=== PATIENT | male | born 1965 | race Caucasian/White ===

== ENCOUNTER 2020-07-08 11:45 | Inpatient (IN) | payer OTHER, SELFPAY ==
[2020-07-08] VITALS (12 sets, daily range): BP systolic 122–145; BP diastolic 67–85; PULSE 89–105; RESP 16–29; TEMP 36.1–37.2; O2SAT 90–96; BMI 30.1; BMI 31.5; BMI 31.6
--- NOTE | 2020-07-08 12:20 | RAD_ITS ---
STUDY: X-RAY CHEST REASON FOR EXAM: Male, 55 years old. COUGH TECHNIQUE: Single AP portable view of the chest. COMPARISON: None. FINDINGS: Patchy airspace disease in both lungs however, greatest on the left. No consolidation or effusion. There is no demonstrated pleural abnormality. Normal size heart. Normal mediastinum and vicente. Normal visualized pulmonary arteries. Normal visualized aortic arch and descending thoracic aorta. Normal visualized thoracic spine. Normal visualized ribs, clavicles, and shoulders. There is no demonstrated abnormality of the visualized soft tissue structures of the upper abdomen. RAD/Chest 1 View (Portable) IMPRESSION: Patchy airspace disease bilaterally Electronically Signed: Scott Carmichael DO at 13:31 EST Tel , Service support ,
--- NOTE | 2020-07-08 12:22 | ED.VISSUMM ---
- ER Visit Summary Date of Service: 07/08/20 Chief Complaint: Shortness of breath and cough History of Present Illness: The patient is a 55 M who presents with shortness of breath and cough that has been getting worse over the past 10 days. Patient was diagnosed with COVID-19 on 07/05/2020. Patient states his chest feels like it is burning. Patient states it is worse with deep breathing. Patient admits to loss of taste and smell. Patient states she has been having fevers up to 102.5 at home but these are improving. Patient admits to some headaches. Patient denies any rhinorrhea or sore throat. Patient denies any chest pain or palpitations. Patient admits to decreased appetite but denies any nausea or vomiting. Physical Examination: Vital signs are stable. Patient is afebrile. Patient is in no acute distress. Oral mucosa is pink and moist. Neck is supple. Trachea is midline. There is no JVD noted. Heart was regular rate and rhythm. Lungs are clear but diminished bilaterally. Abdomen is soft. Bowel sounds are normal. There is no tenderness. There is no rebound or guarding noted. Skin is warm and dry. Cranial nerves II through XII are intact. There are no focal motor or sensory deficits noted. Extremities are intact. There is no calf tenderness or edema. Test Results: CBC shows white blood cell count 4.0. Comprehensive metabolic profile was within normal limits. Portable chest x-ray was obtained. There is 1 view. On my interpretation, there is patchy bilateral airspace disease. There is no effusion noted. There is no cardiomegaly noted. There is no pneumothorax. Bony thorax is normal. Radiologist also interpreted the x-ray and agrees. Emergency Department Course and Treatment: Patient was given 6 puffs of an albuterol inhaler here. Patient was ambulated on room air patient's pulse oximeter dropped to 88% at the end of ambulation. Patient was placed back on oxygen at 2 L nasal cannula and his saturation improved to 95%. Patient was given a dose of Decadron here. Case was discussed with the hospitalist. She will admit the patient to her service. Patient understood and was agreeable with the plan. All questions were answered. Disposition: Admit to hospital Impression: 1. COVID-19 pneumonia 2. Hypoxia This note was generated with [employer] software. It may contain incorrect words, spelling, and punctuation that were not noted in review of the chart prior to signing ED Disposition - Plan for ED Patient: Disposition: Acute Care Hospital [facility] Diagnosis: Pneumonia due to COVID-19 virus, Hypoxia Referrals: Oswald Kenyon MD [Primary Care Provider] -
[2020-07-08 12:39] LABS: Absolute Lymphocyte Count 0.52 X10^3/uL (0.83-4.51); Absolute Neutrophil Count 3.3 X10^3/uL (2.0-7.7); Basophil# 0.01 X10^3/uL; Basophil% 0.2 % (0-1); Hematocrit 41.4 % (40-54); Hemoglobin 13.6 g/dL (13.0-16.5); Lymphocyte # 0.52 X10^3/ul (4.0); Lymphocyte % 12.9 % (19-41); Mean Corp Hgb Conc 32.9 g/dL (32-36); Mean Corpuscular Volume 85.2 fL (80-94); Monocyte# 0.24 X10^3/uL; NRBC Flagged by Analyzer 0 % (0-5); Neutrophil # 3.25 X10^3/uL (2.7-7.7); Neutrophil % 80.7 % (47-70); POSITIVE DIFFERENTIAL YES; Platelet Count 154 K/mm3 (150-450); RBC Distribution Width CV 12.8 % (11.6-14.6); RBC Distribution Width SD 40.5 fl (35.1-43.9); Red Blood Count 4.86 M/mm3 (4.6-6.2)
[2020-07-08 12:47] LABS: Differential Indicated SCAN CRITERIA MET
[2020-07-08 13:04] LABS: Differential Comment SCANNED
[2020-07-08 14:12] LABS: ALB/GLOB Ratio 0.8 RATIO (0.9-2.4); AST(SGOT) 33 U/L (15-37); Alanine Aminotransfer ALT/SGPT 35 U/L (16-61); Albumin, Serum 3.2 g/dL (3.2-5.0); Alkaline Phosphatase 75 U/L (45-117); Anion Gap 6 (5-15); BUN 14 mg/dL (7-18); BUN/Creat Ratio 16.4 RATIO (10-20); Calcium,Total 8.3 mg/dL (8.5-10.1); Chloride 100 mmol/L (98-107); Creatinine, Serum 0.86 mg/dL (0.70-1.30); EST Glomerular Filtration Rate 99 mL/min (>60); Est Glom Filt Rate - Afr Amer 120 mL/min (>60); Estimated Creatinine Clearance 102.57 ml/min; Globulin 4.2 g/dL (2.2-4.2); Glucose 151 mg/dL (74-106); Potassium 3.6 mmol/L (3.5-5.1); Protein, Total 7.4 g/dL (6.4-8.2); Sodium Level 136 mmol/L (136-145)
[2020-07-08] MEDS: dexAMETHasone 10 MG/ML Vial IV (14:57)
--- NOTE | 2020-07-08 15:02 | HP.PCM_ITS ---
Problem List (1) Pneumonia due to COVID-19 virus Status: Acute (2) Hypoxia Status: Acute (3) Diabetes mellitus, type II Status: Chronic Qualifiers: Diabetes mellitus salvage determiner insulin use: without salvage determiner use Diabetes mellitus complication status: with other specified complication Qualified Code(s): E11.69 - Type 2 diabetes mellitus with other specified complication (4) Hypertension Status: Chronic Qualifiers: Hypertension type: essential hypertension Qualified Code(s): I10 - Essential (primary) hypertension (5) Hyperlipidemia Status: Chronic Qualifiers: Hyperlipidemia type: unspecified Qualified Code(s): E78.5 - Hyperlipidemia, unspecified (6) Obesity (BMI 30.0-34.9) Status: Chronic History of Present Illness Date of Admission: 07/08/20 Chief Complaint: Dyspnea, hypoxia, recent + COVID The patient is a 55 y/o M w/ PMHx: HTN, HLD, Diabetes mellitus type II, Obesity who presents to the [facility] ED on 07/08/20 with noted initial 06/28/20 onset COVID symptoms including fever, chills, headaches, alteration in sense of taste and smell as well as dyspnea and cough, progressively worsening, worse with exertion with hypoxia with reportedly positive testing on 07/05/2020 with referral per primary care to the ED for possible admission given worsening status. Patient at home has been having fevers up to 102.5 but notes these have been improving. 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 His is a teacher and has been at home during this time with no ill contacts and she has remained healthy per his report. Work-up in the ED included T 97, heart rate 105, BP 128/77, respiratory rate 28, initially 88% on room air with activity, improved to 96% on 2 L nasal cannula, 93% on room air at rest, CBC with WC 4, hemoglobin 13.6, platelet 154 with lymphopenia, CMP with glucose 151 otherwise not marked appearing, chest x-ray with patchy airspace disease bilaterally. In the ED patient ministered albuterol as well as Decadron. Past Medical History Past Medical History (Chronic Problems): Chronic Problems Diabetes mellitus, type II (Chronic) Hypertension (Chronic) Hyperlipidemia (Chronic) Obesity (BMI 30.0-34.9) (Chronic) Allergies No Known Allergies Allergy (Verified 12/26/20 11:46) Home Medications: Ambulatory Orders Medication Instructions Recorded Aspirin 325 mg PO DAILY@0800 11/28/15 Cyanocobalamin (Vitamin B-12) 2,000 mcg PO DAILY 11/28/15 [Vitamin B-12] Lisinopril [Zestril] 2.5 mg PO DAILY 11/28/15 Multivitamin [Daily Multiple 1 each PO DAILY 11/28/15 Vitamin] Rosuvastatin Calcium [Crestor] 40 mg PO DAILY 11/28/15 Arginine [l-Arginine] 500 mg PO DAILY 07/08/20 Dulaglutide [Trulicity] 1 injectable SQ QWEEK 07/08/20 Magnesium 250 mg PO DAILY 07/08/20 Metformin HCl [Metformin HCl ER] 2,000 mg PO DAILY 07/08/20 Pioglitazone [Actos] 45 mg PO DAILY 07/08/20 Selenium 200 mcg PO DAILY 07/08/20 Sildenafil Citrate [Viagra] 100 mg PO PRN PRN 07/08/20 Surgical History: - - Left knee arthroscopic surgery. Psychiatric History: No pertinent psych hx Lives: Spouse/ Significant Other Smoking Status: Never smoker Tobacco Use: Non-smoker Alcohol: None Drugs: None - *Family History Maternal History Items: Diabetes, Heart Disease Paternal History Items: Cancer - Father with a history of lymphoma., Diabetes, Heart Disease Review of Systems Constitutional: Reports: Anorexia, Chills, Fever, Malaise, Weakness, Fatigue. Denies: Weight Change HEENT: Reports: Head Aches. Denies: Sinus Congestion, Sinus Drainage Cardiovascular: Reports: Chest Pain. Denies: Palpitations Respiratory: Reports: Cough, Pleuritic Pain, Shortness of Breath, Shortness of breath upon exertion. Denies: Shortness of breath at rest, Sputum production, Wheezing Gastrointestinal: Reports: Abdominal Pain. Denies: Diarrhea, Nausea, Vomiting Genitourinary: Denies: Dysuria Musculoskeletal: Reports: Joint Pain, Muscle pain. Denies: Joint Tenderness Skin: Denies: Rash, Wounds Neurological: Denies: Numbness, Tingling, Focal weakness Psychiatric: Denies: Anxiety, Depression, Homicidal Ideations, Suicidal Ideations Hematologic/ Lymphatic: Denies: Easy Bruising, Easy Bleeding VTE Information - Inpt Only VTE Present on Admission: No VTE Mechan Device Prophylaxis: SCD's VTE Pharm Prophylaxis ordered?: Yes Patient Problems: Active and Suspected Problems Pneumonia due to COVID-19 virus (Acute) Hypoxia (Acute) Subjective: Patient seated upright in ED bed, fatigued appearing otherwise no acute distress. Objective: Physical Examination: General: awake, alert, oriented x 3 and cooperative, seated upright in the ED bed, fatigued and ill-appearing but no acute distress. Skin: normal color, turgor, no icterus, cyanosis. HEENT: AT/NC, EOMI, PERRLA, dry MM, no carotid bruits or JVD noted. Lungs: Diffusely diminished, greater bases, decreased effort secondary to coughing elicited with an increased respiratory inspiratory effort, no rales, ronchi or wheezing. Heart: Mildly tachycardic with regular rhythm; no gallop, rub audible. Abdomen: soft, obese, NTTP, ND, mildly hyperactive BS, no HSM. Extremities: no cyanosis, clubbing, or edema. Neurological: patient awake, alert, oriented as noted; cognitive function intact; pupils equally reactive to light and accomodation; cranial nerves II-XII grossly normal, moving all 4 extremities, no focal deficits, strength moderately to severely globally decreased secondary to acute presentation. Psychiatric: affect appears fatigued, ill-appearing, no acute evidence of depressive or anxiety feelings. - Physical Exam Vitals/I&O's: Vital Signs Temp Pulse Resp BP Pulse Ox 97 F L 105 H 28 H 128/77 H 96 07/08/20 11:55 07/08/20 14:22 07/08/20 14:22 07/08/20 14:22 07/08/20 14:22 Oxygen Flow Rate (L/min) 2 Oxygen Delivery Method Nasal Cannula Weight: 210 lb Body Mass Index (BMI) 30.1 Finger Stick Blood Glucose 205 Laboratory Results 07/08/20 12:25: WBC 4.0 L, RBC 4.86, Hgb 13.6, Hct 41.4, MCV 85.2, MCH 28.0, MCHC 32.9, RDW Std Deviation 40.5, RDW Coeff of Salma 12.8, Plt Count 154, MPV 11.0, Immature Gran % (Auto) 0.200, Neut % (Auto) 80.7 H, Lymph % (Auto) 12.9 L, [place] % (Auto) 6.0, Eos % (Auto) 0.0, Baso % (Auto) 0.2, Absolute Neuts (auto) 3.3, Absolute Lymphs (auto) 0.52 L, Nucleated RBC % 0, Differential Comment SCANNED, Diff Path Review November07/08/20 12:25: Sodium 136, Potassium 3.6, Chloride 100, Carbon Dioxide 30.0, Anion Gap 6, BUN 14, Creatinine 0.86, Estim Creat Clear Calc 102.57, Est GFR (MDRD) Af Amer 120, Est GFR (MDRD) Non-Af 99, BUN/Creatinine Ratio 16.4, Glucose 151 H, Calcium 8.3 L, Total Bilirubin 0.60, AST 33, ALT 35, Alkaline Phosphatase 75, Total Protein 7.4, Albumin 3.2, Globulin 4.2, Albumin/Globulin Ratio 0.8 L Assessment/Plan All Active Problems Pneumonia due to COVID-19 virus (Acute) Hypoxia (Acute) The patient is a 55 y/o M w/ PMHx: HTN, HLD, Diabetes mellitus type II, Obesity who presents to the [facility] ED on 07/08/20 with noted initial 06/28/20 onset COVID symptoms including fever, chills, headaches, alteration in sense of taste and smell as well as dyspnea and cough, progressively worsening, worse with exertion with hypoxia with reportedly positive testing on 07/05/2020. 1. Acute Hypoxia, Dyspnea, Cough, Fever with Bilateral Pneumonia secondary to Acute Viral Syndrome, COVID-19: Patient with leukopenia, lymphopenia, CXR with lateral patchy infiltrates, will admit to the COVID unit, will maintain on oxygen with wean as tolerated to room air, HOB, IS parameters w/ pending sputum cultures, respiratory viral panel and urine antigens, will obtain procalcitonin, CRP, CPK, Ferritin, LDH, D-dimer, troponin, continue supportive care including q 2 hour turning including prone given no prone bed availability and judicious hydration, closely monitor for worsening status for ARDS and multiorgan failure, continue IV decadron 6 mg x 10 days total, consult infectious disease for initiation of remdesivir treatment and evaluation. 2. Diabetes mellitus type II: Hold oral home regimen, will need to closely monitor blood sugars as expect elevations given steroid usage, ADA diet, accu checks w/ ISS. 3. Hypertension: Continue home regimen including lisinopril with hold parameters, PRN hydralazine. 4. Hyperlipidemia: Continue home statin regimen. 5. Obesity: Weight loss and lifestyle changes encouraged. 6. DVT Prophylaxis: SCDs, lovenox. 7. CODE STATUS: Full code. Inpatient E&M: 85268 Init Hosp L3
[2020-07-08 16:34] LABS: Ferritin 743 ng/mL (26-388); LDH 286 U/L (87-241); Magnesium 2.2 mg/dL (1.6-2.6)
[2020-07-08 16:40] LABS: BNP,B-Type NATRIURETIC PEPTIDE 24.9 pg/mL (0-100)
[2020-07-08 17:00] LABS: D-Dimer Quantitative (DVT/PE) 0.71 FEU/ug/m (0.27-0.49)
--- NOTE | 2020-07-08 17:29 | CT_ITS ---
STUDY: CTA CHEST REASON FOR EXAM: Male, 55 years old. Viral pneumonia, elevated d-dimer RADIATION DOSAGE (If Supplied By Facility): CTDIvol = ( 25.09 ) mGy, DLP = ( 544.97 ) mGycm TECHNIQUE: The examination was performed with the intravenous administration of IV 100mL Isovue-370. Post-processing of the angiographic images was performed, with multiplanar reformation and 3D reconstruction. Individualized dose optimization techniques were used for this CT. COMPARISON: None. FINDINGS: Examination is technically suboptimal due to injection parameters and scan time and suboptimal enhancement in the pulmonary artery. Enhancement in the pulmonary artery is 191HU, guidelines recommended optimal greater than 250. Additionally, enhancement is higher in the aorta due to late phase of scanning. Diagnostic information is available. There is no large central pulmonary embolism. Segmental and subsegmental arteries are not evaluable. Right heart is normal. Pulmonary artery is normal caliber. Coronary arteries are severely diseased. Cardiac chambers are normal in size and shape with normal pericardium. There are scattered irregularly-shaped mild extent groundglass opacities. Left lower lung is atelectatic due to elevated/eventrated left hemidiaphragm, possibly paralyzed. Right hemidiaphragm is normal. There are no pleural effusions, pulmonary edema or pneumothorax. Osseous structures are intact. Liver is fatty infiltrated. CT/CTA Chest W/WO Contrast IMPRESSION: 1. Technically suboptimal exam. No large/central pulmonary embolism. 2. Refer to ultrasonography of the lower extremities for further risk stratification. 3. Severe coronary artery disease. 4. Elevated left hemidiaphragm, possibly diaphragmatic eventration and/or paralysis. 5. Mild extent acute viral pneumonia. Electronically Signed: Jose Miguel Dhillon, at 19:49 EST Tel , Service support ,
[2020-07-08 17:31] LABS: Bedside Glucose 173 mg/dL (70-110)
[2020-07-08] MEDS: Insulin Lispro 100 UNIT/ML INSULN.PEN SC ×2 (18:20→20:51)
[2020-07-08] MEDS: 0.9% Normal Saline 1,000 ML 100 ML IV (18:21)
[2020-07-08 19:08] LABS: Procalcitonin 0.08 ng/mL (0.00-0.09)
[2020-07-08] MEDS: Enoxaparin 30 MG/0.3 ML Syringe SC (20:52)
[2020-07-08] MEDS: Famotidine 20 MG Tablet PO (20:53)
[2020-07-08] MEDS: Atorvastatin Calcium 80 MG Tablet PO (20:53)
[2020-07-08 21:45] LABS: Bedside Glucose 235 mg/dL (70-110)
--- NOTE | 2020-07-08 22:16 | PCS.PANDOC ---
PANDEMIC DOCUMENTATION INITIATED: Date: 07/08/20 Time: 0700
--- NOTE | 2020-07-08 22:17 | PCS.PANDOC ---
PANDEMIC DOCUMENTATION INITIATED: Date: 07/08/20 Time: 1899
[2020-07-09] VITALS (7 sets, daily range): BP systolic 119–160; BP diastolic 64–75; PULSE 77–90; RESP 18–20; TEMP 36.6–37.2; O2SAT 87–100
[2020-07-09] MEDS: Insulin Lispro 100 UNIT/ML INSULN.PEN SC ×2 (06:02→12:06)
[2020-07-09 06:31] LABS: Bedside Glucose 213 mg/dL (70-110)
[2020-07-09 06:47] LABS: Absolute Lymphocyte Count 0.37 X10^3/uL (0.83-4.51); Absolute Neutrophil Count 3.4 X10^3/uL (2.0-7.7); Basophil# 0.01 X10^3/uL; Basophil% 0.2 % (0-1); Hemoglobin 13.1 g/dL (13.0-16.5); Lymphocyte # 0.37 X10^3/ul (4.0); Mean Corp Hgb Conc 33.6 g/dL (32-36); Mean Corpuscular Hgb 28.5 pg (27.0-32.0); Mean Corpuscular Volume 84.8 fL (80-94); Mean Platelet Vol. 11.8 fl (6.2-12.0); Monocyte# 0.28 X10^3/uL; Monocyte% 6.8 % (0-10); NRBC Flagged by Analyzer 0 % (0-5); Neutrophil # 3.42 X10^3/uL (2.7-7.7); Neutrophil % 83.5 % (47-70); POSITIVE DIFFERENTIAL YES; Platelet Count 163 K/mm3 (150-450); RBC Distribution Width CV 12.9 % (11.6-14.6); RBC Distribution Width SD 39.4 fl (35.1-43.9); White Blood Count 4.1 K/mm3 (4.4-11.0)
[2020-07-09 07:01] LABS: Differential Indicated SCAN CRITERIA MET
--- NOTE | 2020-07-09 07:03 | PN_ITS ---
Patient Problems: Active and Suspected Problems Pneumonia due to COVID-19 virus (Acute) Hypoxia (Acute) Vitals/I&O's: Vital Signs Temp Pulse Resp BP Pulse Ox 99 F 85 18 119/64 93 07/09/20 02:39 07/09/20 02:39 07/09/20 02:39 07/09/20 02:39 07/09/20 02:39 Oxygen Flow Rate (L/min) 2 Oxygen Delivery Method Nasal Cannula Weight: 224 lb Body Mass Index (BMI) 31.5 Finger Stick Blood Glucose 205 Intake and Output for Last 24 Hours 07/07/20 07/08/20 07/09/20 23:59 23:59 23:59 Intake Total 750 / 750 240 / 240 Output Total 400 / 400 Balance 350 / 350 240 / 240 Microbiology Past 72 Hours 07/08/20 22:57 Interface Orders Legionella Antigen - Final 07/08/20 22:57 Interface Orders Streptococcus pneumoniae Antigen (M - Final 07/08/20 19:55 Mucosa - Nasopharyngeal Respiratory Panel (PCR) - Final Laboratory Results 07/08/20 12:25: WBC 4.0 L, RBC 4.86, Hgb 13.6, Hct 41.4, MCV 85.2, MCH 28.0, MCHC 32.9, RDW Std Deviation 40.5, RDW Coeff of Salma 12.8, Plt Count 154, MPV 11. 0, Immature Gran % (Auto) 0.200, Neut % (Auto) 80.7 H, Lymph % (Auto) 12.9 L, [place] % (Auto) 6.0, Eos % (Auto) 0.0, Baso % (Auto) 0.2, Absolute Neuts (auto) 3.3, Absolute Lymphs (auto) 0.52 L, Nucleated RBC % 0, Differential Comment SCANNED, Diff Path Review November07/08/20 12:25: Sodium 136, Potassium 3.6, Chloride 100, Carbon Dioxide 30.0, Anion Gap 6, BUN 14, Creatinine 0.86, Estim Creat Clear Calc 102.57, Est GFR (MDRD) Af Amer 120, Est GFR (MDRD) Non-Af 99, BUN/Creatinine Ratio 16.4, Glucose 151 H, Calcium 8.3 L, Total Bilirubin 0.60, AST 33, ALT 35, Alkaline Phosphatase 75, Total Protein 7.4, Albumin 3.2, Globulin 4.2, Albumin/Globulin Ratio 0.8 L 07/08/20 12:25: D-Dimer Quant (PE/DVT) 0.71 H* 07/08/20 12:25: Magnesium 2.2, Ferritin 743 H, Lactate Dehydrogenase 286 H, Troponin I < 0.015, C-React Prot Ext Range 40.20 H 07/08/20 12:25: B-Natriuretic Peptide 24.9 07/08/20 17:18: POC Glucose 173 H 07/08/20 18:15: Procalcitonin 0.08 07/08/20 20:51: POC Glucose 235 H 07/09/20 05:52: Sodium Pending, Potassium Pending, Chloride Pending, Carbon Dioxide Pending, Anion Gap Pending, BUN Pending, Creatinine Pending, Est GFR (MDRD) Af Amer Pending, Est GFR (MDRD) Non-Af Pending, BUN/Creatinine Ratio Pending, Glucose Pending, Calcium Pending, Total Bilirubin Pending, AST Pending, ALT Pending, Alkaline Phosphatase Pending, Total Protein Pending, Albumin Pending 07/09/20 05:52: WBC 4.1 L, RBC 4.60, Hgb 13.1, Hct 39.0 L, MCV 84.8, MCH 28.5, MCHC 33.6, RDW Std Deviation 39.4, RDW Coeff of Salma 12.9, Plt Count 163, MPV 11.8, Immature Gran % (Auto) 0.500, Neut % (Auto) 83.5 H, Lymph % (Auto) 9.0 L, [place] % (Auto) 6.8, Eos % (Auto) 0.0, Baso % (Auto) 0.2, Absolute Neuts (auto) 3.4, Absolute Lymphs (auto) 0.37 L, Nucleated RBC % 0 07/09/20 06:01: POC Glucose 213 H Current Medications Acetaminophen (Acetaminophen 325 Mg Tablet) 650 mg PO Q6H PRN PRN PRN Reason: Pain Score 1-10/Temp > 100.7 F Al Hydroxide/Mg Hydroxide (Mag Hydrox/Al Hydrox/Simeth 30 Ml Udc) 30 ml PO Q6H PRN PRN PRN Reason: Gastric Burning Albuterol Sulfate (Albuterol Sulfate 8 Gm Inhaler (60 Puffs)) 4 - 8 puff INHALATION Q4H PRN PRN PRN Reason: Dyspnea, wheezing Aspirin (Aspirin 81 Mg Tab.Chew) 81 mg PO DAILY COUNT INCLUDES THE [facility] Atorvastatin Calcium (Atorvastatin Calcium 80 Mg Tablet) 80 mg PO QHS COUNT INCLUDES THE [facility] Last Admin: 07/08/20 20:53 Dose: 80 mg Documented by: Dexamethasone Sodium Phosphate (Dexamethasone 10 Mg/Ml Vial) 6 mg IV DAILY COUNT INCLUDES THE [facility] Stop: 07/18/20 10:01 Enoxaparin Sodium (Enoxaparin 30 Mg/0.3 Ml Syringe) 30 mg SC BID COUNT INCLUDES THE [facility] Last Admin: 07/08/20 20:52 Dose: 30 mg Documented by: Famotidine (Famotidine 20 Mg Tablet) 20 mg PO BID COUNT INCLUDES THE [facility] Last Admin: 07/08/20 20:53 Dose: 20 mg Documented by: Guaifenesin (Guaifenesin 10 Ml Udc (200mg/10ml)) 20 ml PO Q4H PRN PRN PRN Reason: COUGH Hydralazine HCl (Hydralazine 20 Mg/Ml Vial) 10 mg IV Q4H PRN PRN PRN Reason: SBP > 160 Remdesivir 100 mg/ Sodium (Chloride) 250 mls @ 125 mls/hr IV DAILY COUNT INCLUDES THE [facility] Stop: 07/12/20 11:59 Sodium Chloride () 250 mls @ 15 mls/hr IV .[id number] PRN PRN Reason: Saline Flush Sodium Chloride () 250 mls @ 15 mls/hr IV .[id number] PRN PRN Reason: Additional IVPB Infusion Insulin Human Lispro (Insulin Lispro 100 Unit/Ml Insuln.Pen) 0 unit [facility]; Protocol Last Admin: 07/09/20 06:02 Dose: 2 u Documented by: Lisinopril (Lisinopril 2.5 Mg Tablet) 2.5 mg PO DAILY COUNT INCLUDES THE [facility] Magnesium Hydroxide (Magnesium Hydroxide 30 Ml Udc) 30 ml PO DAILY PRN PRN PRN Reason: Constipation Melatonin (Melatonin 3 Mg Tablet) 3 mg PO QHS PRN PRN PRN Reason: INSOMNIA Nitroglycerin (Nitroglycerin (Inpatient Use) 0.4 Mg Tab.Subl) 0.4 mg SUBLINGUAL Q5M PRN PRN Reason: CARDIAC/CHEST PAIN Ondansetron HCl (Ondansetron 4 Mg/2 Ml Vial) 4 mg IV Q8H PRN PRN PRN Reason: NAUSEA/VOMITING Prochlorperazine Edisylate (Prochlorperazine 10 Mg/2 Ml Vial) 5 mg IV Q4H PRN PRN PRN Reason: Breakthrough nausea/vomiting Psyllium Hydrophilic Mucilloid (Psyllium 1 Packet) 1 packet PO DAILY PRN PRN PRN Reason: Constipation Senna/Docusate Sodium (Senna/Docusate Sodium 1 Tablet) 2 tablet PO BID PRN PRN PRN Reason: Constipation Sodium Chloride (0.9% Saline Lock 10 Ml Syringe) 10 - 40 ml IV UD PRN PRN Reason: SALINE FLUSH Throat Lozenges (Benzocaine/Menthol 1 Lozenge) 1 lozenge MUCOUS MEM Q2H PRN PRN PRN Reason: SORE THROAT Medical Necessity - Tobacco Use Smoking Status: Never smoker Tobacco Use: Non-smoker Assessment/Plan All Active Problems Pneumonia due to COVID-19 virus (Acute) Hypoxia (Acute)
[2020-07-09 07:06] LABS: ALB/GLOB Ratio 0.7 RATIO (0.9-2.4); AST(SGOT) 30 U/L (15-37); Alanine Aminotransfer ALT/SGPT 34 U/L (16-61); Albumin, Serum 2.7 g/dL (3.2-5.0); Alkaline Phosphatase 65 U/L (45-117); Anion Gap 8 (5-15); BUN 17 mg/dL (7-18); BUN/Creat Ratio 25.4 RATIO (10-20); Calcium,Total 8.2 mg/dL (8.5-10.1); Chloride 103 mmol/L (98-107); Creatinine, Serum 0.67 mg/dL (0.70-1.30); EST Glomerular Filtration Rate 132 mL/min (>60); Est Glom Filt Rate - Afr Amer 160 mL/min (>60); Estimated Creatinine Clearance 131.65 ml/min; Glucose 202 mg/dL (74-106); Potassium 3.7 mmol/L (3.5-5.1); Protein, Total 6.7 g/dL (6.4-8.2); Sodium Level 137 mmol/L (136-145)
[2020-07-09 07:32] LABS: Differential Comment SCANNED
[2020-07-09] MEDS: Aspirin 81 MG TAB.CHEW PO (09:12)
[2020-07-09] MEDS: Famotidine 20 MG Tablet PO (09:12)
[2020-07-09] MEDS: Enoxaparin 30 MG/0.3 ML Syringe SC (09:12)
[2020-07-09] MEDS: Lisinopril 2.5 MG Tablet PO (09:12)
[2020-07-09] MEDS: dexAMETHasone 10 MG/ML Vial 6 MG IV (09:13)
[2020-07-09] MEDS: 0.9% Saline Lock 10 ML Syringe IV (09:14)
--- NOTE | 2020-07-09 11:43 | DCINST_ITS ---
- Discharge Diagnoses Current Active Problems: Current Active and Chronic Problems 1. Acute Hypoxia, Dyspnea, Cough, Fever with Bilateral Pneumonia secondary to Acute Viral Syndrome, COVID-19 2. Diabetes mellitus type II 3. Hypertension 4. Hyperlipidemia 5. Obesity You will use the following diet at home:: Calorie/Carbohydrate Controlled (specify 1200, 1400, etc) - Slowly advance your diet as tolerated to ADA diet. Please continue to eat at least a small portion with each meal even if altered taste ongoing. Your food should be the consistency of: Regular Your liquids should be the consistency of: Regular/Thin Discharge Activity: - - Encourage routine movement and continued aggressive incentive spirometer usage of 10x/hr from 7a-7p or upon waking to bedtime. Call your doctor if you observe: Fever of 101 or Higher, Inability to urinate, Inability to have a bowel movement, Shortness of breath, Dizziness, Fainting spells, Chest pain, Uncontrolled pain Instructions: COVID-19: Lying in a Prone Position (Proning), Traveling with Oxygen, Using Oxygen Safely, Coronavirus Disease 2019 (COVID-19): Overview, Coronavirus Disease 2019 (COVID-19): Caring for Yourself or Others, Preventing the Spread of Infection Understanding Isolation Procedures Additional Instructions: Given the severity of your symptoms you would be considered severe and will require a 21 day quarantine to continue through 07/16/19. Please complete the regimen of decadron and while using closely monitor your blood sugars, understanding that likely they will increase while using this steroid. Please continue aggressive incentive spirometer usage at discharge also. Continue home oxygen supplementation until you are cleared by your primary care physician for discontinuation as often people can have low oxygen levels and be asymptomatic with COVID-19. When can positive or suspected COVID-19 patients be discharged, what are the requirements and what needs to be in place for discharge? ?They can be discharged when they are clinically stable. ?They do not need to meet criteria for transmission-based precautions to be discharged as these may be continued at home. ?Patient needs to be able to call for assistance if worsens. ?Household members must have access to PPE and willing to adhere to precaution measures at home. ?The patient needs preferentially to have access to a separate bedroom and bathroom. ?Members in the household must not be at increased risk of COVID-19. ?Must be able to be transported by private vehicle and deliver driver abide personal PPE. Home going instructions: ?Patient to continue similar isolation as in hospital and those also in the home to continue precautions until isolation complete. Transmission-based Precaution Timeline: ?Patients with a confirmed or high suspicion of COVID-19 should remain under home isolation until cleared per infectious disease as noted above. ?Further testing is not required beyond this unless there was noted organ dysfunction. Follow-up Care: ?The primary care should be informed of a COVID-19 positive test if resulted while in the hospital and virtual versus in person follow-up should be arranged. Allergies/Adverse Reactions: Allergies No Known Allergies Allergy (Verified 07/08/20 11:46) Medications to take at Discharge Aspirin 325 mg PO DAILY@0800 11/28/15 Cyanocobalamin (Vitamin B-12) [Vitamin B-12] 2,000 mcg PO DAILY 11/28/15 Lisinopril [Zestril] 2.5 mg PO DAILY 11/28/15 Multivitamin [Daily Multiple Vitamin] 1 each PO DAILY 11/28/15 Rosuvastatin Calcium [Crestor] 40 mg PO DAILY 11/28/15 Arginine [l-Arginine] 500 mg PO DAILY 07/08/20 Dulaglutide [Trulicity] 1 injectable SQ QWEEK 07/08/20 Magnesium 250 mg PO DAILY 07/08/20 Metformin HCl [Metformin HCl ER] 2,000 mg PO DAILY 07/08/20 Pioglitazone [Actos] 45 mg PO DAILY 07/08/20 Selenium 200 mcg PO DAILY 07/08/20 Sildenafil Citrate [Viagra] 100 mg PO PRN PRN 07/08/20 Albuterol Inhaler [Ventolin Hfa] 4 - 8 puff INHALATION Q4H PRN PRN #1 inhaler 07/09/20 Dexamethasone [Decadron] 6 mg PO DAILY 8 Days #8 tab 07/09/20 Famotidine [Pepcid] 20 mg PO BID #60 tab 07/09/20 The following prescriptions were given: Dexamethasone [Decadron] 6 mg PO DAILY 8 Days #8 tab Transmission Status: Pending to [facility] Famotidine [Pepcid] 20 mg PO BID #60 tab Transmission Status: Pending to [facility] [id number] Albuterol Inhaler [Ventolin Hfa] 4 - 8 puff INHALATION Q4H PRN PRN #1 inhaler PRN Reason: Dyspnea, wheezing Transmission Status: Pending to [facility] Primary Care Physician: Oswald Kenyon MD [Primary Care Provider] - Please follow up with your Primary Care Physician in: Follow-up within 3-5 days to review admission. Test Results: Test results from this visit will be discussed in further detail at your follow- up appointment, if applicable. Proposed Discharge Date: 07/09/20
--- NOTE | 2020-07-09 11:50 | PCM.DC.SUM ---
Discharge Date and Diagnosis - Problem List Patient Problems: Active and Suspected Problems Pneumonia due to COVID-19 virus (Acute) Hypoxia (Acute) Date of Admission: 07/08/20 Date of Discharge: 07/09/20 - Primary Discharge Diagnosis Acute Problems: Active Problems 1. Acute Hypoxia, Dyspnea, Cough, Fever with Bilateral Pneumonia secondary to Acute Viral Syndrome, COVID-19 2. Diabetes mellitus type II 3. Hypertension 4. Hyperlipidemia 5. Obesity - Secondary Discharge Diagnosis Chronic Problems: Chronic Problems Diabetes mellitus, type II (Chronic) Hypertension (Chronic) Hyperlipidemia (Chronic) Obesity (BMI 30.0-34.9) (Chronic) Hospital Course and Treatment Operations: None Procedures: EKG Summary of Care Provided: The patient is a 55 y/o M w/ PMHx: HTN, HLD, Diabetes mellitus type II, Obesity who presented to the [facility] ED on 07/08/20 with noted initial 06/28/20 onset COVID symptoms including fever, chills, headaches, alteration in sense of taste and smell as well as dyspnea and cough, progressively worsening, worse with exertion with hypoxia with reportedly positive testing on 07/05/2020 with referral per primary care to the ED for possible admission given worsening status. Patient at home has been having fevers up to 102.5 but notes these have been improving. 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 Work-up in the ED included T 97, heart rate 105, BP 128/77, respiratory rate 28, initially 88% on room air with activity, improved to 96% on 2 L nasal cannula, 93% on room air at rest, CBC with WC 4, hemoglobin 13.6, platelet 154 with lymphopenia, CMP with glucose 151 otherwise not marked appearing, chest x-ray with patchy airspace disease bilaterally. In the ED patient administered albuterol as well as Decadron. The patient was admitted to the COVID unit, maintained on oxygen with oxygenation assessment for discharge requiring 2L supplementation as < 88% at rest and improved to low 90s with 2L NC with activity, HOB, IS parameters w/ unremarkable respiratory viral panel and negative urine antigens, d-dimer mildly elevated 0.71 with follow-up CTPA with no obvious evidence of large or central pulmonary emboli, evidence of coronary artery disease, elevated left hemidiaphragm, evidence mild acute viral pneumonia consistent with COVID. Ferritin 743, LDH 286, CRP 40.20, BNP 24.9, troponin less than 0.015, procalcitonin 0.08. Patient was maintained on IV decadron 6 mg with transition to oral regimen with plan 10 days total, consult infectious disease for initiation of remdesivir treatment and evaluation. Given clinical improvement above expected on 07/09/2020 patient amenable to discharge to home with continued 2 L nasal cannula supplementation, continuation and completion of Decadron regimen and close early follow-up with primary care physician. DAY OF DISCHARGE PROGRESS NOTE: Subjective: Patient without acute event overnight per self and nursing report. Patient feels remarkably improved since day prior, less short of breath, still coughing and dyspnea with exertion with required oxygen supplementation but better than previously he notes. Patient notes less nauseous and was able to tolerate some intake with improvement of his taste and smell. Patient agreeable to discharge to home. Patient will be discharged with follow-up with primary care physician within 3-5 days. Objective: T 97.8, heart rate 90, BP 125/70, respiratory rate 18, 92% on 2 L nasal cannula. Physical Examination: General: awake, alert, oriented x 3 and cooperative, seated upright in the medical surgical bedside chair, less fatigued than day prior, notes breathing is somewhat easier. Skin: normal color, turgor, no icterus, cyanosis. HEENT: AT/NC, EOMI, PERRLA, improved MMM. Lungs: Improved effort, still diminished, greater bases, still shallow secondary to coughing elicited with deep inspiration, no rales, ronchi or wheezing; Heart: Regular rate and rhythm; no gallop, rub audible. Abdomen: soft, obese, NTTP, ND, less hyperactive BS. Extremities: no cyanosis, clubbing, or edema. Neurological: patient awake, alert, oriented as noted; cognitive function appears intact upon questioning,; pupils equally reactive to light and accomodation; cranial nerves II-XII grossly normal, moving all 4 extremities, strength improving, mildly to moderately global decrease. Psychiatric: affect appears improved, more alert, less ill-appearing, no acute evidence of depressive or anxiety feelings. Assessment and Plan: Please see hospital summary above. Patient Problems: Active and Suspected Problems Pneumonia due to COVID-19 virus (Acute) Hypoxia (Acute) - Physical Exam Vitals/I&O's: Vital Signs Temp Pulse Resp BP Pulse Ox 98.1 F 77 20 H 160/70 H 100 07/09/20 09:28 07/09/20 09:28 07/09/20 09:28 07/09/20 09:28 07/09/20 09:28 Oxygen Flow Rate (L/min) 2 Oxygen Delivery Method Room Air Weight: 224 lb Body Mass Index (BMI) 31.5 Finger Stick Blood Glucose 205 Intake and Output for Last 24 Hours 07/07/20 07/08/20 07/09/20 23:59 23:59 23:59 Intake Total 750 / 750 1240 / 1240 Output Total 400 / 400 Balance 350 / 350 1240 / 1240 Microbiology Past 72 Hours 07/08/20 22:57 Interface Orders Legionella Antigen - Final 07/08/20 22:57 Interface Orders Streptococcus pneumoniae Antigen (M - Final 07/08/20 19:55 Mucosa - Nasopharyngeal Respiratory Panel (PCR) - Final Laboratory Results 07/08/20 12:25: WBC 4.0 L, RBC 4.86, Hgb 13.6, Hct 41.4, MCV 85.2, MCH 28.0, MCHC 32.9, RDW Std Deviation 40.5, RDW Coeff of Salma 12.8, Plt Count 154, MPV 11.0, Immature Gran % (Auto) 0.200, Neut % (Auto) 80.7 H, Lymph % (Auto) 12.9 L, [place] % (Auto) 6.0, Eos % (Auto) 0.0, Baso % (Auto) 0.2, Absolute Neuts (auto) 3.3, Absolute Lymphs (auto) 0.52 L, Nucleated RBC % 0, Differential Comment SCANNED, Diff Path Review November07/08/20 12:25: Sodium 136, Potassium 3.6, Chloride 100, Carbon Dioxide 30.0, Anion Gap 6, BUN 14, Creatinine 0.86, Estim Creat Clear Calc 102.57, Est GFR (MDRD) Af Amer 120, Est GFR (MDRD) Non-Af 99, BUN/Creatinine Ratio 16.4, Glucose 151 H, Calcium 8.3 L, Total Bilirubin 0.60, AST 33, ALT 35, Alkaline Phosphatase 75, Total Protein 7.4, Albumin 3.2, Globulin 4.2, Albumin/Globulin Ratio 0.8 L 07/08/20 12:25: D-Dimer Quant (PE/DVT) 0.71 H* 07/08/20 12:25: Magnesium 2.2, Ferritin 743 H, Lactate Dehydrogenase 286 H, Troponin I < 0.015, C-React Prot Ext Range 40.20 H 07/08/20 12:25: B-Natriuretic Peptide 24.9 07/08/20 17:18: POC Glucose 173 H 07/08/20 18:15: Procalcitonin 0.08 07/08/20 20:51: POC Glucose 235 H 07/09/20 05:52: Sodium 137, Potassium 3.7, Chloride 103, Carbon Dioxide 26.0, Anion Gap 8, BUN 17, Creatinine 0.67 L, Estim Creat Clear Calc 131.65, Est GFR (MDRD) Af Amer 160, Est GFR (MDRD) Non-Af 132, BUN/Creatinine Ratio 25.4 H, Glucose 202 H, Calcium 8.2 L, Total Bilirubin 0.40, AST 30, ALT 34, Alkaline Phosphatase 65, Total Protein 6.7, Albumin 2.7 L, Globulin 4.0, Albumin/Globulin Ratio 0.7 L 07/09/20 05:52: WBC 4.1 L, RBC 4.60, Hgb 13.1, Hct 39.0 L, MCV 84.8, MCH 28.5, MCHC 33.6, RDW Std Deviation 39.4, RDW Coeff of Salma 12.9, Plt Count 163, MPV 11.8, Immature Gran % (Auto) 0.500, Neut % (Auto) 83.5 H, Lymph % (Auto) 9.0 L, [place] % (Auto) 6.8, Eos % (Auto) 0.0, Baso % (Auto) 0.2, Absolute Neuts (auto) 3.4, Absolute Lymphs (auto) 0.37 L, Nucleated RBC % 0, Differential Comment SCANNED, Diff Path Review November07/09/20 06:01: POC Glucose 213 H Current Medications Acetaminophen (Acetaminophen 325 Mg Tablet) 650 mg PO Q6H PRN PRN PRN Reason: Pain Score 1-10/Temp > 100.7 F Al Hydroxide/Mg Hydroxide (Mag Hydrox/Al Hydrox/Simeth 30 Ml Udc) 30 ml PO Q6H PRN PRN PRN Reason: Gastric Burning Albuterol Sulfate (Albuterol Sulfate 8 Gm Inhaler (60 Puffs)) 4 - 8 puff INHALATION Q4H PRN PRN PRN Reason: Dyspnea, wheezing Aspirin (Aspirin 81 Mg Tab.Chew) 81 mg PO DAILY [facility] Last Admin: 07/09/20 09:12 Dose: 81 mg Documented by: Atorvastatin Calcium (Atorvastatin Calcium 80 Mg Tablet) 80 mg PO QHS [facility] Last Admin: 07/08/20 20:53 Dose: 80 mg Documented by: Dexamethasone Sodium Phosphate (Dexamethasone 10 Mg/Ml Vial) 6 mg IV DAILY [facility] Stop: 07/18/20 10:01 Last Admin: 07/09/20 09:13 Dose: 6 mg Documented by: Enoxaparin Sodium (Enoxaparin 30 Mg/0.3 Ml Syringe) 30 mg SC BID [facility] Last Admin: 07/09/20 09:12 Dose: 30 mg Documented by: Famotidine (Famotidine 20 Mg Tablet) 20 mg PO BID [facility] Last Admin: 07/09/20 09:12 Dose: 20 mg Documented by: Guaifenesin (Guaifenesin 10 Ml Udc (200mg/10ml)) 20 ml PO Q4H PRN PRN PRN Reason: COUGH Hydralazine HCl (Hydralazine 20 Mg/Ml Vial) 10 mg IV Q4H PRN PRN PRN Reason: SBP > 160 Remdesivir 100 mg/ Sodium (Chloride) 250 mls @ 125 mls/hr IV DAILY [facility] Stop: 07/12/20 11:59 Last Admin: 07/09/20 11:32 Dose: Not Given Documented by: Sodium Chloride () 250 mls @ 15 mls/hr IV .[id number] PRN PRN Reason: Saline Flush Sodium Chloride () 250 mls @ 15 mls/hr IV .[id number] PRN PRN Reason: Additional IVPB Infusion Insulin Human Lispro (Insulin Lispro 100 Unit/Ml Insuln.Pen) 0 unit [facility]; Protocol Last Admin: 07/09/20 06:02 Dose: 2 u Documented by: Lisinopril (Lisinopril 2.5 Mg Tablet) 2.5 mg PO DAILY [facility] Last Admin: 07/09/20 09:12 Dose: 2.5 mg Documented by: Magnesium Hydroxide (Magnesium Hydroxide 30 Ml Udc) 30 ml PO DAILY PRN PRN PRN Reason: Constipation Melatonin (Melatonin 3 Mg Tablet) 3 mg PO QHS PRN PRN PRN Reason: INSOMNIA Nitroglycerin (Nitroglycerin (Inpatient Use) 0.4 Mg Tab.Subl) 0.4 mg SUBLINGUAL Q5M PRN PRN Reason: CARDIAC/CHEST PAIN Ondansetron HCl (Ondansetron 4 Mg/2 Ml Vial) 4 mg IV Q8H PRN PRN PRN Reason: NAUSEA/VOMITING Prochlorperazine Edisylate (Prochlorperazine 10 Mg/2 Ml Vial) 5 mg IV Q4H PRN PRN PRN Reason: Breakthrough nausea/vomiting Psyllium Hydrophilic Mucilloid (Psyllium 1 Packet) 1 packet PO DAILY PRN PRN PRN Reason: Constipation Senna/Docusate Sodium (Senna/Docusate Sodium 1 Tablet) 2 tablet PO BID PRN PRN PRN Reason: Constipation Sodium Chloride (0.9% Saline Lock 10 Ml Syringe) 10 - 40 ml IV UD PRN PRN Reason: SALINE FLUSH Last Admin: 07/09/20 09:14 Dose: 10 ml Documented by: Throat Lozenges (Benzocaine/Menthol 1 Lozenge) 1 lozenge MUCOUS MEM Q2H PRN PRN PRN Reason: SORE THROAT Discharge Activity: - - Encourage routine movement and continued aggressive incentive spirometer usage of 10x/hr from 7a-7p or upon waking to bedtime. Call your doctor if you observe: Fever of 101 or Higher, Inability to urinate, Inability to have a bowel movement, Shortness of breath, Dizziness, Fainting spells, Chest pain, Uncontrolled pain Home Medications: Medications to take at Discharge Aspirin 325 mg PO DAILY@0800 11/28/15 Cyanocobalamin (Vitamin B-12) [Vitamin B-12] 2,000 mcg PO DAILY 11/28/15 Lisinopril [Zestril] 2.5 mg PO DAILY 11/28/15 Multivitamin [Daily Multiple Vitamin] 1 each PO DAILY 11/28/15 Rosuvastatin Calcium [Crestor] 40 mg PO DAILY 11/28/15 Arginine [l-Arginine] 500 mg PO DAILY 07/08/20 Dulaglutide [Trulicity] 1 injectable SQ QWEEK 07/08/20 Magnesium 250 mg PO DAILY 07/08/20 Metformin HCl [Metformin HCl ER] 2,000 mg PO DAILY 07/08/20 Pioglitazone [Actos] 45 mg PO DAILY 07/08/20 Selenium 200 mcg PO DAILY 07/08/20 Sildenafil Citrate [Viagra] 100 mg PO PRN PRN 07/08/20 Albuterol Inhaler [Ventolin Hfa] 4 - 8 puff INHALATION Q4H PRN PRN #1 inhaler 07/09/20 Dexamethasone [Decadron] 6 mg PO DAILY 8 Days #8 tab 07/09/20 Famotidine [Pepcid] 20 mg PO BID #60 tab 07/09/20 Following Prescriptions Were Given to Patient: Dexamethasone [Decadron] 6 mg PO DAILY 8 Days #8 tab Transmission Status: Pending to [facility] 1724 Famotidine [Pepcid] 20 mg PO BID #60 tab Transmission Status: Pending to [facility] 1724 Albuterol Inhaler [Ventolin Hfa] 4 - 8 puff INHALATION Q4H PRN PRN #1 inhaler PRN Reason: Dyspnea, wheezing Transmission Status: Pending to [facility] Primary Care Physician: Oswald Kenyon MD [Primary Care Provider] - Please follow up with your Primary Care Physician in: Follow-up within 3-5 days to review admission. Patient Instructions: Coronavirus Disease 2019 (COVID-19): Overview, Coronavirus Disease 2019 (COVID-19): Caring for Yourself or Others, COVID-19: Lying in a Prone Position (Proning), Traveling with Oxygen, Using Oxygen Safely, Preventing the Spread of Infection Understanding Isolation Procedures Disposition: Home with Home Health Minutes spent on discharge:: 35 Patient Condition:: Fair Medical Necessity - Tobacco Use Smoking Status: Never smoker Tobacco Use: Non-smoker Meaningful Use Info Meaningful Use Diagnoses (Choose all that apply): None applicable Inpatient E&M: 85691 Disch Hosp
[2020-07-09 12:51] LABS: Bedside Glucose 240 mg/dL (70-110)
--- NOTE | 2020-07-09 14:17 | NURSING ---
This nurse faxed information to [facility] and spoke with them regarding need for home oxygen set up and portable tank of o2 for here.
[2020-07-10 12:25] LABS: Pathologist Review Reviewed
--- NOTE | 2020-07-10 15:04 | CASEMGMT ---
[facility] DC PHONE CALL DC DATE: 07/09/2020 DC DISPOSITION: Home with oxygen DC DIAGNOSIS: SARS COVID 2 Intro role of CM to patient via phone. Patient states he did go home with Home oxygen. He does not have a pulse oximeter. P[facility]RO WESTON offered to check with ER for pulse ox, or he could purchase at local pharmacy. Pt will discuss with his . He states he is not short of breath at rest or with activity. Recommended he update his PCP of discharge home with oxygen and he states he will call tomorrow. No further questions. Constance LEVINN RN ACM
[2020-07-11 11:07] LABS: Pathologist Review Reviewed
== END 2020-07-09 17:35 | disposition home health service (06) | DRG 177 ==
LOC: ED 14:59 → MS2 15:24
PROVIDERS: Admitting Provider Family Medicine; Emergency Provider Emergency Medicine; PCP Family Medicine; Visit Provider Family Medicine
DX: U07.1 COVID-19 (principal); J12.89 Other viral pneumonia; E11.9 Type 2 diabetes mellitus without complications; I10 Essential (primary) hypertension; E78.5 Hyperlipidemia, unspecified; E66.9 Obesity, unspecified; R09.02 Hypoxemia; Z68.30 Body mass index [BMI] 30.0-30.9, adult; Z79.82 Long term (current) use of aspirin; Z83.3 Family history of diabetes mellitus
CPT/HCPCS: 36415; 71045; 71275; 80053; 82728; 82962; 83615; 83735; 83880; 84145; 84484; 85025; 85379; 86140; 87449; 87633; 94640; 99251; 99285; J7030; J7050; Q9967; A4216; G0463

== ENCOUNTER → 2025-01-19 | Outpatient (CLI) | payer OTHER, SELFPAY ==
--- NOTE | 2025-01-19 17:10 | RAD_ITS ---
PROCEDURE: CHEST PA AND LATERAL 01/19/2025 REASON FOR EXAM: CAD TECHNIQUE: CHEST PA AND LATERAL COMPARISON: 07/08/2020 FINDINGS: No focal consolidation. Bibasilar subsegmental atelectasis. No pleural effusion or pneumothorax. Cardiac silhouette is within normal limits. No acute fracture. RAD/Chest PA and Lateral IMPRESSION: No focal consolidations. Bibasilar subsegmental atelectasis. Reading Location: [id number]
[2025-01-19 17:18] LABS: Hematocrit 45.0 % (40-54); Hemoglobin 14.9 g/dL (13.0-16.5); Immature Granulocytes Count 0.030 X10^3/uL (0.0-0.0); Mean Corp Hgb Conc 33.1 g/dL (32-36); Mean Corpuscular Volume 86.2 fL (80-94); Mean Platelet Vol. 11.8 fl (6.2-12.0); NRBC Flagged by Analyzer 0 % (0-5); Platelet Count 189 K/mm3 (150-450); RBC Distribution Width CV 13.2 % (11.6-14.6); RBC Distribution Width SD 41.2 fl (35.1-43.9); Red Blood Count 5.22 M/mm3 (4.6-6.2); White Blood Count 6.2 K/mm3 (4.4-11.0)
[2025-01-19 17:59] LABS: Anion Gap 14 (5-15); BUN 24 mg/dL (4-19); BUN/Creat Ratio 26.4 RATIO (10-20); Calcium,Total 9.2 mg/dL (7.6-11.0); Carbon Dioxide 23.0 mmol/L (21.0-32.0); Chloride 102 mmol/L (98-108); Glucose 259 mg/dL (70-99); Potassium 4.6 mmol/L (3.3-5.1)
== END | disposition home or self-care (01) ==
PROVIDERS: PCP Family Medicine; Referring Provider Internal Medicine Cardiovascular Disease; Visit Provider Internal Medicine Cardiovascular Disease
DX: I25.10 Atherosclerotic heart disease of native coronary artery without angina pectoris (principal); R07.9 Chest pain, unspecified
CPT/HCPCS: 36415; 71046; 80048; 85025

== ENCOUNTER 2025-02-07 09:33 | Day surgery (SDC) | payer OTHER, SELFPAY ==
[2025-02-04 11:08] VITALS: BMI 29.0
--- NOTE | 2025-02-21 09:47 | CL.D_ITS ---
Patient Name: WALLACE TURK Study Date: 02/07/2025 Performing: Az Enrique MD Ht: 70 inches 177.8 cm : 1965 Wt: 202.01 lbs 91.63 kg Age: 59 Gender: male BSA: 2.1 PROCEDURE(S) PERFORMED DC01-(70401)LHC/COR/LV CLINICAL PROFILE AND INDICATIONS Indications: Suspected CAD Heart Failure: None Stress/Imaging Stress/Image Study Performed: No CAD Presentations: Unstable angina. CONCLUSIONS Severe triple-vessel disease noted with left ventricular systolic dysfunction mild and a diabetic. RECOMMENDATIONS Surgery consult for coronary revascularization DESCRIPTION OF PROCEDURE The patient arrived to the procedure lab. The risks and benefits of the procedure as well as a full description of our services here and current unavailability of surgical backup were fully explained to the patient and/or their significant other prior to the catheterization. The Timeout was completed, verifying the correct patient and procedure. The patient's procedural site was prepped and draped in the usual fashion. Local anesthetic was given subcutaneously to right radial region with Lidocaine 2%. Using a modified Seldinger technique, arterial access was obtained via the right radial artery, a 6Fr sheath was inserted. Right Coronary Artery selective angiography was then performed in multiple views using a 5 Fr. 4.0 [place] catheter. Left Coronary Artery selective angiography was performed in multiple views using a 5 Fr. 4.0 [place] catheter. Left Ventriculography was performed in JUÁREZ projection using a 5 Fr. Pigtail catheter. LV to AO pullback pressures were then recorded.The arterial sheath was pulled and a TR Band was applied for hemostasis w/ 18ml air CORONARY ANGIOGRAPHY DOMINANCE: Right Dominant LEFT HEART ASSESSMENT Left Ventricular Ejection Fraction: by LV Gram 45 % Anterior Hypokinesis - Moderate Depressed Left Ventricular systolic function LEFT MAIN: Mild calcification, Mild luminal irregularities less than 30% LEFT ANTERIOR DESCENDING ARTERY: This vessel had 3 previously placed stents along proximal 1 with moderate in-stent stenosis followed by 90% stenosis and mid short stent with mild in-stent stenosis followed by another 90% stenotic lesion. The vessel then continues with moderate luminal irregularities and gives off left to right distal collaterals. CIRCUMFLEX ARTERY: Nondominant vessel with a first obtuse marginal branch noted to have mild to moderate disease of first obtuse marginal branch with high-grade stenosis in the AV groove branch with an 80% stenosis prior to the distal bifurcation. RIGHT CORONARY ARTERY: MID RCA: Subtotally occluded mid right coronary artery noted with an acute marginal vessel and then distal [id number] collaterals noted. COLLATERAL FLOW: Collateral flow from Left to Right COMPLICATIONS No Complications PROCEDURE MEDICATIONS Versed 1 mg IV Fentanyl 50 mcg IV Versed 1 mg IV Oxygen: 2 L/min via nasal cannula Baby Aspirin (81mg) 1 Tabs PO @ 02/07/2025 09:45:49 Heparin given IA 02/07/2025 12:07:37 Verapamil 2.5mg, Ntg 100mcgs, 3000 units of Heparin given IA 02/07/2025 12:07:37 SUMMARY OF HEMODYNAMIC DATA Time AIR REST ECG 09:57:18 AO 128/78 (96) SA 12:22:36 LV 144/8, 19 12:35:47 LV 145/9, 13 12:35:56 LV 133/9, 11 12:36:54 LV 135/8, 11 12:36:57 LVp 151/9, 14 12:37:01 AOp 150/79 (107) 12:37:09 AIR REST 12:49:29 Signed By Az Enrique MD On 02/07/2025 12:52:31 Az Enrique MD
== END 2025-02-07 14:50 | disposition home or self-care (01) ==
PROVIDERS: Referring Provider Internal Medicine Cardiovascular Disease; Visit Provider Internal Medicine Cardiovascular Disease
DX: T82.855A Stenosis of coronary artery stent, initial encounter (principal); E11.9 Type 2 diabetes mellitus without complications; I25.10 Atherosclerotic heart disease of native coronary artery without angina pectoris; I10 Essential (primary) hypertension; E78.5 Hyperlipidemia, unspecified; Z91.148 Patient's other noncompliance with medication regimen for other reason; Z91.199 Patient's noncompliance with other medical treatment and regimen due to unspecified reason
CPT/HCPCS: 93458; 99152; 99153; Q9967; C1769; C1894

== ENCOUNTER → 2025-02-10 | Outpatient (CLI) | payer OTHER, SELFPAY ==
--- NOTE | 2025-02-10 16:01 | ECHOD_ITS ---
Reason For Study Reason For Study: CHEST PAIN Procedure This was a 2D Doppler, Color Flow transthoracic echocardiogram. Exam performed in department. Left Ventricle Normal LV size. The left ventricular ejection fraction is 55 %. Stage 1 diastolic dysfunction. No regional wall motion abnormalities noted. Right Ventricle Normal RV size. Normal systolic function. Atria Normal left atrium. Normal right atrium. Mitral Valve Normal mitral valve. Tricuspid Valve Normal tricuspid valve. Aortic Valve Trisinus/trileaflet aortic valve. Pulmonic Valve Normal pulmonic valve. Great Vessels Normal aortic root. The pulmonary artery is normal size. Inferior vena cava collapse with respiration. Pericardium/Pleural No pericardial effusion. MMode/2D Measurements & Calculations LVIDd: 4.9 cm IVSd: 1.0 cm Ao root diam: 3.7 cm LVIDs: 3.6 cm LVPWd: 0.95 cm RVDd: 2.5 cm FS: 27.2 % LAV(MOD-bp): 37.9 ml LVAd ap4: 30.2 cm2 LVAd ap2: 25.9 cm2 LAV(MOD-bp) Indexed: 18.1 ml/m2 LVLd ap4: 8.7 cm LVLd ap2: 8.5 cm LAV(MOD-sp2): 36.2 ml EDV(MOD-sp4): 84.9 ml EDV(MOD-sp2): 69.0 ml LAV(MOD-sp4): 36.4 ml EDV(sp4-el): 89.5 ml EDV(sp2-el): 67.0 ml LVAs ap4: 19.4 cm2 LVAs ap2: 16.9 cm2 LVLs ap4: 7.3 cm LVLs ap2: 7.1 cm ESV(MOD-sp4): 43.4 ml ESV(MOD-sp2): 34.8 ml ESV(sp4-el): 43.8 ml ESV(sp2-el): 34.1 ml EF(MOD-sp4): 48.9 % EF(MOD-sp2): 49.6 % EF(sp4-el): 51.1 % SV(MOD-sp4): 41.5 ml SV(MOD-sp2): 34.2 ml SV(sp4-el): 45.7 ml SI(MOD-sp4): 19.8 ml/m2 SI(MOD-sp2): 16.3 ml/m2 LA A4 area: 14.6 cm2 LA dimension(2D): 3.3 cm RA A4 area: 11.5 cm2 TAPSE: 2.5 cm Time Measurements MV dec time: 0.16 sec Doppler Measurements & Calculations MV E max yony: 53.5 cm/sec Lat Peak E' Yony: 13.6 cm/sec Med Peak E' Yony: 7.0 cm/sec MV A max yony: 76.4 cm/sec E/E' lat: 3.9 E/E' med: 7.7 MV E/A: 0.70 Ao V2 max: 137.2 cm/sec LV V1 max: 99.2 cm/sec PA V2 max: 117.7 cm/sec Ao max P.5 mmHg LV V1 max P.9 mmHg PA V2 mean: 85.5 cm/sec Ao V2 mean: 93.1 cm/sec LV V1 mean P.5 mmHg Ao mean P.8 mmHg LV V1 mean: 76.0 cm/sec Ao V2 VTI: 20.2 cm LV V1 VTI: 17.1 cm AV (velocity ratio): 0.85 ECHO/Echo Complete Interpretation Summary Normal LV size. The left ventricular ejection fraction is 55 %. Stage 1 diastolic dysfunction. Structurally normal valves. Ordering Physician: Az Enrique Referring Physician: ALEXANDRE PCP Performed By: Bernadette Leal, WILL, RVT
== END | disposition home or self-care (01) ==
PROVIDERS: Referring Provider Internal Medicine Cardiovascular Disease; Visit Provider Internal Medicine Cardiovascular Disease
DX: R07.9 Chest pain, unspecified (principal); I25.10 Atherosclerotic heart disease of native coronary artery without angina pectoris
CPT/HCPCS: 93306

== ENCOUNTER → 2025-02-21 | Outpatient (CLI) | payer OTHER, SELFPAY ==
--- NOTE | 2025-02-21 16:31 | CT_ITS ---
PROCEDURE: CHEST WITHOUT CONTRAST 02/21/2025 REASON FOR EXAM: CHEST PAIN History of abdominal aortic aneurysm. TECHNIQUE: Chest CT without contrast. Coronal and Sagittal reconstruction series were provided. One or more dose reduction techniques were used (e.g., Automated exposure control, adjustment of the mA and/or kV according to patient size, use of iterative reconstruction technique RADIATION DOSE SUMMARY: CTDlvol: 15.97 mGy DLP: 590.76 mGycm COMPARISON: Prior study dated July 08, 2020. FINDINGS: Hardware: None Lymph nodes: No significant lymph nodes are seen. Heart and Vasculature: The heart is nonenlarged. Atherosclerotic calcifications of the thoracic aorta. Thoracic aorta and pulmonary arteries have normal contours; noncontrast technique limits evaluation. Coronary Artery Calcifications: Present Lungs and Airways: No evidence of consolidation. No suspicious nodule seen. Pleura: No pleural effusion. Upper Abdomen: Unremarkable Bones: Degenerative changes of the thoracic spine. CT/Chest without Contrast IMPRESSION: Coronary artery calcification (CAC) is is present No acute abnormality is seen. Reading Location: [place] [id number]
== END | disposition home or self-care (01) ==
PROVIDERS: Referring Provider Thoracic Surgery (Cardiothoracic Vascular Surgery); Visit Provider Thoracic Surgery (Cardiothoracic Vascular Surgery)
DX: R07.9 Chest pain, unspecified (principal)
CPT/HCPCS: 71250

== ENCOUNTER → 2025-02-25 | Outpatient (CLI) | payer OTHER, SELFPAY ==
[2025-02-25 09:19] LABS: Creatinine, Urine (random) 101.00 mg/dL (39.00-259.00)
[2025-02-25 09:47] LABS: Microalbumin,Random Urine 14.5 mg/L (<20 mg/L)
[2025-02-25 10:27] LABS: AST(SGOT) 20 U/L (<=37); Alanine Aminotransfer ALT/SGPT 21 U/L (<=46); Albumin, Serum 4.2 g/dL (3.5-5.0); Alkaline Phosphatase 100 U/L (40-129); Anion Gap 14 (5-15); BUN 21 mg/dL (4-19); BUN/Creat Ratio 24.4 RATIO (10-20); Calcium,Total 9.2 mg/dL (7.6-11.0); Carbon Dioxide 22.8 mmol/L (21.0-32.0); Chloride 102 mmol/L (98-108); Cholesterol 146 mg/dL (<=200); Globulin 2.7 g/dL (2.2-4.2); Glucose 288 mg/dL (70-99); Low Density Lipoprotein Calc. 82 mg/dL; Potassium 4.0 mmol/L (3.3-5.1); Triglycerides 99 mg/dL; Very Low Density Lipoprotein 20 mg/dL (5-40); Vitamin D,25 Hydroxy 36.4 ng/mL (30-100); cholesterol:hdl ratio screen 3.27
--- NOTE | 2025-02-25 14:05 | VDLE_ITS ---
Reason For Study Reason For Study: Pre op RIGHT LEFT GSV prox thigh, 0.57 x 0.56 cm. GSV prox thigh, 0.59 x 0.60 cm. GSV mid thigh, 0.44 x 0.46 cm. GSV mid thigh, 0.57 x 0.62 cm. GSV distal thigh, 0.36 x 0.38 cm. GSV distal thigh, 0.51 x 0.55 cm. GSV knee, 0.41 x 0.41 cm. GSV knee, 0.53 x 0.57 cm. GSV prox calf, 0.25 x 0.27 cm. GSV prox calf, 0.29 x 0.29 cm. Branches noted extending from GSV prox calf. Branches noted extending from GSV prox calf. GSV mid calf, 0.26 x 0.26 cm. GSV mid calf, 0.36 x 0.38 cm. GSV distal calf, 0.18 x 0.18 cm. GSV distal calf, 0.32 x 0.39 cm. SSV prox, 0.17 x 0.18 cm. SSV prox, 0.35 x 0.40 cm. SSV mid, 0.29 x 0.28 cm. SSV mid, 0.35 x 0.39 cm. SSV distal, 0.26 x 0.28 cm. SSV distal, 0.35 x 0.41 cm. GSV and SSV are compressible. GSV and SSV are compressible. Procedure This is a venous duplex using B-mode, color flow and spectral Doppler. Exam performed in department. VL/Saphenous Vein Mapping, Bilat Interpretation Summary The great saphenous veins and small saphenous veins are patent and compressible bilaterally. Branches from the great saphenous veins are noted in the proximal calves bilaterally. Segmental diamete rs of the great and small saphenous veins are as documented above. Ordering Physician: JEWEL LANE Performed By: Saray Guzman RVT
--- NOTE | 2025-02-25 14:05 | CDU_ITS ---
Reason For Study Reason For Study: Carotid bruit, Pre op Rt. Velocities/BP Lt. Velocities/BP Prox CCA 94.9/16.8 cm/sec. Prox CCA 100.3/16.8 cm/sec. Mid CCA 99.2/16.8 cm/sec. Mid CCA 87.2/14.6 cm/sec. Dist CCA 83.9/20.1 cm/sec. Dist CCA 76.2/14.6 cm/sec. Prox ICA 104.7/18.8 cm/sec. Prox ICA 61.9/13.5 cm/sec. Mid ICA 88.8/26.2 cm/sec. Mid ICA 72.9/27.8 cm/sec. Dist ICA 80.7/21.2 cm/sec. Dist ICA 50.6/18.3 cm/sec. Rt. ICA/CCA = 1.06. Lt. ICA/CCA = 0.84. Prox ECA 128.4/11.5 cm/sec. Prox ECA 94.9/13.5 cm/sec. Rt. Vert. 51.3/12.6 cm/sec. Lt. Vert. 48.7/13.5 cm/sec. Right Extracranial There is intimal thickening but no significant atherosclerotic plaque noted in the right common carotid artery. There is intimal thickening but no significant atherosclerotic plaque noted in the right internal carotid artery. There is intimal thickening but no significant atherosclerotic plaque noted in the right external carotid artery. Antegrade flow is noted in the right vertebral artery. Left Extracranial There is intimal thickening but no significant atherosclerotic plaque noted in the left common carotid artery. There is intimal thickening but no significant atherosclerotic plaque noted in the left internal carotid artery. There is intimal thickening but no significant atherosclerotic plaque noted in the left external carotid artery. Antegrade flow is noted in the left vertebral artery. Procedure Carotid Duplex [id number]. This is a Carotid Duplex examination using B-mode, color flow and specral Doppler. Exam performed in department. VL/Carotid Duplex Ultrasound Interpretation Summary No significant atherosclerotic plaque or stenosis noted in the internal carotid arteries bilaterally. Flow within the vertebral arteries is antegrade bilaterally. Ordering Physician: JEWEL LANE Performed By: Saray Guzman RVT
== END | disposition home or self-care (01) ==
DX: E11.65 Type 2 diabetes mellitus with hyperglycemia (principal); R09.89 Other specified symptoms and signs involving the circulatory and respiratory systems; R07.89 Other chest pain; Z01.818 Encounter for other preprocedural examination; I71.21 Aneurysm of the ascending aorta, without rupture
CPT/HCPCS: 36415; 80053; 80061; 82043; 82306; 82570; 84439; 84443; 84681; 93880; 93970

== ENCOUNTER 2025-03-17 14:43 | Inpatient (IN) | payer BC, SELFPAY ==
[2025-03-17] VITALS (15 sets, daily range): BP systolic 157–174; BP diastolic 76–93; PULSE 66–100; RESP 10–23; TEMP 36.6–37.1; O2SAT 96–100; BMI 29.9; BMI 30.4
--- NOTE | 2025-03-17 14:57 | EKG12_ITS ---
Test Reason : CP-REPEAT Blood Pressure : */* mmHG Vent. Rate : 78 BPM Atrial Rate : 78 BPM P-R Int : 172 ms QRS Dur : 110 ms QT Int : 382 ms P-R-T Axes : 54 24 -11 degrees QTcB Int : 435 ms Critical Test Result: STEMI Normal sinus rhythm ST elevation consider anterolateral injury or acute infarct ACUTE MO / STEMI Abnormal ECG Confirmed by ROXANA MURRY, DIANA ([id number]), editorial cartoonist RL HAAS ([id number]) on 03/21/2025 9:03:25 AM Referred By: Karen Galloway Confirmed By: DIANA GALLOWAY MD
--- NOTE | 2025-03-17 15:13 | EKG12_ITS ---
Test Reason : CP Blood Pressure : */* mmHG Vent. Rate : 84 BPM Atrial Rate : 84 BPM P-R Int : 172 ms QRS Dur : 112 ms QT Int : 386 ms P-R-T Axes : 60 21 -25 degrees QTcB Int : 456 ms Normal sinus rhythm Nonspecific ST and T wave abnormality Abnormal ECG Confirmed by ROXANA MURRY, DIANA ([id number]), continuity editor RL HAAS ([id number]) on 03/21/2025 9:03:51 AM Referred By: Karen Galloway Confirmed By: DIANA GALLOWAY MD
[2025-03-17 15:16] LABS: Hematocrit 36.0 % (40-54); Hemoglobin 12.0 g/dL (13.0-16.5); Immature Granulocytes Count 0.030 X10^3/uL (0.0-0.0); Mean Corp Hgb Conc 33.3 g/dL (32-36); Mean Corpuscular Volume 87.0 fL (80-94); Mean Platelet Vol. 9.5 fl (6.2-12.0); NRBC Flagged by Analyzer 0 % (0-5); Platelet Count 375 K/mm3 (150-450); RBC Distribution Width CV 13.7 % (11.6-14.6); RBC Distribution Width SD 43.7 fl (35.1-43.9); Red Blood Count 4.14 M/mm3 (4.6-6.2); White Blood Count 8.5 K/mm3 (4.4-11.0)
[2025-03-17] MEDS: Heparin Injection (Vial) 5,000 UNIT/ML VIAL 4000 UNIT IV (15:16)
[2025-03-17 15:19] LABS: Prothrombin Time (Protime)PT. 13.3 SECONDS (11.7-14.9)
[2025-03-17] MEDS: TICAGRELOR 90 MG TABLET 180 MG PO (15:19)
--- NOTE | 2025-03-17 15:21 | EDS_ITS ---
HPI History of Present Illness Chief Complaint: Chest Pain Narrative Narrative: Patient is a 59-year-old male presenting to the emergency department for chest pain that started at 1 PM today. Patient has a past medical history of CAD. Reports he had a bypass [facility] ago. Reports that he had a follow-up appointment on Friday with his surgeon. Reports that today he developed the chest pain reports that his underneath his left arm up into his shoulder blade. Endorses some shortness of breath associated with it. He has been compliant with his medications. [facility] Medical History (Updated 03/17/25 @ 18:[address] Karen Galloway MD) Erectile dysfunction CAD (coronary artery disease) LILA (obstructive sleep apnea) Neuropathy Obesity (BMI 30.0-34.9) Hyperlipidemia Hypertension Diabetes mellitus, type II Home Medications ?Medication ?Instructions ?Recorded ?Last Taken ?Type aspirin 81 mg tablet,delayed 81 mg PO QDAY 01/19/25 Un known History release (Adult Aspirin Regimen) atorvastatin 40 mg tablet (Lipitor) 40 mg PO QHS #90 t abs 02/07/25 Unknown Rx metoprolol succinate 50 mg 50 mg PO QDAY #90 tabs 01/12 03/07 Unknown Rx tablet,extended release 24 hr (Toprol XL) Allergy/AdvReac Type Severity Reaction Status Date / Time atorvastatin (From Lipitor) AdvReac Severe myalgias Verified 03/17/25 14:45 Family History Mother Diabetes CAD (coronary artery disease) Myocardial infarction CVA (cerebral vascular accident) Father Diabetes Surgical History (Updated 03/17/25 @ 15:38 by Jessica Meeks) Hx of CABG (~03/04/25) CAD S/P percutaneous coronary angioplasty (~05/2012) Social History Smoking Status: Never smoker alcohol intake: current ROS ROS ED ROS Narrative see HPI EXAM Physical Exam Narrative Exam Narrative: Vital signs: Reviewed General: Alert and orientedx3. No acute distress HEENT: Head is normocephalic and atraumatic, sinuses nontender, pupils equal round and reactive. Nares are patent. Oropharynx and throat exams normal. Neck: Supple without lymphadenopathy nontender Cardiovascular: Regular rate and rhythm, no murmurs. No rubs or gallops. Normal S1 and S2 Respiratory: Clear to auscultation bilaterally. No wheezes, rales, rhonchi Chest: Surgical scar healing well Abdominal: Soft and nontender. Normal bowel sounds. No guarding or rebound. Nonsurgical abdomen Extremities: No tenderness. No bruising. Normal range of motion. Normal sensation. Skin: No rash or redness. Neurological: Cranial nerves II through XII are grossly intact. Normal strength and sensation. Normal cerebellar function The rest of the physical exam is unremarkable Const Vital Signs: 03/17/25 14:44 03/17/25 15:09 03/17/25 15:10 Temperature 98.7 F Temperature Source Oral Pulse Rate 87 Respiratory Rate 14 23 H Respiratory Effort Respiratory Pattern Blood Pressure 171/93 H 174/91 H Blood Pressure Mean 119 Blood Pressure Source Blood Pressure Position Blood Pressure Location Pulse Ox 98 100 Oxygen Delivery Method Room Air Room Air 03/17/25 15:10 03/17/25 15:16 03/17/25 15:27 Temperature 98.2 F Temperature Source Pulse Rate 66 Respiratory Rate 22 H Respiratory Effort Normal Respiratory Pattern Normal Blood Pressure 174/91 H Blood Pressure Mean 118 Blood Pressure Source Blood Pressure Position Blood Pressure Location Pulse Ox 98 Oxygen Delivery Method Room Air 03/17/25 17:45 Temperature 97.8 F Temperature Source Temporal Pulse Rate 99 Respiratory Rate 18 Respiratory Effort Respiratory Pattern Blood Pressure 157/91 H Blood Pressure Mean 113 Blood Pressure Source Monitor Blood Pressure Position Semi-Fowlers Blood Pressure Location Left Arm Pulse Ox 98 Oxygen Delivery Method Room Air MDM MDM MDM Narrative Medical decision making narrative: Patient is a 59-year-old male presenting to the emergency department for chest pain. Patient was seen and examined. Vitals are stable. Patient appears uncomfortable. EKG shows ST elevation in V2 and elevation in I and aVL. I did compare this to prior EKGs and it looks different. Spoke to on-call STEMI physician, Dr. Galloway who recommended repeating an EKG once he is in a room. Repeat EKG with worsening findings from above. Concern for anterolateral STEMI. STEMI team called. Patient given aspirin, heparin, Brilinta. Patient taken to the [facility] for intervention. Clinical impression STEMI History & Record Review Discussion w/independent historian: Patient and Significant other Additional record(s) reviewed:: Prior inpatient record Lab Data Attestation: I reviewed the patient's lab results. Labs: Laboratory Results - last 24 hr 03/17/25 14:57 WBC 8.5 RBC 4.14 L Hgb 12.0 L Hct 36.0 L MCV 87.0 MCH 29.0 MCHC 33.3 RDW Std Deviation 43.7 RDW Coeff of Salma 13.7 Plt Count 375 MPV 9.5 Immature Gran % (Auto) 0.400 Neut % (Auto) 78.0 H Lymph % (Auto) 12.0 L [place] % (Auto) 4.8 Eos % (Auto) 3.9 Baso % (Auto) 0.9 Absolute Neuts (auto) 6.7 Absolute Lymphs (auto) 1.02 Nucleated RBC % 0 PT 13.3 INR 1.0 Sodium 137 Potassium 4.2 Chloride 101 Carbon Dioxide 24.8 Anion Gap 12 BUN 15 Creatinine 0.81 Estim Creat Clear Calc 116.15 Est GFR (MDRD) Non-Af 103 BUN/Creatinine Ratio 18.1 Glucose 169 H Calcium 9.2 Troponin T High Sens 34 H Critical Care Time Critical Care Time: Yes Critical care time (excluding procedures): 30-74 minutes, Discussing w/Patient &/or Family/Speeder Frame Tender, Discussing w/Consultants and Arranging Admission or Transfer Discharge Plan Disposition Disposition: Acute Care Hospital [facility] Discharge Date/Time: 03/17/25 15:27
--- NOTE | 2025-03-17 15:23 | CM.ED ---
Social work Reason for referral: STEMI alert SW responded to STEMI alert and introduced self and role at [facility] to patient's , Sharda. Sharda was observed as being very tearful and thanked SW for support, denying further needs. [facility] Software Configuration Engineer Ray responded as well and walked Sharda to the laborer aquatic life waiting room. No further needs identified at this time. Va Monge, LUGGER, TOOL AND MACHINE MAINTAINER
[2025-03-17 15:33] LABS: Troponin T High Sensitivity 34 ng/L (<=22)
[2025-03-17 15:34] LABS: Anion Gap 12 (5-15); BUN 15 mg/dL (4-19); BUN/Creat Ratio 18.1 RATIO (10-20); Calcium,Total 9.2 mg/dL (7.6-11.0); Carbon Dioxide 24.8 mmol/L (21.0-32.0); Chloride 101 mmol/L (98-108); Estimated Creatinine Clearance 116.15 ml/min (50-250); Glucose 169 mg/dL (70-99); Potassium 4.2 mmol/L (3.3-5.1)
--- NOTE | 2025-03-17 15:59 | CHAPLAIN ---
Type of Pastoral Visit ___ Initial Visit ___ Follow-up Visit ___ On-call Visit ___ General Patient Visit ___ Spiritual Assessment ___ Family Conference ___ Bereavement _x__ Rapid Response ___ Code Blue ___ Other (describe below) Pastoral Care Referral From ___ Patient ___ Family ___ Nurse ___ Physician ___ Armor Reconnaissance Vehicle Crewman ___ Venereal Disease Investigator _x__ Other (describe below) Sacrament/Intervention _x__ Active listening ___ Anointing ___ Temple ___ Bereavement ___ Communion ___ Dorota exploration ___ ___ Life review _x__ Prayer ___ Reconciliation ___ Sacrament of Sick _x__ Supportive presence ___ Wedding ___ Other (describe below) Pastoral Comments responded to stemi alert in ED; came to patient's room and found spouse in the hallway with the staff member; decision made by medical team for patient to go to the laborer car barn; escorted the of patient to that waiting room; offered presence, listening ear, beverages as desired; spouse was given time to talk through the day's events and the recent open heart surgery of the patient; spouse asked for a prayer; spouse to make phone calls to family members and stated that she would be fine on her own for now; this multifocal button generator would be available as desired
--- NOTE | 2025-03-17 17:44 | EKG12_ITS ---
Test Reason : cp Blood Pressure : */* mmHG Vent. Rate : 81 BPM Atrial Rate : 81 BPM P-R Int : 172 ms QRS Dur : 106 ms QT Int : 426 ms P-R-T Axes : 61 60 113 degrees QTcB Int : 494 ms Normal sinus rhythm T wave abnormality, consider anterolateral ischemia Abnormal ECG When compared with ECG of 17-Mar-2025 17:44, MANUAL COMPARISON REQUIRED DATA IS UNCONFIRMED Confirmed by Miguel Martinez ([id number]), medical editor JENIFFER PETTY ([id number]) on 03/21/2025 10:13:28 AM Referred By: Karen Galloway Confirmed By: Miguel Martinez
--- NOTE | 2025-03-17 17:53 | PCM.HP.STD ---
HPI - General General Date of Admission: 03/17/25 Date of Service: 03/17/25 Chief Complaint: Chest pain HPI Narrative WALLACE TURK, is a 59 M with coronary artery disease, diabetes who presented [facility] ED 03/17/25 with chest pain pain that radiated to his armpit and shoulder. He underwent a heart cath earlier this month which had significant disease and patient was transferred to [facility] he had a CABG 2 weeks ago. Today in the ED patient had an EKG suspicious for STEMI and patient taken emergently to [facility]. There he was found to have an occluded graft, clot aspirated from graft but reclotted. Patient ultimately stabilized and was transferred to the ICU in stable condition. Initial lab workup showed a normal white count with a hemoglobin of 12, glucose 169 with her otherwise normal BMP and initial troponin of 34. Hospitalist contacted for admission. Patient evaluated bedside. Patient laying flat, reports some nasal congestion from laying flat as he has been sleeping in a chair ever since his surgery. He still has some chest tightness but reports it is no longer radiating to his armpit like it did midday, no shortness of breath, has had some swelling in his left lower extremity but that is postsurgical where they harvested his graft and does not necessarily note any other edema but has had an 8 pound weight gain however has been eating more due to them increasing his insulin so he has needed additional carbs. Denies shortness of breath or cough, no fever, no abdominal pain or nausea, has been urinating frequently in the ICU but denies any burning in urination [facility] Medical History (Updated 03/17/25 @ 18:[address] Karen Galloway MD) CAD (coronary artery disease) Diabetes mellitus, type II Erectile dysfunction Hyperlipidemia Hypertension Neuropathy Obesity (BMI 30.0-34.9) LILA (obstructive sleep apnea) Home Medications ?Medication ?Instructions ?Recorded ?Last Taken ?Type aspirin 81 mg tablet,delayed 81 mg PO QDAY 01/19/25 Unknown History release (Adult Aspirin Regimen) atorvastatin 40 mg tablet (Lipitor) 40 mg PO QHS #90 tabs 02/07/25 Unknown Rx metoprolol succinate 50 mg 50 mg PO QDAY #90 tabs 02/07/25 Unknown Rx tablet,extended release 24 hr (Toprol XL) Allergy/AdvReac Type Severity Reaction Status Date / Time atorvastatin (From Lipitor) AdvReac Severe myalgias Verified 03/17/25 14:45 Family History Mother Diabetes CAD (coronary artery disease) Myocardial infarction CVA (cerebral vascular accident) Father Diabetes Surgical History (Updated 03/17/25 @ 15:38 by Jessica Meeks) CAD S/P percutaneous coronary angioplasty (~05/2012) Hx of CABG (~03/04/25) Social History Smoking Status: Never smoker alcohol intake: current ROS ROS Narrative General: Denies fever/chills HENT: Denies headache, has some nasal congestion, denies sore throat EYES: Denies changes in vision Resp: Denies cough but feels he needs to clear his throat from laying back, denies shortness of breath Cardiac: Has some chest tightness but is no longer radiating GI: Denies abdominal pain, denies changes in bowel, denies nausea/vomiting : Urinating frequently since his cath Extremity: Some swelling in his left lower extremity postsurgical, denies any in his right MSK: Denies weakness Neuro: Denies any numbness/tingling Heme: Denies any bleeding or bruising Skin: Denies rashes Psychiatric: Patient uncomfortable lying flat Vital Signs Vital Signs Vital Signs: 03/17/25 14:44 03/17/25 15:09 03/17/25 15:10 Temperature 98.7 F Temperature Source Oral Pulse Rate 87 Respiratory Rate 14 23 H Respiratory Effort Respiratory Pattern Blood Pressure 171/93 H 174/91 H Blood Pressure Mean 119 Pulse Ox 98 100 Oxygen Delivery Method Room Air Room Air 03/17/25 15:10 03/17/25 15:16 03/17/25 15:27 Temperature 98.2 F Temperature Source Pulse Rate 66 Respiratory Rate 22 H Respiratory Effort Normal Respiratory Pattern Normal Blood Pressure 174/91 H Blood Pressure Mean 118 Pulse Ox 98 Oxygen Delivery Method Room Air Weight Weight: 94.529 kg Body Mass Index (BMI) 29.9 Physical Exam Narrative General: Alert, oriented HEENT: Atraumatic, normocephalic Eyes: Anicteric, normal conjunctiva, extraocular movements grossly intact Neck: Supple Respiratory: Clear to auscultation bilaterally, normal respiratory effort Cardiovascular: Regular rate and rhythm GI: Soft, nontender, nondistended Extremities: Some 1+ pitting edema left lower extremity Musculoskeletal: Moving all extremities Neuro: No overt focal neurological deficits Skin: No rashes appreciated, patient does have postop scar Psych: Cooperative Results Lab / Micro Data 03/17/25 14:57 03/17/25 14:57 Labs: Laboratory Results - last 24 hr 03/17/25 14:57: WBC 8.5, RBC 4.14 L, Hgb 12.0 L, Hct 36.0 L, MCV 87.0, MCH 29.0, MCHC 33.3, RDW Std Deviation 43.7, RDW Coeff of Salma 13.7, Plt Count 375, MPV 9.5, Immature Gran % (Auto) 0.400, Neut % (Auto) 78.0 H, Lymph % (Auto) 12.0 L, [place] % (Auto) 4.8, Eos % (Auto) 3.9, Baso % (Auto) 0.9, Absolute Neuts (auto) 6.7, Absolute Lymphs (auto) 1.02, Nucleated RBC % 0, PT 13.3, INR 1.0, Sodium 137, Potassium 4.2, Chloride 101, Carbon Dioxide 24.8, Anion Gap 12, BUN 15, Creatinine 0.81, Estim Creat Clear Calc 116.15, Est GFR (MDRD) Non-Af 103, BUN/Creatinine Ratio 18.1, Glucose 169 H, Calcium 9.2, Troponin T High Sens 34 H Assessment & Plan Assessment/Plan (1) CAD (coronary artery disease): PLAN: Plan # STEMI with coronary artery disease and recent CABG -Patient had recent CABG at [facility] -Patient presented with EKG changes concerning for STEMI and was taken emergently to [facility] -Did have clotting of one of his grafts, this was aspirated however clot reformed -Patient was stabilized after receiving the aspirin, Brilinta, heparin for his STEMI and was transferred to the ICU in stable condition but sheath remained while awaiting further input from [facility] as far as plan and dispo -Unfortunately there was a miscommunication and patient was not taking aspirin on an outpatient basis for any antiplatelet agents - He will be on aspirin and Brilinta here - Continue metoprolol and statin # Recent echo stage I diastolic dysfunction -Given the above we will repeat echo -Daily weights -I's and O's # Elevated troponin - First troponin 34 with a repeat of 430 - Suspect due to the above - Workup and management as above #Type 2 diabetes mellitus -Glucose checks and sliding scale insulin -glucose in the ED 169 -Will check A1c - Will hold long-acting insulin given patient is n.p.o. until confirmed that patient is able to eat #DVT ppx: SCDs Lita Saleem MD Charges/Coding Visit Charges Inpatient E&M: 09599 Init Hosp L2
--- NOTE | 2025-03-17 17:59 | ECHOCS_ITS ---
Reason For Study Reason For Study: STEMI Procedure This was a 2D Doppler, Color Flow transthoracic echocardiogram. The patient was scanned supine. Contrast injection was performed. Exam performed portable in ICU/CCU. Left Ventricle Normal LV size. The estimated ejection fraction is 35 %. Severe hypokinesis of the apex, septum. Right Ventricle Normal RV size. Normal systolic function. Atria The left and right atria are normal. No doppler evidence for ASD. Mitral Valve There is no stenosis. Trivial mitral valve insufficiency. Tricuspid Valve There is no tricuspid stenosis. No tricuspid valve insufficiency. Aortic Valve Trisinus/trileaflet aortic valve. There is no aortic stenosis. No aortic valve insufficiency. Pulmonic Valve There is no pulmonic valvular stenosis. No pulmonic valve insufficiency. Great Vessels Normal sized aortic root. Pericardium/Pleural No pericardial effusion. Medication Diluted definity 3ml given slow IV push to enhance endocardial definition. MMode/2D Measurements & Calculations LVIDd: 3.5 cm IVSd: 1.1 cm LVOT diam: 2.0 cm LVIDs: 2.4 cm LVPWd: 0.91 cm RVDd: 3.5 cm FS: 30.1 % LVOT area: 3.0 cm2 LAV(MOD-bp): 33.1 ml LVAd ap4: 39.9 cm2 LVAd ap2: 40.6 cm2 LAV(MOD-bp) Indexed: 15.6 ml/m2 LVLd ap4: 8.4 cm LVLd ap2: 8.7 cm LAV(MOD-sp2): 31.7 ml EDV(MOD-sp4): 154.6 ml EDV(MOD-sp2): 151.9 ml LAV(MOD-sp4): 33.4 ml EDV(sp4-el): 160.7 ml EDV(sp2-el): 159.8 ml LVAs ap4: 32.5 cm2 LVAs ap2: 31.5 cm2 LVLs ap4: 8.0 cm LVLs ap2: 8.2 cm ESV(MOD-sp4): 104.7 ml ESV(MOD-sp2): 98.1 ml ESV(sp4-el): 111.4 ml ESV(sp2-el): 102.7 ml EF(MOD-sp4): 32.3 % EF(MOD-sp2): 35.4 % EF(sp4-el): 30.7 % SV(MOD-sp4): 50.0 ml SV(MOD-sp2): 53.8 ml SV(sp4-el): 49.3 ml SI(MOD-sp4): 23.5 ml/m2 SI(MOD-sp2): 25.4 ml/m2 Ao sinus diam: 3.[address] Junction: 2.7 cm LA A4 area: 13.0 cm2 LA dimension(2D): 3.5 cm TAPSE: 1.3 cm RA A4 area: 6.7 cm2 Time Measurements MV dec time: 0.12 sec Doppler Measurements & Calculations MV E max yony: 54.9 cm/sec Lat Peak E' Yony: 9.4 cm/sec Med Peak E' Yony: 7.6 cm/sec MV A max yony: 78.9 cm/sec E/E' lat: 5.8 E/E' med: 7.2 MV E/A: 0.70 MV dec slope: 455.2 cm/sec2 Ao V2 max: 120.8 cm/sec LV V1 max: 89.3 cm/sec Ao max P.8 mmHg LV V1 max P.2 mmHg Ao V2 mean: 87.0 cm/sec LV V1 mean P.1 mmHg Ao mean P.5 mmHg LV V1 mean: 70.2 cm/sec Ao V2 VTI: 25.1 cm LV V1 VTI: 18.2 cm AV (velocity ratio): 0.73 RAVI(I,D): 2.2 cm2 RAVI(V,D): 2.2 cm2 SV(LVOT): 55.4 ml PA V2 max: 78.8 cm/sec ECHO/Echo Complete W/ Contrast Interpretation Summary The estimated ejection fraction is 35 %. Trivial mitral valve insufficiency. Ordering Physician: Lita Saleem Referring Physician: Karen Galloway Performed By: Sarah Jaime RDCS
[2025-03-17] MEDS: Metoprolol(XL)Succ 50 MG Tablet PO (18:27)
--- NOTE | 2025-03-17 18:30 | CON.PCM.CA_ITS ---
Assessment & Plan Assessment/Plan (1) STEMI (ST elevation myocardial infarction): QUALIFIERS: Involved coronary artery: unspecified coronary artery Qualified Code(s): I21.3 - ST elevation (STEMI) myocardial infarction of unspecified site PLAN: Due to occlusion of SVG to severely diseased small diagonal 2 branch. Thrombectomy and PTCA was performed but there was no flow in the vessel at the end of the procedure due to poor outflow resulting in vein graft thrombosis. Recommend aspirin, Brilinta, statin, beta-liliana. Will discuss with CT surgery service at [facility] to see if further intervention of the SVG to OM 2 needs to be considered. HPI Consult Data Date of Consult: 03/17/25 HPI Narrative Reason for Consultation: Lateral STEMI HPI Narrative: WALLACE TURK, is a 59 M who presents with chest pain. Patient is a 59-year-old male who apparently had stents to the LAD in 2011. He had not had major follow- up for his cardiovascular issues for several years and then in January of this year saw Dr. Enrique in the office. At that time he had stopped all his medicines other than aspirin. He underwent coronary angiography and was found to have multivessel coronary artery disease. He was referred for CABG which he had about 2 weeks ago at [facility]. He had MEADE to LAD, SVG to OM 2 and SVG to diagonal 2 done at that time. SVG to PDA was attempted but the vessel was found to be too small and bypass grafting was not done with that vessel. Patient had been recovering well from his CABG. He was still on medicines for postoperative pain. He had however not been taking aspirin or any other antiplatelet medications. He was taking a statin and a beta-liliana according to the . This afternoon he started developing chest pain which was going to his left arm and his left scapula. He was concerned and came to the emergency room and was found to have EKG changes concerning for lateral ST elevation NM. An EKG was repeated at 3:03 PM and this confirmed his lateral STEMI. Patient was brought emergently to the cardiac [employer] and underwent coronary angiography which revealed occluded SVG to diagonal 2. The diagonal 2 which was visualized today and also by review of his angiogram from last month, was very small and severely diseased. Despite multiple attempts at thrombectomy and balloon angioplasty we could not maintain patency of the vein graft. The vein graft kept thrombosing despite adequate anticoagulation. Patient continued to have some degree of chest pain. We explained the situation to the patient and his in detail and explained that the vessel was very small and because of poor outflow the vein graft kept getting occluded. We explained to the patient and family that he will be admitted to the CCU for further management of his STEMI. Patient will be started on dual antiplatelet therapy, his beta-liliana and statin will be continued. We will discuss his angiographic findings with CT surgery service at [facility] and possibly also the interventional cardiology service. [facility] Medical History (Updated 03/17/25 @ 18:[address] Karen Galloway MD) Erectile dysfunction CAD (coronary artery disease) LILA (obstructive sleep apnea) Neuropathy Obesity (BMI 30.0-34.9) Hyperlipidemia Hypertension Diabetes mellitus, type II Home Medications ?Medication ?Instructions ?Recorded ?Last Taken ?Type aspirin 81 mg tablet,delayed 81 mg PO QDAY 01/19/25 Un known History release (Adult Aspirin Regimen) atorvastatin 40 mg tablet (Lipitor) 40 mg PO QHS #90 t abs 02/07/25 Unknown Rx metoprolol succinate 50 mg 50 mg PO QDAY #90 tabs 01/12 03/07 Unknown Rx tablet,extended release 24 hr (Toprol XL) Allergy/AdvReac Type Severity Reaction Status Date / Time atorvastatin (From Lipitor) AdvReac Severe myalgias Verified 03/17/25 14:45 Family History Mother Diabetes CAD (coronary artery disease) Myocardial infarction CVA (cerebral vascular accident) Father Diabetes Surgical History (Updated 03/17/25 @ 15:38 by Jessica Meeks) Hx of CABG (~03/04/25) CAD S/P percutaneous coronary angioplasty (~05/2012) Social History Smoking Status: Never smoker alcohol intake: current Physical Exam Const alert and oriented x3 HEENT normocephalic Eyes no scleral icterus Resp normal respiratory effort Cardio regular rate Skin no rashes or lesions noted Charges/Coding Visit Charges Inpatient E&M: 95743 Init Hosp L2 Objective Data Vital Signs: Vital Signs Temp Pulse Resp BP Pulse Ox O2 Del Method 97.8 F 98 12 161/80 H 97 Room Air 03/17/25 17:45 03/17/25 18:00 03/17/25 18:00 03/17/25 18:00 03/17/25 18:00 03/17/25 18:00 Oxygen Delivery Method Room Air Weight: 212 lb 1.355 oz Body Mass Index (BMI) 30.4 Intake & Output: Intake and Output for Last 24 Hours 03/15/25 03/16/25 03/17/25 23:59 23:59 23:59 Output Total 650 / 650 Balance -650 / -650 Lab / Micro Data 03/17/25 14:57 03/17/25 14:57 Labs: Laboratory Results - last 24 hr 03/17/25 14:57: WBC 8.5, RBC 4.14 L, Hgb 12.0 L, Hct 36.0 L, MCV 87.0, MCH 29.0, MCHC 33.3, RDW Std Deviation 43.7, RDW Coeff of Salma 13.7, Plt Count 375, MPV 9.5, Immature Gran % (Auto) 0.400, Neut % (Auto) 78.0 H, Lymph % (Auto) 12.0 L, [place] % (Auto) 4.8, Eos % (Auto) 3.9, Baso % (Auto) 0.9, Absolute Neuts (auto) 6.7, Absolute Lymphs (auto) 1.02, Nucleated RBC % 0, PT 13.3, INR 1.0, Sodium 137, Potassium 4.2, Chloride 101, Carbon Dioxide 24.8, Anion Gap 12, BUN 15, Creatinine 0.81, Estim Creat Clear Calc 116.15, Est GFR (MDRD) Non-Af 103, BUN/Creatinine Ratio 18.1, Glucose 169 H, Calcium 9.2, Troponin T High Sens 34 H Cardiology Labs/Tests 03/17/25 14:57: WBC 8.5, RBC 4.14 L, Hgb 12.0 L, Hct 36.0 L, MCV 87.0, MCH 29.0, MCHC 33.3, Plt Count 375, MPV 9.5, Immature Gran % (Auto) 0.400, Neut % (Auto) 78.0 H, Lymph % (Auto) 12.0 L, [place] % (Auto) 4.8, Eos % (Auto) 3.9, Baso % (Auto) 0.9, Absolute Neuts (auto) 6.7, Nucleated RBC % 0, PT 13.3, INR 1.0, Sodium 137, Potassium 4.2, Chloride 101, Carbon Dioxide 24.8, Anion Gap 12, BUN 15, Creatinine 0.81, Est GFR (MDRD) Non-Af 103, BUN/Creatinine Ratio 18.1, G lucose 169 H, Calcium 9.2 Rhythm: EKG: ECHO: Stress Test: Cardiac Cath: PCI: CT Surgery: Holter monitor: EPS: PPM: CXR: Chest CT Scan: ELISEO Risk Score for UA/STEMI Assesmment (YES = 1) Risk Stratification Applicable: No
[2025-03-17 19:03] LABS: Troponin T High Sens 2 HR 430 ng/L (<=22)
[2025-03-17 20:49] LABS: Hematocrit 33.9 % (40-54); Hemoglobin 11.4 g/dL (13.0-16.5); Immature Granulocytes Count 0.040 X10^3/uL (0.0-0.0); Mean Corp Hgb Conc 33.6 g/dL (32-36); Mean Corpuscular Volume 86.3 fL (80-94); Mean Platelet Vol. 9.5 fl (6.2-12.0); NRBC Flagged by Analyzer 0 % (0-5); Platelet Count 382 K/mm3 (150-450); RBC Distribution Width CV 13.7 % (11.6-14.6); RBC Distribution Width SD 42.8 fl (35.1-43.9); Red Blood Count 3.93 M/mm3 (4.6-6.2); White Blood Count 7.7 K/mm3 (4.4-11.0)
[2025-03-17] MEDS: HEPARIN/D5w 25,000 UNITS 25,000 UNITS/250 ML IV.SOLN. 11.5 UNITS CONT INF (20:50)
[2025-03-17] MEDS: 0.9% Saline Lock 10 ML Syringe IV (20:54)
[2025-03-17 20:55] LABS: Prothrombin Time (Protime)PT. 13.5 SECONDS (11.7-14.9)
[2025-03-17 20:56] LABS: Partial Thromboplast Time 25.2 Seconds (24.1-36.2)
[2025-03-17 21:04] LABS: Troponin T High Sens 4 HR 1279 ng/L (<=22)
--- OUTSIDE RECORDS SUMMARY | 2025-03-17 21:29 | XMS RPT_ITS | CCD ---
Author Organization [facility] Care Team Providers Care Clinical Biochemist Name Role Phone Oswald Quarles MD Primary Care Provider [phone] [facility], Sage Unavailable [facility] Attending Unavailable [facility] Primary Care Unavailable [facility] Admitting Unavailable Oswald Quarles MD Primary Care Provider [facility], Keti Unavailable OSWALD QUARLES MD Referring Unavailable OSWALD QUARLES MD Consulting Unavailable ANABELA KNOX Attending Unavailable ANABELA KNOX Primary Care Unavailable ANABELA KNOX Admitting Unavailable PROVIDER, UNKNOWN Consulting Unavailable OSWALD QUARLES MD Consulting Unavailable FRANSISCO GA DPHemal Attending Unavailable FRANSISCO GA DPM Primary Care Unavailable FRANSISCO GA DPM Admitting Unavailable PROVIDER, UNKNOWN Consulting Unavailable VERONICA CHENG Referring Unavailable OSWALD QUARLES Primary Care Unavailable OSWALD QUARLES Attending Unavailable OSWALD QUARLES Primary Care Unavailable LILIANA RIOS Referring Unavailable OSWALD QUARLES Primary Care Unavailable ASHOK MARCELINO Referring Unavailab OSWALD Tillman Primary Care Unavailable VERONICA CHENG Referring Unavailable OSWALD QUARLES Primary Care Unavailable VERONICA CHENG Referring Unavailable OSWALD QUARLES Primary Care Unavailable ASHOK MARCELINO Attending Unavailab OSWALD Tillman Primary Care Unavailable ASHOK MARCELINO Attending Unavailab OSWALD Tillman Primary Care Unavailable OSWALD QUARLES Attending Unavailable OSWALD QUARLES Primary Care Unavailable OSWALD QUARLES Referring Unavailable OSWALD QUARLES Primary Care Unavailable ADWOA STARK Attending Unavailable OSWALD QUARLES Referring Unavailable OSWALD QUARLES Primary Care Unavailable ADWOA STARK Referring Unavailable ROBINA, OSWALD A Primary Care Unavailable SKYLAR, VERONICA E Attending Unavailable SKYLAR, VERONICA E Referring Unavailable ROBINA, OSWALD A Primary Care Unavailable SKYLAR, VERONICA E Referring Unavailable ROBINA, OSWALD A Primary Care Unavailable SKYLAR, VERONICA E Referring Unavailable ROBINA, OSWALD A Primary Care Unavailable Robina MURRY, Dr. Akers Primary Care Provider Robina MURRY, Dr. Akers Referring Provider Iva MURRY, Dr. Bernardo Attending Provider Iva MURRY, Dr. Bernardo Referring Provider Care Physician, No Primary Primary Care Provider Unavailable Unavailable Primary Care Provider UnavailJewel Nguyen MD Unavailable JEWEL LANE MD Attending Provider JEWEL LANE MD Referring Provider [phone] Attending Provider JEWEL L[address] Referring Provider Care Physician, No Primary Primary Care Unava ilable KIRLAY, FRANCISKA Referring Unavailable KIRLAY, FRANCISKA Attending Unavailable Care Physician, No Primary Primary Care Unava ilable KIRLAY, FRANCISKA Referring Unavailable KIRLAY, FRANCISKA Attending Unavailable Iva, [place] Referring Unavailable Care Physician, No Primary Primary Care Unava ilable Iva, [place] Attending Unavailable Care Physician, No Primary Primary Care Unava ilable Iva, Az Referring Unavailable Iva, [place] Attending Unavailable Care Physician, No Primary Primary Care Unava ilable Iva, [place] Attending Unavailable Iva, [place] Attending Unavailable Robina, Oswald Referring Unavailable Robina, Oswald Primary Care Unavailable Iva, Az Attending Unavailable Robina, Oswald Primary Care Unavailable Iva, [place] Referring Unavailable HOSSEIN ROMERO Attending Unavailable JEWEL LANE Attending Unavailable JEWEL LANE Referring Unavailable RANJANA CHRISTIANSON Referring Unavailable JEWEL LANE Attending Unavailable JEWEL LANE Attending Unavailable AMARAEIRODGER, MARTELL Consulting Unavailable JEWEL LANE Admitting Unavailable RICHARD MARQUEZ Attending Unavailable JEWEL LANE Referring Unavailable JEWEL LANE Attending Unavailable JEWEL LANE Admitting Unavailable Javi MURRY, Dr. Kirby Chavez Attending Provider Javi MURRY, Dr. Kirby Chavez Referring Provider Dawn MURRY, Dr. Piper Emergency Provider Unavailab betzaida Galloway MD, Dr. Jones Admit Provider Laverne MURRY, Dr. Jones Attending Provider Laverne MURRY, Dr. Jones Referring Provider Laverne MURRY, Dr. Jones Other Provider [phone] Allergies Allergy Classification Reported Allergen(s) Allergy Type Date of Onset Reaction(s) Facility (20 sources) atorvastatin; Translations: [ATORVASTATIN CALCIUM] Drug Allergy 5 Other: See Comments, Other [facility] Work Phone: (20 sources) [place] extract; Translations: [CUCUMBER] Drug Allergy 4 Itching [facility] Work Phone: (20 sources) watermelon preparation; Translations: [WATERMELON] Drug Allergy 4 Swelling [facility] Work Phone: (6 sources) atorvastatin Drug Allergy 5 myalgias [facility] (1 source) atorvastatin Drug Allergy 5 [facility] Repository Medications Current Medications Medication Drug Class(es) Dates Sig (Normalized) Sig (Original) acetaminophen 500 mg oral tablet (7 sources) Start: 03-08-2025 End: 03-18-2025 take 2 tablets by mouth every eight hours acetaminophen (Tylenol) 500 MG tablet Take 2 tablets (1,000 mg) by mouth every 8 hours for 10 days. 03/08/2025 03/18/2025 Active Start: 03-04-2025 End: 03-08-2025 take 1 tablet by mouth every eight hours 1,000 mg, Oral, Every 8 hours, First dose on Fri03/04/25 at 1230, [facility] On Unit Start: 03-04-2025 End: 03-04-2025 take 1000 mg by mouth once, then take 4000 mg by mouth every twenty-four hours 1,000 mg, Oral, Once, On Fri03/04/25 at 0545, For 1 dose, Preprocedure, Maximum dose of acetaminophen is 4000 mg from all sources in 24 hours. Do not administer if patient has taken tylenol atorvastatin 40 mg oral tablet (20 sources) HMG-CoA Reductase Inhibitor Start: 03-08-2025 take 2 tablets by mouth once daily atorvastatin (Lipitor) 40 MG tablet Take 2 tablets (80 mg) by mouth daily. 03/08/2025 Active Start: 03-05-2025 End: 03-08-2025 take 80 mg by mouth once daily 80 mg, Oral, Daily, Fir st dose on 03/05/25 at 0900 Start: 02-07-2025 End: 03-08-2025 take 1 tablet by mouth at bedtime Atorvastatin (Lipitor) 40 mg tablet Active 40 mg PO AT BEDTIME 90 2 February 07, 2025 2:58pm Blood Glucose Monitoring Sup pl (True Metrix Meter) w/Device kit (17 sources) Start: 02-24-2025 End: 02-24-2026 Blood Glucose Monitoring Sup [address] (True Metrix Meter) w/Device kit Indications: Type 2 diabetes mellitus with hyperglycemia, without long-term current use of insulin (HCC) 1 each 4 times daily. For daily blood sugar monitoring 4 times daily for Continuous Glucose Monitor failure 1 kit 02/24/2025 02/24/2026 Suspended Start: 02-24-2025 End: 02-24-[address] (True Metrix Meter) w/Device kit Indications: Type 2 diabetes mellitus with hyperglycemia, without long-term current use of insulin (HCC) 1 each 4 times daily. For daily blood sugar monitoring 4 times daily for Continuous Glucose Monitor failure 1 kit 02/24/2025 02/24/2026 Active Continuous Glucose Sensor (Dexcom G7 Sensor) misc (20 sources) Start: 03-08-2025 Continuous Glu cose Sensor (Dexcom G7 Sensor) misc Replace with a new sensor every 10 days. 9 each 3 03/08/2025 12:04 PM EDT 03/08/2025 Active Start: 02-24-2025 Continuous Glu cose Sensor (Dexcom G7 Sensor) misc Indications: Type 2 diabetes mellitus with hyperglycemia, without long-term current use of insulin (HCC) Replace with a new sensor every 10 days. 9 each 3 02/24/2025 Suspended Start: 02-24-2025 Continuous Glu cose Sensor (Dexcom G7 Sensor[place] [facility] [place]: Type 2 diabetes mellitus with hyperglycemia, without long-term current use of insulin (HCC) Replace with a new sensor every 10 days. 9 each 3 02/24/2025 Active furosemide 40 mg oral tablet (9 sources) Loop Diuretic Start: 03-08-2025 End: 03-16-2025 take 1 tablet by mouth once daily furosemide (Lasix) 40 MG tablet Take 1 tablet (40 mg) by mouth daily for 7 days. 7 tablet 03/08/2025 12:04 PM EDT 03/09/2025 03/16/2025 Active Start: 03-06-2025 End: 03-08-2025 40 mg, IntraVENous, Daily, F irst dose on 03/06/25 at 0930 Start: 03-05-2025 20 mg, IntraVE Nous, Once, On 03/05/25 at 0845, For 1 dose 3 ml insulin glargine 100 unt/ml pen injector (20 sources) Insulin Analog Start: 03-08-2025 inject 18 [IU] by subcutaneous injection once daily insulin glargine (Lantus) 100 UNIT/ML pen Indications: Type 2 diabetes mellitus with hyperglycemia, without long-term current use of insulin (HCC) Inject 18 Units under the skin Nightly. 03/08/2025 Active Start: 03-06-2025 End: 03-08-2025 inject 18 [IU] by subcutaneous injection once daily in the morning 18 Units, SubCUTAneous, Every morning, First dose on 03/06/25 at 0900 Start: 03-05-2025 18 Units, SubC UTAneous, Once, On 03/05/25 at 1045, For 1 dose, Please discontinue insulin drip one hour after giving Lantus. Thank you Start: 03-03-2025 End: 03-03-2026 inject 12 [IU] by subcutaneous injection once daily insulin glargine (Lantus) 100 UNIT/ML pen Indications: Type 2 diabetes mellitus with hyperglycemia, without long-term current use of insulin (HCC) Inject 12 Units under the skin Nightly. 10.8 mL 1 03/03/2025 03/08/2025 Discontinued Start: 02-24-2025 End: 02-24-2026 inject 10 [IU] by subcutaneous injection once daily insulin glargine (Lantus) 100 UNIT/ML pen Indications: Type 2 diabetes mellitus with hyperglycemia, without long-term current use of insulin (HCC) Inject 10 Units under the skin Nightly. 9 mL 3 02/24/2025 03/03/2025 Discontinued (Reorder) 3 ml insulin lispro 100 unt/ml pen injector (20 sources) Insulin Analog Start: 03-08-2025 inject 8 [IU] by subcutaneous injection three times daily before mealtime insulin lispro (HumaLOG) 100 UNIT/ML pen injection Indications: Type 2 diabetes mellitus with hyperglycemia, without long-term current use of insulin (HCC) Inject 8 Units under the skin 3 times daily (before meals). 03/08/2025 Active Start: 03-05-2025 End: 03-08-2025 inject 8 [IU] by subcutaneous injection three times daily at mealtime 8 Units, SubCUTAneous, 3 times daily with meals, First dose (after last modification) on Fri03/08/25 at 0800, Hold if not eating Start: 03-05-2025 End: 03-07-2025 inject 6 [IU] by subcutaneous injection three times daily at mealtime 6 Units, SubCUTAneous, 3 times daily with meals, First dose on Fri03/05/25 at 1200 Start: 03-03-2025 End: 03-03-2026 inject 4 [IU] by subcutaneous injection three times daily before mealtime insulin lispro (HumaLOG) 100 UNIT/ML pen injection Indications: Type 2 diabetes mellitus with hyperglycemia, without long-term current use of insulin (HCC) Inject 4 Units under the skin 3 times daily (before meals). 10.8 mL 1 03/03/2025 03/08/2025 Discontinued Start: 02-24-2025 End: 02-24-2026 inject 3 [IU] by subcutaneous injection three times daily before mealtime insulin lispro (HumaLOG) 100 UNIT/ML pen injection Indications: Type 2 diabetes mellitus with hyperglycemia, without long-term current use of insulin (HCC) Inject 3 Units under the skin 3 times daily (before meals). 8.1 mL 3 02/24/2025 03/03/2025 Discontinued (Reorder) isopropyl alcohol 0.7 ml/ml medicated pad (17 sources) Start: 02-24-2025 Alcohol Swabs pads Indications: Type 2 diabetes mellitus with hyperglycemia, without long-term current use of insulin (HCC) For daily blood sugar monitoring 4 times daily for Continuous Glucose Monitor failure 400 each 3 02/24/2025 Active methocarbamol 500 mg oral tablet (5 sources) Muscle Relaxant Start: 03-08-2025 End: 03-18-2025 take 2 tablets by mouth every eight hours methocarbamol (Robaxin) 500 MG tablet Take 2 tablets (1,000 mg) by mouth every 8 hours for 10 days. 60 tablet 03/08/2025 12:04 PM EDT 03/08/2025 03/18/2025 Active Start: 03-05-2025 End: 03-08-2025 take 1 dose by mouth three times daily 1,000 mg, Oral, Every 8 hours scheduled (3 times per day), First dose on 03/05/25 at 1400 NON FORMULARY (16 sources) NON FORMULARY ST OPPED TAKING PER DR LANE BEFORE SURGERY Lileonidas peralta, berberine, salon cinnamon, multivitamin- Alive, vitamin d3 w/ k2, Suspended NON FORMULARY ST OPPED TAKING PER DR LANE BEFORE SURGERY Lions kathryn, berberine, salon cinnamon, multivitamin- Alive, vitamin d3 w/ k2, Active oxyCODONE hydrochloride 5 mg oral tablet (6 sources) Opioid Agonist Start: 03-16-2025 End: 03-23-2025 oxyCODONE (Roxicodone) 5 MG immediate release tablet Indications: Acute post-operative pain Take 1 tablet (5 mg) by mouth every 8 hours for 7 days. Do not start before March 16, 2025. 21 tablet 03/16/2025 03/23/2025 Active Start: 03-08-2025 End: 03-15-2025 take 1 tablet by mouth every six hours as needed for pain oxyCODONE (Roxicodone) 5 MG immediate release tablet Indications: Acute post-operative pain Take 1 tablet (5 mg) by mouth every 6 hours as needed for severe pain (7-10) (Acute post surgical pain) for up to 7 days. 28 tablet 03/08/2025 12:04 PM EDT 03/08/2025 03/15/2025 Discontinued (Therapy completed) Start: 03-05-2025 End: 03-08-2025 take 1 tablet by mouth every four hours as needed for pain oxyCODONE (Roxicodone) immediate release tablet 5 mg perflutren lipid microspheres 1.3 mL in NaCl (PF) 0.9% 10 mL injection (DEFINITY) (11 sources) Start: 12-17-2022 End: 03-17-2024 perflutren lipid microspheres 1.3 mL in NaCl (PF) 0.9% 10 mL injection (DEFINITY) microencapsulated potassium chloride 20 meq extended release oral tablet (7 sources) Start: 03-08-2025 End: 03-15-2025 take 1 tablet by mouth once daily potassium chloride CR (Klor-Con M20) 20 MEQ ER tablet Take 1 tablet (20 mEq) by mouth daily for 7 days. Do not crush or chew. 7 tablet 03/08/2025 12:04 PM EDT 03/08/2025 03/15/2025 Active Start: 03-05-2025 End: 03-08-2025 20 mEq, Oral, PRN, Hypokalem ia, Starting on 03/05/25 at 0000, Recovery & On Unit, If patient is intubated or not tolerating PO use PRN IV replacement protocol Potassium level Dose LESS than 3.0 = Give 20 mEq x 3 doses 3.0-3.6 = Give 20 mEq x 2 doses Recheck potassium level 2 hour after replacement given, place order for lab under [place] If potassium level LESS than 3 after 1st replacement: Call surgeon. Do not crush or break. Do not crush or chew. Start: 03-04-2025 End: 03-08-2025 potassium chloride IVPB 20 m Eq predniSONE 10 mg oral tablet (1 source) Start: 10-01-2021 End: 10-13-2021 predniSONE (DELTASONE) 10 mg tablet Indications: Allergic contact dermatitis due to plants, except food Take 6 tabs for 3 days, then 4 tabs for 3 days, then 2 tabs for 3 days then 1 tab for 3 days with food. 39 tablet 0 10/01/2021 10/13/2021 Active Comment on above: Take 6 tabs for 3 da ys, then 4 tabs for 3 days, then 2 tabs for 3 days then 1 tab for 3 days with food. Completed/Discontinued Medications Medication Drug Class(es) Dates Sig (Normalized) Sig (Original) acetaminophen 325 mg / oxyCODONE hydrochloride 5 mg oral tablet (6 sources) Opioid Agonist Start: 11-29-2015 End: 11-29-2015 Oxycodone-Acetaminoph en 1 TABLET tablet Discontinued 1 - 2 {tbl} PO EVERY 6 HOURS NEEDED as needed for Pain 60 November 29, 2015 12:00am November 29, 2015 12:31pm 20 ml albumin human, snf 250 mg/ml injection (4 sources) Human Serum Albumin Start: 03-04-2025 End: 03-08-2025 50 g, IntraVENous, at 200 mL/hr, Once, On Fri03/04/25 at 1630, For 1 dose, Infusion rate depends on indication and clinical situation. In emergencies, may administer as rapidly as necessary to improve clinical condition. After initial volume replacement: 25%: Do not exceed 1 mL/minute (60 mL/hr) in patients with normal plasma volume; 2 to 3 mL/minute (120 to 180 mL/hr) in patients with hypoproteinemia [id number] 200 actuat albuterol 0.09 mg/actuat metered dose inhaler (12 sources) beta2-Adrenergi c Agonist Start: 07-09-2020 End: 08-14-2022 take 4-8 puff(s) by mouth every four hours as needed for dyspnea albuterol HFA (PROVENTIL HFA, VENTOLIN HFA) 90 mcg/actuation inhaler INHALE 4 TO 8 PUFFS BY MOUTH EVERY 4 HOURS NEEDED FOR DYSPNEA WHEEZING 0 07/09/2020 08/14/2022 Discontinued Start: 07-09-2020 End: 01-03-2025 Albuterol Sulfate 1 INHALER inhaler Discontinued 4 - 8 NMA INHALATION EVERY 4 HOURS NEEDED as needed for Dyspnea, wheezing 1 0 July 09, 2020 1:00am January 03, 2025 11:26am Pneumonia due to COVID-19 virus COVID-19 Other viral pneumonia Comment on above: INHALE 4 TO 8 PUFFS BY MOUTH EVERY 4 HOURS NEEDED FOR DYSPNEA WHEEZING albuterol 0.833 mg/ml / ipratropium bromide 0.167 mg/ml inhalation solution (2 sources) Anticholinergic, beta2-Adrenergic Agonist Start: 03-04-2025 End: 03-08-2025 ALPRAZolam 0.25 mg disintegrating oral tablet (4 sources) Benzodiazepine Start: 03-04-2025 End: 03-04-2025 0.25 mg, Oral, PRN, anxiety, Starting on Fri03/04/25 at 0535, For 1 dose, Preprocedure Start: 02-28-2025 End: 02-28-2025 take 0.25 mg by mouth once as needed for anxiety 0.25 mg, Oral, Once PRN, anxiety, Starting on Fri02/28/25 at 0532, For 1 dose, Preprocedure, Please do not administer prior to obtaining consent and/or history and physical. arginine 500 mg oral capsule (6 sources) Start: 07-08-2020 End: 01-03-2025 take 1 capsule by mouth once daily Arginine (L-Arginine) 500 MG capsule Discontinued 500 mg PO DAILY July 08, 2020 1:00am January 03, 2025 11:26am aspirin 81 mg chewable tablet (20 sources) Platelet Aggregation Inhibitor, Nonsteroidal Anti-inflammatory Drug Start: 03-05-2025 End: 03-08-2025 take 81 mg by mouth once daily 81 mg, Oral, Daily, First dose on Fri03/05/25 at 0900 Start: 01-19-2025 take 1 tablet by costa th once daily Aspirin (Adult Aspirin Regimen) 81 mg tablet,delayed release (DR/EC) Active 81 mg PO daily January 19, 2025 12:00am Start: 11-25-2019 take 0.5 tablet by m outh once daily at mealtime aspirin, enteric coated (ASPIRIN, ENTERIC COATED) 325 mg EC tablet Take 0.5 tablets by mouth once daily. Take with food. 0 11/25/2019 Active Start: 11-28-2015 End: 01-19-2025 take 1 tablet by mouth once daily Aspirin 325 MG tablet Discontinued 325 mg PO DAILY@0800 November 28, 2015 12:00am January 19, 2025 4:11pm Comment on above: Take 0.5 tablets by mouth once daily. Take with food. calcium chloride 0.0014 meq/ml / potassium chloride 0.004 meq/ml / sodium chloride 0.103 meq/ml / sodium lactate 0.028 meq/ml injectable solution (4 sources) Start: 03-04-20 End: 03-08-20 500 mL, IntraVENous, at 500 mL/hr, Administer over 1 Hours, Once, On Fri03/04/25 at 1630, For 1 dose 100 ml calcium gluconate 20 mg/ml injection (2 sources) Start: 03-04-20 End: 03-08-20 2,000 mg, IntraVENous, at 50 mL/hr, Administer over 2 Hours, PRN, ionized calcium less than 4.3, Starting on Fri03/04/25 at 1218, Recovery & On Unit, Give 2000 mg for ionized calcium less than 4.3 premix bag ceFAZolin (Ancef) 2,000 mg in sodium chloride 0.9 % 100 mL IVPB (2 sources) Start: 03-04-20 End: 03-06-20 take 2000 mg intravenously every eight hours 2,000 mg, IntraVENous, at 200 mL/hr, Administer over 30 Minutes, Every 8 hours, First dose on Fri03/04/25 at 1900, For 5 doses, Recovery & On Unit, Mini-Bag Plus bag, Suspected Indication (Select all that apply): Surgical Prophylaxis Chlorhexidine (20 sources) Start: 03-05-20 End: 03-08-20 apply 1 dose topically once daily Topical, Daily, First dose on Fri03/05/25 at 1400, Recovery & On Unit Start: 03-04-2025 End: 03-08-2025 take 15 mL by mouth twice daily 15 mL, Mouth/Throat, 2 times daily, First dose on Fri03/04/25 at 1230, For 7 days, Recovery & On Unit, Rinse and spit. Do not swallow. Start: 02-28-2025 End: 02-28-2025 15 mL, Mouth/Throat, Once, O n 02/28/25 at 0545, For 1 dose, Preprocedure, Rinse and spit. Do not swallow. Start: 02-21-2025 End: 03-08-2025 chlorhexidine (Peridex) 0.12 % solution Use 15 mL in the mouth or throat Once for 1 dose. Swish for 30 seconds and spit out the night before surgery. Do not swallow. 15 mL 02/21/2025 03/08/2025 Discontinued (Stop taking at discharge) cholecalciferol 9.52 unt/ml / glucose 357 mg/ml oral gel (2 sources) Vitamin D Start: 03-04-2025 End: 03-08-2025 dexamethasone 6 mg oral tablet (6 sources) Corticosteroid Start: 07-09-2020 End: 07-17-2020 take 1 tablet by mouth once daily Dexamethasone 6 MG tablet Discontinued 6 mg PO DAILY 8 8 0 July 09, 2020 1:00am July 16, 2020 1:00am July 17, 2020 1:02am Pneumonia due to COVID-19 virus COVID-19 Other viral pneumonia 100 ml dexmedetomidine 0.004 mg/ml injection (2 sources) Central alpha-2 Adrenergic Agonist Start: 03-04-2025 End: 03-05-2025 0.1-1.5 mcg/kg/hr 88.9 kg (2.2225-33.3375 mL/hr, rounded to 2.22-33.34 mL/hr), IntraVENous, Continuous, Starting on Fri03/04/25 at 1445, If Titrate Infusion? is No: Disregard instructions below. If Titrate infusion? is Yes: Titrate in increments of 0.2 mcg/kg/hr no more frequently than every 30 minutes to goal of therapy. If after titration rate change patient exhibits adverse hemodynamic response, next titration rate change may be adjusted by one-half of the previous rate change. If patient fails sedation interruption, resume dexmedetomidine infusion at 50% of previous rate., Titrate Infusion? Yes, Initial Infusion Dose: 0.2 mcg/kg/hr, Goal of Therapy: RASS 0 to -1, Contact Provider if: New onset HR less than 50 bpm, New onset SBP less than 90 mmHg, Patient is receiving maximum dose and is not achieving the goal of therapy, If held outside of ordered parameters contact provider for further direction docusate sodium 50 mg / sennosides, snf 8.6 mg oral tablet (2 sources) Start: 03-04-2025 End: 03-08-2025 take 2 tablets by mouth once daily for constipation 2 tablet, Oral, Nightly, First dose on Fri03/04/25 at 2100, Recovery & On Unit, Bowel Regimen - for prevention of constipation. 0.5 ml dulaglutide 3 mg/ml auto-injector (6 sources) GLP-1 Receptor Agonist Start: 07-08-2020 End: 01-03-2025 Dulaglutide 1.5 MG/0.5 ML pen injector Discontinued 1 INJECTABLE SQ EVERY WEEK July 08, 2020 1:00am January 03, 2025 11:26am dulaglutide (TRULICITY) 3 mg/0.5 mL pen injector (2 sources) Start: 07-30-2021 End: 01-30-2022 inject 3 mg by subcutaneous injection every week dulaglutide (TRULICITY) 3 mg/0.5 mL pen injector Inject 3 mg subcutaneously one time a week. 12 Each 1 07/30/2021 01/30/2022 Discontinued (Changing Therapy/Dosage Form) Start: 07-30-2021 inject 3 mg by subcu taneous injection every week dulaglutide (TRULICITY) 3 mg/0.5 mL pen injector Inject 3 mg subcutaneously one time a week. 12 Each 07/30/2021 Active Comment on above: Inject 3 mg subcutan eously one time a week. dulaglutide (TRULICITY) 4.5 mg/0.5 mL pen injector (5 sources) Start: 022 End: 023 inject 4.5 mg by subcutaneous injection every week dulaglutide (TRULICITY) 4.5 mg/0.5 mL pen injector Inject 4.5 mg subcutaneously one time a week. 12 Each 01/30/2022 08/14/2022 Discontinued (Discontinued by Patient) Start: 01-30-2022 inject 4.5 mg by sub cutaneous injection every week dulaglutide (TRULICITY) 4.5 mg/0.5 mL pen injector Inject 4.5 mg subcutaneously one time a week. 12 Each 01/30/2022 Active Comment on above: Inject 4.5 mg subcut aneously one time a week. empagliflozin 25 mg oral tablet (2 sources) Sodium-Glucose Cotransporter 2 Inhibitor Start: 2023 take 1 tablet by mouth once daily at breakfast empagliflozin (JARDIANCE) 25 mg tablet Take 1 tablet by mouth daily with breakfast. 30 tablet 5 10/17/2023 Active Comment on above: Take 1 tablet by costa th daily with breakfast. 0.4 ml enoxaparin sodium 100 mg/ml prefilled syringe (2 sources) Low Molecular Weight Heparin Start: 2024 End: 2024 inject 40 mg by subcutaneous injection every twenty-four hours 40 mg, SubCUTAneous, Every 24 hours, First dose on 03/06/25 at 0900, Indication of Use: Prophylaxis-DVT/PE ezetimibe 10 mg oral tablet (4 sources) Dietary Cholesterol Absorption Inhibitor Start: 2023 take 1 tablet by mouth once daily ezetimibe (ZETIA) 10 mg tablet Take 1 tablet by mouth once daily. 90 tablet 1 09/11/2023 Active Comment on above: Take 1 tablet by costa once daily. 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 Erythrocyte distribution width (RBC) [Ratio] 43.7 fl 35.1-43.9 [facility] Glomerular filtration rate ( GFR) estimation/1.73 sq m using serum, plasma, or whole bOrdered By: Veronique Seymour on 03-17-2025 GFR/1.73 sq M.predicted among non-blacks MDRD (S/P/Bld) [Vol rate/Area] 103 mL/min/{1.73_m2} >60 [facility] Comment on above: mL/min/1.73m2 CKD-EP I Creatinine Equation (2020) Hematocrit Auto (Bld) [Volum e fraction]Ordered By: Veronique Seymour on 03-17-2025 Hematocrit (Bld) [Volume fraction] 36.0 % Low 40-54 [facility] Hemoglobin measurementOrdere d By: Veronique Seymour on 03-17-2025 Hemoglobin (Bld) [Mass/Vol] 12.0 g/dL Low 13.0-16.5 [facility] Immature granulocytes/100 WB C Auto (Bld)Ordered By: Veronique Seymour on 03-17-2025 Immature granulocytes/100 WBC (Bld) 0.400 % 0.0-0.9 [facility] Comment on above: IG% - Immature Granu locytes (promyelocytes, myelocytes and metamyelocytes) > 1% indicates that a LEFT SHIFT is Present. International normalized rat io (INR) calculationOrdered By: Veronique Seymour on 03-17-2025 INR Coag (Bld) [Relative time] 1.0 {INR} [facility] MCV (mean corpuscular volume ) determinationOrdered By: Veronique Seymour on 03-17-2025 MCV (RBC) [Entitic vol] 87.0 fL 80-94 [facility] Mean corpuscular hemoglobin (MCH) determinationOrdered By: Veronique Seymour on 03-17-2025 MCH (RBC) [Entitic mass] 29.0 pg 27.0-32.0 [facility] Mean corpuscular hemoglobin concentration (MCHC) determinationOrdered By: Veronique Seymour on 03-17-2025 MCHC (RBC) [Mass/Vol] 33.3 g/dL 32-36 [facility] Mean platelet volume determi nationOrdered By: Veronique Seymour on 03-17-2025 Platelet mean volume (Bld) [Entitic vol] 9.5 fL 6.2-12.0 [facility] Monocyte percentageOrdered B y: Veronique Seymour on 03-17-2025 Monocytes/100 WBC (Bld) 4.8 % 0-10 [facility] Neutrophil percentageOrdered By: Veronique Seymour on 03-17-2025 Neutrophils/100 WBC (Bld) 78.0 % High 47-70 [facility] Nucleated red blood cell per centageOrdered By: Veronique Seymour on 03-17-2025 Nucleated RBC/100 WBC (Bld) [Ratio] 0 % 0-5 [facility] Platelet countOrdered By: Jens Seymour on 03-17-2025 Platelets (Bld) [#/Vol] 375 10*3/uL 150-450 [facility] Potassium measurement (mass/ volume)Ordered By: Veronique Seymour on 03-17-2025 Potassium (Unsp spec) [Mass/Vol] 4.2 mmol/L 3.3-5.1 [facility] Comment on above: Hemolysis present, R esults could be affected. Prothrombin timeOrdered By: Veronique Seymour on 03-17-2025 PT Coag (PPP) [Time] 13.3 s 11.7-14.9 [facility] RBC Auto (Bld) [#/Vol]Ordere d By: Veronique Seymour on 03-17-2025 RBC (Bld) [#/Vol] 4.14 10*6/uL Low 4.6-6.2 [facility] Serum creatinine measurement (mass/volume)Ordered By: Veronique Seymour on 03-17-2025 Creatinine [Mass/Vol] 0.81 mg/dL 0.70-1.20 [facility] Serum glucose measurement (m ass/volume)Ordered By: Veronique Seymour on 03-17-2025 Glucose [Mass/Vol] 169 mg/dL High 70-99 [facility] Serum or plasma calcium yash urement (mass/volume)Ordered By: Veronique Seymour on 03-17-2025 Calcium [Mass/Vol] 9.2 mg/dL 7.6-11.0 [facility] Serum or plasma urea nitroge n measurement (mass/volume)Ordered By: Veronique Seymour on 03-17-2025 Urea nitrogen [Mass/Vol] 15 mg/dL 4-19 [facility] Sodium levelOrdered By: Oskar Seymour on 03-17-2025 Sodium [Moles/Vol] 137 mmol/L 133-145 [facility] Troponin T.cardiac [Mass/vol ume] in Serum or Plasma by High sensitivity methodOrdered By: Veronique Seymour on 03-17-2025 Troponin T.cardiac High sensitivity method [Mass/Vol] 34 ng/L High <22 [facility] White blood cell (WBC) count Ordered By: Veronique Seymour on 03-17-2025 WBC (Bld) [#/Vol] 8.5 10*3/uL 4.4-11.0 [facility] 37on 03-15-2025 37 Weight restriction measures 1-4 weeks from date of surgery- 10lbs weight restriction: 04/01/25 5-8 weeks from date of surgery- 20lbs weight restriction approximate end date:04/29/25 Normal [facility] Office Visiton 03-15-2025 Follow-up visit [id number] Caio Turk 1965 M Date Provider Department Center 03/15/2025 [id number] A[facility] CT None Family History Problem Relation Age of Onset Diabetes Mother Coronary artery disease Mother Heart attack Mother Stroke Mother Diabetes Father Heart disease Mother Diabetes type II Mother Cancer Father Family Status - Relation Status Age at Mother Father Level of Service:00890 HI POSTOP FOLLOW UP VISIT RELATED TO ORIGINAL PX Reason for Visit and Comments: Post-op [483] Normal [facility] Progress Noteon 03-15-2025 Progress Note [facility]: CT [facility]GE[facility] [address] [facility] [address] Dept: [phone] Dept Loc: [phone] Visit type: Established patient - in person Surgery/Procedure: s/p CABGx3 (MEADE-LAD, SVG-OM2, SVG-diag2), KWAME, LEVH with Dr. Lane on 03/04/25 Reason for Visit: post op follow up Assessment/Plan Diagnosis: MVCAD s/p CABGx3 HTN T2DM HLD Plan: POD#11 Day from Discharge (03/08/25): #7 -Reviewed current meds: complaint No changes made No additional lasix needed Still with post op pain - reorder narcotic -Surgical Incisions: healing appropriately, well approximated, no s/s of infection Left upper groin small hematoma from EVH site - monitor -Physical therapy as outlined in discharge instructions: Not ready for Cardiac Rehab Not ready to drive -Weight restriction measures 1-4 weeks from date of surgery- 10lbs weight restriction: 04/01/25 5-8 weeks from date of surgery- 20lbs weight restriction approximate end date:04/29/25 -Follow up with PCP and Cards (Dr. Enrique) -Plan follow up 3 week virtual visit. Patient to call with any questions or concerns. They verbalized understanding *The patient's OARRS report was obtained and reviewed.* I explained to Wallace Turk that narcotic pain medications have addictive potential and should only be taken for acute post operative surgical pain. I also explained that narcotic/opioid medication should not be taken to help sleep as they are only intended to treat pain. In addition the patient needs to avoid driving or taking other narcotics, anxiolytics or consuming alcohol or using street drugs while they are taking the narcotic because serious side effects including can occur. I discussed the side effects that can occur when taking a narcotic alone including but not limited to: nausea, vomiting, constipation and drowsiness.I told the patient that if they have any reactions to the medication or any percieved problems with the medication, they are to stop the medication and call me. Subjective HPI: 59-year-old male who was seen in the OP setting for CABG evaluation. Patient has history of CAD status post PCI of the LAD in May 2012, hypertension, type 2 diabetes, and hyperlipidemia. Recently saw cardiology January 19, 2025 with complaints of chest discomfort with exertion. An outpatient cath was scheduled and he underwent cardiac cath on 02/07/2025 which demonstrated severe triple-vessel CAD with LV dysfunction. Revascularization was discussed and patient consented he was taken to the operating room on 03/04/[address]. Postoperative course was uncomplicated. Once patient was hemodynamically and medically stable, [facility]. 03/15/25: 59 y.o. male who presents today for post op follow up. Doing well overall. No issues or concerns today. VSS. Meds reviewed; patient still with post op pain; will reorder narcotic with expectation to wean off. No changes to medication, no additional lasix needed at this time. Slight hematoma noted at groin site on left from EVH. MSI healing appropriately with no signs of infection. ROM exercises and weight restrictions discussed. Patient needs follow up with Cards. No other needs at this time. Will plan follow up 3 week virtual unless needed earlier; patient will call with questions or concerns. Objective Vitals: 03/15/25 1129 BP: 130/74 Pulse: 82 Wt Readings from Last 3 Encounters: 03/15/25 205 lb (93 kg) 03/07/25 198 lb 6.6 oz (90 kg) 02/24/25 196 lb 4.8 oz (89 kg) Physical Exam Cardiovascular: Rate and Rhythm: Normal rate and regular rhythm. Heart sounds: Normal heart sounds. No murmur heard. No friction rub. Pulmonary: Effort: Pulmonary effort is normal. Skin: General: Skin is warm and dry. Capillary Refill: Capillary refill takes less than 2 seconds. Findings: Bruising and ecchymosis present. Comments: Surgical Incisions: well approximate; clean dry with no drainage noted. Surrounding skin no redness, warmth, or signs of infection noted. Neurological: Mental Status: He is alert. Psychiatric: Behavior: Behavior is cooperative. Labs/Imaging/Testing: reviewed EMR, see A&P for pertinent diagnostic results related to office visit Disclaimer INFORMED CONSENT:The nature and purpose of the proposed treatment or procedure have been discussed. The risks and benefits of the proposed treatment or procedures have been reviewed. Alternatives have been reviewed in addition to the risks and benefits of not receiving treatments or undergoing procedures. Pursuant to this discussion, the patient agrees to undergo the proposed treatment or procedure. Captured images seen in this note from are not a substitute for a comprehensive interpretation of the entire data set as reflected by the interpreting physician with regard to radiology, echocardiography, and other (more content not included)... [facility] 36on 03-09-2025 36 [facility] and have them fax over all labs results. [facility] [id number] 03-08-2025 [id number] Discussed Home Care Services available to patient post DC from the hospital. Educated the patient on the services that are provided, objective of home care, and reason for the services. The patient politely refused the home care services. The patient was educated that should any needs arise post DC to follow up with their PCP. The patient was able to verbalize understanding. Home care to sign off. Please re-consult should any other needs arise prior to DC. [facility] 36on 03-08-2025 36 Hello- can you pleas e call patient to get a sooner appt? Thanks Keena Prasad APRN - [employer]IL [employer]ESSING [employer]MENT MECH[employer]IC [facility] BASIC METABOLIC PANELon 02-12 Anion gap [Moles/Vol] 6 mmol/L Normal 3-13 [facility] Comment on above: Performed By: #### L [id number], [id number] #### Fibre Composite Technician: EDVIN HAYS ([id number]) [facility] ([facility]) [address] [place] [address] Calcium [Mass/Vol] 8.4 mg/dL Normal 8.4-10.2 [facility] Comment on above: Performed By: #### L AB314, [id number] #### Fibre Composite Technician: EDVIN HAYS ([id number]) [facility] ([facility]) [address] [place] [address] [place] Chloride [Moles/Vol] 104 mmol/L Normal 98-107 [facility] Comment on above: Performed By: #### L AB314, [id number] #### Fibre Composite Technician: EDVIN HAYS ([id number]) [facility] ([facility] [address] [place] [address] [place] CO2 [Moles/Vol] 30 mmol/L High 22-29 [facility] Comment on above: Performed By: #### L AB314, [id number] #### Fibre Composite Technician: EDVIN HAYS ([id number]) [facility] ([facility]) [address] [place] [address] Creatinine [Mass/Vol] 0.73 mg/dL Normal 0.72-1.25 [facility] Comment on above: Performed By: #### L AB314, [id number] #### Fibre Composite Technician: EDVIN HAYS ([id number]) [facility] ([facility]) [address] [place] [address] GLOMERULAR FILTRATION RATE ML/MIN/1.73 SQ M.PREDICTED >90.0 Normal >60.0 [facility] Comment on above: Result Comment: Calc ulation based on the Chronic Kidney Disease Epidemiology Collaboration (CKD-EPI) equation refit without adjustment for race Performed By: #### L AB314, [id number] #### Fibre Composite Technician: EDVIN HAYS ([id number]) [facility] ([facility]) [address] [place] [address] [place] Glucose [Mass/Vol] 194 mg/dL High 74-100 [facility] Comment on above: Performed By: #### L AB314, [id number] #### Fibre Composite Technician: EDVIN HAYS ([id number]) [facility]) [address] [place] [address] Potassium [Moles/Vol] 3.4 mmol/L Low 3.5-5.1 [facility] Comment on above: Result Comment: [facility] potassium values may be up to 0.5 mmol/L lower than serum values. Performed By: #### L AB314, [id number] #### Fibre Composite Technician: EDVIN HAYS ([id number]) [facility] ([facility]) [address] [place] [address] Sodium [Moles/Vol] 140 mmol/L Normal 136-145 [facility] Comment on above: Performed By: #### L AB314, [id number] #### Fibre Composite Technician: EDVIN HAYS ([id number]) [facility] ([facility]) [address] [place] [address] Urea nitrogen [Mass/Vol] 20 mg/dL Normal 9-23 [facility] Comment on above: Performed By: #### L AB314, [id number] #### Fibre Composite Technician: EDVIN HAYS ([id number]) [facility] ([facility]) [address] [place] [address] Basic metabolic 1998 panelon 03-08-2025 Anion gap [Moles/Vol] 6 mmol/L 3 - 13 mmol/L [facility] Calcium [Mass/Vol] 8.4 mg/dL 8.4 - 10. 2 mg/dL [facility] Chloride [Moles/Vol] 104 mmol/L 98 - 10 7 mmol/L [facility] CO2 [Moles/Vol] 30 mmol/L High 22 - 29 mmol/L [facility] Creatinine [Mass/Vol] 0.73 mg/dL 0.72 - 1.25 mg/dL [facility] GFR/1.73 sq M.predicted (S/P/Bld) [Vol rate/Area] - PINF [facility] Comment on above: Calculation based on the Chronic Kidney Disease Epidemiology Collaboration (CKD-EPI) equation refit without adjustment for race Glucose [Mass/Vol] 194 mg/dL High 74 - 100 mg/dL [facility] Interpretation and review of laboratory results Abnormal [facility] Potassium [Moles/Vol] 3.4 mmol/L Low 3.5 - 5.1 mmol/L [facility] Comment on above: Plasma potassium norma ues may be up to 0.5 mmol/L lower than serum values. Sodium [Moles/Vol] 140 mmol/L 136 - 145 mmol/L [facility] Urea nitrogen [Mass/Vol] 20 mg/dL 9 - 23 mg/dL [facility] CBC (HEMOGRAM)on 03-08-2025 Erythrocyte distribution width (RBC) [Ratio] 13.6 % Normal 11.5-15.0 [facility] Comment on above: Performed By: #### L AB103, [id number] #### Fibre Composite Technician: EDVIN HAYS ([id number]) [facility]) [address] [place] [address] Hematocrit (Bld) [Volume fraction] 30.8 % Low 40.0-52.0 [facility] Comment on above: Performed By: #### L AB103, LAB15 #### Fibre Composite Technician: EDVIN HAYS ([id number]) [facility]) [address] [place] [address] Hemoglobin (Bld) [Mass/Vol] 10.2 g/dL Low 13.0-18.0 [facility] Comment on above: Performed By: #### L AB103, LAB15 #### Fibre Composite Technician: EDVIN HAYS ([id number]) [facility] ([facility]) [address] [place] [address] MCH (RBC) [Entitic mass] 28.9 pg Normal 26.0-34.0 [facility] Comment on above: Performed By: #### L AB103, LAB15 #### Fibre Composite Technician: EDVIN HAYS ([id number]) [facility]) [address] [place] [address] MCHC 33.1 % Normal 30.5-36.0 [facility] Comment on above: Performed By: #### L AB103, LAB15 #### Fibre Composite Technician: EDVIN HAYS ([id number]) [facility]) [address] [place] [address] MCV (RBC) [Entitic vol] 87.3 fL Normal 77.0-99.0 [facility] Comment on above: Performed By: #### L AB103, LAB15 #### Fibre Composite Technician: EDVIN HAYS ([id number]) [facility]) [address] [place] [address] Platelet mean volume (Bld) [Entitic vol] 11.3 fL Normal 9.0-12.7 [facility] Comment on above: Performed By: #### L AB103, LAB15 #### Fibre Composite Technician: EDVIN HAYS ([id number]) [facility]) [address] [place] [address] Platelets (Bld) [#/Vol] 167 10*3/uL Normal 140-440 [facility] Comment on above: Performed By: #### L AB103, LAB15 #### Fibre Composite Technician: EDVIN HAYS ([id number]) [facility]) [address] [place] [address] RBC (Bld) [#/Vol] 3.53 10*6/uL Low 4.40-5.90 [facility] Comment on above: Performed By: #### Vicente AB103, LAB15 #### Fibre Composite Technician: EDVIN HAYS ([id number]) [facility] ([facility]) [address] [place] [address] WBC (Bld) [#/Vol] 4.6 10*3/uL Normal 3.6-10.7 [facility] Comment on above: Performed By: #### L AB103, LAB15 #### Fibre Composite Technician: EDVIN HAYS ([id number]) [facility]) [address] [place] [address] CBC panel Auto (Bld)on 03-08 Erythrocyte distribution width (RBC) [Ratio] 13.6 % 11.5 - 15.0 % [facility] Hematocrit (Bld) [Volume fraction] 30.8 % Low 40.0 - 52.0 % [facility] Hemoglobin (Bld) [Mass/Vol] 10.2 g/dL Low 13.0 - 18.0 g/dL [facility] Interpretation and review of laboratory results Abnormal [facility] MCH (RBC) [Entitic mass] 28.9 pg 26. 0 - 34.0 pg [facility] MCHC (RBC) [Mass/Vol] 33.1 % 30.5 - 36.0 % [facility] MCV (RBC) [Entitic vol] 87.3 fL 77.0 - 99.0 fL [facility] Platelet mean volume (Bld) [Entitic vol] 11.3 fL 9.0 - 12.7 fL [facility] Platelets (Bld) [#/Vol] 167 10*3/uL 140 - 440 10*3/uL [facility] RBC (Bld) [#/Vol] 3.53 10*6/uL Low 4.40 - 5.90 10*6/uL [facility] WBC (Bld) [#/Vol] 4.6 10*3/uL 3.6 - 10.7 10*3/uL [facility] Laboratory - Chemistry and C hemistry - challengeon 03-08-2025 Glucose [Mass/Vol] 167 mg/dL High 70 - 100 mg/dL [facility] Glucose [Mass/Vol] 188 mg/dL High 70 - 100 mg/dL [facility] Magnesium [Mass/Vol] 1.7 mg/dL 1.6 - 2 .6 mg/dL [facility] MAGNESIUMon 03-08-2025 Magnesium [Mass/Vol] 1.7 mg/dL Normal 1.6-2.6 [facility] Comment on above: Result Comment: GEORGE Hernadez COMMENTS: Higher values can be expected in females during menses. Performed By: #### L AB314, [id number] #### Fibre Composite Technician: EDVIN HAYS ([id number]) [facility] ([facility]) [address] [place] [address] Magnesium [Mass/Vol]on 03-08 Interpretation and review of laboratory results Normal [facility] Higher values can be expected in females during menses. [facility] No Panel Informationon 03-08 Interpretation and review of laboratory results Abnormal [facility] Performed by: [address] [address] CLIA ID: [id number] [facility] Interpretation and review of laboratory results Abnormal [facility] Performed by: [facility], [address] [place] [address] CLIA ID: [id number] [facility] Progress Noteon 03-08-2025 Progress Note PHYSICAL THERAPY [facility] Treatment Note Name/MRN: Wallace Turk ([id number]) Date of : 1965 Age: 59 y.o. Room/Bed: T1-123/T1-123 A Discharge Recommendation: Home with assist PRN Equipment Needed: No Prior Level of Function Prior Level of ADL Function: Independent Prior Level of Mobility: Independent; Device: None Prior Level of Transfers: Independent Assessment Pt is at SBA to supervision level for all mobility this session. No LOB noted. He is compliant with sternal precautions. No PT goals met this session. Recommend home with PRN assist at discharge. Subjective Pt is supine in the bed, agrees to PT. present. Pain: 0-10 pain scale: 3/10 Location: chest/incision Medical Precautions: No active isolations Proper PPE donned/doffed in accordance with facility standards. Fall Risk: Khan Fall Risk Score: 35 (Medium Risk) Precautions/Restrictions: Sternal Precautions: No Pushing, No Pulling, No Lifting Greater Than 10 lbs and No lifting greater than 10 lbs. Ok for modified UE precautions using Keep Your Move in the Tube technique Lines/Drains/Airways: tele Overall Cognitive Status: WNL Overall Orientation Status: Oriented x4 Family/Caregiver Present: spouse Objective Bed Mobility Supine to sit: Supervision Sit to supine: Supervision Rolling to right: Supervision HOB Elevated Transfers/Mobility Sit to stand: Supervision Stand to sit: Supervision Ambulation Ambulation 1 Assistive device(s) used: None Assist level: Supervision Distance (ft): 400 ft Quality of gait: No LOB Stairs Stairs 1 Assistive device(s) used: None Assist level: SBA # of steps: 4 Rails: none Additional factors: reciprocal going up, reciprocal going down Plan Continue acute PT per plan of care. Safety/Education Safety Safety Devices in place: All fall risk precautions in place, call light within reach, left in bed, and no alarms engaged upon entry Restraints: No Education Education Given To: patient Education Provided: PT Role, PT Goals, Gait Training, Plan of Care, Precautions, Transfer Training, and Discharge Recommendations Education Method: Verbal Barriers to Learning: None Education Outcome: Verbalized Understanding Outcome Measures AM-PAC AM-PAC Inpatient Mobility Raw Score : 24 AM-PAC Inpatient Mobility Raw Score (No Stairs) : 20 JH-HLM JH-HLM Score: Walked 250 ft or more (i.e. several laps on unit) Goals Patient Stated Goal: To go home. Encounter Problems Encounter Problems (Active) Cardiac Patient will perform bed mobility with modified independence in order to improve independence and prepare for out of bed mobility. (Progressing) Start: 03/05/25 Expected End: 04/02/25 Patient will complete sit to stand transfer with modified independence to none in order to improve safety and prepare for out of bed mobility. (Progressing) Start: 03/05/25 Expected End: 04/02/25 Patient will ambulate 350 feet or ambulate 5 minutes with modified independence with RPE of 14 or lower. (Progressing) Start: 03/05/25 Expected End: 04/02/25 Patient will ascend and descend 3 # stairs with supervision rail for balance only. (Progressing) Start: 03/05/25 Expected End: 04/02/25 Patient will be independent with P&C exercises. (Not Addressed) Start: 03/05/25 Expected End: 04/02/25 Patient will be independent with managing secretions and home walking program. (Progressing) Start: 03/05/25 Expected End: 04/02/25 Therapy Time Individual Co-treatment Time In 1114 Time Out 1129 Minutes 15 Timed Code Treatment Minutes: (GT) Laura Claudio PTA [facility] Progress Note ----- ----- Attestation signed by Tatum Lyles MD at 03/08/2025 3:23 PM I independently performed a history and physical examination of the patient. I have reviewed the patient's chart including pertinent history, medications, labs, radiology, consult/progress notes, and other pertinent records. I reviewed the NOELLE's note, agree with the documented findings and plan of care (with modifications noted if any), and discussed the management plan. I have performed a substantive portion of the the medical decision making. Pt doing well. He denies any new complaints. He is ready for discharge to home. BG much improved today. Adult diet Regular; 4 carb choices (60 gm/meal) Estimated Creatinine Clearance: 123.8 mL/min (by C-G formula based on SCr of 0.73 mg/dL). BP 157/82 (BP Location: Right arm, Patient Position: Lying) Pulse 88 Temp 36.5 ?C (97.7 ?F) (Temporal) Resp 16 Ht 5' 9.02 (1.753 m) Wt 198 lb 6.6 oz (90 kg) SpO2 95% BMI 29.29 kg/m? awake, alert, not in distress, RR, unlabored breathing, no edema, no focal deficits, normal mood and affect. Dx: Type 2 diabetes with hyperglycemia with long-term insulin use Type 2 diabetes with cardiac complication CAD s/p CABG Overweight Body mass index is 29.29 kg/m?. Plan: - Will discharge patient home on Lantus 18 units QAM and Humalog 8 units TID - Reviewed insulin regimen - Patient will monitor BG 4 times daily before meals and bedtime - Encouraged to resume CGM --he was agreeable to trying Dexcom G7 again; he has the phone noelle - counseled pt on DM management - carb controlled diet - can consider SGLT-2 and GLP-1 agents in the future - advised to get labs done (c-peptide and T1DM Abs) prior to FU appt Anticipated homegoing regimen: Lantus/Humalog FU with Endocrinology outpatient. Will try to set up a sooner appointment for posthospital follow-up. Total time 25 minutes which include review of records, counseling, management, documentation, and coordination of care as documented in note. ----- Department of Internal Medicine Division of Endocrinology, Diabetes, & Metabolism Endocrinology Note Patient Name: Wallace Turk : 1965 AGE: 59 y.o. Room/Bed: T1-123/T1-123 A Admission Date: 03/04/2025 Visit Date: 03/08/2025 Reason for Endocrine Consult: post heart Provider/Team Requesting Consult: cts PCP: No primary care provider on file. Outpt Incident Response Consultant: Yes Ellis Marquez ASSESSMENT: Type 2 diabetes with hyperglycemia with long-term insulin use Type 2 diabetes with cardiac complication Overweight Body mass index is 28.94 kg/m?. PLAN: Blood glucose readings variable but stable Continue Lantus 18 units every morning Continue Humalog units tid meals Continue Humalog moderate dose sliding scale ICU goal <180 GMF goal <150 POCT BG ACHS Hypoglycemia management per protocol Carb controlled diet ANTICIPATED ENDOCRINE HOME GOING RECOMMENDATIONS: Optimized for Discharge from Endocrine standpoint: yes Home Going Endocrine Rx Recommendations-- Lantus pens current dose 18 units hs Humalog pens current dose Clara pen needles [id number] Dexcom g7 sensors Outpt Follow Up-- 05-27 Richard Marquez TE sent for sooner appt SUBJECTIVE/HPI: CHIEF COMPLAINT: S/p CABGx3 Patient known to endcrine team outpatient for DM2- see prior notes. Recently started on home insulin outpatient. No noted hx of thyroid disease. 03-08: BGL stable VSS RA Up in bed awake alert Eating well Family in room Will dc today- discussed home going plans- will send for sooner FU with us 03-07: Blood sugar below, variable but stable He is awake alert up in chair VSS RA States that all of his breakfast Denies nausea vomiting abdominal pain No new complaints today No word on discharge as of yet Type of DM: 2 Onset of DM: 2013 Home DM Medication Regimen: dexcom g7, lantus 12, humalog -per chart DM control (last A1c/glucose data): Lab Results Component Value Date HGBA1C 11.7 (A) 02/24/2025 Glucose Date/Time Value Ref Range Status 03/08/2025 07:49 AM 188 (H) 70 - 100 mg/dL Final 03/07/2025 10:42 PM 228 (H) 70 - 100 mg/dL Final 03/07/2025 04:54 PM 129 (H) 70 - 100 mg/dL Final 03/07/2025 01:13 PM 260 (H) 70 - 100 mg/dL Final 03/07/2025 07:52 AM 178 (H) 70 - 100 mg/dL Final 03/06/2025 09:02 PM 199 (H) 70 - 100 mg/dL Final Review of Systems ROS negative except for those mentioned in HPI. OBJECTIVE: Vitals: 03/07/25 2200 03/07/25 2300 03/08/25 0002 03/08/25 0641 BP: 133/73 152/81 BP Location: Right arm Right arm Patient Position: Sitting Lying Pulse: 75 69 65 71 Resp: 18 16 Temp: 36.3 ?C (97.4 ?F) 36.5 ?C (97.7 ?F) TempSrc: Temporal Temporal SpO2: 93% 92% Weight: Height: Physical Exam Vitals and nurs (more content not included)... Normal [facility] XR CHEST 1 VIEWon 03-08-2025 XR CHEST 1 VIEW Patient Name: WALLACE TURK : 1965 Exam Date/Time: 03/08/2025 05:09 Procedure: XR CHEST 1 VIEW Ordering Provider: ROMERO ANDREW Reason For Exam: Shortness of breath CLINICAL INFORMATION: Shortness of breath. Chest tube removal. Portable view of the chest at 0510 hours is provided and compared with a previous study dated 03/07/2025. FINDINGS: The patient is status post CABG with the usual sternal wires and surgical clips. The cardiac silhouette and mediastinum are otherwise within normal limits. There are no focal infiltrates. Chest tubes have been removed. There is no pneumothorax. IMPRESSION: 1. Postoperative changes (CABG). 2. No pneumothorax after chest tube removal. Report Dictated on Electronically Signed By: Oswald Hamilton MD Electronically Signed Date/Time: 03/08/2025 5:32 AM EDT [facility] XR Chest Single viewon 03-08 1. Postoperative sloan nges (CABG). 2. No pneumothorax after chest tube removal. Report Dictated on Electronically Signed By: Oswald Hamilton MD Electronically Signed Date/Time: 03/08/2025 5:32 AM EDT [facility] Patient Name: WALLACE TURK : 1965 Exam Date/Time: 03/08/2025 05:09 Procedure: XR CHEST 1 VIEW Ordering Provider: ROMERO ANDREW Reason For Exam: Shortness of breath CLINICAL INFORMATION: Shortness of breath. Chest tube removal. Portable view of the chest at 0510 hours is provided and compared with a previous study dated 03/07/2025. FINDINGS: The patient is status post CABG with the usual sternal wires and surgical clips. The cardiac silhouette and mediastinum are otherwise within normal limits. There are no focal infiltrates. Chest tubes have been removed. There is no pneumothorax. [facility] Oswald Hamilton MD - 03/08/2025 Patient Name: WALLACE TURK : 1965 [id number] Exam Date/Time: 03/08/2025 05:09 Procedure: XR CHEST 1 VIEW Ordering Provider: ROMERO ANDREW Reason For Exam: Shortness of breath CLINICAL INFORMATION: Shortness of breath. Chest tube removal. Portable view of the chest at 0510 hours is provided and compared with a previous study dated 03/07/2025. FINDINGS: The patient is status post CABG with the usual sternal wires and surgical clips. The cardiac silhouette and mediastinum are otherwise within normal limits. There are no focal infiltrates. Chest tubes have been removed. There is no pneumothorax. IMPRESSION: 1. Postoperative changes (CABG). 2. No pneumothorax after chest tube removal. Report Dictated on Electronically Signed By: Oswald Hamilton MD Electronically Signed Date/Time: 03/08/2025 5:32 AM EDT [facility] Radiology Study observation (narrative) [facility] XR Chest Single viewOrdered By: Oswald Hamilton on 03-08-2025 [facility] Work Phone: BASIC METABOLIC PANELon 02-12 Anion gap [Moles/Vol] 7 mmol/L Normal 3-13 [facility] Comment on above: Performed By: #### L AB103, LAB15 #### Fibre Composite Technician: EDVIN HAYS ([id number]) [facility] ([facility]) [address] [place] [address] Calcium [Mass/Vol] 8.5 mg/dL Normal 8.4-10.2 [facility] Comment on above: Performed By: #### L AB103, LAB15 #### Fibre Composite Technician: EDVIN HAYS ([id number]) [facility] ([facility] [address] [place] [address] Chloride [Moles/Vol] 107 mmol/L Normal 98-107 [facility] Comment on above: Performed By: #### L AB103, LAB15 #### Fibre Composite Technician: EDVIN HAYS ([id number]) [facility] ([facility]) [address] [place] [address] [place] CO2 [Moles/Vol] 26 mmol/L Normal 22-29 [facility] Comment on above: Performed By: #### L AB103, LAB15 #### Fibre Composite Technician: EDVIN HAYS ([id number]) [facility] ([facility]) [address] [place] [address] Creatinine [Mass/Vol] 0.71 mg/dL Low 0.72-1.25 [facility] Comment on above: Performed By: #### L AB103, LAB15 #### Fibre Composite Technician: EDVIN HAYS ([id number]) [facility]) [address] [place] [address] GLOMERULAR FILTRATION RATE ML/MIN/1.73 SQ M.PREDICTED >90.0 Normal >60.0 [facility] Comment on above: Result Comment: Calc ulation based on the Chronic Kidney Disease Epidemiology Collaboration (CKD-EPI) equation refit without adjustment for race Performed By: #### L AB103, LAB15 #### Fibre Composite Technician: EDVIN HAYS ([id number]) [facility] ([facility]) [address] [place] [address] [place] Glucose [Mass/Vol] 154 mg/dL High 74-100 [facility] Comment on above: Performed By: #### L AB103, LAB15 #### Fibre Composite Technician: EDVIN HAYS ([id number]) [facility]) [address] [place] [address] [place] Potassium [Moles/Vol] 3.6 mmol/L Normal 3.5-5.1 [facility] Comment on above: Result Comment: [facility] potassium values may be up to 0.5 mmol/L lower than serum values. Performed By: #### L AB103, LAB15 #### Fibre Composite Technician: EDVIN HAYS ([id number]) [facility] ([facility]) [address] [place] [address] Sodium [Moles/Vol] 140 mmol/L Normal 136-145 [facility] Comment on above: Performed By: #### L AB103, LAB15 #### Fibre Composite Technician: EDVIN HAYS ([id number]) [facility] ([facility]) [address] [place] [address] Urea nitrogen [Mass/Vol] 20 mg/dL Normal 9-23 [facility] Comment on above: Performed By: #### L AB103, LAB15 #### Fibre Composite Technician: EDVIN HAYS ([id number]) [facility] ([facility]) [address] [place] [address] Basic metabolic 1998 panelon 03-07-2025 Anion gap [Moles/Vol] 7 mmol/L 3 - 13 mmol/L [facility] Calcium [Mass/Vol] 8.5 mg/dL 8.4 - 10. 2 mg/dL [facility] Chloride [Moles/Vol] 107 mmol/L 98 - 10 7 mmol/L [facility] CO2 [Moles/Vol] 26 mmol/L 22 - 29 mmol/L [facility] Creatinine [Mass/Vol] 0.71 mg/dL Low 0.72 - 1.25 mg/dL [facility] GFR/1.73 sq M.predicted (S/P/Bld) [Vol rate/Area] - PINF [facility] Comment on above: Calculation based on the Chronic Kidney Disease Epidemiology Collaboration (CKD-EPI) equation refit without adjustment for race Glucose [Mass/Vol] 154 mg/dL High 74 - 100 mg/dL [facility] Interpretation and review of laboratory results Abnormal [facility] Potassium [Moles/Vol] 3.6 mmol/L 3.5 - 5.1 mmol/L [facility] Comment on above: Plasma potassium norma ues may be up to 0.5 mmol/L lower than serum values. Sodium [Moles/Vol] 140 mmol/L 136 - 145 mmol/L [facility] Urea nitrogen [Mass/Vol] 20 mg/dL 9 - 23 mg/dL [facility] CALCIUM, IONIZEDon CALCIUM IONIZED 4.30 mg/dL Normal 4.30-5.20 [facility] Comment on above: Order Comment: Obtai n PRN and check ionized Ca level if serum Ca level less than 8.0 Performed By: #### L AB54 ####Fibre Composite Technician: EDVIN HAYS ([id number])[facility])[address] [place] [address] PH, IONIZED CALCIUM 7.43 Normal 7.31-7.46 [facility] Comment on above: Order Comment: Obtai n PRN and check ionized Ca level if serum Ca level less than 8.0 Performed By: #### L AB54 ####Fibre Composite Technician: EDVIN HAYS ([id number])[facility] ([facility])[address] [place] [address] CBC (HEMOGRAM)on 03-07-2025 Erythrocyte distribution width (RBC) [Ratio] 13.5 % Normal 11.5-15.0 [facility] Comment on above: Performed By: #### L AB294 ####Fibre Composite Technician: EDVIN HAYS ([id number])[facility])[address] [place] [address] Hematocrit (Bld) [Volume fraction] 31.5 % Low 40.0-52.0 [facility] Comment on above: Performed By: #### L AB294 ####Fibre Composite Technician: EDVIN HAYS ([id number])[facility] ([facility])[address] [place] [address] Hemoglobin (Bld) [Mass/Vol] 10.3 g/dL Low 13.0-18.0 [facility] Comment on above: Performed By: #### L AB294 ####Fibre Composite Technician: EDVIN HAYS ([id number])[facility] ([facility])[address] [place] [address] [place] IPF 4 Normal [facility] Comment on above: Performed By: #### L AB294 ####Fibre Composite Technician: EDVIN HAYS ([id number])[facility])[address] [place] [address] MCH (RBC) [Entitic mass] 28.9 pg Normal 26.0-34.0 [facility] Comment on above: Performed By: #### L AB294 ####Fibre Composite Technician: EDVIN HAYS ([id number])[facility] ([facility])[address] [place] [address] MCHC 32.7 % Normal 30.5-36.0 [facility] Comment on above: Performed By: #### L AB294 ####Fibre Composite Technician: EDVIN HAYS ([id number])[facility] ([facility])[address] [place] [address] MCV (RBC) [Entitic vol] 88.2 fL Normal 77.0-99.0 [facility] Comment on above: Performed By: #### L AB294 ####Fibre Composite Technician: EDVIN HAYS ([id number])[facility] ([facility])[address] [place] [address] Platelet mean volume (Bld) [Entitic vol] 11.4 fL Normal 9.0-12.7 [facility] Comment on above: Performed By: #### L AB294 ####Fibre Composite Technician: EDVIN HAYS ([id number])[facility])[address] [place] [address] Platelets (Bld) [#/Vol] 130 10*3/uL Low 140-440 [facility] Comment on above: Performed By: #### L AB294 ####Fibre Composite Technician: EDVIN HAYS ([id number])[facility])[address] [place] [address] RBC (Bld) [#/Vol] 3.57 10*6/uL Low 4.40-5.90 [facility] Comment on above: Performed By: #### L AB294 ####Fibre Composite Technician: EDVIN HAYS ([id number])[facility] ([facility])[address] [place] [address] WBC (Bld) [#/Vol] 5.5 10*3/uL Normal 3.6-10.7 [facility] Comment on above: Performed By: #### L AB294 ####Fibre Composite Technician: EDVIN HAYS ([id number])[facility] ([facility])[address] [place] [address] CBC panel Auto (Bld)on 03-07 Erythrocyte distribution width (RBC) [Ratio] 13.5 % 11.5 - 15.0 % [facility] Hematocrit (Bld) [Volume fraction] 31.5 % Low 40.0 - 52.0 % [facility] Hemoglobin (Bld) [Mass/Vol] 10.3 g/dL Low 13.0 - 18.0 g/dL [facility] Interpretation and review of laboratory results Abnormal [facility] IPF 4 [facility] MCH (RBC) [Entitic mass] 28.9 pg 26. 0 - 34.0 pg [facility] MCHC (RBC) [Mass/Vol] 32.7 % 30.5 - 36.0 % [facility] MCV (RBC) [Entitic vol] 88.2 fL 77.0 - 99.0 fL [facility] Platelet mean volume (Bld) [Entitic vol] 11.4 fL 9.0 - 12.7 fL [facility] Platelets (Bld) [#/Vol] 130 10*3/uL Low 140 - 440 10*3/uL [facility] RBC (Bld) [#/Vol] 3.57 10*6/uL Low 4.40 - 5.90 10*6/uL [facility] WBC (Bld) [#/Vol] 5.5 10*3/uL 3.6 - 10.7 10*3/uL [facility] Calcium.ionized [Moles/Vol]o n 03-07-2025 Calcium.ionized (Bld) [Moles/Vol] 4.3 mg/dL 4.30 - 5.20 mg/dL [facility] Interpretation and review of laboratory results Normal [facility] PH, IONIZED CALCIUM 7.43 7.31 - 7.46 [facility] Laboratory - Chemistry and C hemistry - challengeon 03-07-2025 Glucose [Mass/Vol] 228 mg/dL High 70 - 100 mg/dL [facility] Glucose [Mass/Vol] 129 mg/dL High 70 - 100 mg/dL [facility] Glucose [Mass/Vol] 260 mg/dL High 70 - 100 mg/dL [facility] Glucose [Mass/Vol] 178 mg/dL High 70 - 100 mg/dL [facility] Magnesium [Mass/Vol] 1.9 mg/dL 1.6 - 2 .6 mg/dL [facility] MAGNESIUMon 03-07-2025 Magnesium [Mass/Vol] 1.9 mg/dL Normal 1.6-2.6 [facility] Comment on above: Result Comment: GEORGE Hernadez COMMENTS: Higher values can be expected in females during menses. Performed By: #### L AB103, LAB15 #### Fibre Composite Technician: EDVIN HAYS ([id number]) [facility] ([facility]) [address] [place] [address] Magnesium [Mass/Vol]on 03-07 Interpretation and review of laboratory results Normal [facility] Higher values can be expected in females during menses. [facility] No Panel Informationon 03-07 Interpretation and review of laboratory results Abnormal [facility] Performed by: [place] [id number] CLIA ID: [id number] [facility] Interpretation and review of laboratory results Abnormal [facility] Performed by: [place] [id number] CLIA ID: [id number] [facility] Interpretation and review of laboratory results Abnormal [facility] Performed by: [place] [id number] CLIA ID: [id number] [facility] Interpretation and review of laboratory results Abnormal [facility] Performed by: [place] [id number] CLIA ID: [id number] [facility] Progress Noteon 03-07-2025 Progress Note Chest tubes assessed : no air leak, subcutaneous air noted. Chest tubes removed without difficulty and dressing applied. Patient tolerated well. Patient and nurse educated on possible complications to observe for. Will continue to monitor. Normal [facility] Progress Note PHYSICAL THERAPY [facility] Treatment Note Name/MRN: Wallace Turk ([id number]) Date of : 1965 Age: 59 y.o. Room/Bed: T1-123/T1-123 A Discharge Recommendation: Home with assist PRN Equipment Needed: No Prior Level of Function Prior Level of ADL Function: Independent Prior Level of Mobility: Independent; Device: None Prior Level of Transfers: Independent Assessment Pt did well with PT this session. He ambulated around the unit 2 times with SBA to supervision with rollator. Pt should be able to progress to without a device. No PT goals met this session. Recommend home with PRN assist at discharge. Subjective Pt is agreeable to PT. Standing with RN, about to go for a walk. Okay for PT per RN. Pain: 0-10 pain scale: 3/10 Location: chest/incision, chest tube site Medical Precautions: No active isolations Proper PPE donned/doffed in accordance with facility standards. Fall Risk: Khan Fall Risk Score: 60 (High Risk) Precautions/Restrictions: Sternal Precautions: No Pushing, No Pulling, No Lifting Greater Than 10 lbs and No lifting greater than 10 lbs. Ok for modified UE precautions using Keep Your Move in the Tube technique Lines/Drains/Airways: tele, CVC, chest tube Overall Cognitive Status: WNL Overall Orientation Status: Oriented x4 Family/Caregiver Present: none Objective Transfers/Mobility Stand to sit: SBA Ambulation Ambulation 1 Assistive device(s) used: Rollator Assist level: SBA Distance (ft): 350 ft Ambulation 2 Assistive device(s) used: Rollator Assist level: Supervision Distance (ft): 350 ft Quality of gait: No LOB Balance During Session: Static stand at rollator with supervision Exercises Exercises Upper Extremity: P&C exercises 1-9 x 6-8 reps each Comments: I.S. 3725-0354 mL Plan Continue acute PT per plan of care. Safety/Education Safety Safety Devices in place: All fall risk precautions in place, call light within reach, left in chair, nurse notified, and no alarms engaged upon entry Restraints: No Education Education Given To: patient Education Provided: PT Role, PT Goals, Gait Training, Plan of Care, Home Exercise Program, Precautions, Transfer Training, and Discharge Recommendations Education Method: Verbal and Printed Information Barriers to Learning: None Education Outcome: Verbalized Understanding and Continued Education Needed Outcome Measures AM-PAC AM-PAC Inpatient Mobility Raw Score (No Stairs) : 15 JH-HLM JH-HLM Score: Walked 250 ft or more (i.e. several laps on unit) Goals Patient Stated Goal: To go home. Encounter Problems Encounter Problems (Active) Cardiac Patient will perform bed mobility with modified independence in order to improve independence and prepare for out of bed mobility. (Not Addressed) Start: 03/05/25 Expected End: 04/02/25 Patient will complete sit to stand transfer with modified independence to none in order to improve safety and prepare for out of bed mobility. (Progressing) Start: 03/05/25 Expected End: 04/02/25 Patient will ambulate 350 feet or ambulate 5 minutes with modified independence with RPE of 14 or lower. (Progressing) Start: 03/05/25 Expected End: 04/02/25 Patient will ascend and descend 3 # stairs with supervision rail for balance only. (Not Addressed) Start: 03/05/25 Expected End: 04/02/25 Patient will be independent with P&C exercises. (Progressing) Start: 03/05/25 Expected End: 04/02/25 Patient will be independent with managing secretions and home walking program. (Progressing) Start: 03/05/25 Expected End: 04/02/25 Therapy Time Individual Co-treatment Time In 1105 Time Out 1130 Minutes 25 Timed Code Treatment Minutes: (GT, TP) Laura Claudio PTA [facility] Progress Note ----- ----- Attestation signed by Tatum Lyles MD at 03/07/2025 11:08 PM I independently performed a history and physical examination of the patient. I have reviewed the patient's chart including pertinent history, medications, labs, radiology, consult/progress notes, and other pertinent records. I reviewed the NOELLE's note, agree with the documented findings and plan of care (with modifications noted if any), and discussed the management plan. I have performed a substantive portion of the the medical decision making. Pt doing well. He denies any new complaints. Good appetite. He states that he is eating more in the hospital as he was advised to order additional food when he does not order enough carbs. He is currently on Adult diet Regular; 5 carb choices (75 gm/meal) BG upper 100s-200s. He is worried about needing more insulin. Adult diet Regular; 5 carb choices (75 gm/meal) Estimated Creatinine Clearance: 125 mL/min (A) (by C-G formula based on SCr of 0.71 mg/dL (L)). BP 125/71 (BP Location: Left arm, Patient Position: Sitting) Pulse 79 Temp 37 ?C (98.6 ?F) (Temporal) Resp 18 Ht 5' 9.02 (1.753 m) Wt 198 lb 6.6 oz (90 kg) SpO2 94% BMI 29.29 kg/m? awake, alert, not in distress, RR, chest incision intact, intact pulses, unlabored breathing, no edema, no focal deficits, normal mood and affect. Dx: Type 2 diabetes with hyperglycemia with long-term insulin use Type 2 diabetes with cardiac complication CAD s/p CABG Overweight Body mass index is 29.29 kg/m?. Plan: - continue Lantus 18 units QAM - increase Humalog to 8 units TID - discussed insulin regimen - closely monitor BG; adjust doses as necessary - management of hypoglycemia per protocol - counseled pt on DM management - counseled patient regarding importance of adequate glycemic control - carb controlled diet -- will change to 60 g per meal - will resume Dexcom outpt - can consider SGLT-2 and GLP-1 agents in the future - advised to get labs done (c-peptide and T1DM Abs) prior to FU appt Anticipated homegoing regimen: Lantus/Humalog FU with Endocrinology outpatient. Total time 35 minutes which include review of records, counseling, management, documentation, and coordination of care as documented in note. ----- Department of Internal Medicine Division of Endocrinology, Diabetes, & Metabolism Endocrinology Note Patient Name: Wallace Turk : 1965 AGE: 59 y.o. Room/Bed: T1-123/T1-123 A Admission Date: 03/04/2025 Visit Date: 03/07/2025 Reason for Endocrine Consult: post heart Provider/Team Requesting Consult: cts PCP: No primary care provider on file. Outpt Incident Response Consultant: Yes Ellis Marquez ASSESSMENT: Type 2 diabetes with hyperglycemia with long-term insulin use Type 2 diabetes with cardiac complication Overweight Body mass index is 28.94 kg/m?. PLAN: Blood glucose readings variable but stable Continue Lantus 18 units every morning Continue Humalog 6/6/6 units tid meals Continue Humalog moderate dose sliding scale ICU goal <180 GMF goal <150 POCT BG ACHS Hypoglycemia management per protocol Carb controlled diet ANTICIPATED ENDOCRINE HOME GOING RECOMMENDATIONS: Optimized for Discharge from Endocrine standpoint: No Home Going Endocrine Rx Recommendations-- Lantus pens current dose Humalog pens current dose Clara pen needles [id number] Dexcom sensors Outpt Follow Up-- 05-27 Richard Marquez SUBJECTIVE/HPI: CHIEF COMPLAINT: S/p CABGx3 Patient known to endcrine team outpatient for DM2- see prior notes. Recently started on home insulin outpatient. No noted hx of thyroid disease. 03-07: Blood sugar below, variable but stable He is awake alert up in chair VSS RA States that all of his breakfast Denies nausea vomiting abdominal pain No new complaints today No word on discharge as of yet Type of DM: 2 Onset of DM: 2013 Home DM Medication Regimen: dexcom g7, lantus 12, humalog //4-per chart DM control (last A1c/glucose data): Lab Results Component Value Date HGBA1C 11.7 (A) 02/24/2025 Glucose Date/Time Value Ref Range Status 03/07/2025 07:52 AM 178 (H) 70 - 100 mg/dL Final 03/06/2025 09:02 PM 199 (H) 70 - 100 mg/dL Final 03/06/2025 06:48 PM 230 (H) 70 - 100 mg/dL Final 03/06/2025 01:04 PM 208 (H) 70 - 100 mg/dL Final 03/06/2025 06:33 AM 150 (H) 70 - 100 mg/dL Final 03/05/2025 09:08 PM 197 (H) 70 - 100 mg/dL Final Review of Systems ROS negative except for those mentioned in HPI. OBJECTIVE: Vitals: 03/07/25 0930 03/07/25 0945 03/07/25 1000 03/07/25 1015 BP: 123/69 120/70 129/68 128/68 BP Location: Patient Position: Pulse: 84 83 81 82 Resp: Temp: TempSrc: SpO2: Weight: Height: Physical Exam Vitals and nursing note reviewed. Constitutional: General: He is (more content not included)... Normal [facility] Progress Note Discussed with Dr. Lane pull wires Patient placed in bed Epicardial pacing wire pulled without difficulty per protocol. Patient and nurse educated on possible complications. Patient tolerated well. Will continue to monitor. Normal [facility] US Heart Transesophagealon 0 03-07-2025 Left Ventricle: Mild ly reduced left ventricular systolic function. . Right Ventricle: Right ventricle size is normal. Normal systolic function. Technically difficult study. Left Ventricle Mildly reduced left ventricular systolic function. . Right Ventricle Right ventricle size is normal. Normal systolic function. Left Atrium Left atrium size is normal. Right Atrium Right atrium size is normal. Mitral Valve Mild (1+) regurgitation. No stenosis noted. Tricuspid Valve Trace regurgitation. Aortic Valve Trileaflet. Trace regurgitation. No stenosis. Pulmonic Valve Trace regurgitation. Pericardium The pericardium is normal. No pericardial effusion. Study Details Image quality: good. Images have been saved and databased. Images were obtained from the mid-esophageal, upper esophageal, transgastric, deep transgastric and descending thoracic view(s). Heart rate: 67 bpm. Blood pressure: 141/85 mmHg. The procedure, risks and alternatives were explained. Informed consent was obtained. KWAME probe number: [id number]. KWAME probe was inserted by the anesthesiologist with no difficulty. No topical anesthesic. No complications. KWAME probe was removed. No contrast was given. See anesthesia notes for medications given. Echo Additional Conclusions Technically difficult study.Findings discussed with the surgical team. CV CPACS HEMO US Heart TransesophagealOrde red By: Humble Espinoza on 03-07-2025 [facility]: XR CHEST 1 VIEWon 03-07-2025 XR CHEST 1 VIEW Patient Name: WALLACE TURK : 1965 Exam Date/Time: 03/07/2025 05:32 Procedure: XR CHEST 1 VIEW Ordering Provider: ROMERO ANDREW Reason For Exam: Shortness of breath Examination: Portable chest Indication: Shortness of breath Comparison: Previous day Findings: Cardiomegaly with median sternotomy changes. Mild left basilar infiltrate or atelectasis with left basilar chest tube. Right IJ sheath is in place. IMPRESSION: Impression: As above. Report Dictated on Electronically Signed By: Bird Wall MD Electronically Signed Date/Time: 03/07/2025 7:20 AM EDT Normal [facility] XR Chest Single viewon 03-07 Impression: As above. Report Dictated on Electronically Signed By: Bird Wall MD Electronically Signed Date/Time: 03/07/2025 7:20 AM EDT [facility] [employer] [facility] Patient Name: WALLACE TURK : 1965 Exam Date/Time: 03/07/2025 05:32 Procedure: XR CHEST 1 VIEW Ordering Provider: ROMERO ANDREW Reason For Exam: Shortness of breath Examination: Portable chest Indication: Shortness of breath Comparison: Previous day Findings: Cardiomegaly with median sternotomy changes. Mild left basilar infiltrate or atelectasis with left basilar chest tube. Right IJ sheath is in place. [facility] [employer] Bird Wall MD - 03/07/2025 Patient Name: WALLACE TURK : 1965 Exam Date/Time: 03/07/2025 05:32 Procedure: XR CHEST 1 VIEW Ordering Provider: ROMERO ANDREW Reason For Exam: Shortness of breath Examination: Portable chest Indication: Shortness of breath Comparison: Previous day Findings: Cardiomegaly with median sternotomy changes. Mild left basilar infiltrate or atelectasis with left basilar chest tube. Right IJ sheath is in place. IMPRESSION: Impression: As above. Report Dictated on Electronically Signed By: Bird Wall MD Electronically Signed Date/Time: 03/07/2025 7:20 AM EDT [facility] Radiology Study observation (narrative) [facility] XR Chest Single viewOrdered By: Bird Wall on 03-07-2025 [facility] Work Phone: BASIC METABOLIC PANELon 02-12 Anion gap [Moles/Vol] 7 mmol/L Normal 3-13 [facility] Comment on above: Performed By: #### L AB103, LAB15 ####Fibre Composite Technician: EDVIN HAYS ([id number])[facility])[address] [place] [address] Calcium [Mass/Vol] 8.4 mg/dL Normal 8.4-10.2 [facility] Comment on above: Performed By: #### L AB103, LAB15 ####Fibre Composite Technician: EDVIN HAYS ([id number])[facility] ([facility])[address] [place] [address] [place] Chloride [Moles/Vol] 108 mmol/L High 98-107 [facility] Comment on above: Performed By: #### L AB103, LAB15 ####Fibre Composite Technician: EDVIN HAYS ([id number])[facility] ([facility])[address] [place] [address] [place] CO2 [Moles/Vol] 24 mmol/L Normal 22-29 [facility] Comment on above: Performed By: #### L AB103, LAB15 ####Fibre Composite Technician: EDVIN HAYS ([id number])[facility] ([facility])[address] [place] [address] [place] Creatinine [Mass/Vol] 0.76 mg/dL Normal 0.72-1.25 [facility] Comment on above: Performed By: #### L AB103, LAB15 ####Fibre Composite Technician: EDVIN HAYS ([id number])[facility])[address] [place] [address] GLOMERULAR FILTRATION RATE ML/MIN/1.73 SQ M.PREDICTED >90.0 Normal >60.0 [facility] Comment on above: Result Comment: Calc ulation based on the Chronic Kidney Disease Epidemiology Collaboration (CKD-EPI) equation refit without adjustment for race Performed By: #### L AB103, LAB15 ####Fibre Composite Technician: EDVIN HAYS ([id number])[facility])[address] [place] [address] Glucose [Mass/Vol] 173 mg/dL High 74-100 [facility] Comment on above: Performed By: #### L AB103, LAB15 ####Fibre Composite Technician: EDVIN HAYS ([id number])[facility])[address] [place] [address] Potassium [Moles/Vol] 3.9 mmol/L Normal 3.5-5.1 [facility] Comment on above: Result Comment: [facility] potassium values may be up to 0.5 mmol/L lower than serum values. Performed By: #### L AB103, LAB15 ####Fibre Composite Technician: EDVIN HAYS ([id number])[facility] ([facility])[address] [place] [address] [place] Sodium [Moles/Vol] 139 mmol/L Normal 136-145 [facility] Comment on above: Performed By: #### L AB103, LAB15 ####Fibre Composite Technician: EDVIN HAYS ([id number])[facility])[address] [place] [address] [place] Urea nitrogen [Mass/Vol] 20 mg/dL Normal 9-23 [facility] Comment on above: Performed By: #### L AB103, LAB15 ####Fibre Composite Technician: EDVIN [id number])[facility])[address] [place] [address] Basic metabolic 1998 panelon 03-06-2025 Anion gap [Moles/Vol] 7 mmol/L 3 - 13 mmol/L [facility] Calcium [Mass/Vol] 8.4 mg/dL 8.4 - 10. 2 mg/dL [facility] Chloride [Moles/Vol] 108 mmol/L High 98 - 10 7 mmol/L [facility] CO2 [Moles/Vol] 24 mmol/L 22 - 29 mmol/L [facility] Creatinine [Mass/Vol] 0.76 mg/dL 0.72 - 1.25 mg/dL [facility] GFR/1.73 sq M.predicted (S/P/Bld) [Vol rate/Area] - PINF [facility] Comment on above: Calculation based on the Chronic Kidney Disease Epidemiology Collaboration (CKD-EPI) equation refit without adjustment for race Glucose [Mass/Vol] 173 mg/dL High 74 - 100 mg/dL [facility] Interpretation and review of laboratory results Abnormal [facility] Potassium [Moles/Vol] 3.9 mmol/L 3.5 - 5.1 mmol/L [facility] Comment on above: Plasma potassium norma ues may be up to 0.5 mmol/L lower than serum values. Sodium [Moles/Vol] 139 mmol/L 136 - 145 mmol/L [facility] Urea nitrogen [Mass/Vol] 20 mg/dL 9 - 23 mg/dL [facility] CBC (HEMOGRAM)on 03-06-2025 Erythrocyte distribution width (RBC) [Ratio] 13.7 % Normal 11.5-15.0 [facility] Comment on above: Performed By: #### L AB103, LAB15 #### Fibre Composite Technician: EDVIN HAYS ([id number]) [facility] ([facility] [address] [place] [address] Hematocrit (Bld) [Volume fraction] 31.5 % Low 40.0-52.0 [facility] Comment on above: Performed By: #### L AB103, LAB15 #### Fibre Composite Technician: EDVIN HAYS ([id number]) [facility] ([facility] [address] [place] [address] Hemoglobin (Bld) [Mass/Vol] 10.2 g/dL Low 13.0-18.0 [facility] Comment on above: Performed By: #### L AB103, LAB15 #### Fibre Composite Technician: EDVIN HAYS ([id number]) [facility]) [address] [place] [address] IPF 4 Normal [facility] Comment on above: Performed By: #### L AB103, LAB15 #### Fibre Composite Technician: EDVIN HAYS ([id number]) [facility] ([facility]) [address] [place] [address] MCH (RBC) [Entitic mass] 28.8 pg Normal 26.0-34.0 [facility] Comment on above: Performed By: #### L AB103, LAB15 #### Fibre Composite Technician: EDVIN HAYS ([id number]) [facility]) [address] [place] [address] MCHC 32.4 % Normal 30.5-36.0 [facility] Comment on above: Performed By: #### L AB103, LAB15 #### Fibre Composite Technician: EDVIN HAYS ([id number]) [facility] ([facility]) [address] [place] [address] MCV (RBC) [Entitic vol] 89.0 fL Normal 77.0-99.0 [facility] Comment on above: Performed By: #### L AB103, LAB15 #### Fibre Composite Technician: DEVIN HAYS ([id number]) [facility] ([facility]) [address] [place] [address] Platelet mean volume (Bld) [Entitic vol] 11.3 fL Normal 9.0-12.7 [facility] Comment on above: Performed By: #### L AB103, LAB15 #### Fibre Composite Technician: EDVIN HAYS ([id number]) [facility]) [address] [place] [address] Platelets (Bld) [#/Vol] 115 10*3/uL Low 140-440 [facility] Comment on above: Performed By: #### L AB103, LAB15 #### Fibre Composite Technician: EDVIN [id number]) [facility] ([facility]) [address] [place] [address] RBC (Bld) [#/Vol] 3.54 10*6/uL Low 4.40-5.90 [facility] Comment on above: Performed By: #### L AB103, LAB15 #### Fibre Composite Technician: EDVIN HAYS ([id number]) [facility] ([facility]) [address] [place] [address] WBC (Bld) [#/Vol] 6.2 10*3/uL Normal 3.6-10.7 [facility] Comment on above: Performed By: #### L AB103, LAB15 #### Fibre Composite Technician: EDVIN HAYS ([id number]) [facility] ([facility]) [address] [place] [address] CBC panel Auto (Bld)on 03-06 Erythrocyte distribution width (RBC) [Ratio] 13.7 % 11.5 - 15.0 % [facility] Hematocrit (Bld) [Volume fraction] 31.5 % Low 40.0 - 52.0 % [facility] Hemoglobin (Bld) [Mass/Vol] 10.2 g/dL Low 13.0 - 18.0 g/dL [facility] Interpretation and review of laboratory results Abnormal [facility] IPF 4 [facility] MCH (RBC) [Entitic mass] 28.8 pg 26. 0 - 34.0 pg [facility] MCHC (RBC) [Mass/Vol] 32.4 % 30.5 - 36.0 % [facility] MCV (RBC) [Entitic vol] 89 fL 77.0 - 99.0 fL [facility] Platelet mean volume (Bld) [Entitic vol] 11.3 fL 9.0 - 12.7 fL [facility] Platelets (Bld) [#/Vol] 115 10*3/uL Low 140 - 440 10*3/uL [facility] RBC (Bld) [#/Vol] 3.54 10*6/uL Low 4.40 - 5.90 10*6/uL [facility] WBC (Bld) [#/Vol] 6.2 10*3/uL 3.6 - 10.7 10*3/uL [facility] ECG 12-LEADon 03-06-2025 ECG 12-LEAD IMPRESSION: Sinus rhythm Borderline T wave abnormalities Electronically Signed On 03-06-2025 08:54:40 EDT by Alfred Lara [facility] Laboratory - Chemistry and C hemistry - challengeon 03-06-2025 Glucose [Mass/Vol] 199 mg/dL High 70 - 100 mg/dL [facility] Glucose [Mass/Vol] 230 mg/dL High 70 - 100 mg/dL [facility] Glucose [Mass/Vol] 208 mg/dL High 70 - 100 mg/dL [facility] Glucose [Mass/Vol] 150 mg/dL High 70 - 100 mg/dL [facility] Magnesium [Mass/Vol] 2.1 mg/dL 1.6 - 2 .6 mg/dL [facility] MAGNESIUMon 03-06-2025 Magnesium [Mass/Vol] 2.1 mg/dL Normal 1.6-2.6 [facility] Comment on above: Result Comment: GEORGE Hernadez COMMENTS: Higher values can be expected in females during menses. Performed By: #### L AB103, LAB15 ####Fibre Composite Technician: EDVIN HAYS ([id number])[facility] ([address] Magnesium [Mass/Vol]on 03-06 Interpretation and review of laboratory results Normal [facility] Higher values can be expected in females during menses. [facility] No Panel Informationon 03-06 Interpretation and review of laboratory results Abnormal [facility] Performed by: [address] [address] CLIA ID: [id number] [facility] Interpretation and review of laboratory results Abnormal [facility] Performed by: [address] [address] CLIA ID: [id number] [facility] Interpretation and review of laboratory results Abnormal [facility] Performed by: [address] [address] CLIA ID: [id number] [facility] P [place] 41 degrees [facility] HI Interval 158 ms [facility] QRS [place] -8 degrees [facility] QRSD Interval 110 ms [facility] QT Interval 387 ms [facility] QTC Interval 446 ms [facility] T Wave [place] 50 degrees [facility] Sinus rhythm Borderline T wave abnormalities Electronically Signed On 03-06-2025 08:54:40 EDT by Alfred Connelly MD - 03/06/2025 IMPRESSION: Sinus rhythm Borderline T wave abnormalities Electronically Signed On 03-06-2025 08:54:40 EDT by Alfred Wallace [facility] Interpretation and review of laboratory results Abnormal [facility] Performed by: [facility], [address] [place] [address], [place] [address] CLIA ID: [id number] [facility] Progress Noteon 03-06-2025 Progress Note ----- ----- Attestation signed by Kobi Guerrero MD at 03/06/2025 1:35 PM I have personally performed a face to face diagnostic evaluation on this patient today on 03/06/25. Labs, imaging studies, and electronic medical record notes on [employer] have been reviewed by me. This note documented and discussed by the []chief supply chain officer []Fellow [x] NOELLE reflects my history, exam and medical decision making. I have reviewed and agree with the care plan. Changes were made in the orders as necessary. ROS documentation was reviewed and negative unless otherwise stated in the HPI. My history, exam, assessment and plan are as follows: Some elements copied from my notes, which have been updated where appropriate. All reflect current medical decision making from 03/06/25. Physical Exam listed was completed in entirely on 03/06/25 and is unchanged except where noted. Pt no longer critical care Time spent for coordination of care: a subsequent visit: 25 minutes (Level I) Chief Complaint: Coronary artery disease of [place] artery of [place] heart with stable angina pectoris Additional pertinent interval history, ROS, and physical exam findings: In chair, resp unlabored +flatus Assessment and Plan: mvCAD 03/04 s/p CABG x 3 Anemia, thrombocytopenia expected post op HTN, HLD DM2 ASA, statin, b-liliana Status: Stable Disposition: Remain in ICU until discharge ----- Cardiothoracic Surgery/CCM Progress Note PATIENT NAME: Wallace Turk DATE: 03/06/25 HPI: 59-year-old male who was seen in the OP setting for CABG evaluation. Patient has history of CAD status post PCI of the LAD in May 2012, hypertension, type 2 diabetes, and hyperlipidemia. Recently saw cardiology January 19, 2025 with complaints of chest discomfort with exertion. An outpatient cath was scheduled and he underwent cardiac cath on 02/07/2025 which demonstrated severe triple-vessel CAD with LV dysfunction. Revascularization was discussed and patient consented he was taken to the operating room on 03/04/[address]. Surgery/Procedure: 03/04/25: s/p CABGx3 (MEADE-LAD, SVG-OM2, SVG-diag2), KWAME, LEVH with Dr. Lane Interval History: 03/06/25, POD# 02. Afebrile, NSR on tele, BP stable, on RA. Pain better controlled today. Walking unit with nursing. No major issues. Objective: CT output cc/24hrs: 130 UO cc/24hrs: 1,025 Vitals: BP: 137/83, MAP (mmHg): 92, BP Method: Automatic Heart Rate: 80 Resp: 16 Temp: 36.1 ?C (97 ?F), Temp Source: Temporal BMI (Calculated): 29.78 BMP: Recent Labs 03/04/25 1131 03/04/25 1233 03/04/25 1547 03/05/25 0018 03/06/25 0005 NA 140 < > 138 137 139 K 3.3* < > 4.0 3.9 3.9 CL 112* < > 110* 110* 108* CO2 22 < > 19* 21* 24 BUN 18 < > 15 12 20 CREATININE 0.71* < > 0.67* 0.71* 0.76 CALCIUM 7.1* < > 8.1* 8.2* 8.4 MG 2.5 -- 1.9 1.8 2.1 PHOS 3.4 -- -- -- -- < > = values in this interval not displayed. CBC: Recent Labs 03/04/25 1241 03/05/25 0018 03/06/25 0005 WBC 8.7 5.8 6.2 HGB 11.4* 10.4* 10.2* HCT 33.7* 31.1* 31.5* PLT 114* 119* 115* MCV 86.2 86.4 89.0 RDW 13.4 13.4 13.7 INR: Recent Labs 03/04/25 1131 03/04/25 1241 03/05/25 0018 INR 1.3* 1.2* 1.1 Physical Exam Vitals reviewed. Constitutional: General: He is not in acute distress. Appearance: He is not ill-appearing or diaphoretic. Neck: Comments: Central line. Cardiovascular: Rate and Rhythm: Normal rate and regular rhythm. Pulses: Normal pulses. Heart sounds: No murmur heard. Pulmonary: Effort: Pulmonary effort is normal. Breath sounds: No wheezing, rhonchi or rales. Abdominal: General: There is distension. Palpations: Abdomen is soft. Tenderness: There is no abdominal tenderness. Comments: Chest tubes. Musculoskeletal: General: Swelling present. Skin: General: Skin is warm and dry. Capillary Refill: Capillary refill takes less than 2 seconds. Findings: Bruising present. Comments: Surgical incisions well approximated, no redness, warmth or drainage noted. Neurological: General: No focal deficit present. Mental Status: He is alert. Assessment: MVCAD s/p CABGx3 HTN T2DM HLD Post operative Pulm Management: Normal Post-operative Course Post-operative Atrial Fibrillation: []Yes [x] No Acute blood loss anemia/consumptive thrombocytopenia Plan: Patient status: ICU Continue aspirin and statin. Increase BB today to 25mg BID. Lasix 40mg IV daily. Continue toradol and robaxin. Monitor chest tubes, likely remain in place today. Bowel regimen +simethicone and reglan. Out of bed for meals, progressive mobility. Wean O2 as able, goal SpO2>92%. Daily labs and CXR. GI prophy: PO protonix DVT prophy: (more content not included)... Normal [facility] Progress Note Department of Dental Scheduling Coordinator al Medicine Division of Endocrinology, Diabetes, & Metabolism Endocrinology Note Patient Name: Wallace Turk : 1965 AGE: 59 y.o. Room/Bed: T1-123/T1-123 A Admission Date: 03/04/2025 Visit Date: 03/06/2025 Reason for Endocrine Consult: post heart Provider/Team Requesting Consult: cts PCP: No primary care provider on file. Outpt Incident Response Consultant: Yes Ellis Marquez ASSESSMENT: Type 2 diabetes with hyperglycemia with long-term insulin use Type 2 diabetes with cardiac complication Overweight Body mass index is 28.94 kg/m?. PLAN: Blood glucose readings are reasonable so far Continue Lantus 18 units every morning Continue Humalog 6 units before meals with medium dose correction Obtain a blood glucose readings before meals and at bedtime Carb controlled diet In the future to revisit the option of incretin based therapy and/or SGLT2 I I counseled patient about the rationale of using such medications ICU goal <180 GMF goal <150 POCT BG ACHS-q1 on insulin gtt Hypoglycemia management per protocol Carb controlled diet ANTICIPATED ENDOCRINE HOME GOING RECOMMENDATIONS: Optimized for Discharge from Endocrine standpoint: No Home Going Endocrine Rx Recommendations-- Lantus pens current dose Humalog pens current dose Clara pen needles [id number] Dexcom sensors Outpt Follow Up-- 05-27 Richard Marquez SUBJECTIVE/HPI: CHIEF COMPLAINT: S/p CABGx3 Patient known to endcrine team outpatient for DM2- see prior notes. Recently started on home insulin outpatient. No noted hx of thyroid disease. Interval history 03/06: Denies nausea or vomiting Tolerating most of his diet Interval history 03/05 : Patient was extubated Off pressors He has been on Lantus 12 units daily and Humalog 4 units before meals Has Dexcom G7 Time in range 14% in the last 2 weeks there is improvement in his blood glucose readings last few days before surgery Denies nausea or vomiting Interval events: BGL below Stable currently on insulin gtt VSS, NPO Remains intubated/ sedated at this time Will clarify history once extubated- tomorrow Sees endocrine outpatient - on home insulin pens CT in place On propofol Pressor support as needed Spoke with team Type of DM: 2 Onset of DM: 2013 Home DM Medication Regimen: dexcom g7, lantus 12, humalog -per chart DM control (last A1c/glucose data): Lab Results Component Value Date HGBA1C 11.7 (A) 02/24/2025 Glucose Date/Time Value Ref Range Status 03/06/2025 06:33 AM 150 (H) 70 - 100 mg/dL Final 03/05/2025 09:08 PM 197 (H) 70 - 100 mg/dL Final 03/05/2025 05:00 PM 215 (H) 70 - 100 mg/dL Final 03/05/2025 12:33 PM 152 (H) 70 - 100 mg/dL Final 03/05/2025 11:03 AM 199 (H) 70 - 100 mg/dL Final 03/05/2025 09:09 AM 161 (H) 70 - 100 mg/dL Final Review of Systems ROS negative except for those mentioned in HPI. OBJECTIVE: Vitals: 03/06/25 0700 03/06/25 0800 03/06/25 0900 03/06/25 1000 BP: 142/80 133/78 136/72 137/83 BP Location: Right arm Patient Position: Sitting Pulse: 80 84 79 80 Resp: 16 Temp: 36.1 ?C (97 ?F) TempSrc: Temporal SpO2: 95% 92% 93% 96% Weight: Height: Physical Exam Vitals and nursing note reviewed. Constitutional: General: He is not in acute distress. Appearance: He is overweight. He is not toxic-appearing. Interventions: He is sedated. He is not intubated. HENT: Mouth/Throat: Mouth: Mucous membranes are moist. Pulmonary: Effort: Pulmonary effort is normal. No respiratory distress. He is not intubated. Abdominal: Tenderness: There is no guarding. Skin: General: Skin is warm. Comments: Intact incision midline Neurological: Mental Status: He is oriented to person, place, and time. 24 hour intake/output: Intake/Output Summary (Last 24 hours) at 03/06/2025 1213 Last data filed at 03/06/2025 1044 Gross per 24 hour Intake 1920 ml Output 1750 ml Net 170 ml Diet: Adult diet Regular; 5 carb choices (75 gm/meal) Medications (as per EMR): HomeMeds: Current Outpatient Medications Medication Instructions Alcohol Swabs pads For daily blood sugar monitoring 4 times daily for Continuous Glucose Monitor failure aspirin 81 mg, Daily atorvastatin (LIPITOR) 40 mg, Daily Blood Glucose Monitoring Suppl (True Metrix Meter) w/Device kit 1 each, Does not apply, 4 times daily, For daily blood sugar monitoring 4 times daily for Continuous Glucose Monitor failure Continuous Glucose Sensor (Dexcom G7 Sensor) misc Replace with a new sensor every 10 days. glucagon 1 mg, SubCUTAneous, Once PRN glucose blood (True Metrix Blood Glucose Test) test strip For daily blood sugar monitoring 4 times daily for Continuous Glucose Monitor failure insulin glargine (LANTUS) 12 Units, SubCUTAneous, Nightly insulin lispro (HUMALOG) 4 Units, SubCUTAneous, 3 times daily before meals insulin pen needle 32G X 4 MM misc 4 times daily Lancets 33G misc 1 each, Does n (more content not included)... Normal [facility] Vital signson 03-06-2025 Heart rate 80 /min bpm [facility] XR CHEST 1 VIEWon 03-06-2025 XR CHEST 1 VIEW Patient Name: WALLACE TURK : 1965 Exam Date/Time: 03/06/2025 05:15 Procedure: XR CHEST 1 VIEW Ordering Provider: ROMERO ANDREW Reason For Exam: Shortness of breath CHEST - PORTABLE: CLINICAL INDICATION: Shortness of breath. TECHNIQUE: Portable AP COMPARISON: One day ago FINDINGS: Tubes, lines and devices: Right jugular venous catheter and left chest tube along with possible mediastinal drain Heart/Mediastinum: Unchanged Lungs/Pleura: Atelectasis at the left lung base. No other consolidation. Costophrenic angles are sharp. IMPRESSION: Left basilar atelectasis. No significant change Report Dictated on Electronically Signed By: Oswald Benson MD Electronically Signed Date/Time: 03/06/2025 12:27 PM EDT Normal [facility] XR Chest Single viewon 03-06 Left basilar atelect asis. No significant change Report Dictated on Electronically Signed By: Oswald Benson MD Electronically Signed Date/Time: 03/06/2025 12:27 PM EDT [facility] Patient Name: WALLACE TURK : 1965 Exam Date/Time: 03/06/2025 05:15 Procedure: XR CHEST 1 VIEW Ordering Provider: ROMERO ANDREW Reason For Exam: Shortness of breath CHEST - PORTABLE: CLINICAL INDICATION: Shortness of breath. TECHNIQUE: Portable AP COMPARISON: One day ago FINDINGS: Tubes, lines and devices: Right jugular venous catheter and left chest tube along with possible mediastinal drain Heart/Mediastinum: Unchanged Lungs/Pleura: Atelectasis at the left lung base. No other consolidation. Costophrenic angles are sharp. [facility] Oswald Benson MD - 03/06/2025 Patient Name: WALLACE TURK : 1965 Exam Date/Time: 03/06/2025 05:15 Procedure: XR CHEST 1 VIEW Ordering Provider: ROMERO ANDREW Reason For Exam: Shortness of breath CHEST - PORTABLE: CLINICAL INDICATION: Shortness of breath. TECHNIQUE: Portable AP COMPARISON: One day ago FINDINGS: Tubes, lines and devices: Right jugular venous catheter and left chest tube along with possible mediastinal drain Heart/Mediastinum: Unchanged Lungs/Pleura: Atelectasis at the left lung base. No other consolidation. Costophrenic angles are sharp. IMPRESSION: Left basilar atelectasis. No significant change Report Dictated on Electronically Signed By: Oswald Benson MD Electronically Signed Date/Time: 03/06/2025 12:27 PM EDT [facility] Radiology Study observation (narrative) [facility] XR Chest Single viewOrdered By: Oswald Benson on 03-06-2025 [employer] Work Phone: BASIC METABOLIC PANELon 02-12 Anion gap [Moles/Vol] 6 mmol/L Normal 3-13 [facility] Comment on above: Performed By: #### L AB103, LAB15 ####Fibre Composite Technician: EDVIN HAYS ([id number])[facility] ([facility])[address] [place] [address] Calcium [Mass/Vol] 8.2 mg/dL Low 8.4-10.2 [facility] Comment on above: Performed By: #### L AB103, LAB15 ####Fibre Composite Technician: EDVIN HAYS ([id number])[facility] ([facility] [place] [address] Chloride [Moles/Vol] 110 mmol/L High 98-107 [facility] Comment on above: Performed By: #### L AB103, LAB15 ####Fibre Composite Technician: EDVIN HAYS ([id number])[facility] ([facility] [place] [address] CO2 [Moles/Vol] 21 mmol/L Low 22-29 [facility] Comment on above: Performed By: #### L AB103, LAB15 ####Fibre Composite Technician: EDVIN HAYS ([id number])[facility] ([facility])[address] [place] [address] Creatinine [Mass/Vol] 0.71 mg/dL Low 0.72-1.25 [facility] Comment on above: Performed By: #### L AB103, LAB15 ####Fibre Composite Technician: EDVIN HAYS ([id number])[facility])[address] [place] [address] GLOMERULAR FILTRATION RATE ML/MIN/1.73 SQ M.PREDICTED >90.0 Normal >60.0 [facility] Comment on above: Result Comment: Calc ulation based on the Chronic Kidney Disease Epidemiology Collaboration (CKD-EPI) equation refit without adjustment for race Performed By: #### L AB103, LAB15 ####Fibre Composite Technician: EDVIN HAYS ([id number])[facility] ([facility])[address] [place] [address] [place] Glucose [Mass/Vol] 112 mg/dL High 74-100 [facility] Comment on above: Performed By: #### L AB103, LAB15 ####Fibre Composite Technician: EDVIN HAYS ([id number])[facility])[address] [place] [address] Potassium [Moles/Vol] 3.9 mmol/L Normal 3.5-5.1 [facility] Comment on above: Result Comment: [facility] potassium values may be up to 0.5 mmol/L lower than serum values. Performed By: #### L AB103, LAB15 ####Fibre Composite Technician: EDVIN HAYS ([id number])[facility])[address] [place] [address] Sodium [Moles/Vol] 137 mmol/L Normal 136-145 [facility] Comment on above: Performed By: #### L AB103, LAB15 ####Fibre Composite Technician: EDVIN HAYS ([id number])[facility] ([facility])[address] [place] [address] Urea nitrogen [Mass/Vol] 12 mg/dL Normal 9-23 [facility] Comment on above: Performed By: #### L AB103, LAB15 ####Fibre Composite Technician: EDVIN HAYS ([id number])[facility])[address] [place] [address] Basic metabolic 1998 panelon 03-05-2025 Anion gap [Moles/Vol] 6 mmol/L 3 - 13 mmol/L [facility] Calcium [Mass/Vol] 8.2 mg/dL Low 8.4 - 10. 2 mg/dL [facility] Chloride [Moles/Vol] 110 mmol/L High 98 - 10 7 mmol/L [facility] CO2 [Moles/Vol] 21 mmol/L Low 22 - 29 mmol/L [facility] Creatinine [Mass/Vol] 0.71 mg/dL Low 0.72 - 1.25 mg/dL [facility] GFR/1.73 sq M.predicted (S/P/Bld) [Vol rate/Area] - PINF [facility] Comment on above: Calculation based on the Chronic Kidney Disease Epidemiology Collaboration (CKD-EPI) equation refit without adjustment for race Glucose [Mass/Vol] 112 mg/dL High 74 - 100 mg/dL [facility] Interpretation and review of laboratory results Abnormal [facility] Potassium [Moles/Vol] 3.9 mmol/L 3.5 - 5.1 mmol/L [facility] Comment on above: Plasma potassium norma ues may be up to 0.5 mmol/L lower than serum values. Sodium [Moles/Vol] 137 mmol/L 136 - 145 mmol/L [facility] Urea nitrogen [Mass/Vol] 12 mg/dL 9 - 23 mg/dL [facility] CBC (HEMOGRAM)on 03-05-2025 Erythrocyte distribution width (RBC) [Ratio] 13.4 % Normal 11.5-15.0 [facility] Comment on above: Performed By: #### L AB294 ####Fibre Composite Technician: EDVIN HAYS ([id number])[address] Hematocrit (Bld) [Volume fraction] 31.1 % Low 40.0-52.0 [facility] Comment on above: Performed By: #### L AB294 ####Fibre Composite Technician: EDVIN HAYS ([id number])[address] Hemoglobin (Bld) [Mass/Vol] 10.4 g/dL Low 13.0-18.0 [facility] Comment on above: Performed By: #### L AB294 ####Fibre Composite Technician: EDVIN HAYS ([id number])[place] [address] [place] IPF 4 Normal [facility] Comment on above: Performed By: #### L AB294 ####Fibre Composite Technician: EDVIN [id number])[address] MCH (RBC) [Entitic mass] 28.9 pg Normal 26.0-34.0 [facility] Comment on above: Performed By: #### L AB294 ####Fibre Composite Technician: EDVIN [id number])[facility] ([facility])[address] [place] [address] MCHC 33.4 % Normal 30.5-36.0 [facility] Comment on above: Performed By: #### L AB294 ####Fibre Composite Technician: EDVIN HAYS ([id number])[facility] ([facility])[address] [place] [address] MCV (RBC) [Entitic vol] 86.4 fL Normal 77.0-99.0 [facility] Comment on above: Performed By: #### L AB294 ####Fibre Composite Technician: EDVIN HAYS ([id number])[facility])[address] [place] [address] Platelet mean volume (Bld) [Entitic vol] 10.9 fL Normal 9.0-12.7 [facility] Comment on above: Performed By: #### L AB294 ####Fibre Composite Technician: EDVIN HAYS ([id number])[facility] ([facility])[address] [place] [address] Platelets (Bld) [#/Vol] 119 10*3/uL Low 140-440 [facility] Comment on above: Performed By: #### L AB294 ####Fibre Composite Technician: EDVIN HAYS ([id number])[facility] ([facility])[address] [place] [address] RBC (Bld) [#/Vol] 3.60 10*6/uL Low 4.40-5.90 [facility] Comment on above: Performed By: #### L AB294 ####Fibre Composite Technician: EDVIN HAYS ([id number])[facility] ([facility])[address] [place] [address] WBC (Bld) [#/Vol] 5.8 10*3/uL Normal 3.6-10.7 [facility] Comment on above: Performed By: #### L AB294 ####Fibre Composite Technician: EDVIN HAYS ([id number])[facility] ([facility])[address] [place] [address] CBC panel Auto (Bld)on 03-05 Erythrocyte distribution width (RBC) [Ratio] 13.4 % 11.5 - 15.0 % [facility] Hematocrit (Bld) [Volume fraction] 31.1 % Low 40.0 - 52.0 % [facility] Hemoglobin (Bld) [Mass/Vol] 10.4 g/dL Low 13.0 - 18.0 g/dL [facility] Interpretation and review of laboratory results Abnormal [facility] IPF 4 [facility] MCH (RBC) [Entitic mass] 28.9 pg 26. 0 - 34.0 pg [facility] MCHC (RBC) [Mass/Vol] 33.4 % 30.5 - 36.0 % [facility] MCV (RBC) [Entitic vol] 86.4 fL 77.0 - 99.0 fL [facility] Platelet mean volume (Bld) [Entitic vol] 10.9 fL 9.0 - 12.7 fL [facility] Platelets (Bld) [#/Vol] 119 10*3/uL Low 140 - 440 10*3/uL [facility] RBC (Bld) [#/Vol] 3.6 10*6/uL Low 4.40 - 5.90 10*6/uL [facility] WBC (Bld) [#/Vol] 5.8 10*3/uL 3.6 - 10.7 10*3/uL [facility] ECG 12-LEADon 03-05-2025 ECG 12-LEAD IMPRESSION: Sinus rhythm Borderline prolonged QT interval Electronically Signed On 03-05-2025 08:39:15 EDT by Alfred Wallace Normal [facility] ECG 12-LEAD IMPRESSION: Sinus rhythm Nonspecific T wave changes Electronically Signed On 03-05-2025 08:28:02 EDT by Alfred Wallace Normal [facility] Laboratory - Chemistry and C hemistry - challengeon 03-05-2025 Glucose [Mass/Vol] 197 mg/dL High 70 - 100 mg/dL [facility] Glucose [Mass/Vol] 215 mg/dL High 70 - 100 mg/dL [facility] Glucose [Mass/Vol] 152 mg/dL High 70 - 100 mg/dL [facility] Glucose [Mass/Vol] 199 mg/dL High 70 - 100 mg/dL [facility] Glucose [Mass/Vol] 161 mg/dL High 70 - 100 mg/dL [facility] Glucose [Mass/Vol] 146 mg/dL High 70 - 100 mg/dL [facility] Glucose [Mass/Vol] 139 mg/dL High 70 - 100 mg/dL [facility] Glucose [Mass/Vol] 130 mg/dL High 70 - 100 mg/dL [facility] Glucose [Mass/Vol] 124 mg/dL High 70 - 100 mg/dL [facility] Glucose [Mass/Vol] 116 mg/dL High 70 - 100 mg/dL [facility] Glucose [Mass/Vol] 136 mg/dL High 70 - 100 mg/dL [facility] Glucose [Mass/Vol] 111 mg/dL High 70 - 100 mg/dL [facility] Glucose [Mass/Vol] 123 mg/dL High 70 - 100 mg/dL [facility] Magnesium [Mass/Vol] 1.8 mg/dL 1.6 - 2 .6 mg/dL [facility] Glucose [Mass/Vol] 117 mg/dL High 70 - 100 mg/dL [facility] Laboratory - Coagulationon 0 03-05-2025 aPTT Coag (PPP) [Time] 30.3 s 20.0 - 30.5 s [facility] INR Coag (PPP) [Relative time] 1.1 {INR} 0.9 - 1.1 [facility] Comment on above: Recommended Anticoag ulant Therapy: SEE BELOW ----- INR of 2.0 - 3.0 : - Prophylaxis of Venous Thrombosis (high-risk surgery) - Treatment of Venous Thrombosis - Treatment of Pulmonary Embolism (Includes tissue heart valves, Acute Myocardial Infarction to prevent systemic embolism, Valvular Heart Disease, and Atrial Fibrillation) ----- INR of 2.5 - 3.5 : - Mechanical Prosthetic Valves (high risk) - If oral anticoagulant therapy is used to prevent Myocardial Infarction PT Coag (Bld) [Time] 11.9 s 9.0 - 1 2.0 s [facility] MAGNESIUMon 03-05-2025 Magnesium [Mass/Vol] 1.8 mg/dL Normal 1.6-2.6 [facility] Comment on above: Result Comment: GEORGE Hernadez COMMENTS: Higher values can be expected in females during menses. Performed By: #### L AB103, LAB15 ####Fibre Composite Technician: EDVIN HAYS ([id number])[facility] ([facility])[address] [place] [address] [place] Magnesium [Mass/Vol]on 03-05 Interpretation and review of laboratory results Normal [facility] Higher values can be expected in females during menses. [facility] No Panel Informationon 03-05 Interpretation and review of laboratory results Abnormal [facility] Performed by: [facility], [address] [place] [address] CLIA ID: [id number] [facility] Interpretation and review of laboratory results Abnormal [facility] Performed by: [facility], [address] [place] [address] CLIA ID: [id number] [facility] Interpretation and review of laboratory results Abnormal [facility] Performed by: [facility], [address] [place] [address] CLIA ID: [id number] [facility] Interpretation and review of laboratory results Abnormal [facility] Performed by: [address] [address] CLIA ID: [id number] [facility] Interpretation and review of laboratory results Abnormal [facility] Performed by: [facility], [address] [place] [address] CLIA ID: [id number] [facility] Sinus rhythm Borderline prolonged QT interval Electronically Signed On 03-05-2025 08:39:15 EDT by Alfred Connelly MD - 03/05/2025 IMPRESSION: Sinus rhythm Borderline prolonged QT interval Electronically Signed On 03-05-2025 08:39:15 EDT by Alfred Wallace [facility] P [place] 41 degrees [facility] HI Interval 168 ms [facility] QRS [place] 10 degrees [facility] QRSD Interval 103 ms [facility] QT Interval 375 ms [facility] QTC Interval 451 ms [facility] T Wave [place] 48 degrees [facility] Sinus rhythm Nonspecific T wave changes Electronically Signed On 03-05-2025 08:28:02 EDT by Alfred Connelly MD - 03/05/2025 IMPRESSION: Sinus rhythm Nonspecific T wave changes Electronically Signed On 03-05-2025 08:28:02 EDT by Alfred Wallace [facility] Interpretation and review of laboratory results Abnormal [facility] Performed by: [facility], [address] [place] [address], [place] [address] CLIA ID: [id number] [facility] Interpretation and review of laboratory results Abnormal [facility] Performed by: [facility], [address] [place] [address], [place] [address] CLIA ID: [id number] [facility] Interpretation and review of laboratory results Abnormal [facility] Performed by: [facility], [address] [place] [address], [place] [address] CLIA ID: [id number] [facility] Interpretation and review of laboratory results Abnormal [facility] Performed by: [facility], [address] [place] [address], [place] [address] CLIA ID: [id number] [facility] Interpretation and review of laboratory results Abnormal [facility] Performed by: [facility], [address] [place] [address], [place] [address] CLIA ID: [id number] [facility] Interpretation and review of laboratory results Abnormal [facility] Performed by: [address], [place] [address] CLIA ID: [id number] [facility] Interpretation and review of laboratory results Abnormal [facility] Performed by: [address], [place] [address] CLIA ID: [id number] [facility] Interpretation and review of laboratory results Abnormal [facility] Performed by: [facility], [address] [place] [address], [place] [address] CLIA ID: [id number] [facility] Interpretation and review of laboratory results Normal [facility] Interpretation and review of laboratory results Abnormal [facility] Performed by: [address], [place] [address] CLIA ID: [id number] [facility] No Panel InformationOrdered By: Alfred Wallace on 03-05-2025 P [place] 76 degrees [facility] Work Phone: HI Interval 197 ms [facility] Work Phone: QRS [place] 80 degrees [facility] Work Phone: QRSD Interval 113 ms [facility] Work Phone: QT Interval 476 ms [facility] Work Phone: [phone] QTC Interval 495 ms [facility] Work Phone: T Wave [place] 38 degrees [facility] Work Phone: [facility] Work Phone: PROTIME AND APTTon aPTT Coag (Bld) [Time] 30.3 s Normal 20.0-30.5 [facility] Comment on above: Performed By: #### L CANDY, LAB15 #### Fibre Composite Technician: EDVIN HAYS ([id number]) [facility] [address] [place] [address] INR Coag (PPP) [Relative time] 1.1 {INR} Normal 0.9-1.1 [facility] Comment on above: Result Comment: Danny mmended Anticoagulant Therapy: SEE BELOW ----- INR of 2.0 - 3.0 : - Prophylaxis of Venous Thrombosis (high-risk surgery) - Treatment of Venous Thrombosis - Treatment of Pulmonary Embolism (Includes tissue heart valves, Acute Myocardial Infarction to prevent systemic embolism, Valvular Heart Disease, and Atrial Fibrillation) ----- INR of 2.5 - 3.5 : - Mechanical Prosthetic Valves (high risk) - If oral anticoagulant therapy is used to prevent Myocardial Infarction Performed By: #### Vicente GUPTA, [id number] #### Fibre Composite Technician: EDVIN HAYS ([id number]) [facility] [address] [place] [address] PT Coag (PPP) [Time] 11.9 s Normal 9.0-12.0 [facility] Comment on above: Performed By: #### L 103, LAB15 #### Fibre Composite Technician: EDVIN HAYS ([id number]) [facility] [address] [place] [address] Progress Noteon 03-05-2025 Progress Note Department of Dental Scheduling Coordinator al Medicine Division of Endocrinology, Diabetes, & Metabolism Endocrinology Note Patient Name: Wallace Turk : 1965 AGE: 59 y.o. Room/Bed: T1-123/T1-123 A Admission Date: 03/04/2025 Visit Date: 03/05/2025 Reason for Endocrine Consult: post heart Provider/Team Requesting Consult: cts PCP: No primary care provider on file. Outpt Incident Response Consultant: Yes Ellis Marquez ASSESSMENT: Type 2 diabetes with hyperglycemia with long-term insulin use Type 2 diabetes with cardiac complication Overweight Body mass index is 28.94 kg/m?. PLAN: Requirements 1.5 to 2 units/h Recommend to give Lantus 18 units and discontinue insulin drip after 1 hr Then start Lantus 18 units every morning Start Humalog 6 units before meals with medium dose correction Obtain a blood glucose readings before meals and at bedtime Carb controlled diet In the future to revisit the option of incretin based therapy and/or SGLT2 I Discussed with nurse at bedside ICU goal <180 GMF goal <150 POCT BG ACHS-q1 on insulin gtt Hypoglycemia management per protocol Carb controlled diet ANTICIPATED ENDOCRINE HOME GOING RECOMMENDATIONS: Optimized for Discharge from Endocrine standpoint: No Home Going Endocrine Rx Recommendations-- Lantus pens current dose Humalog pens current dose Clara pen needles [id number] Dexcom sensors Outpt Follow Up-- 05-27 Richard Marquez SUBJECTIVE/HPI: CHIEF COMPLAINT: S/p CABGx3 Patient known to endcrine team outpatient for DM2- see prior notes. Recently started on home insulin outpatient. No noted hx of thyroid disease. Interval history 03/05 : Patient was extubated Off pressors He has been on Lantus 12 units daily and Humalog 4 units before meals Has Dexcom G7 Time in range 14% in the last 2 weeks there is improvement in his blood glucose readings last few days before surgery Denies nausea or vomiting Interval events: BGL below Stable currently on insulin gtt VSS, NPO Remains intubated/ sedated at this time Will clarify history once extubated- tomorrow Sees endocrine outpatient - on home insulin pens CT in place On propofol Pressor support as needed Spoke with team Type of DM: 2 Onset of DM: 2013 Home DM Medication Regimen: dexcom g7, lantus 12, humalog //4-per chart DM control (last A1c/glucose data): Lab Results Component Value Date HGBA1C 11.7 (A) 02/24/2025 Glucose Date/Time Value Ref Range Status 03/05/2025 09:09 AM 161 (H) 70 - 100 mg/dL Final 03/05/2025 08:04 AM 146 (H) 70 - 100 mg/dL Final 03/05/2025 07:07 AM 139 (H) 70 - 100 mg/dL Final 03/05/2025 05:59 AM 130 (H) 70 - 100 mg/dL Final 03/05/2025 05:15 AM 124 (H) 70 - 100 mg/dL Final 03/05/2025 04:17 AM 116 (H) 70 - 100 mg/dL Final Review of Systems ROS negative except for those mentioned in HPI. OBJECTIVE: Vitals: 03/05/25 0707 03/05/25 0800 03/05/25 0900 03/05/25 1000 BP: 112/66 Pulse: 83 78 82 88 Resp: Temp: 36.6 ?C (97.8 ?F) TempSrc: Temporal SpO2: 95% 95% 94% 94% Weight: Height: Physical Exam Vitals and nursing note reviewed. Constitutional: General: He is not in acute distress. Appearance: He is overweight. He is not toxic-appearing. Interventions: He is sedated. He is not intubated. HENT: Mouth/Throat: Mouth: Mucous membranes are moist. Pulmonary: Effort: Pulmonary effort is normal. No respiratory distress. He is not intubated. Abdominal: Tenderness: There is no guarding. Skin: General: Skin is warm. Comments: Intact incision midline Neurological: Mental Status: He is oriented to person, place, and time. 24 hour intake/output: Intake/Output Summary (Last 24 hours) at 03/05/2025 1029 Last data filed at 03/05/2025 0937 Gross per 24 hour Intake 4746 ml Output 3195 ml Net 1551 ml Diet: Adult diet Regular; 5 carb choices (75 gm/meal) Medications (as per EMR): HomeMeds: Current Outpatient Medications Medication Instructions Alcohol Swabs pads For daily blood sugar monitoring 4 times daily for Continuous Glucose Monitor failure aspirin 81 mg, Daily atorvastatin (LIPITOR) 40 mg, Daily Blood Glucose Monitoring Suppl (True Metrix Meter) w/Device kit 1 each, Does not apply, 4 times daily, For daily blood sugar monitoring 4 times daily for Continuous Glucose Monitor failure Continuous Glucose Sensor (Dexcom G7 Sensor) misc Replace with a new sensor every 10 days. glucagon 1 mg, SubCUTAneous, Once PRN glucose blood (True Metrix Blood Glucose Test) test strip For daily blood sugar monitoring 4 times daily for Continuous Glucose Monitor failure insulin glargine (LANTUS) 12 Units, SubCUTAneous, Nightly insulin lispro (HUMALOG) 4 Units, SubCUTAneous, 3 times daily before meals insulin pen needle 32G X 4 MM misc 4 times daily Lancets 33G misc 1 each, Does not apply, 4 times daily, For daily blood sugar monitoring 4 times daily for Continuous Glucose Monitor failure metop (more content not included)... Normal [facility] Progress Note ----- ----- Attestation signed by Kobi Guerrero MD at 03/05/2025 12:07 PM I have personally performed a face to face diagnostic evaluation on this patient today on 03/05/25. Labs, imaging studies, and electronic medical record notes on [employer] have been reviewed by me. This note documented and discussed by the []chief supply chain officer []Fellow [x] NOELLE reflects my history, exam and medical decision making. I have reviewed and agree with the care plan. Changes were made in the orders as necessary. ROS documentation was reviewed and negative unless otherwise stated in the HPI. My history, exam, assessment and plan are as follows: Some elements copied from my notes, which have been updated where appropriate. All reflect current medical decision making from 03/05/25. Physical Exam listed was completed in entirely on 03/05/25 and is unchanged except where noted. Pt no longer critical care Time spent for coordination of care: a subsequent visit: 25 minutes (Level I) Chief Complaint: Coronary artery disease of [place] artery of [place] heart with stable angina pectoris Additional pertinent interval history, ROS, and physical exam findings: In chair, on room air Heart RRR Resp clear anteriorly, unlabored Assessment and Plan: mvCAD 03/04 s/p CABG x 3 Anemia, thrombocytopenia expected post op HTN, HLD DM2 ASA, statin, b-liliana Lasix diuresis as tolerated D/c arterial line Status: Guarded Disposition: Remain in ICU until discharge ----- Cardiothoracic Surgery/[facility] Progress Note PATIENT NAME: Wallace Turk DATE: 03/05/25 HPI: 59-year-old male who was seen in the OP setting for CABG evaluation. Patient has history of CAD status post PCI of the LAD in May 2012, hypertension, type 2 diabetes, and hyperlipidemia. Recently saw cardiology January 19, 2025 with complaints of chest discomfort with exertion. An outpatient cath was scheduled and he underwent cardiac cath on 02/07/2025 which demonstrated severe triple-vessel CAD with LV dysfunction. Revascularization was discussed and patient consented he was taken to the operating room on 03/04/[address]. Surgery/Procedure: 03/04/25: s/p CABGx3 (MEADE-LAD, SVG-OM2, SVG-diag2), KWAME, LEVH with Dr. Lane Interval History: 03/05/25, POD# 01: Afebrile, NSR on tele, extubated post-op and now on 2L NC. On nitroglycerin for BP control for most of the night. 75g albumin, 1L LR given. Up in chair this AM, pain tolerable. No nausea, belching. Current IV Drips: Nitroglycerin- off Objective: CT output cc/24hrs: 680 UO cc/24hrs: 1,985 Vitals: BP: (!) 141/85, , BP Method: Arterial line Heart Rate: 88 Resp: 19 Temp: 37.8 ?C (100 ?F), Temp Source: Bladder BMI (Calculated): 28.93 BMP: Recent Labs 03/04/25 1131 03/04/25 1233 03/04/25 1547 03/05/25 0018 NA 140 141 138 137 K 3.3* 3.1* 4.0 3.9 CL 112* 113* 110* 110* CO2 22 22 19* 21* BUN 18 17 15 12 CREATININE 0.71* 0.72 0.67* 0.71* CALCIUM 7.1* 7.4* 8.1* 8.2* MG 2.5 -- 1.9 1.8 PHOS 3.4 -- -- -- CBC: Recent Labs 03/04/25 1131 03/04/25 1233 03/04/25 1241 03/05/25 0018 WBC 6.3 -- 8.7 5.8 HGB 10.1 9.9* 11.3 11.6 11.4* 10.4* HCT 29.6* -- 33.7* 31.1* PLT 106* -- 114* 119* MCV 87.3 -- 86.2 86.4 RDW 13.2 -- 13.4 13.4 INR: Recent Labs 03/04/25 1131 03/04/25 1241 03/05/25 0018 INR 1.3* 1.2* 1.1 Physical Exam Vitals reviewed. Constitutional: General: He is not in acute distress. Appearance: He is not ill-appearing or diaphoretic. Neck: Comments: Central line. Cardiovascular: Rate and Rhythm: Normal rate and regular rhythm. Pulses: Normal pulses. Heart sounds: No murmur heard. Pulmonary: Effort: Pulmonary effort is normal. Breath sounds: No wheezing, rhonchi or rales. Comments: On NC. Abdominal: General: There is distension. Palpations: Abdomen is soft. Tenderness: There is no abdominal tenderness. Comments: Chest tubes. Genitourinary: Comments: [place]. Musculoskeletal: General: Swelling present. Skin: General: Skin is warm and dry. Capillary Refill: Capillary refill takes less than 2 seconds. Findings: Bruising present. Comments: Surgical incisions well approximated, no redness, warmth or drainage noted. Neurological: General: No focal deficit present. Mental Status: He is alert. Assessment: MVCAD s/p CABGx3 HTN T2DM HLD Post operative Pulm Management: Normal Post-operative Course Post-operative Atrial Fibrillation: []Yes [x] No Acute blood loss anemia/consumptive thrombocytopenia Plan: Patient status: ICU Start aspirin, statin and low dose BB. -Increase BB as HR/BP tolerates. Remove arterial line. Okay for diet, monitor for nausea and (more content not included)... Normal [facility] Vital signsOrdered By: Nehemias Wallace on 03-05-2025 Heart rate 65 /min bpm [employer] Work Phone: Vital signson 03-05-2025 Heart rate 87 /min bpm [employer] XR CHEST 1 VIEWon 03-05-2025 XR CHEST 1 VIEW Patient Name: [facility]ALLACE TURK : 1965 [id number] Exam Date/Time: 03/05/2025 05:16 Procedure: XR CHEST 1 VIEW Ordering Provider: ROMERO ANDREW Reason For Exam: Shortness of breath CHEST X-RAY AP CLINICAL INDICATION: Shortness of breath AP radiograph of the chest was obtained. COMPARISON: 03/04/2025 FINDINGS: The patient has been extubated and the enteric tube has been removed. Stable position of the left chest tube with its tip overlying the lower thorax. Stable appearance/location of the right-sided internal jugular line. The cardiac silhouette is within normal limits. The exam was obtained at low inspiratory volumes resulting in crowding of the pulmonary interstitial markings. Otherwise no new focal consolidation or opacification is seen within the lungs. No pleural effusion or pneumothorax is identified. Degenerative changes of the thoracic spine are noted. IMPRESSION: 1. The patient has been extubated and the enteric tube has been removed. 2. The exam was obtained at low inspiratory volumes resulting in crowding of the pulmonary interstitial markings. Otherwise no new opacification or consolidation. Report Dictated on Electronically Signed By: Dandre Pavon MD Electronically Signed Date/Time: 03/05/2025 9:38 AM EDT Normal [facility] XR Chest Single viewon 03-05 1. The patient has b een extubated and the enteric tube has been removed. 2. The exam was obtained at low inspiratory volumes resulting in crowding of the pulmonary interstitial markings. Otherwise no new opacification or consolidation. Report Dictated on Electronically Signed By: Dandre Pavon MD Electronically Signed Date/Time: 03/05/2025 9:38 AM EDT [facility] Patient Name: WALLACE TURK : 1965 Exam Date/Time: 03/05/2025 05:16 Procedure: XR CHEST 1 VIEW Ordering Provider: ROMERO ANDREW Reason For Exam: Shortness of breath CHEST X-RAY AP CLINICAL INDICATION: Shortness of breath AP radiograph of the chest was obtained. COMPARISON: 03/04/2025 FINDINGS: The patient has been extubated and the enteric tube has been removed. Stable position of the left chest tube with its tip overlying the lower thorax. Stable appearance/location of the right-sided internal jugular line. The cardiac silhouette is within normal limits. The exam was obtained at low inspiratory volumes resulting in crowding of the pulmonary interstitial markings. Otherwise no new focal consolidation or opacification is seen within the lungs. No pleural effusion or pneumothorax is identified. Degenerative changes of the thoracic spine are noted. [facility] Dandre Pavon MD - 03/05/2025 Patient Name: WALLACE TURK : 1965 Exam Date/Time: 03/05/2025 05:16 Procedure: XR CHEST 1 VIEW Ordering Provider: ROMERO ANDREW Reason For Exam: Shortness of breath CHEST X-RAY AP CLINICAL INDICATION: Shortness of breath AP radiograph of the chest was obtained. COMPARISON: 03/04/2025 FINDINGS: The patient has been extubated and the enteric tube has been removed. Stable position of the left chest tube with its tip overlying the lower thorax. Stable appearance/location of the right-sided internal jugular line. The cardiac silhouette is within normal limits. The exam was obtained at low inspiratory volumes resulting in crowding of the pulmonary interstitial markings. Otherwise no new focal consolidation or opacification is seen within the lungs. No pleural effusion or pneumothorax is identified. Degenerative changes of the thoracic spine are noted. IMPRESSION: 1. The patient has been extubated and the enteric tube has been removed. 2. The exam was obtained at low inspiratory volumes resulting in crowding of the pulmonary interstitial markings. Otherwise no new opacification or consolidation. Report Dictated on Electronically Signed By: Dandre Pavon MD Electronically Signed Date/Time: 03/05/2025 9:38 AM EDT [facility] Radiology Study observation (narrative) [facility] XR Chest Single viewOrdered By: Dandre Pavon on 03-05-2025 [facility] Work Phone: BASIC METABOLIC PANELon 02-12 Anion gap [Moles/Vol] 9 mmol/L Normal 3-13 [facility] Comment on above: Performed By: #### L AB15, [id number] ####Fibre Composite Technician: EDVIN HAYS ([id number])[facility])[address] [place] [address] Calcium [Mass/Vol] 8.1 mg/dL Low 8.4-10.2 [facility] Comment on above: Performed By: #### L AB15, [id number] ####Fibre Composite Technician: EDVIN HAYS ([id number])[facility])[address] [place] [address] Chloride [Moles/Vol] 110 mmol/L High 98-107 [facility] Comment on above: Performed By: #### L AB15, [id number] ####Fibre Composite Technician: EDVIN HAYS ([id number])[facility])[address] [place] [address] CO2 [Moles/Vol] 19 mmol/L Low 22-29 [facility] Comment on above: Performed By: #### L AB15, [id number] ####Fibre Composite Technician: EDVIN [id number])[facility])[address] [place] [address] Creatinine [Mass/Vol] 0.67 mg/dL Low 0.72-1.25 [facility] Comment on above: Performed By: #### L AB15, [id number] ####Fibre Composite Technician: EDVIN [id number])[facility])[address] [place] [address] GLOMERULAR FILTRATION RATE ML/MIN/1.73 SQ M.PREDICTED >90.0 Normal >60.0 [facility] Comment on above: Result Comment: Calc ulation based on the Chronic Kidney Disease Epidemiology Collaboration (CKD-EPI) equation refit without adjustment for race Performed By: #### L AB15, [id number] ####Fibre Composite Technician: EDVIN HAYS ([id number])[facility])[address] [place] [address] Glucose [Mass/Vol] 164 mg/dL High 74-100 [facility] Comment on above: Performed By: #### L AB15, [id number] ####Fibre Composite Technician: EDVIN HAYS ([id number])[facility])[address] [place] [address] Potassium [Moles/Vol] 4.0 mmol/L Normal 3.5-5.1 [facility] Comment on above: Result Comment: [facility] potassium values may be up to 0.5 mmol/L lower than serum values. Performed By: #### L AB15, [id number] ####Fibre Composite Technician: EDVIN HAYS ([id number])[facility])[address] [place] [address] [place] Sodium [Moles/Vol] 138 mmol/L Normal 136-145 [facility] Comment on above: Performed By: #### L AB15, [id number] ####Fibre Composite Technician: EDVIN HAYS ([id number])[facility])[address] [place] [address] [place] Urea nitrogen [Mass/Vol] 15 mg/dL Normal 9-23 [facility] Comment on above: Performed By: #### L AB15, [id number] ####Fibre Composite Technician: EDVIN HAYS ([id number])[facility])[address] [place] [address] [place] Anion gap [Moles/Vol] 6 mmol/L Normal 3-13 [facility] Comment on above: Performed By: #### L AB103, LAB15 #### Fibre Composite Technician: EDVIN HAYS ([id number]) [facility] [address] [place] [address] Calcium [Mass/Vol] 7.1 mg/dL Low 8.4-10.2 [facility] Comment on above: Performed By: #### L AB103, LAB15 #### Fibre Composite Technician: EDVIN HAYS ([id number]) [facility] ([facility] [address] [place] [address] [place] Chloride [Moles/Vol] 112 mmol/L High 98-107 [facility] Comment on above: Performed By: #### L AB103, LAB15 #### Fibre Composite Technician: EDVIN HAYS ([id number]) [facility] ([facility] [address] [place] [address] CO2 [Moles/Vol] 22 mmol/L Normal 22-29 [facility] Comment on above: Performed By: #### L AB103, LAB15 #### Fibre Composite Technician: EDVIN HAYS ([id number]) [facility] ([facility] [address] [place] [address] Creatinine [Mass/Vol] 0.71 mg/dL Low 0.72-1.25 [facility] Comment on above: Performed By: #### L AB103, LAB15 #### Fibre Composite Technician: EDVIN HAYS ([id number]) [facility] ([facility]) [address] [place] [address] GLOMERULAR FILTRATION RATE ML/MIN/1.73 SQ M.PREDICTED >90.0 Normal >60.0 [facility] Comment on above: Result Comment: Calc ulation based on the Chronic Kidney Disease Epidemiology Collaboration (CKD-EPI) equation refit without adjustment for race Performed By: #### L AB103, LAB15 #### Fibre Composite Technician: EDVIN HAYS ([id number]) [facility] ([facility]) [address] [place] [address] [place] Glucose [Mass/Vol] 126 mg/dL High 74-100 [facility] Comment on above: Performed By: #### L AB103, LAB15 #### Fibre Composite Technician: EDVIN HAYS ([id number]) [facility] ([facility]) [address] [place] [address] [place] Potassium [Moles/Vol] 3.3 mmol/L Low 3.5-5.1 [facility] Comment on above: Result Comment: [facility] potassium values may be up to 0.5 mmol/L lower than serum values. Performed By: #### L AB103, LAB15 #### Fibre Composite Technician: EDVIN HAYS ([id number]) [facility] ([facility]) [address] [place] [address] Sodium [Moles/Vol] 140 mmol/L Normal 136-145 [facility] Comment on above: Performed By: #### L AB103, LAB15 #### Fibre Composite Technician: EDVIN HAYS ([id number]) [facility] ([facility]) [address] [place] [address] Urea nitrogen [Mass/Vol] 18 mg/dL Normal 9-23 [facility] Comment on above: Performed By: #### L AB103, LAB15 #### Fibre Composite Technician: EDVIN HAYS ([id number]) [facility] ([facility]) [address] [place] [address] BLOOD GAS ARTERIALon 025 AMOUNT OF OXYGEN 50% Normal [facility] Comment on above: Performed By: #### L AB103, LAB15 #### Fibre Composite Technician: EDVIN HAYS ([id number]) [facility] ([facility]) [address] [place] [address] [place] Base excess Calc (Bld) [Moles/Vol] -3.3000 mmol/L Low -3.0-3.0 [facility] Comment on above: Performed By: #### L AB103, LAB15 #### Fibre Composite Technician: EDVIN HAYS ([id number]) [facility]) [address] [place] [address] CO2 [Moles/Vol] 22.3 mmol/L Low 23.0-27.0 [facility] Comment on above: Performed By: #### L AB103, LAB15 #### Fibre Composite Technician: EDVIN HAYS ([id number]) [facility] ([facility]) [address] [place] [address] HCO3 (Bld) [Moles/Vol] 21.2 mmol/L Normal 21.0-25.0 [facility] Comment on above: Performed By: #### L AB103, LAB15 #### Fibre Composite Technician: EDVIN HAYS ([id number]) [facility] ([facility]) [address] [place] [address] Hemoglobin (Bld) [Mass/Vol] 11.6 g/dL Normal Screen only [facility] Comment on above: Performed By: #### L AB103, LAB15 #### Fibre Composite Technician: EDVIN HAYS ([id number]) [facility] ([facility]) [address] [place] [address] OXYGEN SATURATION (%) IN ARTERIAL BLOOD 98.6 % Normal 95.0-100.0 [facility] Comment on above: Performed By: #### L AB103, LAB15 #### Fibre Composite Technician: EDVIN HAYS ([id number]) [facility] ([facility]) [address] [place] [address] PCO2 ARTERIAL 36.3 mm Hg Normal >35.0-<45. 0 [facility] Comment on above: Performed By: #### L AB103, LAB15 #### Fibre Composite Technician: EDVIN HAYS ([id number]) [facility] ([facility]) [address] [place] [address] PH ARTERIAL 7.385 Normal 7.350-7.45 0 [facility] Comment on above: Performed By: #### L AB103, LAB15 #### Fibre Composite Technician: EDVIN HAYS ([id number]) [facility] ([facility]) [address] [place] [address] PO2 ARTERIAL 187.1 mm Hg High 80.0-100.0 [facility] Comment on above: Performed By: #### L AB103, LAB15 #### Fibre Composite Technician: EDVIN HAYS ([id number]) [facility] ([facility]) [address] [place] [address] SOURCE OF OXYGEN Ventilator Normal [facility] Comment on above: Performed By: #### L AB103, LAB15 #### Fibre Composite Technician: EDVIN HAYS ([id number]) [facility]) [address] [place] [address] AMOUNT OF OXYGEN 100 Normal [facility] Comment on above: Performed By: #### L AB76 ####Fibre Composite Technician: EDVIN HAYS ([id number])[facility])[address] [place] [address] Base excess Calc (Bld) [Moles/Vol] -2.7000 mmol/L Normal -3.0-3.0 [facility] Comment on above: Performed By: #### L AB76 ####Fibre Composite Technician: EDVIN HAYS ([id number])[facility])[address] [place] [address] CO2 [Moles/Vol] 23.0 mmol/L Normal 23.0-27.0 [facility] Comment on above: Performed By: #### L AB76 ####Fibre Composite Technician: EDVIN HAYS ([id number])[facility])[address] [place] [address] HCO3 (Bld) [Moles/Vol] 21.9 mmol/L Normal 21.0-25.0 [facility] Comment on above: Performed By: #### L AB76 ####Fibre Composite Technician: EDVIN HAYS ([id number])[facility])[address] [place] [address] Hemoglobin (Bld) [Mass/Vol] 10.1 g/dL Normal Screen only [facility] Comment on above: Performed By: #### L AB76 ####Fibre Com[employer] Technician: EDVIN HAYS ([id number])[facility])[address] [place] [address] OXYGEN SATURATION (%) IN ARTERIAL BLOOD 98.3 % Normal 95.0-100.0 [facility] Comment on above: Performed By: #### L AB76 ####Fibre Composite Technician: EDVIN [id number])[facility] ([facility])[address] [place] [address] PCO2 ARTERIAL 37.0 mm Hg Normal >35.0-<45. 0 [facility] Comment on above: Performed By: #### L AB76 ####Fibre Composite Technician: EDVIN HAYS ([id number])[facility])[address] [place] [address] PH ARTERIAL 7.390 Normal 7.350-7.45 0 [facility] Comment on above: Performed By: #### L AB76 ####Fibre Composite Technician: EDVIN HAYS ([id number])[facility])[address] [place] [address] PO2 ARTERIAL 193.3 mm Hg High 80.0-100.0 [facility] Comment on above: Performed By: #### L AB76 ####Fibre Composite Technician: EDVIN HAYS ([id number])[facility])[address] [place] [address] SOURCE OF OXYGEN Ventilator Normal [facility] Comment on above: Performed By: #### L AB76 ####Fibre Composite Technician: EDVIN HAYS ([id number])[address] BLOOD GAS, VENOUSon 03-04-20 25 AMOUNT OF OXYGEN 50% Normal [facility] Comment on above: Result Comment: GEORGE Hernadez COMMENTS: Assessment of oxygenation is best done with an arterial blood gas determination. Reference ranges for pO2, bicarbonate, and base excess are for mixed venous blood. Specimens drawn from a peripheral vein will often have higher values. Performed By: #### L AB79 ####Fibre Composite Technician: EDVIN HAYS ([id number])[facility])[address] [place] [address] Base excess Calc (BldV) [Moles/Vol] -3.4000 mmol/L Low -3.0-3.0 [facility] Comment on above: Performed By: #### L AB79 ####Fibre Composite Technician: EDVIN HAYS ([id number])[facility] [place] [address] [place] CO2 [Moles/Vol] 23.6 mmol/L Low 24.0-28.0 [facility] Comment on above: Performed By: #### L AB79 ####Fibre Composite Technician: EDVIN HAYS ([id number])[facility])[address] [place] [address] HCO3 (Bld) [Moles/Vol] 22.3 mmol/L Low 23.0-27.0 [facility] Comment on above: Performed By: #### L AB79 ####Fibre Composite Technician: EDVIN HAYS ([id number])[facility])[address] [place] [address] Hemoglobin (Bld) [Mass/Vol] 11.3 g/dL Normal Screen only [facility] Comment on above: Performed By: #### L AB79 ####Fibre Composite Technician: EDVIN HAYS ([id number])[facility])[address] [place] [address] OXYGEN (MM HG) IN VENOUS BLOOD 53.0 mm Hg Normal [facility] Comment on above: Performed By: #### L AB79 ####Fibre Composite Technician: EDVIN HAYS ([id number])[facility])[address] [place] [address] OXYGEN SATURATION (%) IN VENOUS BLOOD 82.7 % Normal [facility] Comment on above: Performed By: #### L AB79 ####Fibre Composite Technician: EDVIN HAYS ([id number])[facility])[address] [place] [address] [place] PCO2, ARIE 42.6 mm Hg Normal 40.0-55.0 [facility] Comment on above: Performed By: #### L AB79 ####Fibre Composite Technician: EDVIN HAYS ([id number])[facility])[address] [place] [address] [place] PH VENOUS 7.337 Normal 7.330-7.43 0 [facility] Comment on above: Performed By: #### L AB79 ####Fibre Composite Technician: EDVIN HAYS ([id number])[facility] ([facility])[address] SOURCE OF OXYGEN Ventilator Normal [facility] Comment on above: Performed By: #### L AB79 ####Fibre Composite Technician: EDVIN HAYS ([id number])[facility] ([facility])[address] Basic metabolic 1998 panelon 03-04-2025 Anion gap [Moles/Vol] 9 mmol/L 3 - 13 mmol/L [facility] Calcium [Mass/Vol] 8.1 mg/dL Low 8.4 - 10. 2 mg/dL [facility] Chloride [Moles/Vol] 110 mmol/L High 98 - 10 7 mmol/L [facility] CO2 [Moles/Vol] 19 mmol/L Low 22 - 29 mmol/L [facility] Creatinine [Mass/Vol] 0.67 mg/dL Low 0.72 - 1.25 mg/dL [facility] GFR/1.73 sq M.predicted (S/P/Bld) [Vol rate/Area] - PINF [facility] Comment on above: Calculation based on the Chronic Kidney Disease Epidemiology Collaboration (CKD-EPI) equation refit without adjustment for race Glucose [Mass/Vol] 164 mg/dL High 74 - 100 mg/dL [facility] Interpretation and review of laboratory results Abnormal [facility] Potassium [Moles/Vol] 4 mmol/L 3.5 - 5.1 mmol/L [facility] Comment on above: Plasma potassium norma ues may be up to 0.5 mmol/L lower than serum values. Sodium [Moles/Vol] 138 mmol/L 136 - 145 mmol/L [facility] Urea nitrogen [Mass/Vol] 15 mg/dL 9 - 23 mg/dL [facility] Anion gap [Moles/Vol] 6 mmol/L 3 - 13 mmol/L [facility] Calcium [Mass/Vol] 7.1 mg/dL Low 8.4 - 10. 2 mg/dL [facility] Chloride [Moles/Vol] 112 mmol/L High 98 - 10 7 mmol/L [facility] CO2 [Moles/Vol] 22 mmol/L 22 - 29 mmol/L [facility] Creatinine [Mass/Vol] 0.71 mg/dL Low 0.72 - 1.25 mg/dL [facility] GFR/1.73 sq M.predicted (S/P/Bld) [Vol rate/Area] - PINF [facility] Comment on above: Calculation based on the Chronic Kidney Disease Epidemiology Collaboration (CKD-EPI) equation refit without adjustment for race Glucose [Mass/Vol] 126 mg/dL High 74 - 100 mg/dL [facility] Interpretation and review of laboratory results Abnormal [facility] Potassium [Moles/Vol] 3.3 mmol/L Low 3.5 - 5.1 mmol/L [facility] Comment on above: Plasma potassium norma ues may be up to 0.5 mmol/L lower than serum values. Sodium [Moles/Vol] 140 mmol/L 136 - 145 mmol/L [facility] Urea nitrogen [Mass/Vol] 18 mg/dL 9 - 23 mg/dL [facility] CALCIUM, IONIZEDon 03-04- 5 CALCIUM IONIZED 4.30 mg/dL Normal 4.30-5.20 [facility] Comment on above: Performed By: #### L AB103, LAB15 #### Fibre Composite Technician: EDVIN HAYS ([id number]) [facility]) [address] [place] [address] PH, IONIZED CALCIUM 7.35 Normal 7.31-7.46 [facility] Comment on above: Performed By: #### L AB103, LAB15 #### Fibre Composite Technician: EDVIN HAYS ([id number]) [facility]) [address] [place] [address] CALCIUM IONIZED 4.00 mg/dL Low 4.30-5.20 [facility] Comment on above: Order Comment: Obtai n PRN and check ionized Ca level if serum Ca level less than 8.0 Performed By: #### L AB103, LAB15 #### Fibre Composite Technician: EDVIN HAYS ([id number]) [facility]) [address] [place] [address] PH, IONIZED CALCIUM 7.38 Normal 7.31-7.46 [facility] Comment on above: Order Comment: Obtai n PRN and check ionized Ca level if serum Ca level less than 8.0 Performed By: #### L AB103, LAB15 #### Fibre Composite Technician: EVDIN HAYS ([id number]) [facility]) [address] [place] [address] CALCIUM IONIZED 4.00 mg/dL Low 4.30-5.20 [facility] Comment on above: Performed By: #### L AB54 ####Fibre Composite Technician: EDVIN HAYS ([id number])[facility])[address] [place] [address] PH, IONIZED CALCIUM 7.39 Normal 7.31-7.46 [facility] Comment on above: Performed By: #### L AB54 ####Fibre Composite Technician: EDVIN HAYS ([id number])[facility])[address] [place] [address] CBC (HEMOGRAM)on 03-04-2025 Erythrocyte distribution width (RBC) [Ratio] 13.4 % Normal 11.5-15.0 [facility] Comment on above: Performed By: #### L AB294 ####Fibre Composite Technician: EDVIN HAYS ([id number])[address] Hematocrit (Bld) [Volume fraction] 33.7 % Low 40.0-52.0 [facility] Comment on above: Performed By: #### L AB294 ####Fibre Composite Technician: EDVIN HAYS ([id number])[facility])[address] [place] [address] Hemoglobin (Bld) [Mass/Vol] 11.4 g/dL Low 13.0-18.0 [facility] Comment on above: Performed By: #### L AB294 ####Fibre Composite Technician: EDVIN HAYS ([id number])[address] IPF 4 Normal [facility] Comment on above: Performed By: #### L AB294 ####Fibre Composite Technician: EDVIN HAYS ([id number])[facility])[address] [place] [address] MCH (RBC) [Entitic mass] 29.2 pg Normal 26.0-34.0 [facility] Comment on above: Performed By: #### L AB294 ####Fibre Composite Technician: EDVIN HAYS ([id number])[facility] ([facility])[address] [place] [address] MCHC 33.8 % Normal 30.5-36.0 [facility] Comment on above: Performed By: #### L AB294 ####Fibre Composite Technician: EDVIN HAYS ([id number])[facility] ([facility])[address] [place] [address] MCV (RBC) [Entitic vol] 86.2 fL Normal 77.0-99.0 [facility] Comment on above: Performed By: #### L AB294 ####Fibre Composite Technician: EDVIN HAYS ([id number])[facility] ([facility])[address] [place] [address] Platelet mean volume (Bld) [Entitic vol] 11.0 fL Normal 9.0-12.7 [facility] Comment on above: Performed By: #### L AB294 ####Fibre Composite Technician: EDVIN HAYS ([id number])[facility] ([facility])[address] [place] [address] Platelets (Bld) [#/Vol] 114 10*3/uL Low 140-440 [facility] Comment on above: Performed By: #### L AB294 ####Fibre Composite Technician: EDVIN HAYS ([id number])[facility] ([facility])[address] [place] [address] RBC (Bld) [#/Vol] 3.91 10*6/uL Low 4.40-5.90 [facility] Comment on above: Performed By: #### L AB294 ####Fibre Composite Technician: EDVIN HAYS ([id number])[facility] ([facility])[address] [place] [address] WBC (Bld) [#/Vol] 8.7 10*3/uL Normal 3.6-10.7 [facility] Comment on above: Performed By: #### L AB294 ####Fibre Composite Technician: EDVIN HAYS ([id number])[facility])[address] [place] [address] Erythrocyte distribution width (RBC) [Ratio] 13.2 % Normal 11.5-15.0 [facility] Comment on above: Performed By: #### L AB103, LAB15 #### Fibre Composite Technician: EDVIN HAYS ([id number]) [facility] ([facility]) [address] [place] [address] Hematocrit (Bld) [Volume fraction] 29.6 % Low 40.0-52.0 [facility] Comment on above: Performed By: #### L AB103, LAB15 #### Fibre Composite Technician: EDVIN HAYS ([id number]) [facility]) [address] [place] [address] Hemoglobin (Bld) [Mass/Vol] 9.9 g/dL Low 13.0-18.0 [facility] Comment on above: Performed By: #### L AB103, LAB15 #### Fibre Composite Technician: EDVIN HAYS ([id number]) [facility]) [address] [place] [address] IPF 4 Normal [facility] Comment on above: Performed By: #### L AB103, LAB15 #### Fibre Composite Technician: EDVIN HAYS ([id number]) [facility] ([facility]) [address] [place] [address] MCH (RBC) [Entitic mass] 29.2 pg Normal 26.0-34.0 [facility] Comment on above: Performed By: #### L AB103, LAB15 #### Fibre Composite Technician: EDVIN HAYS ([id number]) [facility]) [address] [place] [address] MCHC 33.4 % Normal 30.5-36.0 [facility] Comment on above: Performed By: #### L AB103, LAB15 #### Fibre Composite Technician: EDVIN HAYS ([id number]) [facility] ([facility]) [address] [place] [address] MCV (RBC) [Entitic vol] 87.3 fL Normal 77.0-99.0 [facility] Comment on above: Performed By: #### L AB103, LAB15 #### Fibre Composite Technician: EDVIN HAYS ([id number]) [facility] ([facility]) [address] [place] [address] Platelet mean volume (Bld) [Entitic vol] 11.3 fL Normal 9.0-12.7 [facility] Comment on above: Performed By: #### L AB103, LAB15 #### Fibre Composite Technician: EDVIN HAYS ([id number]) [facility] ([facility]) [address] [place] [address] Platelets (Bld) [#/Vol] 106 10*3/uL Low 140-440 [facility] Comment on above: Performed By: #### L AB103, LAB15 #### Fibre Composite Technician: EDVIN HAYS ([id number]) [facility] ([facility]) [address] [place] [address] RBC (Bld) [#/Vol] 3.39 10*6/uL Low 4.40-5.90 [facility] Comment on above: Performed By: #### L AB103, LAB15 #### Fibre Composite Technician: EDVIN HAYS ([id number]) [facility] ([facility]) [address] [place] [address] WBC (Bld) [#/Vol] 6.3 10*3/uL Normal 3.6-10.7 [facility] Comment on above: Performed By: #### L AB103, LAB15 #### Fibre Composite Technician: EDVIN HAYS ([id number]) [facility]) [address] [place] [address] CBC panel Auto (Bld)on 03-04 Erythrocyte distribution width (RBC) [Ratio] 13.4 % 11.5 - 15.0 % [facility] Hematocrit (Bld) [Volume fraction] 33.7 % Low 40.0 - 52.0 % [facility] Hemoglobin (Bld) [Mass/Vol] 11.4 g/dL Low 13.0 - 18.0 g/dL [facility] Interpretation and review of laboratory results Abnormal [facility] IPF 4 [facility] MCH (RBC) [Entitic mass] 29.2 pg 26. 0 - 34.0 pg [facility] MCHC (RBC) [Mass/Vol] 33.8 % 30.5 - 36.0 % [facility] MCV (RBC) [Entitic vol] 86.2 fL 77.0 - 99.0 fL [facility] Platelet mean volume (Bld) [Entitic vol] 11 fL 9.0 - 12.7 fL [facility] Platelets (Bld) [#/Vol] 114 10*3/uL Low 140 - 440 10*3/uL [facility] RBC (Bld) [#/Vol] 3.91 10*6/uL Low 4.40 - 5.90 10*6/uL [facility] WBC (Bld) [#/Vol] 8.7 10*3/uL 3.6 - 10.7 10*3/uL [facility] Erythrocyte distribution width (RBC) [Ratio] 13.2 % 11.5 - 15.0 % [facility] Hematocrit (Bld) [Volume fraction] 29.6 % Low 40.0 - 52.0 % [facility] Hemoglobin (Bld) [Mass/Vol] 9.9 g/dL Low 13.0 - 18.0 g/dL [facility] Interpretation and review of laboratory results Abnormal [facility] IPF 4 [facility] MCH (RBC) [Entitic mass] 29.2 pg 26. 0 - 34.0 pg [facility] MCHC (RBC) [Mass/Vol] 33.4 % 30.5 - 36.0 % [facility] MCV (RBC) [Entitic vol] 87.3 fL 77.0 - 99.0 fL [facility] Platelet mean volume (Bld) [Entitic vol] 11.3 fL 9.0 - 12.7 fL [facility] Platelets (Bld) [#/Vol] 106 10*3/uL Low 140 - 440 10*3/uL [facility] RBC (Bld) [#/Vol] 3.39 10*6/uL Low 4.40 - 5.90 10*6/uL [facility] WBC (Bld) [#/Vol] 6.3 10*3/uL 3.6 - 10.7 10*3/uL [facility] COMPREHENSIVE METABOLIC PANE Luiz 03-04-2025 Albumin [Mass/Vol] 3.3 g/dL Low 3.5-5.0 [facility] Comment on above: Performed By: #### L AB103, LAB15 #### Fibre Composite Technician: EDVIN HAYS ([id number]) [facility] ([facility] [address] [place] [address] ALP [Catalytic activity/Vol] 52 U/L Normal 40-150 [facility] Comment on above: Performed By: #### L AB103, LAB15 #### Fibre Composite Technician: EDVIN HAYS ([id number]) [facility] ([facility]) [address] [place] [address] ALT [Catalytic activity/Vol] 10 U/L Normal <40 [facility] Comment on above: Performed By: #### L AB103, LAB15 #### Fibre Composite Technician: EDVIN HAYS ([id number]) [facility] ([facility]) [address] [place] [address] Anion gap [Moles/Vol] 6 mmol/L Normal 3-13 [facility] Comment on above: Performed By: #### L AB103, LAB15 #### Fibre Composite Technician: EDVIN HAYS ([id number]) [facility] ([facility]) [address] [place] [address] AST [Catalytic activity/Vol] 32 U/L Normal <34 [facility] Comment on above: Performed By: #### L AB103, LAB15 #### Fibre Composite Technician: EDVIN HAYS ([id number]) [facility] ([facility]) [address] [place] [address] [place] Bilirubin [Mass/Vol] 0.8 mg/dL Normal <1.2 [facility] Comment on above: Performed By: #### L AB103, LAB15 #### Fibre Composite Technician: EDVIN HAYS ([id number]) [facility] ([facility]) [address] [place] [address] Calcium [Mass/Vol] 7.4 mg/dL Low 8.4-10.2 [facility] Comment on above: Performed By: #### L AB103, LAB15 #### Fibre Composite Technician: EDVIN HAYS ([id number]) [facility] ([facility]) [address] [place] [address] Chloride [Moles/Vol] 113 mmol/L High 98-107 [facility] Comment on above: Performed By: #### L AB103, LAB15 #### Fibre Composite Technician: EDVIN HAYS ([id number]) [facility] ([facility]) [address] [place] [address] CO2 [Moles/Vol] 22 mmol/L Normal 22-29 [facility] Comment on above: Performed By: #### L AB103, LAB15 #### Fibre Composite Technician: EDVIN HAYS ([id number]) [facility] ([facility]) [address] [place] [address] Creatinine [Mass/Vol] 0.72 mg/dL Normal 0.72-1.25 [facility] Comment on above: Performed By: #### L AB103, LAB15 #### Fibre Composite Technician: EDVIN HAYS ([id number]) [facility]) [address] [place] [address] GLOMERULAR FILTRATION RATE ML/MIN/1.73 SQ M.PREDICTED >90.0 Normal >60.0 [facility] Comment on above: Result Comment: Calc ulation based on the Chronic Kidney Disease Epidemiology Collaboration (CKD-EPI) equation refit without adjustment for race Performed By: #### L AB103, LAB15 #### Fibre Composite Technician: EDVIN HAYS ([id number]) [facility] ([facility]) [address] [place] [address] Glucose [Mass/Vol] 120 mg/dL High 74-100 [facility] Comment on above: Performed By: #### L AB103, LAB15 #### Fibre Composite Technician: EDVIN HAYS ([id number]) [facility]) [address] [place] [address] Potassium [Moles/Vol] 3.1 mmol/L Low 3.5-5.1 [facility] Comment on above: Result Comment: [facility] potassium values may be up to 0.5 mmol/L lower than serum values. Performed By: #### L AB103, LAB15 #### Fibre Composite Technician: EDVIN HAYS ([id number]) [facility] ([facility]) [address] [place] [address] Protein [Mass/Vol] 5.1 g/dL Low 6.4-8.3 [facility] Comment on above: Performed By: #### L AB103, LAB15 #### Fibre Composite Technician: EDVIN HAYS ([id number]) [facility]) [address] [place] [address] Sodium [Moles/Vol] 141 mmol/L Normal 136-145 [facility] Comment on above: Performed By: #### L AB103, LAB15 #### Fibre Composite Technician: EDVIN HAYS ([id number]) [facility]) [address] [place] [address] Urea nitrogen [Mass/Vol] 17 mg/dL Normal 9-23 [facility] Comment on above: Performed By: #### L AB103, LAB15 #### Fibre Composite Technician: EDVIN HAYS ([id number]) [facility]) [address] [place] [address] Calcium.ionized [Moles/Vol]O rdered By: Jennifer Ryan on 03-04-2025 Calcium.ionized (Bld) [Moles/Vol] 4.3 mg/dL 4.30 - 5.20 mg/dL [facility] Interpretation and review of laboratory results Normal [facility] PH, IONIZED CALCIUM 7.35 7.31 - 7.46 [facility] Calcium.ionized [Moles/Vol]o n 03-04-2025 Calcium.ionized (Bld) [Moles/Vol] 4 mg/dL Low 4.30 - 5.20 mg/dL [facility] Interpretation and review of laboratory results Abnormal [facility] PH, IONIZED CALCIUM 7.38 7.31 - 7.46 [facility] Calcium.ionized (Bld) [Moles/Vol] 4 mg/dL Low 4.30 - 5.20 mg/dL [facility] Interpretation and review of laboratory results Abnormal [facility] PH, IONIZED CALCIUM 7.39 7.31 - 7.46 [facility] Comprehensive metabolic 1998 panelon 03-04-2025 Albumin [Mass/Vol] 3.3 g/dL Low 3.5 - 5.0 g/dL [facility] ALP [Catalytic activity/Vol] 52 U/L 40 - 150 U/L [facility] ALT [Catalytic activity/Vol] 10 U/L NINF - 40 U/L [facility] Anion gap [Moles/Vol] 6 mmol/L 3 - 13 mmol/L [facility] AST [Catalytic activity/Vol] 32 [facility]/L [facility] Bilirubin [Mass/Vol] 0.8 mg/dL NINF - 1.2 mg/dL [facility] Calcium [Mass/Vol] 7.4 mg/dL Low 8.4 - 10. 2 mg/dL [facility] Chloride [Moles/Vol] 113 mmol/L High 98 - 10 7 mmol/L [facility] CO2 [Moles/Vol] 22 mmol/L 22 - 29 mmol/L [facility] Creatinine [Mass/Vol] 0.72 mg/dL 0.72 - 1.25 mg/dL [facility] GFR/1.73 sq M.predicted (S/P/Bld) [Vol rate/Area] - PINF [facility] Comment on above: Calculation based on the Chronic Kidney Disease Epidemiology Collaboration (CKD-EPI) equation refit without adjustment for race Glucose [Mass/Vol] 120 mg/dL High 74 - 100 mg/dL [facility] Interpretation and review of laboratory results Abnormal [facility] Potassium [Moles/Vol] 3.1 mmol/L Low 3.5 - 5.1 mmol/L [facility] Comment on above: Plasma potassium norma ues may be up to 0.5 mmol/L lower than serum values. Protein [Mass/Vol] 5.1 g/dL Low 6.4 - 8.3 g/dL [facility] Sodium [Moles/Vol] 141 mmol/L 136 - 145 mmol/L [facility] Urea nitrogen [Mass/Vol] 17 mg/dL 9 - 23 mg/dL [facility] Consulton 03-04-2025 Consult ----- ----- Attestation signed by Martell Guthrie MD at 03/04/2025 2:33 PM I have personally performed a face to face diagnostic evaluation on this patient. In addition, I have reviewed the resident's/CLINICAL BIOSTATISTICIAN/SOLAR SYSTEMS DESIGNER's care plan and agree with those findings I have performed a substantive portion of the the medical decision making. My findings are as follows: Patient has type 2 diabetes at least since 2014 Was seen recently at our office was started on basal bolus insulin Uses Dexcom G7 at home Past he was on metformin, Jardiance, Trulicity but they were discontinued by patient Previous michelle and islet cell antibodies were negative Patient is currently intubated, on insulin drip Lab Results Component Value Date HGBA1C 11.7 (A) 02/24/2025 Vitals: BP (!) 141/85 Pulse 61 Temp (!) 35.5 ?C (95.9 ?F) Resp 17 Ht 5' 9 (1.753 m) Wt 196 lb (88.9 kg) SpO2 100% BMI 28.94 kg/m? Constitutional: Intubated Respiratory: No respiratory distress Cardiovascular System: RNo lower extremity edema A/P Type 2 diabetes with hyperglycemia with long-term insulin use Type 2 diabetes with cardiac complication Overweight Body mass index is 28.94 kg/m?. Continue insulin drip BG Q 1 hour per protocol Will switch insulin drip to sc insulin in 24 to 48 hours. Patient will be discharged on basal bolus insulin We will follow-up closely Old records including available PCP, ED notes and or other specialists notes are reviewed. LABs and/or imaging are reviewed as detailed in the resident's/CLINICAL BIOSTATISTICIAN/SOLAR SYSTEMS DESIGNER's note ----- Department of Internal Medicine Division of Endocrinology, Diabetes, & Metabolism Endocrinology Note Patient Name: Wallace Turk : 1965 AGE: 59 y.o. Room/Bed: T1-123/T1-123 A Admission Date: 03/04/2025 Visit Date: 03/04/2025 Reason for Endocrine Consult: post heart Provider/Team Requesting Consult: cts PCP: No primary care provider on file. 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 S/p CABGx3 Patient known to endcrine team outpatient for DM2- see prior notes. Recently started on home insulin outpatient. No noted hx of thyroid disease. Interval events: BGL below Stable currently on insulin gtt VSS, NPO Remains intubated/ sedated at this time Will clarify history once extubated- tomorrow Sees endocrine outpatient - on home insulin pens CT in place On propofol Pressor support as needed Spoke with team Type of DM: 2 Onset of DM: 2013 Home DM Medication Regimen: dexcom g7, lantus 12, humalog //4-per chart DM control (last A1c/glucose data): Lab Results Component Value Date HGBA1C 11.7 (A) 02/24/2025 Glucose Date/Time Value Ref Range Status 03/04/2025 05:49 AM 149 (H) 70 - 100 mg/dL Final 02/28/2025 06:08 AM 202 (H) 70 - 100 mg/dL Final 02/24/2025 11:08 AM 230 (A) 70 - 100 mg/dL Final Review of Systems ROS negative except for those mentioned in HPI. OBJECTIVE: Vitals: 03/04/25 0550 03/04/25 0743 BP: (!) 141/85 Pulse: 64 Resp: 16 Temp: (!) 35.7 ?C (96.3 ?F) TempSrc: Tympanic SpO2: 100% Weight: 196 lb (88.9 kg) 196 lb (88.9 kg) Height: 5' 9 (1.753 m) 5' 9 (1.753 m) Physical Exam Vitals and nursing note reviewed. Constitutional: General: He is sleeping. He is not in acute distress. Appearance: He is overweight. He is ill-appearing. He is not toxic-appearing. Interventions: He is sedated and intubated. HENT: Mouth/Throat: Mouth: Mucous membranes are moist. Cardiovascular: Rate and Rhythm: Normal rate. Pulmonary: Effort: Pulmonary effort is normal. No respiratory distress. He is intubated. Abdominal: Tenderness: There is no guarding. Musculoskeletal: Cervical back: Normal range of motion. Skin: General: Skin is warm and dry. Coloration: Skin is pale. Comments: Intact incision midline 24 hour intake/output: Intake/Output Summary (Last 24 hours) at 03/04/2025 1220 Last data filed at 03/04/2025 1158 Gross per 24 hour Intake 2154 ml Output 930 ml Net 1224 ml Diet: NPO diet Medications (as per EMR): HomeMeds: Current Outpatient Medications Medication Instructions Alcohol Swabs pads For autumn (more content not included)... Normal [facility] Consult ----- ----- Attestation signed by Kobi Guerrero MD at 03/04/2025 1:03 PM I have personally performed a face to face diagnostic evaluation on this patient today on 03/04/25. Labs, imaging studies, and electronic medical record notes on [employer] have been reviewed by me. This note documented and discussed by the []chief supply chain officer []Fellow [x] NOELLE reflects my history, exam and medical decision making. I have reviewed and agree with the care plan. Changes were made in the orders as necessary. ROS documentation was reviewed and negative unless otherwise stated in the HPI. My history, exam, assessment and plan are as follows: All reflect current medical decision making from 03/04/25. Physical Exam listed was completed in entirely on 03/04/25 and is unchanged except where noted. Critical care time spent excluding separately billable procedures is 34 minutes. Chief Complaint: Coronary artery disease of [place] artery [place] heart with stable angina pectoris Additional pertinent interval history, ROS, and physical exam findings: Patient seen and examined. Sedated, intubated, pupils symmetric Heart RRR Lungs symmetric air exchange No cyanosis Assessment and Plan: mvCAD 03/04 s/p CABG x 3 Post op vent management Anemia, thrombocytopenia expected post op HTN, HLD [facility] f/u CXR and ABG SAT/SBT later today Transfuse prn Status: Critically ill Disposition: Remain in ICU until discharge ----- [facility] Group: Critical Care Consultation Note Date: 03/04/25 PATIENT NAME: Wallace Turk : 1965 (59 y.o.) Reason for Consult: Critical Care & Vent Management HPI: 59-year-old male who was seen in the OP setting for CABG evaluation. Patient has history of CAD status post PCI of the LAD in May 2012, hypertension, type 2 diabetes, and hyperlipidemia. Recently saw cardiology January 19, 2025 with complaints of chest discomfort with exertion. An outpatient cath was scheduled and he underwent cardiac cath on 02/07/2025 which demonstrated severe triple-vessel CAD with LV dysfunction. Revascularization was discussed and patient consented he was taken to the operating room on 03/04/[address]. Surgery: 03/04/25: s/p CABGx3 (MEADE-LAD, SVG-OM2, SVG-diag2), KWAME, LEVH with Dr. Lane Interval History: 03/04/25: POD #0: Patient arrived to the unit, intubated and sedated. Surgical hand off completed below. Surgery Hand Off: Arrival Time in CTVICU: 1218 Complications/Pertinent Events: Last Paralytic: 1120 Medications given in route: Gtts OR report Propofol: 25mcg/kg/min Insulin: 2units/hr Amicar: 29 Current gtts upon arrival Propofol: 50mcg/kg/min Insulin: 2units/hr Amicar: 29 Devices: Epicardial wires: yes [x] no [] IABP: yes [] no [x] LVAD: yes [] no [x] Speed: Equipment: Back up controller yes [] no [x] Blood Transfusions Intra Op: yes [] no [x] CellSaver: 400mL Vital Signs including Cardiac Numbers (if indicated) at Conclusion of Hand-off OR CTVICU CO NO SWAN CI CVP SVR PAP Additional Interventions/Misc during Handoff Review of Systems Unable to perform ROS: Intubated Allergies: Patient has no known allergies. Past Medical History: has a past medical history of Coronary artery disease, Diabetes mellitus (HCC), Erectile dysfunction, Hyperlipidemia, Hypertension, Neuropathy, and LILA (obstructive sleep apnea). Past Surgical History: has a past surgical history that includes Coronary angioplasty (05/2012); Coronary stent placement; Achilles tendon surgery (Right); and Colonoscopy. Social History: reports that he has never smoked. His smokeless tobacco use includes chew. He reports current alcohol use of about 2.0 standard drinks of alcohol per week. He reports that he does not currently use drugs. Family History: family history includes Coronary artery disease in his mother; Diabetes in his father and mother; Heart attack in his mother; Stroke in his mother. Medications: Prior to Admission medications Medication Sig Start Date End Date Taking? Authorizing Provider Alcohol Swabs pads For daily blood sugar monitoring 4 times daily for Continuous Glucose Monitor failure 02/24/25 Yes Richard Marquez PA-C aspirin 81 MG EC tablet Take 81 mg by mouth daily. Yes Historical Provider, atorvastatin (Lipitor) 40 MG tablet Take 40 mg by mouth daily. Yes Historical Provider, Blood Glucose Monitoring Suppl (True Metrix Meter) w/Device kit 1 each 4 times daily. For daily blood sugar monitoring 4 times daily for Continuous Glucose Monitor failure 02/24/25 02/24/26 Yes Richard Marquez PA-C chlorhexidine (Peridex) 0.12 % solution Use 15 mL in the mo (more content not included)... Normal [facility] FIBRINOGENon 03-04-2025 FIBRINOGEN 174 mg/dL Low 200-400 [facility] Comment on above: Performed By: #### L [id number], [id number] #### Fibre Composite Technician: EDVIN HAYS ([id number]) [facility] ([facility]) [address] [place] [address] FIBRINOGEN 159 mg/dL Low 200-400 [facility] Comment on above: Performed By: #### L AB103, [id number] #### Fibre Composite Technician: EDVIN HAYS ([id number]) [facility] ([facility]) [address] [place] [address] Fibrinogen Coag (PPP) [Mass/ Vol]on 03-04-2025 Interpretation and review of laboratory results Abnormal [facility] Fibrinogen Coag (PPP) [Mass/ Vol]Ordered By: Vannessa Dawson on 03-04-2025 Interpretation and review of laboratory results Abnormal [facility] Laboratory - Chemistry and C hemistry - challengeon 03-04-2025 Glucose [Mass/Vol] 111 mg/dL High 70 - 100 mg/dL [facility] Glucose [Mass/Vol] 108 mg/dL High 70 - 100 mg/dL [facility] Glucose [Mass/Vol] 116 mg/dL High 70 - 100 mg/dL [facility] Glucose [Mass/Vol] 123 mg/dL High 70 - 100 mg/dL [facility] Glucose [Mass/Vol] 121 mg/dL High 70 - 100 mg/dL [facility] Glucose [Mass/Vol] 139 mg/dL High 70 - 100 mg/dL [facility] Glucose [Mass/Vol] 137 mg/dL High 70 - 100 mg/dL [facility] Magnesium [Mass/Vol] 1.9 mg/dL 1.6 - 2 .6 mg/dL [facility] Glucose [Mass/Vol] 138 mg/dL High 70 - 100 mg/dL [facility] Glucose [Mass/Vol] 118 mg/dL High 70 - 100 mg/dL [facility] Glucose [Mass/Vol] 102 mg/dL High 70 - 100 mg/dL [facility] Glucose [Mass/Vol] 101 mg/dL High 70 - 100 mg/dL [facility] Base excess Calc (BldV) [Moles/Vol] -3.4000 mmol/L Low -3.0 - 3.0 mmol/L [facility] CO2 (BldV) [Partial pressure] 42.6 mm[Hg] [facility] CO2 [Moles/Vol] 23.6 mmol/L Low 24.0 - 28.0 mmol/L [facility] HCO3 (Bld) [Moles/Vol] 22.3 mmol/L Low 23.0 - 27.0 mmol/L [facility] Oxygen (BldV) [Partial pressure] 53 mm[Hg] mm Hg [facility] pH (BldV) 7.337 [pH] 7.330 - 7.430 [facility] Base excess Calc (Bld) [Moles/Vol] -3.3000 mmol/L Low -3.0 - 3.0 mmol/L [facility] CO2 (Bld) [Partial pressure] 36.3 mm[Hg] - PINF [facility] CO2 [Moles/Vol] 22.3 mmol/L Low 23.0 - 27.0 mmol/L [facility] HCO3 (Bld) [Moles/Vol] 21.2 mmol/L 21.0 - 25.0 mmol/L [facility] Oxygen (Bld) [Partial pressure] 187.1 mm[Hg] High [facility] pH (Bld) 7.385 [pH] 7.350 - 7.450 [facility] Glucose [Mass/Vol] 109 mg/dL High 70 - 100 mg/dL [facility] Magnesium [Mass/Vol] 2.5 mg/dL 1.6 - 2 .6 mg/dL [facility] Glucose [Mass/Vol] 149 mg/dL High 70 - 100 mg/dL [facility] Laboratory - Chemistry and C hemistry - challengeOrdered By: Cynthia Chaudhary on 03-04-2025 Base excess Calc (Bld) [Moles/Vol] -2.7000 mmol/L -3.0 - 3.0 mmol/L [facility] CO2 (Bld) [Partial pressure] 37 mm[Hg] - PINF [facility] CO2 [Moles/Vol] 23 mmol/L 23.0 - 27.0 mmol/L [facility] HCO3 (Bld) [Moles/Vol] 21.9 mmol/L 21.0 - 25.0 mmol/L [facility] Oxygen (Bld) [Partial pressure] 193.3 mm[Hg] High [facility] pH (Bld) 7.39 [pH] 7.350 - 7.450 [facility] Laboratory - Coagulationon 0 03-04-2025 Fibrinogen Coag (PPP) [Mass/Vol] 174 mg/dL Low 200 - 400 mg/dL [facility] aPTT Coag (PPP) [Time] 28.4 s 20.0 - 30.5 s [facility] INR Coag (PPP) [Relative time] 1.2 {INR} High 0.9 - 1.1 [facility] Comment on above: Recommended Anticoag ulant Therapy: SEE BELOW ----- INR of 2.0 - 3.0 : - Prophylaxis of Venous Thrombosis (high-risk surgery) - Treatment of Venous Thrombosis - Treatment of Pulmonary Embolism (Includes tissue heart valves, Acute Myocardial Infarction to prevent systemic embolism, Valvular Heart Disease, and Atrial Fibrillation) ----- INR of 2.5 - 3.5 : - Mechanical Prosthetic Valves (high risk) - If oral anticoagulant therapy is used to prevent Myocardial Infarction PT Coag (Bld) [Time] 12.2 s High 9.0 - 1 2.0 s [facility] aPTT Coag (PPP) [Time] 28.5 s 20.0 - 30.5 s [facility] INR Coag (PPP) [Relative time] 1.3 {INR} High 0.9 - 1.1 [facility] Comment on above: Recommended Anticoag ulant Therapy: SEE BELOW ----- INR of 2.0 - 3.0 : - Prophylaxis of Venous Thrombosis (high-risk surgery) - Treatment of Venous Thrombosis - Treatment of Pulmonary Embolism (Includes tissue heart valves, Acute Myocardial Infarction to prevent systemic embolism, Valvular Heart Disease, and Atrial Fibrillation) ----- INR of 2.5 - 3.5 : - Mechanical Prosthetic Valves (high risk) - If oral anticoagulant therapy is used to prevent Myocardial Infarction PT Coag (Bld) [Time] 13.5 s High 9.0 - 1 2.0 s [facility] Laboratory - CoagulationOrde red By: Vannessa Dawson on 03-04-2025 Fibrinogen Coag (PPP) [Mass/Vol] 159 mg/dL Low 200 - 400 mg/dL [facility] Laboratory - Hematology and Cell countson 03-04-2025 Hemoglobin (Bld) [Mass/Vol] 11.3 g/dL 7.0 g/dl [facility] Hemoglobin (Bld) [Mass/Vol] 11.6 g/dL 7.0 g/dl [facility] Laboratory - Hematology and Cell countsOrdered By: Cynthia Chaudhary on 03-04-2025 Hemoglobin (Bld) [Mass/Vol] 10.1 g/dL 7.0 g/dl [facility] MAGNESIUMon 03-04-2025 Magnesium [Mass/Vol] 1.9 mg/dL Normal 1.6-2.6 [facility] Comment on above: Result Comment: GEORGE Hernadez COMMENTS: Higher values can be expected in females during menses. Performed By: #### L AB15, [id number] ####Fibre Composite Technician: EDVIN HAYS ([id number])[address] Magnesium [Mass/Vol] 2.5 mg/dL Normal 1.6-2.6 [facility] Comment on above: Result Comment: GEORGE Hernadez COMMENTS: Higher values can be expected in females during menses. Performed By: #### L AB103, LAB15 #### Fibre Composite Technician: EDVIN HAYS ([id number]) [facility] ([facility]) [address] [place] [address] Magnesium [Mass/Vol]on 03-04 Interpretation and review of laboratory results Normal [facility] Higher values can be expected in females during menses. [facility] Interpretation and review of laboratory results Normal [facility] Higher values can be expected in females during menses. [facility] No Panel Informationon 03-04 Interpretation and review of laboratory results Abnormal [facility] Performed by: [facility], [address] [place] [address] CLIA ID: [id number] [facility] Interpretation and review of laboratory results Abnormal [facility] Performed by: [facility], [address] [place] [address], [place] [address] CLIA ID: [id number] [facility] Interpretation and review of laboratory results Abnormal [facility] Performed by: [facility], [address] [place] [address], [place] [address] CLIA ID: [id number] [facility] Interpretation and review of laboratory results Abnormal [facility] Performed by: [facility], [address] [place] [address], [place] [address] CLIA ID: [id number] [facility] Interpretation and review of laboratory results Abnormal [facility] Performed by: [facility], [address] [place] [address], [place] [address] CLIA ID: [id number] [facility] Interpretation and review of laboratory results Abnormal [facility] Performed by: [facility], [address] [place] [address], [place] [address] CLIA ID: [id number] [facility] Interpretation and review of laboratory results Abnormal [facility] Performed by: [facility], [address] [place] [address], [place] [address] CLIA ID: [id number] [facility] Interpretation and review of laboratory results Abnormal [facility] Performed by: [facility], [address] [place] [address], [place] [address] CLIA ID: [id number] [facility] Interpretation and review of laboratory results Abnormal [facility] Performed by: [facility], [address] [place] [address], [place] [address] CLIA ID: [id number] [facility] Interpretation and review of laboratory results Abnormal [facility] Performed by: [facility], [address] [place] [address], [place] [address] CLIA ID: [id number] [facility] Interpretation and review of laboratory results Abnormal [facility] Performed by: [facility], [address] [place] [address], [place] [address] CLIA ID: [id number] [facility] Interpretation and review of laboratory results Abnormal [facility] Amount Of Oxygen 50% [facility] Interpretation and review of laboratory results Abnormal [facility] Source Of Oxygen Ventilator [facility] Assessment of oxygen ation is best done with an arterial blood gas determination. Reference ranges for pO2, bicarbonate, and base excess are for mixed venous blood. Specimens drawn from a peripheral vein will often have higher values. [facility] Amount Of Oxygen 50% [facility] Interpretation and review of laboratory results Abnormal [facility] Source Of Oxygen Ventilator [facility] Interpretation and review of laboratory results Abnormal [facility] Performed by: [facility], [address] [place] [address] CLIA ID: [id number] [facility] Interpretation and review of laboratory results Abnormal [facility] Interpretation and review of laboratory results Abnormal [facility] Performed by: [facility], [address] [place] [address] CLIA ID: [id number] [facility] No Panel InformationOrdered By: Cynthia Chaudhary on 03-04-2025 Amount Of Oxygen 100 [facility] Interpretation and review of laboratory results Abnormal [facility] Source Of Oxygen Ventilator [facility] Nursing Noteon 03-04-2025 Nursing Note Message sent regardi ng no bacitracin ointment and swish and spit ordered. 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 Procedures CORONARY ARTERY BYPASS GRAFT 60122 - HI CABG W/ARTERIAL GRAFT THREE ARTERIAL GRAFTS ECHOCARDIOGRAM, TRANSESOPHAGEAL 88033 - HI ECHO TRANSESOPHAG R-T 2D W/PRB IMG ACQUISJ I&R Xiphoidectomy Surgeons * Jewel Lane - Primary Procedure Summary Anesthesia: General ASA: IV Estimated Blood Loss: 250cc returned via cellsaver Drains: Chest Tube 1 Mediastinal 24 Fr (Active) Function -20 cm H2O 03/04/25 1218 Chest Tube Air Leak No 03/04/25 1218 Drainage Description Sanguineous 03/04/25 1218 Dressing Status Clean, dry & intact 03/04/25 1218 Site Assessment Clean;Dry;Intact 03/04/25 1218 Surrounding Skin Dry;Intact 03/04/25 1218 Output (mL) 30 mL 03/04/25 1218 NG/OG Tube [facility] mouth (Active) Placement Verification Auscultation 03/04/25 1218 External Catheter Length (cm) 60 cm 03/04/25 1218 Site Assessment Clean;Dry;Intact 03/04/25 1218 Status Low intermittent suction 03/04/25 1218 Urethral Catheter Temperature probe;Straight-tip (Active) Catheter Indications Hourly I&Os (Critical Care ONLY) 03/04/25 1218 Site Assessment Clean;Skin intact 03/04/25 1218 Collection Container Standard drainage bag 03/04/258 Securement Method Securing device 03/04/258 Catheter Best Practices Drainage tube clipped to bed;Catheter secured to thigh;Tamper seal intact;Bag below bladder;Drainage bag less than half full;Bag not on floor;Lack of dependent loop in tubing 03/04/25 1218 Catheter Status Draining;Patent 03/04/25 1218 Output (mL) 25 mL 03/04/25 1218 Specimens ID Source Type Tests Collected By Collected At Frozen? Priority Lab ID 1 Other Tissue TISSUE EXAM Jewel Lane MD 03/04/25 1133 Description: XIPHOID Staff: Retail Beauty Specialist: Randall Lamb RN Relief Retail Beauty Specialist: Jennifer Fairchild RN Scrub Person: Romeo Sims Assist: Sasha Moreno RN Indications: Wallace Turk is an 59 y.o. male with a history of exertional chest pain. He saw cardiology and had an abnormal stress test, with left heart catheterization showing significant multivessel coronary disease. CABG was recommended, and after discussion of the risks and benefits of the procedure he and his family agreed to proceed forward with the operation. Procedure in detail: CABG x 3 (MEADE-LAD, SVG-OM 2, SVG-D2) The patient was taken to the operating room, where the patient was intubated and general anesthesia was induced, Abarca inserted, and a central line and arterial line were placed. Preoperative KWAME demonstrated slightly depressed EF at 40% and no significant valvular abnormalities. The patient was prepped and draped in usual sterile fashion. A timeout was performed verifying the correct patient, procedure, and operative plan. Appropriate VTE prophylaxis was administered. Antibiotics were given initially and redosed as appropriate throughout the case. A midline sternotomy was created with a reciprocating saw and hemostasis was achieved. Left lower extremity endoscopic vein harvesting was performed. The left the PDA was an extremely small vessel internal mammary artery was harvested in a skeletonized fashion. The mediastinum was then dissected, the pericardium was opened, and pericardial stay sutures were placed. Heparin was given and the aorta was cannulated in standard fashion. The distal end of the mammary artery was then taken down from the chest wall and prepped in papaverine solution. Venous cannula was inserted in the right atrial appendage. After confirmation of adequate ACT above 480 seconds, the patient was placed on cardiopulmonary bypass with good flows. The aortic root vent/antegrade cardioplegia catheter was inserted, followed by the retrograde cardioplegia catheter. The aortic cross-clamp was then placed while bypass was at low flow, and cold blood antegrade cardioplegia was given followed by retrograde cardioplegia with quick arrest of the heart. Cardioplegia was then redosed every 15-30 minutes throughout the case. A mesh sling was then positioned to support the heart while examining targets and performing distal anastomoses. Distal targets were then examined for bypass. The PDA was extremely small vessel and diffusely calcified, not amenable for grafting. The OM 2 was a moderately large size vessel and saphenous vein was anastomosed to this target with 7-0 Prolene. In a similar fashion, the second diagonal branch was also moderately large vessel and saphenous vein was anastomosed to this target as well with 7-0 Prolene. After the distal anastomoses were creat (more content not included)... Normal [facility] PHOSPHORUSon 03-04-2025 Phosphate [Mass/Vol] 3.4 mg/dL Normal 2.3-4.7 [facility] Comment on above: Performed By: #### L AB103, LAB15 #### Fibre Composite Technician: EDVIN HAYS ([id number]) [facility] ([facility]) [address] [place] [address] PROTIME AND APTTon aPTT Coag (Bld) [Time] 28.4 s Normal 20.0-30.5 [facility] Comment on above: Performed By: #### L AB314, [id number] #### Fibre Composite Technician: EDIVN HAYS ([id number]) [facility]) [address] [place] [address] INR Coag (PPP) [Relative time] 1.2 {INR} High 0.9-1.1 [facility] Comment on above: Result Comment: Danny mmended Anticoagulant Therapy: SEE BELOW ----- INR of 2.0 - 3.0 : - Prophylaxis of Venous Thrombosis (high-risk surgery) - Treatment of Venous Thrombosis - Treatment of Pulmonary Embolism (Includes tissue heart valves, Acute Myocardial Infarction to prevent systemic embolism, Valvular Heart Disease, and Atrial Fibrillation) ----- INR of 2.5 - 3.5 : - Mechanical Prosthetic Valves (high risk) - If oral anticoagulant therapy is used to prevent Myocardial Infarction Performed By: #### Vicente AB314, [id number] #### Fibre Composite Technician: EDVIN HAYS ([id number]) [address] PT Coag (PPP) [Time] 12.2 s High 9.0-12.0 [facility] Comment on above: Performed By: #### Vicente AB314, [id number] #### Fibre Composite Technician: EDVIN HAYS ([id number]) [address] aPTT Coag (Bld) [Time] 28.5 s Normal 20.0-30.5 [facility] Comment on above: Performed By: #### L AB103, LAB15 #### Fibre Composite Technician: EDVIN HAYS ([id number]) [facility]) [address] [place] [address] INR Coag (PPP) [Relative time] 1.3 {INR} High 0.9-1.1 [facility] Comment on above: Result Comment: Danny mmended Anticoagulant Therapy: SEE BELOW ----- INR of 2.0 - 3.0 : - Prophylaxis of Venous Thrombosis (high-risk surgery) - Treatment of Venous Thrombosis - Treatment of Pulmonary Embolism (Includes tissue heart valves, Acute Myocardial Infarction to prevent systemic embolism, Valvular Heart Disease, and Atrial Fibrillation) ----- INR of 2.5 - 3.5 : - Mechanical Prosthetic Valves (high risk) - If oral anticoagulant therapy is used to prevent Myocardial Infarction Performed By: #### L AB103, LAB15 #### Fibre Composite Technician: EDVIN HAYS ([id number]) [facility] ([facility]) [address] [place] [address] PT Coag (PPP) [Time] 13.5 s High 9.0-12.0 [facility] Comment on above: Performed By: #### L AB103, LAB15 #### Fibre Composite Technician: EDVIN HAYS ([id number]) [facility] ([facility]) [address] [place] [address] Phosphate [Moles/Vol]on 02-12 Interpretation and review of laboratory results Normal [facility] Phosphate [Mass/Vol] 3.4 mg/dL 2.3 - 4 .7 mg/dL [facility] Vital signson 03-04-2025 Oxygen saturation in Venous blood 82.7 % [facility] XR CHEST 1 VIEWon 03-04-2025 XR CHEST 1 VIEW Patient Name: WALLACE TURK : 1965 [facility]#: [id number] Exam Date/Time: 03/04/2025 12:46 Procedure: XR CHEST 1 VIEW Ordering Provider: ROMERO ANDREW Reason For Exam: Post op open heart surgery; ETT placement AP CHEST X-RAY CLINICAL INDICATION: Post op open heart surgery; ETT placement TECHNIQUE: AP portable x-ray of the chest. COMPARISON: February 24, 2025 FINDINGS: Lines/Tubes: Tip of endotracheal tube is approximately 2 cm above the katarina. Right-sided central venous catheter is noted with distal tip at the level of the junction of the brachiocephalic veins. Tip of nasogastric tube overlies defect region of the stomach. Left-sided chest tube is noted. Mediastinal drain is noted. Heart/Mediastinum: Within normal limits Lungs: Left basilar atelectasis is noted. Bones: Remote fracture of the left clavicle is noted. IMPRESSION: Atelectasis in the left lung base. Lines and tubes as described. Report Dictated on Electronically Signed By: Wallace Sanchez MD Electronically Signed Date/Time: 03/04/2025 2:52 PM EDT [facility] XR Chest Single viewon 03-04 Atelectasis in the left lung base. Lines and tubes as described. Report Dictated on Electronically Signed By: Wallace Sanchez MD Electronically Signed Date/Time: 03/04/2025 2:52 PM EDT [facility] Patient Name: WALLACE TURK : 1965 Exam Date/Time: 03/04/2025 12:46 Procedure: XR CHEST 1 VIEW Ordering Provider: ROMERO ANDREW Reason For Exam: Post op open heart surgery; ETT placement AP CHEST X-RAY CLINICAL INDICATION: Post op open heart surgery; ETT placement TECHNIQUE: AP portable x-ray of the chest. COMPARISON: February 24, 2025 FINDINGS: Lines/Tubes: Tip of endotracheal tube is approximately 2 cm above the katarina. Right-sided central venous catheter is noted with distal tip at the level of the junction of the brachiocephalic veins. Tip of nasogastric tube overlies defect region of the stomach. Left-sided chest tube is noted. Mediastinal drain is noted. Heart/Mediastinum: Within normal limits Lungs: Left basilar atelectasis is noted. Bones: Remote fracture of the left clavicle is noted. [facility] Wallace Sanchez MD - 03/04/2025 Patient Name: WALLACE TURK : 1965 Exam Date/Time: 03/04/2025 12:46 Procedure: XR CHEST 1 VIEW Ordering Provider: ROMERO ANDREW Reason For Exam: Post op open heart surgery; ETT placement AP CHEST X-RAY CLINICAL INDICATION: Post op open heart surgery; ETT placement TECHNIQUE: AP portable x-ray of the chest. COMPARISON: February 24, 2025 FINDINGS: Lines/Tubes: Tip of endotracheal tube is approximately 2 cm above the katarina. Right-sided central venous catheter is noted with distal tip at the level of the junction of the brachiocephalic veins. Tip of nasogastric tube overlies defect region of the stomach. Left-sided chest tube is noted. Mediastinal drain is noted. Heart/Mediastinum: Within normal limits Lungs: Left basilar atelectasis is noted. Bones: Remote fracture of the left clavicle is noted. IMPRESSION: Atelectasis in the left lung base. Lines and tubes as described. Report Dictated on Electronically Signed By: Wallace Sanchez MD Electronically Signed Date/Time: 03/04/2025 2:52 PM EDT [facility]iology Study observation (narrative) [employer] XR Chest Single viewOrdered By: Wallace Sanchez on 03-04-2025 [employer] Work Phone: 29on 03-03-2025 29 Addended by: RICHARD GALLARDO. on: 03/03/2025 01:10 PM Modules accepted: Orders [facility] 36on 03-03-2025 36 Instructed Wallace cabrera o increase the Lantus to 12 units daily and to increase the Humalog to 4 units three times daily before meals (as long as BG above 70). Confirms understanding of the dosing instructions. He is aware the inpatient team will be following him after his surgery as we discussed this yesterday, and also remembers about the differences and delays between blood glucose levels and CGM readings. He has no questions at this time. Normal [facility] 36 Hi Shadia, It looks like this is just the C-Peptide without a glucose and a MACR - both of which were Within Normal Limits. I ordered additional labs at our visit that I do not see on this document. Thank you! Richard Marquez PA-C Normal [facility] 36 Hi Crystal, Can you please discuss with the patient that it is normal for the Continuous Glucose Monitor and Meter to be off as the meter is using blood to monitor Glucose levels and the Continuous Glucose Monitor is monitoring interstitial fluid so it will always be a bit behind the Meter, but gives us good data and trends. I reviewed his download and would recommend he go up on the Lantus to 12 units every day and up on the Humalog to 4 units if eating a full meal and Blood Glucose over 70. Orders have been sent. When he has the surgery, his Blood Glucose will be managed by the inpatient team. Please inform the patient. Thank you! Richard Marquez PA-C Normal [facility] L3410.9992on 03-03-2025 [facility] COM[facility] Normal . [facility] Comment on above: Order Comment: [id number] 5ZINC T4 AB SERUM FRZ Result Comment: Test Ordered: [id number] ZNT8 Antibodies ZNT8 Antibodies <15 U/mL ES Reference Range: . Reference Range: All Ages: <15 Negative > or =15 Positive Performed at: [employer] [address] [place] [id number] Transfer Clerk: Magdi Monzon MD, Phone: [phone] Performed at: [facility] [employer] [id number] Transfer Clerk: Nadir Mock PhD, Phone: [phone] Performed By: #### L 502.0250, L3100.7750, L501.9520, L3410.9992, L500.4100, L506.1001, L3410.9994, L506.0400, L3410.9996, L500.4050 ####[facility] [id number] [place], [address] L3410.9996on 03-03-2025 [facility]. 3 COMMENT Normal . [facility] Comment on above: Order Comment: 07134 1IA2 AB SERUM FRZ Result Comment: Test Ordered: [id number] IA-2 Autoantibodies IA-2 Autoantibodies <7.5 U/mL ES Reference Range: . Reference Range: <7.5 Negative > or = 7.5 Positive Performed at: [employer] [address] [place] [id number] Transfer Clerk: Magdi Monzon MD, Phone: [phone] Performed at: [facility] [employer] [id number] Transfer Clerk: Nadir Mock PhD, Phone: [phone] Performed By: #### L 502.0250, L3100.7750, L501.9520, L3410.9992, L500.4100, L506.1001, L3410.9994, L506.0400, L3410.9996, L500.4050 ####[facility] [id number] [place], [address] 36on 03-02-2025 36 Spoke with Wallace chavez bout blood glucose testing and use of insulin. He confirms he is using the insulin as prescribed 15 minutes before his meals. Also has been logging BG fingerstick results since he is not confident with the CGM Dexcom readings. He will continue to do finger sticks and record the data 4 times daily. Wallace reports he is undergoing heart bypass surgery at [facility] on Sunday 03/04. We discussed post-operative diabetes management and possibility of increased insulin dosing after his surgery for a period of time. Answered all questions to satisfaction. Dexcom download is on media tab for review though has only had sensor on since last week office visit. Normal [facility] 36on 03-01-2025 36 LVM for patient. Gav e patient msg as written by provider. Normal [facility] L3410.9994on 03-01-2025 [facility] Misc. 2 COMMENT Normal . [facility] Comment on above: Order Comment: 43552 8GAD AB SERUM RMT Result Comment: Test Ordered: [id number] MICHELLE-65 Autoantibody MICHELLE-65 <5.0 U/mL Reference Range: 0.0-5.0 Performed at: - [facility] [id number] Transfer Clerk: Sana Manuel MD, Phone: [phone] Performed at: - [facility] [id number] Transfer Clerk: Nadir Mock PhD, Phone: [phone] Performed By: #### L 502.0250, L3100.7750, L501.9520, L3410.9992, L500.4100, L506.1001, L3410.9994, L506.0400, L3410.9996, L500.4050 ####[facility] [address] [place], [address] 36on 02-28-2025 36 Hi Larissa, Patient was just seen a couple of days ago for the first time and we started a weight-based insulin at that time. Patient did not bring Blood Glucose Logs and was not checking Blood Glucose so had to base the decision on his A1C, weight, and Blood Glucose in the office. I would recommend he use the insulin as recommended for 1 week and bring us logs so we can review and titrate as appropriate or sooner if Blood Glucose consistently under 70. Thank you! Richard Marquez PA-C Normal [facility] 36 Patient's further questions if applicable: Pt states he would like to discuss new insulin he has some questions regarding his numbers. Please advise. Normal [facility] Laboratory - Chemistry and C hemistry - challengeon 02-28-2025 Glucose [Mass/Vol] 202 mg/dL High 70 - 100 mg/dL [facility] No Panel Informationon 02-28 Interpretation and review of laboratory results Abnormal [facility] Performed by: [facility], [address] [place] [address] CLIA ID: [id number] [facility] Nursing Noteon 02-28-[address] Lane anaya e cancelled. Patient IV removed at this time. Normal [facility] Nursing Note Blood sugar 202 no sliding scale insulin orders at this time. Per Dr. Clarke patient will be monitored in OR and will be covered as needed. No insulin orders given at this time. Normal [facility] Duplex ultrasound of carotid artery reportOrdered By: Kirby Caldwell on 02-27-2025 Study report [facility] [address] [place] [address] Carotid Duplex Ultrasound 02/25/25 1413 MR#: [id number] Acct: [id number] Name: WALLACE TURK Rep #:[id number] : 1965 59 From: Kirby Caldwell MD Attending Dr: JEWEL LANE Status : REG CLI Ordering Dr: JEWEL LANE Date: Location: [facility] Sex: M C Admitted: Reason For Study Reason For Study: Carotid bruit, Pre op Rt. Velocities/BP Lt. Velocities/BP Prox CCA 94.9/16.8 cm/sec. Prox CCA 100.3/16.8 cm/sec. Mid CCA 99.2/16.8 cm/sec. Mid CCA 87.2/14.6 cm/sec. Dist CCA 83.9/20.1 cm/sec. Dist CCA 76.2/14.6 cm/sec. Prox ICA 104.7/18.8 cm/sec. Prox ICA 61.9/13.5 cm/sec. Mid ICA 88.8/26.2 cm/sec. Mid ICA 72.9/27.8 cm/sec. Dist ICA 80.7/21.2 cm/sec. Dist ICA 50.6/18.3 cm/sec. Rt. ICA/CCA = 1.06. Lt. ICA/CCA = 0.84. Prox ECA 128.4/11.5 cm/sec. Prox ECA 94.9/13.5 cm/sec. Rt. Vert. 51.3/12.6 cm/sec. Lt. Vert. 48.7/13.5 cm/sec. Right Extracranial There is intimal thickening but no significant atherosclerotic plaque noted in the right common carotid artery. There is intimal thickening but no significant atherosclerotic plaque noted in the right internal carotid artery. There is intimal thickening but no significant atherosclerotic plaque noted in the right external carotid artery. Antegrade flow is noted in the right vertebral artery. Left Extracranial There is intimal thickening but no significant atherosclerotic plaque noted in the left common carotid artery. There is intimal thickening but no significant atherosclerotic plaque noted in the left internal carotid artery. There is intimal thickening but no significant atherosclerotic plaque noted in the left external carotid artery. Antegrade flow is noted in the left vertebral artery. Procedure Carotid Duplex 19846. This is a Carotid Duplex examination using B-mode, color flow and specral Doppler. Exam performed in department. VL/Carotid Duplex Ultrasound Interpretation Summary No significant atherosclerotic plaque or stenosis noted in the internal carotid arteries bilaterally. Flow within the vertebral arteries is antegrade bilaterally. ___ Ordering Physician: JEWEL LANE Performed By: Saray Guzman RVT 02/27/252122 Date _ Kirby Caldwell MD CC: JEWEL LANE; No Primary Care Physician ~ Date Dictated: 02/25/25 1413 Date Transcribed: 02/27/252122 District Agent: Signed [facility] Other Phone: Venous duplex ultrasound rep ortOrdered By: Kirby Caldwell on 02-27-2025 [facility] [address] [place] [address]. [place] [address] Saphenous Vein Mapping, Bilat 02/25/25 1429 MR#: [id number] Acct: [id number] Name: WALLACE TURK Rep #:[id number] : 1965 59 From: Kirby Caldwell MD Attending Dr: JEWEL LANE Status : REG CLI Ordering Dr: JEWEL LANE Date: Location: [facility] Sex: M C Admitted: Reason For Study Reason For Study: Pre op RIGHT LEFT GSV prox thigh, 0.57 x 0.56 cm. GSV prox thigh, 0.59 x 0.60 cm. GSV mid thigh, 0.44 x 0.46 cm. GSV mid thigh,0.57 x 0.62 cm. GSV distal thigh, 0.36 x 0.38 cm. GSV distal thigh, 0.51 x 0.55 cm. GSV knee, 0.41 x 0.41 cm. GSV knee, 0.53x 0.57 cm. GSV prox calf, 0.25 x 0.27 cm. GSV prox calf,0.29 x 0.29 cm. Branches noted extending from GSV prox calf. Branches notedextending from GSV prox calf. GSV mid calf, 0.26 x 0.26 cm. GSV mid calf, 0.36 x 0.38 cm. GSV distal calf, 0.18 x 0.18 cm. GSV distal calf, 0.32 x 0.39 cm. SSV prox, 0.17 x 0.18 cm. SSV prox, 0.35x 0.40 cm. SSV mid, 0.29 x 0.28 cm. SSV mid, 0.35 x 0.39 cm. SSV distal, 0.26 x 0.28 cm. SSV distal, 0.35 x 0.41 cm. GSV and SSV are compressible. GSV and SSV are compressible. Procedure This is a venous duplex using B-mode, color flow and spectral Doppler. Exam performed in department. VL/Saphenous Vein Mapping, Bilat Interpretation Summary The great saphenous veins and small saphenous veins are patent and compressible bilaterally. Branches from the great saphenous veins are noted in the proximal calves bilaterally. Segmental diameters of the great and small saphenous veins are as documented above. ___ Ordering Physician: JEWEL LANE Performed By: Saray Guzman Leila 02/27/252136 Date _ Kirby Caldwell MD CC: JEWEL LANE; No Primary Care Physician ~ Date Dictated: 02/25/25 1429 Date Transcribed: 02/27/252136 District Agent: Signed [facility] Other Phone: C-Peptideon 02-26-2025 C PEPTIDE 2.0 ng/mL Normal 1.1-4.4 [facility] Comment on above: Result Comment: C-Pe ptide reference interval is for fasting patients. Performed at: - [facility] [address] [facility], [place], [place] [id number] Transfer Clerk: Nadir Mock PhD, Phone: [phone] Performed By: #### L 502.3705, L3100.5386, L501.2945, L3410.9992, L500.4100, L506.1001, L3410.9994, L506.0400, L3410.9996, L500.4050 ####[facility] [address] [place], [place], [address] 36on 02-25-2025 36 Called pharmacy, Art castañeda went through. 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 Normal [facility] 36 Name of caller: Aaron patino Contact phone number: [phone] Relationship to Patient: patient Provider: Jimmy JEFF Practice: Endo Chief Complaint/Reason for Call: Pt states insurance needs a PA for medication insulin glargine (Lantus) 100 UNIT/ML pen [[id number]] Or if an alternative needs to be sent in. Pt wants to make urgently aware needs BSL levels down prior to bypass surgery on 02/28/25. Pt is at 300 BSL and needs to be at 250 or lower Best time of day caller can be reached: Any Patient advised that office/PCP has 24-48 business hours to return their call: Yes Normal [facility] 36 Noted. Notified pt's . Discussed the importance of compliance with medications and diet. She verbalizes understanding. Closing encounter. Normal [facility] Anion gap in Serum or Plasma on 02-25-2025 Anion gap [Moles/Vol] 14 mmol/L 11-25 [facility] BUN/creatinine ratioon 02-25 Urea nitrogen/Creatinine [Mass ratio] 24.4 mg/mg High 05-02 [facility] Bilirubin, totalon Bilirubin [Mass/Vol] 0.60 mg/dL 0.00-1.30 [facility] Calculated very low density lipoprotein (VLDL) cholesterol measurementon 02-25-2025 Calculated very low density lipoprotein (VLDL) cholesterol measurement 20 mg/dL [facility] Carbon dioxide, total [Moles /volume] in Central venous bloodon 02-25-2025 CO2 [Moles/Vol] 22.8 mmol/L 21.0-32.0 [facility] Carotid Duplex Ultrasoundon 02-25-2025 Carotid Duplex Ultrasound [facility] [place] [address] Carotid Duplex Ultrasound 02/25/25 1413 MR#: [id number] Acct: [id number] Name: WALLACE TURK Rep #: [id number] : 1965 59 From: Kirby Caldwell MD Attending Dr: JEWEL LANE Status: REG CLI Ordering Dr: JEWEL LANE Date: 02/25/25 Location: [facility] Sex: M C Admitted: Reason For Study Reason For Study: Carotid bruit, Pre op Rt. Velocities/BP Lt. Velocities/BP Prox CCA 94.9/16.8 cm/sec. Prox CCA 100.3/16.8 cm/sec. Mid CCA 99.2/16.8 cm/sec. Mid CCA 87.2/14.6 cm/sec. Dist CCA 83.9/20.1 cm/sec. Dist CCA 76.2/14.6 cm/sec. Prox ICA 104.7/18.8 cm/sec. Prox ICA 61.9/13.5 cm/sec. Mid ICA 88.8/26.2 cm/sec. Mid ICA 72.9/27.8 cm/sec. Dist ICA 80.7/21.2 cm/sec. Dist ICA 50.6/18.3 cm/sec. Rt. ICA/CCA = 1.06. Lt. ICA/CCA = 0.84. Prox ECA 128.4/11.5 cm/sec. Prox ECA 94.9/13.5 cm/sec. Rt. Vert. 51.3/12.6 cm/sec. Lt. Vert. 48.7/13.5 cm/sec. Right Extracranial There is intimal thickening but no significant atherosclerotic plaque noted in the right common carotid artery. There is intimal thickening but no significant atherosclerotic plaque noted in the right internal carotid artery. There is intimal thickening but no significant atherosclerotic plaque noted in the right external carotid artery. Antegrade flow is noted in the right vertebral artery. Left Extracranial There is intimal thickening but no significant atherosclerotic plaque noted in the left common carotid artery. There is intimal thickening but no significant atherosclerotic plaque noted in the left internal carotid artery. There is intimal thickening but no significant atherosclerotic plaque noted in the left external carotid artery. Antegrade flow is noted in the left vertebral artery. Procedure Carotid Duplex 47027. This is a Carotid Duplex examination using B-mode, color flow and specral Doppler. Exam performed in department. VL/Carotid Duplex Ultrasound Interpretation Summary No significant atherosclerotic plaque or stenosis noted in the internal carotid arteries bilaterally. Flow within the vertebral arteries is antegrade bilaterally. ___ Ordering Physician: JEWEL LANE Performed By: Saray Guzman RVT 02/27/252122 Date Kirby Caldwell MD CC: JEWEL LANE; No Primary Care Physician Date Dictated: 02/25/25 1413 Date Transcribed: 02/27/252122 District Agent: Signed Normal [facility] Chloride assayon 02-25-2025 Chloride [Moles/Vol] 102 mmol/L 98-108 [facility] Comprehensive Metabolic Prof ilon 02-25-2025 Albumin [Mass/Vol] 4.2 g/dL Normal 3.5-5.0 [facility] Comment on above: Performed By: #### L 502.0250, L3100.7750, L501.9520, L3410.9992, L500.4100, L506.1001, L3410.9994, L506.0400, L3410.9996, L500.4050 #### [facility] [address] [place], [address] Albumin/Globulin [Mass ratio] 1.5 {ratio} Normal 0.9-2.4 [facility] Comment on above: Performed By: #### L 502.0250, L3100.7750, L501.9520, L3410.9992, L500.4100, L506.1001, L3410.9994, L506.0400, L3410.9996, L500.4050 #### [facility] [address] [facility] [place], [address] ALK PHOS 100 U/L Normal 40-129 [facility] Comment on above: Performed By: #### L 502.0250, L3100.7750, L501.9520, L3410.9992, L500.4100, L506.1001, L3410.9994, L506.0400, L3410.9996, L500.4050 #### [facility] [address] [facility] [address] [place], [place], [id number] ALT [Catalytic activity/Vol] 21 U/L Normal <=46 [facility] Comment on above: Performed By: #### L 502.0250, L3100.7750, L501.9520, L3410.9992, L500.4100, L506.1001, L3410.9994, L506.0400, L3410.9996, L500.4050 #### [facility] [address] [place], [address] AST [Catalytic activity/Vol] 20 U/L Normal <=37 [facility] Comment on above: Result Comment: Hemo lysis present, Results??could be affected. ?? Performed By: #### L 502.0250, L3100.7750, L501.9520, L3410.9992, L500.4100, L506.1001, L3410.9994, L506.0400, L3410.9996, L500.4050 #### [facility] [address] [place], [address] Bilirubin [Mass/Vol] 0.60 mg/dL Normal 0.00-1.30 [facility] Comment on above: Performed By: #### L 502.0250, L3100.7750, L501.9520, L3410.9992, L500.4100, L506.1001, L3410.9994, L506.0400, L3410.9996, L500.4050 #### [facility] [address] [place], [address] BUN/CRE 24.4 RATIO High 10-20 [facility] Comment on above: Performed By: #### L 502.0250, L3100.7750, L501.9520, L3410.9992, L500.4100, L506.1001, L3410.9994, L506.0400, L3410.9996, L500.4050 #### [facility] [address] [place], [address] Calcium [Mass/Vol] 9.2 mg/dL Normal 7.6-11.0 [facility] Comment on above: Performed By: #### L 502.0250, L3100.7750, L501.9520, L3410.9992, L500.4100, L506.1001, L3410.9994, L506.0400, L3410.9996, L500.4050 #### [facility] [address] [place], [address] Chloride [Moles/Vol] 102 mmol/L Normal 98-108 [facility] Comment on above: Performed By: #### L 502.0250, L3100.7750, L501.9520, L3410.9992, L500.4100, L506.1001, L3410.9994, L506.0400, L3410.9996, L500.4050 #### [facility] [address] [place], [address] CO2 [Moles/Vol] 22.8 mmol/L Normal 21.0-32.0 [facility] Comment on above: Performed By: #### L 502.0250, L3100.7750, L501.9520, L3410.9992, L500.4100, L506.1001, L3410.9994, L506.0400, L3410.9996, L500.4050 #### [facility] [address] [place], [address] Creatinine [Mass/Vol] 0.84 mg/dL Normal 0.70-1.20 [facility] Comment on above: Performed By: #### L 502.0250, L3100.7750, L501.9520, L3410.9992, L500.4100, L506.1001, L3410.9994, L506.0400, L3410.9996, L500.4050 #### [facility] [address] [place], [address] GAP 14 Normal 5-15 [facility] Comment on above: Performed By: #### L 502.0250, L3100.7750, L501.9520, L3410.9992, L500.4100, L506.1001, L3410.9994, L506.0400, L3410.9996, L500.4050 #### [facility] [address] [place], [address] GFR/1.73 sq M.predicted among non-blacks MDRD (S/P/Bld) [Vol rate/Area] 102 mL/min/{1.73_m2} Normal >60 [facility] Comment on above: Result Comment: mL/m in/1.73m2 CKD-EPI Creatinine Equation (2020) Performed By: #### L 502.0250, L3100.7750, L501.9520, L3410.9992, L500.4100, L506.1001, L3410.9994, L506.0400, L3410.9996, L500.4050 #### [facility] [address] [place], [address] Globulin (S) [Mass/Vol] 2.7 g/dL Normal 2.2-4.2 [facility] Comment on above: Performed By: #### L 502.0250, L3100.7750, L501.9520, L3410.9992, L500.4100, L506.1001, L3410.9994, L506.0400, L3410.9996, L500.4050 #### [facility] [address] [place], [address] Glucose [Mass/Vol] 288 mg/dL High 70-99 [facility] Comment on above: Performed By: #### L 502.0250, L3100.7750, L501.9520, L3410.9992, L500.4100, L506.1001, L3410.9994, L506.0400, L3410.9996, L500.4050 #### [facility] [address] [place], [address] Potassium [Moles/Vol] 4.0 mmol/L Normal 3.3-5.1 [facility] Comment on above: Result Comment: Hemo lysis present, Results??could be affected. ?? Performed By: #### L 502.0250, L3100.7750, L501.9520, L3410.9992, L500.4100, L506.1001, L3410.9994, L506.0400, L3410.9996, L500.4050 #### [facility] [address] [place], [address] Sodium [Moles/Vol] 138 mmol/L Normal 133-145 [facility] Comment on above: Performed By: #### L 502.0250, L3100.7750, L501.9520, L3410.9992, L500.4100, L506.1001, L3410.9994, L506.0400, L3410.9996, L500.4050 #### [facility] [address] [place], [place], [id number] T PROT 6.9 g/dL Normal 5.9-8.4 [facility] Comment on above: Performed By: #### L 502.0250, L3100.7750, L501.9520, L3410.9992, L500.4100, L506.1001, L3410.9994, L506.0400, L3410.9996, L500.4050 #### [facility] [address] [facility] [place], [place], [id number] Urea nitrogen [Mass/Vol] 21 mg/dL High 10-30 [facility] Comment on above: Performed By: #### L 502.0250, L3100.7750, L501.9520, L3410.9992, L500.4100, L506.1001, L3410.9994, L506.0400, L3410.9996, L500.4050 #### [facility] [address] [facility] [place], [place], [id number] Glomerular filtration rate ( GFR) estimation/1.73 sq m using serum, plasma, or whole bon 02-25-2025 GFR/1.73 sq M.predicted among non-blacks MDRD (S/P/Bld) [Vol rate/Area] 102 mL/min/{1.73_m2} >60 [facility] Comment on above: mL/min/1.73m2 CKD-EP I Creatinine Equation (2020) LDL calc ser/plason 02-26-20 25 Cholesterol in LDL [Mass/Vol] 82 mg/dL [facility] Comment on above: Remtxzjxil=714-051 m g/dL & Higher Ozfy=401 mg/dL or greaterFriedwald Equation for LDL-C Laboratory - Chemistry and C hemistry - challengeon 02-25-2025 AST [Catalytic activity/Vol] 20 U/L <38 [facility] Comment on above: Hemolysis present, R esults could be affected. Lipid Profileon 02-25-2025 CHOL:HDL 3.27 Normal [facility] Comment on above: Performed By: #### L 502.0250, L3100.7750, L501.9520, L3410.9992, L500.4100, L506.1001, L3410.9994, L506.0400, L3410.9996, L500.4050 #### [facility] [address] [place], [address] Cholesterol [Mass/Vol] 146 mg/dL Normal <=200 [facility] Comment on above: Result Comment: Chol esterol level, Desirable <200 mg/dL Borderline high cholesterol 200-239 mg/dL High cholesterol >=240 mg/dL Recommendations of the NCEP Adult Treatment Panel for the following risk-cutoff thresholds for the [place] population. Performed By: #### L 502.0250, L3100.7750, L501.9520, L3410.9992, L500.4100, L506.1001, L3410.9994, L506.0400, L3410.9996, L500.4050 #### [facility] [address] [place], [address] Cholesterol in HDL [Mass/Vol] 45 mg/dL Normal [facility] Comment on above: Result Comment: Padmini onal Cholesterol Education Program (NCEP) guidelines: <40 mg/dL: Low HDL-cholesterol (major risk factor for CHD) >= 60 mg/dL: High HDL-cholesterol (negative risk factor for CHD) HDL-cholesterol is affected by a number of factors, e.g. smoking, exercise, hormones, sex and age. Performed By: #### L 502.0250, L3100.7750, L501.9520, L3410.9992, L500.4100, L506.1001, L3410.9994, L506.0400, L3410.9996, L500.4050 #### [facility] [address] [place], [address] Cholesterol in LDL [Mass/Vol] 82 mg/dL Normal [facility] Comment on above: Result Comment: Bord rknvcg=143-054 mg/dL Higher Mmam=275 mg/dL or greater Friedwald Equation for LDL-C Performed By: #### L 502.0250, L3100.7750, L501.9520, L3410.9992, L500.4100, L506.1001, L3410.9994, L506.0400, L3410.9996, L500.4050 #### [facility] [address] [place], [address] Cholesterol in VLDL [Mass/Vol] 20 mg/dL Normal 5-40 [facility] Comment on above: Performed By: #### L 502.0250, L3100.7750, L501.9520, L3410.9992, L500.4100, L506.1001, L3410.9994, L506.0400, L3410.9996, L500.4050 #### [facility] [address] [place], [address] Triglyceride [Mass/Vol] 99 mg/dL Normal [facility] Comment on above: Result Comment: The drugs N-Acetylcysteine and Metamizole may falsely depress this assay. Normal range: <150 mg/dL Borderline High: 150-199 mg/dL High: 200-499 mg/dL Very High: >500 mg/dL Performed By: #### L 502.0250, L3100.7750, L501.9520, L3410.9992, L500.4100, L506.1001, L3410.9994, L506.0400, L3410.9996, L500.4050 #### [facility] [address] [place], [address] Microalb:Creat Ratio,Random URon 02-25-2025 MALB:CREAT 14.4 mg/g CRE Normal <30 mg/g CRE [facility] Comment on above: Performed By: #### L 502.0250, L3100.7750, L501.9520, L3410.9992, L500.4100, L506.1001, L3410.9994, L506.0400, L3410.9996, L500.4050 #### [facility] [address] [place], [address] MICROALBUMIN,UR 14.5 mg/L Normal <20 mg/L [facility] Comment on above: Performed By: #### L 502.0250, L3100.7750, L501.9520, L3410.9992, L500.4100, L506.1001, L3410.9994, L506.0400, L3410.9996, L500.4050 #### [facility] [address] [place], [address] Potassium measurement (mass/ volume)on 02-25-2025 Potassium (Unsp spec) [Mass/Vol] 4.0 mmol/L 3.3-5.1 [facility] Comment on above: Hemolysis present, R esults could be affected. Random urine creatinine yash urement (mass/volume)on 02-25-2025 Creatinine Unsp time (U) [Mass/Vol] 101.00 mg/dL 39.00-259. 00 [facility] Saphenous Vein Mapping, Bila ton 02-25-2025 Saphenous Vein Mapping, Bilat [facility] [address] [place] [address] Saphenous Vein Mapping, Bilat 02/25/25 1429 MR#: [id number] Acct: [id number] Name: WALLACE TURK Rep #: [id number] : 1965 59 From: Kirby Caldwell MD Attending Dr: JEWEL LANE Status: REG CLI Ordering Dr: JEWEL LANE Date: 02/25/25 Location: [facility] Sex: M C Admitted: Reason For Study Reason For Study: Pre op RIGHT LEFT GSV prox thigh, 0.57 x 0.56 cm. GSV prox thigh, 0.59 x 0.60 cm. GSV mid thigh, 0.44 x 0.46 cm. GSV mid thigh, 0.57 x 0.62 cm. GSV distal thigh, 0.36 x 0.38 cm. GSV distal thigh, 0.51 x 0.55 cm. GSV knee, 0.41 x 0.41 cm. GSV knee, 0.53 x 0.57 cm. GSV prox calf, 0.25 x 0.27 cm. GSV prox calf, 0.29 x 0.29 cm. Branches noted extending from GSV prox calf. Branches noted extending from GSV prox calf. GSV mid calf, 0.26 x 0.26 cm. GSV mid calf, 0.36 x 0.38 cm. GSV distal calf, 0.18 x 0.18 cm. GSV distal calf, 0.32 x 0.39 cm. SSV prox, 0.17 x 0.18 cm. SSV prox, 0.35 x 0.40 cm. SSV mid, 0.29 x 0.28 cm. SSV mid, 0.35 x 0.39 cm. SSV distal, 0.26 x 0.28 cm. SSV distal, 0.35 x 0.41 cm. GSV and SSV are compressible. GSV and SSV are compressible. Procedure This is a venous duplex using B-mode, color flow and spectral Doppler. Exam performed in department. VL/Saphenous Vein Mapping, Bilat Interpretation Summary The great saphenous veins and small saphenous veins are patent and compressible bilaterally. Branches from the great saphenous veins are noted in the proximal calves bilaterally. Segmental diameters of the great and small saphenous veins are as documented above. ___ Ordering Physician: JEWEL LANE Performed By: Saray Guzman RVT 02/27/252136 Date Kirby Caldwell MD CC: JEWEL LANE; No Primary Care Physician Date Dictated: 02/25/251428 Date Transcribed: 02/27/252136 District Agent: Signed Normal [facility] Screening total cholesterol/ high density lipoprotein (HDL) cholesterol ratioon 02-25-2025 Cholesterol.total/Choles terol in HDL [Mass ratio] 3.27 {ratio} [facility] Serum creatinine measurement (mass/volume)on 02-25-2025 Creatinine [Mass/Vol] 0.84 mg/dL 0.70-1.20 [facility] Serum globulin measurementon 02-25-2025 Globulin (S) [Mass/Vol] 2.7 g/dL 2.2-4.2 [facility] Serum glucose measurement (m ass/volume)on 02-25-2025 Glucose [Mass/Vol] 288 mg/dL High 70-99 [facility] Serum or plasma alanine yeh otransferase (ALT) measurementon 02-25-2025 ALT [Catalytic activity/Vol] 21 U/L <47 [facility] Serum or plasma albumin yash urement (mass/volume)on 02-25-2025 Albumin [Mass/Vol] 4.2 g/dL 3.5-5.0 [facility] Serum or plasma albumin/glob ulin mass ratioon 02-25-2025 Albumin/Globulin [Mass ratio] 1.5 {ratio} 0.9-2.4 [facility] Serum or plasma alkaline shreya sphatase measurementon 02-25-2025 ALP [Catalytic activity/Vol] 100 U/L 40-129 [facility] Serum or plasma calcium yash urement (mass/volume)on 02-25-2025 Calcium [Mass/Vol] 9.2 mg/dL 7.6-11.0 [facility] Serum or plasma cholesterol in HDL measurement (mass/volume)on 02-25-2025 Cholesterol in HDL [Mass/Vol] 45 mg/dL >40 [facility] Comment on above: National Cholesterol Education Program (NCEP) guidelines:<40 mg/dL: Low HDL-cholesterol (major risk factor for CHD)>= 60 mg/dL: High HDL-cholesterol (negative risk factor for CHD)HDL-cholesterol is affected by a number of factors, e.g. smoking, exercise, hormones, sex and age. Serum or plasma cholesterol measurement (mass/volume)on 02-25-2025 Cholesterol [Mass/Vol] 146 mg/dL <201 [facility] Comment on above: Cholesterol level, D esirable <200 mg/dLBorderline high cholesterol 200-239 mg/dLHigh cholesterol >=240 mg/dLRecommendations of the NCEP Adult Treatment Panel for the following risk-cutoff thresholds for the [place] population. Serum or plasma urea nitroge n measurement (mass/volume)on 02-25-2025 Urea nitrogen [Mass/Vol] 21 mg/dL High 4-19 [facility] Sodium levelon 02-25-2025 Sodium [Moles/Vol] 138 mmol/L 133-145 [facility] T4 Free Directon 02-25-2025 T4 FREE DIRECT 1.40 ng/dL Normal 0.76-1.46 [facility] Comment on above: Performed By: #### L 502.0250, L3100.7750, L501.9520, L3410.9992, L500.4100, L506.1001, L3410.9994, L506.0400, L3410.9996, L500.4050 ####[facility] [address] [place], [address] T4 freeon 02-25-2025 Free T4 [Mass/Vol] 1.40 ng/dL 0.76-1.46 [facility] TSH DL <= 0.005 mIU/L Qnon 0 02-25-2025 TSH Qn 1.790 uIU/mL 0.300-4.20 0 [facility] Thyroid Stim Hormone (TSH)on 02-25-2025 TSH 1.790 uIU/mL Normal 0.300-4.20 0 [facility] Comment on above: Performed By: #### L 502.0250, L3100.7750, L501.9520, L3410.9992, L500.4100, L506.1001, L3410.9994, L506.0400, L3410.9996, L500.4050 #### [facility] [address] [place], [place], [id number] Total proteinon 02-25-2025 Protein [Mass/Vol] 6.9 g/dL 5.9-8.4 [facility] Triglycerides measurementon 02-25-2025 Triglyceride [Mass/Vol] 99 mg/dL <199 [facility] Comment on above: The drugs N-Acetylcy steine and Metamizole may falsely depress this assay. Normal range: <150 mg/dLBorderline High: 150-199 mg/dLHigh: 200-499 mg/dLVery High: >500 mg/dL Urine albumin measurement [facility] detection limit of 20 mg/L or less (mass/volume)on 02-25-2025 Albumin DL <= 20 mg/L (U) [Mass/Vol] 14.5 mg/L <20 mg/L [facility] Vitamin D,25 Hydroxyon 02-25 Vitamin D 25-OH 36.4 ng/mL Normal 30-100 [facility] Comment on above: Result Comment: Karin min D Status Deficiency: <20 ng/mL (50nmol/L) Insufficiency: 20-30 ng/mL (50-75 nmol/L) Sufficiency: 30-100 ng/mL (75-250 nmol/L) Toxicity: >100 ng/mL (>250 nmol/L) Performed By: #### L 502.0250, L3100.7750, L501.9520, L3410.9992, L500.4100, L506.1001, L3410.9994, L506.0400, L3410.9996, L500.4050 ####[facility] [address] [place], [place], [address] [id number] 02-24-2025 [id number] Medication List Accurate as of February 24, 2025 1:58 PM. Always use your most recent med list. Alcohol Swabs pads For daily blood sugar monitoring 4 times daily for Continuous Glucose Monitor failure aspirin 81 MG EC tablet Medication Adjustments for Surgery: Take morning of surgery atorvastatin 40 MG tablet Commonly known as: Lipitor Medication Adjustments for Surgery: Take morning of surgery chlorhexidine 0.12 % solution Commonly known as: Peridex Use 15 mL in the mouth or throat Once for 1 dose. Swish for 30 seconds and spit out the night before surgery. Do not swallow. Medication Adjustments for Surgery: Take night before surgery Dexcom G7 Sensor misc Replace with a new sensor every 10 days. glucagon 1 MG injection Inject 1 mL (1 mg) under the skin Once as needed for low blood sugar. insulin glargine 100 UNIT/ML pen Commonly known as: Lantus Inject 10 Units under the skin Nightly. Medication Adjustments for Surgery: Take night before surgery Notes to patient: Take only 8 units the night before surgery insulin lispro 100 UNIT/ML pen injection Commonly known as: HumaLOG Inject 3 Units under the skin 3 times daily (before meals). Medication Adjustments for Surgery: Hold morning of surgery insulin pen needle 32G X 4 MM misc 4 times daily Lancets 33G misc 1 each 4 times daily. For daily blood sugar monitoring 4 times daily for Continuous Glucose Monitor failure metoprolol succinate XL 50 MG 24 hr tablet Commonly known as: Toprol-XL Medication Adjustments for Surgery: Take night before surgery Notes to patient: Hold day of surgery mupirocin 2 % ointment Commonly known as: Bactroban Apply liberal amount per nostril the night before surgery and then again the morning of surgery Medication Adjustments for Surgery: Take night before surgery NON FORMULARY Medication Adjustments for Surgery: Other (Comment) Notes to patient: Supplements- stop taking True Metrix Blood Glucose Test test strip Generic drug: glucose blood For daily blood sugar monitoring 4 times daily for Continuous Glucose Monitor failure True Metrix Meter w/Device kit 1 each 4 times daily. For daily blood sugar monitoring 4 times daily for Continuous Glucose Monitor failure Additional Instructions: No food after midnight. You may have clear liquids up to 2 hours prior to surgery including: -water -apple or cranberry juice (NO orange juice) -black coffee or clear tea (NO creamer or milk) -soda (carbonated beverages) -sports drinks Before arriving to the hospital, have up to 16 ounces of your favorite clear fluid, preferably a sports drink such as Gatorade or Powerade. For patients with diabetes, please opt for a zero sugar fluid. You may take Tylenol for pain. NO Motrin, ibuprofen or Advil for 24 hours prior to surgery or longer if instructed by your surgeon. NO Aleve or Naprosyn for 5 days prior to surgery or longer if instructed by your surgeon. IF YOU TAKE BLOOD THINNERS OR ASPIRIN: Continue taking your Aspirin. Follow any instructions given to you by Dr. Lane. Shower with the [employer] product given to you in Pre-Admission Testing. Follow the instructions. Dry off with clean dry towel, wear clean clothes to bed and clean linen on the bed the night before surgery. Clean clothes to hospital the day of surgery. No lotion, powder, deodorant or body sprays. No hair products. Remove all jewelry and leave it at home. Wear loose comfortable clothing to go home in. You may brush your teeth morning of surgery. Do not wear contacts day of surgery. No marijuana (THC), smoking or alcohol for 24 hours prior to surgery. Please arrange for a responsible adult to drive you home after your surgery and that there is a responsible adult with you for 24 hours post discharge. If you have specific questions, please call your surgeon. You will receive a call the day before your surgery to verify your arrival time and date. You will be asked to arrive at least two hours prior to your scheduled surgery time. We encourage you to write down any questions you may have for the surgeon, anesthesiologist, or other members of the surgical team and bring it with you the day of surgery. Please bring photo ID and insurance information. MAKEUP INSTRUCTOR AND PARKING IN THE MAIN DECK ARE FREE DAY OF SURGERY. PARKING IN THE DECK-- AFTER PARKING TAKE THE ELEVATOR TO LEVEL ONE AND TAKE THE BRIDGE TO THE HOSPITAL. GO TO THE RIGHT AND GO AROUND THE CORNER TO THE SAME DAY SURGERY DESK AND CHECK IN THERE. IF GOING IN THE MAIN ENTRANCE-- TURN LEFT AND GO DOWN THE RAO TO THE H ELEVATORS AND TAKE THEM TO ONE, LEFT OFF THE ELEVATOR AND GO AROUND TO THE SAME DAY DESK AND CHECK IN. 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 He saw [facility]ocrin[facility] today. [facility] Patient is supposed to have CABG done next week and asked if it would be safe and that the Surgeon would like the A1C under 8. They asked if we could get it there by Friday. I let them know this is likely unrealistic and that the surgery is up to the surgeon's digression based on safety. Discussed need for weekly communication with us with Blood Glucose so we can make adjustments to the insulin and titrate as appropriate. Recommendations: Patient will make the following changes to regimen: - START Lantus 10 units every day - START Humalog 3 units three times daily before meals. Do not take if not eating or Blood Glucose under 70 before eating. I notified anesthesia of A1c. Would you like to proceed with surgery Friday? Thank you. Normal [facility] 37on 02-24-2025 37 To do: - START Lantus 10 units once per day - START Humalog or Novolog - 3 units three times daily before meals. IF eating a full meal with carbs and Blood Glucose over 70. - Get labs fasting MARCY - Dexcoms are sent. Please bring it to every visit. Message me in 1 week after these changes so we can see if we need to make adjustments OR sooner if Blood Glucose consistently under 70. - Please talk to them at the front about MyChart - Please schedule Diabetes Education - Please schedule eye Appointment - Please have them print labs and bring with you. Normal [facility] AMB POC GLUCOSE TESTOrdered By: Lex Larios on 02-24-2025 Glucose [Mass/Vol] 230 mg/dL Abnormal 70 - 100 mg/dL [facility] Interpretation and review of laboratory results Abnormal [facility] AMB POC HEMOGLOBIN A1Con HbA1c (Bld) [Mass fraction] 11.7 % Abnormal - 5.7 % [facility] APTTon 02-24-2025 aPTT Coag (Bld) [Time] 25.0 s Normal 20.0-30.5 [facility] Comment on above: Result Comment: GEORGE Hernadez COMMENTS: NOTE: The therapeutic time for Heparin anticoagulation, based on Xa activity inhibition, is an APTT of 46-80 seconds. Performed By: #### L AB103, LAB15 #### Fibre Composite Technician: EDVIN HAYS ([id number]) [facility] ([facility]) [address] [place] [address] BLOOD TYPE AND SCREEN GELon 02-24-2025 ABO GROUPING A Normal [facility] Comment on above: Performed By: #### L [id number] ####Fibre Composite Technician: EDVIN HAYS ([id number])[facility] ([facility])[address] [place] [address] RH TYPE IN BLOOD Positive Normal [facility] Comment on above: Performed By: #### L [id number] ####Fibre Composite Technician: EDVIN HAYS ([id number])[facility] ([facility])[address] [place] [address] CBC (HEMOGRAM)on 02-24-2025 Erythrocyte distribution width (RBC) [Ratio] 13.0 % Normal 11.5-15.0 [facility] Comment on above: Performed By: #### L [id number], LAB15 #### Fibre Composite Technician: EDVIN HAYS ([id number]) [facility] ([facility]) [address] [place] [address] Hematocrit (Bld) [Volume fraction] 46.8 % Normal 40.0-52.0 [facility] Comment on above: Performed By: #### L [id number], LAB15 #### Fibre Composite Technician: EDVIN [id number]) [facility]) [address] [place] [address] Hemoglobin (Bld) [Mass/Vol] 15.8 g/dL Normal 13.0-18.0 [facility] Comment on above: Performed By: #### L [id number], LAB15 #### Fibre Composite Technician: EDVIN [id number]) [facility] ([facility]) [address] [place] [address] MCH (RBC) [Entitic mass] 29.0 pg Normal 26.0-34.0 [facility] Comment on above: Performed By: #### L [id number], LAB15 #### Fibre Composite Technician: EDVIN HAYS ([id number]) [facility] ([facility]) [address] [place] [address] MCHC 33.8 % Normal 30.5-36.0 [facility] Comment on above: Performed By: #### L [id number], LAB15 #### Fibre Composite Technician: EDVIN HAYS ([id number]) [facility] ([facility]) [address] [place] [address] MCV (RBC) [Entitic vol] 86.0 fL Normal 77.0-99.0 [facility] Comment on above: Performed By: #### L [id number], LAB15 #### Fibre Composite Technician: EDVIN HAYS ([id number]) [facility] ([facility]) [address] [place] [address] Platelet mean volume (Bld) [Entitic vol] 12.2 fL Normal 9.0-12.7 [facility] Comment on above: Performed By: #### L [id number], LAB15 #### Fibre Composite Technician: EDVIN HAYS ([id number]) [facility] ([facility]) [address] [place] [address] Platelets (Bld) [#/Vol] 201 10*3/uL Normal 140-440 [facility] Comment on above: Performed By: #### L [id number], LAB15 #### Fibre Composite Technician: EDVIN HAYS ([id number]) [facility] ([facility]) [address] [place] [address] RBC (Bld) [#/Vol] 5.44 10*6/uL Normal 4.40-5.90 [facility] Comment on above: Performed By: #### L [id number], LAB15 #### Fibre Composite Technician: EDVIN HAYS ([id number]) [facility] ([facility]) [address] [place] [address] WBC (Bld) [#/Vol] 4.9 10*3/uL Normal 3.6-10.7 [facility] Comment on above: Performed By: #### L [id number], LAB15 #### Fibre Composite Technician: EDVIN HAYS ([id number]) [facility]) [address] [place] [address] COMPLETE URINALYSIS WITH REF JOSE RAMON TO CULTUREon 02-24-2025 BILIRUBIN, TOTAL PRESENCE IN URINE Negative Normal Negative [facility] Comment on above: Performed By: #### L [id number] ####Fibre Composite Technician: EDVIN HAYS ([id number])[facility])[address] [place] [address] Clarity (U) Clear Normal Clear [facility] Comment on above: Performed By: #### L [id number] ####Fibre Composite Technician: EDVIN HAYS ([id number])[address] Color (U) Light Yellow Normal Lt. Yellow [facility] Comment on above: Performed By: #### L [id number] ####Fibre Composite Technician: EDVIN HAYS ([id number])[facility])[address] [place] [address] GLUCOSE (MG/DL) IN URINE >1,000 Abnormal Nor mal (<70) [facility] Comment on above: Performed By: #### L [id number] ####Fibre Composite Technician: EDVIN HAYS ([id number])[facility])[address] [place] [address] HEMOGLOBIN PRESENCE IN URINE Negative Normal Negative [facility] Comment on above: Performed By: #### L [id number] ####Fibre Composite Technician: EDVIN HAYS ([id number])[address] Ketones Ql (U) 10 mg/dL Abnormal Negative [facility] Comment on above: Performed By: #### L [id number] ####Fibre Composite Technician: EDVIN HAYS ([id number])[facility] ([facility])[address] [place] [address] LEUKOCYTE ESTERASE PRESENCE IN URINE BY TEST STRIP Negative Normal Negative [facility] Comment on above: Performed By: #### L [id number] ####Fibre Composite Technician: EDVIN HAYS ([id number])[facility] ([facility])[address] [place] [address] NITRITE PRESENCE IN URINE Negative Normal Negative [facility] Comment on above: Performed By: #### L [id number] ####Fibre Composite Technician: EDVIN HAYS ([id number])[facility])[address] [place] [address] pH (U) 5.0 [pH] Normal 5.0-8.0 [facility] Comment on above: Performed By: #### L [id number] ####Fibre Composite Technician: EDVIN HAYS ([id number])[facility] ([facility])[address] [place] [address] Protein (U) [Mass/Vol] Negative Normal Negative [facility] Comment on above: Performed By: #### L [id number] ####Fibre Composite Technician: EDVIN HAYS ([id number])[facility])[address] [place] [address] Specific gravity (U) [Rel density] 1.022 Normal 1.005-1.03 0 [facility] Comment on above: Result Comment: GEORGE Hernadez COMMENTS: A specimen with <=10 WBC is not consistent with inflammation. This specimen will not reflex to a urine culture. Performed By: #### L [id number] ####Fibre Composite Technician: EDVIN HAYS ([id number])[facility] ([facility])[address] [place] [address] UROBILINOGEN (MG/DL) IN URINE Normal Normal Normal (0-1) [facility] Comment on above: Performed By: #### L [id number] ####Fibre Composite Technician: EDVIN HAYS ([id number])[facility])[address] [place] [address] COMPREHENSIVE METABOLIC PANE Luiz 02-24-2025 Albumin [Mass/Vol] 4.1 g/dL Normal 3.5-5.0 [facility] Comment on above: Performed By: #### L [id number] #### Fibre Composite Technician: EDVIN HAYS ([id number]) [facility] ([facility]) [address] [place] [address] ALP [Catalytic activity/Vol] 95 U/L Normal 40-150 [facility] Comment on above: Performed By: #### L [id number] #### Fibre Composite Technician: EDVIN HAYS ([id number]) [facility] ([facility]) [address] [place] [address] ALT [Catalytic activity/Vol] 23 U/L Normal <40 [facility] Comment on above: Performed By: #### L [id number] #### Fibre Composite Technician: EDVIN HAYS ([id number]) [facility] ([facility]) [address] [place] [address] Anion gap [Moles/Vol] 12 mmol/L Normal 3-13 [facility] Comment on above: Performed By: #### L [id number] #### Fibre Composite Technician: EDVIN HAYS ([id number]) [facility] ([facility]) [address] [place] [address] AST [Catalytic activity/Vol] 20 U/L Normal <34 [facility] Comment on above: Performed By: #### L [id number] #### Fibre Composite Technician: EDVIN HAYS ([id number]) [facility]) [address] [place] [address] Bilirubin [Mass/Vol] 1.0 mg/dL Normal <1.2 [facility] Comment on above: Performed By: #### L [id number] #### Fibre Composite Technician: EDVIN HAYS ([id number]) [facility]) [address] [place] [address] Calcium [Mass/Vol] 9.2 mg/dL Normal 8.4-10.2 [facility] Comment on above: Performed By: #### L [id number] #### Fibre Composite Technician: EDVIN [id number]) [facility] ([facility]) [address] [place] [address] [place] Chloride [Moles/Vol] 102 mmol/L Normal 98-107 [facility] Comment on above: Performed By: #### L [id number] #### Fibre Composite Technician: EDVIN HAYS ([id number]) [facility] ([facility]) [address] [place] [address] [place] CO2 [Moles/Vol] 24 mmol/L Normal 22-29 [facility] Comment on above: Performed By: #### L [id number] #### Fibre Composite Technician: EDVIN HAYS ([id number]) [facility]) [address] [place] [address] Creatinine [Mass/Vol] 0.84 mg/dL Normal 0.72-1.25 [facility] Comment on above: Performed By: #### L AB17 #### Fibre Composite Technician: EDVIN HAYS ([id number]) [facility] ([facility]) [address] [place] [address] GLOMERULAR FILTRATION RATE ML/MIN/1.73 SQ M.PREDICTED >90.0 Normal >60.0 [facility] Comment on above: Result Comment: Calc ulation based on the Chronic Kidney Disease Epidemiology Collaboration (CKD-EPI) equation refit without adjustment for race Performed By: #### L [id number] #### Fibre Composite Technician: EDVIN HAYS ([id number]) [facility] ([facility]) [address] [place] [address] [place] Glucose [Mass/Vol] 204 mg/dL High 74-100 [facility] Comment on above: Performed By: #### L [id number] #### Fibre Composite Technician: EDVIN HAYS ([id number]) [facility] ([facility]) [address] [place] [address] [place] Potassium [Moles/Vol] 4.1 mmol/L Normal 3.5-5.1 [facility] Comment on above: Result Comment: [facility] potassium values may be up to 0.5 mmol/L lower than serum values. Performed By: #### L [id number] #### Fibre Composite Technician: EDVIN HAYS ([id number]) [facility] ([facility]) [address] [place] [address] Protein [Mass/Vol] 7.5 g/dL Normal 6.4-8.3 [facility] Comment on above: Performed By: #### L [id number] #### Fibre Composite Technician: EDVIN HAYS ([id number]) [facility]) [address] [place] [address] Sodium [Moles/Vol] 138 mmol/L Normal 136-145 [facility] Comment on above: Performed By: #### L [id number] #### Fibre Composite Technician: EDVIN HAYS ([id number]) [facility]) [address] [place] [address] Urea nitrogen [Mass/Vol] 19 mg/dL Normal 9-23 [facility] Comment on above: Performed By: #### L [id number] #### Fibre Composite Technician: EDVIN HAYS ([id number]) [facility] ([facility]) [address] [place] [address] ECG 12-LEADon 02-24-2025 ECG 12-LEAD IMPRESSION: Sinus rhythm Minimal ST elevation, inferior leads No previous ECG available for comparison Electronically Signed On 02-24-2025 16:51:40 EDT by Wallace Dias [facility] HbA1c (Bld) [Mass fraction]o n 02-24-2025 Interpretation and review of laboratory results Abnormal [facility] MRSA BY PCRon 02-24-2025 MRSA BY PCR STAPHYLOCOCCUS AUREU S Reference Not Detected Not Detected MECA GENE Reference Not Detected Not Detected ORDER COMMENTS: No Staphylococcus aureus detected. Negative nasal MRSA PCR has a high negative predictive value for MRSA pneumonia. Consider stopping Vancomycin if no other clinical indication. Contact Antimicrobial Stewardship for further recommendations. Staphylococcus aureus nasal screen by real-time PCR. This test was modified and its performance characteristics determined by [facility]. The U. S. Food and Drug Administration has not approved or cleared this test; however, FDA clearance or approval is not currently required for clinical use. The results are not intended to be used as the sole means for clinical diagnosis or patient management decisions. Normal [facility] Comment on above: Performed By: #### L [id number] #### Fibre Composite Technician: EDVIN HAYS ([id number]) [facility]) [address] [place] [address] Office Visiton 02-24-2025 Follow-up visit [id number] Caio Turk 1965 M Date Provider Department [place] 02/24/2025 [id number], RICHARD L [facility] None Family History Problem Relation Age of Onset Diabetes Mother Coronary artery disease Mother Heart attack Mother Stroke Mother Diabetes Father Family Status - Relation Status Age at Mother Father Level of Service:82015 HI OFFICE/OUTPATIENT NEW HIGH MDM 60 MINUTES Reason for Visit and Comments: New Patient [542] Diabetes Mellitus [183] Normal [facility] PROTHROMBIN TIMEon INR Coag (PPP) [Relative time] 1.0 {INR} Normal 0.9-1.1 [facility] Comment on above: Result Comment: Danny mmended Anticoagulant Therapy: SEE BELOW ----- INR of 2.0 - 3.0 : - Prophylaxis of Venous Thrombosis (high-risk surgery) - Treatment of Venous Thrombosis - Treatment of Pulmonary Embolism (Includes tissue heart valves, Acute Myocardial Infarction to prevent systemic embolism, Valvular Heart Disease, and Atrial Fibrillation) ----- INR of 2.5 - 3.5 : - Mechanical Prosthetic Valves (high risk) - If oral anticoagulant therapy is used to prevent Myocardial Infarction Performed By: #### L AB103, LAB15 #### Fibre Composite Technician: EDVIN HAYS ([id number]) [facility]) [address] [place] [address] PT Coag (PPP) [Time] 10.8 s Normal 9.0-12.0 [facility] Comment on above: Performed By: #### L AB103, LAB15 #### Fibre Composite Technician: EDVIN HAYS ([id number]) [facility]) [address] [place] [address] Progress Noteon 02-24-2025 Progress Note [facility] Wallace Burke : 1965 Primary Care Physician: No primary care provider on file. The patient and/or family/surrogate voluntarily agreed to participate in ACP services. Patient?s cognitive capacity: A&Ox3 Code Status: [x] [FULL CODE - Continue all advanced life support: CPR,intubation,invasive procedures] [_] [DNR-CCA - DO NOT do CPR, intubation] [_] [DNR-MORTGAGE FIELD INSPECTOR - Comfort care only] [_] DNR form [was/was not] signed Summary of discussion: The patient health care POA/ surrogate is the following: Sharda Turk. [Condition that instigated the ACP on this DOS, relevant PMH, functional status, goals of care, and whom this was discussed with including names and relationship to the patient, and any relevant advance care documentation discussion] I answered all the patient/family questions that I could within the range and scope of the current medical situation. We discussed the medical conditions, risks, benefits, outcomes, and goals of care at this time for the patient's medical issues at hand in the face of the patient's chronic issues and current presentation. Total time spent: 3 minutes were spent discussing the patient's resuscitation status, advance care planning, and end of life care, with patient and/or family/surrogate. Ranjana Christianson APRN - MAIL PROCESSING EQUIPMENT MECHANIC Acute care [facility] 02/24/2025, 1:59 PM Normal [facility] Progress Note [facility] [address] [place] [address] Dept: [phone] Dept Loc: [phone] Visit type: New patient Reason for Visit: New Patient and Diabetes Mellitus Assessment and Plan 1. Type 2 diabetes mellitus with hyperglycemia, without long-term current use of insulin (HCC) - [facility] Endocrinology - AMB POC HEMOGLOBIN A1C - AMB POC GLUCOSE TEST - [facility] Ophthalmology [facility] - Zinc Transporter 8 Antibody - Glutamic acid decarboxylase (Sendout) - C-Peptide - IA-2 Antibody - Glucose, random - Comprehensive metabolic panel - Microalbumin / creatinine urine ratio - Lipid panel - T4, free - TSH - Vitamin D Deficiency Screening (Vit D 25) - insulin lispro (HumaLOG) 100 UNIT/ML pen injection; Inject 3 Units under the skin 3 times daily (before meals)., Starting Kika 02/24/2025, Until Fri02/24/2026, Normal - insulin glargine (Lantus) 100 UNIT/ML pen; Inject 10 Units under the skin Nightly., Starting Fri02/24/2025, Until Fri02/24/2026, Normal - insulin pen needle 32G X 4 MM misc; 4 times daily, Normal - Blood Glucose Monitoring Suppl (True Metrix Meter) w/Device kit; 1 each 4 times daily. For daily blood sugar monitoring 4 times daily for Continuous Glucose Monitor failure, Starting Fri02/24/2025, Until Fri02/24/2026, Normal - glucose blood (True Metrix Blood Glucose Test) test strip; For daily blood sugar monitoring 4 times daily for Continuous Glucose Monitor failure, Normal - Lancets 33G misc; 1 each 4 times daily. For daily blood sugar monitoring 4 times daily for Continuous Glucose Monitor failure, Starting Fri02/24/2025, Until Fri02/24/2026, Normal - Alcohol Swabs pads; For daily blood sugar monitoring 4 times daily for Continuous Glucose Monitor failure, Normal - Continuous Glucose Sensor (Dexcom G7 Sensor) misc; Replace with a new sensor every 10 days., Print - glucagon 1 MG injection; Inject 1 mL (1 mg) under the skin Once as needed for low blood sugar., Starting Fri02/24/2025, Until Fri02/24/2026 at 2359, Normal 2. Type 2 diabetes mellitus with diabetic polyneuropathy, without long-term current use of insulin ([facility]) 3. Hypertension associated with type 2 diabetes mellitus (HCC) 4. Type 2 diabetes mellitus with hyperlipidemia (HCC) ([facility]) No results found for: EGFR, TSH, CHOL, TRIGLYCERIDE, HDL, LDLCALC, MICROALBCREA, ALBUMINCREAT Lab Results Component Value Date HGBA1C 11.7 (A) 02/24/2025 A1C is at goal: no Goal A1C is under 7.0 Patient does not have Blood Glucose monitoring supplies so will send for him now. Will need to make decisions based on in office Blood Glucose and A1C - Discussed danger of high A1C/Blood Glucose for extended periods of time. - Discussed healthy balanced diet and exercise - Discussed blood glucose goals and A1C targets - Discussed importance of taking meds as prescribed, proper administration, and timing Patient is supposed to have CABG done next week and asked if it would be safe and that the Surgeon would like the A1C under 8. They asked if we could get it there by Friday. I let them know this is likely unrealistic and that the surgery is up to the surgeon's digression based on safety. Discussed need for weekly communication with us with Blood Glucose so we can make adjustments to the insulin and titrate as appropriate. Recommendations: Patient will make the following changes to regimen: - START Lantus 10 units every day - START Humalog 3 units three times daily before meals. Do not take if not eating or Blood Glucose under 70 before eating. Discussed proper administration, rotating injection sites, and timing in detail today Patient would like to avoid Metformin SGLT2 not a good option re: uncontrolled A1C Could possibly use GLP-1/DPP-4 in the future but will await labs Since there are no Blood Glucose logs, we will start insulin with a weight-based dosing. Possibility of Type 1 Diabetes so will order antibodies and labs based on presentation. We discussed other options besides insulin in the future if labs come back negative for Type 1 Diabetes but I think insulin is the best option to start today whether he has Type 1 Diabetes or Type 2 Diabetes. MICHELLE and Islet Cell were checked in 2023 but I want to recheck them to confirm today due to uncontrolled Diabetes despite very healthy diet/exercise and lean body. --> Labs to be done fasting prior to next visit; discussed holding supplements 5 days prior. Add Zinc, IA-2, and fasted C-Peptide with glucose. --> Continue BG monitoring: via Dexcom G7 ([employer]) (or FSBS 3-4 times per day) and send in BGL in 2 weeks for review. Patient downloaded Dexcom NOELLE today and MA placed a sample Dexcom G7 and I recommended he send us logs once it is finished Does not have a meter so sent True Metrix as backup for Continuous Glucose Monitor failure --> Hypos: Gluc (more content not included)... Normal [facility] XR CHEST 2 VIEWSon 5 XR CHEST 2 VIEWS Patient Name: WALLACE TURK : 1965 Exam Date/Time: 02/24/2025 14:41 Procedure: XR CHEST 2 VIEWS Ordering Provider: CHRISTIANSON CRYSTAL Reason For Exam: pre-op testing CHEST X-RAY PA/LATERAL CLINICAL INDICATION: Preoperative examination Frontal and lateral plain films of the chest were obtained. COMPARISON: None FINDINGS: The cardiac silhouette is within normal limits. No focal consolidation is seen within the lungs. No pleural effusion or pneumothorax is identified. The bony structures of the chest are unremarkable as visualized for the patient's age. IMPRESSION: No acute cardiopulmonary disease. Report Dictated on Electronically Signed By: Alfonso Lundberg MD Electronically Signed Date/Time: 02/24/2025 6:32 PM EDT [facility] XR Chest 2 Viewson No acute cardiopulmonary disease. Report Dictated on Electronically Signed By: Alfonso Lundberg MD Electronically Signed Date/Time: 02/24/2025 6:32 PM EDT [facility] Patient Name: WALLACE TURK : 1965 Exam Date/Time: 02/24/2025 14:41 Procedure: XR CHEST 2 VIEWS Ordering Provider: Digital Reasoning Reason For Exam: pre-op testing CHEST X-RAY PA/LATERAL CLINICAL INDICATION: Preoperative examination Frontal and lateral plain films of the chest were obtained. COMPARISON: None FINDINGS: The cardiac silhouette is within normal limits. No focal consolidation is seen within the lungs. No pleural effusion or pneumothorax is identified. The bony structures of the chest are unremarkable as visualized for the patient's age. [facility] Alfonso Lundberg MD - 02/24/2025 Patient Name: WALLACE TURK : 1965 Exam Date/Time: 02/24/2025 14:41 Procedure: XR CHEST 2 VIEWS Ordering Provider: Digital Reasoning Reason For Exam: pre-op testing CHEST X-RAY PA/LATERAL CLINICAL INDICATION: Preoperative examination Frontal and lateral plain films of the chest were obtained. COMPARISON: None FINDINGS: The cardiac silhouette is within normal limits. No focal consolidation is seen within the lungs. No pleural effusion or pneumothorax is identified. The bony structures of the chest are unremarkable as visualized for the patient's age. IMPRESSION: No acute cardiopulmonary disease. Report Dictated on Electronically Signed By: Alfonso Lundberg MD Electronically Signed Date/Time: 02/24/2025 6:32 PM EDT [facility] Radiology Study observation (narrative) [employer] XR Chest 2 ViewsOrdered By: Alfonso Lundberg on 02-24-2025 [facility] 36on 02-22-2025 36 We have been unable to reach your patient to schedule their testing. Test Name: Vascular US carotid artery duplex bilateral and Vascular US lower extremity vein mapping for bypass bilateral 1st Attempt: 02.17.25 2nd Attempt: 02.22.25 Normal [facility] [employer] [facility] No Panel InformationOrdered By: Javi Darwin on 02-22-2025 Left [facility] BP 144 [facility]: Left Prox Radial A BP 197 mmHg [facility] Work Phone: Left Prox Ulnar A BP 177 mmHg Summ [employer] Work Phone: Left WBI 1.28 [facility] [employer] Work Phone: [phone] Right arm BP 154 mmHg [facility] [employer] Work Phone: [phone] Right Prox Radial A BP 180 mmHg Velazquez mma [employer] Work Phone: Right Prox Ulnar A BP 184 mmHg Sum ma [employer] Work Phone: [phone] Right WBI 1.19 [facility] [employer] Phone: [phone] No Panel Informationon 02-22 Barrios Rodney performe d, see waveforms below. Right side findings: WBI is 1.19. This is normal. Left side findings: WBI is 1.28. This is normal. Study Details A spectral Doppler analysis ultrasound was performed. Pulsed volume recording (PVR) and photo plethysmography was performed. The exam was performed with the patient in the supine position. Overall the study quality was good. Right Upper Arterial Normal wrist brachial index (WBI). Left Upper Arterial Normal wrist brachial index (WBI). CV CPACS 36on 02-21-2025 36 Surg proc orders althea geraldine Meds e-scribed Alem Muse, TROY - MAIL [employer]ING [employer]IP[employer] MECH[employer]IC 02/21/25 [facility] Card[facility] Diagnostic [facility] Imaging Services [address] [place] [address] Cardiac Cath Diagnostic MR#: [id number] Acct: [id number] Name: WALLACE TURK Rep #: [id number] : 1965 59 From: Az Enrique MD PCP: Care Physician,No Primary Status:[facility] Patient Name: WALLACE TURK Study Date: 02/07/2025 Performing: Az Enrique MD Ht: 70 inches 177.8 cm : 1965 Wt: 202.01 lbs 91.63 kg Age: 59 Gender: male BSA: 2.1 PROCEDURE(S) PERFORMED DC01-(07213)LHC/COR/LV CLINICAL PROFILE AND INDICATIONS Indications: Suspected CAD Heart Failure: None Stress/Imaging Stress/Image Study Performed: No CAD Presentations: Unstable angina. CONCLUSIONS Severe triple-vessel disease noted with left ventricular systolic dysfunction mild and a diabetic. RECOMMENDATIONS Surgery consult for coronary revascularization DESCRIPTION OF PROCEDURE The patient arrived to the procedure lab. The risks and benefits of the procedure as well as a full description of our services here and current unavailability of surgical backup were fully explained to the patient and/or their significant other prior to the catheterization. The Timeout was completed, verifying the correct patient and procedure. The patient's procedural site was prepped and draped in the usual fashion. Local anesthetic was given subcutaneously to right radial region with Lidocaine 2%. Using a modified Seldinger technique, arterial access was obtained via the right radial artery, a 6Fr sheath was inserted. Right Coronary Artery selective angiography was then performed in multiple views using a 5 Fr. 4.0 [place] catheter. Left Coronary Artery selective angiography was performed in multiple views using a 5 Fr. 4.0 [place] catheter. Left Ventriculography was performed in JUÁREZ projection using a 5 Fr. Pigtail catheter. LV to AO pullback pressures were then recorded.The arterial sheath was pulled and a TR Band was applied for hemostasis w/ 18ml air CORONARY ANGIOGRAPHY DOMINANCE: Right Dominant LEFT HEART ASSESSMENT Left Ventricular Ejection Fraction: by LV Gram 45 % Anterior Hypokinesis - Moderate Depressed Left Ventricular systolic function LEFT MAIN: Mild calcification, Mild luminal irregularities less than 30% LEFT ANTERIOR DESCENDING ARTERY: This vessel had 3 previously placed stents along proximal 1 with moderate in-stent stenosis followed by 90% stenosis and mid short stent with mild in-stent stenosis followed by another 90% stenotic lesion. The vessel then continues with moderate luminal irregularities and gives off left to right distal collaterals. CIRCUMFLEX ARTERY: Nondominant vessel with a first obtuse marginal branch noted to have mild to moderate disease of first obtuse marginal branch with high-grade stenosis in the AV groove branch with an 80% stenosis prior to the distal bifurcation. RIGHT CORONARY ARTERY: MID RCA: Subtotally occluded mid right coronary artery noted with an acute marginal vessel and then distal [id number] collaterals noted. COLLATERAL FLOW: Collateral flow from Left to Right COMPLICATIONS No Complications PROCEDURE MEDICATIONS Versed 1 mg IV Fentanyl 50 mcg IV Versed 1 mg IV Oxygen: 2 L/min via nasal cannula Baby Aspirin (81mg) 1 Tabs PO @ 02/07/2025 09:45:49 Heparin given IA 02/07/2025 12:07:37 Verapamil 2.5mg, Ntg 100mcgs, 3000 units of Heparin given IA 02/07/2025 12:07:37 SUMMARY OF HEMODYNAMIC DATA Time AIR REST ECG 09:57:18 AO 128/78 (96) SA 12:22:36 LV 144/8, 19 12:35:47 LV 145/9, 13 12:35:56 LV 133/9, 11 12:36:54 LV 135/8, 11 12:36:57 LVp 151/9, 14 12:37:01 AOp 150/79 (107) 12:37:09 AIR REST 12:49:29 Signed By Az Enrique MD On 02/07/2025 12:52:31 Az Enrique MD 02/21/25 0947 Date Az Enrique MD Cosigner Signature: Date (if indicated) CC: Dr. Az Enrique MD; No Primary Care Physician Date Dictated: 02/07/25 1149 Date Transcribed: 02/07/25 1252 District Agent: [place] Signed Normal [facility] Chest without Contraston Chest without Contrast [facility] Imaging Services [address] [place], [place] [address] Chest without Contrast MR#: [id number] Acct: [id number] Name: WALLACE TURK Rep #: [id number] : 1965 M 59 From: Juan Jose gonzalez MD PCP: Care Physician,No Primary Status: REG CLI Study: Chest without Contrast Date of Exam: 02/21/25 Exam# [id number] Ordering Dr: JEWEL LANE MD PROCEDURE: CHEST WITHOUT CONTRAST 02/21/2025 REASON FOR EXAM: CHEST PAIN History of abdominal aortic aneurysm. TECHNIQUE: Chest CT without contrast. Coronal and Sagittal reconstruction series were provided. One or more dose reduction techniques were used (e.g., Automated exposure control, adjustment of the mA and/or kV according to patient size, use of iterative reconstruction technique RADIATION DOSE SUMMARY: CTDlvol: 15.97 mGy DLP: 590.76 mGycm COMPARISON: Prior study dated July 08, 2020. FINDINGS: Hardware: None Lymph nodes: No significant lymph nodes are seen. Heart and Vasculature: The heart is nonenlarged. Atherosclerotic calcifications of the thoracic aorta. Thoracic aorta and pulmonary arteries have normal contours; noncontrast technique limits evaluation. Coronary Artery Calcifications: Present Lungs and Airways: No evidence of consolidation. No suspicious nodule seen. Pleura: No pleural effusion. Upper Abdomen: Unremarkable Bones: Degenerative changes of the thoracic spine. CT/Chest without Contrast IMPRESSION: Coronary artery calcification (CAC) is is present No acute abnormality is seen. Reading Location: [place] [address] CC: JEWEL LANE MD; No Primary Care Physician District Agent: Signed Normal [facility] Echocardiogram study reportO rdered By: Az Enrique on 02-11-2025 Study report [facility] Cardiovascular Services [address] [place] [address] Echo Complete 02/10/25 1604 MR#: [id number] Acct: [id number] Name: WALLACE TURK Rep #:[id number] : 1965 59 From: Az Wilkins Attending Dr: Dr. Az Enrique MD S tatus: REG CLI Ordering Dr: Az Enrique MD Date: Location: [facility] Sex: M C Admitted: Reason For Study Reason For Study: CHEST PAIN Procedure This was a 2D Doppler, Color Flow transthoracic echocardiogram. Exam performed in department. Left Ventricle Normal LV size. The left ventricular ejection fraction is 55 %. Stage 1 diastolic dysfunction. No regional wall motion abnormalities noted. Right Ventricle Normal RV size. Normal systolic function. Atria Normal left atrium. Normal right atrium. Mitral Valve Normal mitral valve. Tricuspid Valve Normal tricuspid valve. Aortic Valve Trisinus/trileaflet aortic valve. Pulmonic Valve Normal pulmonic valve. Great Vessels Normal aortic root. The pulmonary artery is normal size. Inferior vena cava collapse with respiration. Pericardium/Pleural No pericardial effusion. MMode/2D Measurements & Calculations LVIDd: 4.9 cm IVSd: 1.0 cm Ao root diam: 3.7 cm LVIDs: 3.6 cm LVPWd: 0.95 cm RVDd: 2.5 cm FS: 27.2 % LAV(MOD-bp): 37.9 ml LVAd ap4: 30.2 cm2 LVAd ap2: 25.9 cm2 LAV(MOD-bp) Indexed: 18.1 ml/m2 LVLd ap4: 8.7 cm LVLd ap2: 8.5 cm LAV(MOD-sp2): 36.2 ml EDV(MOD-sp4): 84.9 ml EDV(MOD-sp2): 69.0 ml LAV(MOD-sp4): 36.4 ml EDV(sp4-el): 89.5 ml EDV(sp2-el): 67.0 ml LVAs ap4: 19.4 cm2 LVAs ap2: 16.9 cm2 LVLs ap4: 7.3 cm LVLs ap2: 7.1 cm ESV(MOD-sp4): 43.4 ml ESV(MOD-sp2): 34.8 ml ESV(sp4-el): 43.8 ml ESV(sp2-el): 34.1 ml EF(MOD-sp4): 48.9 % EF(MOD-sp2): 49.6 % EF(sp4-el): 51.1 % SV(MOD-sp4): 41.5 ml SV(MOD-sp2): 34.2 ml SV(sp4-el): 45.7 ml SI(MOD-sp4): 19.8 ml/m2 SI(MOD-sp2): 16.3 ml/m2 LA A4 area: 14.6 cm2 LA dimension(2D): 3.3 cm RA A4 area: 11.5 cm2 TAPSE: 2.5 cm Time Measurements MV dec time: 0.16 sec Doppler Measurements & Calculations MV E max keith: 53.5 cm/sec Lat Peak E' Keith: 13.6 cm/sec Med Peak E' Keith: 7.0 cm/sec MV A max keith: 76.4 cm/sec E/E' lat: 3.9 E/E' med: 7.7 MV E/A: 0.70 Ao V2 max: 137.2 cm/sec LV V1 max: 99.2 cm/sec PA V2 max: 117.7 cm/sec Ao max P.5 mmHg LV V1 max P.9 mmHg PA V2 mean: 85.5 cm/sec Ao V2 mean: 93.1 cm/sec LV V1 mean P.5 mmHg Ao mean P.8 mmHg LV V1 mean: 76.0 cm/sec Ao V2 VTI: 20.2 cm LV V1 VTI: 17.1 cm AV (velocity ratio): 0.85 ECHO/Echo Complete Interpretation Summary Normal LV size. The left ventricular ejection fraction is 55 %. Stage 1 diastolic dysfunction. Structurally normal valves. ___ Ordering Physician: Az Enrique Referring Physician: NO PCP Performed By: Bernadette Leal, RDCS, RVT 02/11/25743 Date _ Az Enrique MD CC: Dr. Az Enrique MD; No Primary Care Physician ~ Date Dictated: 02/10/251603 Date Transcribed: 02/11/25743 District Agent: Signed [facility] Work Phone: Echo Completeon 02-10-2025 Echo Complete [facility] Cardiovascular Services [address] [place] [address] Echo Complete 02/10/251603 MR#: [id number] Acct: [id number] Name: WALLACE TURK Rep #: [id number] : 1965 59 From: Az Enrique MD Attending Dr: Dr. Az Enrique MD Status: TOMEKA SOARES Ordering Dr: Az Enrique MD Date: 02/10/25 Location: [facility] Sex: M C Admitted: Reason For Study Reason For Study: CHEST PAIN Procedure This was a 2D Doppler, Color Flow transthoracic echocardiogram. Exam performed in department. Left Ventricle Normal LV size. The left ventricular ejection fraction is 55 %. Stage 1 diastolic dysfunction. No regional wall motion abnormalities noted. Right Ventricle Normal RV size. Normal systolic function. Atria Normal left atrium. Normal right atrium. Mitral Valve Normal mitral valve. Tricuspid Valve Normal tricuspid valve. Aortic Valve Trisinus/trileaflet aortic valve. Pulmonic Valve Normal pulmonic valve. Great Vessels Normal aortic root. The pulmonary artery is normal size. Inferior vena cava collapse with respiration. Pericardium/Pleural No pericardial effusion. MMode/2D Measurements Calculations LVIDd: 4.9 cm IVSd: 1.0 cm Ao root diam: 3.7 cm LVIDs: 3.6 cm LVPWd: 0.95 cm RVDd: 2.5 cm FS: 27.2 % LAV(MOD-bp): 37.9 ml LVAd ap4: 30.2 cm2 LVAd ap2: 25.9 cm2 LAV(MOD-bp) Indexed: 18.1 ml/m2 LVLd ap4: 8.7 cm LVLd ap2: 8.5 cm LAV(MOD-sp2): 36.2 ml EDV(MOD-sp4): 84.9 ml EDV(MOD-sp2): 69.0 ml LAV(MOD-sp4): 36.4 ml EDV(sp4-el): 89.5 ml EDV(sp2-el): 67.0 ml LVAs ap4: 19.4 cm2 LVAs ap2: 16.9 cm2 LVLs ap4: 7.3 cm LVLs ap2: 7.1 cm ESV(MOD-sp4): 43.4 ml ESV(MOD-sp2): 34.8 ml ESV(sp4-el): 43.8 ml ESV(sp2-el): 34.1 ml EF(MOD-sp4): 48.9 % EF(MOD-sp2): 49.6 % EF(sp4-el): 51.1 % SV(MOD-sp4): 41.5 ml SV(MOD-sp2): 34.2 ml SV(sp4-el): 45.7 ml SI(MOD-sp4): 19.8 ml/m2 SI(MOD-sp2): 16.3 ml/m2 LA A4 area: 14.6 cm2 LA dimension(2D): 3.3 cm RA A4 area: 11.5 cm2 TAPSE: 2.5 cm Time Measurements MV dec time: 0.16 sec Doppler Measurements Calculations MV E max keith: 53.5 cm/sec Lat Peak E' Keith: 13.6 cm/sec Med Peak E' Keith: 7.0 cm/sec MV A max keith: 76.4 cm/sec E/E' lat: 3.9 E/E' med: 7.7 MV E/A: 0.70 Ao V2 max: 137.2 cm/sec LV V1 max: 99.2 cm/sec PA V2 max: 117.7 cm/sec Ao max P.5 mmHg LV V1 max P.9 mmHg PA V2 mean: 85.5 cm/sec Ao V2 mean: 93.1 cm/sec LV V1 mean P.5 mmHg Ao mean P.8 mmHg LV V1 mean: 76.0 cm/sec Ao V2 VTI: 20.2 cm LV V1 VTI: 17.1 cm AV (velocity ratio): 0.85 ECHO/Echo Complete Interpretation Summary Normal LV size. The left ventricular ejection fraction is 55 %. Stage 1 diastolic dysfunction. Structurally normal valves. ___ Ordering Physician: Az Enrique Referring Physician: ALEXANDRE PCP Performed By: Bernadette Leal, WILL, RVT 02/11/25743 Date Az Enrique MD CC: Dr. Az Enrique MD; No Primary Care Physician Date Dictated: 02/10/25 1604 Date Transcribed: 02/11/25743 District Agent: Signed [facility] Office Visiton 02-09-2025 Follow-up visit [id number] Caio Turk [place] 1965 M Date Provider Department Center 02/09/2025 JEWEL [facility] CT None Family History Problem Relation Age of Onset Diabetes Mother Coronary artery disease Mother Heart attack Mother Stroke Mother Diabetes Father Family Status - Relation Status Age at Mother Father Level of Service:20909 HI OFFICE/OP CONSLTJ NEW/EST PT HIGH MDM 55 MINUTES Reason for Visit and Comments: New Patient [542] Normal [facility] Progress Noteon 02-09-2025 Progress Note Pre op teaching done with patient. Instructed to hold NSAIDS 7 days prior to surgery. All other medications per PAT protocol. Pharmacy confirmed. All questions answered. Normal [facility] Progress Note [facility]ARD[facility]ACIC SURGERY [address] [place] [address] [address] [facility] [address] Dept: [phone] Dept Loc: [phone] Visit type: New Reason for Visit: Evaluation of multivessel coronary artery disease Assessment: 1. Coronary artery disease of [place] artery of [place] heart with stable angina pectoris (HCC) Recommendations: This is a 59-year-old male with history of hypertension, diabetes, hyperlipidemia with chest pain with exertion for the past 6 months. He saw cardiology and had an abnormal stress test, left heart cath showed significant multivessel coronary disease including the RCA, LAD, and circumflex territories. Stress echo shows preserved ejection fraction, no significant valvular abnormalities. Agree for the need for coronary artery bypass grafting this gentleman. On my review of the heart cath, the patient has adequate targets for bypass. Plan will be for use of left internal mammary artery, potential multi arterial grafting, and additional saphenous vein for conduit. STS risk for CABG in this patient with the information we have is low at 0.3% risk of 30-day mortality. Patient has TTE scheduled tomorrow, will follow the results. The following studies will be ordered prior to surgery: - Radial artery studies - Bilateral carotid artery ultrasound - CT of the chest without IV contrast - Vein mapping - Endocrinology referral for presumed uncontrolled diabetes. Last hemoglobin A1c was over 12%. This will need to be better controlled prior to scheduling surgery. Discussed risks and benefits of the procedure with the patient, and he wishes to proceed forward. STS Risk Calculator Procedure Type: Isolated CABG Perioperative Outcome Estimate % Operative Mortality 0.301% Morbidity & Mortality 2.36% Stroke 0.454% Renal Failure 0.413% Reoperation 1.38% Prolonged Ventilation 1.09% Deep Sternal Wound Infection 0.135% Long Hospital Stay (>14 days) 0.929% Short Hospital Stay (<6 days)* 75.7% History of Present Illness Wallace Turk is a 59 y.o. male referred by Dr. Enrique for CABG. Per note, pt has history of CAD s/p PCI of the LAD in May 2012, HTN, DM, hyperlipidemia. Pt had not had cardiac follow up for years and discontinued all medications other than aspirin. He saw Cardiology on 01/19/25 with complaints of chest discomfort with exertion. Pt had stress test in 2022 that was abnormal with moderately severe inferior wall defect suggesting an infarct. An echocardiogram demonstrated preserved EF. Pt underwent heart catheterization on 02/07/25 which demonstrated severe triple vessel disease with left ventricular systolic dysfunction. A1C drawn on 09/10/23 was 12%. Echocardiogram is scheduled on 02/10/25 at [place]. Pt is here now for an evaluation. Past Medical History Medical History[1] Past Surgical History Surgical History[2] Family History Family History[3] Social History Social History[4] Allergies Allergies[5] Medications Current Medications[6] Review of Systems Review of Systems Respiratory: Positive for chest tightness (intermittent on exertion). Neurological: Positive for light-headedness (intermittent on exertion). All other systems reviewed and are negative. Physical Exam Vitals: BP 132/83 (BP Location: Left arm, Patient Position: Sitting, BP Cuff Size: Large adult) Pulse 81 Ht 5' 10 (1.778 m) Wt 194 lb (88 kg) BMI 27.84 kg/m? Constitutional: General: Not in acute distress. Appearance: Normal appearance. Not toxic-appearing. Ear, nose, mouth: Bilateral external ear and nose normal. Nose: Nose normal. Mouth: Appearance normal, no bleeding, moist mucus membranes Eyes: General: No scleral icterus. No discharge from bilateral eyes Extraocular Movements: Extraocular movements intact. Pupils equal and reactive bilaterally Cardiovascular: Heart: Regular rhythm. Normal heart sounds. Vascular: No carotid bruit. Edema: No edema in bilateral lower extremities Pulmonary: Effort: Pulmonary effort is normal. No respiratory distress. Breath sounds: Normal breath sounds. No wheezing. Chest wall: No tenderness. Abdominal: Appearance: Not distended Palpations: There is no abdominal tenderness, no guarding. Musculoskeletal: Bilateral upper and lower extremities: Normal range of motion, no deformity Head: Normocephalic and atraumatic. Neck: Normal range of motion and neck supple. No muscular tenderness. Lymphadenopathy: Cervical: No cervical adenopathy. Skin: General: Skin is warm and dry. Coloration: Skin is not jaundiced. Neurological: General: No focal deficit present. Cranial Nerves: No obvious cranial nerve deficit. Psychiatric: Mood and Affect: Mood normal. Thought Content: Thought content normal. Patient has good judgement and insight Mental Status: Alert and oriented to place, person, and time. Labs (more content not included)... Normal [facility] Absolute lymphocyte countOrd ered By: Az Enrique on 01-19-2025 Lymphocytes Auto (Unsp spec) [#/Vol] 1.95 10*3/uL 0.83-4.51 [facility] Absolute neutrophil countOrd ered By: Azvicente Enrique on 01-19-2025 Neutrophils (Bld) [#/Vol] 3.6 10*3/uL 2.0-7.7 [facility] Anion gap in Serum or Plasma Ordered By: Az Iva on 01-19-2025 Anion gap [Moles/Vol] 14 mmol/L 5-15 [facility] Automated lymphocyte count a s percentage of total leukocytesOrdered By: [place] Iva on 01-19-2025 Lymphocytes/100 WBC Auto (Unsp spec) 31.4 % 19-41 [facility] BUN/creatinine ratioOrdered By: [place] [facility] on 01-19-2025 Urea nitrogen/Creatinine [Mass ratio] 26.4 mg/mg High 10- [facility] Basic Metabolic Profile (BMP )on 01-19-2025 BUN/CRE 26.4 RATIO High 10- [facility] Comment on above: Performed By: #### L 500.2500, L100.0100 ####[facility] [address] [place], [address] Calcium [Mass/Vol] 9.2 mg/dL Normal 7.6-11.0 [facility] Comment on above: Performed By: #### L 500.2500, L100.0100 ####[facility] [address] [place], [address] Chloride [Moles/Vol] 102 mmol/L Normal 98-108 [facility] Comment on above: Performed By: #### L 500.2500, L100.0100 ####[facility] [address] [place], [address] CO2 [Moles/Vol] 23.0 mmol/L Normal 21.0-32.0 [facility] Comment on above: Performed By: #### L 500.2500, L100.0100 ####[facility] [address] [place], [address] Creatinine [Mass/Vol] 0.91 mg/dL Normal 0.70-1.20 [facility] Comment on above: Performed By: #### L 500.2500, L100.0100 ####[facility] [address] [place], [address] GAP 14 Normal 5-15 [facility] Comment on above: Performed By: #### L 500.2500, L100.0100 ####[facility] [address] [place], [address] GFR/1.73 sq M.predicted among non-blacks MDRD (S/P/Bld) [Vol rate/Area] 98 mL/min/{1.73_m2} Normal >60 [facility] Comment on above: Result Comment: mL/m in/1.73m2 CKD-EPI Creatinine Equation (2020) Performed By: #### L 500.2500, L100.0100 ####[facility] [address] [place], [address] Glucose [Mass/Vol] 259 mg/dL High 70-99 [facility] Comment on above: Performed By: #### L 500.2500, L100.0100 ####[facility] [address] [place], [address] Potassium [Moles/Vol] 4.6 mmol/L Normal 3.3-5.1 [facility] Comment on above: Performed By: #### L 500.2500, L100.0100 ####[facility] [address] [place], [address] Sodium [Moles/Vol] 139 mmol/L Normal 133-145 [facility] Comment on above: Performed By: #### L 500.2500, L100.0100 ####[facility] [address] [place], [address] Urea nitrogen [Mass/Vol] 24 mg/dL High 4-19 [facility] Comment on above: Performed By: #### L 500.2500, L100.0100 ####[facility] [address] [place], [address] Basophil percentageOrdered B y: [place] Iva on 01-19-2025 Basophils/100 WBC (Bld) 0.8 % 0-1 [facility] CBC W/Diff, Automatedon Absolute Lymph 1.95 X10 3/uL Normal 0.83-4.51 [facility] Comment on above: Performed By: #### L 500.2500, L100.0100 ####[facility] [address] [place], [address] Absolute Neut 3.6 X10 3/uL Normal 2.0-7.7 [facility] Comment on above: Performed By: #### L 500.2500, L100.0100 ####[facility] [address] [place], [address] Basophils/100 WBC (Bld) 0.8 % Normal 0-1 [facility] Comment on above: Performed By: #### L 500.2500, L100.0100 ####[facility] [address] [place], [address] Eosinophils/100 WBC (Bld) 1.9 % Normal 0-5 [facility] Comment on above: Performed By: #### L 500.2500, L100.0100 ####[facility] [address] [place], [address] Erythrocyte distribution width (RBC) [Ratio] 13.2 % Normal 11.6-14.6 [facility] Comment on above: Performed By: #### L 500.2500, L100.0100 ####[facility] [address] [place], [address] Hematocrit (Bld) [Volume fraction] 45.0 % Normal 40-54 [facility] Comment on above: Performed By: #### L 500.2500, L100.0100 ####[facility] [address] [place], [address] Hemoglobin (Bld) [Mass/Vol] 14.9 g/dL Normal 13.0-16.5 [facility] Comment on above: Performed By: #### L 500.2500, L100.0100 ####[facility] [address] [place], [address] IG% 0.500 Normal 0.0-0.9 [facility] Comment on above: Result Comment: IG% - Immature Granulocytes (promyelocytes, myelocytes and metamyelocytes) > 1% indicates that a LEFT SHIFT is Present. Performed By: #### L 500.2500, L100.0100 ####[facility] [address] [place], [address] Lymphocytes/100 WBC (Bld) 31.4 % Normal 19-41 [facility] Comment on above: Performed By: #### L 500.2500, L100.0100 ####[facility] [address] [place], [address] MCH (RBC) [Entitic mass] 28.5 pg Normal 27.0-32.0 [facility] Comment on above: Performed By: #### L 500.2500, L100.0100 ####[facility] [facility] [address] [place], [address] MCHC (RBC) [Mass/Vol] 33.1 g/dL Normal 32-36 [facility] Comment on above: Performed By: #### L 500.2500, L100.0100 ####[facility] [address] [place], [address] MCV (RBC) [Entitic vol] 86.2 fL Normal 80-94 [facility] Comment on above: Performed By: #### L 500.2500, L100.0100 ####[facility] [address] [place], [address] Monocytes/100 WBC (Bld) 7.7 % Normal 0-10 [facility] Comment on above: Performed By: #### L 500.2500, L100.0100 ####[facility] [address] [place], [address] Neutrophils/100 WBC (Bld) 57.7 % Normal 47-70 [facility] Comment on above: Performed By: #### L 500.2500, L100.0100 ####[facility] [address] [place], [address] Nucleated RBC (Bld) [#/Vol] 0 10*3/uL Normal 0-5 [facility] Comment on above: Performed By: #### L 500.2500, L100.0100 ####[facility] [address] [place], [address] Platelet mean volume (Bld) [Entitic vol] 11.8 fL Normal 6.2-12.0 [facility] Comment on above: Performed By: #### L 500.2500, L100.0100 ####[facility] [address] [place], [address] Platelets (Bld) [#/Vol] 189 10*3/uL Normal 150-450 [facility] Comment on above: Performed By: #### L 500.2500, L100.0100 ####[facility] [address] [place], [address] RBC (Bld) [#/Vol] 5.22 10*6/uL Normal 4.6-6.2 [facility] Comment on above: Performed By: #### L 500.2500, L100.0100 ####[facility] [address] [place], [address] RDW SD 41.2 fl Normal 35.1-43.9 [facility] Comment on above: Performed By: #### L 500.2500, L100.0100 ####[facility] [address] [place], [address] WBC (Bld) [#/Vol] 6.2 10*3/uL Normal 4.4-11.0 [facility] Comment on above: Performed By: #### L 500.2500, L100.0100 ####[facility] [address] [place], [address] Carbon dioxide, total [Moles /volume] in Central venous bloodOrdered By: Az Enrique on 01-19-2025 CO2 [Moles/Vol] 23.0 mmol/L 21.0-32.0 [facility] Cardiology Visit Reporton Cardiology Visit Report [facility] [address] [place], [place] [address] OFFICE VISIT Date of Service: 01/19/25 MR#: [id number] Acct: [id number] Name: WALLACE TURK Rep #: [id number] : 1965 Provider: Dr. Az Enrique MD Age/Sex: 59/M Location: [facility] Status: Signed HPI HPI History of Present Illness Details: 59-year-old man with a history of coronary artery disease status post PCI of the LAD in May 2012. He has not had any major cardiac follow-up in a number of years. He does have a history of hypertension, diabetes, hyperlipidemia, who has discontinued all his medications other than aspirin. 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 He says that more recently he has developed chest discomfort which is usually with exertion and goes away with rest and him taking a deep breath. He has not had any dizziness or diaphoresis or near syncope or syncope. He does not like the way the medications made him feel and so he discontinued taking them. He did have a stress test in December 2022 which was abnormal with moderately severe inferior wall defect suggesting an infarct. His stents were in the LAD distribution. An echocardiogram demonstrated preserved ejection fraction. His most recent lipid profile demonstrates a total cholesterol 160 HDL 44 LDL of 82. His physical exam today is unremarkable carotids are normal his electrocardiogram demonstrates sinus rhythm with a rate of 92 bpm and evidence of an anterior infarct. Intake Vital Signs 01/19/25 15:24 Height 5 ft 10 in Weight: 202 lb BMI 29.0 BP 144/88 H Blood Pressure Location Lt brachial Position Sitting Respiration 16 Pulse 93 Pulse Source Monitor Intake Visit Reasons: EST (SELF) Skin Grader Required: No Accompanied by: Self Is patient in pain?: No Allergies atorvastatin (From Lipitor) Adverse Reaction (Severe, Verified 01/19/25 16:11) myalgias Medications ???Medication ???Instructions ???Recorded ???Confirmed ???Type aspirin 81 mg tablet,delayed 81 mg PO QDAY 01/19/25 01/19/25 Hi story release (Adult Aspirin Regimen) PFSH Medical History Erectile dysfunction CAD (coronary artery disease) LILA (obstructive sleep apnea) Neuropathy Obesity (BMI 30.0-34.9) Hyperlipidemia Hypertension Diabetes mellitus, type II Surgical History CAD S/P percutaneous coronary angioplasty ( 05/2012) Family History Mother Diabetes CAD (coronary artery disease) Myocardial infarction CVA (cerebral vascular accident) Father Diabetes Social History Smoking Status: Never smoker alcohol intake: current ROS Const Const: Negative for fatigue, weakness, headache(s), daytime sleepiness or difficulty sleeping ENT ENT: Negative for headache(s), dizziness or Nosebleed/epistaxis Cardio Chest Pain: Yes Frequency: other (intermittant) Character: sharp Onset: exercise Location: mid sternal and left chest Duration: minutes Exacerbation: exercise Relieving: rest Recurrence: exercise and activity Palpitations: No Edema: None Resp Respiratory: Positive for SOB with activity; Negative for SOB at rest, SOB orthopnea SOB lying down or Cough GI GI: Negative nausea, vomiting or heartburn Neuro Neuro: Negative for dizziness, lightheadedness, near syncope, headache(s) or weakness Endo Endo: Negative for fatigue Cardiology Exam Const Appearance: cooperative, healthy appearing, no acute distress, well developed and well groomed Nutritional Appearance: average body habitus and well nourished Orientation: alert, awake and oriented x3 Head Head: normal to inspection, normocephalic and atraumatic Ears: hearing grossly normal bilaterally and external ears normal Nose: external nose normal, nares normal, nasal mucous membranes and turbinates normal, septum normal and no nasal discharge Face and Sinus: face symmetric Mouth: oral mucosae normal, tongue normal, oropharynx normal and moist mucous membranes Teeth and gingiva: dentition normal Throat: posterior oropharynx normal, tonsils normal and uvula midline Eyes General: appearance normal, both eyes and all related structures Eyelids: eyelids normal Conjunctivae: conjunctivae normal Pupils: PERRL, normal by confrontation and accommodation normal EOM: EOM intact bilaterally Neck Neck: normal visual inspection, trachea midline and no JVD JVD: +5 Carotids: normal carotid upstroke and bounding pulses Chest Chest inspection: normal inspection of the chest, symmetric chest movement and normal respiratory effort Auscultation: Bilateral: Clear to Auscultation (more content not included)... Normal [facility] Chest PA and Lateralon 01-19 Chest PA and Lateral [facility] [address] [place], [place] [address] Chest PA and Lateral MR#: [id number] Acct: [id number] Name: WALLACE TURK Rep #: [id number] : 1965 M 59 From: Suly Wilkins PCP: Dr. Oswald Quarles MD Status: REG CLI Study: Chest PA and Lateral Date of Exam: 01/19/25 Exam# [id number] Ordering Dr: Az Enrique MD PROCEDURE: CHEST PA AND LATERAL 01/19/2025 REASON FOR EXAM: CAD TECHNIQUE: CHEST PA AND LATERAL COMPARISON: 07/08/2020 FINDINGS: No focal consolidation. Bibasilar subsegmental atelectasis. No pleural effusion or pneumothorax. Cardiac silhouette is within normal limits. No acute fracture. RAD/Chest PA and Lateral IMPRESSION: No focal consolidations. Bibasilar subsegmental atelectasis. Reading Location: [facility] CC: Dr. Az Enrique MD; Dr. Oswald Quarles MD District Agent: Signed Normal [facility] Chloride assayOrdered By: Nitin Enrique on 01-19-2025 Chloride [Moles/Vol] 102 mmol/L 98-108 [facility] Eosinophil percentageOrdered By: Az Enrique on 01-19-2025 Eosinophils/100 WBC (Bld) 1.9 % 0-5 [facility] Erythrocyte distribution wid th ratioOrdered By: Az Enrique on 01-19-2025 Erythrocyte distribution width (RBC) [Ratio] 13.2 % 11.6-14.6 [facility] Erythrocyte distribution wid th standard deviationOrdered By: Az Enrique on 01-19-2025 Erythrocyte distribution width (RBC) [Ratio] 41.2 fl 35.1-43.9 [facility] Glomerular filtration rate ( GFR) estimation/1.73 sq m using serum, plasma, or whole bOrdered By: Az Enrique on 01-19-2025 GFR/1.73 sq M.predicted among non-blacks MDRD (S/P/Bld) [Vol rate/Area] 98 mL/min/{1.73_m2} >60 [facility] Comment on above: mL/min/1.73m2 CKD-EP I Creatinine Equation (2020) Hematocrit Auto (Bld) [Volum e fraction]Ordered By: Az Enrique on 01-19-2025 Hematocrit (Bld) [Volume fraction] 45.0 % 40-54 [facility] Hemoglobin measurementOrdere d By: Az Enrique on 01-19-2025 Hemoglobin (Bld) [Mass/Vol] 14.9 g/dL 13.0-16.5 [facility] Immature granulocytes/100 WB C Auto (Bld)Ordered By: Az Enrique on 01-19-2025 Immature granulocytes/100 WBC (Bld) 0.500 % 0.0-0.9 [facility] Comment on above: IG% - Immature Granu locytes (promyelocytes, myelocytes and metamyelocytes) > 1% indicates that a LEFT SHIFT is Present. MCV (mean corpuscular volume ) determinationOrdered By: Azvicente Enrique on 01-19-2025 MCV (RBC) [Entitic vol] 86.2 fL 80-94 [facility] Mean corpuscular hemoglobin (MCH) determinationOrdered By: Az Iva on 01-19-2025 MCH (RBC) [Entitic mass] 28.5 pg 27.0-32.0 [facility] Mean corpuscular hemoglobin concentration (MCHC) determinationOrdered By: [place] Iva on 01-19-2025 MCHC (RBC) [Mass/Vol] 33.1 g/dL 32-36 [facility] Mean platelet volume determi nationOrdered By: Azpedro Enrique on 01-19-2025 Platelet mean volume (Bld) [Entitic vol] 11.8 fL 6.2-12.0 [facility] Monocyte percentageOrdered B y: [place] Iva on 01-19-2025 Monocytes/100 WBC (Bld) 7.7 % 0-10 [facility] Neutrophil percentageOrdered By: Az Iva on 01-19-2025 Neutrophils/100 WBC (Bld) 57.7 % 47-70 [facility] Nucleated red blood cell per centageOrdered By: [place] Iva on 01-19-2025 Nucleated RBC/100 WBC (Bld) [Ratio] 0 % 0-5 [facility] Platelet countOrdered By: Cy ril Iva on 01-19-2025 Platelets (Bld) [#/Vol] 189 10*3/uL 150-450 [facility] Potassium measurement (mass/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 [address] MCH (RBC) [Entitic mass] 30 pg Normal 27 - 33 [facility] Comment on above: Performed By: #### 2 53818 #### [facility],[address] [place] [address] MCHC 34 X10 3 Normal 32 - 36 [facility] Comment on above: Performed By: #### 2 58152 #### [facility],[address] [place] [address] MCV (RBC) [Entitic vol] 87 fL Normal 81 - 98 [facility] Comment on above: Performed By: #### 2 39803 #### [place] [address] Pierce # 0.40 x10EE3/UL Normal 0.20 - 1.00 [facility] Comment on above: Performed By: #### 2 44288 #### [place] [address] MONOS % 6.4 % Normal 0.0 - 10.0 [facility] Comment on above: Performed By: #### 2 48054 #### [facility],[address] [place] [address] Morphology Volodymyr (Bld) [Interp] N/A Normal [facility] Comment on above: Result Comment: {CD] Performed By: #### 2 00470 #### [place] [address] Neut # 4.20 x10EE3/UL Normal 1.50 - 7.10 [facility] Comment on above: Performed By: #### 2 49484 #### [place] [address] Neutrophils/100 WBC (Bld) 62.3 % Normal 46.0 - 76.0 [facility] Comment on above: Performed By: #### 2 67450 #### [facility],[address] [place] [address] PLATELET 221 x10EE3/UL Normal 150 - 450 [facility] Comment on above: Performed By: #### 2 70792 #### [facility],[address] [place] [address] 45[address] Platelet mean volume (Bld) [Entitic vol] 9.6 fL Normal 6.4 - 10.5 [facility] Comment on above: Result Comment: AUTO MATED DIFFERENTIAL Performed By: #### 2 69339 #### [facility],[address] [place] [address] 13486 RBC 5.31 x 10EE6/UL Normal 4.50 - 6.00 [facility] Comment on above: Performed By: #### 2 76919 #### [facility],[address] [place] [address] WBC 6.8 x 10EE3/UL Normal 4.5 - 10.8 [facility] Comment on above: Performed By: #### 2 72142 #### [facility],[address] [place] [address] CMP with eGFRon 05-31-[address] AGE [address] [facility] Comment on above: Performed By: #### 2 58155 #### [facility],[address] [place] [address] Albumin [Mass/Vol] 3.6 g/dL Normal 3.4 - 5.0 [facility] Comment on above: Performed By: #### 2 54082 #### [facility],[address] [place] [address] Albumin/Globulin [Mass ratio] 1.0 {ratio} Normal 0.9 - 1.6 [facility] Comment on above: Performed By: #### 2 65221 #### [facility],[address] [place] [address] 37895 ALK PHOS 112 U/L Normal 46 - 116 [facility] Comment on above: Performed By: #### 2 40867 #### [facility],[address] [place] [address] 29436 ALT [Catalytic activity/Vol] 191 U/L High 16 - 63 [facility] Comment on above: Performed By: #### 2 52713 #### [facility],[address] [place] [address] Anion gap [Moles/Vol] 14 mmol/L Normal 10 - 20 [facility] Comment on above: Performed By: #### 2 60510 #### [facility],[address] [place] [address] 88135 AST [Catalytic activity/Vol] 227 U/L High 15 - 37 [facility] Comment on above: Performed By: #### 2 55907 #### [facility],[address] [place] [address] 89757 B/C RATIO 17 ratio Normal 0 - 30 [facility] Comment on above: Performed By: #### 2 33537 #### [facility],[address] [place] [address] Bilirubin [Mass/Vol] 0.5 mg/dL Normal 0.2 - 1.0 [facility] Comment on above: Performed By: #### 2 11067 #### [facility],[address] [place] [address] Calcium [Mass/Vol] 8.5 mg/dL Normal 8.5 - 10.1 [facility] [facility] Comment on above: Performed By: #### 2 [id number] #### [facility],[address] [place] [address] 69763 Chloride [Moles/Vol] 100 mmol/L Normal 98 - 107 [facility] Comment on above: Performed By: #### 2 [id number] #### [facility],[address] [place] [address]3770 CMP with eGFR Normal [facility] Comment on above: Result Comment: COMP REHENSIVE METABOLIC PANEL Performed By: #### 2 72952 #### [facility],[address] [place] [address] 32884 CO2 [Moles/Vol] 24.2 mmol/L Normal 21.0 - 32.0 [facility] Comment on above: Performed By: #### 2 [id number] #### [facility],[address] [place], [place] [id number] Creatinine [Mass/Vol] 1.06 mg/dL Normal 0.70 - 1.30 [facility] Comment on above: Performed By: #### 2 25331 #### [facility],[address] [place] [address] 95890 GFR/1.73 sq M.predicted among non-blacks MDRD (S/P/Bld) [Vol rate/Area] mL/min/{1.73_m2} Normal 60 - 999 [facility] Comment on above: Performed By: #### 2 [id number] #### [facility],[address] [place], [place] [id number] Result Comment: ACCO RDING TO THE NATIONAL KIDNEY DISEASE EDUCATION PROGRAM(NKDE), A NORMAL eGFR IS A VALUE GREATER THAN OR EQUAL TO 60 ML/MIN/1.73 SQ METERS. CHRONIC KIDNEY DISEASE: <60mL/MIN/1.73 SQ METERS KIDNEY FAILURE: <15mL/MIN/1.73 SQ METERS THIS TEST SHOULD ONLY BE USED FOR PATIENTS 18 YEARS OF AGE AND OLDER. Globulin (S) [Mass/Vol] 3.6 g/dL Normal 1.5 - 3.8 [facility] Comment on above: Performed By: #### 2 63762 #### [facility],[address] [place] [address] 13841 Glucose [Mass/Vol] 275 mg/dL High 74 - 106 [facility] Comment on above: Performed By: #### 2 11146 #### [facility],[address] [place] [address] 72862 Potassium [Moles/Vol] 3.4 mmol/L Low 3.5 - 5.1 [facility] Comment on above: Performed By: #### 2 92972 #### [facility],[address] [place] [address] 93486 Protein [Mass/Vol] 7.2 g/dL Normal 6.4 - 8.2 [facility] Comment on above: Performed By: #### 2 92825 #### [facility],[address] [place] [address] 81472 Sodium [Moles/Vol] 135 mmol/L Low 136 - 145 [facility] Comment on above: Performed By: #### 2 22800 #### [facility],[address] [place] [address] 04824 Urea nitrogen [Mass/Vol] 18 mg/dL Normal 7 - 18 [facility] Comment on above: Performed By: #### 2 65450 #### [facility],[address] [place] [address] BRAIN W/O CONTRAST 05-14 CT BRAIN W/O CONTRAST [address] [address] Patient: WALLACE TURK Phone#: : 1965 Age: 57 Gender: M Pt. Type: ER Account: [id number] Location: [facility] Ordering: ANABELA KNOX Exam Date: 05/31/2023/18:15 Family Phys: Charge Code: [id number] Physician: Menard Order #: [id number] Dose#: 52.3 mGy PROCEDURE: CT BRAIN WITHOUT CONTRAST COMPARISON: None. INDICATIONS: Trauma. TECHNIQUE: CT images were obtained without contrast material. All CT scans at this facility use dose modulation, iterative reconstruction, and/or weight based dosing when appropriate to reduce radiation dose to as low as reasonably achievable. IV CONTRAST: No IV contrast used,0ml TOTAL DOSE: 52.3 CTDIvol(mGy) FINDINGS: CEREBRUM: No edema, hemorrhage, mass, or inappropriate atrophy. CEREBELLUM: No edema, hemorrhage, mass, or inappropriate atrophy. BRAINSTEM: No edema, hemorrhage, mass, or inappropriate atrophy. CSF SPACES: Ventricles, cisterns, and sulci are appropriate for age. No hydrocephalus, subarachnoid hemorrhage, or mass. SKULL: No mass or other significant visible lesion. SINUSES: Limited views demonstrate no significant mucosal thickening or fluid. ORBITS: Limited views are unremarkable. OTHER: Left frontal scalp soft tissue hematoma and associated soft tissue swelling. Hematoma measures approximately 3.8 x 0.7 x 3.3 cm. Atherosclerotic calcifications of the intracranial arteries. CONCLUSION: 1. No appreciable acute intracranial abnormality. 2. Left frontal scalp soft tissue hematoma Dictated by: Maddison Helton MD on 06/01/2023 at 7:31 Continued Report - Page 2 of 2 Patient: WALLACE TURK Phone#: : 1965 Age: 57 Gender: M Pt. Type: ER Account: [id number] Location: 052 Ordering: ANABELA MONZONER Exam Date: 05/31/2023/18:15 Family Phys: Charge Code: [id number] Physician: Menard Order #: [id number] Dose#: 52.3 mGy Approved by: Maddison Helton MD on 06/01/2023 at 7:[address] [facility] CT CERVICAL W/O CONTRASTon 1 07-31-2022 CT CERVICAL W/O CONTRAST [place] [address] Patient: WALLACE TURK Phone#: : 1965 Age: 57 Gender: M Pt. Type: ER Account: [id number] Location: 052 Ordering: ANABELA KNOX Exam Date: 05/31/2023/18:15 Family Phys: Charge Code: [id number] Physician: Menard Order #: [id number] Dose#: 14.4 mGy PROCEDURE: CT CERVICAL WITHOUT CONTRAST COMPARISON: None. INDICATIONS: Trauma. TECHNIQUE: Multi-planar CT images were created without intravenous contrast. All CT scans at this facility use dose modulation, iterative reconstruction, and/or weight-based dosing when appropriate to reduce radiation dose to as low as reasonably achievable. IV CONTRAST: No IV contrast used,0ml TOTAL DOSE: 14.4 CTDIvol(mGy) FINDINGS: CRANIOCERVICAL AREA: Normal foramen magnum with no Chiari malformation. PARASPINAL AREA: Normal with no visible mass. BONES: Straightening of the normal cervical lordosis, this may be positional or due to muscle spasm. The dens is intact. The lateral masses are symmetric. OTHER: Nodules in the left lobe of the thyroid, field sales representative nodule measures 0.9 x 0.8 cm. Calcification is seen in the left lobe of the thyroid. CERVICAL DISC LEVELS: C2-C3: No significant disc/facet abnormality, spinal stenosis, or foraminal stenosis. C3-C4: No significant disc/facet abnormality, spinal stenosis, or foraminal stenosis. C4-C5: No significant disc/facet abnormality, spinal stenosis, or foraminal stenosis. C5-C6: Disc height loss and uncovertebral hypertrophy contribute to severe left and mild right foraminal narrowing and at least mild spinal canal narrowing. C6-C7: Disc height loss and uncovertebral hypertrophy contribute to moderate severe bilateral foraminal narrowing and at least mild spinal canal narrowing C7-T1: No significant disc/facet abnormality, spinal stenosis, or foraminal stenosis. CONCLUSION: 1. No acute osseous abnormality. 2. Multilevel degenerative changes of the cervical spine Continued Report - Page 2 of 2 Patient: WALLACE TURK Phone#: : 1965 Age: 57 Gender: M Pt. Type: ER Account: [id number] Location: 052 Ordering: ANABELA KNOX Exam Date: 05/31/2023/18:15 Family Phys: Charge Code: [id number] Physician: Menard Order #: [id number] Dose#: 14.4 mGy 3. Left thyroid nodules. Recommend follow-up thyroid ultrasound for further characterization. Dictated by: Maddison Helton MD on 06/01/2023 at 7:37 Approved by: Maddison Helton MD on 06/01/2023 at 7:[address] [facility] CT CHEST/ABD/PELVIS C+on CT CHEST/ABD/PELVIS + [place] [id number] [place], [place] [address] Patient: WALLACE TURK Phone#: : 1965 Age: 57 Gender: M Pt. Type: ER Account: [id number] Location: 052 Ordering: ANABELA KNOX Exam Date: 05/31/2023/18:19 Family Phys: Charge Code: [id number] Physician: Menard Order #: [id number] Dose#: 42.9 mGy PROCEDURE: CT CHEST/ABD/PELVIS W COMPARISON: None. INDICATIONS: Trauma. TECHNIQUE: After obtaining the patient's consent, CT images were obtained with intravenous contrast material. All CT scans at this facility use dose modulation, iterative reconstruction, and/or weight based dosing when appropriate to reduce radiation dose to as low as reasonably achievable. IV CONTRAST: Visipaque 320,80ml CHEST DOSE: 12.5 CTDIvol(mGy) ABDOMEN DOSE: 30.4 CTDIvol(mGy) FINDINGS: LUNGS: There are dependent changes. No visible pulmonary disease. VASCULATURE: Unremarkable in size BASILIA: Normal. No mass or adenopathy. MEDIASTINUM: Normal. No mass or adenopathy. CARDIAC: Coronary artery stent. PLEURA: Normal. No mass or effusion. CHEST WALL: Normal. No mass or axillary adenopathy. LIVER: Normal. No enlargement, atrophy, abnormal density, or significant focal lesion. BILIARY: Gallbladder is present. PANCREAS: Normal. No lesion, fluid collection, ductal dilatation, or atrophy. SPLEEN: Splenule adjacent to the lower pole of the spleen. KIDNEYS: Kidneys enhance and excrete contrast symmetrically. Nonobstructing left lower pole renal calculi, a field sales representative stone measures 0.4 cm. There are at least 4 stones present. ADRENALS: Normal. No mass or enlargement. AORTA/VASCULAR: No aortic aneurysm. Atherosclerotic calcifications of the aorta and branch vessels. Continued Report - Page 2 of 2 Patient: WALLACE TURK Phone#: : 1965 Age: 57 Gender: M Pt. Type: ER Account: [id number] Location: 052 Ordering: ANABELA KNOX Exam Date: 05/31/2023/18:19 Family Phys: Charge Code: [id number] Physician: Menard Order #: [id number] Dose#: 42.9 mGy RETROPERITONEUM: Normal. No mass or adenopathy. BOWEL/MESENTERY: No bowel obstruction or dilatation. Moderate stool burden. Diverticulosis the sigmoid colon. The appendix is unremarkable in size and contains air. ABDOMINAL WALL: Fat containing bilateral inguinal hernia URINARY BLADDER: Normal. No visible focal wall thickening, lesion, or calculus. PELVIC NODES: Normal. No adenopathy. PELVIC ORGANS: Normal. No visible mass. Pelvic organs appropriate for patient age. BONES: Nondisplaced left 2nd rib fracture anteriorly, series 3, image 22. Disc height loss at L4-5. Nonspecific sclerosis at the SI joints. OTHER: Negative. CONCLUSION: 1. Nondisplaced left 2nd rib fracture 2. No appreciable acute intra-abdominal or pelvic abnormality. 3. Nonobstructing right lower pole nephrolithiasis. Dictated by: Maddison Helton MD on 06/01/2023 at 7:44 Approved by: Maddison Hleton MD on 06/01/2023 at 7:[address] [facility] KNEE COMPLETE LT MIN 4 VIEWS on 05-31-2023 KNEE COMPLETE LT MIN 4 VIEWS [place] [address] Patient: WALLACE TURK Phone#: : 1965 Age: 57 Gender: M Pt. Type: ER Account: [id number] Location: [facility] Ordering: DR. QIAN MAGAÑA Exam Date: 05/31/2023/20:15 Family Phys: OSWALD QUARLES Charge Code: [id number] Physician: Menard Order #: [id number] Dose#: PROCEDURE: X-RAY KNEE LT COMPLETE 4 VIEWS COMPARISON: None. INDICATIONS: Trauma. FINDINGS: BONES: Moderately severe degenerative changes of the knee are present. There is narrowing of the medial compartment. There is a 3 x 4 millimeter projection from the articular surface of the lateral femoral condyle SOFT TISSUES: Negative. No visible soft tissue swelling. EFFUSION: None visible. OTHER: Negative. CONCLUSION: 1. Moderate severe degenerative changes are present. There is no evidence of acute bone abnormality. Dictated by: Alexandrea Carcamo MD on 06/01/2023 at 17:56 Approved by: Alexandrea Carcamo MD on 06/01/2023 at 17:[address] [facility] TROPONIN I, HIGH SENSITIVITY on 05-31-2023 HS TROPONIN 4.4 pg/mL Normal 0.0 - 76.2 [facility] Comment on above: Performed By: #### 2 [id number] #### [facility],[address] [place] [address] CNPNon 12-30-2022 CNPN Telephone (CAWSTR) ----- WALLACE TURK ([id number]) 1965 M Date Time Provider Department 12/30/22 VERONICA CHENG During your visit today, we recorded the following information about you: Mayra Ivey RN 12/30/2022 11:22 AM Signed ----- Message from Veronica Cheng APRN.MAIL PROCESSING EQUIPMENT MECHANIC sent at 12/30/2022 10:07 AM EDT ----- Please call patient and notify him of normal results. Echocardiogram was completed in follow-up from stress test. Echocardiogram reveals normal EF 56% and normal wall motion. Pumping strength of the heart is good no further cardiac work-up. Thank you! Mayra Ivey RN 12/30/2022 11:22 AM Signed Pt. notified. Voices understanding. Mayra Ivey RN Allergies As of Date: 12/30/2022 Noted Allergy Reaction CUCUMBER 02/25/2014 9 - Itching WATERMELON 02/15/2014 7 - Swelling LIPITOR (ATORVASTATIN CALCIUM) 01/17/2015 14 - Other: See Comments Comments: Muscle aches Date Reviewed: 12/19/2022 Reviewed by: Oswald Quarles MD - Fully Assessed Reason for Visit: Results [95] Prescriptions as of 12/30/2022 - lisinopril 2.5 mg tablet Take 2.5 mg by mouth once daily. - rosuvastatin (CRESTOR) 40 mg tablet Take 1 tablet by mouth daily at bedtime. - sildenafil (VIAGRA) 100 mg tablet Take 1 tablet by mouth as needed. - aspirin, enteric coated (ASPIRIN, ENTERIC COATED) 325 mg EC tablet Take 0.5 tablets by mouth once daily. Take with food. - flash glucose sensor (FREESTYLE EDUARDO 14 DAY SENSOR) kit Use to check blood sugars three times daily - Lancets lancets Test Two times a day. Insulin Dep? Yes E11.9 DM 2 - blood sugar diagnostic (BLOOD GLUCOSE TEST) test strip Test 2 times daily, Insulin Dep? No E11.9 DM 2 - multivitamin tablet Take 1 tablet by mouth once daily. 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*05/10/2015 Well adult exam [Z00.00] 05/18/2015 Type 2 diabetes mellitus without retinopathy (H*06/12/2015 Vitreous floaters of both eyes [H43.393] 06/12/2015 Erectile dysfunction [N52.9] 12/11/2017 Screening for prostate cancer [Z12.5] 12/11/2017 Screening for colon cancer [Z12.11] 12/11/2017 Obesity, Class I, BMI 30-34.9 [E66.9] 01/13/2018 Moderate obstructive sleep apnea [G47.33] 01/19/2018 Type 2 diabetes mellitus with peripheral neurop*01/16/2021 Foot pain, bilateral [M79.671, M79.672] 01/16/2021 Low testosterone in male [R79.89] 02/11/2022 Encounter Status:Closed by MAYRA IVEY on 12/30/22 Normal [facility] CNOVon 12-26-2022 CNOV Office Visit (CARDWS ) ----- WALLACE TURK ([id number]) 1965 M Date Time Provider Department 12/26/22 3:30 PM ECHOCARDIOGRAM WSTR CARDWS During your visit today, we recorded the following information about you: Veronica Cheng APRN.MAIL PROCESSING EQUIPMENT MECHANIC 12/30/2022 10:07 AM Signed Please call patient and notify him of normal results. Echocardiogram was completed in follow-up from stress test. Echocardiogram reveals normal EF 56% and normal wall motion. Pumping strength of the heart is good no further cardiac work-up. Thank you! Referring Provider: VERONICA CHENG [[id number]] Allergies As of Date: 12/26/2022 Noted Allergy Reaction CUCUMBER 02/25/2014 9 - Itching WATERMELON 02/15/2014 7 - Swelling LIPITOR (ATORVASTATIN CALCIUM) 01/17/2015 14 - Other: See Comments Comments: Muscle aches Date Reviewed: 12/19/2022 Reviewed by: Oswald Quarles MD - Fully Assessed Visit Diagnosis:Coronary artery disease due to lipid rich plaque [I25.10, I25.83] Order(s):ECHO [[id number]] Reflex Order#: [id number] (Ord#:[id number])Spec. #:[id number]: 1 Prescriptions as of 12/31/2022 - lisinopril 2.5 mg tablet Take 2.5 mg by mouth once daily. - rosuvastatin (CRESTOR) 40 mg tablet Take 1 tablet by mouth daily at bedtime. - sildenafil (VIAGRA) 100 mg tablet Take 1 tablet by mouth as needed. - aspirin, enteric coated (ASPIRIN, ENTERIC COATED) 325 mg EC tablet Take 0.5 tablets by mouth once daily. Take with food. - flash glucose sensor (FREESTYLE EDUARDO 14 DAY SENSOR) kit Use to check blood sugars three times daily - Lancets lancets Test Two times a day. Insulin Dep? Yes E11.9 DM 2 - blood sugar diagnostic (BLOOD GLUCOSE TEST) test strip Test 2 times daily, Insulin Dep? No E11.9 DM 2 - multivitamin tablet Take 1 tablet by mouth once daily. Facility-Administered Medications as of 12/31/2022 - perflutren lipid microspheres 1.3 mL in NaCl (PF) 0.9% 10 mL injection (DEFINITY) - sodium chloride 0.9 % (flush) 10 mL (BD POSIFLUSH) Problem List As Of Date 12/26/2022 Noted Resolved Diabetic eye exam (HCC) [Z01.00, E11.9] 02/15/2014 Coronary artery disease due to lipid rich plaqu*05/10/2015 Essential hypertension [I10] 05/10/2015 Mixed hyperlipidemia [E78.2] 05/10/2015 Type 2 diabetes mellitus with proteinuric diabe*05/10/2015 Well adult exam [Z00.00] 05/18/2015 Type 2 diabetes mellitus without retinopathy (H*06/12/2015 Vitreous floaters of both eyes [H43.393] 06/12/2015 Erectile dysfunction [N52.9] 12/11/2017 Screening for prostate cancer [Z12.5] 12/11/2017 Screening for colon cancer [Z12.11] 12/11/2017 Obesity, Class I, BMI 30-34.9 [E66.9] 01/13/2018 Moderate obstructive sleep apnea [G47.33] 01/19/2018 Type 2 diabetes mellitus with peripheral neurop*01/16/2021 Foot pain, bilateral [M79.671, M79.672] 01/16/2021 Low testosterone in male [R79.89] 02/11/2022 Encounter Status:Closed by VERONICA CHENG on 12/31/22 Normal [facility] ECHOon 12-26-2022 Echocardiography Echocardiography Rep ort: Transthoracic Echo [facility] Date of service: 12/26/2022 3:22:23 PM ASSEMBLER Ordering physician: VERONICA CHENG Indication: Abnormal ECG Technologist: Juani Juarez [facility] Interpreting physician: Tahir Solis DO PATIENT: Name: MR. WALLACE TURK : 1965 Age: 57 years Gender: M History of hypertension, diabetes mellitus, dyslipidemia and coronary artery disease. Previous cardiovascular interventions: PCI Primary rhythm: sinus. Height: 175.90 cm BSA: 2.19 m Weight: 97.98 kg BMI: 31.7 kg/m Heart rate 96 bpm Blood pressure 146/74 mmHg Color Doppler was utilized to interrogate the cardiac valves assessed and spectral Doppler was utilized to determine the flow velocities and pressure gradients reported in this exam. Myocardial strain analysis was performed in this exam to aid in the assessment of cardiac function. MEASUREMENTS: Value Indexed Normal Max aortic dimension 3.1 cm Ao < 3.8 Left atrial volume 59 ml (biplane A-L) 27 ml/m Alexandrea <= 34 LV ID (diastole) 4.3 cm (2D) 1.95 cm/m LV ID (systole) 2.9 cm (2D) 1.31 cm/m IVS, leaflet tips 1.0 cm (2D) Posterior wall thickness 0.9 cm (2D) Left ventricular mass 130 g (2D) 60 g/m Global peak long strain -17.1 % LV stroke volume 66 ml (2D biplane) LV end diastolic volume 118 ml (2D biplane) 53.8 ml/m 34<=EDVi<75 LV end systolic volume 52 ml (2D biplane) 23.7 ml/m Ejection Fraction 56 % (2D biplane) EF > 52 FINDINGS: LEFT VENTRICLE The left ventricle is normal in size. Left ventricular systolic function is normal. Global LV myocardial strain is normal. Grade I left ventricular diastolic dysfunction. Mitral annular lateral E/e': 6.5. Mitral annular septal E/e': 8.1. Wall Motion: All scored segments are normal. RIGHT VENTRICLE The right ventricle is normal in size. Right ventricular systolic function is normal. RV systolic tissue Doppler velocity is 13.0 cm/s. Tricuspid annular displacement is 2.1 cm. Estimated right atrial pressure is not included as the IVC was not seen. LEFT ATRIUM The left atrial cavity is normal in size. RIGHT ATRIUM The right atrial cavity is normal in size. MITRAL VALVE The mitral valve leaflets are structurally normal. There is no mitral valve regurgitation. The pressure half time is 53 msec. The peak mitral E/A ratio is 0.67. The average mitral E/e' ratio is 7.3. The mitral flow deceleration time is 182 msec. TRICUSPID VALVE The tricuspid valve leaflets are structurally normal. There is no tricuspid valve regurgitation. AORTIC VALVE There is no aortic valve regurgitation. Tricuspid aortic valve. There is mild thickening. The peak gradient is 8 mmHg (peak velocity = 143.4 cm/s). PULMONIC VALVE The pulmonic valve cusps are structurally normal. There is trace pulmonic valve regurgitation. AORTA The visualized aorta is normal in size. Measurements - Mid ascending aorta 3.1 cm. PERICARDIUM There is no pericardial effusion. There is an epicardial fat pad. CONCLUSIONS: - Exam indication: Abnormal ECG - The left ventricle is normal in size. Left ventricular systolic function is normal. EF = 56 5% (2D biplane) Grade I left ventricular diastolic dysfunction. - The right ventricle is normal in size. Right ventricular systolic function is normal. - There are no significant valvular abnormalities. - The patient has not had a prior CC echocardiographic exam for comparison. * * * Final * * * [employer] : [id number] Normal [facility] Jordyn 12-19-2022 [facility] Telephone (FAMPWS) ----- WALLACE TURK ([id number]) 1965 M Date Time Provider Department 12/19/22 LILIANA RIOS During your visit today, we recorded the following information about you: Liliana Rios PA-C 12/19/2022 2:40 PM Signed Let patient know that his a1c is 8.5 which is only mildly better than previous check. His cholesterol is very good. Urine shows glucose but otherwise normal. I would like patient to be on some sort of diabetic medication. I saw that he did not stay on actos but I cant tell if there was a reason why. Is he willing to restart metformin or any of his previous diabetic medications? Pati Maciel LPN 12/19/2022 2:58 PM Signed Reviewed results with pt and Liliana's recommendations. Pt verbalizes understanding. Pt states he has lost 30 lbs. Will eat more vegetables. Pt does not want to be on any diabetic medications. Pt states he discussed this in the past d/t they made him feel awful. Message routed to Dr Quarles as becky. Pati Quarles MD 12/19/2022 3:29 PM Signed Patient has refused diabetic meds in the past year and has been made aware of the halfway health related issues associated with this decision. Allergies As of Date: 12/19/2022 Noted Allergy Reaction CUCUMBER 02/25/2014 9 - Itching WATERMELON 02/15/2014 7 - Swelling LIPITOR (ATORVASTATIN CALCIUM) 01/17/2015 14 - Other: See Comments Comments: Muscle aches Date Reviewed: 12/16/2022 Reviewed by: RT Mehnaz(R) - Partially Assessed Reason for Visit: Results [95] Visit Diagnosis:Type 2 diabetes mellitus with peripheral neuropathy (HCC) [E11.42] Prescriptions as of 12/19/2022 - lisinopril 2.5 mg tablet Take 2.5 mg by mouth once daily. - rosuvastatin (CRESTOR) 40 mg tablet Take 1 tablet by mouth daily at bedtime. - sildenafil (VIAGRA) 100 mg tablet Take 1 tablet by mouth as needed. - aspirin, enteric coated (ASPIRIN, ENTERIC COATED) 325 mg EC tablet Take 0.5 tablets by mouth once daily. Take with food. - flash glucose sensor (FREESTYLE EDUARDO 14 DAY SENSOR) kit Use to check blood sugars three times daily - Lancets lancets Test Two times a day. Insulin Dep? Yes E11.9 DM 2 - blood sugar diagnostic (BLOOD GLUCOSE TEST) test strip Test 2 times daily, Insulin Dep? No E11.9 DM 2 - multivitamin tablet Take 1 tablet by mouth once daily. Facility-Administered Medications as of 12/19/2022 - perflutren lipid microspheres 1.3 mL in NaCl (PF) 0.9% 10 mL injection (DEFINITY) - sodium chloride 0.9 % (flush) 10 mL (BD POSIFLUSH) Problem List As Of Date 12/19/2022 Noted Resolved Diabetic eye exam (HCC) [Z01.00, E11.9] 02/15/2014 Coronary artery disease due to lipid rich plaqu*05/10/2015 Essential hypertension [I10] 05/10/2015 Mixed hyperlipidemia [E78.2] 05/10/2015 Type 2 diabetes mellitus with proteinuric diabe*05/10/2015 Well adult exam [Z00.00] 05/18/2015 Type 2 diabetes mellitus without retinopathy (H*06/12/2015 Vitreous floaters of both eyes [H43.393] 06/12/2015 Erectile dysfunction [N52.9] 12/11/2017 Screening for prostate cancer [Z12.5] 12/11/2017 Screening for colon cancer [Z12.11] 12/11/2017 Obesity, Class I, BMI 30-34.9 [E66.9] 01/13/2018 Moderate obstructive sleep apnea [G47.33] 01/19/2018 Type 2 diabetes mellitus with peripheral neurop*01/16/2021 Foot pain, bilateral [M79.671, M79.672] 01/16/2021 Low testosterone in male [R79.89] 02/11/2022 Encounter Status:Closed by OSWALD QUARLES on 12/19/22 Normal [facility] Basic metabolic 2000 panelon 12-18-2022 Anion gap [Moles/Vol] 9 mmol/L Normal 9-18 [facility] Comment on above: Order Comment: Speci men Type: BLOOD SPECIMENOrdering Facility: [facility] Address: [address] [address] [place] [id number] Performed By: #### 2 4321-2, LIPNF ####[facility] LABCLIA [id number] [facility] [id number] [address] [place] Calcium [Mass/Vol] 9.2 mg/dL Normal 8.5-10.2 [facility] Comment on above: Order Comment: Speci men Type: BLOOD SPECIMENOrdering Facility: [facility] Address: [address] [place], [place] [address] Performed By: #### 2 4321-2, LIPNF ####[facility] LABCLIA [id number] [place] [address] [place] Chloride [Moles/Vol] 104 mmol/L Normal 97-105 [facility] Comment on above: Order Comment: Speci men Type: BLOOD SPECIMENOrdering Facility: [facility] Address: [address] [place], [place] [address] Performed By: #### 2 4321-2, LIPNF ####[facility] LABCLIA [id number] [place] [address] [place] CO2 [Moles/Vol] 26 mmol/L Normal 22-30 [facility] Comment on above: Order Comment: Speci men Type: BLOOD SPECIMENOrdering Facility: [facility] Address: [address] [place] [address] Performed By: #### 2 4321-2, LIPNF ####[facility] LABCLIA [id number] [place] [address] [place] Creatinine [Mass/Vol] 0.86 mg/dL Normal 0.73-1.22 [facility] Comment on above: Order Comment: Speci men Type: BLOOD SPECIMENOrdering Facility: [facility] Address: [address] [place], [place] [address] Performed By: #### 2 4321-2, LIPNF ####[facility] LABCLIA [id number] [place] [address] [place] ESTIMATED GLOMERULAR FILTRATION RATE 102 mL/min/1.73m??? Normal >=60 [facility] Comment on above: Order Comment: Speci men Type: BLOOD SPECIMENOrdering Facility: [facility] Address: [address] [place], [place] [address] Result Comment: Gerri mated Glomerular Filtration Rate (eGFR) is calculated using the 2020 CKD-EPI creatinine equation. This equation utilizes serum creatinine, sex, and age as parameters. The creatinine assay has traceable calibration to isotope dilution-mass spectrometry. Refer to KDIGO guidelines for clinical interpretation. In patients with unstable renal function, e.g. those with acute kidney injury, the eGFR may not accurately reflect actual GFR. Performed By: #### 2 4321-2, LIPNF ####[facility] LABCLIA [id number] [place] [address] [place] Glucose [Mass/Vol] 169 mg/dL High 74-99 [facility] Comment on above: Order Comment: Speciram mckee Type: BLOOD SPECIMENOrdering Facility: [facility] Address: [address] [address] Result Comment: The [place] Diabetes Association (ADA) provides guidance for cutoff values for fasting glucose and random glucose. The ADA defines fasting as no caloric intake for at least 8 hours. Fasting plasma glucose results between 100 to 125 mg/dL indicate increased risk for diabetes (prediabetes). Fasting plasma glucose results greater than or equal to 126 mg/dL meet the criteria for diagnosis of diabetes. In the absence of unequivocal hyperglycemia, results should be confirmed by repeat testing. In a patient with classic symptoms of hyperglycemia or hyperglycemic crisis, random plasma glucose results greater than or equal to 200 mg/dL meet the criteria for diagnosis of diabetes. Reference: Standards of Medical Care in Diabetes 2016, [place] Diabetes Association. Diabetes Care. 2016.39(Suppl 1). Performed By: #### 2 4321-2, LIPNF ####[facility] LABIA [id number] [place] [address] [place] Potassium [Moles/Vol] 5.1 mmol/L Normal 3.7-5.1 [facility] Comment on above: Order Comment: Curtis mckee Type: BLOOD SPECIMENOrdering Facility: [facility] Address: [address] [address] Performed By: #### 2 4321-2, LIPNF ####[facility] LABIA [id number] [place] [address] [place] Sodium [Moles/Vol] 139 mmol/L Normal 136-144 [facility] Comment on above: Order Comment: Speci men Type: BLOOD SPECIMENOrdering Facility: [facility] Address: [address] [place] [address] Performed By: #### 2 4321-2, LIPNF ####[facility] LABIA [id number] [address] [place] Urea nitrogen [Mass/Vol] 18 mg/dL Normal 9-24 [facility] Comment on above: Order Comment: Speci men Type: BLOOD SPECIMENOrdering Facility: [facility] Address: [address] [place] [address] Performed By: #### 2 4321-2, LIPNF ####[facility] LABIA [id number] [address] [place] CNOVon 12-18-2022 CNOV Office Visit (FAMPWS ) ----- BURKEWALLACE Hodge ([id number]) 1965 M Date Time Provider Department 12/18/22 4:20 PM OSWALD QUARLES FAMPWS During your visit today, we recorded the following information about you: Pulse Respiration Blood pressure Weight 82/minute 16/minute 124/80 93.9 kg Oswald Quarles MD 12/19/2022 9:36 PM Signed Chief Complaint Patient presents with: Recheck: 4 month follow up HPI Wallace Naveen Burke is a 57 year old male who presents here today for 4 month follow up . Office visit - 4 month follow up Patient with hx of DM2, HTN, HLP, neuropathy, LILA, obesity CAD and those as below. Has continued to work on diet and exercise. Patient continues to refuse diabetic meds. Allergies have bene bothering him. Office visit - medication follow up 09/12/2022 Patient was seen for PE in Aug and had stopped all his meds because he changed his lifestyle and was feeling good. He ended up agreeing to go back on lisinopril He states he feels great. Last 5 Encounter Wt Readings: Date: Wt: 09/12/2022 100.7 kg (222 lb) 08/14/2022 101.6 kg (224 lb) 03/08/2022 105.2 kg (232 lb) 01/30/2022 106.1 kg (234 lb) 10/01/2021 109.4 kg (241 lb 3.2 oz) Office visit - physical 08/2022 Patient with hx of DM2, HTN, HLP, neuropathy, LILA, obesity CAD and those as below. About a month ago or longer he was getting increased acid reflux and had one night he woke up from sleep and vomited. So he decided to stop all his meds except for his Crestor, baby ASA, Mult Vit and prn viagra. Patient claims it is the best he has felt in a long time. Patient has been working harder on diet changes and exercise for weight loss. He knows he is down at least 10 lbs in the past month. Patient has also stopped wearing a CPAP. Past medical history, appointments, medications, allergies reviewed. Previous Medical History PAST MEDICAL HISTORY Diagnosis Date Coronary artery disease due to lipid rich plaque 05/10/2015 Sees Rachel Kilgore [employer] DES[employer]ER with cardiology in [facility]. 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/2015 Type 2 diabetes mellitus without retinopathy (HCC) 06/12/2015 Vitreous floaters of both eyes 06/12/2015 Vitreous floaters of both eyes 06/12/2015 Previous Surgical History PAST SURGICAL HISTORY Procedure Laterality Date PAST SURGICAL HISTORY OF 05/2012 3 stents PAST SURGICAL HISTORY OF Rt achillis repair Family History FAMILY HISTORY Problem Relation Age of Onset Diabetes Mother Coronary Artery Disease Mother of [place] at 70 Lipids Mother Stroke Mother Diabetes Father Alzheimer's Disease Paternal Grandfather Patient Allergies ALLERGIES Allergen Reactions [place] Itching Watermelon Swelling Lipitor [Atorvastat* Other: See Comments Muscle aches Current Medications Current Outpatient Medications on File Prior to Visit Medication Sig lisinopril 2.5 mg tablet Take 2.5 mg by mouth once daily. pioglitazone (ACTOS) 15 mg tablet Take 1 tablet by mouth once daily. rosuvastatin (CRESTOR) 40 mg tablet Take 1 tablet by mouth daily at bedtime. sildenafil (VIAGRA) 100 mg tablet Take 1 tablet by mouth as needed. aspirin, enteric coated (ASPIRIN, ENTERIC COATED) 325 mg EC tablet Take 0.5 tablets by mouth once daily. Take with food. flash glucose sensor ([employer] EDUARDO 14 DAY SENSOR) kit Use to check blood sugars three times daily Lancets lancets Test Two times a day. Insulin Dep? Yes E11.9 DM 2 blood sugar diagnostic (BLOOD GLUCOSE TEST) test strip Test 2 times daily, Insulin Dep? No E11.9 DM 2 multivitamin tablet Take 1 tablet by mouth once daily. Current Facility-Administered Medications on File Prior to Visit Medication perflutren lipid microspheres 1.3 mL in NaCl (PF) 0.9% 10 mL injection (DEFINITY) sodium chloride 0.9 % (flush) 10 mL (BD POSIFLUSH) Social History Social History Tobacco Use Smoking status: Never Smokeless tobacco: Current Types: Chew Tobacco comments: can of chew per day Vaping Use Vaping Use: Never used Substance Use Topics Alcohol use: Yes Comment: on occasion Review of Symptoms REVIEW OF SYSTEMS GENERAL: No unintentional weight loss, malaise or fevers NECK: Negative for lumps, goiter, pain and significant neck swelling RESPIRATORY: Negative for cough, hemoptysis, wheezing, COPD, dyspnea or shortness of breath CARDIOVASCULAR: Negative for chest pain, leg swelling, hypertension, CHF or palpitations GI: No nausea, vomiting, or diarrhea and No heartburn or reflux symptoms (more content not included)... Normal [facility] HbA1c (Bld)on 12-18-2022 Average glucose Estimated from glycated hemoglobin (Bld) [Mass/Vol] 197 mg/dL Normal [facility] Comment on above: Order Comment: Curtis mckee Type: BLOOD SPECIMENOrdering Facility: [facility] Address: [address] [place] [address] Result Comment: eAG: (Estimated average glucose) is a calculated value from HgbA1c and is field sales representative of the average blood glucose level in the last 2-3 month period. Performed By: #### 5 5454-3 ####[facility] LABCLIA [id number] [address] [place] HbA1c (Bld) [Mass fraction] 8.5 % High 4.3-5.6 [facility] Comment on above: Order Comment: Curtis mckee Type: BLOOD SPECIMENOrdering Facility: [facility] Address: [address] [place] [address] Result Comment: [place] Diabetes Association guidelines indicate that patients with HgbA1c in the range 5.7-6.4% are at increased risk for development of diabetes, and intervention by lifestyle modification may be beneficial. HgbA1c greater or equal to 6.5% is considered diagnostic of diabetes. Performed By: #### 5 5454-3 ####[facility] LABIA [id number] [place] [address] [place] LIPID PANEL, NONFASTINGon Cholesterol [Mass/Vol] 115 mg/dL Normal <200 [facility] Comment on above: Order Comment: Curtis rafi Type: BLOOD SPECIMENOrdering Facility: [facility] Address: [address] [place] [address] Result Comment: <200 mg/dL, Desirable 200-239 mg/dL, Borderline high >239 mg/dL, High Performed By: #### 2 4321-2, LIPNF ####[facility] LABIA [id number] [address] [place] HDL CHOLESTEROL, NF 43 mg/dL Normal >39 [facility] Comment on above: Order Comment: Curtis men Type: BLOOD SPECIMENOrdering Facility: [facility] Address: [address] [address] Result Comment: 40-5 9 mg/dL, Acceptable >59 mg/dL, High: Negative risk factor for coronary heart disease <40 mg/dL, Low: Positive risk factor for coronary heart disease Performed By: #### 2 4321-2, LIPNF ####[facility] LABCLIA [id number] [address] OF [facility] LDL CHOLESTEROL, NF 56 mg/dL Normal <100 [facility] Comment on above: Order Comment: Speci rafi Type: BLOOD SPECIMENOrdering Facility: [facility] Address: [address] [address] Result Comment: <100 mg/dL, Optimal 100-129 mg/dL, Near optimal/above optimal 130-159 mg/dL, Borderline high 160-189 mg/dL, High >189 mg/dL, Very high Secondary prevention optimal LDL Cholesterol levels are recommended to be < 70 mg/dL Performed By: #### 2 4321-2, LIPNF ####[facility] LABCLIA [id number] [address] LDL/HDL RATIO, NF 1.30 mg/dL Normal <2.54 [facility] Comment on above: Order Comment: Curtis mckee Type: BLOOD SPECIMENOrdering Facility: [facility] Address: [address] [place] [address] Result Comment: Refe rence: 1. National Cholesterol Education Program ATP III Guideline At-A-Glance Quick Desk Reference: National Heart, Lung, and Blood [place]. National Institutes of Health. 2001: NIH Publication No. 01-3305. 2. An International Atherosclerosis Society position paper: global recommendations for the management of dyslipidemia: executive summary, Atherosclerosis. 2014: 232(2):410-413. Performed By: #### 2 4321-2, LIPNF ####[facility] LABCLIA [id number] [address] [place] NON HDL CHOL, NF 72 mg/dL Normal <130 [facility] Comment on above: Order Comment: Speci men Type: BLOOD SPECIMENOrdering Facility: [facility] Address: [address] [place] [address] Result Comment: <130 mg/dL, Optimal 130-159 mg/dL, Near optimal/above optimal 160-189 mg/dL, Borderline high 190-219 mg/dL, High >219 mg/dL, Very high Secondary prevention optimal non HDL Cholesterol levels are recommended to be <100 mg/dL Performed By: #### 2 4321-2, LIPNF ####[facility] LABCLIA [id number] [address] OF [facility] T CHOL/HDL RATIO NF 2.67 mg/dL Normal <5.10 [facility] Comment on above: Order Comment: Speci men Type: BLOOD SPECIMENOrdering Facility: [facility] Address: [address] [place] [address] Performed By: #### 2 4321-2, LIPNF ####[facility] LABCLIA [id number] [address] TRIGLYCERIDES, NF 82 mg/dL Normal <150 [facility] Comment on above: Order Comment: Speci men Type: BLOOD SPECIMENOrdering Facility: [facility] Address: [address] [place] [address] Result Comment: <150 mg/dL, Normal 150-199 mg/dL, Borderline high 200-499 mg/dL, High >499 mg/dL, Very high Performed By: #### 2 4321-2, LIPNF ####[facility] LABCLIA [id number] [address] VLDL CHOLESTEROL, NF 16 mg/dL Normal <30 [facility] Comment on above: Order Comment: Speci men Type: BLOOD SPECIMENOrdering Facility: [facility] Address: [address] [place] [address] Performed By: #### 2 4321-2, LIPNF ####[facility] LABCLIA [id number] [address] [place] Urinalysis complete panel (U )on 12-18-2022 Bilirubin Ql (U) Negative Normal Negative [facility] Comment on above: Order Comment: Speci men Type: URINE SPECIMENOrdering Facility: [facility] Address: [address] [address] Performed By: #### 2 4356-8 ####[facility] LABCLIA [id number] [address] [place] Clarity (Unsp spec) Clear Normal Clear [facility] Comment on above: Order Comment: Speci men Type: URINE SPECIMENOrdering Facility: [facility] Address: [address] [place] [address] Performed By: #### 2 4356-8 ####[facility] LABCLIA [id number] [address] STATES OF [facility] Color (U) Light Yellow Normal Yellow [facility] Comment on above: Order Comment: Speci men Type: URINE SPECIMENOrdering Facility: [facility] Address: [address] [place] [address] Performed By: #### 2 4356-8 ####[facility] LABCLIA [id number] [place] [address] [place] Glucose Test strip (U) [Mass/Vol] 1+ Abnormal Trace, Negative [facility] Comment on above: Order Comment: Speci men Type: URINE SPECIMENOrdering Facility: [facility] Address: [address] [address] Performed By: #### 2 4356-8 ####[facility] LABCLIA [id number] [place] [address] [place] Hemoglobin Ql (U) Negative Normal Negative, Trace [facility] Comment on above: Order Comment: Speci men Type: URINE SPECIMENOrdering Facility: [facility] Address: [address] [address] Performed By: #### 2 4356-8 ####[facility] LABCLIA [id number] [place] [address] [place] Ketones Ql (U) Negative Normal Trace, Negative [facility] Comment on above: Order Comment: Speci men Type: URINE SPECIMENOrdering Facility: [facility] Address: [address] [place] [address] Performed By: #### 2 4356-8 ####[facility] LABCLIA [id number] [place] [address] [place] Leukocyte esterase Test strip Ql (U) Negative Normal Negative, 25 Elizabet/uL [facility] Comment on above: Order Comment: Speci men Type: URINE SPECIMENOrdering Facility: [facility] Address: [address] [place] [address] Performed By: #### 2 4356-8 ####[facility] LABCLIA [id number] [place] [address] [place] Nitrite Ql (U) Negative Normal Negative [facility] Comment on above: Order Comment: Speci men Type: URINE SPECIMENOrdering Facility: [facility] Address: [address] [place] [address] Performed By: #### 2 4356-8 ####[facility] LABCLIA [id number] [place] [address] [place] pH (U) 6.0 [pH] Normal 5.0-8.0 [facility] Comment on above: Order Comment: Speci men Type: URINE SPECIMENOrdering Facility: [facility] Address: [address] [place] [address] Performed By: #### 2 4356-8 ####[facility] LABCLIA [id number] [place] [address] [place] Protein (U) [Mass/Vol] Negative Normal Trace , Negative [facility] Comment on above: Order Comment: Speci men Type: URINE SPECIMENOrdering Facility: [facility] Address: [address] [place] [address] Performed By: #### 2 4356-8 ####[facility] LABCLIA [id number] [place] [address] [place] RBC LM.HPF (Urine sed) [#/Area] 0-3 /HPF Normal 0-3 /HPF [facility] Comment on above: Order Comment: Speci men Type: URINE SPECIMENOrdering Facility: [facility] Address: [address] [place] [address] Performed By: #### 2 4356-8 ####[facility] LABIA [id number] [place] [address] [place] Specific gravity (U) [Rel density] 1.025 Normal 1.005-1.03 0 [facility] Comment on above: Order Comment: Speci men Type: URINE SPECIMENOrdering Facility: [facility] Address: [address] [place] [address] Performed By: #### 2 4356-8 ####[facility] LABIA [id number] [place] [address] [place] SPERM Present Abnormal None Seen [facility] Comment on above: Order Comment: Speci men Type: URINE SPECIMENOrdering Facility: [facility] Address: [address] [place], [place] [address] Performed By: #### 2 4356-8 ####[facility] LABCLIA [id number] [place] [address] [place] Urobilinogen Ql (U) Negative Normal Negative [facility] Comment on above: Order Comment: Speci men Type: URINE SPECIMENOrdering Facility: [facility] Address: [address] [place] [address] Performed By: #### 2 4356-8 ####[facility] LABCLIA [id number] [address] [place] WBC LM.HPF (Urine sed) [#/Area] 0-5 /HPF Normal 0-5 /HPF [facility] Comment on above: Order Comment: Speci men Type: URINE SPECIMENOrdering Facility: [facility] Address: [address] [id number] Performed By: #### 2 4356-8 ####[facility] LABCLIA [id number] [address] [place] CNPNon 12-17-2022 CNPN Telephone (CAWSTR) ----- WALLACE TURK ([id number]) 1965 M Date Time Provider Department 12/17/22 VERONICA CHENG During your visit today, we recorded the following information about you: Mayra Ivey RN 12/17/2022 2:36 PM Signed ----- Message from Veronica Cheng APRN.MAIL PROCESSING EQUIPMENT MECHANIC sent at 12/17/2022 1:57 PM EDT ----- Please call patient and notify him of stress testing results. There is a small amount of ischemia suggested in the RCA territory which could be attenuation. Recommend he complete an echocardiogram to evaluate wall motion in inferior territory. EKG portion of stress test was normal. Thank you! Mayra Ivey RN 12/17/2022 2:39 PM Signed Pt. notified. Voices understanding. Transferred to [facility] for scheduling. Mayra Ivey RN Allergies As of Date: 12/17/2022 Noted Allergy Reaction CUCUMBER 02/25/2014 9 - Itching WATERMELON 02/15/2014 7 - Swelling LIPITOR (ATORVASTATIN CALCIUM) 01/17/2015 14 - Other: See Comments Comments: Muscle aches Date Reviewed: 12/16/2022 Reviewed by: Lyly Ramirez RT(R) - Partially Assessed Reason for Visit: Results [95] Prescriptions as of 12/17/2022 - lisinopril 2.5 mg tablet Take 2.5 mg by mouth once daily. - pioglitazone (ACTOS) 15 mg tablet Take 1 tablet by mouth once daily. - rosuvastatin (CRESTOR) 40 mg tablet Take 1 tablet by mouth daily at bedtime. - sildenafil (VIAGRA) 100 mg tablet Take 1 tablet by mouth as needed. - aspirin, enteric coated (ASPIRIN, ENTERIC COATED) 325 mg EC tablet Take 0.5 tablets by mouth once daily. Take with food. - flash glucose sensor ([employer] EDUARDO 14 DAY SENSOR) kit Use to check blood sugars three times daily - Lancets lancets Test Two times a day. Insulin Dep? Yes E11.9 DM 2 - blood sugar diagnostic (BLOOD GLUCOSE TEST) test strip Test 2 times daily, Insulin Dep? No E11.9 DM 2 - multivitamin tablet Take 1 tablet by mouth once daily. Facility-Administered Medications as of 12/17/2022 - perflutren lipid microspheres 1.3 mL in NaCl (PF) 0.9% 10 mL injection (DEFINITY) - sodium chloride 0.9 % (flush) 10 mL (BD POSIFLUSH) Problem List As Of Date 12/17/2022 Noted Resolved Diabetic eye exam (HCC) [Z01.00, E11.9] 02/15/2014 Coronary artery disease due to lipid rich plaqu*05/10/2015 Essential hypertension [I10] 05/10/2015 Mixed hyperlipidemia [E78.2] 05/10/2015 Type 2 diabetes mellitus with proteinuric diabe*05/10/2015 Well adult exam [Z00.00] 05/18/2015 Type 2 diabetes mellitus without retinopathy (H*06/12/2015 Vitreous floaters of both eyes [H43.393] 06/12/2015 Erectile dysfunction [N52.9] 12/11/2017 Screening for prostate cancer [Z12.5] 12/11/2017 Screening for colon cancer [Z12.11] 12/11/2017 Obesity, Class I, BMI 30-34.9 [E66.9] 01/13/2018 Moderate obstructive sleep apnea [G47.33] 01/19/2018 Type 2 diabetes mellitus with peripheral neurop*01/16/2021 Foot pain, bilateral [M79.671, M79.672] 01/16/2021 Low testosterone in male [R79.89] 02/11/2022 Encounter Status:Closed by MAYRA IVEY on 12/17/22 Normal [facility] CARDIAC PERF STRESS/EXERC ISEon 12-16-2022 NM CARDIAC PERF STRESS/EXERCISE * * *Final Report* * * DATE OF EXAM: Dec 16 2022 9:50AM WON 0004 - NM CARDIAC PERF STRESS/EXERCISE / PROCEDURE REASON: multiple diagnoses * * * * Physician Interpretation * * * * Stress ECG Report: [facility] [facility] Date of service: 12/16/2022 6:35:43 AM Ordering physician: VERONICA CHENG special forces specialist: La Rebolledo RN Interpreting physician: David Ortiz MD Patient name: MR. WALLACE TURK Age: 57 years Gender: M Height: 175.26 cm BSA: 2.18 m? Weight: 97.98 kg BMI: 31.9 kg/m? Indication: Encounter for screening for cardiovascular disorders and Presence of coronary angioplasty implant and graft Stress ECG Conclusion: Conclusion: Normal Prior exam comparison: No prior CC exam Stress ECG Summary: The patient's resting heart rate was 74 bpm and blood pressure was 146/82 mmHg. The patient exercised according to the [place] 10% protocol. The estimated end-exercise MET level achieved using the FRIEND equation * * * was 9.4, which is within the 50th to 75th percentile for age and sex. The estimated end-exercise MET level achieved using the previous ACSM equation was 11.8. The test was terminated due to general fatigue and the total exercise time was 12 minutes and 0 seconds. No symptoms provoked during stress. The maximum heart rate was 146 bpm, which is 89% of the predicted heart rate for age. This is an adequate heart rate response. Peak blood pressure was 190/88 mmHg. The double product achieved was 90456. Previous cardiovascular interventions: PCI (05/24) Medications: Last Used VIAGRA PRN Resting ECG: Normal Sinus Rhythm Symptoms at rest: No symptoms Exercise Protocol: [place] 10% Stress Exercise Table: +-----+ +------ --+ +---+---+--- +----+---+----+ Stage Speed (MPH) Grade(%) Time (min) HR SYS LARRY RPE SOB METS +-----+ +------ --+ +---+---+--- +----+---+----+ 1 1.7 10.0 2.0 104 144 84 7.0 1.0 4.2 +-----+ +------ --+ +---+---+--- +----+---+----+ 2 2.1 11.0 4.0 115 152 78 10.0 1.0 5.1 +-----+ +------ --+ +---+---+--- +----+---+----+ 3 2.5 12.0 6.0 125 164 84 12.0 3.0 6.1 +-----+ +------ --+ +---+---+--- +----+---+----+ 4 3.0 13.0 8.0 137 182 88 13.0 3.0 7.3 +-----+ +------ --+ +---+---+--- +----+---+----+ 5 3.4 14.0 10.0 144 190 88 14.0 3.0 8.3 +-----+ +------ --+ +---+---+--- +----+---+----+ +-----+ +------ ---+ +---+---+-- -+----+---+----+ Speed (MPH) Grade (%) Time (min) HR SYS LARRY RPE SOB METS +-----+ +------ ---+ +---+---+-- -+----+---+----+ Final 3.8 15.0 12.00 146 190 88 15.0 4.0 9.4 +-----+ +------ ---+ +---+---+-- -+----+---+----+ +------+ + Stage Arrhythmias +------+ + 5 Isotope Injection +------+ + Recovery Table: +------+---+---+---+ Stage HR SYS LARRY +------+---+---+---+ 1 127 +------+---+---+---+ 2 118 160 72 +------+---+---+---+ 3 111 +------+---+---+---+ 4 144 80 +------+---+---+---+ Stress Observations: Resting HR: 74 bpm Peak HR: 146 bpm (89% MPHR) Resting BP: 146 / 82 mmHg Peak BP: 190 / 88 mmHg Total exercise time: 12 minutes 0 seconds METS achieved: 9.4 Chronotropic response index (CRI): 0.80 Heart rate recovery (HRR): 19 bpm Rate Pressure Product (RPP): 74329 Stress Exercise Observations: Reason for test termination: general fatigue, Symptoms during test: No symptoms provoked during stress, Heart rate response: Adequate heart rate response, Normal CRI (> 0.62 on B Liliana) and Normal HRR (>12 or >[address]/EC), Blood pressure response: Normal BP response, ST segment and T wave changes: No ST changes, Nguyen Treadmill Score: Normal Nguyen Treadmill Score (>=5) and Arrhythmias: No arrhythmias * * * IMPORTANT NOTE REGARDING ESTIMATED MET VALUES: Effective 04/30/2020, the reference equation for determining estimated MET values for [facility] stress tests changed. Comparison of test results before and after that date may show a change in estimated MET values for peak/max exercise despite a test duration that is similar in length. The validity of the new FRIEND equation for exercise METS is endorsed by the [place] [employer]. Oksana P, Parth LA, Cande R, Ernesto J, Scout J. New Generalized Equation for Predicting Maximal Oxygen Uptake (from the Fitness Registry and the Importance of Exercise National Database). The [place] Journal of Cardiology. 2017;120(4):688-692). * * * Final * * * PATIENT: Name: MR. WALLACE TURK Age: 57 years Gender: (more content not included)... Normal [facility] Panel Informationon 12-16 [facility] CNOVon 10-28-2022 CNOV Office Visit (CAWSTR ) ----- WALLACE TURK ([id number]) 1965 M Date Time Provider Department 10/28/22 9:30 AM VERONICA CHENG During your visit today, we recorded the following information about you: Temperature Pulse Blood pressure Weight 88 degrees 84/minute 130/80 98 kg Veronica Cheng APRN.MAIL PROCESSING EQUIPMENT MECHANIC 10/28/2022 10:34 AM Signed [facility] Cardiology ([facility]) [address] [facility] [id number] OUTPATIENT VISIT October 28, 2022 9:30 AM Chief Complaint Patient presents with: Consult History of Present Illness: Wallace Turk is a very pleasant 57 year old male who presents to establish cardiology care. He has a past medical history of CAD (status post 3 drug-eluting stents to his LAD May 2012 for abnormal stress testing at [facility]), hypertension, hyperlipidemia, DM2 and obesity. He previously followed with cardiology office in [facility] for the past few years. Today, he explains significant lifestyle modifications and weight loss in attempt to stay off of metformin another glucose lowering medications. He wants to avoid medications with lifestyle modifications due to side effects. He actually stopped all of his medications at one point but his primary care provider encouraged him to restart aspirin and statin. 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 He also completes intentional aerobic exercise. He has no cardiac limitations. He has no cardiac symptoms. He denies chest discomfort, shortness of breath, dizziness, palpitations, orthopnea, LE swelling. He has not had any recent cardiac testing. His last stress test was prior to his PCI in 2011. I think it is reasonable to complete stress testing for restratification as it has been greater than 10 years since PCI. We reviewed cardiac risk factors and modifications. His biggest goal right now is weight loss and improving his A1c. He reports taking medications as prescribed. PAST MEDICAL HISTORY Diagnosis Date Coronary artery disease due to lipid rich plaque 05/10/2015 Sees Rachel Kilgore SOLAR SYSTEMS DESIGNER with cardiology in [facility]. 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/2015 Type 2 diabetes mellitus without retinopathy (HCC) 06/12/2015 Vitreous floaters of both eyes 06/12/2015 Vitreous floaters of both eyes 06/12/2015 PAST SURGICAL HISTORY Procedure Laterality Date PAST SURGICAL HISTORY OF 05/2012 3 stents PAST SURGICAL HISTORY OF Rt achillis repair FAMILY HISTORY Problem Relation Age of Onset Diabetes Mother Coronary Artery Disease Mother of [place] at 70 Lipids Mother Stroke Mother Diabetes Father Alzheimer's Disease Paternal Grandfather Social History Tobacco Use Smoking status: Never Smokeless tobacco: Current Types: Chew Tobacco comments: can of chew per day Vaping Use Vaping Use: Never used Substance Use Topics Alcohol use: Yes Comment: on occasion Cardiac Risk Factors: age (male over 45, female over 55), hyperlipidemia, obesity, diabetes, hypertension, family history of CAD ALLERGIES Allergen Reactions [place] Itching Watermelon Swelling Lipitor [Atorvastat* Other: See Comments Muscle aches Medications: Current Outpatient Medications Medication Sig Dispense Refill lisinopril 2.5 mg tablet Take 2.5 mg by mouth once daily. pioglitazone (ACTOS) 15 mg tablet Take 1 tablet by mouth once daily. 30 tablet 11 rosuvastatin (CRESTOR) 40 mg tablet Take 1 tablet by mouth daily at bedtime. 90 tablet 1 sildenafil (VIAGRA) 100 mg tablet Take 1 tablet by mouth as needed. 30 tablet 5 aspirin, enteric coated (ASPIRIN, ENTERIC COATED) 325 mg EC tablet Take 0.5 tablets by mouth once daily. Take with food. flash glucose sensor (FREESTYLE EDUARDO 14 DAY SENSOR) kit Use to check blood sugars three times daily 2 Kit 3 Lancets lancets Test Two times a day. Insulin Dep? Yes E11.9 DM 2 200 Each 4 blood sugar diagnostic (BLOOD GLUCOSE TEST) test strip Test 2 times daily, Insulin Dep? No E11.9 DM 2 200 Strip 4 multivitamin tablet Take 1 tablet by mouth once daily. No current facility-administered medications for this visit. Review of Systems Constitutional: Negative for chills, diaphoresis, fever, malaise/fatigue and weight loss. HENT: Negative for congestion, ear pain, nosebleeds, sinus pain and sore throat. Eyes: Negative for pain. Respiratory: Negative for cough, shortness of breath and wheezing. Cardiovascular: Negative for chest (more content not included)... Normal [facility] ECG COMPLETEon 10-28-2022 ECG COMPLETE Ventricular Rate : 7 7 BPM Atrial Rate : 77 BPM P-R Interval : 172 ms QRS Duration : 104 ms Q-T Interval : 378 ms QTC Calculation(Bazett) : 427 ms Calculated P [place] : 50 degrees Calculated R [place] : 40 degrees Calculated T [place] : 53 degrees NORMAL SINUS RHYTHM NORMAL ECG Confirmed by ROMEO ROMERO DO ([id number]) on 10/29/2022 7:56:46 PM NAME : WALLACE TURK PID : [id number] : 1965 Gender : Male Race : ORD : [id number] Procedure Date : Oct 28 2022 09:41:12 Edit Date : Oct 29 2022 19:56:49 Diagnosis: NORMAL SINUS RHYTHM NORMAL ECG Confirmed by ROMEO ROMERO DO ([id number]) on 10/29/2022 7:56:46 PM Test Reason : Location : 136 : [facility] Overread By : ROMEO ROMERO DO Edited By : ROMEO ROMERO DO Referred By : VERONICA CHENG Acquired by : Jane sarah [facility] ANKLE COMPLETE RTon 10-11-19 23 ANKLE COMPLETE RT [place] [address] Patient: WALLACE TURK Phone#: : 1965 Age: 57 Gender: M Pt. Type: Out Account: [id number] Location: Ordering: [place] Exam Date: 10/10/2022/16:13 Family Phys: OSWALD QUARLES Charge Code: 039679 Physician: Menard Order #: [id number] Dose#: PROCEDURE: X-RAY ANKLE COMPLETE RT MIN 3 VIEWS COMPARISON: None. INDICATIONS: Pain. FINDINGS: BONES: Normal. No significant arthropathy or acute abnormality. No fracture or dislocation. Prominent posterior process of the talus. Enthesopathy at the Achilles attachment. Spurring at the superior aspect of the navicular. SOFT TISSUES: Soft tissue stranding of the distal lower extremity. Soft tissue swelling over the lateral malleolus EFFUSION: None visible. OTHER: Atherosclerotic calcifications of the peripheral arteries CONCLUSION: 1. No acute osseous abnormality 2. Soft tissue swelling and stranding Dictated by: Maddison Helton MD on 10/10/2022 at 16:25 Approved by: Maddison Helton MD on 10/10/2022 at 16:[address] [facility] Estradiol SerPl-mCncon 03-08 E2 [Mass/Vol] pg/mL Normal <38 [facility] Comment on above: Order Comment: Curtis mckee Type: BLOOD SPECIMEN Ordering Facility: [facility] Address: [address] [place] [address] Result Comment: This test is not suitable for patients receiving treatment with the drug Fulvestrant (Faslodex). The drug causes an interference leading to falsely elevated estradiol results. Performed By: #### 1 0501-5, 2243-4, 2842-3 #### [facility] CLIA [id number] [address] [place] [address] [place] LH SerPl-aCncon 03-08-2022 Lutropin Qn 3.8 m[IU]/mL Normal 1.8-10.8 [facility] Comment on above: Order Comment: Curtis mckee Type: BLOOD SPECIMEN Ordering Facility: [facility] Address: [address] [place] [address] Performed By: #### 1 0501-5, 2243-4, 2842-3 #### [facility] CLIA [id number] [address] [place] [address] [place] Prolactin SerPl-mCncon 03-08 Prolactin [Mass/Vol] 4.7 ng/mL Normal 4.0-15.2 [facility] Comment on above: Order Comment: Speci men Type: BLOOD SPECIMEN Ordering Facility: [facility] Address: [address] [place] [address] Result Comment: Prol actin test is performed using the [employer] Electrochemiluminescence Immunoassay method. Results obtained with different methods or kits cannot be used interchangeably. Performed By: #### 1 0501-5, 2243-4, 2842-3 #### [facility] CLIA [id number] [address] [place] [address] [place] Testost SerPl-mCncon 022 Testosterone [Mass/Vol] 256 ng/dL Normal 193-824 M [facility] Comment on above: Order Comment: Speci men Type: BLOOD SPECIMEN Ordering Facility: [facility] Address: [address] [place] [address] Result Comment: A te stosterone level in the 193-320 ng/dL range with associated clinical symptoms is considered low and may indicate hypogonadism (from [facility] 2010 363:123-135). Results >320 ng/dL are considered normal. Performed By: #### 2 986-8 #### [facility] CLIA [id number] [address] [place] [address] [place] UA DIP, URINE (POC)on 2021 BILIRUBIN UA (POCT) Negative Negative [facility] CLARITY UA (POCT) Clear [facility] COLOR UA (POCT) Yellow [facility] GLUCOSE UA (POCT) 100 mg/dL Abnormal Negative mg/dL [facility] HEMOGLOBIN/BLOOD UA (POCT) Negative Negative [facility] KETONE UA (POCT) Negative Negative mg/dL [facility] LEUKOCYTES UA (POCT) Negative Negative [facility] NITRITE UA (POCT) Negative Negative [facility] PH UA (POCT) 5.5 4.5 - 8.0 [facility] Protein Ql (U) Negative Negative mg/dL [facility] SPECIFIC GRAVITY UA (POCT) >=1.030 1.005 - 1.030 [facility] UROBILINOGEN UA (POCT) 0.2 E.U./dL Crystal l E.U./dL [facility] LIPID PANEL, NONFASTINGon Cholesterol [Mass/Vol] 319 mg/dL High <200 mg/dL [facility] HDL Cholesterol, Nonfasting 43 mg/dL >39 mg/dL [facility] LDL Cholesterol, Nonfasting [facility] LDL/HDL Ratio, Nonfasting [facility] Non HDL Cholesterol, Nonfasting 276 mg/dL High <130 mg/dL [facility] Total Chol/HDL Ratio, Nonfasting 7.42 mg/dL High <5.10 mg/dL [facility] Triglycerides, Nonfasting 434 mg/dL High <150 mg/dL [facility] VLDL Cholesterol, Nonfasting [facility] TESTOSTERONE TOTALon 022 Testosterone [Mass/Vol] 205 ng/dL 193 - 824 ng/dL [facility] HEMOGLOBIN A1C (POC)on 01-30 HbA1c (Bld) [Mass fraction] 7.5 % Abnormal 4.2 - 5.6 % [facility] Vital Signs Date Time Vital Sign Value Performing Clinician Faci lity 03-17-2025 18:00-0400 Diastolic blood pressure 80 mm[Hg] Dr. Oswald Quarles MD Work Phone: [facility] 03-17-2025 18:00-0400 Heart rate 98 /min Dr. Oswald Quarles MD Work Phone: [facility] 03-17-2025 18:00-0400 Respiratory rate 12 /min Dr. Oswald Quarles MD Work Phone: [facility] 03-17-2025 18:00-0400 SaO2% (BldA) [Mass fraction] 97 % Dr. Oswald Quarles MD Work Phone: [facility] 03-17-2025 18:00-0400 Systolic blood pressure 161 mm[Hg] Dr. Oswald Quarles MD Work Phone: [facility] 03-17-2025 17:45-0400 Body temperature 97.8 [degF] Dr. Oswald Quarles MD Work Phone: [facility] 03-17-2025 17:29-0400 Body height 177.[address] Oswald Quarles MD Work Phone: [facility] 03-17-2025 17:29-0400 Body mass index (BMI) [Ratio] 30.4 kg/m2 Dr. Oswald Quarles MD Work Phone: [facility] 03-17-2025 17:29-0400 Body weight 96.[address] Oswald Quarles MD Work Phone: [facility] 03-15-2025 11:29-0400 Body height 175.3 cm Hossein Romero MEDICAL I D SALES - MAIL PROCESSING EQUIPMENT MECHANIC Work Phone: [facility] 03-15-2025 11:29-0400 Body mass index (BMI) [Ratio] 30.27 kg/m2 Hossein Romero MEDICAL I D SALES - MAIL PROCESSING EQUIPMENT MECHANIC Work Phone: [facility] 03-15-2025 11:29-0400 Body weight 92.99 kg Hossein Romero MEDICAL I D SALES - MAIL PROCESSING EQUIPMENT MECHANIC Work Phone: [facility] 03-15-2025 11:29-0400 Diastolic blood pressure 74 mm[Hg] Hossein Romero MEDICAL I D SALES - MAIL PROCESSING EQUIPMENT MECHANIC Work Phone: [facility] 03-15-2025 11:29-0400 Heart rate 82 /min Hossein Romero MEDICAL I D SALES - MAIL PROCESSING EQUIPMENT MECHANIC Work Phone: [facility] 03-15-2025 11:29-0400 Systolic blood pressure 130 mm[Hg] Hossein Romero MEDICAL I D SALES - MAIL PROCESSING EQUIPMENT MECHANIC Work Phone: [facility] 03-08-2025 12:00-0400 Diastolic blood pressure 82 mm[Hg] Jewel Lane MD Work Phone: [facility] 03-08-2025 12:00-0400 Heart rate 88 /min Jewel Lane MD Work Phone: [facility] 03-08-2025 12:00-0400 SaO2% (BldA) [Mass fraction] 95 % Jewel Lane MD Work Phone: [facility] 03-08-2025 12:00-0400 Systolic blood pressure 157 mm[Hg] Jewel Lane MD Work Phone: [facility] 03-08-2025 08:00-0400 Body temperature 97.7 [degF] Jewel Lane MD Work Phone: [facility] 03-08-2025 06:41-0400 Respiratory rate 16 /min Jewel Lane MD Work Phone: [facility] 03-07-2025 06:38-0400 Body mass index (BMI) [Ratio] 29.29 kg/m2 Jewel Lane MD Work Phone: [facility] 03-07-2025 06:38-0400 Body weight [address] MD Work Phone: [facility] 03-06-2025 06:22-0400 Body height 175.[address] MD Work Phone: [facility] 03-04-2025 12:54-0400 SaO2% (BldA) [Mass fraction] 98.6 % Jewel Lane MD Work Phone: [facility] 03-04-2025 11:57-0400 SaO2% (BldA) [Mass fraction] 98.3 % Jewel Lane MD Work Phone: [facility] 02-28-2025 05:33-0400 Body temperature 96.21 [degF] Jewel Lane MD Work Phone: [facility] 02-28-2025 05:33-0400 Diastolic blood pressure 94 mm[Hg] Jewel Lane MD Work Phone: [facility] 02-28-2025 05:33-0400 Heart rate 79 /min Jewel Lane MD Work Phone: [facility] 02-28-2025 05:33-0400 Respiratory rate 16 /min Jewel Lane MD Work Phone: [facility] 02-28-2025 05:33-0400 SaO2% (BldA) [Mass fraction] 97 % Jewel Lane MD Work Phone: [facility] 02-28-2025 05:33-0400 Systolic blood pressure 154 mm[Hg] Jewel Lane MD Work Phone: [facility] 02-24-2025 11:33-0400 Diastolic blood pressure 78 mm[Hg] Richard Coldsnow PA-C Work Phone: [facility] 02-24-2025 11:33-0400 Systolic blood pressure 129 mm[Hg] Richard Coldsnow PA-C Work Phone: [facility] 02-24-2025 10:59-0400 Body height 175.3 cm Richard Coldsnow PA-C Work Phone: [facility] 02-24-2025 10:59-0400 Body mass index (BMI) [Ratio] 29.09 kg/m2 Richard Coldsnow PA-C Work Phone: [facility] 02-24-2025 10:59-0400 Body weight 89.36 kg Richard Coldsnow PA-C Work Phone: [facility] 02-24-2025 10:59-0400 Heart rate 72 /min Richard Coldsnow PA-C Work Phone: [facility] 02-09-2025 14:53-0400 Body height 177.[address] MD Work Phone: [facility] 02-09-2025 14:53-0400 Body mass index (BMI) [Ratio] 27.84 kg/m2 Jewel Lane MD Work Phone: [facility] 02-09-2025 14:53-0400 Body weight [address] MD Work Phone: [facility] 02-09-2025 14:53-0400 Diastolic blood pressure 83 mm[Hg] Jewel Lane MD Work Phone: [facility] 02-09-2025 14:53-0400 Heart rate 81 /min Jewel Lane MD Work Phone: [facility] 02-09-2025 14:53-0400 Systolic blood pressure 132 mm[Hg] Jewel Lane MD Work Phone: [facility] 02-07-2025 09:54-0400 Body height 177.[address] Oswald Quarles MD Work Phone: [facility] 02-07-2025 09:54-0400 Body weight 91.[address] Oswald Quarles MD Work Phone: 0(520)514-429261 [place] [address] 02-04-2025 11:08-0400 Body mass index (BMI) [Ratio] 29 kg/m2 Dr. Oswald Quarles MD Work Phone: 7(547)338-558761 [place] [address] 01-19-2025 15:24-0400 Body height 177.[address] Oswald Quarles MD Work Phone: 9(605)[phone] [place] [address] 01-19-2025 15:24-0400 Body mass index (BMI) [Ratio] 29 kg/m2 Dr. Oswald Quarles MD Work Phone: 1(493)102-700361 [place] [address] 01-19-2025 15:24-0400 Body weight 91.[address] Oswald Quarles MD Work Phone: 0(766)817-849297 [place] [address] 01-19-2025 15:24-0400 Diastolic blood pressure 88 mm[Hg] Dr. Oswald Quarles MD Work Phone: 9(895)383-109097 [place] [address] 01-19-2025 15:24-0400 Heart rate 93 /min Dr. Oswald Quarles MD Work Phone: 6(324)856-692997 [place] [address] 01-19-2025 15:24-0400 Respiratory rate 16 /min Dr. Oswald Quarles MD Work Phone: 8(808)145-277897 [place] [address] 01-19-2025 15:24-0400 Systolic blood pressure 144 mm[Hg] Dr. Oswald Quarles MD Work Phone: [facility] 10-15-2023 07:57-0400 Body height 176.5 cm Adwoa Cioce MEDICAL I D SALES.MAIL PROCESSING EQUIPMENT MECHANIC Work Phone: [facility] 10-15-2023 07:57-0400 Body temperature 97.9 [degF] Adwoa Cioce MEDICAL I D SALES.MAIL PROCESSING EQUIPMENT MECHANIC Work Phone: [facility] 10-15-2023 07:57-0400 Body weight 93.17 kg Adwoa Cioce MEDICAL I D SALES.MAIL PROCESSING EQUIPMENT MECHANIC Work Phone: [facility] 10-15-2023 07:57-0400 Diastolic blood pressure 88 mm[Hg] Adwoa Cioce MEDICAL I D SALES.MAIL PROCESSING EQUIPMENT MECHANIC Work Phone: [facility] 10-15-2023 07:57-0400 Heart rate 100 /min Adwoa Cioce MEDICAL I D SALES.MAIL PROCESSING EQUIPMENT MECHANIC Work Phone: [facility] 10-15-2023 07:57-0400 SaO2% (BldA) [Mass fraction] 96 % Adwoa Cioce MEDICAL I D SALES.MAIL PROCESSING EQUIPMENT MECHANIC Work Phone: [facility] 10-15-2023 07:57-0400 Systolic blood pressure 156 mm[Hg] Adwoa Cioce MEDICAL I D SALES.MAIL PROCESSING EQUIPMENT MECHANIC Work Phone: [facility] 09-10-2023 15:32-0500 Body height 176.5 cm Oswald Quarles MD Work Phone: [facility] 09-10-2023 15:32-0500 Body weight 94.8 kg Oswald Quarles MD Work Phone: [facility] 09-10-2023 15:32-0500 Diastolic blood pressure 78 mm[Hg] Oswald Quarles MD Work Phone: [facility] 09-10-2023 15:32-0500 Heart rate 86 /min Oswald Quarles MD Work Phone: [facility] 09-10-2023 15:32-0500 Respiratory rate 16 /min Oswald Quarles MD Work Phone: [facility] 09-10-2023 15:32-0500 Systolic blood pressure 124 mm[Hg] Oswald Quarles MD Work Phone: [facility] 2023 12:22-0500 Heart rate 96 /min Ashok Marcelino MD Work Phone: [facility] 2023 11:35-0500 Body weight 92.53 kg Ashok Marcelino MD Work Phone: [facility] 2023 11:35-0500 Diastolic blood pressure 74 mm[Hg] Ashok Marcelnio MD Work Phone: [facility] 2023 11:35-0500 Respiratory rate 16 /min Ashok Marcelino MD Work Phone: [facility] 2023 11:35-0500 SaO2% (BldA) [Mass fraction] 96 % Ashok Marcelino MD Work Phone: [facility] 2023 11:35-0500 Systolic blood pressure 124 mm[Hg] Ashok Marcelino MD Work Phone: [facility] 06-10-2023 10:44-0500 Body weight 92.81 kg Ashok Marcelino MD Work Phone: [facility] 06-10-2023 10:44-0500 Diastolic blood pressure 84 mm[Hg] Ashok Marcelino MD Work Phone: [facility] 06-10-2023 10:44-0500 Heart rate 103 /min Ashok Marcelino MD Work Phone: [facility] [facility] 06[facility]10-2023 10:44-0500 Respiratory rate 18 /min Ashok Marcelino MD Work Phone: [facility] 06-10-2023 10:44-0500 SaO2% (BldA) [Mass fraction] 97 % Ashok Marcelino MD Work Phone: [facility] 06-10-2023 10:44-0500 Systolic blood pressure 122 mm[Hg] Ashok Marcelino MD Work Phone: [facility] 09-12-2022 07:46-0500 Body weight 100.7 kg Liliana Rios PA-C Work Phone: [facility] 09-12-2022 07:46-0500 Diastolic blood pressure 86 mm[Hg] Liliana Rios PA-C Work Phone: [facility] 09-12-2022 07:46-0500 Heart rate 86 /min Liliana Rios PA-C Work Phone: [facility] 09-12-2022 07:46-0500 Respiratory rate 16 /min Liliana Rios PA-C Work Phone: [facility] 09-12-2022 07:46-0500 SaO2% (BldA) [Mass fraction] 96 % Liliana Rios PA-C Work Phone: [facility] 09-12-2022 07:46-0500 Systolic blood pressure 126 mm[Hg] Liliana Rios PA-C Work Phone: [facility] 08-14-2022 17:07-0500 Body height 175.9 cm Oswald Quarles MD Work Phone: [facility] 08-14-2022 17:07-0500 Body weight 101.61 kg Oswald Quarles MD Work Phone: [facility] 08-14-2022 17:07-0500 Diastolic blood pressure 98 mm[Hg] Oswald Quarles MD Work Phone: [facility] 08-14-2022 17:07-0500 Heart rate 82 /min Oswald Quarles MD Work Phone: [facility] 08-14-2022 17:07-0500 Respiratory rate 16 /min Oswald Quarles MD Work Phone: [facility] 08-14-2022 17:07-0500 Systolic blood pressure 168 mm[Hg] Oswald Quarles MD Work Phone: [facility] 03-08-2022 08:46-0400 Body height 177.8 cm Akira Li MD Work Phone: [facility] 03-08-2022 08:46-0400 Body weight 105.23 kg Akira Li MD Work Phone: [facility] 01-30-2022 17:44-0400 Body weight 106.14 kg Oswald Quarles MD Work Phone: [facility] 01-30-2022 17:44-0400 Diastolic blood pressure 84 mm[Hg] Oswald Quarles MD Work Phone: [facility] 01-30-2022 17:44-0400 Heart rate 88 /min Oswald Quarles MD Work Phone: [facility] 01-30-2022 17:44-0400 Respiratory rate 16 /min Oswald Quarles MD Work Phone: [facility] 01-30-2022 17:44-0400 Systolic blood pressure 126 mm[Hg] Oswald Quarles MD Work Phone: [facility] 10-01-2021 13:08-0400 Body temperature 98.49 [degF] Debra Praisler-Wood MEDICAL I D SALES.MAIL PROCESSING EQUIPMENT MECHANIC Work Phone: [facility] 10-01-2021 13:08-0400 Body weight 109.41 kg Debra Praisler-Wood MEDICAL I D SALES.MAIL PROCESSING EQUIPMENT MECHANIC Work Phone: [facility] 10-01-2021 13:08-0400 Diastolic blood pressure 88 mm[Hg] Debra Praisler-Wood MEDICAL I D SALES.MAIL PROCESSING EQUIPMENT MECHANIC Work Phone: [facility] 10-01-2021 13:08-0400 Heart rate 101 /min Debra Praisler-Wood MEDICAL I D SALES.MAIL PROCESSING EQUIPMENT MECHANIC Work Phone: [facility] 10-01-2021 13:08-0400 Respiratory rate 21 /min Debra Praisler-Wood MEDICAL I D SALES.MAIL PROCESSING EQUIPMENT MECHANIC Work Phone: [facility] 10-01-2021 13:08-0400 SaO2% (BldA) [Mass fraction] 99 % Debra Praisler-Wood MEDICAL I D SALES.MAIL PROCESSING EQUIPMENT MECHANIC Work Phone: [facility] 10-01-2021 13:08-0400 Systolic blood pressure 138 mm[Hg] Debra Praisler-Wood MEDICAL I D SALES.MAIL PROCESSING EQUIPMENT MECHANIC Work Phone: [facility] Encounters Encounter Date Encounter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 03-17-2025 Assessment of risk of venous thromboembolism [facility] Start: 03-17-2025 Continuous pulse oximetry [facility] Start: 03-17-2025 Insertion of catheter into peripheral vein [facility] Start: 03-17-2025 Measuring intake and output [facility] Start: 03-17-2025 Providing care according to standard [facility] Start: 03-17-2025 Vital signs measurements [facility] Start: 03-17-2025 Verification routine [facility] Start: 03-17-2025 Following clinical pathway protocol [facility] Start: 03-17-2025 End: 03-17-2025 [facility] Start: 03-17-2025 Hospital admission, emergency, from emergency room, medical nature [facility] Start: 03-17-2025 Partial thromboplastin time, activated [facility] Start: 03-17-2025 Prothrombin time [facility] Start: 03-17-2025 Plain chest X-ray Chest 1 View (Portable) [facility] Start: 03-17-2025 [facility] Start: 03-17-2025 Patient referral to dietitian [facility] Start: 03-15-2025 End: 03-15-2025 Patient encounter procedure 03/15/2025 11:30 AM EDT Office Visit [facility] Cardiovascular Thoracic Surgery [facility] [address] [place] [phone] Hossein Romero, MEDICAL I D SALES - MAIL PROCESSING EQUIPMENT MECHANIC [address] [address] [facility] Cardiovascular Thoracic Surgery [facility] Start: 03-14-2025 COVID-19 Vaccine ( season) COVID-19 Vaccine ( season) [facility] Start: 03-14-2025 Influenza vaccination Influenza Vaccine (#1) [facility] Start: 03-04-2025 End: 03-04-2025 Admission to [facility] day surgery center [facility] Comment on above: CORONARY ARTERY BYPASS GRAFT [10691 (CPT )] Start: 03-04-2025 End: 03-04-2025 Anesthesia consultation 03/04/2025 7:00 AM EDT Anesthesia Event [facility] MA[facility] [address] [place] [phone] Antwon Copeland, MEDICAL I D SALES - FEATHER BONER [address] [place] [address] [facility] Start: 03-04-2025 End: 03-04-2025 Cabg w/arterial graft three arterial grafts [facility] Operating Room Start: 03-04-2025 End: 03-04-2025 Echo transesophag r-t 2d w/prb img acquisj i&r [facility] Operating Room Start: 03-04-2025 Subsequent hospital visit by physician [facility] Start: 02-28-2025 End: 02-28-2025 Admission to same day surgery center 02/28/2025 7:30 AM EDT - 02/28/2025 12:30 PM EDT Surgery [facility] [address] [place] [phone] MD [address] [facility] [address] [place] [id number] CORONARY ARTERY BYPASS GRAFT [38942 (CPT )] [facility] Comment on above: CORONARY ARTERY BYPASS GRAFT [55438 (CPT )] Start: 02-28-2025 End: 02-28-2025 Anesthesia consultation [facility] Start: 02-28-2025 End: 02-28-2025 Cabg w/arterial graft three arterial grafts CORONARY ARTERY BYPASS GRAFT Atherosclerotic heart disease of [place] coronary artery with other forms of angina pectoris (HCC) 02/28/2025 7:30 AM EDT [facility] Operating Room Start: 02-28-2025 End: 02-28-2025 Echo transesophag r-t 2d w/prb img acquisj i&r ECHOCARDIOGRAM, TRANSESOPHAGEAL Atherosclerotic heart disease of [place] coronary artery with other forms of angina pectoris (HCC) 02/28/2025 7:30 AM EDT [facility] Operating Room Start: 02-28-2025 Subsequent hospital visit by physician 02/28/2025 7:30 AM EDT Hospital Encounter [facility] MAIN OR [address] [place] [address] MD [address] [place] [address] [facility] MAIN OR Start: 02-25-2025 Procedure [facility] Start: 02-24-2025 End: 02-24-2026 25-hydroxyvitamin D3 [Mass/volume] in Serum or Plasma Vitamin D Deficiency Screening (Vit D 25) Lab Routine Type 2 diabetes mellitus with hyperglycemia, without long-term current use of insulin (HCC) Expected: 02/24/2025 (Approximate), Expires: 02/24/2026 [employer] Comment on above: Expected: 02/24/2025 (Approximate), Expi res: 02/24/2026 Start: 02-24-2025 End: 02-24-2026 C-Peptide C-Peptide Lab Routine Type 2 diabetes mellitus with hyperglycemia, without long-term current use of insulin (HCC) Expected: 02/24/2025 (Approximate), Expires: 02/24/2026 [facility] Comment on above: Expected: 02/24/2025 (Approximate), Expi res: 02/24/2026 Start: 02-24-2025 End: 02-24-2026 Comprehensive metabolic 1998 panel - Serum or Plasma Comprehensive metabolic panel Lab Routine Type 2 diabetes mellitus with hyperglycemia, without long-term current use of insulin (HCC) Expected: 02/24/2025 (Approximate), Expires: 02/24/2026 [employer] Comment on above: Expected: 02/24/2025 (Approximate), Expi res: 02/24/2026 Start: 02-24-2025 End: 02-24-2026 Glucose [Mass/volume] in Serum or Plasma Glucose, random Lab Routine Type 2 diabetes mellitus with hyperglycemia, without long-term current use of insulin (HCC) Expected: 02/24/2025 (Approximate), Expires: 02/24/2026 [facility] Comment on above: Expected: 02/24/2025 (Approximate), Expi res: 02/24/2026 Start: 02-24-2025 End: 02-24-2026 Glutamic acid decarboxylase (Sendout) Glutamic acid decarboxylase (Sendout) Lab Routine Type 2 diabetes mellitus with hyperglycemia, without long-term current use of insulin (HCC) Expected: 02/24/2025 (Approximate), Expires: 02/24/2026 [facility] Comment on above: Expected: 02/24/2025 (Approximate), Expi res: 02/24/2026 Start: 02-24-2025 End: 02-24-2026 IA-2 Antibody IA-2 Antibody Lab Routine Type 2 diabetes mellitus with hyperglycemia, without long-term current use of insulin (HCC) Expected: 02/24/2025 (Approximate), Expires: 02/24/2026 [facility] Comment on above: Expected: 02/24/2025 (Approximate), Expi res: 02/24/2026 Start: 02-24-2025 End: 02-24-2026 Lipid 1996 panel - Serum or Plasma Lipid panel Lab Routine Type 2 diabetes mellitus with hyperglycemia, without long-term current use of insulin (HCC) Expected: 02/24/2025 (Approximate), Expires: 02/24/2026 [facility] Comment on above: Expected: 02/24/2025 (Approximate), Expi res: 02/24/2026 Start: 02-24-2025 End: 02-24-2026 Microalbumin/Creatinine panel in random Urine Microalbumin / creatinine urine ratio Lab Routine Type 2 diabetes mellitus with hyperglycemia, without long-term current use of insulin (HCC) Expected: 02/24/2025 (Approximate), Expires: 02/24/2026 [facility] Comment on above: Expected: 02/24/2025 (Approximate), Expi res: 02/24/2026 Start: 02-24-2025 End: 02-24-2026 Thyrotropin [Units/volume] in Serum or Plasma TSH Lab Routine Type 2 diabetes mellitus with hyperglycemia, without long-term current use of insulin (HCC) Expected: 02/24/2025 (Approximate), Expires: 02/24/2026 [facility] Comment on above: Expected: 02/24/2025 (Approximate), Expi res: 02/24/2026 Start: 02-24-2025 End: 02-24-2026 Thyroxine (T4) free [Mass/volume] in Serum or Plasma T4, free Lab Routine Type 2 diabetes mellitus with hyperglycemia, without long-term current use of insulin (HCC) Expected: 02/24/2025 (Approximate), Expires: 02/24/2026 [facility] Comment on above: Expected: 02/24/2025 (Approximate), Expi res: 02/24/2026 Start: 02-24-2025 End: 02-24-2026 Zinc Transporter 8 Antibody Zinc Transporter 8 Antibody Lab Routine Type 2 diabetes mellitus with hyperglycemia, without long-term current use of insulin (HCC) Expected: 02/24/2025 (Approximate), Expires: 02/24/2026 [facility] Work Phone: Comment on above: Expected: 02/24/2025 (Approximate), Expi res: 02/24/2026 Start: 02-24-2025 End: 02-24-2025 Admission to establishment 02/24/2025 1:30 PM EDT Pre-Admission Testing [facility] Pre-Admit Testing [address] [place] [phone] [facility] Start: 02-24-2025 End: 02-24-2025 Patient encounter procedure 02/24/2025 11:00 AM EDT Office Visit [facility] [address] [place] [phone] Richard Marquez PA-C [address] [place] [phone] [facility] Start: 02-22-2025 End: 02-22-2025 Patient encounter procedure 02/22/2025 2:20 PM EDT Appointment [facility] [address] [facility] [address] [place] [phone] Nadir Leong MD [address] [place] [phone] MD [address] [place] [address] [facility] [address] [facility] Start: 02-07-2025 Patient discharge [facility] Start: 01-19-2025 Evaluation of diagnostic study results [facility] Start: 09-10-2024 Annual PCP Team Chronic Disease Visit Annual PCP Team Chronic Disease Visit [facility] Start: 09-10-2024 BP Controlled (<130/80) BP Controlled (<130/80) [facility] Start: 09-10-2024 Covid-19 Vaccine (#1) Covid-19 Vaccine (#1) [facility] Comment on above: Postponed from 1967 (Declined at t his time) Start: 09-10-2024 Covid-19 Vaccine () Covid-19 Vaccine () [facility] Comment on above: Postponed from 03/14/2023 (Declined at t his time) Start: 09-10-2024 Diabetes: Estimated Glomerular Filtration Rate for Kidney Health Diabetes: Estimated Glomerular Filtration Rate for Kidney Health [facility] Start: 09-10-2024 Diabetes: Urine Albumin-Creatinine Ratio for Kidney Health Diabetes: Urine Albumin-Creatinine Ratio for Kidney Health [facility] Start: 09-10-2024 Diabetic foot examination Diabetic Foot Exam [facility] Start: 09-10-2024 Hemoglobin A1c measurement Diabetes: Hemoglobin A1C [facility] Start: 09-10-2024 Hepatitis B surface antibody level LDL Cholesterol [facility] Start: 09-10-2024 Lipid panel Lipid Panel [facility] Start: 09-10-2024 Shingrix Vaccine (1 of 2) Shingrix Vaccine (1 of 2) [facility] Comment on above: Postponed from 2017 (Insurance Cov erage) Start: 07-13-2024 Behavioral Health Screening Behavioral Health Screening [facility] Comment on above: Postponed from 07/14/2023 (Declined at t his time) Start: 07-13-2024 Depression Assessment Depression Assessment [facility] Comment on above: Postponed from 07/14/2023 (Declined at t his time) Start: 2024 Annual PCP Team Chronic Disease Visit Annual PCP Team Chronic Disease Visit [facility] Start: 2024 BP Controlled (<130/80) BP Controlled (<130/80) [facility] Start: 06-10-2024 Annual PCP Team Chronic Disease Visit Annual PCP Team Chronic Disease Visit [facility] Start: 05-19-2024 DTaP/Tdap/Td Vaccines (2 - Td or Tdap) DTaP/Tdap/Td Vaccines (2 - Td or Tdap) [facility] Start: 05-19-2024 Urine microalbumin profile [facility] Start: 04-13-2024 End: 07-13-2024 ALBUMIN/CREAT RATIO RND UR ALBUMIN/CREAT RATIO RND UR Lab Routine Poorly controlled type 2 diabetes mellitus (HCC) Expected: 04/13/2024, Expires: 07/13/2024 [facility] Work Phone: Comment on above: Expected: 04/13/2024, Expires: 4 Start: 04-13-2024 End: 07-13-2024 Comprehensive metabolic 2000 panel - Serum or Plasma COMP METABOLIC PANEL Lab Routine Poorly controlled type 2 diabetes mellitus (HCC) Expected: 04/13/2024, Expires: 07/13/2024 [facility] Work Phone: Comment on above: Expected: 04/13/2024, Expires: 4 Start: 04-13-2024 End: 07-13-2024 Hemoglobin A1c in Blood HGB A1C Lab Routine Poorly controlled type 2 diabetes mellitus (HCC) Expected: 04/13/2024, Expires: 07/13/2024 [facility] Work Phone: Comment on above: Expected: 04/13/2024, Expires: 4 Start: 04-13-2024 End: 07-13-2024 LIPID PANEL, NONFASTING LIPID PANEL, NONFASTING Lab Routine Poorly controlled type 2 diabetes mellitus (HCC) Expected: 04/13/2024, Expires: 07/13/2024 [facility] Work Phone: Comment on above: Expected: 04/13/2024, Expires: 4 Start: 03-14-2024 COVID-19 Vaccine ( season) COVID-19 Vaccine ( season) [facility] Start: 03-14-2024 Influenza vaccination Influenza Vaccine (Season Ended) [facility] Start: 01-11-2024 Influenza vaccination Influenza Vaccine (#1) [facility] Comment on above: Postponed from 03/14/2023 (Not Currently Available) Start: 12-19-2023 ANNUAL PCP TEAM CHRONIC DISEASE VISIT ANNUAL PCP TEAM CHRONIC DISEASE VISIT [facility] Start: 12-19-2023 Hepatitis B surface antibody level LDL CHOLESTEROL [facility] Start: 12-09-2023 Hemoglobin A1c measurement HbA1C [facility] Start: 10-15-2023 End: 01-14-2024 Glutamate decarboxylase 65 Ab [Units/volume] in Serum [facility] Work Phone: Comment on above: Expected: 10/15/2023, Expires: 4 Start: 10-15-2023 End: 01-14-2024 Pancreatic islet cell Ab [Titer] in Serum [facility] Work Phone: Comment on above: Expected: 10/15/2023, Expires: 4 Start: 09-13-2023 ANNUAL PCP TEAM CHRONIC DISEASE VISIT ANNUAL PCP TEAM CHRONIC DISEASE VISIT [facility] Start: 09-12-2023 Hepatitis B surface antibody level LDL CHOLESTEROL [facility] Start: 08-14-2023 3 comp foot exam completed DIABETIC FOOT EXAM [facility] Start: 08-14-2023 ANNUAL PCP TEAM CHRONIC DISEASE VISIT ANNUAL PCP TEAM CHRONIC DISEASE VISIT [facility] Start: 08-14-2023 SHINGRIX VACCINE (1 of 2) SHINGRIX VACCINE (1 of 2) [facility] Comment on above: Postponed from 2017 (Insurance Cov erage) Start: 03-20-2023 Hemoglobin A1c/Hemoglobin.total in Blood HBA1C [facility] Start: 03-14-2023 Influenza vaccination Influenza Vaccine (#1) [facility] Start: 02-04-2023 Hepatitis B surface antibody level LDL CHOLESTEROL [facility] Start: 01-30-2023 Adult depression screening assessment DEPRESSION SCREENING [facility] Start: 01-30-2023 ANNUAL PCP TEAM CHRONIC DISEASE VISIT ANNUAL PCP TEAM CHRONIC DISEASE VISIT [facility] Start: 01-30-2023 BP CONTROLLED (<130/80) BP CONTROLLED (<130/80) [facility] Start: 01-30-2023 COVID-19 VACCINE (#1) COVID-19 VACCINE (#1) [facility] Comment on above: Postponed from 1967 (Declined at t his time) Start: 12-23-2022 End: 02-22-2023 Basic metabolic 2000 panel - Serum or Plasma BASIC METABOLIC PNL Lab Routine Essential hypertension Expected: 12/23/2022, Expires: 02/22/2023 [facility] Work Phone: Comment on above: Expected: 12/23/2022, Expires: 3 Start: 12-23-2022 End: 02-22-2023 Hemoglobin A1c in Blood HGB A1C Lab Routine Type 2 diabetes mellitus without retinopathy (HCC) Expected: 12/23/2022, Expires: 02/22/2023 [facility] Work Phone: Comment on above: Expected: 12/23/2022, Expires: 3 Start: 12-23-2022 End: 02-22-2023 LIPID PANEL, NONFASTING LIPID PANEL, NONFASTING Lab Routine Mixed hyperlipidemia Expected: 12/23/2022, Expires: 02/22/2023 [facility] Work Phone: Comment on above: Expected: 12/23/2022, Expires: 3 Start: 12-23-2022 End: 02-22-2023 Urinalysis complete panel - Urine URINALYSIS, WITH MICROSCOPIC Lab Routine Essential hypertension Expected: 12/23/2022, Expires: 02/22/2023 [facility] Work Phone: Comment on above: Expected: 12/23/2022, Expires: 3 Start: 12-12-2022 Hemoglobin A1c/Hemoglobin.total in Blood HBA1C [facility] Start: 08-14-2022 End: 10-14-2022 ALBUMIN/CREAT RATIO RND UR ALBUMIN/CREAT RATIO RND UR Lab Routine Type 2 diabetes mellitus without retinopathy (HCC) 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) Type 2 diabetes mellitus with peripheral neuropathy (HCC) Expected: 08/14/2022, Expires: 10/14/2022 [facility] Work Phone: Comment on above: Expected: 08/14/2022, Expires: 3 Start: 08-14-2022 End: 10-14-2022 CBC W Auto Differential panel - Blood CBC + DIFF Lab Routine Type 2 diabetes mellitus without retinopathy (HCC) 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) Type 2 diabetes mellitus with peripheral neuropathy (HCC) Expected: 08/14/2022, Expires: 10/14/2022 [facility] Work Phone: Comment on above: Expected: 08/14/2022, Expires: 3 Start: 08-14-2022 End: 10-14-2022 Comprehensive metabolic 2000 panel - Serum or Plasma COMP METABOLIC PANEL Lab Routine Type 2 diabetes mellitus without retinopathy (HCC) 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) Type 2 diabetes mellitus with peripheral neuropathy (HCC) Mixed hyperlipidemia Essential hypertension Expected: 08/14/2022, Expires: 10/14/2022 [facility] Work Phone: Comment on above: Expected: 08/14/2022, Expires: 3 Start: 08-14-2022 End: 10-14-2022 Hemoglobin A1c in Blood HGB A1C Lab Routine Type 2 diabetes mellitus without retinopathy (HCC) 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) Type 2 diabetes mellitus with peripheral neuropathy (HCC) Expected: 08/14/2022, Expires: 10/14/2022 [facility] Work Phone: Comment on above: Expected: 08/14/2022, Expires: 3 Start: 08-14-2022 End: 10-14-2022 LIPID PANEL, NONFASTING LIPID PANEL, NONFASTING Lab Routine Type 2 diabetes mellitus without retinopathy (HCC) 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) Type 2 diabetes mellitus with peripheral neuropathy (HCC) Mixed hyperlipidemia Essential hypertension Coronary artery disease due to lipid rich plaque Expected: 08/14/2022, Expires: 10/14/2022 [facility] Work Phone: Comment on above: Expected: 08/14/2022, Expires: 3 Start: 08-14-2022 End: 10-14-2022 Prostate specific Ag [Mass/volume] in Serum or Plasma PSA/PROSTSPECAG DIAG Lab Routine Well adult exam Screening for prostate cancer Expected: 08/14/2022, Expires: 10/14/2022 [facility] Work Phone: Comment on above: Expected: 08/14/2022, Expires: Start: 08-14-2022 End: 10-14-2022 Urinalysis complete panel - Urine URINALYSIS, WITH MICROSCOPIC Lab Routine Type 2 diabetes mellitus without retinopathy (HCC) 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) Type 2 diabetes mellitus with peripheral neuropathy (HCC) Mixed hyperlipidemia Essential hypertension Expected: 08/14/2022, Expires: 10/14/2022 [facility] Work Phone: Comment on above: Expected: 08/14/2022, Expires: 3 Start: 08-08-2022 Glaucoma screening Dilated Retinal Exam [facility] Start: 08-08-2022 Hepatitis C antibody, confirmatory test DILATED RETINAL EXAM [facility] Start: 08-02-2022 Hemoglobin A1c/Hemoglobin.total in Blood HBA1C [facility] Start: 07-30-2022 3 comp foot exam completed DIABETIC FOOT EXAM [facility] Start: 07-30-2022 ANNUAL PCP TEAM CHRONIC DISEASE VISIT ANNUAL PCP TEAM CHRONIC DISEASE VISIT [facility] Start: 07-30-2022 Hepatitis B surface antibody level LDL CHOLESTEROL [facility] Start: 07-30-2022 HEPATITIS C SCREENING HEPATITIS C SCREENING [facility] Comment on above: Postponed from 1985 (Declined at t his time) Start: 03-14-2022 Influenza vaccination INFLUENZA (#1) [facility] Start: 03-08-2022 End: 03-08-2023 Estradiol (E2) [Mass/volume] in Serum or Plasma [facility] Work Phone: Comment on above: Expected: 03/08/2022, Expires: 3 Start: 03-08-2022 End: 03-08-2023 Lutropin [Units/volume] in Serum or Plasma [facility] Work Phone: Comment on above: Expected: 03/08/2022, Expires: 3 Start: 03-08-2022 End: 03-08-2023 Prolactin [Mass/volume] in Serum or Plasma [facility] Work Phone: Comment on above: Expected: 03/08/2022, Expires: 3 Start: 03-08-2022 End: 03-08-2023 Testosterone [Mass/volume] in Serum or Plasma [facility] Work Phone: Comment on above: Expected: 03/08/2022, Expires: 3 Start: 10-28-2021 Hemoglobin A1c/Hemoglobin.total in Blood HBA1C [facility] Start: 07-27-2020 BP CONTROLLED (<130/80) BP CONTROLLED (<130/80) [facility] Start: 09-22-2019 Adult depression screening assessment DEPRESSION SCREENING [facility] Start: 2017 SHINGRIX VACCINE (1 of 2) SHINGRIX VACCINE (1 of 2) [facility] Start: 2017 Zoster Vaccines (1 of 2) Zoster Vaccines (1 of 2) [facility] Start: 2012 COLOGUARD (FIT-DNA) COLOGUARD (FIT-DNA) [facility] Start: [address] COLONOGRAPHY [facility] Start: 2012 FECAL OCCULT BLOOD FECAL OCCULT BLOOD [facility] Start: 2012 Screening for malignant neoplasm of colon [facility] Start: 2012 SIGMOIDOSCOPY SIGMOIDOSCOPY [facility] Start: 1986 Hepatitis B Vaccines (1 of 3 - 19+ 3-dose series) Hepatitis B Vaccines (1 of 3 - 19+ 3-dose series) [facility] Start: 1985 Hepatitis C screening Hepatitis C Screening [facility] Start: 1979 Depression Screening Depression Screening [facility] Start: 1977 Diabetic foot examination Diabetes: Foot Exam [facility] Start: 1977 Glaucoma screening Diabetes: Retinopathy Screening [facility] Start: 1977 Preventive dental service Diabetes: Dental Exam [facility] Start: 1972 COVID-19 VACCINE (1) COVID-19 VACCINE (1) [facility] Start: 1968 MMR Vaccines (1 of 1 - Standard series) MMR Vaccines (1 of 1 - Standard series) [facility] Start: 1967 Covid-19 Vaccine (#1) Covid-19 Vaccine (#1) [facility] Start: 1967 HIV screening HIV Screening [facility] Start: 1967 Screening for malignant neoplasm of colon [facility] Anion gap in Serum o r Plasma [facility] Anion gap in Serum o r Plasma [facility] Basic metabolic 2008 panel with ionized calcium - Serum or Plasma [facility] BUN/Creatinine ratio [facility] BUN/Creatinine ratio [facility] Calcium [Mass/volume ] in Serum or Plasma [facility] Calcium [Mass/volume ] in Serum or Plasma [facility] Carbon dioxide, tota l [Moles/volume] in Central venous blood [facility] Carbon dioxide, tota l [Moles/volume] in Central venous blood [facility] Catheterization of l eft heart [facility] CBC W Auto Different ial panel - Blood [facility] Cholesterol [Mass/volume] in Serum or Plasma [facility] Cholesterol in HDL [Mass/volume] in Serum or Plasma [facility] Creatinine [Mass/vol ume] in Serum or Plasma [facility] Creatinine [Mass/vol ume] in Serum or Plasma [facility] End: 12-18-2023 Echocardiography ECHO Cardiology Routine Coronary artery disease due to lipid rich plaque 1 Occurrences starting 12/17/2022 until 12/18/2023 [facility] Work Phone: Comment on above: 1 Occurrences starting 12/17/2022 until 12/18/2023 Erythrocyte mean corpuscular volume determination [facility] Erythrocyte mean corpuscular volume determination [facility] Glucose [Mass/volume ] in Serum or Plasma [facility] Glucose [Mass/volume ] in Serum or Plasma [facility] HB A1C B/O HB A1C B/O Lab R outine Controlled type 2 diabetes mellitus without complication, with long-term current use of insulin (HCC) Ordered: 01/30/2022 [facility] Work Phone: Comment on above: Ordered: 01/30/2022 Hematocrit [Volume Fraction] of Blood [facility] Hematocrit [Volume Fraction] of Blood [facility] Hemoglobin [Mass/vol ume] in Blood [facility] Hemoglobin [Mass/vol ume] in Blood [facility] Hemoglobin A1c/Hemoglobin.total in Blood [facility] INR in Blood by Coagulation assay [facility] Leukocytes [#/volume ] in Blood [facility] Leukocytes [#/volume ] in Blood [facility] Low density lipoprot ein cholesterol measurement [facility] Magnesium measurement [facility] Mean corpuscular hemoglobin concentration determination [facility] Mean corpuscular hemoglobin concentration determination [facility] Mean corpuscular hemoglobin determination [facility] Mean corpuscular hemoglobin determination [facility] Measurement of renal function [facility] Measurement of renal function [facility] Neutrophil count [facility] Neutrophil count [facility] Neutrophil percent differential count [facility] Neutrophil percent differential count [facility] Platelets [#/volume] in Blood [facility] Platelets [#/volume] in Blood [facility] Potassium measurement [facility] Potassium measurement [facility] End: 03-04-2025 Prothrombin time (PT) in Blood by Coagulation assay Protime-INR Lab Routine Once (Lab) for 1 Occurrences starting 03/04/2025 until 03/04/2025 [employer] Work Phone: Comment on above: Once (Lab) for 1 Occurrences starting until 03/04/2025 Red blood cell count [facility] Red blood cell count [facility] Red cell distributio n width determination [facility] Red cell distributio n width determination [facility] Serum chloride measurement [facility] Serum chloride measurement [facility] Sodium measurement [facility] Sodium measurement [facility] Work Phone: Comment on above: Release Upon Ordering for 1 Occurrences starting 03/04/2025, 1 completed Total cholesterol:HD L ratio measurement [facility] Triglycerides measurement [facility] Troponin T.cardiac [Mass/volume] in Serum or Plasma by High sensitivity method [facility] Troponin T.cardiac [Mass/volume] in Serum or Plasma by High sensitivity method [facility] Urea nitrogen [Mass/volume] in Serum or Plasma [facility] Urea nitrogen [Mass/volume] in Serum or Plasma [facility] US Heart [facility] End: 07-12-2024 Us soft tissue head & neck real time imge docm US THYROID/PARATHYROID Radiology Routine Thyroid nodule 1 Occurrences starting 2023 until 07/12/2024 [facility] Work Phone: Comment on above: 1 Occurrences starting 2023 until 07/12/2024 VLDL cholesterol measurement [facility] XR Chest PA and Lateral [facility] Immunizations Immunization Date Immunization Notes Care Provider Fa [facility] 09-10-2023 pneumococcal Conjuga te, unspecified formulation Oswald Quarles MD Work Phone: [facility] Work Phone: 09-10-2023 pneumococcal conjuga te (PCV20) vaccine, 20 valent (PREVNAR 20) Oswald Quarles MD Work Phone: [facility] 08-14-2022 influenza, injectabl e, quadrivalent, contains preservative Oswald Quarles MD Work Phone: [facility] 08-14-2022 influenza virus vacc ine, unspecified formulation Injection Wstr Work Phone: [facility] 07-30-2021 influenza, injectabl e, quadrivalent, contains preservative Debra Praisler-Wood [employer] Work Phone: [facility] 06-07-2020 influenza, injectabl e, quadrivalent, contains preservative Debra Praisler-Wood [employer] Work Phone: [facility] 07-27-2019 influenza, injectabl e, quadrivalent, contains preservative Debra Praisler-Wood [employer] Work Phone: [facility] 09-21-2018 influenza, injectabl e, quadrivalent, contains preservative Debra Praisler-Wood [employer] Work Phone: [facility] 06-19-2016 influenza, injectabl e, quadrivalent, contains preservative Debra Praisler-Wood [employer] Work Phone: [facility] Work Phone: 01-18-2016 pneumococcal polysaccharide vaccine, 23 valent Debra Praisler-[employer] Work Phone: [facility] Work Phone: 05-18-2015 influenza, injectabl e, quadrivalent, contains preservative Debra Praisler-[employer] Work Phone: [facility] Work Phone: 01-17-2015 pneumococcal conjuga te vaccine, 13 valent Debra Praisler-[employer] Work Phone: [facility] Work Phone: 05-19-2014 influenza, seasonal, injectable Debra Praisler-[employer] Work Phone: [facility] Work Phone: 05-19-2014 tetanus toxoid, redu geraldine diphtheria toxoid, and acellular pertussis vaccine, adsorbed Debra Praisler-[employer] Work Phone: [facility] Work Phone: Payers Date Payer Category Payer Self-pay 2024 [employer] are - HMO MMO [employer] [id number] 2023 Unknown [id number] 2022 Unknown [id number] 2022 Unknown [id number] 2019 Unknown [employer] PPO [id number] 2019-Present [phone] [address] [place] [address] PPO [id number] 1967 Unknown [id number] 1967 Unknown [id number] Unknown [id number] Unknown [id number] Unknown [id number] Unknown [id number] Unknown [id number] Unknown [id number] 462 Unknown [id number] Unknown [id number] Unknown [id number] Social History Date Type Detail Facility Start: 02-15-2014 End: 03-17-2025 Tobacco smoking status NHIS Never smoked tobacco [facility] Work Phone: Start: 02-15-2014 End: 03-12-2025 Tobacco use and exposure User of smokeless tobacco [facility] Work Phone: History of tobacco use Chews Tobacco [facility] Work Phone: Start: 10-01-2021 End: 03-15-2025 Alcohol intake Current drinker of alcohol (finding) [facility] Start: 07-30-2021 History SDOH Alcohol Comment on occasion [facility] Start: 07-30-2021 End: 03-08-2022 Tobacco Comment can of chew per day [facility] Start: 1965 Sex Assigned At Not on file [facility] Start: 09-21-2021 End: 03-08-2022 Exposure to SARS-CoV-2 (event) Not sure [facility] Start: 10-28-2022 End: 03-04-2025 History of Social function [facility] Work Phone: Start: 10-28-2022 End: 03-04-2025 Tobacco use panel [facility] Work Phone: Adult Depression Screening Assessment 0 [facility] Work Phone: Start: 07-08-2020 Alcohol Alcohol [facility] Start: 07-08-2020 Lives Lives [facility] Start: 07-08-2020 Tobacco Use Tobacco Use [facility] Start: 1965 Sex Assigned At Male [facility] Start: 02-09-2025 Tobacco use and exposure Smokeless tobacco non-user [facility] Start: 02-07-2025 Sex Male (finding) Maame Lewis alth Within the last year , have you been afraid of your partner or ex-partner? No [facility] History of tobacco use Snuff User [facility] Medical Equipment Procedure Code Equipment Code Equipment Origin al Text Equipment Identifier Dates [id number], [id number], [id number] Start: 08-30-2019 End: 02-24-2026 Comment on above: Test 2 times daily, Insulin Dep? No E11.9 DM 2 Test Two times a day . Insulin Dep? Yes E11.9 DM 2 Functional Status Date Assessment Result Facility 03-17-2025 Functional status Patient Activity [facility] Work Phone: Mental Status Date Assessment Result Facility 03-17-2025 Cognitive function Voice/Name [facility] Work Phone: Clinical Notes 10-01-2021 to 03-15-2025 Hossein Romero APRN - DINAH - 03/15/2025 11:30 AM EDTPatient InstructionsHome Meggan Dalal RN - 03/08/2025 1:05 PM EDTHome Meggan Dalal RN - 03/08/2025 1:05 PM EDT Note Date & Type Note Facility 03-15-2025 History of Present illness Narrative Images from the original note were not included. [facility] Medical Group: [facility] [address] [facility] [address] [facility] [address] Dept: [phone] Dept Loc: [phone] Visit type: Established patient - in person Surgery/Procedure: s/p CABGx3 (MEADE-LAD, SVG-OM2, SVG-diag2), KWAME, LEVH with Dr. Lane on 03/04/25 Reason for Visit: post op follow up Assessment/Plan Diagnosis: MVCAD s/p CABGx3 HTN T2DM HLD Plan: POD#11 Day from Discharge (03/08/25): #7 -Reviewed current meds: complaint No changes made No additional lasix needed Still with post op pain - reorder narcotic -Surgical Incisions: healing appropriately, well approximated, no s/s of infection Left upper groin small hematoma from EVH site - monitor -Physical therapy as outlined in discharge instructions: Not ready for Cardiac Rehab Not ready to drive -Weight restriction measures 1-4 weeks from date of surgery- 10lbs weight restriction: 04/01/25 5-8 weeks from date of surgery- 20lbs weight restriction approximate end date:04/29/25 -Follow up with PCP and Cards (Dr. Enrique) -Plan follow up 3 week virtual visit. Patient to call with any questions or concerns. They verbalized understanding *The patient's OARRS report was obtained and reviewed.* I explained to Wallace Turk that narcotic pain medications have addictive potential and should only be taken for acute post operative surgical pain. I also explained that narcotic/opioid medication should not be taken to help sleep as they are only intended to treat pain. In addition the patient needs to avoid driving or taking other narcotics, anxiolytics or consuming alcohol or using street drugs while they are taking the narcotic because serious side effects including can occur. I discussed the side effects that can occur when taking a narcotic alone including but not limited to: nausea, vomiting, constipation and drowsiness.I told the patient that if they have any reactions to the medication or any percieved problems with the medication, they are to stop the medication and call me. Subjective HPI: 59-year-old male who was seen in the OP setting for CABG evaluation. Patient has history of CAD status post PCI of the LAD in May 2012, hypertension, type 2 diabetes, and hyperlipidemia. Recently saw cardiology January 19, 2025 with complaints of chest discomfort with exertion. An outpatient cath was scheduled and he underwent cardiac cath on 02/07/2025 which demonstrated severe triple-vessel CAD with LV dysfunction. Revascularization was discussed and patient consented he was taken to the operating room on 03/04/[address]. Postoperative course was uncomplicated. Once patient was hemodynamically and medically stable, [facility]. 03/15/25: 59 y.o. male who presents today for post op follow up. Doing well overall. No issues or concerns today. VSS. Meds reviewed; patient still with post op pain; will reorder narcotic with expectation to wean off. No changes to medication, no additional lasix needed at this time. Slight hematoma noted at groin site on left from EVH. MSI healing appropriately with no signs of infection. ROM exercises and weight restrictions discussed. Patient needs follow up with Cards. No other needs at this time. Will plan follow up 3 week virtual unless needed earlier; patient will call with questions or concerns. Objective Vitals: 03/15/25 1129 BP: 130/74 Pulse: 82 Wt Readings from Last 3 Encounters: 03/15/25 205 lb (93 kg) 03/07/25 198 lb 6.6 oz (90 kg) 02/24/25 196 lb 4.8 oz (89 kg) Physical Exam Cardiovascular: Rate and Rhythm: Normal rate and regular rhythm. Heart sounds: Normal heart sounds. No murmur heard. No friction rub. Pulmonary: Effort: Pulmonary effort is normal. Skin: General: Skin is warm and dry. Capillary Refill: Capillary refill takes less than 2 seconds. Findings: Bruising and ecchymosis present. Comments: Surgical Incisions: well approximate; clean dry with no drainage noted. Surrounding skin no redness, warmth, or signs of infection noted. Neurological: Mental Status: He is alert. Psychiatric: Behavior: Behavior is cooperative. Labs/Imaging/Testing: reviewed EMR, see A&P for pertinent diagnostic results related to office visit Disclaimer INFORMED CONSENT:The nature and purpose of the proposed treatment or procedure have been discussed. The risks and benefits of the proposed treatment or procedures have been reviewed. Alternatives have been reviewed in addition to the risks and benefits of not receiving treatments or undergoing procedures. Pursuant to this discussion, the patient agrees to undergo the proposed treatment or procedure. Captured images seen in this note from are not a substitute for a comprehensive interpretation of the entire data set as reflected by the interpreting physician with regard to radiology, echocardiography, and other diagnostic images. This note may have been dictated using [employer] Medical Practice Edition 2.6 and/or [employer] Voice Recognition Feature. The document was proofread, however unrecognized voice recognition director distribution errors may be present. documented in this encounter [facility] 03-15-2025 Instructions TROY Rosales CNP - 03/15/2025 11:30 AM EDT Weight restriction measures 1-4 weeks from date of surgery- 10lbs weight restriction: 9/19/25 5-8 weeks from date of surgery- 20lbs weight restriction approximate end date:04/29/25 documented in this encounter [facility] 03-08-2025 Patient's home Note Discussed Home Care Services available to patient post DC from the hospital. Educated the patient on the services that are provided, objective of home care, and reason for the services. The patient politely refused the home care services. The patient was educated that should any needs arise post DC to follow up with their PCP. The patient was able to verbalize understanding. Home care to sign off. Please re-consult should any other needs arise prior to DC. [facility] 03-08-2025 Miscellaneous Notes Discussed Home Care Services available to patient post DC from the hospital. Educated the patient on the services that are provided, objective of home care, and reason for the services. The patient politely refused the home care services. The patient was educated that should any needs arise post DC to follow up with their PCP. The patient was able to verbalize understanding. Home care to sign off. Please re-consult should any other needs arise prior to DC. Care Management Progress Note Short Medical why still here: Tcc chart review complete, iv lasix, right internal jugular introducer, temp pacer, chest tube, tcc to follow Planned Discharge Disposition: Home or Self Care (tbd) - ANGULO following Barriers/Today we still Wait: Administering IV medications, Clinical stability, Professor In Family Studies recommendations (comment), Symptomatic control Length of Stay (Days): 3 GMLOS: 5.8 Date: 03/04/2025 Location: [facility] OR Name: Wallace Turk, : 1965, Diagnosis Pre-op Diagnosis * Atherosclerotic heart disease of [place] coronary artery with other forms of angina pectoris (HCC) [I25.118] Protuberant xiphoid process Post-op Diagnosis * Atherosclerotic heart disease of [place] coronary artery with other forms of angina pectoris (HCC) [I25.118] Protuberant xiphoid process Procedures CORONARY ARTERY BYPASS GRAFT 20211 - HI CABG W/ARTERIAL GRAFT THREE ARTERIAL GRAFTS ECHOCARDIOGRAM, TRANSESOPHAGEAL 18890 - HI ECHO TRANSESOPHAG R-T 2D W/PRB IMG ACQUISLoretta I&R Xiphoidectomy Surgeons * Jewel Lane - Primary Procedure Summary Anesthesia: General ASA: IV Estimated Blood Loss: 250cc returned via cellsaver Drains: Chest Tube 1 Mediastinal 24 Fr (Active) Function -20 cm H2O 03/04/25 1218 Chest Tube Air Leak No 03/04/25 1218 Drainage Description Sanguineous 03/04/25 1218 Dressing Status Clean, dry & intact 03/04/25 1218 Site Assessment Clean;Dry;Intact 03/04/25 1218 Surrounding Skin Dry;Intact 03/04/25 1218 Output (mL) 30 mL 03/04/25 1218 NG/OG Tube [facility] mouth (Active) Placement Verification Auscultation 03/04/25 1218 External Catheter Length (cm) 60 cm 03/04/25 1218 Site Assessment Clean;Dry;Intact 03/04/25 1218 Status Low intermittent suction 03/04/25 1218 Urethral Catheter Temperature probe;Straight-tip (Active) Catheter Indications Hourly I&Os (Critical Care ONLY) 03/04/25 1218 Site Assessment Clean;Skin intact 03/04/25 1218 Collection Container Standard drainage bag 03/04/25 1218 Securement Method Securing device 03/04/25 1218 Catheter Best Practices Drainage tube clipped to bed;Catheter secured to thigh;Tamper seal intact;Bag below bladder;Drainage bag less than half full;Bag not on floor;Lack of dependent loop in tubing 03/04/25 1218 Catheter Status Draining;Patent 03/04/25 1218 Output (mL) 25 mL 03/04/25 1218 Specimens ID Source Type Tests Collected By Collected At Frozen? Priority Lab ID 1 Other Tissue TISSUE EXAM Jewel Lane MD 03/04/25 1133 Description: XIPHOID Staff: Retail Beauty Specialist: Randall Lamb RN Relief Retail Beauty Specialist: Jennifer Fairchild RN Scrub Person: Romeo Luevano Furniture Repairer: Sasha Moreno RN Indications: Wallace Turk is an 59 y.o. male with a history of exertional chest pain. He saw cardiology and had an abnormal stress test, with left heart catheterization showing significant multivessel coronary disease. CABG was recommended, and after discussion of the risks and benefits of the procedure he and his family agreed to proceed forward with the operation. Procedure in detail: CABG x 3 (MEADE-LAD, SVG-OM 2, SVG-D2) The patient was taken to the operating room, where the patient was intubated and general anesthesia was induced, Abarca inserted, and a central line and arterial line were placed. Preoperative KWAME demonstrated slightly depressed EF at 40% and no significant valvular abnormalities. The patient was prepped and draped in usual sterile fashion. A timeout was performed verifying the correct patient, procedure, and operative plan. Appropriate VTE prophylaxis was administered. Antibiotics were given initially and redosed as appropriate throughout the case. A midline sternotomy was created with a reciprocating saw and hemostasis was achieved. Left lower extremity endoscopic vein harvesting was performed. The left the PDA was an extremely small vessel internal mammary artery was harvested in a skeletonized fashion. The mediastinum was then dissected, the pericardium was opened, and pericardial stay sutures were placed. Heparin was given and the aorta was cannulated in standard fashion. The distal end of the mammary artery was then taken down from the chest wall and prepped in papaverine solution. Venous cannula was inserted in the right atrial appendage. After confirmation of adequate ACT above 480 seconds, the patient was placed on cardiopulmonary bypass with good flows. The aortic root vent/antegrade cardioplegia catheter was inserted, followed by the retrograde cardioplegia catheter. The aortic cross-clamp was then placed while bypass was at low flow, and cold blood antegrade cardioplegia was given followed by retrograde cardioplegia with quick arrest of the heart. Cardioplegia was then redosed every 15-30 minutes throughout the case. A mesh sling was then positioned to support the heart while examining targets and performing distal anastomoses. Distal targets were then examined for bypass. The PDA was extremely small vessel and diffusely calcified, not amenable for grafting. The OM 2 was a moderately large size vessel and saphenous vein was anastomosed to this target with 7-0 Prolene. In a similar fashion, the second diagonal branch was also moderately large vessel and saphenous vein was anastomosed to this target as well with 7-0 Prolene. After the distal anastomoses were created, antegrade cardioplegia was given, and the proximal anastomoses were created on the ascending aorta with 6-0 Prolene. Antegrade cardioplegia was then given, the proximal aorta de-aired, and the anastomoses were found to be hemostatic. The MEADE was then examined and found to have good flow. The LAD target was identified. The MEADE was anastomosed to the LAD in standard fashion using 7-0 Prolene. Of note, I have no true objective evidence of the patency of the grafts due to lack of availability of the Xageekstim flow probe device. Doppler evaluation of the grafts was performed but provided minimal information. The patient was placed in Trendelenburg position, the pump was decreased to low flow, and the cross-clamp was removed. Electrical activity of the heart resumed. Pacing wires were placed (cut or pull). Hemostasis at all anastomoses was checked and found to be adequate. Ventilation was resumed, and the heart was filled. On KWAME examination, heart function was good and there was no residual air. Bypass flows were reduced incrementally, the patient was weaned from cardiopulmonary bypass, and protamine was given without issue. Cannulas were removed sequentially after hemostasis was again confirmed. Chest tubes were placed. The chest was closed with sternal wires, xiphoidectomy was performed in the patient's large protuberant xiphoid, the fascia was closed with a running 0 Vicryl suture, skin was closed with Monocryl suture, surgical glue was applied at the skin level. Sponge, needle, and instrument counts were correct prior to closure of the sternum and a second count was performed at the end of the case to verify. An operative signout was performed with the entire operative staff. The patient was taken to the ICU, intubated, on no pressor or inotropic support, and an additional signout was performed with the CVICU staff upon arrival to the unit. Jewel Lane MD Cardiothoracic Surgeon 03/04/25 12:52 PM Message sent regarding no bacitracin ointment and swish and spit ordered. documented in this encounter [facility] 03-08-2025 History of Present illness Narrative Images from the original note were not included. PHYSICAL THERAPY [facility] Treatment Note Name/MRN: Wallace Turk ([id number]) Date of : 1965 Age: 59 y.o. Room/Bed: T1-123/T1-123 A Discharge Recommendation: Home with assist PRN Equipment Needed: No Prior Level of Function Prior Level of ADL Function: Independent Prior Level of Mobility: Independent; Device: None Prior Level of Transfers: Independent Assessment Pt is at SBA to supervision level for all mobility this session. No LOB noted. He is compliant with sternal precautions. No PT goals met this session. Recommend home with PRN assist at discharge. Subjective Pt is supine in the bed, agrees to PT. present. Pain: 0-10 pain scale: 3/10 Location: chest/incision Medical Precautions: No active isolations Proper PPE donned/doffed in accordance with facility standards. Fall Risk: Khan Fall Risk Score: 35 (Medium Risk) Precautions/Restrictions: Sternal Precautions: No Pushing, No Pulling, No Lifting Greater Than 10 lbs and No lifting greater than 10 lbs. Ok for modified UE precautions using Keep Your Move in the Tube technique Lines/Drains/Airways: tele Overall Cognitive Status: WNL Overall Orientation Status: Oriented x4 Family/Caregiver Present: spouse Objective Bed Mobility Supine to sit: Supervision Sit to supine: Supervision Rolling to right: Supervision HOB Elevated Transfers/Mobility Sit to stand: Supervision Stand to sit: Supervision Ambulation Ambulation 1 Assistive device(s) used: None Assist level: Supervision Distance (ft): 400 ft Quality of gait: No LOB Stairs Stairs 1 Assistive device(s) used: None Assist level: SBA # of steps: 4 Rails: none Additional factors: reciprocal going up, reciprocal going down Plan Continue acute PT per plan of care. Safety/Education Safety Safety Devices in place: All fall risk precautions in place, call light within reach, left in bed, and no alarms engaged upon entry Restraints: No Education Education Given To: patient Education Provided: PT Role, PT Goals, Gait Training, Plan of Care, Precautions, Transfer Training, and Discharge Recommendations Education Method: Verbal Barriers to Learning: None Education Outcome: Verbalized Understanding Outcome Measures AM-PAC AM-PAC Inpatient Mobility Raw Score : 24 AM-PAC Inpatient Mobility Raw Score (No Stairs) : 20 JH-HLM JH-HLM Score: Walked 250 ft or more (i.e. several laps on unit) Goals Patient Stated Goal: To go home. Encounter Problems Encounter Problems (Active) Cardiac Patient will perform bed mobility with modified independence in order to improve independence and prepare for out of bed mobility. (Progressing) Start: 03/05/25 Expected End: 04/02/25 Patient will complete sit to stand transfer with modified independence to none in order to improve safety and prepare for out of bed mobility. (Progressing) Start: 03/05/25 Expected End: 04/02/25 Patient will ambulate 350 feet or ambulate 5 minutes with modified independence with RPE of 14 or lower. (Progressing) Start: 03/05/25 Expected End: 04/02/25 Patient will ascend and descend 3 # stairs with supervision rail for balance only. (Progressing) Start: 03/05/25 Expected End: 04/02/25 Patient will be independent with P&C exercises. (Not Addressed) Start: 03/05/25 Expected End: 04/02/25 Patient will be independent with managing secretions and home walking program. (Progressing) Start: 03/05/25 Expected End: 04/02/25 Therapy Time Individual Co-treatment Time In 1114 Time Out 1129 Minutes 15 Timed Code Treatment Minutes: (GT) Laura Claudio PTA Cosigned by Caty Pearl PT at 03/08/2025 12:27 PM EDT Department of Internal Medicine Division of Endocrinology, Diabetes, & Metabolism Endocrinology Note Patient Name: Wallace Turk : 1965 AGE: 59 y.o. Room/Bed: T1-123/T1-123 A Admission Date: 03/04/2025 Visit Date: 03/08/2025 Reason for Endocrine Consult: post heart Provider/Team Requesting Consult: cts PCP: No primary care provider on file. Outpt Incident Response Consultant: Yes Ellis Marquez ASSESSMENT: Type 2 diabetes with hyperglycemia with long-term insulin use Type 2 diabetes with cardiac complication Overweight Body mass index is 28.94 kg/m . PLAN: Blood glucose readings variable but stable Continue Lantus 18 units every morning Continue Humalog units tid meals Continue Humalog moderate dose sliding scale ICU goal <180 GMF goal <150 POCT BG ACHS Hypoglycemia management per protocol Carb controlled diet ANTICIPATED ENDOCRINE HOME GOING RECOMMENDATIONS: Optimized for Discharge from Endocrine standpoint: yes Home Going Endocrine Rx Recommendations-- Lantus pens current dose 18 units hs Humalog pens current dose Clara pen needles [id number] Dexcom g7 sensors Outpt Follow Up-- 05-27 Richard Marquez TE sent for sooner appt SUBJECTIVE/HPI: CHIEF COMPLAINT: S/p CABGx3 Patient known to endcrine team outpatient for DM2- see prior notes. Recently started on home insulin outpatient. No noted hx of thyroid disease. 8: BGL stable VSS RA Up in bed awake alert Eating well Family in room Will dc today- discussed home going plans- will send for sooner FU with us 03-07: Blood sugar below, variable but stable He is awake alert up in chair VSS RA States that all of his breakfast Denies nausea vomiting abdominal pain No new complaints today No word on discharge as of yet Type of DM: 2 Onset of DM: 2013 Home DM Medication Regimen: dexcom g7, lantus 12, humalog /4-per chart DM control (last A1c/glucose data): Lab Results Component Value Date HGBA1C 11.7 (A) 02/24/2025 Glucose Date/Time Value Ref Range Status 03/08/2025 07:49 AM 188 (H) 70 - 100 mg/dL Final 03/07/2025 10:42 PM 228 (H) 70 - 100 mg/dL Final 03/07/2025 04:54 PM 129 (H) 70 - 100 mg/dL Final 03/07/2025 01:13 PM 260 (H) 70 - 100 mg/dL Final 03/07/2025 07:52 AM 178 (H) 70 - 100 mg/dL Final 03/06/2025 09:02 PM 199 (H) 70 - 100 mg/dL Final Review of Systems ROS negative except for those mentioned in HPI. OBJECTIVE: Vitals: 03/07/25 2200 03/07/25 2300 03/08/25 0002 03/08/25 0641 BP: 133/73 152/81 BP Location: Right arm Right arm Patient Position: Sitting Lying Pulse: 75 69 65 71 Resp: 18 16 Temp: 36.3 C (97.4 F) 36.5 C (97.7 F) TempSrc: Temporal Temporal SpO2: 93% 92% Weight: Height: Physical Exam Vitals and nursing note reviewed. Constitutional: General: He is not in acute distress. Appearance: He is overweight. He is not toxic-appearing. Interventions: He is sedated. He is not intubated. HENT: Mouth/Throat: Mouth: Mucous membranes are moist. Cardiovascular: Rate and Rhythm: Normal rate. Pulmonary: Effort: Pulmonary effort is normal. No respiratory distress. He is not intubated. Abdominal: Tenderness: There is no abdominal tenderness. Musculoskeletal: Cervical back: Normal range of motion. Skin: General: Skin is warm. Comments: Intact incision midline Neurological: Mental Status: He is alert and oriented to person, place, and time. Psychiatric: Mood and Affect: Mood normal. 24 hour intake/output: Intake/Output Summary (Last 24 hours) at 03/08/2025 0847 Last data filed at 03/07/2025 2245 Gross per 24 hour Intake 200 ml Output 1100 ml Net -900 ml Diet: Adult diet Regular; 4 carb choices (60 gm/meal) Medications (as per EMR): HomeMeds: Current Outpatient Medications Medication Instructions Alcohol Swabs pads For daily blood sugar monitoring 4 times daily for Continuous Glucose Monitor failure aspirin 81 mg, Daily atorvastatin (LIPITOR) 40 mg, Daily Blood Glucose Monitoring Suppl (True Metrix Meter) w/Device kit 1 each, Does not apply, 4 times daily, For daily blood sugar monitoring 4 times daily for Continuous Glucose Monitor failure Continuous Glucose Sensor (Dexcom G7 Sensor) misc Replace with a new sensor every 10 days. glucagon 1 mg, SubCUTAneous, Once PRN glucose blood (True Metrix Blood Glucose Test) test strip For daily blood sugar monitoring 4 times daily for Continuous Glucose Monitor failure insulin glargine (LANTUS) 12 Units, SubCUTAneous, Nightly insulin lispro (HUMALOG) 4 Units, SubCUTAneous, 3 times daily before meals insulin pen needle 32G X 4 MM misc 4 times daily Lancets 33G misc 1 each, Does not apply, 4 times daily, For daily blood sugar monitoring 4 times daily for Continuous Glucose Monitor failure metoprolol succinate XL (TOPROL-XL) 50 mg, Daily mupirocin (Bactroban) 2 % ointment Apply liberal amount per nostril the night before surgery and then again the morning of surgery NON FORMULARY STOPPED TAKING PER DR LANE BEFORE SURGERY May peralta, berberine, salon cinnamon, multivitamin- Alive, vitamin d3 w/ k2, Scheduled Meds:Scheduled Meds[1] Continuous Infusions:Continuous Meds[2] PRN Meds:PRN Meds[3] Diagnostic Workup: I reviewed pertinent Laboratory results, Radiographic results, and Other Clinical Notes at the time of today's encounter. Labs: No components found for: LABA1C No components found for: EAG Lab Results Component Value Date NA 140 03/08/2025 K 3.4 (L) 03/08/2025 CL 104 03/08/2025 CO2 30 (H) 03/08/2025 BUN 20 03/08/2025 CREATININE 0.73 03/08/2025 GLUCOSE 194 (H) 03/08/2025 CALCIUM 8.4 03/08/2025 Lab Results Component Value Date CHOL 146 02/25/2025 Lab Results Component Value Date TRIG 99 02/25/2025 Lab Results Component Value Date HDL 45 (A) 02/25/2025 Lab Results Component Value Date LDLCALC 83 02/25/2025 No results found for: VLDL No results found for: CHOLHDLRATIO No results found for: [id number] Lab Results Component Value Date TSH 1.79 02/25/2025 Radiology reportsas per the Radiologist Radiology: POCT glucose meter Result Date: 03/04/2025 Performed by: [facility], [address] [place] [address] CLIA ID: [id number] History/Other: Past Medical History: Medical History[4] Past Surgical History: Surgical History[5] Allergy(ies): Allergies[6] Family History: Family History[7] Social History: Social History[8] Portions of the information within this encounter were entered using an electronic dictation system. Best attempts were made to edit/proofread the information prior to note completion. Despite the review of information, some errors may remain. If there are questions related to the information contained within the note please contact the signing physician directly. I have spent 15 minutes with this patient. [1] acetaminophen, 1,000 mg, Oral, q8h aspirin, 81 mg, Oral, Daily atorvastatin, 80 mg, Oral, Daily chlorhexidine, , Topical, Daily enoxaparin, 40 mg, SubCUTAneous, q24h furosemide, 40 mg, Oral, Daily insulin glargine, 18 Units, SubCUTAneous, q AM insulin lispro, 0-12 Units, SubCUTAneous, TID WC insulin lispro, 8 Units, SubCUTAneous, TID WC Lidocaine, 1 patch, Topical, Daily methocarbamol, 1,000 mg, Oral, 3 times per day metoprolol tartrate, 25 mg, Oral, BID pantoprazole, 40 mg, Oral, qAM AC polyethylene glycol (PEG) 3350, 17 g, Oral, Daily senna-docusate sodium, 2 tablet, Oral, Nightly simethicone, 80 mg, Oral, 4x daily sodium chloride 0.9%, 5-40 mL, IntraCATHeter, q8h [2] [3] PRN medications: calcium gluconate, dextrose, dextrose, glucagon (rDNA), glucose, ipratropium-albuterol, magnesium hydroxide, magnesium sulfate OR magnesium sulfate, naloxone, ondansetron ODT OR ondansetron, oxyCODONE OR [PENDING] oxyCODONE OR oxyCODONE OR [PENDING] oxyCODONE, potassium chloride OR potassium chloride OR potassium chloride, potassium chloride CR, sodium chloride 0.9% [4] Past Medical History: Diagnosis Date Coronary artery disease Diabetes mellitus (HCC) Erectile dysfunction Hyperlipidemia Hypertension Neuropathy LILA (obstructive sleep apnea) non compliant [5] Past Surgical History: Procedure Laterality Date ACHILLES TENDON SURGERY Right COLONOSCOPY CORONARY ANGIOPLASTY 05/2012 CORONARY STENT PLACEMENT x3 [6] No Known Allergies [7] Family History Problem Relation Name Age of Onset Diabetes Mother Coronary artery disease Mother Heart attack Mother Stroke Mother Diabetes Father [8] Social History Tobacco Use Smoking status: Never Smokeless tobacco: Current Types: Chew Vaping Use Vaping status: Never Used Substance Use Topics Alcohol use: Yes Alcohol/week: 2.0 standard drinks of alcohol Types: 2 Cans of beer per week Drug use: Not Currently Cosigned by Tatum Lyles MD at 03/08/2025 3:23 PM EDT Associated attestation - Tatum Lyles MD - 03/08/2025 3:23 PM EDT I independently performed a history and physical examination of the patient. I have reviewed the patient's chart including pertinent history, medications, labs, radiology, consult/progress notes, and other pertinent records. I reviewed the NOELLE's note, agree with the documented findings and plan of care (with modifications noted if any), and discussed the management plan. I have performed a substantive portion of the the medical decision making. Pt doing well. He denies any new complaints. He is ready for discharge to home. BG much improved today. Adult diet Regular; 4 carb choices (60 gm/meal) Estimated Creatinine Clearance: 123.8 mL/min (by C-G formula based on SCr of 0.73 mg/dL). BP 157/82 (BP Location: Right arm, Patient Position: Lying) Pulse 88 Temp 36.5 C (97.7 F) (Temporal) Resp 16 Ht 5' 9.02 (1.753 m) Wt 198 lb 6.6 oz (90 kg) SpO2 95% BMI 29.29 kg/m awake, alert, not in distress, RR, unlabored breathing, no edema, no focal deficits, normal mood and affect. Dx: Type 2 diabetes with hyperglycemia with long-term insulin use Type 2 diabetes with cardiac complication CAD s/p CABG Overweight Body mass index is 29.29 kg/m . Plan: - Will discharge patient home on Lantus 18 units QAM and Humalog 8 units TID - Reviewed insulin regimen - Patient will monitor BG 4 times daily before meals and bedtime - Encouraged to resume CGM --he was agreeable to trying Dexcom G7 again; he has the phone noelle - counseled pt on DM management - carb controlled diet - can consider SGLT-2 and GLP-1 agents in the future - advised to get labs done (c-peptide and T1DM Abs) prior to FU appt Anticipated homegoing regimen: Lantus/Humalog FU with Endocrinology outpatient. Will try to set up a sooner appointment for posthospital follow-up. Total time 25 minutes which include review of records, counseling, management, documentation, and coordination of care as documented in note. Chest tubes assessed: no air leak, subcutaneous air noted. Chest tubes removed without difficulty and dressing applied. Patient tolerated well. Patient and nurse educated on possible complications to observe for. Will continue to monitor. Images from the original note were not included. PHYSICAL THERAPY [facility] Treatment Note Name/MRN: Wallace Turk ([id number]) Date of : 1965 Age: 59 y.o. Room/Bed: T1-123/T1-123 A Discharge Recommendation: Home with assist PRN Equipment Needed: No Prior Level of Function Prior Level of ADL Function: Independent Prior Level of Mobility: Independent; Device: None Prior Level of Transfers: Independent Assessment Pt did well with PT this session. He ambulated around the unit 2 times with SBA to supervision with rollator. Pt should be able to progress to without a device. No PT goals met this session. Recommend home with PRN assist at discharge. Subjective Pt is agreeable to PT. Standing with RN, about to go for a walk. Okay for PT per RN. Pain: 0-10 pain scale: 3/10 Location: chest/incision, chest tube site Medical Precautions: No active isolations Proper PPE donned/doffed in accordance with facility standards. Fall Risk: Khan Fall Risk Score: 60 (High Risk) Precautions/Restrictions: Sternal Precautions: No Pushing, No Pulling, No Lifting Greater Than 10 lbs and No lifting greater than 10 lbs. Ok for modified UE precautions using Keep Your Move in the Tube technique Lines/Drains/Airways: tele, CVC, chest tube Overall Cognitive Status: WNL Overall Orientation Status: Oriented x4 Family/Caregiver Present: none Objective Transfers/Mobility Stand to sit: SBA Ambulation Ambulation 1 Assistive device(s) used: Rollator Assist level: SBA Distance (ft): 350 ft Ambulation 2 Assistive device(s) used: Rollator Assist level: Supervision Distance (ft): 350 ft Quality of gait: No LOB Balance During Session: Static stand at rollator with supervision Exercises Exercises Upper Extremity: P&C exercises 1-9 x 6-8 reps each Comments: I.S. 3103-1491 mL Plan Continue acute PT per plan of care. Safety/Education Safety Safety Devices in place: All fall risk precautions in place, call light within reach, left in chair, nurse notified, and no alarms engaged upon entry Restraints: No Education Education Given To: patient Education Provided: PT Role, PT Goals, Gait Training, Plan of Care, Home Exercise Program, Precautions, Transfer Training, and Discharge Recommendations Education Method: Verbal and Printed Information Barriers to Learning: None Education Outcome: Verbalized Understanding and Continued Education Needed Outcome Measures AM-PAC AM-PAC Inpatient Mobility Raw Score (No Stairs) : 15 JH-HLM JH-HLM Score: Walked 250 ft or more (i.e. several laps on unit) Goals Patient Stated Goal: To go home. Encounter Problems Encounter Problems (Active) Cardiac Patient will perform bed mobility with modified independence in order to improve independence and prepare for out of bed mobility. (Not Addressed) Start: 03/05/25 Expected End: 04/02/25 Patient will complete sit to stand transfer with modified independence to none in order to improve safety and prepare for out of bed mobility. (Progressing) Start: 03/05/25 Expected End: 04/02/25 Patient will ambulate 350 feet or ambulate 5 minutes with modified independence with RPE of 14 or lower. (Progressing) Start: 03/05/25 Expected End: 04/02/25 Patient will ascend and descend 3 # stairs with supervision rail for balance only. (Not Addressed) Start: 03/05/25 Expected End: 04/02/25 Patient will be independent with P&C exercises. (Progressing) Start: 03/05/25 Expected End: 04/02/25 Patient will be independent with managing secretions and home walking program. (Progressing) Start: 03/05/25 Expected End: 04/02/25 Therapy Time Individual Co-treatment Time In 1105 Time Out 1130 Minutes 25 Timed Code Treatment Minutes: (GT, TP) Laura Claudio PTA Cosigned by Josefina Torres PT at 03/07/2025 12:43 PM EDT Department of Internal Medicine Division of Endocrinology, Diabetes, & Metabolism Endocrinology Note Patient Name: Wallace Turk : 1965 AGE: 59 y.o. Room/Bed: T1-123/T1-123 A Admission Date: 03/04/2025 Visit Date: 03/07/2025 Reason for Endocrine Consult: post heart Provider/Team Requesting Consult: cts PCP: No primary care provider on file. Outpt Incident Response Consultant: Yes Ellis Marquez ASSESSMENT: Type 2 diabetes with hyperglycemia with long-term insulin use Type 2 diabetes with cardiac complication Overweight Body mass index is 28.94 kg/m . PLAN: Blood glucose readings variable but stable Continue Lantus 18 units every morning Continue Humalog 6/6/6 units tid meals Continue Humalog moderate dose sliding scale ICU goal <180 GMF goal <150 POCT BG ACHS Hypoglycemia management per protocol Carb controlled diet ANTICIPATED ENDOCRINE HOME GOING RECOMMENDATIONS: Optimized for Discharge from Endocrine standpoint: No Home Going Endocrine Rx Recommendations-- Lantus pens current dose Humalog pens current dose Clara pen needles [id number] Dexcom sensors Outpt Follow Up-- 05-27 Richard Mccartneymiguel SUBJECTIVE/HPI: CHIEF COMPLAINT: S/p CABGx3 Patient known to endcrine team outpatient for DM2- see prior notes. Recently started on home insulin outpatient. No noted hx of thyroid disease. 03-07: Blood sugar below, variable but stable He is awake alert up in chair VSS RA States that all of his breakfast Denies nausea vomiting abdominal pain No new complaints today No word on discharge as of yet Type of DM: 2 Onset of DM: 2013 Home DM Medication Regimen: dexcom g7, lantus 12, humalog /10/15-per chart DM control (last A1c/glucose data): Lab Results Component Value Date HGBA1C 11.7 (A) 02/24/2025 Glucose Date/Time Value Ref Range Status 03/07/2025 07:52 AM 178 (H) 70 - 100 mg/dL Final 03/06/2025 09:02 PM 199 (H) 70 - 100 mg/dL Final 03/06/2025 06:48 PM 230 (H) 70 - 100 mg/dL Final 03/06/2025 01:04 PM 208 (H) 70 - 100 mg/dL Final 03/06/2025 06:33 AM 150 (H) 70 - 100 mg/dL Final 03/05/2025 09:08 PM 197 (H) 70 - 100 mg/dL Final Review of Systems ROS negative except for those mentioned in HPI. OBJECTIVE: Vitals: 03/07/25 0930 03/07/25 0945 03/07/25 1000 03/07/25 1015 BP: 123/69 120/70 129/68 128/68 BP Location: Patient Position: Pulse: 84 83 81 82 Resp: Temp: TempSrc: SpO2: Weight: Height: Physical Exam Vitals and nursing note reviewed. Constitutional: General: He is not in acute distress. Appearance: He is overweight. He is not toxic-appearing. Interventions: He is sedated. He is not intubated. HENT: Mouth/Throat: Mouth: Mucous membranes are moist. Cardiovascular: Rate and Rhythm: Normal rate. Pulmonary: Effort: Pulmonary effort is normal. No respiratory distress. He is not intubated. Abdominal: Tenderness: There is no abdominal tenderness. Musculoskeletal: Cervical back: Normal range of motion. Skin: General: Skin is warm. Comments: Intact incision midline Neurological: Mental Status: He is alert and oriented to person, place, and time. Psychiatric: Mood and Affect: Mood normal. 24 hour intake/output: Intake/Output Summary (Last 24 hours) at 03/07/2025 1050 Last data filed at 03/07/2025 0638 Gross per 24 hour Intake 620 ml Output 890 ml Net -270 ml Diet: Adult diet Regular; 5 carb choices (75 gm/meal) Medications (as per EMR): HomeMeds: Current Outpatient Medications Medication Instructions Alcohol Swabs pads For daily blood sugar monitoring 4 times daily for Continuous Glucose Monitor failure aspirin 81 mg, Daily atorvastatin (LIPITOR) 40 mg, Daily Blood Glucose Monitoring Suppl (True Metrix Meter) w/Device kit 1 each, Does not apply, 4 times daily, For daily blood sugar monitoring 4 times daily for Continuous Glucose Monitor failure Continuous Glucose Sensor (Dexcom G7 Sensor) misc Replace with a new sensor every 10 days. glucagon 1 mg, SubCUTAneous, Once PRN glucose blood (True Metrix Blood Glucose Test) test strip For daily blood sugar monitoring 4 times daily for Continuous Glucose Monitor failure insulin glargine (LANTUS) 12 Units, SubCUTAneous, Nightly insulin lispro (HUMALOG) 4 Units, SubCUTAneous, 3 times daily before meals insulin pen needle 32G X 4 MM misc 4 times daily Lancets 33G misc 1 each, Does not apply, 4 times daily, For daily blood sugar monitoring 4 times daily for Continuous Glucose Monitor failure metoprolol succinate XL (TOPROL-XL) 50 mg, Daily mupirocin (Bactroban) 2 % ointment Apply liberal amount per nostril the night before surgery and then again the morning of surgery NON FORMULARY STOPPED TAKING PER DR LANE BEFORE SURGERY Lions kathryn, berberine, salon cinnamon, multivitamin- Alive, vitamin d3 w/ k2, Scheduled Meds:Scheduled Meds[1] Continuous Infusions:Continuous Meds[2] PRN Meds:PRN Meds[3] Diagnostic Workup: I reviewed pertinent Laboratory results, Radiographic results, and Other Clinical Notes at the time of today's encounter. Labs: No components found for: LABA1C No components found for: EAG Lab Results Component Value Date NA 140 03/07/2025 K 3.6 03/07/2025 CL 107 03/07/2025 CO2 26 03/07/2025 BUN 20 03/07/2025 CREATININE 0.71 (L) 03/07/2025 GLUCOSE 154 (H) 03/07/2025 CALCIUM 8.5 03/07/2025 Lab Results Component Value Date CHOL 146 02/25/2025 Lab Results Component Value Date TRIG 99 02/25/2025 Lab Results Component Value Date HDL 45 (A) 02/25/2025 Lab Results Component Value Date LDLCALC 83 02/25/2025 No results found for: VLDL No results found for: CHOLHDLRATIO No results found for: [id number] Lab Results Component Value Date TSH 1.79 02/25/2025 Radiology reportsas per the Radiologist Radiology: POCT glucose meter Result Date: 03/04/2025 Performed by: [facility], [address] [place] [address] CLIA ID: [id number] History/Other: Past Medical History: Medical History[4] Past Surgical History: Surgical History[5] Allergy(ies): Allergies[6] Family History: Family History[7] Social History: Social History[8] Portions of the information within this encounter were entered using an electronic dictation system. Best attempts were made to edit/proofread the information prior to note completion. Despite the review of information, some errors may remain. If there are questions related to the information contained within the note please contact the signing physician directly. I have spent 15 minutes with this patient. [1] acetaminophen, 1,000 mg, Oral, q8h aspirin, 81 mg, Oral, Daily atorvastatin, 80 mg, Oral, Daily chlorhexidine, , Topical, Daily chlorhexidine, 15 mL, Mouth/Throat, BID enoxaparin, 40 mg, SubCUTAneous, q24h furosemide, 40 mg, IntraVENous, Daily insulin glargine, 18 Units, SubCUTAneous, q AM insulin lispro, 0-12 Units, SubCUTAneous, TID WC insulin lispro, 6 Units, SubCUTAneous, TID WC Lidocaine, 1 patch, Topical, Daily methocarbamol, 1,000 mg, Oral, 3 times per day metoprolol tartrate, 25 mg, Oral, BID mupirocin, , Nasal, BID pantoprazole, 40 mg, Oral, qAM AC polyethylene glycol (PEG) 3350, 17 g, Oral, Daily senna-docusate sodium, 2 tablet, Oral, Nightly simethicone, 80 mg, Oral, 4x daily sodium chloride 0.9%, 5-40 mL, IntraCATHeter, q8h [2] lactated ringers, 250 mL, Last Rate: Stopped (03/04/25 8224) [3] PRN medications: albumin human, calcium gluconate, dextrose, dextrose, glucagon (rDNA), glucose, HYDROmorphone OR HYDROmorphone, ipratropium-albuterol, lactated ringers, magnesium hydroxide, magnesium sulfate OR magnesium sulfate, naloxone, ondansetron ODT OR ondansetron, oxyCODONE OR [PENDING] oxyCODONE OR oxyCODONE OR [PENDING] oxyCODONE, potassium chloride OR potassium chloride OR potassium chloride, potassium chloride CR, sodium chloride 0.9% [4] Past Medical History: Diagnosis Date Coronary artery disease Diabetes mellitus (HCC) Erectile dysfunction Hyperlipidemia Hypertension Neuropathy LILA (obstructive sleep apnea) non compliant [5] Past Surgical History: Procedure Laterality Date ACHILLES TENDON SURGERY Right COLONOSCOPY CORONARY ANGIOPLASTY 05/2012 CORONARY STENT PLACEMENT x3 [6] No Known Allergies [7] Family History Problem Relation Name Age of Onset Diabetes Mother Coronary artery disease Mother Heart attack Mother Stroke Mother Diabetes Father [8] Social History Tobacco Use Smoking status: Never Smokeless tobacco: Current Types: Chew Vaping Use Vaping status: Never Used Substance Use Topics Alcohol use: Yes Alcohol/week: 2.0 standard drinks of alcohol Types: 2 Cans of beer per week Drug use: Not Currently Cosigned by Tatum Lyles MD at 03/07/2025 11:08 PM EDT Associated attestation - Tatum Lyles MD - 03/07/2025 11:08 PM EDT I independently performed a history and physical examination of the patient. I have reviewed the patient's chart including pertinent history, medications, labs, radiology, consult/progress notes, and other pertinent records. I reviewed the NOELLE's note, agree with the documented findings and plan of care (with modifications noted if any), and discussed the management plan. I have performed a substantive portion of the the medical decision making. Pt doing well. He denies any new complaints. Good appetite. He states that he is eating more in the hospital as he was advised to order additional food when he does not order enough carbs. He is currently on Adult diet Regular; 5 carb choices (75 gm/meal) BG upper 100s-200s. He is worried about needing more insulin. Adult diet Regular; 5 carb choices (75 gm/meal) Estimated Creatinine Clearance: 125 mL/min (A) (by C-G formula based on SCr of 0.71 mg/dL (L)). BP 125/71 (BP Location: Left arm, Patient Position: Sitting) Pulse 79 Temp 37 C (98.6 F) (Temporal) Resp 18 Ht 5' 9.02 (1.753 m) Wt 198 lb 6.6 oz (90 kg) SpO2 94% BMI 29.29 kg/m awake, alert, not in distress, RR, chest incision intact, intact pulses, unlabored breathing, no edema, no focal deficits, normal mood and affect. Dx: Type 2 diabetes with hyperglycemia with long-term insulin use Type 2 diabetes with cardiac complication CAD s/p CABG Overweight Body mass index is 29.29 kg/m . Plan: - continue Lantus 18 units QAM - increase Humalog to 8 units TID - discussed insulin regimen - closely monitor BG; adjust doses as necessary - management of hypoglycemia per protocol - counseled pt on DM management - counseled patient regarding importance of adequate glycemic control - carb controlled diet -- will change to 60 g per meal - will resume Dexcom outpt - can consider SGLT-2 and GLP-1 agents in the future - advised to get labs done (c-peptide and T1DM Abs) prior to FU appt Anticipated homegoing regimen: Lantus/Humalog FU with Endocrinology outpatient. Total time 35 minutes which include review of records, counseling, management, documentation, and coordination of care as documented in note. Discussed with Dr. Lane pull wires Patient placed in bed Epicardial pacing wire pulled without difficulty per protocol. Patient and nurse educated on possible complications. Patient tolerated well. Will continue to monitor. Images from the original note were not included. Cardiothoracic Surgery/[facility] Progress Note PATIENT NAME: Wallace Turk DATE: 03/07/25 HPI: 59-year-old male who was seen in the OP setting for CABG evaluation. Patient has history of CAD status post PCI of the LAD in May 2012, hypertension, type 2 diabetes, and hyperlipidemia. Recently saw cardiology January 19, 2025 with complaints of chest discomfort with exertion. An outpatient cath was scheduled and he underwent cardiac cath on 02/07/2025 which demonstrated severe triple-vessel CAD with LV dysfunction. Revascularization was discussed and patient consented he was taken to the operating room on 03/04/[address]. Surgery/Procedure: 03/04/25: s/p CABGx3 (MEADE-LAD, SVG-OM2, SVG-diag2), KWAME, LEVH with Dr. Lane Interval History: 03/07/25, POD# 3: VSS on RA. Up independently walking the unit. No acute issues noted overnight. Tolerating diet, voiding appropriately. No BM yet passing flatus. Review of Systems Constitutional: Negative for diaphoresis, fatigue and fever. Respiratory: Negative for cough, shortness of breath and wheezing. Cardiovascular: Negative for chest pain, palpitations and leg swelling. Gastrointestinal: Negative for abdominal distention, constipation and diarrhea. Skin: Negative for color change, pallor and rash. Objective: CT output cc/24hrs: 260 - 80 for nights UO cc/24hrs: 1775 Vitals: BP: 141/71, MAP (mmHg): 91, BP Method: Automatic Heart Rate: 71 Resp: 18 Temp: 36.7 C (98 F), Temp Source: Temporal BMI (Calculated): 29.29 Pacer Wires: present BMP: Recent Labs 03/04/25 1131 03/04/25 1233 03/05/25 0018 03/06/25 0005 03/07/25 0356 NA 140 < > 137 139 140 K 3.3* < > 3.9 3.9 3.6 CL 112* < > 110* 108* 107 CO2 22 < > 21* 24 26 BUN 18 < > 12 20 20 CREATININE 0.71* < > 0.71* 0.76 0.71* CALCIUM 7.1* < > 8.2* 8.4 8.5 MG 2.5 < > 1.8 2.1 1.9 PHOS 3.4 -- -- -- -- < > = values in this interval not displayed. CBC: Recent Labs 03/05/25 0018 03/06/25 0005 03/07/25 0356 WBC 5.8 6.2 5.5 HGB 10.4* 10.2* 10.3* HCT 31.1* 31.5* 31.5* PLT 119* 115* 130* MCV 86.4 89.0 88.2 RDW 13.4 13.7 13.5 Physical Exam Cardiovascular: Rate and Rhythm: Normal rate and regular rhythm. Heart sounds: Normal heart sounds. No murmur heard. No friction rub. Pulmonary: Effort: Pulmonary effort is normal. Skin: General: Skin is warm and dry. Capillary Refill: Capillary refill takes less than 2 seconds. Findings: Bruising and ecchymosis present. Comments: Surgical Incisions: well approximate; clean dry with no drainage noted. Surrounding skin no redness, warmth, or signs of infection noted. Neurological: Mental Status: He is alert. Psychiatric: Behavior: Behavior is cooperative. Assessment: MVCAD s/p CABGx3 HTN T2DM HLD Post operative Pulm Management: Normal Post-operative Course Post-operative Atrial Fibrillation: []Yes [x] No Acute blood loss anemia/consumptive thrombocytopenia Plan: Patient Status: Progressive Care Medications: ASA, statin, BB - no changes to medications Continue IV lasix-- plan PO lasix likely at d/c GI prophy: PO protonix DVT prophy: Lovenox SubQ Bowel: senna/miralax Interventions: Pulmonary hygiene: IS and [place] Lines/Drains: -CVC: remove today -Chest tubes: remove today Restraints: []Yes [x] No Consults: Endocrinology following- insulin management D/c recs: TBD Therapies: PT: home with assist OT: home with assist Disposition: TBD - likely home tomorrow Tele Status A total of 15 minutes were spent between the [id number] encounter, physical exam, reviewing the medical history, coordinating the patient's care, counseling/educating the patient, ordering medications/test/procedures, interpreting results and documenting clinical information in the patients electronic health record on the day of the encounter. The patient was seen and examined Patient discussed and plan of day developed from multidisciplinary rounds between Cardiothoracic Surgery (Cardiothoracic Surgeon, NOELLE) and Critical Care Attending Cardiac Core Medications: ASA, Statin, and BB EF: KWAME formal read pending Blood Conservation: None noted in post-operative period Hotel Reservation Agent: Dr. Enrique Cosigned by Hector Caban DO at 03/07/2025 7:40 PM EDT Images from the original note were not included. Cardiothoracic Surgery/[facility] Progress Note PATIENT NAME: Wallace Turk DATE: 03/06/25 HPI: 59-year-old male who was seen in the OP setting for CABG evaluation. Patient has history of CAD status post PCI of the LAD in May 2012, hypertension, type 2 diabetes, and hyperlipidemia. Recently saw cardiology January 19, 2025 with complaints of chest discomfort with exertion. An outpatient cath was scheduled and he underwent cardiac cath on 02/07/2025 which demonstrated severe triple-vessel CAD with LV dysfunction. Revascularization was discussed and patient consented he was taken to the operating room on 03/04/[address]. Surgery/Procedure: 03/04/25: s/p CABGx3 (MEADE-LAD, SVG-OM2, SVG-diag2), KWAME, LEVH with Dr. Lane Interval History: 03/06/25, POD# 02. Afebrile, NSR on tele, BP stable, on RA. Pain better controlled today. Walking unit with nursing. No major issues. Objective: CT output cc/24hrs: 130 UO cc/24hrs: 1,025 Vitals: BP: 137/83, MAP (mmHg): 92, BP Method: Automatic Heart Rate: 80 Resp: 16 Temp: 36.1 C (97 F), Temp Source: Temporal BMI (Calculated): 29.78 BMP: Recent Labs 03/04/25 1131 03/04/25 1233 03/04/25 1547 03/05/25 0018 03/06/25 0005 NA 140 < > 138 137 139 K 3.3* < > 4.0 3.9 3.9 CL 112* < > 110* 110* 108* CO2 22 < > 19* 21* 24 BUN 18 < > 15 12 20 CREATININE 0.71* < > 0.67* 0.71* 0.76 CALCIUM 7.1* < > 8.1* 8.2* 8.4 MG 2.5 -- 1.9 1.8 2.1 PHOS 3.4 -- -- -- -- < > = values in this interval not displayed. CBC: Recent Labs 03/04/25 1241 03/05/25 0018 03/06/25 0005 WBC 8.7 5.8 6.2 HGB 11.4* 10.4* 10.2* HCT 33.7* 31.1* 31.5* PLT 114* 119* 115* MCV 86.2 86.4 89.0 RDW 13.4 13.4 13.7 INR: Recent Labs 03/04/25 1131 03/04/25 1241 03/05/25 0018 INR 1.3* 1.2* 1.1 Physical Exam Vitals reviewed. Constitutional: General: He is not in acute distress. Appearance: He is not ill-appearing or diaphoretic. Neck: Comments: Central line. Cardiovascular: Rate and Rhythm: Normal rate and regular rhythm. Pulses: Normal pulses. Heart sounds: No murmur heard. Pulmonary: Effort: Pulmonary effort is normal. Breath sounds: No wheezing, rhonchi or rales. Abdominal: General: There is distension. Palpations: Abdomen is soft. Tenderness: There is no abdominal tenderness. Comments: Chest tubes. Musculoskeletal: General: Swelling present. Skin: General: Skin is warm and dry. Capillary Refill: Capillary refill takes less than 2 seconds. Findings: Bruising present. Comments: Surgical incisions well approximated, no redness, warmth or drainage noted. Neurological: General: No focal deficit present. Mental Status: He is alert. Assessment: MVCAD s/p CABGx3 HTN T2DM HLD Post operative Pulm Management: Normal Post-operative Course Post-operative Atrial Fibrillation: []Yes [x] No Acute blood loss anemia/consumptive thrombocytopenia Plan: Patient status: ICU Continue aspirin and statin. Increase BB today to 25mg BID. Lasix 40mg IV daily. Continue toradol and robaxin. Monitor chest tubes, likely remain in place today. Bowel regimen +simethicone and reglan. Out of bed for meals, progressive mobility. Wean O2 as able, goal SpO2>92%. Daily labs and CXR. GI prophy: PO protonix DVT prophy:TEDs, SCDs, and Lovenox SubQ Pulmonary hygiene: IS and Acapella Consults: Endocrinology. PT/OT: Home with assist PRN (03/05/25) TCC/Discharge Planning: TBD. Central Line: [x]Yes [] No Arterial Line: []Yes [] No [place]: []Yes [x] No Restraints: []Yes [x] No Patient discussed and plan of day developed from multidisciplinary rounds between Cardiothoracic Surgery (Cardiothoracic Surgeon, NOELLE) and Critical Care Attending Critical Care time spent 20 minutes. The time involved in the performance of this care was exclusive of separately billable procedures, teaching time and treating other patients. The time was spent personally by myself for the following activities: examination of the patient, ordering and/or performing treatment, reviewing the laboratory and radiographic studies, and if applicable, ventilator management and blood gas interpretation. Cardiac Core Medications: ASA, Statin, and BB EF: KWAME formal read pending Blood Conservation: None noted in post-operative period Hotel Reservation Agent: Dr. Iva Cosigned by Kobi Guerrero MD at 03/06/2025 1:35 PM EDT Associated attestation - Kobi Guerrero MD - 03/06/2025 1:35 PM EDT I have personally performed a face to face diagnostic evaluation on this patient today on 03/06/25. Labs, imaging studies, and electronic medical record notes on [employer] have been reviewed by me. This note documented and discussed by the []chief supply chain officer []Fellow [x] NOELLE reflects my history, exam and medical decision making. I have reviewed and agree with the care plan. Changes were made in the orders as necessary. ROS documentation was reviewed and negative unless otherwise stated in the HPI. My history, exam, assessment and plan are as follows: Some elements copied from my notes, which have been updated where appropriate. All reflect current medical decision making from 03/06/25. Physical Exam listed was completed in entirely on 03/06/25 and is unchanged except where noted. Pt no longer critical care Time spent for coordination of care: a subsequent visit: 25 minutes (Level I) Chief Complaint: Coronary artery disease of [place] artery of [place] heart with stable angina pectoris Additional pertinent interval history, ROS, and physical exam findings: In chair, resp unlabored +flatus Assessment and Plan: mvCAD 03/04 s/p CABG x 3 Anemia, thrombocytopenia expected post op HTN, HLD DM2 ASA, statin, b-liliana Status: Stable Disposition: Remain in ICU until discharge Department of Internal Medicine Division of Endocrinology, Diabetes, & Metabolism Endocrinology Note Patient Name: Wallace Turk : 1965 AGE: 59 y.o. Room/Bed: [facility] A Admission Date: 03/04/2025 Visit Date: 03/06/2025 Reason for Endocrine Consult: post heart Provider/Team Requesting Consult: cts PCP: No primary care provider on file. Outpt Incident Response Consultant: Campos Marquez ASSESSMENT: Type 2 diabetes with hyperglycemia with long-term insulin use Type 2 diabetes with cardiac complication Overweight Body mass index is 28.94 kg/m . PLAN: Blood glucose readings are reasonable so far Continue Lantus 18 units every morning Continue Humalog 6 units before meals with medium dose correction Obtain a blood glucose readings before meals and at bedtime Carb controlled diet In the future to revisit the option of incretin based therapy and/or SGLT2 I I counseled patient about the rationale of using such medications ICU goal <180 GMF goal <150 POCT BG ACHS-q1 on insulin gtt Hypoglycemia management per protocol Carb controlled diet ANTICIPATED ENDOCRINE HOME GOING RECOMMENDATIONS: Optimized for Discharge from Endocrine standpoint: No Home Going Endocrine Rx Recommendations-- Lantus pens current dose Humalog pens current dose [place] pen needles [id number] Dexcom sensors Outpt Follow Up-- 05-27 Richard Marquez SUBJECTIVE/HPI: CHIEF COMPLAINT: S/p CABGx3 Patient known to endcrine team outpatient for DM2- see prior notes. Recently started on home insulin outpatient. No noted hx of thyroid disease. Interval history 03/06: Denies nausea or vomiting Tolerating most of his diet Interval history 03/05 : Patient was extubated Off pressors He has been on Lantus 12 units daily and Humalog 4 units before meals Has Dexcom G7 Time in range 14% in the last 2 weeks there is improvement in his blood glucose readings last few days before surgery Denies nausea or vomiting Interval events: BGL below Stable currently on insulin gtt VSS, NPO Remains intubated/ sedated at this time Will clarify history once extubated- tomorrow Sees endocrine outpatient - on home insulin pens CT in place On propofol Pressor support as needed Spoke with team Type of DM: 2 Onset of DM: 2013 Home DM Medication Regimen: dexcom g7, lantus 12, humalog 4/4/4-per chart DM control (last A1c/glucose data): Lab Results Component Value Date HGBA1C 11.7 (A) 02/24/2025 Glucose Date/Time Value Ref Range Status 03/06/2025 06:33 AM 150 (H) 70 - 100 mg/dL Final 03/05/2025 09:08 PM 197 (H) 70 - 100 mg/dL Final 03/05/2025 05:00 PM 215 (H) 70 - 100 mg/dL Final 03/05/2025 12:33 PM 152 (H) 70 - 100 mg/dL Final 03/05/2025 11:03 AM 199 (H) 70 - 100 mg/dL Final 03/05/2025 09:09 AM 161 (H) 70 - 100 mg/dL Final Review of Systems ROS negative except for those mentioned in HPI. OBJECTIVE: Vitals: 03/06/25 0700 03/06/25 0800 03/06/25 0900 03/06/25 1000 BP: 142/80 133/78 136/72 137/83 BP Location: Right arm Patient Position: Sitting Pulse: 80 84 79 80 Resp: 16 Temp: 36.1 C (97 F) TempSrc: Temporal SpO2: 95% 92% 93% 96% Weight: Height: Physical Exam Vitals and nursing note reviewed. Constitutional: General: He is not in acute distress. Appearance: He is overweight. He is not toxic-appearing. Interventions: He is sedated. He is not intubated. HENT: Mouth/Throat: Mouth: Mucous membranes are moist. Pulmonary: Effort: Pulmonary effort is normal. No respiratory distress. He is not intubated. Abdominal: Tenderness: There is no guarding. Skin: General: Skin is warm. Comments: Intact incision midline Neurological: Mental Status: He is oriented to person, place, and time. 24 hour intake/output: Intake/Output Summary (Last 24 hours) at 03/06/2025 1213 Last data filed at 03/06/2025 1044 Gross per 24 hour Intake 1920 ml Output 1750 ml Net 170 ml Diet: Adult diet Regular; 5 carb choices (75 gm/meal) Medications (as per EMR): HomeMeds: Current Outpatient Medications Medication Instructions Alcohol Swabs pads For daily blood sugar monitoring 4 times daily for Continuous Glucose Monitor failure aspirin 81 mg, Daily atorvastatin (LIPITOR) 40 mg, Daily Blood Glucose Monitoring Suppl (True Metrix Meter) w/Device kit 1 each, Does not apply, 4 times daily, For daily blood sugar monitoring 4 times daily for Continuous Glucose Monitor failure Continuous Glucose Sensor (Dexcom G7 Sensor) misc Replace with a new sensor every 10 days. glucagon 1 mg, SubCUTAneous, Once PRN glucose blood (True Metrix Blood Glucose Test) test strip For daily blood sugar monitoring 4 times daily for Continuous Glucose Monitor failure insulin glargine (LANTUS) 12 Units, SubCUTAneous, Nightly insulin lispro (HUMALOG) 4 Units, SubCUTAneous, 3 times daily before meals insulin pen needle 32G X 4 MM misc 4 times daily Lancets 33G misc 1 each, Does not apply, 4 times daily, For daily blood sugar monitoring 4 times daily for Continuous Glucose Monitor failure metoprolol succinate XL (TOPROL-XL) 50 mg, Daily mupirocin (Bactroban) 2 % ointment Apply liberal amount per nostril the night before surgery and then again the morning of surgery NON FORMULARY STOPPED TAKING PER DR LANE BEFORE SURGERY Lions kathryn, berberine, salon cinnamon, multivitamin- Alive, vitamin d3 w/ k2, Scheduled Meds:Scheduled Meds[1] Continuous Infusions:Continuous Meds[2] PRN Meds:PRN Meds[3] Diagnostic Workup: I reviewed pertinent Laboratory results, Radiographic results, and Other Clinical Notes at the time of today's encounter. Labs: No components found for: LABA1C No components found for: EAG Lab Results Component Value Date NA 139 03/06/2025 K 3.9 03/06/2025 CL 108 (H) 03/06/2025 CO2 24 03/06/2025 BUN 20 03/06/2025 CREATININE 0.76 03/06/2025 GLUCOSE 173 (H) 03/06/2025 CALCIUM 8.4 03/06/2025 Lab Results Component Value Date CHOL 146 02/25/2025 Lab Results Component Value Date TRIG 99 02/25/2025 Lab Results Component Value Date HDL 45 (A) 02/25/2025 Lab Results Component Value Date LDLCALC 83 02/25/2025 No results found for: VLDL No results found for: CHOLHDLRATIO No results found for: [id number] Lab Results Component Value Date TSH 1.79 02/25/2025 Radiology reportsas per the Radiologist Radiology: POCT glucose meter Result Date: 03/04/2025 Performed by: Maame Rueda [facility], [address] [place], [place] [id number] CLIA ID: [id number] History/Other: Past Medical History: Medical History[4] Past Surgical History: Surgical History[5] Allergy(ies): Allergies[6] Family History: Family History[7] Social History: Social History[8] Portions of the information within this encounter were entered using an electronic dictation system. Best attempts were made to edit/proofread the information prior to note completion. Despite the review of information, some errors may remain. If there are questions related to the information contained within the note please contact the signing physician directly. [1] acetaminophen, 1,000 mg, Oral, q8h aspirin, 81 mg, Oral, Daily atorvastatin, 80 mg, Oral, Daily chlorhexidine, , Topical, Daily chlorhexidine, 15 mL, Mouth/Throat, BID enoxaparin, 40 mg, SubCUTAneous, q24h furosemide, 40 mg, IntraVENous, Daily insulin glargine, 18 Units, SubCUTAneous, q AM insulin lispro, 0-12 Units, SubCUTAneous, TID WC insulin lispro, 6 Units, SubCUTAneous, TID WC ketorolac, 15 mg, IntraVENous, q6h Lidocaine, 1 patch, Topical, Daily methocarbamol, 1,000 mg, Oral, 3 times per day metoprolol tartrate, 25 mg, Oral, BID mupirocin, , Nasal, BID pantoprazole, 40 mg, Oral, qAM AC polyethylene glycol (PEG) 3350, 17 g, Oral, Daily senna-docusate sodium, 2 tablet, Oral, Nightly simethicone, 80 mg, Oral, 4x daily sodium chloride 0.9%, 5-40 mL, IntraCATHeter, q8h [2] lactated ringers, 250 mL, Last Rate: Stopped (03/04/25 0618) [3] PRN medications: albumin human, calcium gluconate, dextrose, dextrose, glucagon (rDNA), glucose, HYDROmorphone OR HYDROmorphone, ipratropium-albuterol, lactated ringers, magnesium hydroxide, magnesium sulfate OR magnesium sulfate, naloxone, ondansetron ODT OR ondansetron, oxyCODONE OR [PENDING] oxyCODONE OR oxyCODONE OR [PENDING] oxyCODONE, potassium chloride OR potassium chloride OR potassium chloride, potassium chloride CR, sodium chloride 0.9% [4] Past Medical History: Diagnosis Date Coronary artery disease Diabetes mellitus (HCC) Erectile dysfunction Hyperlipidemia Hypertension Neuropathy LILA (obstructive sleep apnea) non compliant [5] Past Surgical History: Procedure Laterality Date ACHILLES TENDON SURGERY Right COLONOSCOPY CORONARY ANGIOPLASTY 05/2012 CORONARY STENT PLACEMENT x3 [6] No Known Allergies [7] Family History Problem Relation Name Age of Onset Diabetes Mother Coronary artery disease Mother Heart attack Mother Stroke Mother Diabetes Father [8] Social History Tobacco Use Smoking status: Never Smokeless tobacco: Current Types: Chew Vaping Use Vaping status: Never Used Substance Use Topics Alcohol use: Yes Alcohol/week: 2.0 standard drinks of alcohol Types: 2 Cans of beer per week Drug use: Not Currently Images from the original note were not included. OCCUPATIONAL THERAPY [facility] Initial Evaluation Name/MRN: Wallace Turk ([id number]) Evaluation Date: 03/06/2025 Date of : 1965 Admission Date: 03/04/2025 5:22 AM Age: 59 y.o. Room/Bed: T1-123/T1-123 A Discharge Recommendation: Home with assist PRN Equipment Needed: No Assessment IMPRESSION: Patient is a 59-year-old male hospitalized s/p CABG x 3 on 03/04. Patient is functionally independent with self-care tasks and functional mobility at baseline. Patient is limited by the deficits listed below. Patient is Modified Independent for UB ADLs, Supervision LB ADLs and Supervision toileting. Patient is Supervision for transfers/functional mobility. Recommending Home with Assist PRN upon discharge. Admitting Diagnosis: CAD in [place] artery Performance Deficits /Impairments: Increased Pain Prognosis: Good Decision Making: Low Complexity Subjective Patient is sitting in recliner; patient agreeable to therapy evaluation. RN ok'd for participation. Pain: 0-10 pain scale: 3/10 Location: chest tube Past Medical History: Medical History[1] Past Surgical History: Surgical History[2] Admission Diagnosis: Patient Active Problem List Diagnosis Date Noted CAD in [place] artery 02/28/2025 Medical Precautions: No active isolations Proper PPE donned/doffed in accordance with facility standards. Fall Risk: Khan Fall Risk Score: 60 (High Risk) Precautions/Restrictions: Sternal Precautions: No Pushing, No Pulling, No Lifting Greater Than 10 lbs and No lifting greater than 10 lbs. Ok for modified UE precautions using Keep Your Move in the Tube technique Lines/Drains/Airways: tele, CVC, chest tube Family/Caregiver Present: spouse, child(hans), and granddaughter Overall Cognitive Status: WNL Overall Orientation Status: Oriented x4 Social/Functional History Patient admitted from home. Lives With: Spouse Type of Home: single family home Home Layout: Two Level Home and Able to Live on Main Level Home Access: Stairs to Enter without Rails (# of stairs: 3) Bathroom Shower/Tub: Step over tub Toilet: N/A Home Equipment: none Homemaking Responsibilities: Independent Receives Help From: None Active Cloth Printing Back Tender: Yes Prior Level of Function Prior Level of ADL Function: Independent Prior Level of Mobility: Independent; Device: None Prior Level of Transfers: Independent Objective ADLs LE Dressing: Supervision- donning/doffing socks sitting at EOB using figure four method Upper Extremity Assessment AROM: WFL PROM: Not assessed this session Strength: Not assessed this session. Bed Mobility NT- patient up in recliner pre/post therapy evaluation Transfers/Mobility Sit to stand: Supervision Stand to sit: Supervision Toilet: Supervision Standing balance: Supervision Functional mobility: Supervision Patient is supervision for all transfers and functional mobility. No overt LOB noted. Mild SOBOE. Patient with good carryover of sternal precautions. Device(s) used: None AM-PAC AM-PAC Inpatient Daily Activity Raw Score: 24 ADL Inpatient CMS G-Code Modifier: CH Plan No skilled acute OT indicated at this time. Please reconsult should changes occur. Safety/Education Safety Safety Devices in place: All fall risk precautions in place, call light within reach, left in chair, and nurse notified Restraints: No Education Education Given To: patient Education Provided: OT Role, Plan of Care, Precautions, and Discharge Recommendations Education Method: Verbal Barriers to Learning: None Education Outcome: Verbalized Understanding Goals Patient Stated Goal: to go home Therapy Time Individual Co-Treatment Co-Evaluation Time In 1156 Time Out 1210 Minutes 14 Petrona Galloway OT Patient's Occupational Therapy Plan of Care supervision is transferred to a [facility] Therapy Services Occupational Therapist. Goals and/or treatment plan was established in collaboration with patient/family/other representatives. [1] Past Medical History: Diagnosis Date Coronary artery disease Diabetes mellitus (HCC) Erectile dysfunction Hyperlipidemia Hypertension Neuropathy LILA (obstructive sleep apnea) non compliant [2] Past Surgical History: Procedure Laterality Date ACHILLES TENDON SURGERY Right COLONOSCOPY CORONARY ANGIOPLASTY 05/2012 CORONARY STENT PLACEMENT x3 Images from the original note were not included. PHYSICAL THERAPY [facility] Initial Evaluation Name/MRN: Wallace Turk ([id number]) Evaluation Date: 03/05/2025 Date of : 1965 Admission Date: 03/04/2025 5:22 AM Age: 59 y.o. Room/Bed: [facility] A Discharge Recommendation: Home with assist PRN Equipment Needed: No Assessment IMPRESSION: Pt admitted with mvCAD, s/p CABG x 3. Pt presents with post op generalized weakness and pain limiting his mobility at this time. Pt ambulated functional distance with Nezzie. Reported difficulty taking deep breaths due to pain from incision site. Mobility should improve as pain is controlled. Anticipate discharge to home with assist as needed. Admitting Diagnosis: mvCAD, s/p CABG x 3 03/04 Prognosis: fair Performance Deficits /Impairments: Increased Pain, Decreased Functional Mobility, Decreased ADL status, Decreased Strength, Decreased Endurance, and Decreased Balance Decision Making: Medium Complexity Subjective Pt in chair. Agree with PT treatment. RN cleared for PT. Pain: Day-Stephenson Pain Ratin = Hurts even more Pain Location: sternum and chest tube site Past Medical History: Medical History[1] Past Surgical History: Surgical History[2] Admission Diagnosis: Patient Active Problem List Diagnosis Date Noted CAD in [place] artery 02/28/2025 Medical Precautions: No active isolations Proper PPE donned/doffed in accordance with facility standards. Fall Risk: Khan Fall Risk Score: 60 (High Risk) Precautions/Restrictions: Sternal Precautions: No Pushing, No Pulling, No Lifting Greater Than 10 lbs and No lifting greater than 10 lbs. Ok for modified UE precautions using Keep Your Move in the Tube technique Lines/Drains/Airways: tele, CVC, chest tube Family/Caregiver Present: spouse Overall Cognitive Status: WNL Overall Orientation Status: Oriented x4 Vision: Not Assessed Hearing: normal Social/Functional History Patient admitted from home. Lives With: Spouse Type of Home: single family home Home Layout: Two Level Home and Able to Live on Main Level Home Access: Stairs to Enter without Rails (# of stairs: 3) Bathroom Shower/Tub: Toilet: N/A Home Equipment: none Homemaking Responsibilities: Independent Receives Help From: None Active Cloth Printing Back Tender: Yes Prior Level of Function Prior Level of ADL Function: Independent Prior Level of Mobility: Independent; Device: None Prior Level of Transfers: Independent Objective Lower Extremity Assessment AROM: WFL PROM: WFL Strength: Lower Extremity Strength Right Left Hip Flexion 4 4 Hip Abduction Hip Extension Hip External Rotation (ER) Hip Internal Rotation (IR) Knee Extension 5 5 Knee Flexion Ankle Dorsiflexion (DF) Ankle Plantarflexion (PF) 3+ 3+ Inversion Eversion Sensation: WNL Balance: Balance During Session: Posture: fair Sitting - Static: Supervision Sitting - Dynamic: Supervision Standing - Static: SBA Standing - Dynamic: SBA Bed Mobility: Pt up in chair upon arrival Transfers Sit to stand: Min Assist Stand to sit: Min Assist Stand pivot: Contact Guard Ambulation Ambulation 1 Assistive device(s) used: Nezzie Assist level: Min Assist Distance (ft): 30 Quality of gait: uneven step length, slow gina Ambulation 2 Assistive device(s) used: Nezzie Assist level: Contact Guard Distance (ft): 100 Quality of gait: uneven step length, slow gina Standing, weight shifting for pre-gait, breathing ex. IS x 2 P&C ex 1-4, 10 reps. Rest between. Outcome Measures AM-PAC How much HELP from another person do you currently need Turning from your back to your side while in a flat bed without using bedrails?: A Lot Moving from lying on your back to sitting on the side of a flat bed without using bedrails?: A Lot Moving to and from a bed to a chair (including a wheelchair)?: A Little Standing up from a chair using your arms (wheelchair or bedside chair)?: A Little Walking in a hospital room?: A Little Stair climbing assessed?: No AM-PAC Inpatient Mobility Raw Score (No Stairs) : 13 JH-HLM -HLM Score: Walked 25 ft or more (i.e. walked outside of room) Plan Pt would benefit from skilled acute PT services to address Strengthening, Gait Training, Balance Training, Functional Mobility Training, Endurance Training, and Stair Training. Frequency: 5x/weekfor 4 weeks Barriers: Pain, Impaired balance, and Decreased endurance Safety/Education Safety Safety Devices in place: call light within reach, left in chair, nurse notified, no alarms engaged upon entry, and spouse at bed side Restraints: No Education Education Given To: patient Education Provided: PT Role, PT Goals, and Plan of Care Education Method: Verbal Barriers to Learning: Education Outcome: Verbalized Understanding and Continued Education Needed Goals Patient Stated Goal: To go home. Encounter Problems Encounter Problems (Active) Cardiac Patient will perform bed mobility with modified independence in order to improve independence and prepare for out of bed mobility. Start: 03/05/25 Expected End: 04/02/25 Patient will complete sit to stand transfer with modified independence to none in order to improve safety and prepare for out of bed mobility. Start: 03/05/25 Expected End: 04/02/25 Patient will ambulate 350 feet or ambulate 5 minutes with modified independence with RPE of 14 or lower. Start: 03/05/25 Expected End: 04/02/25 Patient will ascend and descend 3 # stairs with supervision rail for balance only. Start: 03/05/25 Expected End: 04/02/25 Patient will be independent with P&C exercises. Start: 03/05/25 Expected End: 04/02/25 Patient will be independent with managing secretions and home walking program. Start: 03/05/25 Expected End: 04/02/25 Therapy Time Individual Co-Treatment Co-Evaluation Time In 1236 Time Out 1259 Minutes 23 Timed Code Treatment Minutes: 8 Minutes (FA) Caty Pearl PT Patient's Physical Therapy Plan of Care supervision is transferred to a [facility] Therapy Services Physical Therapist. Goals and/or treatment plan was established in collaboration with patient/family/other representatives. [1] Past Medical History: Diagnosis Date Coronary artery disease Diabetes mellitus (HCC) Erectile dysfunction Hyperlipidemia Hypertension Neuropathy LILA (obstructive sleep apnea) non compliant [2] Past Surgical History: Procedure Laterality Date ACHILLES TENDON SURGERY Right COLONOSCOPY CORONARY ANGIOPLASTY 05/2012 CORONARY STENT PLACEMENT x3 Department of Internal Medicine Division of Endocrinology, Diabetes, & Metabolism Endocrinology Note Patient Name: Wallace Turk : 1965 AGE: 59 y.o. Room/Bed: T1-123/T1-123 A Admission Date: 03/04/2025 Visit Date: 03/05/2025 Reason for Endocrine Consult: post heart Provider/Team Requesting Consult: cts PCP: No primary care provider on file. Outpt Incident Response Consultant: Campos Marquez ASSESSMENT: Type 2 diabetes with hyperglycemia with long-term insulin use Type 2 diabetes with cardiac complication Overweight Body mass index is 28.94 kg/m . PLAN: Requirements 1.5 to 2 units/h Recommend to give Lantus 18 units and discontinue insulin drip after 1 hr Then start Lantus 18 units every morning Start Humalog 6 units before meals with medium dose correction Obtain a blood glucose readings before meals and at bedtime Carb controlled diet In the future to revisit the option of incretin based therapy and/or SGLT2 I Discussed with nurse at bedside ICU goal <180 GMF goal <150 POCT BG ACHS-q1 on insulin gtt Hypoglycemia management per protocol Carb controlled diet ANTICIPATED ENDOCRINE HOME GOING RECOMMENDATIONS: Optimized for Discharge from Endocrine standpoint: No Home Going Endocrine Rx Recommendations-- Lantus pens current dose Humalog pens current dose Clara pen needles [id number] Dexcom sensors Outpt Follow Up-- 05-27 Richard Marquez SUBJECTIVE/HPI: CHIEF COMPLAINT: S/p CABGx3 Patient known to endcrine team outpatient for DM2- see prior notes. Recently started on home insulin outpatient. No noted hx of thyroid disease. Interval history 03/05 : Patient was extubated Off pressors He has been on Lantus 12 units daily and Humalog 4 units before meals Has Dexcom G7 Time in range 14% in the last 2 weeks there is improvement in his blood glucose readings last few days before surgery Denies nausea or vomiting Interval events: BGL below Stable currently on insulin gtt VSS, NPO Remains intubated/ sedated at this time Will clarify history once extubated- tomorrow Sees endocrine outpatient - on home insulin pens CT in place On propofol Pressor support as needed Spoke with team Type of DM: 2 Onset of DM: 2013 Home DM Medication Regimen: dexcom g7, lantus 12, humalog -per chart DM control (last A1c/glucose data): Lab Results Component Value Date HGBA1C 11.7 (A) 02/24/2025 Glucose Date/Time Value Ref Range Status 03/05/2025 09:09 AM 161 (H) 70 - 100 mg/dL Final 03/05/2025 08:04 AM 146 (H) 70 - 100 mg/dL Final 03/05/2025 07:07 AM 139 (H) 70 - 100 mg/dL Final 03/05/2025 05:59 AM 130 (H) 70 - 100 mg/dL Final 03/05/2025 05:15 AM 124 (H) 70 - 100 mg/dL Final 03/05/2025 04:17 AM 116 (H) 70 - 100 mg/dL Final Review of Systems ROS negative except for those mentioned in HPI. OBJECTIVE: Vitals: 03/05/25 0707 03/05/25 0800 03/05/25 0900 03/05/25 1000 BP: 112/66 Pulse: 83 78 82 88 Resp: 24 22 Temp: 36.6 C (97.8 F) TempSrc: Temporal SpO2: 95% 95% 94% 94% Weight: Height: Physical Exam Vitals and nursing note reviewed. Constitutional: General: He is not in acute distress. Appearance: He is overweight. He is not toxic-appearing. Interventions: He is sedated. He is not intubated. HENT: Mouth/Throat: Mouth: Mucous membranes are moist. Pulmonary: Effort: Pulmonary effort is normal. No respiratory distress. He is not intubated. Abdominal: Tenderness: There is no guarding. Skin: General: Skin is warm. Comments: Intact incision midline Neurological: Mental Status: He is oriented to person, place, and time. 24 hour intake/output: Intake/Output Summary (Last 24 hours) at 03/05/2025 1029 Last data filed at 03/05/2025 0937 Gross per 24 hour Intake 4746 ml Output 3195 ml Net 1551 ml Diet: Adult diet Regular; 5 carb choices (75 gm/meal) Medications (as per EMR): HomeMeds: Current Outpatient Medications Medication Instructions Alcohol Swabs pads For daily blood sugar monitoring 4 times daily for Continuous Glucose Monitor failure aspirin 81 mg, Daily atorvastatin (LIPITOR) 40 mg, Daily Blood Glucose Monitoring Suppl (True Metrix Meter) w/Device kit 1 each, Does not apply, 4 times daily, For daily blood sugar monitoring 4 times daily for Continuous Glucose Monitor failure Continuous Glucose Sensor (Dexcom G7 Sensor) misc Replace with a new sensor every 10 days. glucagon 1 mg, SubCUTAneous, Once PRN glucose blood (True Metrix Blood Glucose Test) test strip For daily blood sugar monitoring 4 times daily for Continuous Glucose Monitor failure insulin glargine (LANTUS) 12 Units, SubCUTAneous, Nightly insulin lispro (HUMALOG) 4 Units, SubCUTAneous, 3 times daily before meals insulin pen needle 32G X 4 MM misc 4 times daily Lancets 33G misc 1 each, Does not apply, 4 times daily, For daily blood sugar monitoring 4 times daily for Continuous Glucose Monitor failure metoprolol succinate XL (TOPROL-XL) 50 mg, Daily mupirocin (Bactroban) 2 % ointment Apply liberal amount per nostril the night before surgery and then again the morning of surgery NON FORMULARY STOPPED TAKING PER DR LANE BEFORE SURGERY May peralta, berberine, salon cinnamon, multivitamin- Alive, vitamin d3 w/ k2, Scheduled Meds:Scheduled Meds[1] Continuous Infusions:Continuous Meds[2] PRN Meds:PRN Meds[3] Diagnostic Workup: I reviewed pertinent Laboratory results, Radiographic results, and Other Clinical Notes at the time of today's encounter. Labs: No components found for: LABA1C No components found for: EAG Lab Results Component Value Date NA 137 03/05/2025 K 3.9 03/05/2025 CL 110 (H) 03/05/2025 CO2 21 (L) 03/05/2025 BUN 12 03/05/2025 CREATININE 0.71 (L) 03/05/2025 GLUCOSE 112 (H) 03/05/2025 CALCIUM 8.2 (L) 03/05/2025 Lab Results Component Value Date CHOL 146 02/25/2025 Lab Results Component Value Date TRIG 99 02/25/2025 Lab Results Component Value Date HDL 45 (A) 02/25/2025 Lab Results Component Value Date LDLCALC 83 02/25/2025 No results found for: VLDL No results found for: CHOLHDLRATIO No results found for: [id number] Lab Results Component Value Date TSH 1.79 02/25/2025 Radiology reportsas per the Radiologist Radiology: POCT glucose meter Result Date: 03/04/2025 Performed by: [facility], [address] [place] [address] CLIA ID: [id number] History/Other: Past Medical History: Medical History[4] Past Surgical History: Surgical History[5] Allergy(ies): Allergies[6] Family History: Family History[7] Social History: Social History[8] Portions of the information within this encounter were entered using an electronic dictation system. Best attempts were made to edit/proofread the information prior to note completion. Despite the review of information, some errors may remain. If there are questions related to the information contained within the note please contact the signing physician directly. I spent 50 minutes with the pt which involved coordination of care, medical evaluation, review of records, and/or counseling of the pt regarding his/her condition/disease state/prognosis on the date of this note. [1] acetaminophen, 1,000 mg, Oral, q8h aspirin, 81 mg, Oral, Daily atorvastatin, 80 mg, Oral, Daily ceFAZolin, 2,000 mg, IntraVENous, q8h chlorhexidine, , Topical, Daily chlorhexidine, 15 mL, Mouth/Throat, BID Lidocaine, 1 patch, Topical, Daily metoprolol tartrate, 12.5 mg, Oral, BID mupirocin, , Nasal, BID pantoprazole, 40 mg, IntraVENous, Daily polyethylene glycol (PEG) 3350, 17 g, Oral, Daily senna-docusate sodium, 2 tablet, Oral, Nightly simethicone, 80 mg, Oral, 4x daily sodium chloride 0.9%, 5-40 mL, IntraCATHeter, q8h [2] insulin regular, 0.5-50 Units/hr, Last Rate: 2 Units/hr (03/05/25 0909) lactated ringers, 250 mL, Last Rate: Stopped (03/04/25 2349) sodium chloride, 20 mL/hr, Last Rate: 20 mL/hr (03/04/25 1230) sodium chloride, 50 mL/hr, Last Rate: Stopped (03/04/25 1158) [3] PRN medications: albumin human, calcium gluconate, dextrose, dextrose, glucagon (rDNA), glucose, HYDROmorphone, ipratropium-albuterol, lactated ringers, magnesium hydroxide, magnesium sulfate OR magnesium sulfate, naloxone, ondansetron ODT OR ondansetron, oxyCODONE OR [PENDING] oxyCODONE OR oxyCODONE OR [PENDING] oxyCODONE, potassium chloride OR potassium chloride OR potassium chloride, potassium chloride CR, sodium chloride 0.9% [4] Past Medical History: Diagnosis Date Coronary artery disease Diabetes mellitus (HCC) Erectile dysfunction Hyperlipidemia Hypertension Neuropathy LILA (obstructive sleep apnea) non compliant [5] Past Surgical History: Procedure Laterality Date ACHILLES TENDON SURGERY Right COLONOSCOPY CORONARY ANGIOPLASTY 05/2012 CORONARY STENT PLACEMENT x3 [6] No Known Allergies [7] Family History Problem Relation Name Age of Onset Diabetes Mother Coronary artery disease Mother Heart attack Mother Stroke Mother Diabetes Father [8] Social History Tobacco Use Smoking status: Never Smokeless tobacco: Current Types: Chew Vaping Use Vaping status: Never Used Substance Use Topics Alcohol use: Yes Alcohol/week: 2.0 standard drinks of alcohol Types: 2 Cans of beer per week Drug use: Not Currently Images from the original note were not included. Cardiothoracic Surgery/[facility] Progress Note PATIENT NAME: Wallace Turk DATE: 03/05/25 HPI: 59-year-old male who was seen in the OP setting for CABG evaluation. Patient has history of CAD status post PCI of the LAD in May 2012, hypertension, type 2 diabetes, and hyperlipidemia. Recently saw cardiology January 19, 2025 with complaints of chest discomfort with exertion. An outpatient cath was scheduled and he underwent cardiac cath on 02/07/2025 which demonstrated severe triple-vessel CAD with LV dysfunction. Revascularization was discussed and patient consented he was taken to the operating room on 03/04/[address]. Surgery/Procedure: 03/04/25: s/p CABGx3 (MEADE-LAD, SVG-OM2, SVG-diag2), KWAME, LEVH with Dr. Laen Interval History: 03/05/25, POD# 01: Afebrile, NSR on tele, extubated post-op and now on 2L NC. On nitroglycerin for BP control for most of the night. 75g albumin, 1L LR given. Up in chair this AM, pain tolerable. No nausea, belching. Current IV Drips: Nitroglycerin- off Objective: CT output cc/24hrs: 680 UO cc/24hrs: 1,985 Vitals: BP: (!) 141/85, , BP Method: Arterial line Heart Rate: 88 Resp: 19 Temp: 37.8 C (100 F), Temp Source: Bladder BMI (Calculated): 28.93 BMP: Recent Labs 03/04/25 1131 03/04/25 1233 03/04/25 1547 03/05/25 0018 NA 140 141 138 137 K 3.3* 3.1* 4.0 3.9 CL 112* 113* 110* 110* CO2 22 22 19* 21* BUN 18 17 15 12 CREATININE 0.71* 0.72 0.67* 0.71* CALCIUM 7.1* 7.4* 8.1* 8.2* MG 2.5 -- 1.9 1.8 PHOS 3.4 -- -- -- CBC: Recent Labs 03/04/25 1131 03/04/25 1233 03/04/25 1241 03/05/25 0018 WBC 6.3 -- 8.7 5.8 HGB 10.1 9.9* 11.3 11.6 11.4* 10.4* HCT 29.6* -- 33.7* 31.1* PLT 106* -- 114* 119* MCV 87.3 -- 86.2 86.4 RDW 13.2 -- 13.4 13.4 INR: Recent Labs 03/04/25 1131 03/04/25 1241 03/05/25 0018 INR 1.3* 1.2* 1.1 Physical Exam Vitals reviewed. Constitutional: General: He is not in acute distress. Appearance: He is not ill-appearing or diaphoretic. Neck: Comments: Central line. Cardiovascular: Rate and Rhythm: Normal rate and regular rhythm. Pulses: Normal pulses. Heart sounds: No murmur heard. Pulmonary: Effort: Pulmonary effort is normal. Breath sounds: No wheezing, rhonchi or rales. Comments: On NC. Abdominal: General: There is distension. Palpations: Abdomen is soft. Tenderness: There is no abdominal tenderness. Comments: Chest tubes. Genitourinary: Comments: [place]. Musculoskeletal: General: Swelling present. Skin: General: Skin is warm and dry. Capillary Refill: Capillary refill takes less than 2 seconds. Findings: Bruising present. Comments: Surgical incisions well approximated, no redness, warmth or drainage noted. Neurological: General: No focal deficit present. Mental Status: He is alert. Assessment: MVCAD s/p CABGx3 HTN T2DM HLD Post operative Pulm Management: Normal Post-operative Course Post-operative Atrial Fibrillation: []Yes [x] No Acute blood loss anemia/consumptive thrombocytopenia Plan: Patient status: ICU Start aspirin, statin and low dose BB. -Increase BB as HR/BP tolerates. Remove arterial line. Okay for diet, monitor for nausea and abdominal pain. Bowel regimen +simethicone and reglan. Toradol 15mg IV q6h for 24 hours. Lasix 20mg IV x1. Out of bed for meals, progressive mobility. Remove abarca. Wean O2 as able, goal SpO2>92%. Daily labs and CXR. GI prophy: PO protonix DVT prophy:TEDs, SCDs, and Lovenox SubQ Pulmonary hygiene: IS and [place] Consults: Endocrinology. PT/OT: Will need assessed. TCC/Discharge Planning: TBD. Central Line: [x]Yes [] No Arterial Line: [x]Yes [] No [place]: [x]Yes [] No Restraints: []Yes [x] No Patient discussed and plan of day developed from multidisciplinary rounds between Cardiothoracic Surgery (Cardiothoracic Surgeon, NOELLE) and Critical Care Attending Critical Care time spent 20 minutes. The time involved in the performance of this care was exclusive of separately billable procedures, teaching time and treating other patients. The time was spent personally by myself for the following activities: examination of the patient, ordering and/or performing treatment, reviewing the laboratory and radiographic studies, and if applicable, ventilator management and blood gas interpretation. Cardiac Core Medications: ASA, Statin, and BB EF: KWAME formal read pending Blood Conservation: None noted in post-operative period Hotel Reservation Agent: Dr. Enrique Cosigned by Kobi Guerrero MD at 03/05/2025 12:07 PM EDT Associated attestation - Kobi Guerrero MD - 03/05/2025 12:07 PM EDT I have personally performed a face to face diagnostic evaluation on this patient today on 03/05/25. Labs, imaging studies, and electronic medical record notes on [employer] have been reviewed by me. This note documented and discussed by the []chief supply chain officer []Fellow [x] NOELLE reflects my history, exam and medical decision making. I have reviewed and agree with the care plan. Changes were made in the orders as necessary. ROS documentation was reviewed and negative unless otherwise stated in the HPI. My history, exam, assessment and plan are as follows: Some elements copied from my notes, which have been updated where appropriate. All reflect current medical decision making from 03/05/25. Physical Exam listed was completed in entirely on 03/05/25 and is unchanged except where noted. Pt no longer critical care Time spent for coordination of care: a subsequent visit: 25 minutes (Level I) Chief Complaint: Coronary artery disease of [place] artery of [place] heart with stable angina pectoris Additional pertinent interval history, ROS, and physical exam findings: In chair, on room air Heart RRR Resp clear anteriorly, unlabored Assessment and Plan: mvCAD 03/04 s/p CABG x 3 Anemia, thrombocytopenia expected post op HTN, HLD DM2 ASA, statin, b-liliana Lasix diuresis as tolerated D/c arterial line Status: Guarded Disposition: Remain in ICU until discharge [facility] Respiratory Care Department Progress Note Spontaneous Awakening Trial Safety Screen Spontaneous Awakening Trial (SAT - RN) : Proceed with SAT - No exclusion criteria met (03/04/251223) Wean Screen SpO2>/=88%: Yes (03/04/251223) FiO2</=50%: Yes (03/04/251223) PEEP </=8cmH2O: Yes (03/04/251223) HR <140 BPM: Yes (03/04/251223) RR </= 35 breaths/min: Yes (03/04/251223) MAP >/= 65mmHg: Yes (03/04/251223) Arterial pH >7.30: Yes (03/04/251223) Safety Screen Spontaneous Breathing Trial (SBT - RT) : Proceed with SBT - No exclusion criteria met (03/04/251223) Spontaneous Breathing Trial Weaning Start Time: 1522 (03/04/25 160) Weaning Tidal Volume: 473 mL (03/04/25 1609) Weaning Respiratory Rate: 20 (03/04/25 1609) Spontaneous Minute Volume (MV): 8.26 (03/04/25 1609) Total RSBI: 42.28 (03/04/25 1609) Weaning Stop Time: 1609 (03/04/25 1609) Weaning Duration (min): 31 (03/04/25 1609) Spontaneous Breathing Trial (SBT - RT) Outcome: SBT Passed (03/04/251608) Vent Settings Vent Mode: Spontaneous (03/04/25 160) Mandatory Type: VC+ (03/04/25 122) Resp Rate (Set): 16 (03/04/25 122) Vt (Set, mL): 430 mL (03/04/25 122) FiO2 (%): 50 % (03/04/25 160) PEEP/CPAP (cm H2O): 8 cm H20 (03/04/25 1609) Inspiratory Time (sec): 0.9 sec (03/04/25 1224) Vitals Heart Rate: 89 (03/04/25 1609) Resp: 22 (03/04/25 1609) SpO2: 100 % (03/04/25 1609) Suctioning/Secretions ABG results Recent Labs 03/04/25 1131 03/04/25 1233 PHART 7.390 7.385 SPI6QIW 37.0 36.3 PO2ART 193.3* 187.1* [id number] 21.9 21.2 [id number] Ventilator Ventilator Ventilator Does this patient meet criteria for termination of mechanical ventilation Yes- Notified physician below Name of physician notified via secure chat or in person : DR. Diaz (NA if patient did not meet criteria) Comments: Thank you for involving Respiratory in the care of this patient, documented in this encounter [facility] 03-08-2025 Note Attestation signed by Jewel Lane MD at 03/08/2025 12:14 PM Attending Note I personally saw and evaluated the patient. I reviewed and agree with the NOELLE?s documentation. I provided a substantive portion of the care of this patient. I personally performed the medical decision making for this encounter as follows: Patient seen and examined on 03/08/25. As above, okay for discharge and follow-up in the office in 1 week. STAFF PHYSICIAN: Jewel Lane MD DATE OF SERVICE: March 08, 2025 TIME OF SERVICE: 12:14 PM Discharge Summary: Cardiothoracic Surgery Wallace Turk, 59 y.o., 1965 ADMIT DATE: 03/04/2025 DISCHARGE DATE: 03/08/2025 VISIT STATUS: Admission CODE STATUS: Full Code DISCHARGING SURGEON: Jewel Lane MD, Office Number: [phone] DISCHARGE DIAGNOSES: MVCAD s/p CABGx3 HTN T2DM HLD Post operative Pulm Management: Normal Post-operative Course Post-operative Atrial Fibrillation: []Yes [x] No Acute blood loss anemia/consumptive thrombocytopenia BMI CLASSIFICATION:Overweight (BMI 25.0-29.9) TREATMENT TEAM: Primary Care Physician: No primary care provider on file. Hotel Reservation Agent: Dr. Enrique SURGERY: s/p CABGx3 (MEADE-LAD, SVG-OM2, SVG-diag2), KWAME, LEVH with Dr. Lane on 03/04/25 HOSPITAL COURSE: 59-year-old male who was seen in the OP setting for CABG evaluation. Patient has history of CAD status post PCI of the LAD in May 2012, hypertension, type 2 diabetes, and hyperlipidemia. Recently saw cardiology January 19, 2025 with complaints of chest discomfort with exertion. An outpatient cath was scheduled and he underwent cardiac cath on 02/07/2025 which demonstrated severe triple-vessel CAD with LV dysfunction. Revascularization was discussed and patient consented he was taken to the operating room on 03/04/[address]. Postoperative course was uncomplicated. Once patient was hemodynamically and medically stable, [facility]. DIAGNOSTICS: BP 152/81 (BP Location: Right arm, Patient Position: Lying) Pulse 71 Temp 36.5 ?C (97.7 ?F) (Temporal) Resp 16 Ht 5' 9.02 (1.753 m) Wt 198 lb 6.6 oz (90 kg) SpO2 95% BMI 29.29 kg/m? Recent Labs 03/06/25 0005 03/07/25 0356 03/08/25 0521 CREATININE 0.76 0.71* 0.73 HGB 10.2* 10.3* 10.2* PLT 115* 130* 167 WBC 6.2 5.5 4.6 NA 139 140 140 K 3.9 3.6 3.4* DISCHARGE MEDICATIONS: Medication List PAUSE taking these medications NON FORMULARY Wait to take this until your doctor or other care provider tells you to start again. START taking these medications acetaminophen 500 MG tablet Commonly known as: Tylenol Take 2 tablets (1,000 mg) by mouth every 8 hours for 10 days. furosemide 40 MG tablet Commonly known as: Lasix Take 1 tablet (40 mg) by mouth daily for 7 days. Start taking on: March 09, 2025 Methocarbamol 1000 MG tablet Take 1,000 mg by mouth every 8 hours for 10 days. oxyCODONE 5 MG immediate release tablet Commonly known as: Roxicodone Take 1 tablet (5 mg) by mouth every 6 hours as needed for severe pain (7-10) (Acute post surgical pain) for up to 7 days. potassium chloride CR 20 MEQ ER tablet Commonly known as: Klor-Con M20 Take 1 tablet (20 mEq) by mouth daily for 7 days. Do not crush or chew. CHANGE how you take these medications atorvastatin 40 MG tablet Commonly known as: Lipitor What changed: how much to take * Dexcom G7 Sensor misc Replace with a new sensor every 10 days. What changed: Another medication with the same name was added. Make sure you understand how and when to take each. * Dexcom G7 Sensor misc Replace with a new sensor every 10 days. What changed: You were already taking a medication with the same name, and this prescription was added. Make sure you understand how and when to take each. insulin glargine 100 UNIT/ML pen Commonly known as: Lantus What changed: how much to take insulin lispro 100 UNIT/ML pen injection Commonly known as: HumaLOG What changed: how much to take * This list has 2 medication(s) that are the same as other medications prescribed for you. Read the directions carefully, and ask your doctor or other care provider to review them with you. CONTINUE taking these medications Alcohol Swabs pads For daily blood sugar monitoring 4 times daily for Continuous Glucose Monitor failure aspirin 81 MG EC tablet insulin pen needle 32G X 4 MM misc 4 times daily Lancets 33G misc 1 each 4 times daily. For daily blood sugar monitoring 4 times daily for Continuous Glucose Monitor failure metoprolol succinate XL 50 MG 24 hr tablet Commonly known as: Toprol-XL True Metrix Blood Glucose Test test strip Generic drug: glucose blood For daily blood sugar monitoring 4 times daily (more content not included)... [facility] 03-08-2025 Hospital course Narrative Images from the original note were not included. Discharge Summary: Cardiothoracic Surgery Wallace Turk, 59 y.o., 1965 ADMIT DATE: 03/04/2025 DISCHARGE DATE: 03/08/2025 VISIT STATUS: Admission CODE STATUS: Full Code DISCHARGING SURGEON: Jewel Lane MD, Office Number: [phone] DISCHARGE DIAGNOSES: MVCAD s/p CABGx3 HTN T2DM HLD Post operative Pulm Management: Normal Post-operative Course Post-operative Atrial Fibrillation: []Yes [x] No Acute blood loss anemia/consumptive thrombocytopenia BMI CLASSIFICATION:Overweight (BMI 25.0-29.9) TREATMENT TEAM: Primary Care Physician: No primary care provider on file. Hotel Reservation Agent: Dr. Enrique SURGERY: s/p CABGx3 (MEADE-LAD, SVG-OM2, SVG-diag2), KWAME, LEVH with Dr. Lane on 03/04/25 HOSPITAL COURSE: 59-year-old male who was seen in the OP setting for CABG evaluation. Patient has history of CAD status post PCI of the LAD in May 2012, hypertension, type 2 diabetes, and hyperlipidemia. Recently saw cardiology January 19, 2025 with complaints of chest discomfort with exertion. An outpatient cath was scheduled and he underwent cardiac cath on 02/07/2025 which demonstrated severe triple-vessel CAD with LV dysfunction. Revascularization was discussed and patient consented he was taken to the operating room on 03/04/[address]. Postoperative course was uncomplicated. Once patient was hemodynamically and medically stable, he was discharged home with home healthon 03/08/25, POD#4. DIAGNOSTICS: BP 152/81 (BP Location: Right arm, Patient Position: Lying) Pulse 71 Temp 36.5 C (97.7 F) (Temporal) Resp 16 Ht 5' 9.02 (1.753 m) Wt 198 lb 6.6 oz (90 kg) SpO2 95% BMI 29.29 kg/m Recent Labs 03/06/25 0005 03/07/25 0356 03/08/25 0521 CREATININE 0.76 0.71* 0.73 HGB 10.2* 10.3* 10.2* PLT 115* 130* 167 WBC 6.2 5.5 4.6 NA 139 140 140 K 3.9 3.6 3.4* DISCHARGE MEDICATIONS: Medication List PAUSE taking these medications NON FORMULARY Wait to take this until your doctor or other care provider tells you to start again. START taking these medications acetaminophen 500 MG tablet Commonly known as: Tylenol Take 2 tablets (1,000 mg) by mouth every 8 hours for 10 days. furosemide 40 MG tablet Commonly known as: Lasix Take 1 tablet (40 mg) by mouth daily for 7 days. Start taking on: March 09, 2025 Methocarbamol 1000 MG tablet Take 1,000 mg by mouth every 8 hours for 10 days. oxyCODONE 5 MG immediate release tablet Commonly known as: Roxicodone Take 1 tablet (5 mg) by mouth every 6 hours as needed for severe pain (7-10) (Acute post surgical pain) for up to 7 days. potassium chloride CR 20 MEQ ER tablet Commonly known as: Klor-Con M20 Take 1 tablet (20 mEq) by mouth daily for 7 days. Do not crush or chew. CHANGE how you take these medications atorvastatin 40 MG tablet Commonly known as: Lipitor What changed: how much to take * Dexcom G7 Sensor misc Replace with a new sensor every 10 days. What changed: Another medication with the same name was added. Make sure you understand how and when to take each. * Dexcom G7 Sensor misc Replace with a new sensor every 10 days. What changed: You were already taking a medication with the same name, and this prescription was added. Make sure you understand how and when to take each. insulin glargine 100 UNIT/ML pen Commonly known as: Lantus What changed: how much to take insulin lispro 100 UNIT/ML pen injection Commonly known as: HumaLOG What changed: how much to take * This list has 2 medication(s) that are the same as other medications prescribed for you. Read the directions carefully, and ask your doctor or other care provider to review them with you. CONTINUE taking these medications Alcohol Swabs pads For daily blood sugar monitoring 4 times daily for Continuous Glucose Monitor failure aspirin 81 MG EC tablet insulin pen needle 32G X 4 MM misc 4 times daily Lancets 33G misc 1 each 4 times daily. For daily blood sugar monitoring 4 times daily for Continuous Glucose Monitor failure metoprolol succinate XL 50 MG 24 hr tablet Commonly known as: Toprol-XL True Metrix Blood Glucose Test test strip Generic drug: glucose blood For daily blood sugar monitoring 4 times daily for Continuous Glucose Monitor failure True Metrix Meter w/Device kit 1 each 4 times daily. For daily blood sugar monitoring 4 times daily for Continuous Glucose Monitor failure STOP taking these medications chlorhexidine 0.12 % solution Commonly known as: Peridex glucagon 1 MG injection mupirocin 2 % ointment Commonly known as: Bactroban Where to Get Your Medications These medications were sent to [facility] [address] [place] [address] Hours: Friday to Friday 10 am to 6 pm Dexcom G7 Sensor misc furosemide 40 MG tablet Methocarbamol 1000 MG tablet oxyCODONE 5 MG immediate release tablet potassium chloride CR 20 MEQ ER tablet You can get these medications from any pharmacy You don't need a prescription for these medications acetaminophen 500 MG tablet *The patient's OARRS report was obtained and reviewed.* I explained to Wallace Turk that narcotic pain medications have addictive potential and should only be taken for acute post operative surgical pain. I also explained that narcotic/opioid medication should not be taken to help sleep as they are only intended to treat pain. In addition the patient needs to avoid driving or taking other narcotics, anxiolytics or consuming alcohol or using street drugs while they are taking the narcotic because serious side effects including can occur. I discussed the side effects that can occur when taking a narcotic alone including but not limited to: nausea, vomiting, constipation and drowsiness.I told the patient that if they have any reactions to the medication or any percieved problems with the medication, they are to stop the medication and call me. ACTIVITY: activity as tolerated, strict post-sternotomy/post-thoracotomy sternal precautions as outlined in the home going instructions, and no driving or operating heavy machinery until released by provider STRICT POST-STERNOTOMY/POST-THORACOTOMY PRECAUTIONS OUTLINED IN THE HOME GOING INSTRUCTIONS Wires Only Weight restriction measures 1-4 weeks from date of surgery- 10lbs weight restriction: 04/01/25 5-8 weeks from date of surgery- 20lbs weight restriction approximate end date:04/29/25 FOLLOW UP: Hossein JURADO Mar 15 2025 at 11:30 [address] [facility] [place] [address] Dept: [phone] Dept CORE CARDIAC MEDICATIONS PRESCRIBED AT DISCHARGE: Beta-liliana prescribed at discharge: [x] Yes [] No - reason why: ACEi or ARB prescribed at discharge: [] Yes [] No - reason why: EF greater than 40 Statin prescribed at discharge: [x] Yes [] No - reason why: Anti-platelet agent prescribed at discharge: [x] Yes [] No - reason why: If yes, type: asa Post-operative Atrial Fibrillation: []Yes [x] No OAC: [] Yes [x] No Initial Post-op RBC transfusion date/reason: none noted during post-operative course Chronic Lung Disease: Unknown DISPOSITION: Home with Home Assist A copy of the discharge instructions which included the medications at the time of discharge, follow-up appointments, phone numbers to call with questions, activity, restrictions, and limitations was provided to the patient or their family. We greatly appreciate the opportunity to participate in the care of your patient. If you have any additional questions or concerns regarding any aspects of their care or management please do not hesitate to contact us. SIGNED: Cosigned by Jewel Lane MD at 03/08/2025 12:14 PM EDT Associated attestation - Jewel Lane MD - 03/08/2025 12:14 PM EDT Attending Note I personally saw and evaluated the patient. I reviewed and agree with the NOELLE s documentation. I provided a substantive portion of the care of this patient. I personally performed the medical decision making for this encounter as follows: Patient seen and examined on 03/08/25. As above, okay for discharge and follow-up in the office in 1 week. STAFF PHYSICIAN: Jewel Lane MD DATE OF SERVICE: March 08, 2025 TIME OF SERVICE: 12:14 PM documented in this encounter [facility] 03-08-2025 Consult note Formatting of th is note might be different from the original. Received referral and reviewed chart. Phase II Cardiopulmonary Rehab Referral discussed with Wallace Turk. Patient prefers cardiopulmonary rehab at [facility]. Given information on program at preferred location. [facility] 03-08-2025 Note Received referral an d reviewed chart. Phase II Cardiopulmonary Rehab Referral discussed with Wallace Turk. Patient prefers cardiopulmonary rehab at [facility]. Given information on program at preferred location. [facility] 03-08-2025 Consult note Formatting of th is note might be different from the original. Received referral and reviewed chart. Phase II Cardiopulmonary Rehab Referral discussed with Wallace Turk. Patient prefers cardiopulmonary rehab at [facility]. Given information on program at preferred location. Associated Order(s): IP CONSULT TO DIETITIAN Nutrition Assessment Type and Reason for Visit: Initial, Consult, Patient Education (S/p Open Heart) Nutrition Recommendations/Plan: Recommend continue a Regular, 5 CHO diet. No indication for ONS at this time. RD discussed heart healthy & diabetic diet with patient, however pt somewhat resistant d/t pre-conceived health beliefs. He prefers a 'homeopathic' approach to health. He accepted written handout. Able to discuss CHO intake and BG trends but pt ended interview d/t disagreeing with some of the education. Monitor weight, labs, I/Os, skin integrity and overall nutrition status. RD to follow up weekly. 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 He recently saw Cardiology 01/19/25 for c/o chest discomfort with exertion. S/p OP cardiac cath on 02/07/2025 which demonstrated severe triple-vessel CAD with LV dysfunction. Pt is now s/p CABGx3, KWAME and LEVH with Dr. Lane on 03/04. Endocrinology was consulted 03/04 for stress hyperglycemia in the setting of T2DM w/ A1c 11.7 (02/24/25)--started insulin gtt. He also required Nitroglycerin gtt for BP control overnight but both Nitro and Insulin gtts discontinued 03/05. Pt was extubated post-op to 2L NC and his diet was advanced to Regular, 5 CHO. Pt having flatus but no BM yet. Per Endocrinology, pt uses Dexcom G7 at home. In the past he was on metformin, Jardiance and Trulicity but these were discontinued by pt. He will be discharged on basal bolus insulin. Pt ate >76% x [address] visited pt this AM to discuss diabetic diet and heart healthy diet. 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 He also will occasionally fast for 24 hours. He also prefers homeopathic approaches to health and is not a big fan of doctors. He has lost weight in the past by drinking a lot of smoothies. RD discussed having regular meal/snack times for better BG control, as well as avoiding fasting for prolonged periods of time. Discussed foods with carbs (including smoothies) but pt reports he does not eat bread, rice or pasta. Denies snacking on crackers, chips or pretzels. Reports he used to drink zero sugar pop but states they spike his blood sugar. Pt was somewhat resistant to diet education d/t pre-conceived health beliefs and he ended the interview, stating peace out. He also asked this RD to provide him with some chew (tobacco). He accepted Heart Healthy Consistent Carbohydrate Nutrition Therapy handout. Denied questions at this time. Estimated Daily Nutrient Needs: Energy Requirements Based On: Kcal/kg Weight Used for Energy Requirements: [place] Weight for Energy Calculation (kg): 73 kg Total Energy Requirements (kcals/day): 25-30 kcal/day = 4675-1193 kcal/day Weight Used for Protein Requirements: [place] Weight in Kg Used for Protein Requirements: 73 kg Estimated Total Protein (g/day): 1.0-1.2 g/kg = 73-88 g/day Estimated Daily Total Fluid (ml/day): per MD Nutrition Related Findings: Labs: BG 215/197/173, A1c 11.7 (02/24/25), Meds reviewed Orientation Level: Oriented X4, Cognition: Appropriate judgement, Appropriate safety awareness, Follows commands, Best Verbal Response: Oriented, Patient Behaviors/Mood: Calm, Cooperative Ghulam Scale Score: 20. Wound Type: Surgical Incision Net IO Since Admission: 1,886 mL [03/06/25 0928] Gastrointestinal (WDL): Exceptions to WDL Bowel Sounds (All Quadrants): Active Edema: , RUE Edema: None, LUE Edema: None, RLE Edema: Unable to assess, LLE Edema: None Oxygen Therapy: None (Room air), Current Nutrition Therapies: Adult diet Regular; 5 carb choices (75 gm/meal) Current Oral Intake Average Meal Intake: 76-100% Average Supplements Intake: None Ordered Anthropometric Measures: Height: 175.3 cm (5' 9.02) Current Body Weight: 91.5 kg (201 lb 11.5 oz) (03/05 bed) Admission Body Weight: 88.9 kg (196 lb) (03/04 stated) Usual Body Weight: (Per chart: 02/09/25 194#, 01/19/25 202#, 10/15/23 205#) [place] Body Weight (lbs) (Calculated): 160 lbs [place] Body Weight (Kg) (Calculated): 73 kg % [place] Body Weight (Calculated): 126.1 % BMI (kg/m2) (Calculated): 29.8 Weight Adjustment For: No Adjustment BMI Categories: Overweight (BMI 25.0-29.9) Nutrition Diagnosis: Food & Nutrition-related knowledge deficit related to endocrine dysfuntion, cardiac dysfunction as evidenced by lab values (A1c 11.7, s/p open heart surgery for CAD) Nutrition Interventions: Nutrition Education/Counseling: Survival skills/brief education completed (Diabetic and Heart Healthy Diet discussion and handout) Coordination of Nutrition Care: Continue to monitor while inpatient Educated on Heart Healthy and Diabetic Diet Learners: Patient Readiness: Acceptance at first, then declined Method: Explanation and Handout Response: No Evidence of Learning Goals: Goals: PO intake 75% or greater, by next RD assessment Nutrition Monitoring and Evaluation: Behavioral-Environmental Outcomes: Readiness for Change Food/Nutrient Intake Outcomes: Food and Nutrient Intake Physical Signs/Symptoms Outcomes: Biochemical Data, Nutrition Focused Physical Findings, Weight, GI Status, Fluid Status or Edema, Hemodynamic Status, Meal Time Behavior Discharge Planning: Recommend pursue outpatient nutrition counseling Tatum Rae RD Contact: *[phone] Associated Order(s): IP CONSULT TO CARDIAC REHAB Received referral and reviewed chart. Unable to discuss Phase II Cardiopulmonary Rehab Referral with Wallace Turk at this time. Will follow to discuss program when appropriate. Patient will be contacted at home if discharged prior to discussion. Associated Order(s): IP CONSULT TO ENDOCRINOLOGY Department of Internal Medicine Division of Endocrinology, Diabetes, & Metabolism Endocrinology Note Patient Name: Wallace Turk : 1965 AGE: 59 y.o. Room/Bed: [facility] A Admission Date: 03/04/2025 Visit Date: 03/04/2025 Reason for Endocrine Consult: post heart Provider/Team Requesting Consult: cts PCP: No primary care provider on file. 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 S/p CABGx3 Patient known to endcrine team outpatient for DM2- see prior notes. Recently started on home insulin outpatient. No noted hx of thyroid disease. Interval events: BGL below Stable currently on insulin gtt VSS, NPO Remains intubated/ sedated at this time Will clarify history once extubated- tomorrow Sees endocrine outpatient - on home insulin pens CT in place On propofol Pressor support as needed Spoke with team Type of DM: 2 Onset of DM: 2013 Home DM Medication Regimen: dexcom g7, lantus 12, humalog -per chart DM control (last A1c/glucose data): Lab Results Component Value Date HGBA1C 11.7 (A) 02/24/2025 Glucose Date/Time Value Ref Range Status 03/04/2025 05:49 AM 149 (H) 70 - 100 mg/dL Final 02/28/2025 06:08 AM 202 (H) 70 - 100 mg/dL Final 02/24/2025 11:08 AM 230 (A) 70 - 100 mg/dL Final Review of Systems ROS negative except for those mentioned in HPI. OBJECTIVE: Vitals: 03/04/25 0550 03/04/25 0743 BP: (!) 141/85 Pulse: 64 Resp: 16 Temp: (!) 35.7 C (96.3 F) TempSrc: Tympanic SpO2: 100% Weight: 196 lb (88.9 kg) 196 lb (88.9 kg) Height: 5' 9 (1.753 m) 5' 9 (1.753 m) Physical Exam Vitals and nursing note reviewed. Constitutional: General: He is sleeping. He is not in acute distress. Appearance: He is overweight. He is ill-appearing. He is not toxic-appearing. Interventions: He is sedated and intubated. HENT: Mouth/Throat: Mouth: Mucous membranes are moist. Cardiovascular: Rate and Rhythm: Normal rate. Pulmonary: Effort: Pulmonary effort is normal. No respiratory distress. He is intubated. Abdominal: Tenderness: There is no guarding. Musculoskeletal: Cervical back: Normal range of motion. Skin: General: Skin is warm and dry. Coloration: Skin is pale. Comments: Intact incision midline 24 hour intake/output: Intake/Output Summary (Last 24 hours) at 03/04/2025 1220 Last data filed at 03/04/2025 1158 Gross per 24 hour Intake 2154 ml Output 930 ml Net 1224 ml Diet: NPO diet Medications (as per EMR): HomeMeds: Current Outpatient Medications Medication Instructions Alcohol Swabs pads For daily blood sugar monitoring 4 times daily for Continuous Glucose Monitor failure aspirin 81 mg, Daily atorvastatin (LIPITOR) 40 mg, Daily Blood Glucose Monitoring Suppl (True Metrix Meter) w/Device kit 1 each, Does not apply, 4 times daily, For daily blood sugar monitoring 4 times daily for Continuous Glucose Monitor failure chlorhexidine (Peridex) 0.12 % solution 15 mL, Mouth/Throat, Once, Swish for 30 seconds and spit out the night before surgery. Do not swallow. Continuous Glucose Sensor (Invisible G7 Sensor) misc Replace with a new sensor every 10 days. glucagon 1 mg, SubCUTAneous, Once PRN glucose blood (True Metrix Blood Glucose Test) test strip For daily blood sugar monitoring 4 times daily for Continuous Glucose Monitor failure insulin glargine (LANTUS) 12 Units, SubCUTAneous, Nightly insulin lispro (HUMALOG) 4 Units, SubCUTAneous, 3 times daily before meals insulin pen needle 32G X 4 MM misc 4 times daily Lancets 33G misc 1 each, Does not apply, 4 times daily, For daily blood sugar monitoring 4 times daily for Continuous Glucose Monitor failure metoprolol succinate XL (TOPROL-XL) 50 mg, Daily mupirocin (Bactroban) 2 % ointment Apply liberal amount per nostril the night before surgery and then again the morning of surgery NON FORMULARY STOPPED TAKING PER DR LANE BEFORE SURGERY Lions kathryn, berberine, salon cinnamon, multivitamin- Alive, vitamin d3 w/ k2, Scheduled Meds:Scheduled Meds[1] Continuous Infusions:Continuous Meds[2] PRN Meds:PRN Meds[3] Diagnostic Workup: I reviewed pertinent Laboratory results, Radiographic results, and Other Clinical Notes at the time of today's encounter. Labs: No components found for: LABA1C No components found for: EAG No results found for: NA, K, CL, CO2, BUN, CREATININE, GLUCOSE, CALCIUM Lab Results Component Value Date CHOL 146 02/25/2025 Lab Results Component Value Date TRIG 99 02/25/2025 Lab Results Component Value Date HDL 45 (A) 02/25/2025 Lab Results Component Value Date LDLCALC 83 02/25/2025 No results found for: VLDL No results found for: CHOLHDLRATIO No results found for: [id number] Lab Results Component Value Date TSH 1.79 02/25/2025 Radiology reportsas per the Radiologist Radiology: POCT glucose meter Result Date: 03/04/2025 Performed by: [facility], [address] [place], [place] [id number] CLIA ID: [id number] History/Other: Past Medical History: Medical History[4] Past Surgical History: Surgical History[5] Allergy(ies): Allergies[6] Family History: Family History[7] Social History: Social History[8] Portions of the information within this encounter were entered using an electronic dictation system. Best attempts were made to edit/proofread the information prior to note completion. Despite the review of information, some errors may remain. If there are questions related to the information contained within the note please contact the signing physician directly. I spent 35 minutes with the pt which involved coordination of care, medical evaluation, review of records, and/or counseling of the pt regarding his/her condition/disease state/prognosis on the date of this note. [1] acetaminophen, 1,000 mg, Oral, q8h ceFAZolin, 2,000 mg, IntraVENous, q8h [START ON 03/05/2025] chlorhexidine, , Topical, Daily chlorhexidine, 15 mL, Mouth/Throat, BID Lidocaine, 1 patch, Topical, Daily mupirocin, , Nasal, BID [START ON 03/05/2025] pantoprazole, 40 mg, IntraVENous, Daily polyethylene glycol (PEG) 3350, 17 g, Oral, Daily senna-docusate sodium, 2 tablet, Oral, Nightly sodium chloride 0.9%, 5-40 mL, IntraCATHeter, q8h sugammadex, 4 mg/kg, IntraVENous, Once [2] EPINEPHrine, 0.01-0.2 mcg/kg/min insulin regular, 0.5-50 Units/hr lactated ringers, 250 mL nitroglycerin, 5-200 mcg/min propofol, 5-50 mcg/kg/min sodium chloride, 20 mL/hr sodium chloride, 50 mL/hr, Last Rate: Stopped (03/04/25 1158) [3] PRN medications: albumin human, calcium gluconate, dextrose, dextrose, EPINEPHrine, glucagon (rDNA), glucose, ipratropium-albuterol, lactated ringers, magnesium hydroxide, magnesium sulfate OR magnesium sulfate, morphine sulfate OR morphine sulfate, nitroglycerin, ondansetron ODT OR ondansetron, oxyCODONE OR oxyCODONE, potassium chloride OR potassium chloride OR potassium chloride, [START ON 03/05/2025] potassium chloride CR, sodium chloride 0.9% [4] Past Medical History: Diagnosis Date Coronary artery disease Diabetes mellitus (HCC) Erectile dysfunction Hyperlipidemia Hypertension Neuropathy LILA (obstructive sleep apnea) non compliant [5] Past Surgical History: Procedure Laterality Date ACHILLES TENDON SURGERY Right COLONOSCOPY CORONARY ANGIOPLASTY 05/2012 CORONARY STENT PLACEMENT x3 [6] No Known Allergies [7] Family History Problem Relation Name Age of Onset Diabetes Mother Coronary artery disease Mother Heart attack Mother Stroke Mother Diabetes Father [8] Social History Tobacco Use Smoking status: Never Smokeless tobacco: Current Types: Chew Vaping Use Vaping status: Never Used Substance Use Topics Alcohol use: Yes Alcohol/week: 2.0 standard drinks of alcohol Types: 2 Cans of beer per week Drug use: Not Currently Cosigned by Martell Guthrie MD at 03/04/2025 2:33 PM EDT Associated attestation - Martell Guthrie MD - 03/04/2025 2:33 PM EDT I have personally performed a face to face diagnostic evaluation on this patient. In addition, I have reviewed the resident's/CLINICAL BIOSTATISTICIAN/SOLAR SYSTEMS DESIGNER's care plan and agree with those findings I have performed a substantive portion of the the medical decision making. My findings are as follows: Patient has type 2 diabetes at least since 2013 Was seen recently at our office was started on basal bolus insulin Uses Dexcom G7 at home Past he was on metformin, Jardiance, Trulicity but they were discontinued by patient Previous michelle and islet cell antibodies were negative Patient is currently intubated, on insulin drip Lab Results Component Value Date HGBA1C 11.7 (A) 02/24/2025 Vitals: BP (!) 141/85 Pulse 61 Temp (!) 35.5 C (95.9 F) Resp 17 Ht 5' 9 (1.753 m) Wt 196 lb (88.9 kg) SpO2 100% BMI 28.94 kg/m Constitutional: Intubated Respiratory: No respiratory distress Cardiovascular System: RNo lower extremity edema A/P Type 2 diabetes with hyperglycemia with long-term insulin use Type 2 diabetes with cardiac complication Overweight Body mass index is 28.94 kg/m . Continue insulin drip BG Q 1 hour per protocol Will switch insulin drip to sc insulin in 24 to 48 hours. Patient will be discharged on basal bolus insulin We will follow-up closely Old records including available PCP, ED notes and or other specialists notes are reviewed. LABs and/or imaging are reviewed as detailed in the resident's/CLINICAL BIOSTATISTICIAN/SOLAR SYSTEMS DESIGNER's note Images from the original note were not included. [facility] Group: Critical Care Consultation Note Date: 03/04/25 PATIENT NAME: Wallace Turk : 1965 (59 y.o.) Reason for Consult: Critical Care & Vent Management HPI: 59-year-old male who was seen in the OP setting for CABG evaluation. Patient has history of CAD status post PCI of the LAD in May 2012, hypertension, type 2 diabetes, and hyperlipidemia. Recently saw cardiology January 19, 2025 with complaints of chest discomfort with exertion. An outpatient cath was scheduled and he underwent cardiac cath on 02/07/2025 which demonstrated severe triple-vessel CAD with LV dysfunction. Revascularization was discussed and patient consented he was taken to the operating room on 03/04/[address]. Surgery: 03/04/25: s/p CABGx3 (MEADE-LAD, SVG-OM2, SVG-diag2), KWAME, LEVH with Dr. Lane Interval History: 03/04/25: POD #0: Patient arrived to the unit, intubated and sedated. Surgical hand off completed below. Surgery Hand Off: Arrival Time in CTVICU: 1218 Complications/Pertinent Events: Last Paralytic: 1120 Medications given in route: Gtts OR report Propofol: 25mcg/kg/min Insulin: 2units/hr Amicar: 29 Current gtts upon arrival Propofol: 50mcg/kg/min Insulin: 2units/hr Amicar: 29 Devices: Epicardial wires: yes [x] no [] IABP: yes [] no [x] LVAD: yes [] no [x] Speed: Equipment: Back up controller yes [] no [x] Blood Transfusions Intra Op: yes [] no [x] CellSaver: 400mL Vital Signs including Cardiac Numbers (if indicated) at Conclusion of Hand-off OR CTVICU CO NO SWAN CI CVP SVR PAP Additional Interventions/Misc during Handoff Review of Systems Unable to perform ROS: Intubated Allergies: Patient has no known allergies. Past Medical History: has a past medical history of Coronary artery disease, Diabetes mellitus (HCC), Erectile dysfunction, Hyperlipidemia, Hypertension, Neuropathy, and LILA (obstructive sleep apnea). Past Surgical History: has a past surgical history that includes Coronary angioplasty (05/2012); Coronary stent placement; Achilles tendon surgery (Right); and Colonoscopy. Social History: reports that he has never smoked. His smokeless tobacco use includes chew. He reports current alcohol use of about 2.0 standard drinks of alcohol per week. He reports that he does not currently use drugs. Family History: family history includes Coronary artery disease in his mother; Diabetes in his father and mother; Heart attack in his mother; Stroke in his mother. Medications: Prior to Admission medications Medication Sig Start Date End Date Taking? Authorizing Provider Alcohol Swabs pads For daily blood sugar monitoring 4 times daily for Continuous Glucose Monitor failure 02/24/25 Yes Richard Marquez PA-C aspirin 81 MG EC tablet Take 81 mg by mouth daily. Yes Historical Provider, atorvastatin (Lipitor) 40 MG tablet Take 40 mg by mouth daily. Yes Historical Provider, Blood Glucose Monitoring Suppl (True Metrix Meter) w/Device kit 1 each 4 times daily. For daily blood sugar monitoring 4 times daily for Continuous Glucose Monitor failure 02/24/25 02/24/26 Yes Richard Marquez PA-C chlorhexidine (Peridex) 0.12 % solution Use 15 mL in the mouth or throat Once for 1 dose. Swish for 30 seconds and spit out the night before surgery. Do not swallow. 02/21/25 03/04/25 Yes TROY Fregoso CNP Continuous Glucose Sensor (Tagorizecom G7 Sensor) misc Replace with a new sensor every 10 days. 02/24/25 Yes Richard Marquez PA-C glucose blood (True Metrix Blood Glucose Test) test strip For daily blood sugar monitoring 4 times daily for Continuous Glucose Monitor failure 02/24/25 Yes Richard Marquez PA-C insulin glargine (Lantus) 100 UNIT/ML pen Inject 12 Units under the skin Nightly. 03/03/25 03/03/26 Yes Richard Marquez PA-C insulin lispro (HumaLOG) 100 UNIT/ML pen injection Inject 4 Units under the skin 3 times daily (before meals). 03/03/25 03/03/26 Yes Richard Marquez PA-C insulin pen needle 32G X 4 MM misc 4 times daily 02/24/25 Yes Richard Marquez PA-C Lancets 33G misc 1 each 4 times daily. For daily blood sugar monitoring 4 times daily for Continuous Glucose Monitor failure 02/24/25 02/24/26 Yes Richard Marquez PA-C metoprolol succinate XL (Toprol-XL) 50 MG 24 hr tablet Take 50 mg by mouth daily. Do not crush or chew. Yes Historical Provider, mupirocin (Bactroban) 2 % ointment Apply liberal amount per nostril the night before surgery and then again the morning of surgery 02/21/25 Yes TROY Fregoso CNP NON FORMULARY STOPPED TAKING PER DR LANE BEFORE SURGERY Lions kathryn, berberine, salon cinnamon, multivitamin- Alive, vitamin d3 w/ k2, Yes Historical Provider, glucagon 1 MG injection Inject 1 mL (1 mg) under the skin Once as needed for low blood sugar. Patient not taking: Reported on 03/04/2025 02/24/25 02/24/26 Richard Marquez PA-C insulin glargine (Lantus) 100 UNIT/ML pen Inject 10 Units under the skin Nightly. 02/24/25 03/03/25 Richard Marquez PA-C insulin lispro (HumaLOG) 100 UNIT/ML pen injection Inject 3 Units under the skin 3 times daily (before meals). 02/24/25 03/03/25 Richard Marquez PA-C Objective: BP (!) 141/85 Pulse 64 Temp (!) 35.7 C (96.3 F) (Tympanic) Resp 16 Ht 5' 9 (1.753 m) Wt 196 lb (88.9 kg) SpO2 100% BMI 28.94 kg/m Intake/Output Summary (Last 24 hours) at 03/04/2025 0913 Last data filed at 03/04/2025 0908 Gross per 24 hour Intake -- Output 150 ml Net -150 ml Physical Exam Vitals reviewed. Constitutional: Interventions: He is sedated and intubated. HENT: Mouth/Throat: Comments: ETT/OG. Neck: Comments: Central line. Cardiovascular: Rate and Rhythm: Normal rate and regular rhythm. Pulses: Normal pulses. Heart sounds: No murmur heard. Pulmonary: Effort: He is intubated. Breath sounds: No wheezing, rhonchi or rales. Comments: Ventilator assisted. Abdominal: General: There is no distension. Palpations: Abdomen is soft. Comments: Chest tubes. Genitourinary: Comments: [place]. Skin: General: Skin is warm and dry. Capillary Refill: Capillary refill takes less than 2 seconds. Comments: CATY wrap LLE, surgical incisions without swelling or drainage. Diagnostics: Reviewed in EMR Labs: Reviewed in EMR BMP:No results for input(s): NA, K, CL, CO2, BUN, CREATININE, CALCIUM, MG, PHOS in the last 72 hours. CBC: No results for input(s): WBC, HGB, HCT, PLT, MCV, RDW in the last 72 hours. INR: No results for input(s): INR in the last 72 hours. Assessment: MVCAD s/p CABGx3 HTN T2DM HLD Post operative Pulm Management: Normal Post-operative Course Post-operative Atrial Fibrillation: []Yes [x] No Acute blood loss anemia/consumptive thrombocytopenia Plan: - Sugamadex x1 - STAT EKG, CXR - Wean sedation as able, goal RASS -1 to 0 - SAT/SBT when appropriate->extubate - Recheck labs - No [place], okay for VBG if concerns for low CI - Hemodynamic goals: CI >2.0, SBP 90-130 mmHg, MAP 60-75 - PRN Hypertension Nitro gtt -PRN Hypotension CI >2.0 euvolemic with low SVR- Alec gtt CI <2.0 euvolemic - Epinephrine gtt - Temp pacing wires/mode: v-wires to backup - Chest tubes: no air leak or fluctuation noted, suction -20 - Cefazolin - surgical prophy for 5 doses total - Wean to Extubation: Arrival Time in unit: 1218 - Vent: ACVC+, TV 6ml/kg/min, rate 12, fio2 100% PEEP 8 VAP protocol: HOB >30 degrees; peridex BID - Insulin gtt; per endo/protocol - GI prophy: Protonix IV daily Critical Care time spent 30 minutes. The time involved in the performance of this care was exclusive of separately billable procedures, teaching time and treating other patients. The time was spent personally by myself for the following activities: examination of the patient, ordering and/or performing treatment, reviewing the laboratory and radiographic studies, and if applicable, ventilator management and blood gas interpretation. Patient treatment plan and plan of care discuss with Dr. Kobi Ortega Cosigned by Kobi Guerrero MD at 03/04/2025 1:03 PM EDT Associated attestation - Kobi Guerrero MD - 03/04/2025 1:03 PM EDT I have personally performed a face to face diagnostic evaluation on this patient today on 03/04/25. Labs, imaging studies, and electronic medical record notes on [employer] have been reviewed by me. This note documented and discussed by the []chief supply chain officer []Fellow [x] NOELLE reflects my history, exam and medical decision making. I have reviewed and agree with the care plan. Changes were made in the orders as necessary. ROS documentation was reviewed and negative unless otherwise stated in the HPI. My history, exam, assessment and plan are as follows: All reflect current medical decision making from 03/04/25. Physical Exam listed was completed in entirely on 03/04/25 and is unchanged except where noted. Critical care time spent excluding separately billable procedures is 34 minutes. Chief Complaint: Coronary artery disease of [place] artery of [place] heart with stable angina pectoris Additional pertinent interval history, ROS, and physical exam findings: Patient seen and examined. Sedated, intubated, pupils symmetric Heart RRR Lungs symmetric air exchange No cyanosis Assessment and Plan: mvCAD 03/04 s/p CABG x 3 Post op vent management Anemia, thrombocytopenia expected post op HTN, HLD DM2 On mech vent, f/u CXR and ABG SAT/SBT later today Transfuse prn Status: Critically ill Disposition: Remain in ICU until discharge documented in this encounter [facility] 03-08-2025 Hospital Discharge instructions Hossein Romero APRN - MAIL PROCESSING EQUIPMENT MECHANIC - 03/08/2025 8:28 AM EDT Images from the original note were not included. [facility] Medical Group: Cardiothoracic Surgery [address] [facility] #[phone] Notify us if the following occur - Increased tenderness, redness, or swelling of your incisions. - Any drainage from the chest incision (clear or pink drainage from the leg incision or chest tube site is common). - Angina symptoms like those you had before surgery - Sharp pain in chest, neck or shoulder that is worse when taking a deep breath - Persistent fever greater than 100 degrees F or 38 degrees C - Flu-like symptoms-chills, aches, fever, increased fatigue - Heart rate faster than 150 beats/minute with shortness of breath or new irregular heart rate. - Any unusual bleeding - Shortness of breath not relieved by rest - Weight gain of three pounds in one day or five pounds over one week Activity Instructions - Sternal Precautions for 6 weeks - Do not lift, push, or pull anything heavier than 10 pounds for 6 weeks (a gallon of milk weighs 8 pounds). - Do not drive until you have been given permission by your surgeon/provider and until you are off narcotic/opioid pain medication - It is ok to sleep on your side if you prop pillows to support your back. Do not sleep on your stomach. - Walk at least 4 times a day, start with 5 minute intervals, increase minutes walked each day. Do not walk on a treadmill - Balance rest and activity during your recovery - Use the stairs, but go slowly, Use the handrail for balance but do not pull yourself up with your arms. - Shower daily. Do not take your heart medication right before you shower. You could become lightheaded from your blood pressure and heart medication. Always have someone nearby to assist you. - Do not take a tub bath or use a hot tub until all incision are completely healed (no scab). - Put lucas hose on in AM and remove at bedtime. Elevate your feet above level of heart when you are sitting. - Cough and deep breathe and use incentive spirometer every hour (10x/hour while awake for two weeks). Other Instructions - Weigh yourself daily at the same time (after you urinate but before breakfast) - Keep a record of your daily weight, and bring to your first post op office visit - Take all medications as prescribed. Bring all your medication bottles to any follow up office visit Incision Care - Wash your sternal incision with anti-bacterial soap and warm water. Pat dry, and leave open to air. Do not use any lotions, or powders, or ointments. Cardiothoracic Surgery: Symptom Management Office phone number: [phone] Office is open 8:30 am -4 pm. If you need assistance after hours, this will direct you to a nursing hotline. GREEN ZONE: All Clear- Your Symptoms Are Under Control Incisional pain is managed by taking Acetaminophen and/or pain medication No increase in shortness of breath No increase in leg swelling or weight gain No frequent lightheadedness/dizziness No redness or drainage from incisions. Small amount of thin, blood tinged or yellow drainage is not uncommon for few days post discharge This Means You Should: Continue current plan of care Continue taking your medications as prescribed Continue activity as tolerated, including 4 walks daily and PT exercised Eat healthy diet, no caffeine Keep all follow-up appointments No smoking YELLOW ZONE: Caution Incisional pain that is getting worse and/or not managed by pain medication Increase in shortness of breath, especially when at rest Increased leg swelling or new leg swelling Weight gain (more than 3lb in 1 day or 5lb in 1 week) Lightheadedness, dizziness, or heavy sweating Redness and/or thick drainage from incision Fever/chills This Means You Should: Call cardiothoracic surgery line for further instructions: [phone] Office is open 8:30 am -4 pm. If you need assistance after hours, this will direct you to a nursing hotline. RED ZONE: Medical Alert Severe shortness of breath at rest Severe chest pain/pressure or pain that radiates to neck, jaw, back, and/or arm that is NOT relieved with rest and pain medication. May be similar to pain prior to surgery Passing out or fainting This Means You Should: call EMS or seek care in Emergency Department documented in this encounter [facility] 03-08-2025 Note Cardiothoracic Surge ry/CCM Progress Note PATIENT NAME: Wallace Turk DATE: 03/08/25 HPI: 59-year-old male who was seen in the OP setting for CABG evaluation. Patient has history of CAD status post PCI of the LAD in May 2012, hypertension, type 2 diabetes, and hyperlipidemia. Recently saw cardiology January 19, 2025 with complaints of chest discomfort with exertion. An outpatient cath was scheduled and he underwent cardiac cath on 02/07/2025 which demonstrated severe triple-vessel CAD with LV dysfunction. Revascularization was discussed and patient consented he was taken to the operating room on 03/04/[address]. Surgery/Procedure: 03/04/25: s/p CABGx3 (MEADE-LAD, SVG-OM2, SVG-diag2), KWAME, LEVH with Dr. Lane Interval History: 03/08/25, POD# 4: VSS - still with pain if he lets his meds lapse. Otherwise no acute issues overnight. Wants to get out of here today. Review of Systems Constitutional: Negative for diaphoresis, fatigue and fever. Respiratory: Negative for cough, shortness of breath and wheezing. Cardiovascular: Negative for chest pain, palpitations and leg swelling. Gastrointestinal: Negative for abdominal distention, constipation and diarrhea. Skin: Negative for color change, pallor and rash. Objective: Last BM Date: 03/07/25 Vitals: BP: 133/73, MAP (mmHg): 89, BP Method: Automatic Heart Rate: 65 Resp: 18 Temp: 36.3 ?C (97.4 ?F), Temp Source: Temporal BMI (Calculated): 29.29 BMP: Recent Labs 03/06/25 0005 03/07/25 0356 NA 139 140 K 3.9 3.6 CL 108* 107 CO2 24 26 BUN 20 20 CREATININE 0.76 0.71* CALCIUM 8.4 8.5 MG 2.1 1.9 CBC: Recent Labs 03/06/25 0005 03/07/25 0356 03/08/25 0521 WBC 6.2 5.5 4.6 HGB 10.2* 10.3* 10.2* HCT 31.5* 31.5* 30.8* PLT 115* 130* 167 MCV 89.0 88.2 87.3 RDW 13.7 13.5 13.6 Physical Exam Cardiovascular: Rate and Rhythm: Normal rate and regular rhythm. Heart sounds: Normal heart sounds. No murmur heard. No friction rub. Pulmonary: Effort: Pulmonary effort is normal. Skin: General: Skin is warm and dry. Capillary Refill: Capillary refill takes less than 2 seconds. Findings: Bruising and ecchymosis present. Comments: Surgical Incisions: well approximate; clean dry with no drainage noted. Surrounding skin no redness, warmth, or signs of infection noted. Neurological: Mental Status: He is alert. Psychiatric: Behavior: Behavior is cooperative. Assessment: MVCAD s/p CABGx3 HTN T2DM HLD Post operative Pulm Management: Normal Post-operative Course Post-operative Atrial Fibrillation: []Yes [x] No Acute blood loss anemia/consumptive thrombocytopenia Plan: Patient Status: Progressive Care Medications: ASA, statin, BB - no changes to medications Change to PO lasix GI prophy: PO protonix DVT prophy: Lovenox SubQ Bowel: senna/miralax Interventions: Pulmonary hygiene: IS and Acapella TEDs, SCDs Lines/Drains: -CVC: remove today - order placed Restraints: []Yes [x] No Consults: Endocrinology following- insulin management D/c recs: TBD - will need endo's final recs Therapies: PT: home with assist OT: home with assist Disposition: TBD - home today Tele Status A total of 16 minutes were spent between the [id number] encounter, physical exam, reviewing the medical history, coordinating the patient's care, counseling/educating the patient, ordering medications/test/procedures, interpreting results and documenting clinical information in the patients electronic health record on the day of the encounter. The patient was seen and examined Patient discussed and plan of day developed from multidisciplinary rounds between Cardiothoracic Surgery (Cardiothoracic Surgeon, NOELLE) and Critical Care Attending Cardiac Core Medications: ASA, Statin, and BB EF: KWAME formal read pending Blood Conservation: None noted in post-operative period Hotel Reservation Agent: Dr. Enrique [facility] 03-07-2025 Note Care Management Prog ress Note Short Medical why still here: Tcc chart review complete, iv lasix, right internal jugular introducer, temp pacer, chest tube, tcc to follow Planned Discharge Disposition: Home or Self Care (tbd) - KEV following Barriers/Today we still Wait: Administering IV medications, Clinical stability, Professor In Family Studies recommendations (comment), Symptomatic control Length of Stay (Days): 3 GMLOS: 5.8 [facility] 03-07-2025 Progress note Formatting of t his note might be different from the original. Care Management Progress Note Short Medical why still here: Tcc chart review complete, iv lasix, right internal jugular introducer, temp pacer, chest tube, tcc to follow Planned Discharge Disposition: Home or Self Care (tbd) - ANGULO following Barriers/Today we still Wait: Administering IV medications, Clinical stability, Professor In Family Studies recommendations (comment), Symptomatic control Length of Stay (Days): 3 GMLOS: 5.8 [facility] 03-07-2025 Note Cardiothoracic Surge ry/CCM Progress Note PATIENT NAME: Wallace Turk DATE: 03/07/25 HPI: 59-year-old male who was seen in the OP setting for CABG evaluation. Patient has history of CAD status post PCI of the LAD in May 2012, hypertension, type 2 diabetes, and hyperlipidemia. Recently saw cardiology January 19, 2025 with complaints of chest discomfort with exertion. An outpatient cath was scheduled and he underwent cardiac cath on 02/07/2025 which demonstrated severe triple-vessel CAD with LV dysfunction. Revascularization was discussed and patient consented he was taken to the operating room on 03/04/[address]. Surgery/Procedure: 03/04/25: s/p CABGx3 (MEADE-LAD, SVG-OM2, SVG-diag2), KWAME, LEVH with Dr. Lane Interval History: 03/07/25, POD# 3: VSS on RA. Up independently walking the unit. No acute issues noted overnight. Tolerating diet, voiding appropriately. No BM yet passing flatus. Review of Systems Constitutional: Negative for diaphoresis, fatigue and fever. Respiratory: Negative for cough, shortness of breath and wheezing. Cardiovascular: Negative for chest pain, palpitations and leg swelling. Gastrointestinal: Negative for abdominal distention, constipation and diarrhea. Skin: Negative for color change, pallor and rash. Objective: CT output cc/24hrs: 260 - 80 for nights UO cc/24hrs: 1775 Vitals: BP: 141/71, MAP (mmHg): 91, BP Method: Automatic Heart Rate: 71 Resp: 18 Temp: 36.7 ?C (98 ?F), Temp Source: Temporal BMI (Calculated): 29.29 Pacer Wires: present BMP: Recent Labs 03/04/25 1131 03/04/25 1233 03/05/25 0018 03/06/25 0005 03/07/25 0356 NA 140 < > 137 139 140 K 3.3* < > 3.9 3.9 3.6 CL 112* < > 110* 108* 107 CO2 22 < > 21* 24 26 BUN 18 < > 12 20 20 CREATININE 0.71* < > 0.71* 0.76 0.71* CALCIUM 7.1* < > 8.2* 8.4 8.5 MG 2.5 < > 1.8 2.1 1.9 PHOS 3.4 -- -- -- -- < > = values in this interval not displayed. CBC: Recent Labs 03/05/25 0018 03/06/25 0005 03/07/25 0356 WBC 5.8 6.2 5.5 HGB 10.4* 10.2* 10.3* HCT 31.1* 31.5* 31.5* PLT 119* 115* 130* MCV 86.4 89.0 88.2 RDW 13.4 13.7 13.5 Physical Exam Cardiovascular: Rate and Rhythm: Normal rate and regular rhythm. Heart sounds: Normal heart sounds. No murmur heard. No friction rub. Pulmonary: Effort: Pulmonary effort is normal. Skin: General: Skin is warm and dry. Capillary Refill: Capillary refill takes less than 2 seconds. Findings: Bruising and ecchymosis present. Comments: Surgical Incisions: well approximate; clean dry with no drainage noted. Surrounding skin no redness, warmth, or signs of infection noted. Neurological: Mental Status: He is alert. Psychiatric: Behavior: Behavior is cooperative. Assessment: MVCAD s/p CABGx3 HTN T2DM HLD Post operative Pulm Management: Normal Post-operative Course Post-operative Atrial Fibrillation: []Yes [x] No Acute blood loss anemia/consumptive thrombocytopenia Plan: Patient Status: Progressive Care Medications: ASA, statin, BB - no changes to medications Continue IV lasix-- plan PO lasix likely at d/c GI prophy: PO protonix DVT prophy: Lovenox SubQ Bowel: senna/miralax Interventions: Pulmonary hygiene: IS and Acapella TEDs, SCDs Lines/Drains: -CVC: remove today -Chest tubes: remove today Restraints: []Yes [x] No Consults: Endocrinology following- insulin management D/c recs: TBD Therapies: PT: home with assist OT: home with assist Disposition: TBD - likely home tomorrow Tele Status A total of 15 minutes were spent between the [id number] encounter, physical exam, reviewing the medical history, coordinating the patient's care, counseling/educating the patient, ordering medications/test/procedures, interpreting results and documenting clinical information in the patients electronic health record on the day of the encounter. The patient was seen and examined Patient discussed and plan of day developed from multidisciplinary rounds between Cardiothoracic Surgery (Cardiothoracic Surgeon, NOELLE) and Critical Care Attending Cardiac Core Medications: ASA, Statin, and BB EF: KWAME formal read pending Blood Conservation: None noted in post-operative period Hotel Reservation Agent: Dr. Enrique [facility] 03-06-2025 Note OCCUPATIONAL THERAPY [facility] Initial Evaluation Name/MRN: Wallace Turk ([id number]) Evaluation Date: 03/06/2025 Date of : 1965 Admission Date: 03/04/2025 5:22 AM Age: 59 y.o. Room/Bed: T1-123/T1-123 A Discharge Recommendation: Home with assist PRN Equipment Needed: No Assessment IMPRESSION: Patient is a 59-year-old male hospitalized s/p CABG x 3 on 03/04. Patient is functionally independent with self-care tasks and functional mobility at baseline. Patient is limited by the deficits listed below. Patient is Modified Independent for UB ADLs, Supervision LB ADLs and Supervision toileting. Patient is Supervision for transfers/functional mobility. Recommending Home with Assist PRN upon discharge. Admitting Diagnosis: CAD in [place] artery Performance Deficits /Impairments: Increased Pain Prognosis: Good Decision Making: Low Complexity Subjective Patient is sitting in recliner; patient agreeable to therapy evaluation. RN ok'd for participation. Pain: 0-10 pain scale: 3/10 Location: chest tube Past Medical History: Medical History[1] Past Surgical History: Surgical History[2] Admission Diagnosis: Patient Active Problem List Diagnosis Date Noted CAD in [place] artery 02/28/2025 Medical Precautions: No active isolations Proper PPE donned/doffed in accordance with facility standards. Fall Risk: Khan Fall Risk Score: 60 (High Risk) Precautions/Restrictions: Sternal Precautions: No Pushing, No Pulling, No Lifting Greater Than 10 lbs and No lifting greater than 10 lbs. Ok for modified UE precautions using Keep Your Move in the Tube technique Lines/Drains/Airways: tele, CVC, chest tube Family/Caregiver Present: spouse, child(hans), and granddaughter Overall Cognitive Status: WNL Overall Orientation Status: Oriented x4 Social/Functional History Patient admitted from home. Lives With: Spouse Type of Home: single family home Home Layout: Two Level Home and Able to Live on Main Level Home Access: Stairs to Enter without Rails (# of stairs: 3) Bathroom Shower/Tub: Step over tub Toilet: N/A Home Equipment: none Homemaking Responsibilities: Independent Receives Help From: None Active Cloth Printing Back Tender: Yes Prior Level of Function Prior Level of ADL Function: Independent Prior Level of Mobility: Independent; Device: None Prior Level of Transfers: Independent Objective ADLs LE Dressing: Supervision- donning/doffing socks sitting at EOB using figure four method Upper Extremity Assessment AROM: WFL PROM: Not assessed this session Strength: Not assessed this session. Bed Mobility NT- patient up in recliner pre/post therapy evaluation Transfers/Mobility Sit to stand: Supervision Stand to sit: Supervision Toilet: Supervision Standing balance: Supervision Functional mobility: Supervision Patient is supervision for all transfers and functional mobility. No overt LOB noted. Mild SOBOE. Patient with good carryover of sternal precautions. Device(s) used: None AM-PAC AM-PAC Inpatient Daily Activity Raw Score: 24 ADL Inpatient CMS G-Code Modifier: CH Plan No skilled acute OT indicated at this time. Please reconsult should changes occur. Safety/Education Safety Safety Devices in place: All fall risk precautions in place, call light within reach, left in chair, and nurse notified Restraints: No Education Education Given To: patient Education Provided: OT Role, Plan of Care, Precautions, and Discharge Recommendations Education Method: Verbal Barriers to Learning: None Education Outcome: Verbalized Understanding Goals Patient Stated Goal: to go home Therapy Time Individual Co-Treatment Co-Evaluation Time In 1156 Time Out 1210 Minutes 14 Petrona Galloway OT Patient's Occupational Therapy Plan of Care supervision is transferred to a [facility] Occupational Therapist. Goals and/or treatment plan was established in collaboration with patient/family/other representatives. [1] Past Medical History: Diagnosis Date Coronary artery disease Diabetes mellitus (HCC) Erectile dysfunction Hyperlipidemia Hypertension Neuropathy LILA (obstructive sleep apnea) non compliant [2] Past Surgical History: Procedure Laterality Date ACHILLES TENDON SURGERY Right COLONOSCOPY CORONARY ANGIOPLASTY 05/2012 CORONARY STENT PLACEMENT x3 [facility] 03-06-2025 Consult note Associated Order (s): IP CONSULT TO DIETITIAN Nutrition Assessment Type and Reason for Visit: Initial, Consult, Patient Education (S/p Open Heart) Nutrition Recommendations/Plan: Recommend continue a Regular, 5 CHO diet. No indication for ONS at this time. RD discussed heart healthy & diabetic diet with patient, however pt somewhat resistant d/t pre-conceived health beliefs. He prefers a 'homeopathic' approach to health. He accepted written handout. Able to discuss CHO intake and BG trends but pt ended interview d/t disagreeing with some of the education. Monitor weight, labs, I/Os, skin integrity and overall nutrition status. RD to follow up weekly. 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 He recently saw Cardiology 01/19/25 for c/o chest discomfort with exertion. S/p OP cardiac cath on 02/07/2025 which demonstrated severe triple-vessel CAD with LV dysfunction. Pt is now s/p CABGx3, KWAME and LEVH with Dr. Lane on 03/04. Endocrinology was consulted 03/04 for stress hyperglycemia in the setting of T2DM w/ A1c 11.7 (02/24/25)--started insulin gtt. He also required Nitroglycerin gtt for BP control overnight but both Nitro and Insulin gtts discontinued 03/05. Pt was extubated post-op to 2L NC and his diet was advanced to Regular, 5 CHO. Pt having flatus but no BM yet. Per Endocrinology, pt uses Dexcom G7 at home. In the past he was on metformin, Jardiance and Trulicity but these were discontinued by pt. He will be discharged on basal bolus insulin. Pt ate >76% x [address] visited pt this AM to discuss diabetic diet and heart healthy diet. 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 He also will occasionally fast for 24 hours. He also prefers homeopathic approaches to health and is not a big fan of doctors. He has lost weight in the past by drinking a lot of smoothies. RD discussed having regular meal/snack times for better BG control, as well as avoiding fasting for prolonged periods of time. Discussed foods with carbs (including smoothies) but pt reports he does not eat bread, rice or pasta. Denies snacking on crackers, chips or pretzels. Reports he used to drink zero sugar pop but states they spike his blood sugar. Pt was somewhat resistant to diet education d/t pre-conceived health beliefs and he ended the interview, stating peace out. He also asked this RD to provide him with some chew (tobacco). He accepted Heart Healthy Consistent Carbohydrate Nutrition Therapy handout. Denied questions at this time. Estimated Daily Nutrient Needs: Energy Requirements Based On: Kcal/kg Weight Used for Energy Requirements: [place] Weight for Energy Calculation (kg): 73 kg Total Energy Requirements (kcals/day): 25-30 kcal/day = 8578-5689 kcal/day Weight Used for Protein Requirements: [place] Weight in Kg Used for Protein Requirements: 73 kg Estimated Total Protein (g/day): 1.0-1.2 g/kg = 73-88 g/day Estimated Daily Total Fluid (ml/day): per MD Nutrition Related Findings: Labs: BG 215/197/173, A1c 11.7 (02/24/25), Meds reviewed Orientation Level: Oriented X4, Cognition: Appropriate judgement, Appropriate safety awareness, Follows commands, Best Verbal Response: Oriented, Patient Behaviors/Mood: Calm, Cooperative Ghulam Scale Score: 20. Wound Type: Surgical Incision Net IO Since Admission: 1,886 mL [03/06/25 0928] Gastrointestinal (WDL): Exceptions to WDL Bowel Sounds (All Quadrants): Active Edema: , RUE Edema: None, LUE Edema: None, RLE Edema: Unable to assess, LLE Edema: None Oxygen Therapy: None (Room air), Current Nutrition Therapies: Adult diet Regular; 5 carb choices (75 gm/meal) Current Oral Intake Average Meal Intake: 76-100% Average Supplements Intake: None Ordered Anthropometric Measures: Height: 175.3 cm (5' 9.02) Current Body Weight: 91.5 kg (201 lb 11.5 oz) (03/05 bed) Admission Body Weight: 88.9 kg (196 lb) (03/04 stated) Usual Body Weight: (Per chart: 02/09/25 194#, 01/19/25 202#, 10/15/23 205#) [place] Body Weight (lbs) (Calculated): 160 lbs [place] Body Weight (Kg) (Calculated): 73 kg % [place] Body Weight (Calculated): 126.1 % BMI (kg/m2) (Calculated): 29.8 Weight Adjustment For: No Adjustment BMI Categories: Overweight (BMI 25.0-29.9) Nutrition Diagnosis: Food & Nutrition-related knowledge deficit related to endocrine dysfuntion, cardiac dysfunction as evidenced by lab values (A1c 11.7, s/p open heart surgery for CAD) Nutrition Interventions: Nutrition Education/Counseling: Survival skills/brief education completed (Diabetic and Heart Healthy Diet discussion and handout) Coordination of Nutrition Care: Continue to monitor while inpatient Educated on Heart Healthy and Diabetic Diet Learners: Patient Readiness: Acceptance at first, then declined Method: Explanation and Handout Response: No Evidence of Learning Goals: Goals: PO intake 75% or greater, by next RD assessment Nutrition Monitoring and Evaluation: Behavioral-Environmental Outcomes: Readiness for Change Food/Nutrient Intake Outcomes: Food and Nutrient Intake Physical Signs/Symptoms Outcomes: Biochemical Data, Nutrition Focused Physical Findings, Weight, GI Status, Fluid Status or Edema, Hemodynamic Status, Meal Time Behavior Discharge Planning: Recommend pursue outpatient nutrition counseling Tatum Rae RD Contact: *[phone] [facility] 03-06-2025 Note Nutrition Assessment Type and Reason for Visit: Initial, Consult, Patient Education (S/p Open Heart) Nutrition Recommendations/Plan: Recommend continue a Regular, 5 CHO diet. No indication for ONS at this time. RD discussed heart healthy & diabetic diet with patient, however pt somewhat resistant d/t pre-conceived health beliefs. He prefers a 'homeopathic' approach to health. He accepted written handout. Able to discuss CHO intake and BG trends but pt ended interview d/t disagreeing with some of the education. Monitor weight, labs, I/Os, skin integrity and overall nutrition status. RD to follow up weekly. 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 He recently saw Cardiology 01/19/25 for c/o chest discomfort with exertion. S/p OP cardiac cath on 02/07/2025 which demonstrated severe triple-vessel CAD with LV dysfunction. Pt is now s/p CABGx3, KWAME and LEVH with Dr. Lane on 03/04. Endocrinology was consulted 03/04 for stress hyperglycemia in the setting of T2DM w/ A1c 11.7 (02/24/25)--started insulin gtt. He also required Nitroglycerin gtt for BP control overnight but both Nitro and Insulin gtts discontinued 03/05. Pt was extubated post-op to 2L NC and his diet was advanced to Regular, 5 CHO. Pt having flatus but no BM yet. Per Endocrinology, pt uses Dexcom G7 at home. In the past he was on metformin, Jardiance and Trulicity but these were discontinued by pt. He will be discharged on basal bolus insulin. Pt ate >76% x [address] visited pt this AM to discuss diabetic diet and heart healthy diet. 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 He also will occasionally fast for 24 hours. He also prefers homeopathic approaches to health and is not a big fan of doctors. He has lost weight in the past by drinking a lot of smoothies. RD discussed having regular meal/snack times for better BG control, as well as avoiding fasting for prolonged periods of time. Discussed foods with carbs (including smoothies) but pt reports he does not eat bread, rice or pasta.Denies snacking on crackers, chips or pretzels. Reports he used to drink zero sugar pop but states they spike his blood sugar. Pt was somewhat resistant to diet education d/t pre-conceived health beliefs and he ended the interview, stating peace out. He also asked this RD to provide him with some chew (tobacco). He accepted Heart Healthy Consistent Carbohydrate Nutrition Therapy handout. Denied questions at this time. Estimated Daily Nutrient Needs: Energy Requirements Based On: Kcal/kg Weight Used for Energy Requirements: [place] Weight for Energy Calculation (kg): 73 kg Total Energy Requirements (kcals/day): 25-30 kcal/day = 9650-2460 kcal/day Weight Used for Protein Requirements: [place] Weight in Kg Used for Protein Requirements: 73 kg Estimated Total Protein (g/day): 1.0-1.2 g/kg = 73-88 g/day Estimated Daily Total Fluid (ml/day): per MD Nutrition Related Findings: Labs: BG 215/197/173, A1c 11.7 (02/24/25), Meds reviewed Orientation Level: Oriented X4, Cognition: Appropriate judgement, Appropriate safety awareness, Follows commands, Best Verbal Response: Oriented, Patient Behaviors/Mood: Calm, Cooperative Ghulam Scale Score: 20. Wound Type: Surgical Incision Net IO Since Admission: 1,886 mL [03/06/25 0928] Gastrointestinal (WDL): Exceptions to WDL Bowel Sounds (All Quadrants): Active Edema: , RUE Edema: None, LUE Edema: None, RLE Edema: Unable to assess, LLE Edema: None Oxygen Therapy: None (Room air), Current Nutrition Therapies: Adult diet Regular; 5 carb choices (75 gm/meal) Current Oral Intake Average Meal Intake: 76-100% Average Supplements Intake: None Ordered Anthropometric Measures: Height: 175.3 cm (5' 9.02) Current Body Weight: 91.5 kg (201 lb 11.5 oz) (03/05 bed) Admission Body Weight: 88.9 kg (196 lb) (03/04 stated) Usual Body Weight: (Per chart: 02/09/25 194#, 01/19/25 202#, 10/15/23 205#) [place] Body Weight (lbs) (Calculated): 160 lbs [place] Body Weight (Kg) (Calculated): 73 kg % [place] Body Weight (Calculated): 126.1 % BMI (kg/m2) (Calculated): 29.8 Weight Adjustment For: No Adjustment BMI Categories: Overweight (BMI 25.0-29.9) Nutrition Diagnosis: Food & Nutrition-related knowledge deficit related to endocrine dysfuntion, cardiac dysfunction as evidenced by lab values (A1c 11.7, s/p open heart surgery for CAD) Nutrition (more content not included)... [facility] 03-05-2025 Note PHYSICAL THERAPY [facility] Initial Evaluation Name/MRN: Wallace Turk ([id number]) Evaluation Date: 03/05/2025 Date of : 1965 Admission Date: 03/04/2025 5:22 AM Age: 59 y.o. Room/Bed: T1-123/T1-123 A Discharge Recommendation: Home with assist PRN Equipment Needed: No Assessment IMPRESSION: Pt admitted with mvCAD, s/p CABG x 3. Pt presents with post op generalized weakness and pain limiting his mobility at this time. Pt ambulated functional distance with Nezzie. Reported difficulty taking deep breaths due to pain from incision site. Mobility should improve as pain is controlled. Anticipate discharge to home with assist as needed. Admitting Diagnosis: mvCAD, s/p CABG x 3 03/04 Prognosis: fair Performance Deficits /Impairments: Increased Pain, Decreased Functional Mobility, Decreased ADL status, Decreased Strength, Decreased Endurance, and Decreased Balance Decision Making: Medium Complexity Subjective Pt in chair. Agree with PT treatment. RN cleared for PT. Pain: Day-Stephenson Pain Ratin = Hurts even more Pain Location: sternum and chest tube site Past Medical History: Medical History[1] Past Surgical History: Surgical History[2] Admission Diagnosis: Patient Active Problem List Diagnosis Date Noted CAD in [place] artery 02/28/2025 Medical Precautions: No active isolations Proper PPE donned/doffed in accordance with facility standards. Fall Risk: Khan Fall Risk Score: 60 (High Risk) Precautions/Restrictions: Sternal Precautions: No Pushing, No Pulling, No Lifting Greater Than 10 lbs and No lifting greater than 10 lbs. Ok for modified UE precautions using Keep Your Move in the Tube technique Lines/Drains/Airways: tele, CVC, chest tube Family/Caregiver Present: spouse Overall Cognitive Status: WNL Overall Orientation Status: Oriented x4 Vision: Not Assessed Hearing: normal Social/Functional History Patient admitted from home. Lives With: Spouse Type of Home: single family home Home Layout: Two Level Home and Able to Live on Main Level Home Access: Stairs to Enter without Rails (# of stairs: 3) Bathroom Shower/Tub: Toilet: N/A Home Equipment: none Homemaking Responsibilities: Independent Receives Help From: None Active Cloth Printing Back Tender: Yes Prior Level of Function Prior Level of ADL Function: Independent Prior Level of Mobility: Independent; Device: None Prior Level of Transfers: Independent Objective Lower Extremity Assessment AROM: WFL PROM: WFL Strength: Lower Extremity Strength Right Left Hip Flexion 4 4 Hip Abduction Hip Extension Hip External Rotation (ER) Hip Internal Rotation (IR) Knee Extension 5 5 Knee Flexion Ankle Dorsiflexion (DF) Ankle Plantarflexion (PF) 3+ 3+ Inversion Eversion Sensation: WNL Balance: Balance During Session: Posture: fair Sitting - Static: Supervision Sitting - Dynamic: Supervision Standing - Static: SBA Standing - Dynamic: SBA Bed Mobility: Pt up in chair upon arrival Transfers Sit to stand: Min Assist Stand to sit: Min Assist Stand pivot: Contact Guard Ambulation Ambulation 1 Assistive device(s) used: Nezzie Assist level: Min Assist Distance (ft): 30 Quality of gait: uneven step length, slow gina Ambulation 2 Assistive device(s) used: Nezzie Assist level: Contact Guard Distance (ft): 100 Quality of gait: uneven step length, slow gina Standing, weight shifting for pre-gait, breathing ex. IS x 2 P&C ex 1-4, 10 reps. Rest between. Outcome Measures AM-PAC How much HELP from another person do you currently need Turning from your back to your side while in a flat bed without using bedrails?: A Lot Moving from lying on your back to sitting on the side of a flat bed without using bedrails?: A Lot Moving to and from a bed to a chair (including a wheelchair)?: A Little Standing up from a chair using your arms (wheelchair or bedside chair)?: A Little Walking in a hospital room?: A Little Stair climbing assessed?: No AM-PAC Inpatient Mobility Raw Score (No Stairs) : 13 [facility] Score: Walked 25 ft or more (i.e. walked outside of room) Plan Pt would benefit from skilled acute PT services to address Strengthening, Gait Training, Balance Training, Functional Mobility Training, Endurance Training, and Stair Training. Frequency: 5x/weekfor 4 weeks Barriers: Pain, Impaired balance, and Decreased endurance Safety/Education Safety Safety Devices in place: call light within reach, left in chair, nurse notified, no alarms engaged upon entry, and spouse at bed side Restraints: No Education Education Given To: patient Education Provided: PT Role, PT Goals, and Plan of Care Education Method: Verbal Barriers to Learning: Education Outcome: Verbalized Understanding and Continued Education Needed Goals Patient Stated Goal: To go home. Encounter Problems Encounter Problems (Active) Cardiac Patient will perform bed mobil (more content not included)... [facility] 03-04-2025 Note [facility] Respiratory Care Department Progress Note Spontaneous Awakening Trial Safety Screen Spontaneous Awakening Trial (SAT - RN) : Proceed with SAT - No exclusion criteria met (03/04/251223) Wean Screen SpO2>/=88%: Yes (03/04/251223) FiO2 PEEP HR <140 BPM: Yes (03/04/251223) RR MAP >/= 65mmHg: Yes (03/04/251223) Arterial pH >7.30: Yes (03/04/251223) Safety Screen Spontaneous Breathing Trial (SBT - RT) : Proceed with SBT - No exclusion criteria met (03/04/251223) Spontaneous Breathing Trial Weaning Start Time: 1522 (03/04/25 1609) Weaning Tidal Volume: 473 mL (03/04/25 1609) Weaning Respiratory Rate: 20 (03/04/25 1609) Spontaneous Minute Volume (MV): 8.26 (03/04/25 1609) Total RSBI: 42.28 (03/04/25 1609) Weaning Stop Time: 1609 (03/04/25 160) Weaning Duration (min): 31 (03/04/25 160) Spontaneous Breathing Trial (SBT - RT) Outcome: SBT Passed (03/04/251608) Vent Settings Vent Mode: Spontaneous (03/04/25 1609) Mandatory Type: VC+ (03/04/25 122) Resp Rate (Set): 16 (08/22/25 1224) Vt (Set, mL): 430 mL (03/04/25 1224) FiO2 (%): 50 % (03/04/25 1609) PEEP/CPAP (cm H2O): 8 cm H20 (03/04/25 1609) Inspiratory Time (sec): 0.9 sec (03/04/25 1224) Vitals Heart Rate: 89 (03/04/25 1609) Resp: 22 (03/04/25 1609) SpO2: 100 % (03/04/25 1609) Suctioning/Secretions ABG results Recent Labs 03/04/25 1131 03/04/25 1233 PHART 7.390 7.385 APO9CNG 37.0 36.3 PO2ART 193.3* 187.1* [id number] 21.9 21.2 [id number] Ventilator Ventilator Ventilator Does this patient meet criteria for termination of mechanical ventilation Yes- Notified physician below Name of physician notified via secure chat or in person : DR. Diaz (NA if patient did not meet criteria) Comments: Thank you for involving Respiratory in the care of this patient, [facility] 03-04-2025 Consult note Associated Order (s): IP CONSULT TO CARDIAC REHAB Received referral and reviewed chart. Unable to discuss Phase II Cardiopulmonary Rehab Referral with Wallace Turk at this time. Will follow to discuss program when appropriate. Patient will be contacted at home if discharged prior to discussion. [facility] 03-04-2025 Note Received referral an d reviewed chart. Unable to discuss Phase II Cardiopulmonary Rehab Referral with Wallace Turk at this time. Will follow to discuss program when appropriate. Patient will be contacted at home if discharged prior to discussion. [facility] 03-04-2025 Note Patient: Wallace Poe rd Procedure Summary Date: 03/04/25 Room / Location: [facility] Operating Room Anesthesia Start: 0707 Anesthesia Stop: 1228 Procedures: CORONARY ARTERY BYPASS GRAFT (Chest) ECHOCARDIOGRAM, TRANSESOPHAGEAL Diagnosis: Atherosclerotic heart disease of [place] coronary artery with other forms of angina pectoris (HCC) Surgeons: Jewel Lane MD Responsible Provider: Humble Espinoza DO Anesthesia Type: general ASA Status: 4 Anesthesia Type: general Vitals Value Taken Time BP 127/56 03/04/25 12:30 Temp 98 03/04/25 12:30 Pulse 65 03/04/25 12:29 Resp 15 03/04/25 12:29 SpO2 100 % 03/04/25 12:29 Vitals shown include unfiled device data. Anesthesia Post Evaluation Patient location during evaluation: PACU Patient participation: waiting for patient participation Level of consciousness: sedated and sleepy Pain management: satisfactory to patient Airway patency: patent Dental Injury: no Cardiovascular status: acceptable, blood pressure returned to baseline and hemodynamically stable Respiratory status: acceptable and spontaneous ventilation Hydration status: euvolemic Nausea/Vomiting: controlled No notable events documented. Patient can be discharged once all PACU criteria has been met. [facility] 03-04-2025 Note Patient: Wallace Poe rd Procedure Summary Date: 03/04/25 Room / Location: [address] Operating Room Anesthesia Start: 706 Anesthesia Stop: 8 Procedures: CORONARY ARTERY BYPASS GRAFT (Chest) ECHOCARDIOGRAM, TRANSESOPHAGEAL Diagnosis: Atherosclerotic heart disease of [place] coronary artery with other forms of angina pectoris (HCC) Surgeons: Jewel Lane MD Responsible Provider: Humble Espinoza DO Anesthesia Type: general ASA Status: 4 Anesthesia Type: general Vitals Value Taken Time BP 127/56 03/04/25 12:29 Temp 98 03/04/25 12:29 Pulse 66 03/04/25 12:28 Resp 14 03/04/25 12:28 SpO2 100 % 03/04/25 12:28 Vitals shown include unfiled device data. Anesthesia Post Evaluation Patient participation: complete - patient cannot participate Regional recovery expected within 48 hours: not expected Level of consciousness: sedated and sleepy Pain management: satisfactory to patient Multimodal analgesia pain management approach Airway patency: patent Two or more strategies used to mitigate risk of obstructive sleep apnea Respiratory status: acceptable Cardiovascular status: acceptable Hydration status: acceptable No notable events documented. MIPS #[id number] PONV Patient received an inhalational anesthetic (4554F) Patient does not exhibit three or more risk factors for PONV (X0430)) MIPS # 424 Perioperative Temperature Management Anesthesia time was 60 minutes or longer (4255F) Anesthesai administered was General (inhalational or TIVA) or Neuraxial block (X0424) At least one body temperature greater than 95.8F/35.5C achieved within the 30 mins immediately prior to or the 15 minutes immediately following anesthesia end time (G9771) MIPS #477 Multimodal Pain Management Not emergent case Patient was not administered multimodal pain management (G2149) Intubated patient (G2149) MIPS #404 Anesthesiology Smoking Abstinence The patient is not a current smoker (e.g. cigarette, cigar, pipe, e-cigarette/vaping/marijuana) If no stop here (XX404) I completed my handoff to the receiving clinician during which we: 1. Identified the patient 2. Identified the responsible provider 3. Reviewed the pertinent medical history 4. Discussed the surgical course 5. Reviewed intra-op anesthesia management and issues during anesthesia 6. Set expectations for post-procedure period 7. Allowed opportunity for questions and acknowledgement of understanding. [facility] 03-04-2025 Consult note Associated Order (s): IP CONSULT TO ENDOCRINOLOGY Department of Internal Medicine Division of Endocrinology, Diabetes, & Metabolism Endocrinology Note Patient Name: Wallace Turk : 1965 AGE: 59 y.o. Room[facility]Bed: [facility] A Admission Date: 03/04/2025 Visit Date: 03/04/2025 Reason for Endocrine Consult: post heart Provider/Team Requesting Consult: cts PCP: No primary care provider on file. Outpt Incident Response Consultant: Yes Ellis Marquez ASSESSMENT: Stress hyperglycemia DM2 with hyperglycemia and halfway insulin, A1c 11.7% DM2 with polyneuropathy CABGx3 CAD HLD/HTN PLAN: Continue on insulin gtt per protocol ICU goal <180 GMF goal <150 POCT BG ACHS-q1 on insulin gtt Hypoglycemia management per protocol Carb controlled diet ANTICIPATED ENDOCRINE HOME GOING RECOMMENDATIONS: Optimized for Discharge from Endocrine standpoint: No Home Going Endocrine Rx Recommendations-- Lantus pens current dose Humalog pens current dose Clara pen needles [id number] Dexcom sensors Outpt Follow Up-- 05-27 Richard Marquez SUBJECTIVE/HPI: CHIEF COMPLAINT: No chief complaint on file. S/p CABGx3 Patient known to endcrine team outpatient for DM2- see prior notes. Recently started on home insulin outpatient. No noted hx of thyroid disease. Interval events: BGL below Stable currently on insulin gtt VSS, NPO Remains intubated/ sedated at this time Will clarify history once extubated- tomorrow Sees endocrine outpatient - on home insulin pens CT in place On propofol Pressor support as needed Spoke with team Type of DM: 2 Onset of DM: 2013 Home DM Medication Regimen: dexcom g7, lantus 12, humalog -per chart DM control (last A1c/glucose data): Lab Results Component Value Date HGBA1C 11.7 (A) 02/24/2025 Glucose Date/Time Value Ref Range Status 03/04/2025 05:49 AM 149 (H) 70 - 100 mg/dL Final 02/28/2025 06:08 AM 202 (H) 70 - 100 mg/dL Final 02/24/2025 11:08 AM 230 (A) 70 - 100 mg/dL Final Review of Systems ROS negative except for those mentioned in HPI. OBJECTIVE: Vitals: 03/04/25 0550 03/04/25 0743 BP: (!) 141/85 Pulse: 64 Resp: 16 Temp: (!) 35.7 C (96.3 F) TempSrc: Tympanic SpO2: 100% Weight: 196 lb (88.9 kg) 196 lb (88.9 kg) Height: 5' 9 (1.753 m) 5' 9 (1.753 m) Physical Exam Vitals and nursing note reviewed. Constitutional: General: He is sleeping. He is not in acute distress. Appearance: He is overweight. He is ill-appearing. He is not toxic-appearing. Interventions: He is sedated and intubated. HENT: Mouth/Throat: Mouth: Mucous membranes are moist. Cardiovascular: Rate and Rhythm: Normal rate. Pulmonary: Effort: Pulmonary effort is normal. No respiratory distress. He is intubated. Abdominal: Tenderness: There is no guarding. Musculoskeletal: Cervical back: Normal range of motion. Skin: General: Skin is warm and dry. Coloration: Skin is pale. Comments: Intact incision midline 24 hour intake/output: Intake/Output Summary (Last 24 hours) at 03/04/2025 1220 Last data filed at 03/04/2025 1158 Gross per 24 hour Intake 2154 ml Output 930 ml Net 1224 ml Diet: NPO diet Medications (as per EMR): HomeMeds: Current Outpatient Medications Medication Instructions Alcohol Swabs pads For daily blood sugar monitoring 4 times daily for Continuous Glucose Monitor failure aspirin 81 mg, Daily atorvastatin (LIPITOR) 40 mg, Daily Blood Glucose Monitoring Suppl (True Metrix Meter) w/Device kit 1 each, Does not apply, 4 times daily, For daily blood sugar monitoring 4 times daily for Continuous Glucose Monitor failure chlorhexidine (Peridex) 0.12 % solution 15 mL, Mouth/Throat, Once, Swish for 30 seconds and spit out the night before surgery. Do not swallow. Continuous Glucose Sensor (Invisible G7 Sensor) misc Replace with a new sensor every 10 days. glucagon 1 mg, SubCUTAneous, Once PRN glucose blood (True Metrix Blood Glucose Test) test strip For daily blood sugar monitoring 4 times daily for Continuous Glucose Monitor failure insulin glargine (LANTUS) 12 Units, SubCUTAneous, Nightly insulin lispro (HUMALOG) 4 Units, SubCUTAneous, 3 times daily before meals insulin pen needle 32G X 4 MM misc 4 times daily Lancets 33G misc 1 each, Does not apply, 4 times daily, For daily blood sugar monitoring 4 times daily for Continuous Glucose Monitor failure metoprolol succinate XL (TOPROL-XL) 50 mg, Daily mupirocin (Bactroban) 2 % ointment Apply liberal amount per nostril the night before surgery and then again the morning of surgery NON FORMULARY STOPPED TAKING PER DR LANE BEFORE SURGERY May peralta, berberine, salon cinnamon, multivitamin- Alive, vitamin d3 w/ k2, Scheduled Meds:Scheduled Meds[1] Continuous Infusions:Continuous Meds[2] PRN Meds:PRN Meds[3] Diagnostic Workup: I reviewed pertinent Laboratory results, Radiographic results, and Other Clinical Notes at the time of today's encounter. Labs: No components found for: LABA1C No components found for: EAG No results found for: NA, K, CL, CO2, BUN, CREATININE, GLUCOSE, CALCIUM Lab Results Component Value Date CHOL 146 02/25/2025 Lab Results Component Value Date TRIG 99 02/25/2025 Lab Results Component Value Date HDL 45 (A) 02/25/2025 Lab Results Component Value Date LDLCALC 83 02/25/2025 No results found for: VLDL No results found for: CHOLHDLRATIO No results found for: [id number] Lab Results Component Value Date TSH 1.79 02/25/2025 Radiology reportsas per the Radiologist Radiology: POCT glucose meter Result Date: 03/04/2025 Performed by: [facility], [address] [place] [address] CLIA ID: [id number] History/Other: Past Medical History: Medical History[4] Past Surgical History: Surgical History[5] Allergy(ies): Allergies[6] Family History: Family History[7] Social History: Social History[8] Portions of the information within this encounter were entered using an electronic dictation system. Best attempts were made to edit/proofread the information prior to note completion. Despite the review of information, some errors may remain. If there are questions related to the information contained within the note please contact the signing physician directly. I spent 35 minutes with the pt which involved coordination of care, medical evaluation, review of records, and/or counseling of the pt regarding his/her condition/disease state/prognosis on the date of this note. [1] acetaminophen, 1,000 mg, Oral, q8h ceFAZolin, 2,000 mg, IntraVENous, q8h [START ON 03/05/2025] chlorhexidine, , Topical, Daily chlorhexidine, 15 mL, Mouth/Throat, BID Lidocaine, 1 patch, Topical, Daily mupirocin, , Nasal, BID [START ON 03/05/2025] pantoprazole, 40 mg, IntraVENous, Daily polyethylene glycol (PEG) 3350, 17 g, Oral, Daily senna-docusate sodium, 2 tablet, Oral, Nightly sodium chloride 0.9%, 5-40 mL, IntraCATHeter, q8h sugammadex, 4 mg/kg, IntraVENous, Once [2] EPINEPHrine, 0.01-0.2 mcg/kg/min insulin regular, 0.5-50 Units/hr lactated ringers, 250 mL nitroglycerin, 5-200 mcg/min propofol, 5-50 mcg/kg/min sodium chloride, 20 mL/hr sodium chloride, 50 mL/hr, Last Rate: Stopped (03/04/25 1158) [3] PRN medications: albumin human, calcium gluconate, dextrose, dextrose, EPINEPHrine, glucagon (rDNA), glucose, ipratropium-albuterol, lactated ringers, magnesium hydroxide, magnesium sulfate OR magnesium sulfate, morphine sulfate OR morphine sulfate, nitroglycerin, ondansetron ODT OR ondansetron, oxyCODONE OR oxyCODONE, potassium chloride OR potassium chloride OR potassium chloride, [START ON 03/05/2025] potassium chloride CR, sodium chloride 0.9% [4] Past Medical History: Diagnosis Date Coronary artery disease Diabetes mellitus (HCC) Erectile dysfunction Hyperlipidemia Hypertension Neuropathy LILA (obstructive sleep apnea) non compliant [5] Past Surgical History: Procedure Laterality Date ACHILLES TENDON SURGERY Right COLONOSCOPY CORONARY ANGIOPLASTY 05/2012 CORONARY STENT PLACEMENT x3 [6] No Known Allergies [7] Family History Problem Relation Name Age of Onset Diabetes Mother Coronary artery disease Mother Heart attack Mother Stroke Mother Diabetes Father [8] Social History Tobacco Use Smoking status: Never Smokeless tobacco: Current Types: Chew Vaping Use Vaping status: Never Used Substance Use Topics Alcohol use: Yes Alcohol/week: 2.0 standard drinks of alcohol Types: 2 Cans of beer per week Drug use: Not Currently Cosigned by Martell Guthrie MD at 03/04/2025 2:33 PM EDT Associated attestation - Martell Guthrie MD - 03/04/2025 2:33 PM EDT I have personally performed a face to face diagnostic evaluation on this patient. In addition, I have reviewed the resident's/CLINICAL BIOSTATISTICIAN/SOLAR SYSTEMS DESIGNER's care plan and agree with those findings I have performed a substantive portion of the the medical decision making. My findings are as follows: Patient has type 2 diabetes at least since 2014 Was seen recently at our office was started on basal bolus insulin Uses Dexcom G7 at home Past he was on metformin, Jardiance, Trulicity but they were discontinued by patient Previous michelle and islet cell antibodies were negative Patient is currently intubated, on insulin drip Lab Results Component Value Date HGBA1C 11.7 (A) 02/24/2025 Vitals: BP (!) 141/85 Pulse 61 Temp (!) 35.5 C (95.9 F) Resp 17 Ht 5' 9 (1.753 m) Wt 196 lb (88.9 kg) SpO2 100% BMI 28.94 kg/m Constitutional: Intubated Respiratory: No respiratory distress Cardiovascular System: RNo lower extremity edema A/P Type 2 diabetes with hyperglycemia with long-term insulin use Type 2 diabetes with cardiac complication Overweight Body mass index is 28.94 kg/m . Continue insulin drip BG Q 1 hour per protocol Will switch insulin drip to sc insulin in 24 to 48 hours. Patient will be discharged on basal bolus insulin We will follow-up closely Old records including available PCP, ED notes and or other specialists notes are reviewed. LABs and/or imaging are reviewed as detailed in the resident's/CLINICAL BIOSTATISTICIAN/SOLAR SYSTEMS DESIGNER's note [facility] 03-04-2025 Consult note Formatting of th is note is different from the original. Images from the original note were not included. [facility]: Critical Care Consultation Note Date: 03/04/25 PATIENT NAME: Wallace Turk : 1965 (59 y.o.) Reason for Consult: Critical Care & Vent Management HPI: 59-year-old male who was seen in the OP setting for CABG evaluation. Patient has history of CAD status post PCI of the LAD in May 2012, hypertension, type 2 diabetes, and hyperlipidemia. Recently saw cardiology January 19, 2025 with complaints of chest discomfort with exertion. An outpatient cath was scheduled and he underwent cardiac cath on 02/07/2025 which demonstrated severe triple-vessel CAD with LV dysfunction. Revascularization was discussed and patient consented he was taken to the operating room on 03/04/[address]. Surgery: 03/04/25: s/p CABGx3 (MEADE-LAD, SVG-OM2, SVG-diag2), KWAME, LEVH with Dr. Lane Interval History: 03/04/25: POD #0: Patient arrived to the unit, intubated and sedated. Surgical hand off completed below. Surgery Hand Off: Arrival Time in CTVICU: 1218 Complications/Pertinent Events: Last Paralytic: 1120 Medications given in route: Gtts OR report Propofol: 25mcg/kg/min Insulin: 2units/hr Amicar: 29 Current gtts upon arrival Propofol: 50mcg/kg/min Insulin: 2units/hr Amicar: 29 Devices: Epicardial wires: yes [x] no [] IABP: yes [] no [x] LVAD: yes [] no [x] Speed: Equipment: Back up controller yes [] no [x] Blood Transfusions Intra Op: yes [] no [x] CellSaver: 400mL Vital Signs including Cardiac Numbers (if indicated) at Conclusion of Hand-off OR CTVICU CO NO SWAN CI CVP SVR PAP Additional Interventions/Misc during Handoff Review of Systems Unable to perform ROS: Intubated Allergies: Patient has no known allergies. Past Medical History: has a past medical history of Coronary artery disease, Diabetes mellitus (HCC), Erectile dysfunction, Hyperlipidemia, Hypertension, Neuropathy, and LILA (obstructive sleep apnea). Past Surgical History: has a past surgical history that includes Coronary angioplasty (05/2012); Coronary stent placement; Achilles tendon surgery (Right); and Colonoscopy. Social History: reports that he has never smoked. His smokeless tobacco use includes chew. He reports current alcohol use of about 2.0 standard drinks of alcohol per week. He reports that he does not currently use drugs. Family History: family history includes Coronary artery disease in his mother; Diabetes in his father and mother; Heart attack in his mother; Stroke in his mother. Medications: Prior to Admission medications Medication Sig Start Date End Date Taking? Authorizing Provider Alcohol Swabs pads For daily blood sugar monitoring 4 times daily for Continuous Glucose Monitor failure 02/24/25 Yes Richard Marquez PA-C aspirin 81 MG EC tablet Take 81 mg by mouth daily. Yes Historical Provider, atorvastatin (Lipitor) 40 MG tablet Take 40 mg by mouth daily. Yes Historical Provider, Blood Glucose Monitoring Suppl (True Metrix Meter) w/Device kit 1 each 4 times daily. For daily blood sugar monitoring 4 times daily for Continuous Glucose Monitor failure 02/24/25 02/24/26 Yes Richard Marquez PA-C chlorhexidine (Peridex) 0.12 % solution Use 15 mL in the mouth or throat Once for 1 dose. Swish for 30 seconds and spit out the night before surgery. Do not swallow. 02/21/25 03/04/25 Yes TROY Fregoso CNP Continuous Glucose Sensor (Dexcom G7 Sensor) misc Replace with a new sensor every 10 days. 02/24/25 Yes Richard Marquez PA-C glucose blood (True Metrix Blood Glucose Test) test strip For daily blood sugar monitoring 4 times daily for Continuous Glucose Monitor failure 02/24/25 Yes Richard Marquez PA-C insulin glargine (Lantus) 100 UNIT/ML pen Inject 12 Units under the skin Nightly. 03/03/25 03/03/26 Yes Richard Marquez PA-C insulin lispro (HumaLOG) 100 UNIT/ML pen injection Inject 4 Units under the skin 3 times daily (before meals). 03/03/25 03/03/26 Yes Richard Marquez PA-C insulin pen needle 32G X 4 MM misc 4 times daily 02/24/25 Yes Richard Marquez PA-C Lancets 33G misc 1 each 4 times daily. For daily blood sugar monitoring 4 times daily for Continuous Glucose Monitor failure 02/24/25 02/24/26 Yes Richard Marquez PA-C metoprolol succinate XL (Toprol-XL) 50 MG 24 hr tablet Take 50 mg by mouth daily. Do not crush or chew. Yes Historical Provider, mupirocin (Bactroban) 2 % ointment Apply liberal amount per nostril the night before surgery and then again the morning of surgery 02/21/25 Yes TROY Fregoso CNP NON FORMULARY STOPPED TAKING PER DR LANE BEFORE SURGERY Lileonidas peralta, berberine, salon cinnamon, multivitamin- Alive, vitamin d3 w/ k2, Yes Historical Provider, glucagon 1 MG injection Inject 1 mL (1 mg) under the skin Once as needed for low blood sugar. Patient not taking: Reported on 03/04/2025 02/24/25 02/24/26 Richard Marquez PA-C insulin glargine (Lantus) 100 UNIT/ML pen Inject 10 Units under the skin Nightly. 02/24/25 03/03/25 Richard Marquez PA-C insulin lispro (HumaLOG) 100 UNIT/ML pen injection Inject 3 Units under the skin 3 times daily (before meals). 02/24/25 03/03/25 Richard Marquez PA-C Objective: BP (!) 141/85 Pulse 64 Temp (!) 35.7 C (96.3 F) (Tympanic) Resp 16 Ht 5' 9 (1.753 m) Wt 196 lb (88.9 kg) SpO2 100% BMI 28.94 kg/m Intake/Output Summary (Last 24 hours) at 03/04/2025 09 Last data filed at 03/04/2025 0908 Gross per 24 hour Intake -- Output 150 ml Net -150 ml Physical Exam Vitals reviewed. Constitutional: Interventions: He is sedated and intubated. HENT: Mouth/Throat: Comments: ETT/OG. Neck: Comments: Central line. Cardiovascular: Rate and Rhythm: Normal rate and regular rhythm. Pulses: Normal pulses. Heart sounds: No murmur heard. Pulmonary: Effort: He is intubated. Breath sounds: No wheezing, rhonchi or rales. Comments: Ventilator assisted. Abdominal: General: There is no distension. Palpations: Abdomen is soft. Comments: Chest tubes. Genitourinary: Comments: [place]. Skin: General: Skin is warm and dry. Capillary Refill: Capillary refill takes less than 2 seconds. Comments: CATY wrap LLE, surgical incisions without swelling or drainage. Diagnostics: Reviewed in EMR Labs: Reviewed in EMR BMP:No results for input(s): NA, K, CL, CO2, BUN, CREATININE, CALCIUM, MG, PHOS in the last 72 hours. CBC: No results for input(s): WBC, HGB, HCT, PLT, MCV, RDW in the last 72 hours. INR: No results for input(s): INR in the last 72 hours. Assessment: MVCAD s/p CABGx3 HTN T2DM HLD Post operative Pulm Management: Normal Post-operative Course Post-operative Atrial Fibrillation: []Yes [x] No Acute blood loss anemia/consumptive thrombocytopenia Plan: - Sugamadex x1 - STAT EKG, CXR - Wean sedation as able, goal RASS -1 to 0 - SAT/SBT when appropriate->extubate - Recheck labs - No [place], okay for VBG if concerns for low CI - Hemodynamic goals: CI >2.0, SBP 90-130 mmHg, MAP 60-75 - PRN Hypertension Nitro gtt -PRN Hypotension CI >2.0 euvolemic with low SVR- Alec gtt CI <2.0 euvolemic - Epinephrine gtt - Temp pacing wires/mode: v-wires to backup - Chest tubes: no air leak or fluctuation noted, suction -20 - Cefazolin - surgical prophy for 5 doses total - Wean to Extubation: Arrival Time in unit: 1218 - Vent: ACVC+, TV 6ml/kg/min, rate 12, fio2 100% PEEP 8 VAP protocol: HOB >30 degrees; peridex BID - Insulin gtt; per endo/protocol - GI prophy: Protonix IV daily Critical Care time spent 30 minutes. The time involved in the performance of this care was exclusive of separately billable procedures, teaching time and treating other patients. The time was spent personally by myself for the following activities: examination of the patient, ordering and/or performing treatment, reviewing the laboratory and radiographic studies, and if applicable, ventilator management and blood gas interpretation. Patient treatment plan and plan of care discuss with Dr. Kobi Ortega Cosigned by Kobi Guerrero MD at 03/04/2025 1:03 PM EDT Associated attestation - Kobi Guerrero MD - 03/04/2025 1:03 PM EDT I have personally performed a face to face diagnostic evaluation on this patient today on 03/04/25. Labs, imaging studies, and electronic medical record notes on [employer] have been reviewed by me. This note documented and discussed by the []chief supply chain officer []Fellow [x] NOELLE reflects my history, exam and medical decision making. I have reviewed and agree with the care plan. Changes were made in the orders as necessary. ROS documentation was reviewed and negative unless otherwise stated in the HPI. My history, exam, assessment and plan are as follows: All reflect current medical decision making from 03/04/25. Physical Exam listed was completed in entirely on 03/04/25 and is unchanged except where noted. Critical care time spent excluding separately billable procedures is 34 minutes. Chief Complaint: Coronary artery disease of [place] artery [place] heart with stable angina pectoris Additional pertinent interval history, ROS, and physical exam findings: Patient seen and examined. Sedated, intubated, pupils symmetric Heart RRR Lungs symmetric air exchange No cyanosis Assessment and Plan: mvCAD 03/04 s/p CABG x 3 Post op vent management Anemia, thrombocytopenia expected post op HTN, HLD [facility]/u CXR and ABG SAT/SBT later today Transfuse prn Status: Critically ill Disposition: Remain in ICU until discharge [facility] 03-04-2025 Note Central Venous Line: Date/Time: 01/30/2025 7:30 AM A central venous line was placed in the Procedural for the following indication(s): Sterility preparation included the following: provider hand hygiene performed prior to central venous catheter insertion, all 5 sterile barriers used (gloves, gown, cap, mask, large sterile drape) during central venous catheter insertion, antiseptic used during central venous catheter insertion and skin prep agent completely dried prior to procedure. Medical reason for not performing maximal sterile barrier technique: no The patient was placed in Trendelenburg position. Right The site was prepped with Chlorhexidine. Size: 8.5 Fr Catheter type: introducer with Central Venous Catheter Number of Lumens: triple lumen During the procedure, the following specific steps were taken: target vein identified, needle advanced into vein and blood aspirated and guidewire advanced into vein.The procedure was performed using ultrasound guidance . Sterile gel and probe cover used in ultrasound-guided central venous catheter insertion. Intravenous verification was obtained by ultrasound. Post insertion care included: all ports aspirated, all ports flushed easily, guidewire removed intact, Biopatch applied, line sutured in place and dressing applied. During the procedure the patient experienced: patient tolerated procedure well with no complications. Staffing Performed: anesthesiologist and FEATHER BONER Anesthesiologist: Humble Espinoza DO Resident/FEATHER BONER: TROY Gould CRNA [facility] 03-04-2025 Note Arterial Line: Date/Time: 03/04/2025 7:08 AM An arterial line was placed in the Procedural for the following indication(s): continuous blood pressure monitoring and blood sampling needed. The procedure was performed using ultrasound guidance . A 20 gauge (size), 1 and 3/4 inch (length), Arrow (type) catheter was placed, into the Left radial artery, secured by Tegaderm and tape. Events: patient tolerated procedure well with no complications. Staffing Performed: anesthesiologist and FEATHER BONER Anesthesiologist: Humble Espinoza DO Resident/FEATHER BONER: TROY Gould CRNA [facility] 03-04-2025 Note Airway Date/Time: 03/04/2025 7:12 AM Reason: scheduled Airway not difficult General Information and Staff Patient location during procedure: Procedural Resident/FEATHER BONER: TROY Gould CRNA Performed: FEATHER BONER Patient Condition Indications for airway management: anesthesia and airway protection Patient position: sniffing MILS maintained throughout Sedation level: Asleep Final Airway Details Preoxygenated: yes Final airway type: endotracheal airway Successful airway: ETT Cuffed: yes Successful intubation technique: direct laryngoscopy Adjuncts used in placement: intubating stylet Endotracheal tube insertion site: oral Blade: Erick Blade size: #4 ETT size (mm): 8.0 Cormack-Lehane Classification: grade III - view of epiglottis only Placement verified by: chest auscultation, capnometry and palpation of cuff Measured from: lips ETT to lips (cm): 24 Number of attempts at approach: 1 Number of other approaches attempted: 0 [facility] 03-04-2025 Attending History and physical note H&P reviewed. The patient was examined and there are no changes to the H&P. Source Note - Jewel Lane MD - 02/09/2025 3:15 PM EDT Images from the original note were not included. [facility] CARDIOVASCULAR [facility] THORACIC SURGERY [address] [facility] [address] Dept: [phone] Dept Loc: [phone] Visit type: New Reason for Visit: Evaluation of multivessel coronary artery disease Assessment: 1. Coronary artery disease of [place] artery of [place] heart with stable angina pectoris (HCC) Recommendations: This is a 59-year-old male with history of hypertension, diabetes, hyperlipidemia with chest pain with exertion for the past 6 months. He saw cardiology and had an abnormal stress test, left heart cath showed significant multivessel coronary disease including the RCA, LAD, and circumflex territories. Stress echo shows preserved ejection fraction, no significant valvular abnormalities. Agree for the need for coronary artery bypass grafting this gentleman. On my review of the heart cath, the patient has adequate targets for bypass. Plan will be for use of left internal mammary artery, potential multi arterial grafting, and additional saphenous vein for conduit. STS risk for CABG in this patient with the information we have is low at 0.3% risk of 30-day mortality. Patient has TTE scheduled tomorrow, will follow the results. The following studies will be ordered prior to surgery: - Radial artery studies - Bilateral carotid artery ultrasound - CT of the chest without IV contrast - Vein mapping - Endocrinology referral for presumed uncontrolled diabetes. Last hemoglobin A1c was over 12%. This will need to be better controlled prior to scheduling surgery. Discussed risks and benefits of the procedure with the patient, and he wishes to proceed forward. STS Risk Calculator Procedure Type: Isolated CABG Perioperative Outcome Estimate % Operative Mortality 0.301% Morbidity & Mortality 2.36% Stroke 0.454% Renal Failure 0.413% Reoperation 1.38% Prolonged Ventilation 1.09% Deep Sternal Wound Infection 0.135% Long Hospital Stay (>14 days) 0.929% Short Hospital Stay (<6 days)* 75.7% History of Present Illness Wallace Turk is a 59 y.o. male referred by Dr. Enrique for CABG. Per note, pt has history of CAD s/p PCI of the LAD in May 2012, HTN, DM, hyperlipidemia. Pt had not had cardiac follow up for years and discontinued all medications other than aspirin. He saw Cardiology on 01/19/25 with complaints of chest discomfort with exertion. Pt had stress test in 2022 that was abnormal with moderately severe inferior wall defect suggesting an infarct. An echocardiogram demonstrated preserved EF. Pt underwent heart catheterization on 02/07/25 which demonstrated severe triple vessel disease with left ventricular systolic dysfunction. A1C drawn on 09/10/23 was 12%. Echocardiogram is scheduled on 02/10/25 at [place]. Pt is here now for an evaluation. Past Medical History Medical History[1] Past Surgical History Surgical History[2] Family History Family History[3] Social History Social History[4] Allergies Allergies[5] Medications Current Medications[6] Review of Systems Review of Systems Respiratory: Positive for chest tightness (intermittent on exertion). Neurological: Positive for light-headedness (intermittent on exertion). All other systems reviewed and are negative. Physical Exam Vitals: BP 132/83 (BP Location: Left arm, Patient Position: Sitting, BP Cuff Size: Large adult) Pulse 81 Ht 5' 10 (1.778 m) Wt 194 lb (88 kg) BMI 27.84 kg/m Constitutional: General: Not in acute distress. Appearance: Normal appearance. Not toxic-appearing. Ear, nose, mouth: Bilateral external ear and nose normal. Nose: Nose normal. Mouth: Appearance normal, no bleeding, moist mucus membranes Eyes: General: No scleral icterus. No discharge from bilateral eyes Extraocular Movements: Extraocular movements intact. Pupils equal and reactive bilaterally Cardiovascular: Heart: Regular rhythm. Normal heart sounds. Vascular: No carotid bruit. Edema: No edema in bilateral lower extremities Pulmonary: Effort: Pulmonary effort is normal. No respiratory distress. Breath sounds: Normal breath sounds. No wheezing. Chest wall: No tenderness. Abdominal: Appearance: Not distended Palpations: There is no abdominal tenderness, no guarding. Musculoskeletal: Bilateral upper and lower extremities: Normal range of motion, no deformity Head: Normocephalic and atraumatic. Neck: Normal range of motion and neck supple. No muscular tenderness. Lymphadenopathy: Cervical: No cervical adenopathy. Skin: General: Skin is warm and dry. Coloration: Skin is not jaundiced. Neurological: General: No focal deficit present. Cranial Nerves: No obvious cranial nerve deficit. Psychiatric: Mood and Affect: Mood normal. Thought Content: Thought content normal. Patient has good judgement and insight Mental Status: Alert and oriented to place, person, and time. Labs No results found for: WBC, HGB, PLT, NA, K, CREATININE Imaging Heart Catheterization 02/07/25 Conclusion TTE 12/26/22 FINDINGS: LEFT VENTRICLE The left ventricle is normal in size. Left ventricular systolic function is normal. Global LV myocardial strain is normal. Grade I left ventricular diastolic dysfunction. Mitral annular lateral E/e': 6.5. Mitral annular septal E/e': 8.1. Wall Motion: All scored segments are normal. RIGHT VENTRICLE The right ventricle is normal in size. Right ventricular systolic function is normal. RV systolic tissue Doppler velocity is 13.0 cm/s. Tricuspid annular displacement is 2.1 cm. Estimated right atrial pressure is not included as the IVC was not seen. LEFT ATRIUM The left atrial cavity is normal in size. RIGHT ATRIUM The right atrial cavity is normal in size. MITRAL VALVE The mitral valve leaflets are structurally normal. There is no mitral valve regurgitation. The pressure half time is 53 msec. The peak mitral E/A ratio is 0.67. The average mitral E/e' ratio is 7.3. The mitral flow deceleration time is 182 msec. TRICUSPID VALVE The tricuspid valve leaflets are structurally normal. There is no tricuspid valve regurgitation. AORTIC VALVE There is no aortic valve regurgitation. Tricuspid aortic valve. There is mild thickening. The peak gradient is 8 mmHg (peak velocity = 143.4 cm/s). PULMONIC VALVE The pulmonic valve cusps are structurally normal. There is trace pulmonic valve regurgitation. AORTA The visualized aorta is normal in size. Measurements - Mid ascending aorta 3.1 cm. PERICARDIUM There is no pericardial effusion. There is an epicardial fat pad. CONCLUSIONS: - Exam indication: Abnormal ECG - The left ventricle is normal in size. Left ventricular systolic function is normal. EF = 56 5% (2D biplane) Grade I left ventricular diastolic dysfunction. - The right ventricle is normal in size. Right ventricular systolic function is normal. - There are no significant valvular abnormalities. Stress Test 12/16/22 CONCLUSIONS: 1. SPECT Perfusion Study: Abnormal. The inferior wall defect is moderately severe and most consistent with an infarct. Suggest getting resting Echocardiogram and if there is good inferior wall motion, this finding maybe due to attenuation. 2. There is no scintigraphic evidence for inducible ischemia. 3. There is a small (<10%) fixed perfusion defect in the RCA territory. 4. Left ventricle is normal in size. The left ventricle systolic function is normal. 5. Right ventricle is normal in size. The right ventricle systolic function is normal. 6. This is a low risk scan. Patient Care Team: PCP: No PCP Cardiology: Az Enrique MD Disclaimer INFORMED CONSENT:The nature and purpose of the proposed treatment or procedure have been discussed. The risks and benefits of the proposed treatment or procedures have been reviewed. Alternatives have been reviewed in addition to the risks and benefits of not receiving treatments or undergoing procedures. Pursuant to this discussion, the patient agrees to undergo the proposed treatment or procedure. Captured images seen in this note from are not a substitute for a comprehensive interpretation of the entire data set as reflected by the interpreting physician with regard to radiology, echocardiography, and other diagnostic images. This note may have been dictated using [employer] Practice Edition 2.6 and/or [employer] Voice Recognition Feature. The document was proofread, however unrecognized voice recognition director distribution errors may be present. [1] Past Medical History: Diagnosis Date Coronary artery disease Diabetes mellitus (HCC) Erectile dysfunction Hyperlipidemia Hypertension Neuropathy LILA (obstructive sleep apnea) [2] Past Surgical History: Procedure Laterality Date CORONARY ANGIOPLASTY 05/2012 [3] Family History Problem Relation Name Age of Onset Diabetes Mother Coronary artery disease Mother Heart attack Mother Stroke Mother Diabetes Father [4] Social History Tobacco Use Smoking status: Never Smokeless tobacco: Never Substance Use Topics Alcohol use: Yes Alcohol/week: 2.0 standard drinks of alcohol Types: 2 Standard drinks or equivalent per week Drug use: Not Currently [5] Allergies Allergen Reactions Atorvastatin Other Other Reaction(s): Other: See Comments Muscle aches [6] Current Outpatient Medications: aspirin 81 MG EC tablet, Take 81 mg by mouth daily., Disp: , Rfl: atorvastatin (Lipitor) 40 MG tablet, Take 40 mg by mouth daily., Disp: , Rfl: metoprolol succinate XL (Toprol-XL) 50 MG 24 hr tablet, Take 50 mg by mouth daily. Do not crush or chew., Disp: , Rfl: Summa Edmodo Work Phone: 03-04-2025 History and physical note H&P reviewed. The patient was examined and there are no changes to the H&P. Source Note - Jewel Lane MD - 02/09/2025 3:15 PM EDT Images from the original note were not included. [facility] CARDIOVASCULAR [facility] THORACIC SURGERY [address] [facility] [address] Dept: [phone] Dept Loc: [phone] Visit type: New Reason for Visit: Evaluation of multivessel coronary artery disease Assessment: 1. Coronary artery disease of [place] artery of [place] heart with stable angina pectoris (HCC) Recommendations: This is a 59-year-old male with history of hypertension, diabetes, hyperlipidemia with chest pain with exertion for the past 6 months. He saw cardiology and had an abnormal stress test, left heart cath showed significant multivessel coronary disease including the RCA, LAD, and circumflex territories. Stress echo shows preserved ejection fraction, no significant valvular abnormalities. Agree for the need for coronary artery bypass grafting this gentleman. On my review of the heart cath, the patient has adequate targets for bypass. Plan will be for use of left internal mammary artery, potential multi arterial grafting, and additional saphenous vein for conduit. STS risk for CABG in this patient with the information we have is low at 0.3% risk of 30-day mortality. Patient has TTE scheduled tomorrow, will follow the results. The following studies will be ordered prior to surgery: - Radial artery studies - Bilateral carotid artery ultrasound - CT of the chest without IV contrast - Vein mapping - Endocrinology referral for presumed uncontrolled diabetes. Last hemoglobin A1c was over 12%. This will need to be better controlled prior to scheduling surgery. Discussed risks and benefits of the procedure with the patient, and he wishes to proceed forward. STS Risk Calculator Procedure Type: Isolated CABG Perioperative Outcome Estimate % Operative Mortality 0.301% Morbidity & Mortality 2.36% Stroke 0.454% Renal Failure 0.413% Reoperation 1.38% Prolonged Ventilation 1.09% Deep Sternal Wound Infection 0.135% Long Hospital Stay (>14 days) 0.929% Short Hospital Stay (<6 days)* 75.7% History of Present Illness Wallace Turk is a 59 y.o. male referred by Dr. Enrique for CABG. Per note, pt has history of CAD s/p PCI of the LAD in May 2012, HTN, DM, hyperlipidemia. Pt had not had cardiac follow up for years and discontinued all medications other than aspirin. He saw Cardiology on 01/19/25 with complaints of chest discomfort with exertion. Pt had stress test in 2022 that was abnormal with moderately severe inferior wall defect suggesting an infarct. An echocardiogram demonstrated preserved EF. Pt underwent heart catheterization on 02/07/25 which demonstrated severe triple vessel disease with left ventricular systolic dysfunction. A1C drawn on 09/10/23 was 12%. Echocardiogram is scheduled on 02/10/25 at [place]. Pt is here now for an evaluation. Past Medical History Medical History[1] Past Surgical History Surgical History[2] Family History Family History[3] Social History Social History[4] Allergies Allergies[5] Medications Current Medications[6] Review of Systems Review of Systems Respiratory: Positive for chest tightness (intermittent on exertion). Neurological: Positive for light-headedness (intermittent on exertion). All other systems reviewed and are negative. Physical Exam Vitals: BP 132/83 (BP Location: Left arm, Patient Position: Sitting, BP Cuff Size: Large adult) Pulse 81 Ht 5' 10 (1.778 m) Wt 194 lb (88 kg) BMI 27.84 kg/m Constitutional: General: Not in acute distress. Appearance: Normal appearance. Not toxic-appearing. Ear, nose, mouth: Bilateral external ear and nose normal. Nose: Nose normal. Mouth: Appearance normal, no bleeding, moist mucus membranes Eyes: General: No scleral icterus. No discharge from bilateral eyes Extraocular Movements: Extraocular movements intact. Pupils equal and reactive bilaterally Cardiovascular: Heart: Regular rhythm. Normal heart sounds. Vascular: No carotid bruit. Edema: No edema in bilateral lower extremities Pulmonary: Effort: Pulmonary effort is normal. No respiratory distress. Breath sounds: Normal breath sounds. No wheezing. Chest wall: No tenderness. Abdominal: Appearance: Not distended Palpations: There is no abdominal tenderness, no guarding. Musculoskeletal: Bilateral upper and lower extremities: Normal range of motion, no deformity Head: Normocephalic and atraumatic. Neck: Normal range of motion and neck supple. No muscular tenderness. Lymphadenopathy: Cervical: No cervical adenopathy. Skin: General: Skin is warm and dry. Coloration: Skin is not jaundiced. Neurological: General: No focal deficit present. Cranial Nerves: No obvious cranial nerve deficit. Psychiatric: Mood and Affect: Mood normal. Thought Content: Thought content normal. Patient has good judgement and insight Mental Status: Alert and oriented to place, person, and time. Labs No results found for: WBC, HGB, PLT, NA, K, CREATININE Imaging Heart Catheterization 02/07/25 Conclusion TTE 12/26/22 FINDINGS: LEFT VENTRICLE The left ventricle is normal in size. Left ventricular systolic function is normal. Global LV myocardial strain is normal. Grade I left ventricular diastolic dysfunction. Mitral annular lateral E/e': 6.5. Mitral annular septal E/e': 8.1. Wall Motion: All scored segments are normal. RIGHT VENTRICLE The right ventricle is normal in size. Right ventricular systolic function is normal. RV systolic tissue Doppler velocity is 13.0 cm/s. Tricuspid annular displacement is 2.1 cm. Estimated right atrial pressure is not included as the IVC was not seen. LEFT ATRIUM The left atrial cavity is normal in size. RIGHT ATRIUM The right atrial cavity is normal in size. MITRAL VALVE The mitral valve leaflets are structurally normal. There is no mitral valve regurgitation. The pressure half time is 53 msec. The peak mitral E/A ratio is 0.67. The average mitral E/e' ratio is 7.3. The mitral flow deceleration time is 182 msec. TRICUSPID VALVE The tricuspid valve leaflets are structurally normal. There is no tricuspid valve regurgitation. AORTIC VALVE There is no aortic valve regurgitation. Tricuspid aortic valve. There is mild thickening. The peak gradient is 8 mmHg (peak velocity = 143.4 cm/s). PULMONIC VALVE The pulmonic valve cusps are structurally normal. There is trace pulmonic valve regurgitation. AORTA The visualized aorta is normal in size. Measurements - Mid ascending aorta 3.1 cm. PERICARDIUM There is no pericardial effusion. There is an epicardial fat pad. CONCLUSIONS: - Exam indication: Abnormal ECG - The left ventricle is normal in size. Left ventricular systolic function is normal. EF = 56 5% (2D biplane) Grade I left ventricular diastolic dysfunction. - The right ventricle is normal in size. Right ventricular systolic function is normal. - There are no significant valvular abnormalities. Stress Test 12/16/22 CONCLUSIONS: 1. SPECT Perfusion Study: Abnormal. The inferior wall defect is moderately severe and most consistent with an infarct. Suggest getting resting Echocardiogram and if there is good inferior wall motion, this finding maybe due to attenuation. 2. There is no scintigraphic evidence for inducible ischemia. 3. There is a small (<10%) fixed perfusion defect in the RCA territory. 4. Left ventricle is normal in size. The left ventricle systolic function is normal. 5. Right ventricle is normal in size. The right ventricle systolic function is normal. 6. This is a low risk scan. Patient Care Team: PCP: No PCP Cardiology: Az Enrique MD Disclaimer INFORMED CONSENT:The nature and purpose of the proposed treatment or procedure have been discussed. The risks and benefits of the proposed treatment or procedures have been reviewed. Alternatives have been reviewed in addition to the risks and benefits of not receiving treatments or undergoing procedures. Pursuant to this discussion, the patient agrees to undergo the proposed treatment or procedure. Captured images seen in this note from are not a substitute for a comprehensive interpretation of the entire data set as reflected by the interpreting physician with regard to radiology, echocardiography, and other diagnostic images. This note may have been dictated using [employer] Medical Practice Edition 2.6 and/or [employer] Voice Recognition Feature. The document was proofread, however unrecognized voice recognition director distribution errors may be present. [1] Past Medical History: Diagnosis Date Coronary artery disease Diabetes mellitus (HCC) Erectile dysfunction Hyperlipidemia Hypertension Neuropathy LILA (obstructive sleep apnea) [2] Past Surgical History: Procedure Laterality Date CORONARY ANGIOPLASTY 05/2012 [3] Family History Problem Relation Name Age of Onset Diabetes Mother Coronary artery disease Mother Heart attack Mother Stroke Mother Diabetes Father [4] Social History Tobacco Use Smoking status: Never Smokeless tobacco: Never Substance Use Topics Alcohol use: Yes Alcohol/week: 2.0 standard drinks of alcohol Types: 2 Standard drinks or equivalent per week Drug use: Not Currently [5] Allergies Allergen Reactions Atorvastatin Other Other Reaction(s): Other: See Comments Muscle aches [6] Current Outpatient Medications: aspirin 81 MG EC tablet, Take 81 mg by mouth daily., Disp: , Rfl: atorvastatin (Lipitor) 40 MG tablet, Take 40 mg by mouth daily., Disp: , Rfl: metoprolol succinate XL (Toprol-XL) 50 MG 24 hr tablet, Take 50 mg by mouth daily. Do not crush or chew., Disp: , Rfl: documented in this encounter [facility] 03-04-2025 Note H&P reviewed. The pa vincent was examined and there are no changes to the H&P. 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 Procedures CORONARY ARTERY BYPASS GRAFT 65160 - HI CABG W/ARTERIAL GRAFT THREE ARTERIAL GRAFTS ECHOCARDIOGRAM, TRANSESOPHAGEAL 62880 - HI ECHO TRANSESOPHAG R-T 2D W/PRB IMG ACQUISJ I&R Xiphoidectomy Surgeons * Jewel Lane - Primary Procedure Summary Anesthesia: General ASA: IV Estimated Blood Loss: 250cc returned via cellsaver Drains: Chest Tube 1 Mediastinal 24 Fr (Active) Function -20 cm H2O 03/04/25 1218 Chest Tube Air Leak No 03/04/25 1218 Drainage Description Sanguineous 03/04/25 1218 Dressing Status Clean, dry & intact 03/04/25 1218 Site Assessment Clean;Dry;Intact 03/04/25 1218 Surrounding Skin Dry;Intact 03/04/25 1218 Output (mL) 30 mL 03/04/25 1218 NG/OG Tube [facility] mouth (Active) Placement Verification Auscultation 03/04/25 1218 External Catheter Length (cm) 60 cm 03/04/25 1218 Site Assessment Clean;Dry;Intact 03/04/25 1218 Status Low intermittent suction 03/04/25 1218 Urethral Catheter Temperature probe;Straight-tip (Active) Catheter Indications Hourly I&Os (Critical Care ONLY) 03/04/25 1218 Site Assessment Clean;Skin intact 03/04/25 1218 Collection Container Standard drainage bag 03/04/25 1218 Securement Method Securing device 03/04/25 1218 Catheter Best Practices Drainage tube clipped to bed;Catheter secured to thigh;Tamper seal intact;Bag below bladder;Drainage bag less than half full;Bag not on floor;Lack of dependent loop in tubing 03/04/25 1218 Catheter Status Draining;Patent 03/04/25 1218 Output (mL) 25 mL 03/04/25 1218 Specimens ID Source Type Tests Collected By Collected At Frozen? Priority Lab ID 1 Other Tissue TISSUE EXAM Jewel Lane MD 03/04/25 1133 Description: XIPHOID Staff: Retail Beauty Specialist: Randall Lamb RN Relief Retail Beauty Specialist: Jennifer Fairchild RN Scrub Person: Romeo Sims Assist: Sasha Moreno RN Indications: Wallace Turk is an 59 y.o. male with a history of exertional chest pain. He saw cardiology and had an abnormal stress test, with left heart catheterization showing significant multivessel coronary disease. CABG was recommended, and after discussion of the risks and benefits of the procedure he and his family agreed to proceed forward with the operation. Procedure in detail: CABG x 3 (MEADE-LAD, SVG-OM 2, SVG-D2) The patient was taken to the operating room, where the patient was intubated and general anesthesia was induced, Abarca inserted, and a central line and arterial line were placed. Preoperative KWAME demonstrated slightly depressed EF at 40% and no significant valvular abnormalities. The patient was prepped and draped in usual sterile fashion. A timeout was performed verifying the correct patient, procedure, and operative plan. Appropriate VTE prophylaxis was administered. Antibiotics were given initially and redosed as appropriate throughout the case. A midline sternotomy was created with a reciprocating saw and hemostasis was achieved. Left lower extremity endoscopic vein harvesting was performed. The left the PDA was an extremely small vessel internal mammary artery was harvested in a skeletonized fashion. The mediastinum was then dissected, the pericardium was opened, and pericardial stay sutures were placed. Heparin was given and the aorta was cannulated in standard fashion. The distal end of the mammary artery was then taken down from the chest wall and prepped in papaverine solution. Venous cannula was inserted in the right atrial appendage. After confirmation of adequate ACT above 480 seconds, the patient was placed on cardiopulmonary bypass with good flows. The aortic root vent/antegrade cardioplegia catheter was inserted, followed by the retrograde cardioplegia catheter. The aortic cross-clamp was then placed while bypass was at low flow, and cold blood antegrade cardioplegia was given followed by retrograde cardioplegia with quick arrest of the heart. Cardioplegia was then redosed every 15-30 minutes throughout the case. A mesh sling was then positioned to support the heart while examining targets and performing distal anastomoses. Distal targets were then examined for bypass. The PDA was extremely small vessel and diffusely calcified, not amenable for grafting. The OM 2 was a moderately large size vessel and saphenous vein was anastomosed to this target with 7-0 Prolene. In a similar fashion, the second diagonal branch was also moderately large vessel and saphenous vein was anastomosed to this target as well with 7-0 Prolene. After the distal anastomoses were created, antegrade cardioplegia was given, and the proximal anastomoses were created on the ascending aorta with 6-0 Prolene. Antegrade cardioplegia was then given, the proximal aorta de-aired, and the anastomoses were found to be hemostatic. The MEADE was then examined and found to have good flow. The LAD target was identified. The MEADE was anastomosed to the LAD in standard fashion using 7-0 Prolene. Of note, I have no true objective evidence of the patency of the grafts due to lack of availability of the Medistim flow probe device. Doppler evaluation of the grafts was performed but provided minimal information. The patient was placed in Trendelenburg position, the pump was decreased to low flow, and the cross-clamp was removed. Electrical activity of the heart resumed. Pacing wires were placed (cut or pull). Hemostasis at all anastomoses was checked and found to be adequate. Ventilation was resumed, and the heart was filled. On KWAME examination, heart function was good and there was no residual air. Bypass flows were reduced incrementally, the patient was weaned from cardiopulmonary bypass, and protamine was given without issue. Cannulas were removed sequentially after hemostasis was again confirmed. Chest tubes were placed. The chest was closed with sternal wires, xiphoidectomy was performed in the patient's large protuberant xiphoid, the fascia was closed with a running 0 Vicryl suture, skin was closed with Monocryl suture, surgical glue was applied at the skin level. Sponge, needle, and instrument counts were correct prior to closure of the sternum and a second count was performed at the end of the case to verify. An operative signout was performed with the entire operative staff. The patient was taken to the ICU, intubated, on no pressor or inotropic support, and an additional signout was performed with the CVICU staff upon arrival to the unit. Jewel Lane MD Cardiothoracic Surgeon 03/04/25 12:52 PM [facility] 03-04-2025 Note Patient: Wallace Poe rd Procedure Information Date/Time: 03/04/25 0700 Procedures: CORONARY ARTERY BYPASS GRAFT (Chest) ECHOCARDIOGRAM, TRANSESOPHAGEAL Location: [facility] Operating Room Surgeons: Jewel Lane MD Relevant Problems Cardio (+) CAD in [place] artery Past Medical History: Past Medical History: No date: Coronary artery disease No date: Diabetes mellitus (HCC) No date: Erectile dysfunction No date: Hyperlipidemia No date: Hypertension No date: Neuropathy No date: LILA (obstructive sleep apnea) Comment: non compliant Past Surgical History: Past Surgical History: No date: ACHILLES TENDON SURGERY; Right No date: COLONOSCOPY 05/2012: CORONARY ANGIOPLASTY No date: CORONARY STENT PLACEMENT Comment: x3 Social History: TOBACCO: reports that he has never smoked. His smokeless tobacco use includes chew. ETOH: reports current alcohol use of about 2.0 standard drinks of alcohol per week. Social History Substance and Sexual Activity Drug Use Not Currently Family History: Family History[1] Screening: unknown Clinical information reviewed: Tobacco Allergies Meds Med Hx Surg Hx Fam Hx Soc Hx Physical Exam Airway Mallampati: II Cardiovascular Dental (+) chipped Pulmonary Abdominal Anesthesia Plan Any family history or previous problems with anesthesia no ASA 4 general Any family history or previous problems with anesthesia nopatient is NPO appropriate CONCLUSIONS: 1. SPECT Perfusion Study: Abnormal. The inferior wall defect is moderately severe and most consistent with an infarct. Suggest getting resting Echocardiogram and if there is good inferior wall motion, this finding maybe due to attenuation. 2. There is no scintigraphic evidence for inducible ischemia. 3. There is a small (<10%) fixed perfusion defect in the RCA territory. 4. Left ventricle is normal in size. The left ventricle systolic function is normal. 5. Right ventricle is normal in size. The right ventricle systolic function is normal. 6. This is a low risk scan. LILA Screening Labs: Lab Results Component Value Date WBC 4.9 02/24/2025 HGB 15.8 02/24/2025 HCT 46.8 02/24/2025 MCV 86.0 02/24/2025 PLT 201 02/24/2025 Lab Results Component Value Date NA 138 02/24/2025 K 4.1 02/24/2025 CL 102 02/24/2025 CO2 24 02/24/2025 BUN 19 02/24/2025 CREATININE 0.84 02/24/2025 GLUCOSE 204 (H) 02/24/2025 CALCIUM 9.2 02/24/2025 PROT 7.5 02/24/2025 ALKPHOS 95 02/24/2025 AST 20 02/24/2025 ALT 23 02/24/2025 EGFR >90.0 02/24/2025 Pain Score: 0 - No pain No echocardiogram results found for the past 14 days 02/24/25 ECG 12-LEAD 02/24/2025 4:51 PM (Final) Impression Sinus rhythm Minimal ST elevation, inferior leads No previous ECG available for comparison Electronically Signed On 02-24-2025 16:51:40 EDT by Wallace Dias Signed by: Wallace Dias MD on 02/24/2025 4:51 PM Equipment Requests: Additional Equipment Requests [1] Family History Problem Relation Name Age of Onset Diabetes Mother Coronary artery disease Mother Heart attack Mother Stroke Mother Diabetes Father [facility] 03-04-2025 Nurse Note Message sent regarding no bacitracin ointment and swish and spit ordered. [facility] 03-03-2025 Telephone encounter Note Instructed Wallace to increase the Lantus to 12 units daily and to increase the Humalog to 4 units three times daily before meals (as long as BG above 70). Confirms understanding of the dosing instructions. He is aware the inpatient team will be following him after his surgery as we discussed this yesterday, and also remembers about the differences and delays between blood glucose levels and CGM readings. He has no questions at this time. [facility] 03-03-2025 Miscellaneous Notes Instructed Wallace to increase the Lantus to 12 units daily and to increase the Humalog to 4 units three times daily before meals (as long as BG above 70). Confirms understanding of the dosing instructions. He is aware the inpatient team will be following him after his surgery as we discussed this yesterday, and also remembers about the differences and delays between blood glucose levels and CGM readings. He has no questions at this time. Addended by: RICHARD MARQEUZ. on: 03/03/2025 01:10 PM Modules accepted: Orders Michael Rojas, Can you please discuss with the patient that it is normal for the Continuous Glucose Monitor and Meter to be off as the meter is using blood to monitor Glucose levels and the Continuous Glucose Monitor is monitoring interstitial fluid so it will always be a bit behind the Meter, but gives us good data and trends. I reviewed his download and would recommend he go up on the Lantus to 12 units every day and up on the Humalog to 4 units if eating a full meal and Blood Glucose over 70. Orders have been sent. When he has the surgery, his Blood Glucose will be managed by the inpatient team. Please inform the patient. Thank you! Richard Marquez PA-C Spoke with Wallace about blood glucose testing and use of insulin. He confirms he is using the insulin as prescribed 15 minutes before his meals. Also has been logging BG fingerstick results since he is not confident with the CGM Dexcom readings. He will continue to do finger sticks and record the data 4 times daily. Wallace reports he is undergoing heart bypass surgery at [facility] on Sunday 03/04. We discussed post-operative diabetes management and possibility of increased insulin dosing after his surgery for a period of time. Answered all questions to satisfaction. Dexcom download is on media tab for review though has only had sensor on since last week office visit. LVM for patient. Gave patient msg as written by provider. Michael Dias, Patient was just seen a couple of days ago for the first time and we started a weight-based insulin at that time. Patient did not bring Blood Glucose Logs and was not checking Blood Glucose so had to base the decision on his A1C, weight, and Blood Glucose in the office. I would recommend he use the insulin as recommended for 1 week and bring us logs so we can review and titrate as appropriate or sooner if Blood Glucose consistently under 70. Thank you! Richard Marquez PA-C Patient's further questions if applicable: Pt states he would like to discuss new insulin he has some questions regarding his numbers. Please advise. Called pharmacy, Adelita went through. 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 Name of caller: Wallace Contact phone number: [phone] Relationship to Patient: patient Provider: Jimmy JEFF Practice: End[facility] Chief Complaint/Reason for Call: Pt states insurance needs a PA for medication insulin glargine (Lantus) 100 UNIT/ML pen [[id number]] Or if an alternative needs to be sent in. Pt wants to make urgently aware needs BSL levels down prior to bypass surgery on 02/28/25. Pt is at 300 BSL and needs to be at 250 or lower Best time of day caller can be reached: Any Patient advised that office/PCP has 24-48 business hours to return their call: Yes documented in this encounter [facility] 03-03-2025 Note Addended by: RICHARD GALLARDO on: 03/03/2025 01:10 PM Modules accepted: Orders [facility] 03-03-2025 Note Addended by: RICHARD GALLARDO on: 03/03/2025 01:10 PM Modules accepted: Orders [facility] 03-03-2025 Note Addended by: RICHARD GALLARDO on: 03/03/2025 01:10 PM Modules accepted: Orders [facility] 03-03-2025 Telephone encounter Note Hi Crystal, Can you please discuss with the patient that it is normal for the Continuous Glucose Monitor and Meter to be off as the meter is using blood to monitor Glucose levels and the Continuous Glucose Monitor is monitoring interstitial fluid so it will always be a bit behind the Meter, but gives us good data and trends. I reviewed his download and would recommend he go up on the Lantus to 12 units every day and up on the Humalog to 4 units if eating a full meal and Blood Glucose over 70. Orders have been sent. When he has the surgery, his Blood Glucose will be managed by the inpatient team. Please inform the patient. Thank you! Richard Marquez PA-C [facility] 03-02-2025 Telephone encounter Note Spoke with Wallace about blood glucose testing and use of insulin. He confirms he is using the insulin as prescribed 15 minutes before his meals. Also has been logging BG fingerstick results since he is not confident with the CGM Dexcom readings. He will continue to do finger sticks and record the data 4 times daily. Wallace reports he is undergoing heart bypass surgery at [facility] on Sunday 03/04. We discussed post-operative diabetes management and possibility of increased insulin dosing after his surgery for a period of time. Answered all questions to satisfaction. Dexcom download is on media tab for review though has only had sensor on since last week office visit. [facility] 03-02-2025 Miscellaneous Notes Spoke with Wallace about blood glucose testing and use of insulin. He confirms he is using the insulin as prescribed 15 minutes before his meals. Also has been logging BG fingerstick results since he is not confident with the CGM Dexcom readings. He will continue to do finger sticks and record the data 4 times daily. Wallace reports he is undergoing heart bypass surgery at [facility] on Sunday 03/04. We discussed post-operative diabetes management and possibility of increased insulin dosing after his surgery for a period of time. Answered all questions to satisfaction. Dexcom download is on media tab for review though has only had sensor on since last week office visit. LVM for patient. Gave patient msg as written by provider. Michael Dias, Patient was just seen a couple of days ago for the first time and we started a weight-based insulin at that time. Patient did not bring Blood Glucose Logs and was not checking Blood Glucose so had to base the decision on his A1C, weight, and Blood Glucose in the office. I would recommend he use the insulin as recommended for 1 week and bring us logs so we can review and titrate as appropriate or sooner if Blood Glucose consistently under 70. Thank you! Richard Marquez PA-C Patient's further questions if applicable: Pt states he would like to discuss new insulin he has some questions regarding his numbers. Please advise. Called pharmacy, Lantus went through. 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 Name of caller: Wallace Contact phone number: [phone] Relationship to Patient: patient Provider: Jimmy JEFF Practice: Endo Chief Complaint/Reason for Call: Pt states insurance needs a PA for medication insulin glargine (Lantus) 100 UNIT/ML pen [[id number]] Or if an alternative needs to be sent in. Pt wants to make urgently aware needs BSL levels down prior to bypass surgery on 02/28/25. Pt is at 300 BSL and needs to be at 250 or lower Best time of day caller can be reached: Any Patient advised that office/PCP has 24-48 business hours to return their call: Yes documented in this encounter [facility] 03-01-2025 Telephone encounter Note LVM for patient. Gave patient msg as written by provider. [facility] 03-01-2025 Miscellaneous Notes LVM for patient. Gave patient msg as written by provider. Michael Dias, Patient was just seen a couple of days ago for the first time and we started a weight-based insulin at that time. Patient did not bring Blood Glucose Logs and was not checking Blood Glucose so had to base the decision on his A1C, weight, and Blood Glucose in the office. I would recommend he use the insulin as recommended for 1 week and bring us logs so we can review and titrate as appropriate or sooner if Blood Glucose consistently under 70. Thank you! Richard Marquez PA-C Patient's further questions if applicable: Pt states he would like to discuss new insulin he has some questions regarding his numbers. Please advise. Called pharmacy, Lantus went through. 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 Name of caller: Wallace Contact phone number: [phone] Relationship to Patient: patient Provider: Jimmy JEFF Practice: Endo Chief Complaint/Reason for Call: Pt states insurance needs a PA for medication insulin glargine (Lantus) 100 UNIT/ML pen [[id number]] Or if an alternative needs to be sent in. Pt wants to make urgently aware needs BSL levels down prior to bypass surgery on 02/28/25. Pt is at 300 BSL and needs to be at 250 or lower Best time of day caller can be reached: Any Patient advised that office/PCP has 24-48 business hours to return their call: Yes documented in this encounter [facility] 02-28-2025 Telephone encounter Note Hi Larissa, Patient was just seen a couple of days ago for the first time and we started a weight-based insulin at that time. Patient did not bring Blood Glucose Logs and was not checking Blood Glucose so had to base the decision on his A1C, weight, and Blood Glucose in the office. I would recommend he use the insulin as recommended for 1 week and bring us logs so we can review and titrate as appropriate or sooner if Blood Glucose consistently under 70. Thank you! Richard Marquez PA-C [facility] 02-28-2025 Miscellaneous Notes Michael Dias, Patient was just seen a couple of days ago for the first time and we started a weight-based insulin at that time. Patient did not bring Blood Glucose Logs and was not checking Blood Glucose so had to base the decision on his A1C, weight, and Blood Glucose in the office. I would recommend he use the insulin as recommended for 1 week and bring us logs so we can review and titrate as appropriate or sooner if Blood Glucose consistently under 70. Thank you! Richard Marquez PA-C Patient's further questions if applicable: Pt states he would like to discuss new insulin he has some questions regarding his numbers. Please advise. Called pharmacy, Lantus went through. 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 Name of caller: Wallace Contact phone number: [phone] Relationship to Patient: patient Provider: Jimmy JEFF Practice: Endo Chief Complaint/Reason for Call: Pt states insurance needs a PA for medication insulin glargine (Lantus) 100 UNIT/ML pen [[id number]] Or if an alternative needs to be sent in. Pt wants to make urgently aware needs BSL levels down prior to bypass surgery on 02/28/25. Pt is at 300 BSL and needs to be at 250 or lower Best time of day caller can be reached: Any Patient advised that office/PCP has 24-48 business hours to return their call: Yes documented in this encounter [facility] 02-28-2025 Telephone encounter Note Patient's further questions if applicable: Pt states he would like to discuss new insulin he has some questions regarding his numbers. Please advise. [facility] 02-28-[address] Lane case cancelled. Patient IV removed at this time. [facility] 02-28-[address] Lane case cancelled. Patient IV removed at this time. Blood sugar 202 no sliding scale insulin orders at this time. Per Dr. Clarke patient will be monitored in OR and will be covered as needed. No insulin orders given at this time. documented in this encounter [facility] 02-28-2025 Nurse Note Blood sugar 202 no sliding scale insulin orders at this time. Per Dr. Clarke patient will be monitored in OR and will be covered as needed. No insulin orders given at this time. [facility] 02-25-2025 Telephone encounter Note Called pharmacy, Lantus went through. 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 [facility] 02-25-2025 Telephone encounter Note Name of caller: Wallace Contact phone number: [phone] Relationship to Patient: patient Provider: Jmimy JEFF Practice: [facility] Chief Complaint/Reason for Call: Pt states insurance needs a PA for medication insulin glargine (Lantus) 100 UNIT/ML pen [[id number]] Or if an alternative needs to be sent in. Pt wants to make urgently aware needs BSL levels down prior to bypass surgery on 02/28/25. Pt is at 300 BSL and needs to be at 250 or lower Best time of day caller can be reached: Any Patient advised that office/PCP has 24-48 business hours to return their call: Yes [facility] 02-25-2025 Telephone encounter Note Noted. Notified pt's . Discussed the importance of compliance with medications and diet. She verbalizes understanding. Closing encounter. [facility] Work Phone: 02-25-2025 Miscellaneous Notes Noted. Notified pt's . Discussed the importance of compliance with medications and diet. She verbalizes understanding. Closing encounter. Patient present to [facility] prior to: Case: [id number] Date/Time: 02/28/25 0730 Procedures: CORONARY ARTERY BYPASS GRAFT (Chest) [38937 CPT(R)] TRANSESOPHAGEAL ECHOCARDIOGRAM [03085 CPT(R)] Diagnosis: Atherosclerotic heart disease of [place] coronary artery with other forms of angina pectoris (HCC) [I25.118] Location: [facility] OR Operating Room Surgeons: Jewel Lane MD Current A1c 11.1. He saw endocrinology today. See notes below from [facility], PAC. Patient is supposed to have CABG done next week and asked if it would be safe and that the Surgeon would like the A1C under 8. They asked if we could get it there by Friday. I let them know this is likely unrealistic and that the surgery is up to the surgeon's digression based on safety. Discussed need for weekly communication with us with Blood Glucose so we can make adjustments to the insulin and titrate as appropriate. Recommendations: Patient will make the following changes to regimen: - START Lantus 10 units every day - START Humalog 3 units three times daily before meals. Do not take if not eating or Blood Glucose under 70 before eating. I notified anesthesia of A1c. Would you like to proceed with surgery Friday? Thank you. documented in this encounter [facility] 02-24-2025 Telephone encounter Note Patient present to PAT prior to: Case: [id number] Date/Time: 02/28/25 0730 Procedures: CORONARY ARTERY BYPASS GRAFT (Chest) [78479 CPT(R)] TRANSESOPHAGEAL ECHOCARDIOGRAM [36037 CPT(R)] Diagnosis: Atherosclerotic heart disease of [place] coronary artery with other forms of angina pectoris (HCC) [I25.118] Location: [facility] OR [address] [place] [address] Operating Room Surgeons: Jewel Lane MD Current A1c 11.1. He saw endocrinology today. See notes below from [facility], PAC. Patient is supposed to have CABG done next week and asked if it would be safe and that the Surgeon would like the A1C under 8. They asked if we could get it there by Friday. I let them know this is likely unrealistic and that the surgery is up to the surgeon's digression based on safety. Discussed need for weekly communication with us with Blood Glucose so we can make adjustments to the insulin and titrate as appropriate. Recommendations: Patient will make the following changes to regimen: - START Lantus 10 units every day - START Humalog 3 units three times daily before meals. Do not take if not eating or Blood Glucose under 70 before eating. I notified anesthesia of A1c. Would you like to proceed with surgery Friday? Thank you. [facility] 02-24-2025 Note Patient: Wallace [address] Procedure Information Date/Time: 02/28/25 0730 Procedures: CORONARY ARTERY BYPASS GRAFT (Chest) TRANSESOPHAGEAL ECHOCARDIOGRAM Location: [address] Operating Room Surgeons: Jewel Lane MD Relevant Problems Cardio (+) CAD in [place] artery Past Medical History: Past Medical History: No date: Coronary artery disease No date: Diabetes mellitus (HCC) No date: Erectile dysfunction No date: Hyperlipidemia No date: Hypertension No date: Neuropathy No date: LILA (obstructive sleep apnea) Comment: non compliant Past Surgical History: Past Surgical History: No date: ACHILLES TENDON SURGERY; Right No date: COLONOSCOPY 05/2012: CORONARY ANGIOPLASTY No date: CORONARY STENT PLACEMENT Comment: x3 Social History: TOBACCO: reports that he has never smoked. His smokeless tobacco use includes chew. ETOH: reports current alcohol use of about 2.0 standard drinks of alcohol per week. Social History Substance and Sexual Activity Drug Use Not Currently Family History: Family History[1] Screening: unknown Clinical information reviewed: Tobacco Allergies Meds Med Hx Surg Hx Fam Hx Soc Hx Physical Exam Airway Mallampati: II TM distance: >3 FB Neck ROM: full Mouth Open: normalendotracheal tube not in place Cardiovascular Dental dentition normal Pulmonary Abdominal Anesthesia Plan Any family history or previous problems with anesthesia no We discussed risks, benefits, alternatives and likelihood of success with the Patient. ASA 3 general Any family history or previous problems with anesthesia no The patient is not a current smoker. Patient did not smoke on day of procedure. patient is NPO appropriate LILA Screening Labs: No results found for: WBC, HGB, HCT, MCV, PLT No results found for: SODIUM, NA, POTASSIUM, K, CHLORIDE, CL, CO2, BUN, CREATININE, GLUCOSE, CALCIUM, PROT, BILIRUBINFL, ALKPHOS, AST, ALT, EGFR, GLOB Pain Score: 0 - No pain No echocardiogram results found for the past 14 days No results found for this or any previous visit. Equipment Requests: Additional Equipment Requests Vascular Equipment: Heart Setup Additional Equipment: ultrasound Care Team [1] Family History Problem Relation Name Age of Onset Diabetes Mother Coronary artery disease Mother Heart attack Mother Stroke Mother Diabetes Father [facility] 02-24-2025 Note Comprehensive Pre Velazquez rgical History and Physical ? Name: Wallace Turk : 1965 (Age-59 y.o.) Date of Service: Pt seen/examined on 02/24/2025 Procedure Information Date/Time: 02/28/25 0730 Procedures: CORONARY ARTERY BYPASS GRAFT (Chest) TRANSESOPHAGEAL ECHOCARDIOGRAM Location: [facility] OR [address] [place] [address] Operating Room Surgeons: Jewel Lnae MD Chief Complaint: Atherosclerotic heart disease of [place] coronary artery with other forms of angina pectoris (HCC) [I25.118] ASSESSMENT/PLAN: Plan based on PAT protocol for this high risk procedure/surgery. Based on the below evaluation, the benefits of the planned procedure likely exceed the risks. The patient is medically optimized to proceed with the planned procedure without any further cardiopulmonary testing. 1) Atherosclerotic heart disease of [place] coronary artery with other forms of angina pectoris (HCC) [I25.118] - Managed per surgery - A1c reviewed from today 02/24/25 - Orders per PAT Protocol: EKG, CBC, CMP, CXR, MRSA, PT/INR, PTT, T&S with 2 units, UA 2) CAD - MEDS: 81mg ASA, reports compliance to medication - s/p PCI of the LAD in May 2012 - hx of stents- YES x3. Patient instructed to continue aspirin uninterrupted. Discontinuation of aspirin in the presence of a coronary stent has been associated with kamryn-operative stent thrombosis, myocardial infarction and . Patient verbalized understanding. 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 4) LILA (obstructive sleep apnea) - Non-compliant with home device - I would consider higher level of care (continuous pulse ox) with this patient due to LILA and increased risks 5) DM (diabetes mellitus) - Type II - Last A1c 11.1 02/24/25 - MEDS: new medications ordered today by endo- lantus and humalog; have not started yet - Insulin pump - NO - Blood glucose goal is <250 DOS; pt aware - Uncontrolled; Managed by A [facility], PAC, last OV 02/24/25 today for optimization; recommendations: Patient is supposed to have CABG done next week and asked if it would be safe and that the Surgeon would like the A1C under 8. They asked if we could get it there by Friday. I let them know this is likely unrealistic and that the surgery is up to the surgeon's digression based on safety. Discussed need for weekly communication with us with Blood Glucose so we can make adjustments to the insulin and titrate as appropriate. Recommendations: Patient will make the following changes to regimen: - START Lantus 10 units every day - START Humalog 3 units three times daily before meals. Do not take if not eating or Blood Glucose under 70 before eating. - Notified surgeon and anesthesia of the above; see telephone encounter dated 02/24/25 6) Nicotine use - Chewing tobacco - Cessation is encouraged - Patient counseled to avoid nicotine or THC products 24 hours prior to scheduled procedure; he verbalizes understanding EKG: Reviewed with Dr Ulloa. Ok to proceed. Encounter Date: 02/24/25 ECG 12 lead Result Value Heart Rate 76 QRSD Interval 111 QT Interval 391 QTC Interval 439 P [place] 39 QRS [place] 9 T Wave [place] 40 HI Interval 185 Impression Sinus rhythm Minimal ST elevation, inferior leads Heart Catheterization 02/07/25 Conclusion TTE 12/26/22 FINDINGS: LEFT VENTRICLE The left ventricle is normal in size. Left ventricular systolic function is normal. Global LV myocardial strain is normal. Grade I left ventricular diastolic dysfunction. Mitral annular lateral E/e': 6.5. Mitral annular septal E/e': 8.1. Wall Motion: All scored segments are normal. RIGHT VENTRICLE The right ventricle is normal in size. Right ventricular systolic function is normal. RV systolic tissue Doppler velocity is 13.0 cm/s. Tricuspid annular displacement is 2.1 cm. Estimated right atrial pressure is not included as the IVC was not seen. LEFT ATRIUM The left atrial cavity is normal in size. RIGHT ATRIUM The right atrial cavity is normal in size. MITRAL VALVE The mitral valve leaflets are structurally normal. There is no mitral valve regurgitation. The pressure half time is 53 msec. The peak mitral E/A ratio is 0.67. The average mitral E/e' ratio is 7.3. The mitral flow deceleration time is 182 msec. TRICUSPID VALVE The tricuspid valve leaflets are structurally normal. There is no tricuspid valve regurgitation. AORTIC VALVE There is no aortic valve regurgitation. Tricuspid aortic valve. There is mild thickening. The peak gradient is 8 mmHg (peak velocity = 143.4 cm/s). PULMONIC VALVE The pulmonic valve cusps are structurally normal. There is trace pulmon (more content not included)... [facility] 02-24-2025 History of Present illness Narrative Images from the original note were not included. [facility] [address] [place] [address] Dept: [phone] Dept Loc: [phone] Visit type: New patient Reason for Visit: New Patient and Diabetes Mellitus Assessment and Plan 1. Type 2 diabetes mellitus with hyperglycemia, without long-term current use of insulin ([facility]) - [facility] Endocrinology - AMB POC HEMOGLOBIN A1C - AMB POC GLUCOSE TEST - [facility] Ophthalmology [facility] - Zinc Transporter 8 Antibody - Glutamic acid decarboxylase (Sendout) - C-Peptide - [place]-2 Antibody - Glucose, random - Comprehensive metabolic panel - Microalbumin / creatinine urine ratio - Lipid panel - T4, free - TSH - Vitamin D Deficiency Screening (Vit D 25) - insulin lispro (HumaLOG) 100 UNIT/ML pen injection; Inject 3 Units under the skin 3 times daily (before meals)., Starting Kika 02/24/2025, Until Fri02/24/2026, Normal - insulin glargine (Lantus) 100 UNIT/ML pen; Inject 10 Units under the skin Nightly., Starting Kika 02/24/2025, Until Fri02/24/2026, Normal - insulin pen needle 32G X 4 MM misc; 4 times daily, Normal - Blood Glucose Monitoring Suppl (True Metrix Meter) w/Device kit; 1 each 4 times daily. For daily blood sugar monitoring 4 times daily for Continuous Glucose Monitor failure, Starting Kika 02/24/2025, Until Fri02/24/2026, Normal - glucose blood (True Metrix Blood Glucose Test) test strip; For daily blood sugar monitoring 4 times daily for Continuous Glucose Monitor failure, Normal - Lancets 33G misc; 1 each 4 times daily. For daily blood sugar monitoring 4 times daily for Continuous Glucose Monitor failure, Starting Kika 02/24/2025, Until Fri02/24/2026, Normal - Alcohol Swabs pads; For daily blood sugar monitoring 4 times daily for Continuous Glucose Monitor failure, Normal - Continuous Glucose Sensor (Dexcom G7 Sensor) misc; Replace with a new sensor every 10 days., Print - glucagon 1 MG injection; Inject 1 mL (1 mg) under the skin Once as needed for low blood sugar., Starting Kika 02/24/2025, Until Fri02/24/2026 at 2359, Normal 2. Type 2 diabetes mellitus with diabetic polyneuropathy, without long-term current use of insulin ([facility]) 3. Hypertension associated with type 2 diabetes mellitus (HCC) 4. Type 2 diabetes mellitus with hyperlipidemia (HCC) ([facility]) No results found for: EGFR, TSH, CHOL, TRIGLYCERIDE, HDL, LDLCALC, MICROALBCREA, ALBUMINCREAT Lab Results Component Value Date HGBA1C 11.7 (A) 02/24/2025 A1C is at goal: no Goal A1C is under 7.0 Patient does not have Blood Glucose monitoring supplies so will send for him now. Will need to make decisions based on in office Blood Glucose and A1C - Discussed danger of high A1C/Blood Glucose for extended periods of time. - Discussed healthy balanced diet and exercise - Discussed blood glucose goals and A1C targets - Discussed importance of taking meds as prescribed, proper administration, and timing Patient is supposed to have CABG done next week and asked if it would be safe and that the Surgeon would like the A1C under 8. They asked if we could get it there by Friday. I let them know this is likely unrealistic and that the surgery is up to the surgeon's digression based on safety. Discussed need for weekly communication with us with Blood Glucose so we can make adjustments to the insulin and titrate as appropriate. Recommendations: Patient will make the following changes to regimen: - START Lantus 10 units every day - START Humalog 3 units three times daily before meals. Do not take if not eating or Blood Glucose under 70 before eating. Discussed proper administration, rotating injection sites, and timing in detail today Patient would like to avoid Metformin SGLT2 not a good option re: uncontrolled A1C Could possibly use GLP-1/DPP-4 in the future but will await labs Since there are no Blood Glucose logs, we will start insulin with a weight-based dosing. Possibility of Type 1 Diabetes so will order antibodies and labs based on presentation. We discussed other options besides insulin in the future if labs come back negative for Type 1 Diabetes but I think insulin is the best option to start today whether he has Type 1 Diabetes or Type 2 Diabetes. MICHELLE and Islet Cell were checked in 2023 but I want to recheck them to confirm today due to uncontrolled Diabetes despite very healthy diet/exercise and lean body. --> Labs to be done fasting prior to next visit; discussed holding supplements 5 days prior. Add Zinc, IA-2, and fasted C-Peptide with glucose. --> Continue BG monitoring: via Dexcom G7 ([employer]) (or FSBS 3-4 times per day) and send in BGL in 2 weeks for review. Patient downloaded Dexcom NOELLE today and MA placed a sample Dexcom G7 and I recommended he send us logs once it is finished Does not have a meter so sent True Metrix as backup for Continuous Glucose Monitor failure --> Hypos: Glucagon sent today - Discussed hypoglycemia treatment plan --> DSME: for general Diabetes Education, goals, insulin use, etc. He has not had formal Diabetes Education Education: Discussed with Patient: - Notification Parameters - Discussed potential medication side effects, benefits, and symptoms to be aware of - Discussed uncontrolled diabetes potential effects on organ systems - Discussed importance of Follow up for Diabetes - Patient instructed to call office if BG over 250 or under 70 consistently Follow Up with Lna at least annually. Referral sent per patient request. Follow Up with Podiatry if needed. He has neuropathy. Does not have MyChart so will talk to front office director staff about setup for this. Hypertension - Patient is taking Metoprolol. Continue as prescribed - Cardiology manages - BP today: BP Readings from Last 1 Encounters: 02/24/25 129/78 Hyperlipidemia - Continue statin as prescribed. Cardiology manages. No results found for: LDLCALC - Patient counseled about these recommendations. Patient voiced understanding. Follow up in about 3 months (around 05/27/2025) for Next scheduled follow-up. Subjective HPI PCP: No primary care provider on file. Referring Provider: Doctor Lane [facility] Office visit: 02/2025 Patient presents with today who has questions as well so went over everything with both of them today. History of Type 2 Diabetes Time of Onset: 2013 He does have a family history of diabetes mellitus in his Mother, Father, and Grandparents. Type 1 (grandmother) 10/2023 MICHELLE and Islet Cell antibodies were negative. No Zinc, IA-2, or C-Peptide was done. Current Medication Regimen: - Denies, not using current Medications. Took himself off of everything because he wanted to be holistic Previously Used DM Agents: - Metformin - patient discontinued. Would not like to use this medication - Jardiance - patient discontinued, wanted to be holistic. - Trulicity - patient discontinued, wanted to be holistic. Injection Sites/Rotation: n/a Missed Medication Doses: n/a Glucose Monitoring Blood Glucose Monitoring Devices Used: None. He is not testing Blood Glucose at all and does not have supplies Blood Glucose Logs present: No - see above Recent Hyperglycemia - Endorses Recent Hypoglycemia: Denies BG Trends: N/a cannot review trends re: see above. Blood Glucose in office is 230 Dietary Patterns: - Very strict with diet per patient. He believes in holistic approach. Eating well overall. Watches carbs and eats chicken. 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 Needs referral per patient Neuropathy: Endorses - Last DMFE: Will defer re: timing/much of office visit spent on education - will do Diabetes Foot Exam Next Office Visit. 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 Has 3 stents, CABG is scheduled for 02/2025 - Follow Up Cardiology Doctor Ariana LILA: Denies. Listed in history from 2018. Not on CPAP, lost weight since. Gastroparesis: Denies H/o Pancreatitis: Denies MTC Famhx: Denies Denies DKA Hx Hypoglycemic Unawareness: Denies Other: n/a Patient is new to [facility] Patient [place] new to [place] Per chart review saw [facility] Last Office Visit 10/2023. Not seen since and was only seen once CABG is scheduled for 02/2025 Per their note: - Sts I'm not great at following directions - I am against medications Denies any recent hospitalizations Denies any recent surgeries Denies any steroid use recently Patient current complaints include: - Does not have testing supplies - Needs Dilated Diabetes Eye Exam - Due for labs - Not on any Medications - Wants to have A1C under 8.0 by Friday for surgery - we discussed this is unrealistic Review of Systems Constitutional: Negative for activity change, appetite change, fatigue and unexpected weight change. Respiratory: Negative for apnea. Cardiovascular: Negative for palpitations. Gastrointestinal: Negative for constipation, diarrhea, nausea and vomiting. Endocrine: Negative for polydipsia, polyphagia and polyuria. Neurological: Negative for headaches. Psychiatric/Behavioral: Negative for agitation, confusion and sleep disturbance. ROS was performed at the time of this encounter. Unless noted above in the HPI, the ROS is negative. Allergies[1] Current Medications[2] Medical History[3] Social History Tobacco Use Smoking status: Never Smokeless tobacco: Never Substance Use Topics Alcohol use: Yes Alcohol/week: 2.0 standard drinks of alcohol Types: 2 Standard drinks or equivalent per week Surgical History[4] Family History[5] Objective BP 129/78 Pulse 72 Ht 5' 9 (1.753 m) Wt 197 lb (89.4 kg) BMI 29.09 kg/m Physical Exam Vitals reviewed. Constitutional: Appearance: Normal appearance. Comments: Presents with Cardiovascular: Rate and Rhythm: Normal rate and regular rhythm. Pulmonary: Effort: Pulmonary effort is normal. Breath sounds: Normal breath sounds. Neurological: General: No focal deficit present. Mental Status: He is alert and oriented to person, place, and time. Psychiatric: Mood and Affect: Mood normal. Behavior: Behavior normal. Thought Content: Thought content normal. Judgment: Judgment normal. Data Reviewed and Summarized Labs: Lab Results Component Value Date HGBA1C 11.7 (A) 02/24/2025 No results found for: CHLPL, CHOL, CHOLESTEROLT No results found for: TRIG, TRIGLYCERIDE No results found for: HDL, HDLCHOLESTER No results found for: LDL, LDLCALC, LDLCHOLESTER No results found for: EGFR, GFR No results found for: MICROALBCREA, ALBUMINCREAT No results found for: TSH No results found for: [id number] Electronically signed by Richard Marquez PA-C Portions of the information within this encounter were entered using an electronic dictation system. Best attempts were made to edit/proofread the information prior to note completion. Despite the review of information, some errors may remain. If there are questions related to the information contained within the note please contact the signing physician directly. I spent 70 Minutes with the patient re: lots of education, not on Medications so needed to explain insulins and Diabetes goals, started Continuous Glucose Monitor, long discussion with lots of questions, chart review, pre-charting, charting, etc. [1] Allergies Allergen Reactions Atorvastatin Other Other Reaction(s): Other: See Comments Muscle aches [2] Current Outpatient Medications: aspirin 81 MG EC tablet, Take 81 mg by mouth daily., Disp: , Rfl: atorvastatin (Lipitor) 40 MG tablet, Take 40 mg by mouth daily., Disp: , Rfl: chlorhexidine (Peridex) 0.12 % solution, Use 15 mL in the mouth or throat Once for 1 dose. Swish for 30 seconds and spit out the night before surgery. Do not swallow., Disp: 15 mL, Rfl: 0 metoprolol succinate XL (Toprol-XL) 50 MG 24 hr tablet, Take 50 mg by mouth daily. Do not crush or chew., Disp: , Rfl: mupirocin (Bactroban) 2 % ointment, Apply liberal amount per nostril the night before surgery and then again the morning of surgery, Disp: 1 g, Rfl: 0 Alcohol Swabs pads, For daily blood sugar monitoring 4 times daily for Continuous Glucose Monitor failure, Disp: 400 each, Rfl: 3 Blood Glucose Monitoring Suppl (True Metrix Meter) w/Device kit, 1 each 4 times daily. For daily blood sugar monitoring 4 times daily for Continuous Glucose Monitor failure, Disp: 1 kit, Rfl: 0 Continuous Glucose Sensor ([place]com G7 Sensor) [facility] [place] with a new sensor every 10 days., Disp: 9 each, Rfl: 3 glucagon 1 MG injection, Inject 1 mL (1 mg) under the skin Once as needed for low blood sugar., Disp: 1 kit, Rfl: 1 glucose blood (True Metrix Blood Glucose Test) test strip, For daily blood sugar monitoring 4 times daily for Continuous Glucose Monitor failure, Disp: 400 each, Rfl: 3 insulin glargine (Lantus) 100 UNIT/ML pen, Inject 10 Units under the skin Nightly., Disp: 9 mL, Rfl: 3 insulin lispro (HumaLOG) 100 UNIT/ML pen injection, Inject 3 Units under the skin 3 times daily (before meals)., Disp: 8.1 mL, Rfl: 3 insulin pen needle 32G X 4 MM misc, 4 times daily, Disp: 400 each, Rfl: 3 Lancets 33G misc, 1 each 4 times daily. For daily blood sugar monitoring 4 times daily for Continuous Glucose Monitor failure, Disp: 400 each, Rfl: 3 [3] Past Medical History: Diagnosis Date Coronary artery disease Diabetes mellitus (HCC) Erectile dysfunction Hyperlipidemia Hypertension Neuropathy LILA (obstructive sleep apnea) [4] Past Surgical History: Procedure Laterality Date CORONARY ANGIOPLASTY 05/2012 [5] Family History Problem Relation Name Age of Onset Diabetes Mother Coronary artery disease Mother Heart attack Mother Stroke Mother Diabetes Father documented in this encounter [employer] 02-24-2025 Instructions Richard Marquez PA-C - 02/24/2025 11:00 AM EDT To do: - START Lantus 10 units once per day - START Humalog or Novolog - 3 units three times daily before meals. IF eating a full meal with carbs and Blood Glucose over 70. - Get labs fasting MARCY - Dexcoms are sent. Please bring it to every visit. Message me in 1 week after these changes so we can see if we need to make adjustments OR sooner if Blood Glucose consistently under 70. - Please talk to them at the front about MyChart - Please schedule Diabetes Education - Please schedule eye Appointment - Please have them print labs and bring with you. [facility] encounter Note We have been unable to reach your patient to schedule their testing. Test Name: Vascular US carotid artery duplex bilateral and Vascular US lower extremity vein mapping for bypass bilateral 1st Attempt: 8.7.25 2nd Attempt: 8.12.25 [facility] 02-22-2025 Miscellaneous Notes We have been unable to reach your patient to schedule their testing. Test Name: Vascular US carotid artery duplex bilateral and Vascular US lower extremity vein mapping for bypass bilateral 1st Attempt: 8.7.25 2nd Attempt: 8.12.25 documented in this encounter [facility] 02-21-2025 Telephone encounter Note Surg proc orders placed Meds e-scribed TROY Fregoso CNP 02/21/25 [facility] 02-21-2025 Miscellaneous Notes Surg proc orders placed Meds e-scribed TROY Fregoso CNP 02/21/25 Prep for Procedure Order Request: 02/16/25 Surgeon: Dr. Lane Surgery/Procedure: CABG, KWAME Diagnosis: CAD Plan Admit: Yes PAT Appointment: TBS Date if yes: Date of Surgery/Procedure: 02/28/2025 Medications: [] Hold as directed by CTS: [x] Per PAT protocol Pt needs A1c Drawn Medication needed prescribed: [] None [x] Nasal ointment and mouth rinse [] Other: documented in this encounter [facility] 02-16-2025 Note Prep for Procedure O rder Request: 02/16/25 Surgeon: Dr. Lane Surgery/Procedure: CABG, KWAME Diagnosis: CAD Plan Admit: Yes PAT Appointment: TBS Date if yes: Date of Surgery/Procedure: 02/28/2025 Medications: [] Hold as directed by CTS: [x] Per PAT protocol Pt needs A1c Drawn Medication needed prescribed: [] None [x] Nasal ointment and mouth rinse [] Other: [facility] 02-16-2025 Telephone encounter Note Prep for Procedure Order Request: 02/16/25 Surgeon: Dr. Lane Surgery/Procedure: CABG, KWAME Diagnosis: CAD Plan Admit: Yes PAT Appointment: TBS Date if yes: Date of Surgery/Procedure: 02/28/2025 Medications: [] Hold as directed by CTS: [x] Per PAT protocol Pt needs A1c Drawn Medication needed prescribed: [] None [x] Nasal ointment and mouth rinse [] Other: [facility] 02-09-2025 Note Orders Placed This E ncounter Procedures CT chest wo IV contrast Standing Status: Future Expected Date: 02/09/2025 Expiration Date: 02/09/2026 Record Decision Support information?: No Decision Support Exception: Emergency Medical Condition (MA) [1] [facility] Standing Status: Future Expected Date: 02/09/2025 Expiration Date: 08/12/2025 Referral Priority: Urgent Referral Type: Consultation Referral Reason: Specialty Services Required Requested Specialty: Endocrinology Number of Visits Requested: 1 Vascular US carotid artery duplex bilateral Standing Status: Future Expected Date: 02/09/2025 Expiration Date: 02/09/2027 Vascular US lower extremity vein mapping for bypass bilateral Standing Status: Future Expected Date: 02/09/2025 Expiration Date: 02/09/2027 Vascular US palmar arch evaluation Standing Status: Future Expected Date: 02/09/2025 Expiration Date: 02/09/2027 [facility] 02-09-2025 History of Present illness Narrative Images from the original note were not included. [facility] CARDIOVASCULAR & THORACIC SURGERY [address] [facility] [address] Dept: [phone] Dept Loc: [phone] Visit type: New Reason for Visit: Evaluation of multivessel coronary artery disease Assessment: 1. Coronary artery disease of [place] artery of [place] heart with stable angina pectoris (HCC) Recommendations: This is a 59-year-old male with history of hypertension, diabetes, hyperlipidemia with chest pain with exertion for the past 6 months. He saw cardiology and had an abnormal stress test, left heart cath showed significant multivessel coronary disease including the RCA, LAD, and circumflex territories. Stress echo shows preserved ejection fraction, no significant valvular abnormalities. Agree for the need for coronary artery bypass grafting this gentleman. On my review of the heart cath, the patient has adequate targets for bypass. Plan will be for use of left internal mammary artery, potential multi arterial grafting, and additional saphenous vein for conduit. STS risk for CABG in this patient with the information we have is low at 0.3% risk of 30-day mortality. Patient has TTE scheduled tomorrow, will follow the results. The following studies will be ordered prior to surgery: - Radial artery studies - Bilateral carotid artery ultrasound - CT of the chest without IV contrast - Vein mapping - Endocrinology referral for presumed uncontrolled diabetes. Last hemoglobin A1c was over 12%. This will need to be better controlled prior to scheduling surgery. Discussed risks and benefits of the procedure with the patient, and he wishes to proceed forward. STS Risk Calculator Procedure Type: Isolated CABG Perioperative Outcome Estimate % Operative Mortality 0.301% Morbidity & Mortality 2.36% Stroke 0.454% Renal Failure 0.413% Reoperation 1.38% Prolonged Ventilation 1.09% Deep Sternal Wound Infection 0.135% Long Hospital Stay (>14 days) 0.929% Short Hospital Stay (<6 days)* 75.7% History of Present Illness Wallace Turk is a 59 y.o. male referred by Dr. Enrique for CABG. Per note, pt has history of CAD s/p PCI of the LAD in May 2012, HTN, DM, hyperlipidemia. Pt had not had cardiac follow up for years and discontinued all medications other than aspirin. He saw Cardiology on 01/19/25 with complaints of chest discomfort with exertion. Pt had stress test in 2022 that was abnormal with moderately severe inferior wall defect suggesting an infarct. An echocardiogram demonstrated preserved EF. Pt underwent heart catheterization on 02/07/25 which demonstrated severe triple vessel disease with left ventricular systolic dysfunction. A1C drawn on 09/10/23 was 12%. Echocardiogram is scheduled on 02/10/25 at [place]. Pt is here now for an evaluation. Past Medical History Medical History[1] Past Surgical History Surgical History[2] Family History Family History[3] Social History Social History[4] Allergies Allergies[5] Medications Current Medications[6] Review of Systems Review of Systems Respiratory: Positive for chest tightness (intermittent on exertion). Neurological: Positive for light-headedness (intermittent on exertion). All other systems reviewed and are negative. Physical Exam Vitals: BP 132/83 (BP Location: Left arm, Patient Position: Sitting, BP Cuff Size: Large adult) Pulse 81 Ht 5' 10 (1.778 m) Wt 194 lb (88 kg) BMI 27.84 kg/m Constitutional: General: Not in acute distress. Appearance: Normal appearance. Not toxic-appearing. Ear, nose, mouth: Bilateral external ear and nose normal. Nose: Nose normal. Mouth: Appearance normal, no bleeding, moist mucus membranes Eyes: General: No scleral icterus. No discharge from bilateral eyes Extraocular Movements: Extraocular movements intact. Pupils equal and reactive bilaterally Cardiovascular: Heart: Regular rhythm. Normal heart sounds. Vascular: No carotid bruit. Edema: No edema in bilateral lower extremities Pulmonary: Effort: Pulmonary effort is normal. No respiratory distress. Breath sounds: Normal breath sounds. No wheezing. Chest wall: No tenderness. Abdominal: Appearance: Not distended Palpations: There is no abdominal tenderness, no guarding. Musculoskeletal: Bilateral upper and lower extremities: Normal range of motion, no deformity Head: Normocephalic and atraumatic. Neck: Normal range of motion and neck supple. No muscular tenderness. Lymphadenopathy: Cervical: No cervical adenopathy. Skin: General: Skin is warm and dry. Coloration: Skin is not jaundiced. Neurological: General: No focal deficit present. Cranial Nerves: No obvious cranial nerve deficit. Psychiatric: Mood and Affect: Mood normal. Thought Content: Thought content normal. Patient has good judgement and insight Mental Status: Alert and oriented to place, person, and time. Labs No results found for: WBC, HGB, PLT, NA, K, CREATININE Imaging Heart Catheterization 02/07/25 Conclusion TTE 12/26/22 FINDINGS: LEFT VENTRICLE The left ventricle is normal in size. Left ventricular systolic function is normal. Global LV myocardial strain is normal. Grade I left ventricular diastolic dysfunction. Mitral annular lateral E/e': 6.5. Mitral annular septal E/e': 8.1. Wall Motion: All scored segments are normal. RIGHT VENTRICLE The right ventricle is normal in size. Right ventricular systolic function is normal. RV systolic tissue Doppler velocity is 13.0 cm/s. Tricuspid annular displacement is 2.1 cm. Estimated right atrial pressure is not included as the IVC was not seen. LEFT ATRIUM The left atrial cavity is normal in size. RIGHT ATRIUM The right atrial cavity is normal in size. MITRAL VALVE The mitral valve leaflets are structurally normal. There is no mitral valve regurgitation. The pressure half time is 53 msec. The peak mitral E/A ratio is 0.67. The average mitral E/e' ratio is 7.3. The mitral flow deceleration time is 182 msec. TRICUSPID VALVE The tricuspid valve leaflets are structurally normal. There is no tricuspid valve regurgitation. AORTIC VALVE There is no aortic valve regurgitation. Tricuspid aortic valve. There is mild thickening. The peak gradient is 8 mmHg (peak velocity = 143.4 cm/s). PULMONIC VALVE The pulmonic valve cusps are structurally normal. There is trace pulmonic valve regurgitation. AORTA The visualized aorta is normal in size. Measurements - Mid ascending aorta 3.1 cm. PERICARDIUM There is no pericardial effusion. There is an epicardial fat pad. CONCLUSIONS: - Exam indication: Abnormal ECG - The left ventricle is normal in size. Left ventricular systolic function is normal. EF = 56 5% (2D biplane) Grade I left ventricular diastolic dysfunction. - The right ventricle is normal in size. Right ventricular systolic function is normal. - There are no significant valvular abnormalities. Stress Test 12/16/22 CONCLUSIONS: 1. SPECT Perfusion Study: Abnormal. The inferior wall defect is moderately severe and most consistent with an infarct. Suggest getting resting Echocardiogram and if there is good inferior wall motion, this finding maybe due to attenuation. 2. There is no scintigraphic evidence for inducible ischemia. 3. There is a small (<10%) fixed perfusion defect in the RCA territory. 4. Left ventricle is normal in size. The left ventricle systolic function is normal. 5. Right ventricle is normal in size. The right ventricle systolic function is normal. 6. This is a low risk scan. Patient Care Team: PCP: No PCP Cardiology: Az Enrique MD Disclaimer INFORMED CONSENT:The nature and purpose of the proposed treatment or procedure have been discussed. The risks and benefits of the proposed treatment or procedures have been reviewed. Alternatives have been reviewed in addition to the risks and benefits of not receiving treatments or undergoing procedures. Pursuant to this discussion, the patient agrees to undergo the proposed treatment or procedure. Captured images seen in this note from are not a substitute for a comprehensive interpretation of the entire data set as reflected by the interpreting physician with regard to radiology, echocardiography, and other diagnostic images. This note may have been dictated using [employer] Practice Edition 2.6 and/or [employer] Voice Recognition Feature. The document was proofread, however unrecognized voice recognition director distribution errors may be present. [1] Past Medical History: Diagnosis Date Coronary artery disease Diabetes mellitus (HCC) Erectile dysfunction Hyperlipidemia Hypertension Neuropathy LILA (obstructive sleep apnea) [2] Past Surgical History: Procedure Laterality Date CORONARY ANGIOPLASTY 05/2012 [3] Family History Problem Relation Name Age of Onset Diabetes Mother Coronary artery disease Mother Heart attack Mother Stroke Mother Diabetes Father [4] Social History Tobacco Use Smoking status: Never Smokeless tobacco: Never Substance Use Topics Alcohol use: Yes Alcohol/week: 2.0 standard drinks of alcohol Types: 2 Standard drinks or equivalent per week Drug use: Not Currently [5] Allergies Allergen Reactions Atorvastatin Other Other Reaction(s): Other: See Comments Muscle aches [6] Current Outpatient Medications: aspirin 81 MG EC tablet, Take 81 mg by mouth daily., Disp: , Rfl: atorvastatin (Lipitor) 40 MG tablet, Take 40 mg by mouth daily., Disp: , Rfl: metoprolol succinate XL (Toprol-XL) 50 MG 24 hr tablet, Take 50 mg by mouth daily. Do not crush or chew., Disp: , Rfl: documented in this encounter [facility] 02-09-2025 Note [facility] CARDIOVASCULAR & THORACIC SURGERY [address] [facility] [address] Dept: [phone] Dept Loc: [phone] Visit type: New Reason for Visit: Evaluation of multivessel coronary artery disease Assessment: 1. Coronary artery disease of [place] artery of [place] heart with stable angina pectoris (HCC) Recommendations: This is a 59-year-old male with history of hypertension, diabetes, hyperlipidemia with chest pain with exertion for the past 6 months. He saw cardiology and had an abnormal stress test, left heart cath showed significant multivessel coronary disease including the RCA, LAD, and circumflex territories. Stress echo shows preserved ejection fraction, no significant valvular abnormalities. Agree for the need for coronary artery bypass grafting this gentleman. On my review of the heart cath, the patient has adequate targets for bypass. Plan will be for use of left internal mammary artery, potential multi arterial grafting, and additional saphenous vein for conduit. STS risk for CABG in this patient with the information we have is low at 0.3% risk of 30-day mortality. Patient has TTE scheduled tomorrow, will follow the results. The following studies will be ordered prior to surgery: - Radial artery studies - Bilateral carotid artery ultrasound - CT of the chest without IV contrast - Vein mapping - Endocrinology referral for presumed uncontrolled diabetes. Last hemoglobin A1c was over 12%. This will need to be better controlled prior to scheduling surgery. Discussed risks and benefits of the procedure with the patient, and he wishes to proceed forward. STS Risk Calculator Procedure Type: Isolated CABG Perioperative Outcome Estimate % Operative Mortality 0.301% Morbidity & Mortality 2.36% Stroke 0.454% Renal Failure 0.413% Reoperation 1.38% Prolonged Ventilation 1.09% Deep Sternal Wound Infection 0.135% Long Hospital Stay (>14 days) 0.929% Short Hospital Stay (<6 days)* 75.7% History of Present Illness aWllace Turk is a 59 y.o. male referred by Dr. Enrique for CABG. Per note, pt has history of CAD s/p PCI of the LAD in May 2012, HTN, DM, hyperlipidemia. Pt had not had cardiac follow up for years and discontinued all medications other than aspirin. He saw Cardiology on 01/19/25 with complaints of chest discomfort with exertion. Pt had stress test in 2022 that was abnormal with moderately severe inferior wall defect suggesting an infarct. An echocardiogram demonstrated preserved EF. Pt underwent heart catheterization on 02/07/25 which demonstrated severe triple vessel disease with left ventricular systolic dysfunction. A1C drawn on 09/10/23 was 12%. Echocardiogram is scheduled on 02/10/25 at [place]. Pt is here now for an evaluation. Past Medical History Medical History[1] Past Surgical History Surgical History[2] Family History Family History[3] Social History Social History[4] Allergies Allergies[5] Medications Current Medications[6] Review of Systems Review of Systems Respiratory: Positive for chest tightness (intermittent on exertion). Neurological: Positive for light-headedness (intermittent on exertion). All other systems reviewed and are negative. Physical Exam Vitals: BP 132/83 (BP Location: Left arm, Patient Position: Sitting, BP Cuff Size: Large adult) Pulse 81 Ht 5' 10 (1.778 m) Wt 194 lb (88 kg) BMI 27.84 kg/m? Constitutional: General: Not in acute distress. Appearance: Normal appearance. Not toxic-appearing. Ear, nose, mouth: Bilateral external ear and nose normal. Nose: Nose normal. Mouth: Appearance normal, no bleeding, moist mucus membranes Eyes: General: No scleral icterus. No discharge from bilateral eyes Extraocular Movements: Extraocular movements intact. Pupils equal and reactive bilaterally Cardiovascular: Heart: Regular rhythm. Normal heart sounds. Vascular: No carotid bruit. Edema: No edema in bilateral lower extremities Pulmonary: Effort: Pulmonary effort is normal. No respiratory distress. Breath sounds: Normal breath sounds. No wheezing. Chest wall: No tenderness. Abdominal: Appearance: Not distended Palpations: There is no abdominal tenderness, no guarding. Musculoskeletal: Bilateral upper and lower extremities: Normal range of motion, no deformity Head: Normocephalic and atraumatic. Neck: Normal range of motion and neck supple. No muscular tenderness. Lymphadenopathy: Cervical: No cervical adenopathy. Skin: General: Skin is warm and dry. Coloration: Skin is not jaundiced. Neurological: General: No focal deficit present. Cranial Nerves: No obvious cranial nerve deficit. Psychiatric: Mood and Affect: Mood normal. Thought Content: Thought content normal. Patient has good judgement and insight Mental Status: Alert and oriented to place, person, and time. Labs (more content not included)... [facility] 01-19-2025 Radiology Diagnostic study note [facility] [address] [place] [address] Chest PA and Lateral MR#: [id number] Acct: [id number] Name: WALLACE TURK Rep #: [id number] : 1965 M 59 From: Piper Cui MD PCP: Dr. Oswald Quarles MD Status: REG CLI Study:Chest PA and Lateral Date of Exam: 01/19/25 Exam# [id number] Ordering Dr: Nitin Enrique MD PROCEDURE: CHEST PA AND LATERAL 01/19/2025 REASON FOR EXAM: CAD TECHNIQUE: CHEST PA AND LATERAL COMPARISON: 07/08/2020 FINDINGS: No focal consolidation. Bibasilar subsegmental atelectasis. No pleural effusion or pneumothorax. Cardiac silhouette is within normal limits. No acute fracture. RAD/Chest PA and Lateral IMPRESSION: No focal consolidations. Bibasilar subsegmental atelectasis. Reading Location: [facility] CC: Dr. Az Enrique MD; Dr. Oswald Quarles MD ~ District Agent: Signed [facility] 01-19-2025 Evaluation note Diagnosis Onset Date Resolution CAD (coronary artery disease) acute January 19, 2025 3:18pm Chest pain acute January 19, 2025 3:18pm Hyperlipidemia chronic January 19, 2025 3:18pm Hypertension chronic January 19 3:18pm [place] [employer] Work Phone: 1(851) 145-915807-09-2025 Evaluation note* Diagnosis Onset Date Resolution Status Admit Date CAD (coronary artery disease) acute January 19, 2025 3:18pm Chest pain acute January 19, 2025 3:18pm Hyperlipidemia chronic January 19, 2025 3:18pm Hypertension chronic January 19 3:18pm CAD (coronary artery disease) acute March 17, 2025 3:21pm [facility] Work Phone: 1(696) 832-191407-09-2025 Progress [facility] [address] [place] [address] OFFICE VISIT Date of Service: 01/19/25 MR#: [id number] Acct: [id number] Name: WALLACE TURK Rep #: [id number] : 1965 Provider: Dr. Ramez Enrique MD Age/Sex: 59/M Location: [facility] Status: Signed HPI HPI History of Present Illness Details: 59-year-old man with a history of coronary artery disease status post PCI of theLAD in May 2012. He has not had any major cardiac follow-up in a number ofyears. He does have a history of hypertension, diabetes, hyperlipidemia, who has discontinued all his medications other than aspirin. 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 He says that more recently he has developed chest discomfort which is usually with exertion and goes away with rest and him taking a deep breath. He has not had any dizziness or diaphoresis or near syncope or syncope. He does not like the waythe medications made him feel and so he discontinued taking them. He did have a stress test in December 2022which was abnormal with moderately severe inferior wall defect suggesting an infarct. His stents were in the LAD distribution. An echocardiogram demonstrated preserved ejection fraction. His mostrecent lipid profile demonstrates a total cholesterol 160 HDL 44 LDL of 82. His physical exam todayis unremarkable carotids are normal his electrocardiogram demonstrates sinus rhythm with a rate of 92 bpm and evidence of an anterior infarct. Intake Vital Signs 01/19/25 15:24 Height 5 ft 10 in Weight: 202 lb BMI 29.0 BP 144/88 H Blood Pressure Location Lt brachial Position Sitting Respiration 16 Pulse 93 Pulse Source Monitor Intake Visit Reasons: EST (SELF) Skin Grader Required: No Accompanied by: Self Is patient in pain?: No Allergies atorvastatin (From Lipitor) Adverse Reaction (Severe, Verified 01/19/25 16:11) myalgias Medications ?Medication ?Instructions ?Recorded ?Confirmed ?Type aspirin 81 mg tablet,delayed 81 mg PO QDAY 01/19/25 History release (Adult Aspirin Regimen) [facility] Medical History Erectile dysfunction CAD (coronary artery disease) LILA (obstructive sleep apnea) Neuropathy Obesity (BMI 30.0-34.9) Hyperlipidemia Hypertension Diabetes mellitus, type II Surgical History CAD S/P percutaneous coronary angioplasty (~05/2012) Family History Mother Diabetes CAD (coronary artery disease) Myocardial infarction CVA (cerebral vascular accident) Father Diabetes Social History Smoking Status: Never smoker alcohol intake: current ROS Const Const: Negative for fatigue, weakness, headache(s), daytime sleepiness or difficulty sleeping ENT ENT: Negative for headache(s), dizziness or Nosebleed/epistaxis Cardio Chest Pain: Yes Frequency: other (intermittant) Character: sharp Onset: exercise Location: mid sternal and left chest Duration: minutes Exacerbation: exercise Relieving: rest Recurrence: exercise and activity Palpitations: No Edema: None Resp Respiratory: Positive for SOB with activity; Negative for SOB at rest, SOB orthopnea\SOB lying down or Cough GI GI: Negative nausea, vomiting or heartburn Neuro Neuro: Negative for dizziness, lightheadedness, near syncope, headache(s) or weakness Endo Endo: Negative for fatigue Cardiology Exam Const Appearance: cooperative, healthy appearing, no acute distress, well developed and well groomed Nutritional Appearance: average body habitus and well nourished Orientation: alert, awake and oriented x3 Head Head: normal to inspection, normocephalic and atraumatic Ears: hearing grossly normal bilaterally and external ears normal Nose: external nose normal, nares normal, nasal mucous membranes and turbinates normal, septum normal and no nasal discharge Face and Sinus: face symmetric Mouth: oral mucosae normal, tongue normal, oropharynx normal and moist mucous membranes Teeth and gingiva: dentition normal Throat: posterior oropharynx normal, tonsils normal and uvula midline Eyes General: appearance normal, both eyes and all related structures Eyelids: eyelids normal Conjunctivae: conjunctivae normal Pupils: PERRL, normal by confrontation and accommodation normal EOM: EOM intact bilaterally Neck Neck: normal visual inspection, trachea midline and no JVD JVD: +5 Carotids: normal carotid upstroke and bounding pulses Chest Chest inspection: normal inspection of the chest, symmetric chest movement and normal respiratory effort Auscultation: Bilateral: Clear to Auscultation Cardio Palpation: normal PMI Rate: regular rate Rhythm: regular rhythm Heart sounds: S1 normal, S2 normal and normal, physiologic split S2; Negative rub, gallop or murmur GI GI: normal to inspection, soft, no hepatosplenomegaly and bowel sounds present Neuro General: patient alert, patient awake, patient oriented x3, gait normal, moves all extremities and no focal sensory deficit Skin Skin: no rashes or lesions noted Extremities Pulses: Normal: Right Femoral Pulse, Left Femoral Pulse, Right Dorsalis Pedis Pulse, Left Dorsalis Pedis Pulse, Right Posterior Tibial Pulse, Left Posterior Tibial Pulse, Right Radial Pulse and Left Radial Pulse Lower Extremity Edema: None: Bilateral Musculoskel Musculoskeletal: No joint tenderness Psych Psychological: normal affect Supplemental Info Supplemental Information Echocardiogram 12/26/22 ([facility]) Impression The left ventricle is normal in size. Left ventricular systolic function is normal. EF=56%. Grade Ileft ventricular diastolic dysfunction. The right ventricle is normal in size. Right ventricular systolic function is normal. There are no significant valvular abnormalities. Stress Test 12/16/22 ([facility]) Conclusions SPECT Perfusion Study: Abnormal. The inferior wall defect is moderately severe and most consistent with an infarct. Suggest getting resting Echo and if there is good inferior wall motion, this finding may be due to attenuation. There is no scintigraphic evidence for inducible ischemia. There is a small (<10%) fixed perfusion defect in the RCA territory. Left ventricle is normal in size. The left ventricle systolic function is normal. Right ventricle is normal in size. The right ventricle systolic function is normal. This is a low risk scan. CTA Chest 07/08/20 FINDINGS: Coronary arteries are severely diseased. Cardiac chambers are normal in size and shape with normal pericardium. Labs: No Data to Display Diagnostics: Chest X-Ray Chest CTA Pulmonary: No Data to Display Past Visits: Cardiology Visit 01/19/25 Assessment and Plan Assessment and Plan (1) CAD (coronary artery disease): Status: Acute Plan: He does have a history of known coronary artery disease. He unfortunately has not been compliant with his medications and has fairly typical angina. My recommendation will be to pursue a left heart catheterization. I do not think that he wants to take medications right just yet. Depending on the findings from the cardiac catheterization further recommendations will be made. (2) Hypertension: Status: Chronic Qualifiers: Hypertension type: essential hypertension Qualified Code(s): I10 - Essential (primary) hypertension Plan: He does have a history of hypertension his blood pressure does not appear to be under the best control. I will wait to restart his medications after the cardiac catheterization. (3) Hyperlipidemia: Status: Chronic Qualifiers: Hyperlipidemia type: unspecified Qualified Code(s): E78.5 - Hyperlipidemia, unspecified Plan: He does have a history of hyperlipidemia and once again we will restart medications after the cardiac catheterization. My feeling is that he would havemore impetus to do this. (4) Chest pain: Status: Acute Plan: He does present with chest discomfort which appears to be fairly typical of angina. He has not had any rest angina. Ideally he needs to be back on a beta- liliana aspirin as well as a high intensity statin. We will pursue the cardiac catheterization and an echocardiogram and depending on the findings further recommendations made. Orders: Orders 12 Lead EKG performed by [facility] Today E78.5 - Hyperlipidemia, unspecified, I10 - Essential (primary) hypertension, I25.10 - Atherosclerotic heart disease of [place] coronary artery without angina pectoris Basic Metabolic Profile (BMP) Today R07.9 - Chest pain, unspecified CBC W/Diff, Automated Today R07.9 - Chest pain, unspecified Left Heart Cath/COR/LV Percut Today R07.9 - Chest pain, unspecified Chest PA and Lateral Today I25.10 - Atherosclerotic heart disease of [place] coronary artery withoutangina pectoris Echo Complete Today I25.10 - Atherosclerotic heart disease of [place] coronary artery without anginapectoris, R07.9 - Chest pain, unspecified Plan Details Follow Up: 3 Months (r) Coding Level of Care Code Off vis,new,level 4 Diagnoses CAD (coronary artery disease) I25.10 Essential hypertension I10 Hypertension type: essential hypertension Hyperlipidemia, unspecified hyperlipidemia type E78.5 Hyperlipidemia type: unspecified Chest pain R07.9 Coding Level of Care Code Off vis,new,level 4 Diagnoses CAD (coronary artery disease) I25.10 Essential hypertension I10 Hypertension type: essential hypertension Hyperlipidemia, unspecified hyperlipidemia type E78.5 Hyperlipidemia type: unspecified Chest pain R07.9 01/19/25 1643 D> Date _ Az Enrique MD Cosigner Signature: Date (if applicable) CC: ~ [facility]07-09-2025 Progress note Author Az Enrique [facility] Note Date/Time January 19, 2025 4:43p m [facility] [address] [place] [address] OFFICE VISIT Date of Service: 01/19/25 MR#: [id number] Acct: [id number] Name: WALLACE TURK Rep #: [id number] : 1965 Provider: Dr. Ramez Enrique MD Age/Sex: 59/M Location: [facility] Status: Signed HPI HPI History of Present Illness Details: 59-year-old man with a history of coronary artery disease status post PCI of theLAD in May 2012. He has not had any major cardiac follow-up in a number ofyears. He does have a history of hypertension, diabetes, hyperlipidemia, who has discontinued all his medications other than aspirin. 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 He says that more recently he has developed chest discomfort which is usually with exertion and goes away with rest and him taking a deep breath. He has not had any dizziness or diaphoresis or near syncope or syncope. He does not like the way the medications made him feel and so he discontinued taking them. He did have a stress test in December 2022which was abnormal with moderately severe inferior wall defect suggesting an infarct. His stents were in the LAD distribution. An echocardiogram demonstrated preserved ejection fraction. His most recent lipid profile demonstrates a total cholesterol 160 HDL 44 LDL of 82. His physical exam today is unremarkable carotids are normal his electrocardiogram demonstrates sinus rhythm with a rate of 92 bpm and evidence of an anterior infarct. Intake Vital Signs 01/19/25 15:24 Height 5 ft 10 in Weight: 202 lb BMI 29.0 BP 144/88 H Blood Pressure Location Lt brachial Position Sitting Respiration 16 Pulse 93 Pulse Source Monitor Intake Visit Reasons: EST (SELF) Skin Grader Required: No Accompanied by: Self Is patient in pain?: No Allergies atorvastatin (From Lipitor) Adverse Reaction (Severe, Verified 01/19/25 16:11) myalgias Medications ?Medication ?Instructions ?Recorded ?Confirmed ?Type aspirin 81 mg tablet,delayed 81 mg PO QDAY 01/19/25 History release (Adult Aspirin Regimen) [facility] Medical History Erectile dysfunction CAD (coronary artery disease) LILA (obstructive sleep apnea) Neuropathy Obesity (BMI 30.0-34.9) Hyperlipidemia Hypertension Diabetes mellitus, type II Surgical History CAD S/P percutaneous coronary angioplasty (~05/2012) Family History Mother Diabetes CAD (coronary artery disease) Myocardial infarction CVA (cerebral vascular accident) Father Diabetes Social History Smoking Status: Never smoker alcohol intake: current ROS Const Const: Negative for fatigue, weakness, headache(s), daytime sleepiness or difficulty sleeping ENT ENT: Negative for headache(s), dizziness or Nosebleed/epistaxis Cardio Chest Pain: Yes Frequency: other (intermittant) Character: sharp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 Procedure Laterality Date PAST SURGICAL HISTORY OF 05/2012 3 stents PAST SURGICAL HISTORY OF Rt achillis repair FAMILY HISTORY Problem Relation Age of Onset Diabetes Mother Coronary Artery Disease Mother of [place] at 70 Lipids Mother Stroke Mother Diabetes Father Alzheimer's Disease Paternal Grandfather Social History Tobacco Use Smoking status: Never Smokeless tobacco: Current Types: Chew Tobacco comments: can of chew per day Vaping Use Vaping Use: Never used Substance Use Topics Alcohol use: Yes Comment: on occasion Cardiac Risk Factors: age (male over 45, female over 55), hyperlipidemia, obesity, diabetes, hypertension, family history of CAD ALLERGIES Allergen Reactions [place] Itching Watermelon Swelling Lipitor [Atorvastat* Other: See Comments Muscle aches Medications: Current Outpatient Medications Medication Sig Dispense Refill lisinopril 2.5 mg tablet Take 2.5 mg by mouth once daily. pioglitazone (ACTOS) 15 mg tablet Take 1 tablet by mouth once daily. 30 tablet 11 rosuvastatin (CRESTOR) 40 mg tablet Take 1 tablet by mouth daily at bedtime. 90 tablet 1 sildenafil (VIAGRA) 100 mg tablet Take 1 tablet by mouth as needed. 30 tablet 5 aspirin, enteric coated (ASPIRIN, ENTERIC COATED) 325 mg EC tablet Take 0.5 tablets by mouth once daily. Take with food. flash glucose sensor (FREESTYLE EDUARDO 14 DAY SENSOR) kit Use to check blood sugars three times daily 2 Kit 3 Lancets lancets Test Two times a day. Insulin Dep? Yes E11.9 DM 2 200 Each 4 blood sugar diagnostic (BLOOD GLUCOSE TEST) test strip Test 2 times daily, Insulin Dep? No E11.9 DM 2 200 Strip 4 multivitamin tablet Take 1 tablet by mouth once daily. No current facility-administered medications for this visit. Review of Systems Constitutional: Negative for chills, diaphoresis, fever, malaise/fatigue and weight loss. HENT: Negative for congestion, ear pain, nosebleeds, sinus pain and sore throat. Eyes: Negative for pain. Respiratory: Negative for cough, shortness of breath and wheezing. Cardiovascular: Negative for chest pain, palpitations and leg swelling. Gastrointestinal: Negative for abdominal pain, blood in stool and melena. Genitourinary: Negative for hematuria. Musculoskeletal: Negative for falls. Neurological: Negative for dizziness, tingling, sensory change, (more content not included)...[facility]03-02-2023 History of Present illness Narrative* Liliana Rios PA-C - 09/12/2022 7:49 AM EST Chief Complaint Patient presents with: Follow Up: 1 month FU BP HPI Wallace Turk is a 57 year old male who presents here today for BP recheck. Patient was seen for PE in Aug and had stopped all his meds because he changed his lifestyle and was feeling good. He ended up agreeing to go back on lisinopril He states he feels great. Last 5 Encounter Wt Readings: Date: Wt: 09/12/2022 100.7 kg (222 lb) 08/14/2022 101.6 kg (224 lb) 03/08/2022 105.2 kg (232 lb) 01/30/2022 106.1 kg (234 lb) 10/01/2021 109.4 kg (241 lb 3.2 oz) Past medical history, appointments, medications, allergies reviewed. Previous Medical History PAST MEDICAL HISTORY Diagnosis Date Coronary artery disease due to lipid rich plaque 05/10/2015 Sees Rachel Kilgore [employer] DESIGNER with cardiology in [facility]. 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 ([facility]) 05/10/2015 Type 2 diabetes mellitus without retinopathy ([facility]) 06/12/2015 Vitreous floaters of both eyes 06/12/2015 Vitreous floaters of both eyes 06/12/2015 Previous Surgical History PAST SURGICAL HISTORY Procedure Laterality Date PAST SURGICAL HISTORY OF 05/2012 3 stents PAST SURGICAL HISTORY OF Rt achillis repair Family History FAMILY HISTORY Problem Relation Age of Onset Diabetes Mother Coronary Artery Disease Mother of [place] at 70 Lipids Mother Stroke Mother Diabetes Father Alzheimer's Disease Paternal Grandfather Patient Allergies ALLERGIES Allergen Reactions [place] Itching Watermelon Swelling Lipitor [Atorvastat* Other: See Comments Muscle aches Current Medications Current Outpatient Medications on File Prior to Visit Medication Sig lisinopril 2.5 mg tablet Take 2.5 mg by mouth once daily. rosuvastatin (CRESTOR) 40 mg tablet Take 1 tablet by mouth daily at bedtime. aspirin, enteric coated (ASPIRIN, ENTERIC COATED) 325 mg EC tablet Take 0.5 tablets by mouth once daily. Take with food. flash glucose sensor (FREESTYLE EDUARDO 14 DAY SENSOR) kit Use to check blood sugars three times daily Lancets lancets Test Two times a day. Insulin Dep? Yes E11.9 DM 2 blood sugar diagnostic (BLOOD GLUCOSE TEST) test strip Test 2 times daily, Insulin Dep? No E11.9 DM2 multivitamin tablet Take 1 tablet by mouth once daily. sildenafil (VIAGRA) 100 mg tablet Take 1 tablet by mouth as needed. No current facility-administered medications on file prior to visit. Social History Social History Tobacco Use Smoking status: Never Smokeless tobacco: Current Types: Chew Tobacco comments: can of chew per day Vaping Use Vaping Use: Never used Substance Use Topics Alcohol use: Yes Comment: on occasion Review of Symptoms REVIEW OF SYSTEMS See hpi EXAM: BP 126/86 Pulse 86 Resp 16 Wt 100.7 kg (222 lb) SpO2 96% BMI 32.55 kg/m General Appearance: Well appearing, alert, in no acute distress, well-hydrated, well nourished.. Health Maintenance List DILATED RETINAL EXAM due on 08/08/2022 COVID-19 VACCINE(1) due on 01/30/2023 SHINGRIX VACCINE(1 of 2) due on 08/14/2023 HBA1C due on 12/12/2022 BP CONTROLLED (<130/80) due on 01/30/2023 DIABETIC FOOT EXAM due on 08/14/2023 LDL CHOLESTEROL due on 09/12/2023 ANNUAL PCP TEAM CHRONIC DISEASE VISIT due on 09/13/2023 DTAP,TDAP,TD(2 - Td or Tdap) due on 05/19/2024 PROSTATE CANCER SCREENING DISCUSSION due on 09/12/2027 COLORECTAL CANCER SCREENING due on 01/14/2028 PNEUMOCOCCAL(3 - PPSV23 if available, else PCV20) due on 2032 INFLUENZA Completed DEPRESSION ASSESSMENT Completed HEPATITIS B Discontinued URINE ALBUMIN:CREATININE RATIO Discontinued HEPATITIS C SCREENING Discontinued HIV SCREENING Discontinued Data reviewed Component Latest Ref Rng & Units 09/11/2022 WBC 3.70 - 11.00 k/uL 4.66 RBC 4.20 - 6.00 m/uL 5.28 Hemoglobin 13.0 - 17.0 g/dL 15.2 Hematocrit 39.0 - 51.0 % 46.6 MCV 80.0 - 100.0 fL 88.3 MCH 26.0 - 34.0 pg 28.8 MCHC 30.5 - 36.0 g/dL 32.6 RDW-CV 11.5 - 15.0 % 13.0 Platelet Count 150 - 400 k/uL 226 MPV 9.0 - 12.7 fL 11.7 Neut% % 55.8 Abs Neut (ANC) 1.45 - 7.50 k/uL 2.60 Lymph% % 31.5 Abs Lymph 1.00 - 4.00 k/uL 1.47 Pierce% % 8.2 Abs Pierce <0.87 k/uL 0.38 Eosin% % 3.2 Abs Eosin <0.46 k/uL 0.15 Baso% % 0.9 Abs Baso <0.11 k/uL 0.04 Immature Gran % % 0.4 IMMATURE GRANS (ABS) <0.10 k/uL <0.03 NRBC /100 WBC 0.0 Absolute nRBC <0.01 k/uL <0.01 DTYPE Auto Protein, Total 6.3 - 8.0 g/dL 6.9 Albumin 3.9 - 4.9 g/dL 4.3 Calcium 8.5 - 10.2 mg/dL 9.3 Bilirubin, Total 0.2 - 1.3 mg/dL 0.5 Alkaline Phosphatase 38 - 113 U/L 92 AST 14 - 40 U/L 19 ALT 10 - 54 U/L 19 Glucose 74 - 99 mg/dL 202 (H) BUN 9 - 24 mg/dL 17 Creatinine 0.73 - 1.22 mg/dL 0.89 Sodium 136 - 144 mmol/L 139 Potassium 3.7 - 5.1 mmol/L 4.0 Chloride 97 - 105 mmol/L 102 CO2 22 - 30 mmol/L 27 Anion Gap 9 - 18 mmol/L 10 eGFR >=60 mL/min/1.73m 101 Color Yellow Light Yellow Clarity Clear Clear Glucose, Urine Trace, Negative 2+ (A) Bilirubin, Urine Negative Negative Ketones, Urine Trace, Negative Negative Specific [place], Ur 1.005 - 1.030 1.023 Hemoglobin/Blood,Ur Negative, Trace Negative pH, Urine 5.0 - 8.0 5.5 Protein, Urine Trace, Negative Negative Urobilinogen Negative Negative Nitrites Negative Negative Leukest Negative, 25 Elizabet/uL Negative WBC, Urine 0-5 /HPF 0-5 /HPF RBC, Urine 0-3 /HPF 0-3 /HPF Total Cholesterol, Nonfasting <200 mg/dL 100 Triglycerides, Nonfasting <150 mg/dL 86 HDL Cholesterol, Nonfasting >39 mg/dL 41 LDL Cholesterol, Nonfasting <100 mg/dL 42 Non HDL Cholesterol, Nonfasting <130 mg/dL 59 VLDL Cholesterol, Nonfasting <30 mg/dL 17 Total Chol/HDL Ratio, Nonfasting <5.10 mg/dL 2.44 LDL/HDL Ratio, Nonfasting <2.54 mg/dL 1.02 Creatinine, Ur Random (UCRR) 20.0 - 300.0 mg/dL 131.0 Albumin, Urine Random mg/L <12.0 Albumin/Creat Ratio <30 mg/g <9 Hemoglobin A1C 4.3 - 5.6 % 9.0 (H) Estimated Average Glucose mg/dL 212 PSA <2.60 ng/mL 0.46 ASSESSMENT/PLAN: 1. Type 2 diabetes mellitus without retinopathy (HCC) - ICD9: 250.00, ICD10: E11.9 (primary diagnosis) - Uncontrolled - patient does not want to restart metformin and his really set on losing more weight and making the right dietary changes to lower glucose himself. In meantime, he is agreeable to starting actos. He has been eating a lot of fruit which may be negatively effecting his diabetes. Advised to meet with director food and beverage to go over his diet. - CONSULT TO NUTRITION THERAPY - HGB A1C 2. Essential hypertension - ICD9: 401.9, ICD10: I10 - fair control - Continue current medication(s) - Recommended regular aerobic exercise. - Recommend home blood pressure monitoring, to bring results in on next visit - Goal of BP <130/80 - BASIC METABOLIC PNL - URINALYSIS, WITH MICROSCOPIC 3. Mixed hyperlipidemia - ICD9: 272.2, ICD10: E78.2 - improved control - Continue current medication. - LIPID PANEL, NONFASTING 4. Obesity, Class I, BMI 30-34.9 - ICD9: 278.00, ICD10: E66.9 Weight decreasing - Behavioral intervention Follow up as scheduled in December. Liliana Rios PA-C documented in this encounterW[facility]02-[facility]23 Instructions* Patient Instructions* Oswald Quarles MD - 08/14/2022 5:35 PM EST If you want a shingrix vaccine to prevent shingles check with with insurance to see if covered. Please get your diabetic eye exam updated. documented in this encounterWexner [facility] Center02-01-2023 History of Present illness Narrative* Oswald Quarles MD - 08/14/2022 5:02 PM EST Images from the original note were not included. Chief Complaint Patient presents with: Physical HPI Wallace Turk is a 57 year old male who presents here today for Physical. Patient with hx of DM2, HTN, HLP, neuropathy, LILA, obesity CAD and those as below. About a month ago or longer he was getting increased acid reflux and had one night he woke up from sleep and vomited. So he decided to stop all his meds except for his Crestor, baby ASA, Mult Vit andprn viagra. Patient claims it is the best he has felt in a long time. Patient has been working harder on diet changes and exercise for weight loss. He knows he is down at least 10 lbs in the past month. Patient has also stopped wearing a CPAP. Past medical history, appointments, medications, allergies reviewed. Previous Medical History PAST MEDICAL HISTORY Diagnosis Date Coronary artery disease due to lipid rich plaque 05/10/2015 Sees Rachel Kilgore [employer] with cardiology in [facility]. 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/2015 Type 2 diabetes mellitus without retinopathy ([facility]) 06/12/2015 Vitreous floaters of both eyes 06/12/2015 Vitreous floaters of both eyes 06/12/2015 Previous Surgical History PAST SURGICAL HISTORY Procedure Laterality Date PAST SURGICAL HISTORY OF 05/2012 3 stents PAST SURGICAL HISTORY OF Rt achillis repair Family History FAMILY HISTORY Problem Relation Age of Onset Diabetes Mother Coronary Artery Disease Mother of SC at 70 Lipids Mother Stroke Mother Diabetes Father Alzheimer's Disease Paternal Grandfather Patient Allergies ALLERGIES Allergen Reactions [place] Itching Watermelon Swelling Lipitor [Atorvastat* Other: See Comments Muscle aches Current Medications Current Outpatient Medications on File Prior to Visit Medication Sig testosterone enanthate 75 mg/0.5 mL AutoInjector Use once weekly as directed dulaglutide (TRULICITY) 4.5 mg/0.5 mL pen injector Inject 4.5 mg subcutaneously one time a week. rosuvastatin (CRESTOR) 40 mg tablet Take 1 tablet by mouth daily at bedtime. pioglitazone (ACTOS) 45 mg tablet Take 1 tablet by mouth once daily. sildenafil (VIAGRA) 100 mg tablet Take 1 tablet by mouth as needed. lisinopril 2.5 mg tablet Take 1 tablet by mouth once daily. metFORMIN ER (GLUCOPHAGE XR) 500 mg 24 hr tablet Take 4 tablets by mouth daily with breakfast. gabapentin (NEURONTIN) 300 mg capsule Take 1 capsule by mouth daily at bedtime for 30 days. albuterol HFA (PROVENTIL HFA, VENTOLIN HFA) 90 mcg/actuation inhaler INHALE 4 TO 8 PUFFS BY MOUTH EVERY 4 HOURS NEEDED FOR DYSPNEA WHEEZING (Patient not taking: No sig reported) selenium 200 mcg tablet Take 1 tablet by mouth once daily. Magnesium Oxide 250 mg magnesium tab Take 250 mg by mouth once daily. aspirin, enteric coated (ASPIRIN, ENTERIC COATED) 325 mg EC tablet Take 0.5 tablets by mouth once daily. Take with food. flash glucose sensor (Medical Referral SourceSTYLE EDAURDO 14 DAY SENSOR) kit Use to check blood sugars three times daily Lancets lancets Test Two times a day. Insulin Dep? Yes E11.9 DM 2 blood sugar diagnostic (BLOOD GLUCOSE TEST) test strip Test 2 times daily, Insulin Dep? No E11.9 DM2 multivitamin tablet Take 1 tablet by mouth once daily. No current facility-administered medications on file prior to visit. Social History Social History Tobacco Use Smoking status: Never Smokeless tobacco: Current Types: Chew Tobacco comments: can of chew per day Vaping Use Vaping Use: Never used Substance Use Topics Alcohol use: Yes Comment: on occasion Review of Symptoms REVIEW OF SYSTEMS GENERAL: No weight loss, malaise or fevers HEENT: Negative for frequent or significant headaches, No changes in hearing or vision, no nose bleeds or other nasal problems NECK: Negative for lumps, goiter, pain and significant neck swelling RESPIRATORY: Negative for cough, hemoptysis, wheezing, COPD, dyspnea or shortness of breath CARDIOVASCULAR: Negative for chest pain, leg swelling, hypertension, CHF or palpitations GI: No nausea, vomiting, or diarrhea, No heartburn or reflux symptoms, and no blood : No history of dysuria, blood MUSCULOSKELETAL: Negative for new or changes in his typical joint pain or swelling, back pain or muscle pain SKIN: Negative for lesions, rash, and itching PSYCH: Negative for sleep disturbance, mood disorder and recent psychosocial stressors HEMATOLOGY/LYMPHOLOGY: Negative for prolonged bleeding, bruising easily or swollen nodes ENDOCRINE: Negative for cold or heat intolerance, polyuria, polydipsia and goiter. No symptoms of low BS's NEURO: No history of headaches, syncope, paralysis, seizures or tremors EXAM: BP 168/98 (BP Site: Left Arm, BP Position: Sitting, BP Cuff Size: Large Adult) Pulse 82 Resp 16 Ht 175.9 cm (5' 9.25) Wt 101.6 kg (224 lb) BMI 32.84 kg/m Last 30 Encounter Wt Readings: Date: Wt: 08/14/2022 101.6 kg (224 lb) 03/08/2022 105.2 kg (232 lb) 01/30/2022 106.1 kg (234 lb) 10/01/2021 109.4 kg (241 lb 3.2 oz) 07/30/2021 106.6 kg (235 lb) 12/14/2020 107.5 kg (237 lb) 08/04/2020 106.1 kg (233 lb 12.8 oz) 06/07/2020 108 kg (238 lb) 11/25/2019 102.1 kg (225 lb) 07/27/2019 101.6 kg (224 lb) 06/28/2019 99.8 kg (220 lb) 05/10/2019 99.7 kg (219 lb 12.8 oz) 05/03/2019 100.7 kg (222 lb) 03/22/2019 100.4 kg (221 lb 4.8 oz) 02/22/2019 100.9 kg (222 lb 8 oz) 02/09/2019 99.3 kg (219 lb) 09/21/2018 101.2 kg (223 lb) 04/13/2018 102.5 kg (226 lb) 01/07/2018 103 kg (227 lb) 01/01/2018 103 kg (227 lb) 12/15/2017 106.1 kg (233 lb 14.5 oz) 12/11/2017 106.1 kg (234 lb) 02/18/2017 112.9 kg (249 lb) 10/30/2016 109.8 kg (242 lb) 06/19/2016 108.4 kg (239 lb) 01/18/2016 104.8 kg (231 lb) 09/14/2015 103 kg (227 lb) 05/18/2015 103.4 kg (228 lb) 01/17/2015 102.5 kg (226 lb) 09/13/2014 102.1 kg (225 lb) General Appearance: Well appearing, alert, in no acute distress, well-hydrated, well nourished. andObese. Skin: Skin color, texture, turgor normal, no suspicious rashes or lesions. Head: Normocephalic, no masses, lesions, tenderness or abnormalities. Eyes: Anicteric sclera. Pupils are equally round and reactive to light. Extraocular movements are intact. . Ears: External ears, TM's normal, canals clear. Neck: Supple, no adenopathy; thyroid symmetric, normal size, no bruits. Lungs: Lungs clear to auscultation. No wheezing, rhonchi, rales.. Heart: RRR without murmur, gallop, or rubs. No ectopy. Abdomen: Normal abdominal exam, Abdomen soft, non-tender. Bowel sounds normal. No masses, organomegaly. Extremities: No deformities, edema, skin discoloration, clubbing or cyanosis. Good capillary refill. . Musculoskeletal: Spine range of motion normal. Muscular strength intact, No joint swelling, deformity, or tenderness. Peripheral Pulses: Normal. Neurologic: Gait normal. Reflexes normal and symmetric. Sensation to light touch and crainal nerves2-12 intact.. Genitalia: Normal, Penis normal. No urethral discharge. Scrotum normal to palpation. No hernia.. Rectal: Normal exam. Diabetic Foot Exam: Feet: Shoes and socks removed, no deformities, ulcers, calluses, normal distal pulses, sensitive to10 gm microfilament, and vibratory exam within normal limits Skin: warm, dry, no callouses or ulcer, and normal hair growth Vascular Pulses: Normal SEMMES-CASANDRA MONOFILAMENT TESTING Left Foot Right Foot Dorsal Surface Intact Dorsal Surface Intact Plantar Surface Intact Plantar Surface Intact Health Maintenance List HEPATITIS C SCREENING Never done SHINGRIX VACCINE(1 of 2) Never done INFLUENZA(1) due on 03/14/2022 DEPRESSION ASSESSMENT Never done HBA1C due on 08/02/2022 DIABETIC FOOT EXAM due on 07/30/2022 DILATED RETINAL EXAM due on 08/08/2022 COVID-19 VACCINE(1) due on 01/30/2023 ANNUAL PCP TEAM CHRONIC DISEASE VISIT due on 01/30/2023 BP CONTROLLED (<130/80) due on 01/30/2023 LDL CHOLESTEROL due on 02/04/2023 DTAP,TDAP,TD(2 - Td or Tdap) due on 05/19/2024 PROSTATE CANCER SCREENING DISCUSSION due on 07/30/2026 COLORECTAL CANCER SCREENING due on 01/14/2028 PNEUMOCOCCAL(3 - PPSV23 if available, else PCV20) due on 2032 HEPATITIS B Discontinued URINE ALBUMIN:CREATININE RATIO Discontinued HIV SCREENING Discontinued Data reviewed A/P ASSESSMENT/PLAN: 1. Well adult exam - ICD9: V70.0, ICD10: Z00.00 (primary diagnosis) - Counseled on healthy diet and regular exercise - Discussed need for and benefit of weight loss. BMI 32.84 kg/(m^2) - Patient was counseled [id number] by myself (the billing provider) for the following immunizations and vaccine components, including side effects: Influenza. Patient consents for immunization and understands risks and benefits. A VIS sheet on each immunization was given to the patient. - Follow up for annual exam in one year - PSA/PROSTSPECAG DIAG 2. Type 2 diabetes mellitus without retinopathy (HCC) - ICD9: 250.00, ICD10: E11.9 - will await labs. Suspect with being off all meds his A1c is now above 7.5. - Encouraged regular aerobic exercise and weight loss - Discussed diabetic education issues of halfway diabetic complications, diet, importance of exercise, and importance of annual examinations with Opthalmology with patient. - BP goal of <130/80 - LDL goal of <100 - ALBUMIN/CREAT RATIO RND UR - COMP METABOLIC PANEL - HGB A1C - URINALYSIS, WITH MICROSCOPIC - LIPID PANEL, NONFASTING - CBC + DIFF 3. 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 Type 2 diabetes mellitus with peripheral neuropathy (HCC) - ICD9: 250.60, 357.2, ICD10: E11.42 -as above - ALBUMIN/CREAT RATIO RND UR - COMP METABOLIC PANEL - HGB A1C - URINALYSIS, WITH MICROSCOPIC - LIPID PANEL, NONFASTING - CBC + DIFF 5. Diabetic eye exam (HCC) - ICD9: V72.0, 250.00, ICD10: Z01.00, E11.9 - needs updated 6. Mixed hyperlipidemia - ICD9: 272.2, ICD10: E78.2 - to be determined upon return of lab results - Encouraged following a low fat, low cholesterol diet. - Discussed the benefits of regular aerobic exercise and weight loss. - Encouraged following a low carbohydrate, healthy oil intake diet. Check - COMP METABOLIC PANEL - URINALYSIS, WITH MICROSCOPIC - LIPID PANEL, NONFASTING 7. Essential hypertension - ICD9: 401.9, ICD10: I10 - suboptimal control - patient will restart the 5 mg a day for now. - Recommended regular aerobic exercise. - Recommend home blood pressure monitoring, to bring results in on next visit - Recheck in 4 weeks, sooner should new symptoms or problems arise. - Goal of BP <130/80 - COMP METABOLIC PANEL - URINALYSIS, WITH MICROSCOPIC - LIPID PANEL, NONFASTING 8. Coronary artery disease due to lipid rich plaque - ICD9: 414.00, 414.3, ICD10: I25.10, I25.83 - clinically stable and will be seeing cardio in a few months. - discussed the risk of recurrent SC with not having control of his BP and diabetes. - LIPID PANEL, NONFASTING 9. Obesity, Class I, BMI 30-34.9 - ICD9: 278.00, ICD10: E66.9 Weight decreasing - Behavioral intervention 10. Moderate obstructive sleep apnea - ICD9: 327.23, ICD10: G47.33 - no longer wearing CPAP. Discussed that with not being treated there can be increased risk for progression of heart disease and risk for stroke. 11. Screening for prostate cancer - ICD9: V76.44, ICD10: Z12.5 check - PSA/PROSTSPECAG DIAG 12. Encounter for immunization - ICD9: V03.89, ICD10: Z23 - INFLUENZA VACCINE QUADRIVALENT 6 MO - 64 YRS IM: given Requested Prescriptions Signed Prescriptions Disp Refills rosuvastatin (CRESTOR) 40 mg tablet 90 tablet 1 Sig: Take 1 tablet by mouth daily at bedtime. BP check in 4 weeks F/u 4 months routine Oswald Quarles MD documented in this encounterW[facility] Center08-30-2022 Miscellaneous Notes* Telephone Encounter - Mary Lou Adam RN - 03/12/2022 9:06 AM EDT Faxed over to [facility] the Office Visit Notes, Demographic, Labs, and Insurance information for patient. Faxed to # [phone] with Fax Confirmation received and informed patient of Phone number for Pharmacy. documented in this encounterWexner [facility] Center08-26-2022 History of Present illness Narrative* Akira Li MD - 03/08/2022 8:42 AM EDT Images from the original note were not included. [facility] UROLOGY NEW PATIENT CLINIC NOTE PATIENT INFO: Wallace Turk (56 year old) Referred by: Oswald Quarles [id number] [facility] [id number] 03/08/2022 UROLOGY DIAGNOSES: 1. Erectile dysfunction associated with type 2 diabetes mellitus (HCC) - ICD9: 250.80, 607.84, ICD10: E11.69, N52.1 (primary diagnosis) 2. Low testosterone in male - ICD9: 790.99, ICD10: R79.89 3. At risk for injury due to transfer - ICD9: V49.89, ICD10: Z91.89 CHIEF COMPLAINT: ED HPI: 56 year old, male presents for evaluation of ED and low T No prior history Several years of worsening ED Takes Viagra 200mg Rigidity 75% Can maintain Able to orgasm and ejaculate Low energy and ED Concern for transfer injury to kids with topical Family Hx: No malignancy Component Latest Ref Rng & Units 07/30/2021 02/04/2022 Hemoglobin A1C 4.3 - 5.6 % 8.0 (H) Estimated Average Glucose mg/dL 183 PSA Screening <2.60 ng/mL 0.46 Testosterone 193 - 824 ng/dL 205 Component Latest Ref Rng & Units 01/30/2022 Hemoglobin A1C (POCT) 4.2 - 5.6 % 7.5 (A) Symptom Scores: KIM Score: 8 (Scores range from 1 to 25) A score of 20 or higher suggest a normal degree of erectile functioning. Low scores (10 or less) suggest moderate to severe ED. PMH: PAST MEDICAL HISTORY Diagnosis Date Coronary artery disease due to lipid rich plaque 05/10/2015 Sees Rachel Kilgore [employer] with cardiology in [facility]. 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 ([facility]) 05/10/2015 Type 2 diabetes mellitus without retinopathy ([facility]) 06/12/2015 Vitreous floaters of both eyes 06/12/2015 Vitreous floaters of both eyes 06/12/2015 PSH: PAST SURGICAL HISTORY Procedure Laterality Date PAST SURGICAL HISTORY OF 05/2012 3 stents PAST SURGICAL HISTORY OF Rt achillis repair SH: Social History Tobacco Use Smoking status: Never Smokeless tobacco: Current Types: Chew Tobacco comments: can of chew per day Vaping Use Vaping Use: Never used Substance Use Topics Alcohol use: Yes Comment: on occasion FH: FAMILY HISTORY Problem Relation Age of Onset Diabetes Mother Coronary Artery Disease Mother of [place] at 70 Lipids Mother Stroke Mother Diabetes Father Alzheimer's Disease Paternal Grandfather REVIEW OF SYSTEMS: Review of Systems: Constitutional: No weakness, fever/chills, unexplained weight change Psychiatric: Stable mood Skin: No rashes or lesions HEENT: No blurred vision or double vision. No severe or worsening headaches. Sense of smell intact Neck: No masses or pain Chest: No shortness of breath or cough. No history of recurrent pneumonia, bronchitis, or sinustitis. CVS: No chest pains or palpatations. No history of cardiovascular disease. GI: No nausea, vomiting or abdominal pain Neurologic: No weakness or sensory changes : see above Musculoskeletal: Stable All other systems reviewed and noncontributory Allergy: [place], Watermelon, and Lipitor [Atorvastatin Calcium] MEDICATIONS: Current Outpatient Medications Medication Sig Dispense Refill dulaglutide (TRULICITY) 4.5 mg/0.5 mL pen injector Inject 4.5 mg subcutaneously one time a week. 12Each 1 rosuvastatin (CRESTOR) 40 mg tablet Take 1 tablet by mouth daily at bedtime. 90 tablet 1 pioglitazone (ACTOS) 45 mg tablet Take 1 tablet by mouth once daily. 90 tablet 1 sildenafil (VIAGRA) 100 mg tablet Take 1 tablet by mouth as needed. 30 tablet 5 lisinopril 2.5 mg tablet Take 1 tablet by mouth once daily. 90 tablet 5 metFORMIN ER (GLUCOPHAGE XR) 500 mg 24 hr tablet Take 4 tablets by mouth daily with breakfast. 360 tablet 5 selenium 200 mcg tablet Take 1 tablet by mouth once daily. Magnesium Oxide 250 mg magnesium tab Take 250 mg by mouth once daily. aspirin, enteric coated (ASPIRIN, ENTERIC COATED) 325 mg EC tablet Take 0.5 tablets by mouth once daily. Take with food. flash glucose sensor (FREESTYLE EDUARDO 14 DAY SENSOR) kit Use to check blood sugars three times daily 2 Kit 3 Lancets lancets Test Two times a day. Insulin Dep? Yes E11.9 DM 2 200 Each 4 blood sugar diagnostic (BLOOD GLUCOSE TEST) test strip Test 2 times daily, Insulin Dep? No E11.9 DM2 200 Strip 4 multivitamin tablet Take 1 tablet by mouth once daily. gabapentin (NEURONTIN) 300 mg capsule Take 1 capsule by mouth daily at bedtime for 30 days. 30 capsule 5 albuterol HFA (PROVENTIL HFA, VENTOLIN HFA) 90 mcg/actuation inhaler INHALE 4 TO 8 PUFFS BY MOUTH EVERY 4 HOURS NEEDED FOR DYSPNEA WHEEZING (Patient not taking: No sig reported) No current facility-administered medications for this visit. PHYSICAL EXAM: Ht 177.8 cm (5' 10) Wt 105.2 kg (232 lb) BMI 33.29 kg/m Body mass index is 33.29 kg/m . General Appearance/ Constitutional: Well developed, well nourished, and in no apparent distress HEENT: Normal Neck: Lymph Nodes: Normal Cardiac: Normal Breast: Not examined Pulmonary: Ascultation: Not examined Effort: Normal GI: Soft, Non-tender, Non-distended and Costovertebral angle tenderness absent Peripheral Vascular: Not examined Extremities: Cyanosis absent, Clubbing absent and Edema absent Skin: Normal Neurologic: Normal, Grossly non-focal, Alert and oriented and Affect appropriate (MALE): Penis: Normal without external lesions Testicles: Normal Scrotum: Normal PSA (ng/mL) Date Value 05/26/2020 0.55 02/02/2019 0.64 PSA Screening (ng/mL) Date Value 07/30/2021 0.46 DIAGNOSES: 1. Erectile dysfunction associated with type 2 diabetes mellitus (HCC) - ICD9: 250.80, 607.84, ICD10: E11.69, N52.1 (primary diagnosis) 2. Low testosterone in male - ICD9: 790.99, ICD10: R79.89 3. At risk for injury due to transfer - ICD9: V49.89, ICD10: Z91.89 IMPRESSION/PLAN: On Viagra 100mg, taking 2 at times, not happy with it Low T 205 Repeat AM T labs today Would like to proceed with TRT Will start Xyosted 75mg q weekly (if not covered interested in Testopel) T in 6 weeks - Call with results RTO 4 mo Discussed TRT. Discussed this will likely render him azoospermic but this is reversible in > 95%of men. Plan to initiate this patient on testosterone therapy. Discussed the following with the patient: Portion of the AUA Position Statement on Testosterone Therapy: Updated 02/2015 In a recent drug safety communication the FDA requires manufacturers of approved testosterone products to add labeling information about possible increased risk of heart attack and stroke. The [place] [employer] (AUA) concludes that there is conflicting evidence about the impact of testosterone therapy on cardiovascular risks. Definitive studies have not been performed. The FDA drug s afety communication cautions that benefits and risks of testosterone products for low testosterone due to aging are not clearly established. Hypogonadism is defined as biochemically low testosterone levels in the setting of a cluster of symptoms, which may include reduced sexual desire (libido) andactivity, decreased spontaneous erections, decreased energy and depressed mood. Men with hypogonadism may also experience reduced muscle mass and strength and increased body fat. Hypogonadism may also contribute to reduced bone mineral density and anemia. Testosterone therapy is appropriate treatment for patients with clinically significant hypogonadism, including those with idiopathic clinical hy pogonadism that may or may not be age-related, after full discussion of potential adverse effects. Patients should understand that treatment requires follow-up and medical monitoring. Testosterone therapy in the absence of hypogonadism is inappropriate. Testosterone therapy should not be offered to men with normal testosterone levels. Testosterone therapy is never a treatment for infertility, and may cause infertility. The potential adverse effects of testosterone therapy should be discussed prior to treatment. Theseinclude acne, breast swelling or tenderness, increased red blood cell count, swelling of the feet or ankles, reduced testicular size and infertility. Current evidence does not provide any definitive answers regarding the risks of testosterone therapy on prostate cancer and cardiovascular disease, and patients should be so informed. Akira Li MD documented in this encounterWexner Medical Center08-01-2022 Miscellaneous Notes* Telephone Encounter - Tatum Glass - 02/11/2022 2:53 PM EDT Done. Thank you, Tatum Glass * Telephone Encounter - Luci Jj Ma - 02/11/2022 2:04 PM EDT Please call pt to set up urology consult. Luci Jj Ma * Telephone Encounter - sOwald Quarles MD - 02/11/2022 1:33 PM EDT consult for urology filed. * Telephone Encounter - Astrid Hope MA - 02/11/2022 8:31 AM EDT Patient notified of results. Patient is willing to see urology. Please file order. Astrid Hope MA * Telephone Encounter - Oswald Quarles MD - 02/10/2022 11:02 PM EDT Let patient know testosterone level is on the very low end of normal. Can place referral to see urology for treatment options if wishes. His lipid panel showed his trigs are elevated again at 434 (goal<150 and was 174). Really needs to cut down on fat in his diet. HDL was ok at 43. LDL not able to be calculated since Trigs were so high. [facility] History of Present illness Narrative* Oswald Quarles MD - 01/30/2022 5:20 PM EDT Chief Complaint Patient presents with: F/U 6 months HPI Wallace Turk is a 56 year old male who presents here today for 6 month follow up. Patient with hx of DM2, HTN, HLP, neuropathy, LILA, obesity CAD and those as below. Patient has not f/u with cardio in quit some time. Has been off his crestor for last 6 months. Past medical history, appointments, medications, allergies reviewed. Previous Medical History PAST MEDICAL HISTORY Diagnosis Date Coronary artery disease due to lipid rich plaque 05/10/2015 Sees Rachel Kilgore [employer]AR SYSTEMS DESIGNER with cardiology in [facility]. 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) 05/10/2015 Type 2 diabetes mellitus without retinopathy (HCC) 06/12/2015 Vitreous floaters of both eyes 06/12/2015 Vitreous floaters of both eyes 06/12/2015 Previous Surgical History PAST SURGICAL HISTORY Procedure Laterality Date PAST SURGICAL HISTORY OF 05/2012 3 stents PAST SURGICAL HISTORY OF Rt achillis repair Family History FAMILY HISTORY Problem Relation Age of Onset Diabetes Mother Coronary Artery Disease Mother of [place] at 70 Lipids Mother Stroke Mother Diabetes Father Alzheimer's Disease Paternal Grandfather Patient Allergies ALLERGIES Allergen Reactions [place] Itching Watermelon Swelling Lipitor [Atorvastat* Other: See Comments Muscle aches Current Medications Current Outpatient Medications on File Prior to Visit Medication Sig pioglitazone (ACTOS) 45 mg tablet Take 1 tablet by mouth once daily. dulaglutide (TRULICITY) 3 mg/0.5 mL pen injector Inject 3 mg subcutaneously one time a week. sildenafil (VIAGRA) 100 mg tablet Take 1 tablet by mouth as needed. lisinopril 2.5 mg tablet Take 1 tablet by mouth once daily. metFORMIN ER (GLUCOPHAGE XR) 500 mg 24 hr tablet Take 4 tablets by mouth daily with breakfast. gabapentin (NEURONTIN) 300 mg capsule Take 1 capsule by mouth daily at bedtime for 30 days. rosuvastatin (CRESTOR) 40 mg tablet Take 1 tablet by mouth daily at bedtime. albuterol HFA (PROVENTIL HFA, VENTOLIN HFA) 90 mcg/actuation inhaler INHALE 4 TO 8 PUFFS BY MOUTH EVERY 4 HOURS NEEDED FOR DYSPNEA WHEEZING (Patient not taking: Reported on 07/30/2021) selenium 200 mcg tablet Take 1 tablet by mouth once daily. Magnesium Oxide 250 mg magnesium tab Take 250 mg by mouth once daily. aspirin, enteric coated (ASPIRIN, ENTERIC COATED) 325 mg EC tablet Take 0.5 tablets by mouth once daily. Take with food. flash glucose sensor ([employer]amp [employer] EDUARDO 14 DAY SENSOR) kit Use to check blood sugars three times daily (Patient not taking: Reported on 12/14/2020 ) Lancets lancets Test Two times a day. Insulin Dep? Yes E11.9 DM 2 blood sugar diagnostic (BLOOD GLUCOSE TEST) test strip Test 2 times daily, Insulin Dep? No E11.9 DM2 multivitamin tablet Take 1 tablet by mouth once daily. No current facility-administered medications on file prior to visit. Social History Social History Tobacco Use Smoking status: Never Smoker Smokeless tobacco: Current User Types: Chew Tobacco comment: can of chew per day Vaping Use Vaping Use: Never used Substance Use Topics Alcohol use: Yes Comment: on occasion Drug use: Not on file Review of Symptoms REVIEW OF SYSTEMS GENERAL: No weight loss, malaise or fevers NECK: Negative for lumps, goiter, pain and significant neck swelling RESPIRATORY: Negative for cough, hemoptysis, wheezing, COPD, dyspnea or shortness of breath CARDIOVASCULAR: Negative for chest pain, leg swelling, hypertension, CHF or palpitations GI: No nausea, vomiting, or diarrhea and No heartburn or reflux symptoms : No history of dysuria, blood ENDOCRINE: Negative for symptoms of low BS's NEURO: No history of headaches, syncope, paralysis, seizures or tremors EXAM: BP 126/84 (BP Site: Left Arm, BP Position: Sitting, BP Cuff Size: Large Adult) Pulse 88 Resp 16 Wt 106.1 kg (234 lb) BMI 34.07 kg/m Last 4 Encounter Wt Readings: Date: Wt: 01/30/2022 106.1 kg (234 lb) 10/01/2021 109.4 kg (241 lb 3.2 oz) 07/30/2021 106.6 kg (235 lb) 12/14/2020 107.5 kg (237 lb) General Appearance: Well appearing, alert, in no acute distress, well-hydrated, well nourished.. Eyes: Anicteric sclera. Pupils are equally round and reactive to light. Extraocular movements are intact. . Neck: Supple, no adenopathy; thyroid symmetric, normal size, no bruits. Lungs: Lungs clear to auscultation. No wheezing, rhonchi, rales.. Heart: RRR without murmur, gallop, or rubs. No ectopy. Abdomen: Normal abdominal exam, Abdomen soft, non-tender. Bowel sounds normal. No masses, organomegaly. Extremities: No deformities, edema, skin discoloration. Musculoskeletal: Spine range of motion normal. Muscular strength intact, No joint swelling, deformity, or tenderness. Peripheral Pulses: Normal. Neurologic: Gait normal. Reflexes normal and symmetric. Sensation to light touch and crainal nerves2-12 intact.. Health Maintenance List COVID-19 VACCINE(1) Never done HEPATITIS B(1 of 3 - Risk 3-dose series) Never done SHINGRIX VACCINE(1 of 2) Never done DEPRESSION SCREENING due on 09/22/2019 BP CONTROLLED (<130/80) due on 07/27/2020 HBA1C due on 10/28/2021 HEPATITIS C SCREENING due on 07/30/2022 INFLUENZA(1) due on 03/14/2022 LDL CHOLESTEROL due on 07/30/2022 DIABETIC FOOT EXAM due on 07/30/2022 ANNUAL PCP TEAM CHRONIC DISEASE VISIT due on 07/30/2022 DILATED RETINAL EXAM due on 08/08/2022 DTAP,TDAP,TD(2 - Td or Tdap) due on 05/19/2024 COLORECTAL CANCER SCREENING due on 01/14/2028 PNEUMOCOCCAL(3 - PPSV23 or PCV20) due on 2032 URINE ALBUMIN:CREATININE RATIO Discontinued HIV SCREENING Discontinued Data reviewed Component Latest Ref Rng & Units 07/30/2021 Protein, Total 6.3 - 8.0 g/dL 6.8 Albumin 3.9 - 4.9 g/dL 4.5 Calcium 8.5 - 10.2 mg/dL 9.3 Bilirubin, Total 0.2 - 1.3 mg/dL 0.4 Alkaline Phosphatase 38 - 113 U/L 93 AST 14 - 40 U/L 14 Glucose 74 - 99 mg/dL 186 (H) BUN 9 - 24 mg/dL 16 Creatinine 0.73 - 1.22 mg/dL 0.75 Sodium 136 - 144 mmol/L 138 Potassium 3.7 - 5.1 mmol/L 4.2 Chloride 97 - 105 mmol/L 102 CO2 22 - 30 mmol/L 24 Anion Gap 9 - 18 mmol/L 12 ALT 10 - 54 U/L 18 eGFR- >60 eGFR-All Other Races . >60 Total Cholesterol, Nonfasting <200 mg/dL 146 Triglycerides, Nonfasting <150 mg/dL 174 (H) HDL Cholesterol, Nonfasting >39 mg/dL 50 LDL Cholesterol, Nonfasting <100 mg/dL 61 Non HDL Cholesterol, Nonfasting <130 mg/dL 96 VLDL Cholesterol, Nonfasting <30 mg/dL 35 (H) Total Chol/HDL Ratio, Nonfasting <5.10 mg/dL 2.92 LDL/HDL Ratio, Nonfasting <2.54 mg/dL 1.22 Hemoglobin A1C 4.3 - 5.6 % 8.0 (H) Estimated Average Glucose mg/dL 183 PSA Screening <2.60 ng/mL 0.46 A/P ASSESSMENT/PLAN: 1. Controlled type 2 diabetes mellitus without complication, with long-term current use of insulin (HCC) - ICD9: 250.00, V58.67, ICD10: E11.9, Z79.4 (primary diagnosis) uncontrolled improved control - Continue current medications - Increase Trulicity to 4.5 mg a week - Encouraged regular aerobic exercise and weight loss. Patient to work on improved diet which he has never done well at. - BP goal of <130/80 - LDL goal of <100 - HB A1C B/O Check - LIPID PANEL, NONFASTING - TESTOSTERONE TOTAL 2. Type 2 diabetes mellitus without retinopathy (HCC) - ICD9: 250.00, ICD10: E11.9 - as per #1 - LIPID PANEL, NONFASTING - TESTOSTERONE TOTAL 3. 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 Type 2 diabetes mellitus with peripheral neuropathy (HCC) - ICD9: 250.60, 357.2, ICD10: E11.42 - As per #1 - LIPID PANEL, NONFASTING 5. Diabetic eye exam (HCC) - ICD9: V72.0, 250.00, ICD10: Z01.00, E11.9 - Up to date 6. Mixed hyperlipidemia - ICD9: 272.2, ICD10: E78.2 - to be determined upon return of lab results - Encouraged following a low fat, low cholesterol diet. - Discussed the benefits of regular aerobic exercise and weight loss. - Encouraged following a low carbohydrate, healthy oil intake diet. Restart crestor Check - LIPID PANEL, NONFASTING 7. Essential hypertension - ICD9: 401.9, ICD10: I10 - good control - Continue current medication(s) - Recommended regular aerobic exercise. - Recommend home blood pressure monitoring, to bring results in on next visit - Goal of BP <130/80 - LIPID PANEL, NONFASTING 8. Coronary artery disease due to lipid rich plaque - ICD9: 414.00, 414.3, ICD10: I25.10, I25.83 - Consult cardio. - LIPID PANEL, NONFASTING 9. Obesity, Class I, BMI 30-34.9 - ICD9: 278.00, ICD10: E66.9 Weight decreasing - Behavioral intervention 10. Erectile dysfunction, unspecified erectile dysfunction type - ICD9: 607.84, ICD10: N52.9 Check - TESTOSTERONE TOTAL Signed Prescriptions Disp Refills dulaglutide (TRULICITY) 4.5 mg/0.5 mL pen injector 12 Each 1 Sig: Inject 4.5 mg subcutaneously one time a week. rosuvastatin (CRESTOR) 40 mg tablet 90 tablet 1 Sig: Take 1 tablet by mouth daily at bedtime. NETTIE: No F/u 6 months complete PE Oswald Quarles MD documented [facility] Instructions* Patient Instructions* Sam White - 10/01/2021 1:27 PM EDT Use benadryl OTC as needed for itching. Zyrtec, Claritin, or other non-drowsy antihistamine daily. Poison Eri and Poison [place] Rashes caused by poison eri and poison oak occur because of an allergy to those or similar plants. Although no one gets a rash after the first exposure to poison eri or poison oak, most people eventually develop an allergy to these plants if they are exposed often enough. You may be unaware of where and. when you were exposed to poison eri or poison oak. You may not have recognized the plant, or the plant oils may have been transferred to you from the fur of a dog, or from the bottom of shoes. The rash breaks out 1 to 4 days after exposure. The first rash is itchy red bumps, which then turn into small water blisters. Although scratching the rash makes it worse simply because of irritation,blister fluid that touches other skin will not cause the rash to spread there. However, until you take a warm soapy bath or shower, any remaining oil can spread from one area to another and cause newblisters. The treatment of poison eri and poison oak requires attention to several different factors. First, you should try to discover where and how you were exposed to the plant, so that you can avoid it in .the future. Second, if you have not had a warm soapy shower, do it. Third, be sure your clothes have been washed and that shoes that have been touched by poison eri or oak are cleaned, top and bottom, and not lying on clothes. Your doctor has probably given you cortisone, in either a cream or ointment form, if your rash is mild, or by pill or injection if your rash is more severe. Use your cortisone as directed, since discontinuing it too soon allows the rash to worsen. If your rash is very severe, you may be given cortisone to take orally (prednisone) or an injection to improve the skin initially, and an ointment or cream as a safe way to prevent worsening of the rash after initial improvement. Use the cream or ointment until your skin feels normal to the touch. The cortisone should be used regularly but sparinglytwice daily and covered with a heavy, healing cream moisturizer to help seal irritating, tiny cracks in the skin. Common creams are Eucerin cream (not lotion), Aquaphor, or Vaseline petroleum jelly. When your skin has improved, you can switch to a cosmetically nicer, thinner lotion. [facility] in this [facility]22 History of Present illness Narrative* Debra Yun APRN.MAIL PROCESSING EQUIPMENT MECHANIC - 10/01/2021 1:21 PM EDT Images from the original note were not included. This note was created using [employer]. Subjective Wallace Turk is a 56 year old male who presents with contact dermatitis of the face and genitalia x 5 days after probable exposure to poison eri via his dog. Rash appeared two days after his dog had been running through the mak. Review of Systems Constitutional: Negative for diaphoresis, fatigue and fever. HENT: Negative for facial swelling, sneezing, sore throat, trouble swallowing and voice change. Eyes: Negative for discharge and itching. Respiratory: Negative for cough, choking, chest tightness, shortness of breath, wheezing and stridor. Cardiovascular: Negative for chest pain and palpitations. Gastrointestinal: Negative for constipation, diarrhea, nausea and vomiting. Genitourinary: Negative for penile discharge, penile pain, penile swelling, scrotal swelling and testicular pain. Genital itching and rash Musculoskeletal: Negative for arthralgias and myalgias. Skin: Positive for rash. Allergic/Immunologic: Positive for environmental allergies. Neurological: Negative for syncope, light-headedness and headaches. Hematological: Negative for adenopathy. Psychiatric/Behavioral: Negative for confusion. Objective BP 138/88 Pulse 101 Temp 36.9 C (98.5 F) Resp 21 Wt 109.4 kg (241 lb 3.2 oz) SpO2 99% BMI 35.12 kg/m PAST MEDICAL HISTORY Diagnosis Date Coronary artery disease due to lipid rich plaque 05/10/2015 Sees Rachel Kilgore [employer] DESIGNER with cardiology in [facility]. 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 dulaglutide (TRULICITY) 3 mg/0.5 mL pen injector Inject 3 mg subcutaneously one time a week. sildenafil (VIAGRA) 100 mg tablet Take 1 tablet by mouth as needed. lisinopril 2.5 mg tablet Take 1 tablet by mouth once daily. metFORMIN ER (GLUCOPHAGE XR) 500 mg 24 hr tablet Take 4 tablets by mouth daily with breakfast. rosuvastatin (CRESTOR) 40 mg tablet Take 1 tablet by mouth daily at bedtime. selenium 200 mcg tablet Take 1 tablet by mouth once daily. Magnesium Oxide 250 mg magnesium tab Take 250 mg by mouth once daily. aspirin, enteric coated (ASPIRIN, ENTERIC COATED) 325 mg EC tablet Take 0.5 tablets by mouth once daily. Take with food. Lancets lancets Test Two times a day. Insulin Dep? Yes E11.9 DM 2 blood sugar diagnostic (BLOOD GLUCOSE TEST) test strip Test 2 times daily, Insulin Dep? No E11.9 DM2 multivitamin tablet Take 1 tablet by mouth once daily. predniSONE (DELTASONE) 10 mg tablet Take 6 tabs for 3 days, then 4 tabs for 3 days, then 2 tabs for3 days then 1 tab for 3 days with food. gabapentin (NEURONTIN) 300 mg capsule Take 1 capsule by mouth daily at bedtime for 30 days. albuterol HFA (PROVENTIL HFA, VENTOLIN HFA) 90 mcg/actuation inhaler INHALE 4 TO 8 PUFFS BY MOUTH EVERY 4 HOURS NEEDED FOR DYSPNEA WHEEZING flash glucose sensor ([employer]YLE EDUARDO 14 DAY SENSOR) kit Use to check blood sugars three times daily FAMILY HISTORY Problem Relation Age of Onset Diabetes Mother Coronary Artery Disease Mother of [place] at 70 Lipids Mother Stroke Mother Diabetes Father Alzheimer's Disease Paternal Grandfather Social History Tobacco Use Smoking status: Never Smoker Smokeless tobacco: Current User Types: Chew Tobacco comment: can of chew per day Vaping Use Vaping Use: Never used Substance Use Topics Alcohol use: Yes Comment: on occasion Drug use: Not on file Physical Exam Vitals reviewed. Constitutional: General: He is not in acute distress. Appearance: Normal appearance. HENT: Head: Normocephalic and atraumatic. Comments: Hives on face Right Ear: External ear normal. Left Ear: External ear normal. Mouth/Throat: Mouth: Mucous membranes are moist. Pharynx: Posterior oropharyngeal erythema present. No oropharyngeal exudate. Eyes: General: No scleral icterus. Extraocular Movements: Extraocular movements intact. Pupils: Pupils are equal, round, and reactive to light. Cardiovascular: Rate and Rhythm: Regular rhythm. Tachycardia present. Heart sounds: Normal heart sounds. Pulmonary: Effort: Pulmonary effort is normal. No respiratory distress. Breath sounds: Normal breath sounds. No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 Procedures OFFICE/OUTPATIENT ESTABLISHED MOD MDM 30-39 MIN 4C EST Liliana Rios PA-C [address] [place] [address] Oswald Quarles MD [address] [place] [address] Referral ID Status Reason Start Date Expiration Date Visits Re quested Visits Authorized [id number] Closed 07/14/2021 07/13/2022 1 1 Reason Comments Results Reason Comments Consult Erectile Dysfunction Specialty Diagnoses / Procedures Referred By Contac t Referred To Contact Urology / FAMILY MEDICINE Diagnoses Erectile dysfunction, unspecified erectile dysfunction type Low testosterone in male Procedures CONSULT TO UROLOGY OFFICE/OUTPATIENT NEW HIGH MDM 60-74 MINUTES Oswald Quarles MD [address] [place] [address] [facility] [address] [place] [address] Referral ID Status Reason Start Date Expiration Date V isits Requested Visits Authorized [id number] Closed PCP Requested Referral 03/08/2022 07/13/2022 2 2 Reason Comments [facility] Fax Reason Comments Physical Reason Comments Follow Up 1 month FU BP Specialty Diagnoses / Procedures Referred By Contac t Referred To Contact Family Medicine / FAMILY MEDICINE Diagnoses Follow-up exam 1 month follow up Procedures OFFICE/OUTPATIENT ESTABLISHED MOD MDM 30-39 MIN 4C EST Oswald Quarles MD [address] [place] [address] Liliana Rios PA-C [address] [place] [address] Referral ID Status Reason Start Date Expiration Date Visits Re quested Visits Authorized [id number] Closed 09/12/2022 07/13/2023 1 1 Reason Comments Results Reason Comments Radiology NM Specialty Diagnoses / Procedures Referred By Contac t Referred To Contact MOLECULAR & FUNCTIONAL IMAGING Diagnoses Coronary artery disease involving [place] coronary artery of [place] heart without angina pectoris Encounter for screening for cardiovascular disorders Procedures NM CARDIAC PERF STRESS/EXERCISE MYOCARDIAL SPECT MULTIPLE STUDIES Veronica Cheng, MEDICAL I D SALES.MAIL PROCESSING EQUIPMENT MECHANIC [address] [place], [place] [id number] Molecular & Functional Imaging [address] [place] [address] Referral ID Status Reason Start Date Expiration Date V isits Requested Visits Authorized [id number] Closed Auto-Generate d Referral 12/16/2022 07/13/2023 1 1 Specialty Diagnoses / Procedures Referred By Contac t Referred To Contact MOLECULAR & FUNCTIONAL IMAGING Diagnoses Coronary artery disease involving [place] coronary artery of [place] heart without angina pectoris Encounter for screening for cardiovascular disorders Procedures NM CARDIAC PERF STRESS/EXERCISE MYOCARDIAL SPECT MULTIPLE STUDIES Veronica Cheng, MEDICAL I D SALES.MAIL PROCESSING EQUIPMENT MECHANIC [address] [place] [address] Molecular & Functional Imaging [address] [place] [address] Reason Comments ED Follow-up 05/31/23 from [facility] kavita [place] Reason Comments ER F/U Reason Comments type 2 diabetes Specialty Diagnoses / Procedures Referred By Contac t Referred To Contact Endocrinology Diagnoses Type 2 diabetes mellitus with peripheral neuropathy (HCC) 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) Type 2 diabetes mellitus without retinopathy (HCC) Procedures CONSULT TO ENDOCRINOLOGY OFFICE/OUTPATIENT [facility] 60-74 MINUTES Oswald Quarles MD [address] [place] [address] Referral ID Status Reason Start Date Expiration Date V isits Requested Visits Authorized [id number] Closed PCP Requested Referral 06/14/2023 2024 1 1 Reason Comments New Patient Reason Onset Date Comments Surgery Scheduling 02/16/2025 Reason Comments New Patient Diabetes Mellitus Specialty Diagnoses / Procedures Referred By Contac t Referred To Contact Endocrinology Diagnoses Hemoglobin A1c 8.0% or greater Procedures HI OFFICE/OUTPATIENT [facility] [address] MD [address] [place] [address] [address] [place] [address] Phone: tel: fax: [facility] Endocrinology - [address] [place] [address] Phone: tel: fax: Referral ID Status Reason Start Date Expiration Date V isits Requested Visits Authorized [id number] Closed Specialty Services Required 02/09/2025 02/09/2026 1 1 Reason Onset Date Comments Medication Problem 02/25/2025 Prior Authorization 02/25/2025 Reason Onset Date Comments Medication Problem 02/25/2025 Prior Authorization 02/25/2025 Diabetes 02/25/2025 Reason Onset Date Comments Other 02/22/2025 Reason Comments Post-op Care Teams (unrecognized sec tion and content) Clinical Biochemist Relationship Specialty Start Date End Date Oswald Quarles MD [address] [place], [place] [id number] PCP - General Family Practice 02/25/14 S[facility] [address] [place], [place] [id number] Pharmacist Pharmacy 04/15/19 Clinical Biochemist Relationship Specialty Start Date End Date Oswald Quarles MD [address] [place] [address] PCP - General Family Practice 02/25/14 Sage [facility]Lonard, [facility] [address] [place] [address] Pharmacist Pharmacy 04/15/19 Clinical Biochemist Relationship Specialty Start Date End Date Oswald Quarles MD [address] [place] [address] PCP - General Family Practice 02/25/14 Sage Leonard, [facility] [address] [facility] [place] [address] Pharmacist Pharmacy 04/15/19 Clinical Biochemist Relationship Specialty Start Date End Date Oswald Quarles MD [address] [facility] [place] [place] [address] PCP - General Family Practice 02/25/14 Sage Leonard, [facility] [address] [place] [address] Pharmacist Pharmacy 04/15/19 Clinical Biochemist Relationship Specialty Start Date End Date Oswald Quarles MD [address] [facility] [place] [address] PCP - General Family Practice 02/25/14 Sage Leonard, [facility] [address] [place] [address] Pharmacist Pharmacy 04/15/19 Clinical Biochemist Relationship Specialty Start Date End Date Oswald Quarles MD [address] [facility] [place] [address] PCP - General Family Medicine 02/25/14 Sage Leonard, [facility] [address] [place] [address] Pharmacist Pharmacy 04/15/19 Clinical Biochemist Relationship Specialty Start Date End Date Oswald Quarles MD [address] [place] [address] PCP - General Family Medicine 02/25/14 Sage Leonard, [facility] [address] [facility] [place] [place] [address] Pharmacist Pharmacy 04/15/19 Clinical Biochemist Relationship Specialty Start Date End Date Oswald Quarles MD [address] [place] [address] PCP - General Family Medicine 02/25/14 Sage Leonard, [facility] [address] [facility] [place] [place] [address] Pharmacist Pharmacy 04/15/19 Clinical Biochemist Relationship Specialty Start Date End Date Oswald Quarles MD [address] [place] [address] PCP - General Family Medicine 02/25/14 Sage Leonard, [facility] [address] [place] [address] Pharmacist Pharmacy 04/15/19 Clinical Biochemist Relationship Specialty Start Date End Date Oswald Quarles MD [address] [place] [address] PCP - General Family Medicine 02/25/14 Sage Leonard, [facility] [address] [facility] [place] [address] Pharmacist Pharmacy 04/15/19 Clinical Biochemist Relationship Specialty Start Date End Date Oswald Quarles MD [address] [place] [address] PCP - General Family Medicine 02/25/14 Sage Leonard, [facility] [address] [place] [address] Pharmacist Pharmacy 04/15/19 Clinical Biochemist Relationship Specialty Start Date End Date Oswald Quarles MD [address] [facility] [place] [place] [address] PCP - General Family Medicine 02/25/14 Sage Leonard, [facility] [address] [place] [address] Pharmacist Pharmacy 04/15/19 Clinical Biochemist Relationship Specialty Start Date End Date Oswald Quarles MD [address] [place] [address] PCP - General Family Medicine 02/25/14 Sage Leonard, [facility] [address] [facility] [place] [address] Pharmacist Pharmacy 04/15/19 Clinical Biochemist Relationship Specialty Start Date End Date Oswald Quarles MD [address] [facility] [place] [place] [address] PCP - General Family Medicine 02/25/14 Sage Leonard, [facility] [address] [place] [address] Pharmacist Pharmacy 04/15/19 Clinical Biochemist Relationship Specialty Start Date End Date Oswald Quarles MD [address] [facility] [place] [place] [address] PCP - General Family Medicine 02/25/14 Sage Leonard, [facility] [address] [place] [address] Pharmacist Pharmacy 04/15/19 Clinical Biochemist Relationship Specialty Start Date End Date Oswald Quarles MD [address] [place] [address] PCP - General Family Medicine 02/25/14 AndrewnavyaSage, [facility] [address] [place] [address] Pharmacist Pharmacy 04/15/19 Clinical Biochemist Relationship Specialty Start Date End Date Oswald Quarles MD [address] [place] [address] PCP - General Family Medicine 02/25/14 Clinical Biochemist Relationship Specialty Start Date End Date Oswald Quarles MD [address] [place] [address] PCP - General Family Medicine 02/25/14 Clinical Biochemist Relationship Specialty Start Date End Date Oswald Quarles MD [address] [place] [address] PCP - General Family Medicine 02/25/14 Clinical Biochemist Relationship Specialty Start Date End Date Oswald Quarles MD [address] [place], [place] [id number] PCP - General Family Medicine 02/25/14 Team Status: Active Member Role/Relationship Status Dates Dr. Oswald Quarles MD Family Provider Active Dr. Oswald Quarles MD Primary Care Provider Active Team Status: Inactive Member Role/Relationship Status Dates Dr. Oswald Quarles MD Primary Care Provider Active Start: January 19, 2025 End: January 19, 2025 Dr. Oswald Quarles MD Referring Provider Active Start: January 19, 2025 End: January 19, 2025 Dr. Az Enrique MD Attending Provider Active S tart: January 19, 2025 End: January 19, 2025 Team Status: Active Member Role/Relationship Status Dates Dr. Oswald Quarles MD Primary Care Provider Active Team Status: Inactive Member Role/Relationship Status Dates Dr. Oswald Quarles MD Primary Care Provider Active Start: January 19, 2025 End: January 19, 2025 Dr. Az Enrique MD Attending Provider Active S tart: January 19, 2025 End: January 19, 2025 Dr. Az Enrique MD Referring Provider Active S tart: January 19, 2025 End: January 19, 2025 Team Status: Active Member Role/Relationship Status Dates No Primary Care Physician Primary Care Provider Active Team Status: Inactive Member Role/Relationship Status Dates Dr. Az Enrique MD Attending Provider Active S tart: February 07, 2025 End: February 07, 2025 Dr. Az Enrique MD Referring Provider Active S tart: February 07, 2025 End: February 07, 2025 No Primary Care Physician Primary Care Provider Active Start: February 07, 2025 End: February 07, 2025 Team Status: Inactive Member Role/Relationship Status Dates Dr. Az Enrique MD Attending Provider Active S tart: February 10, 2025 End: February 10, 2025 Dr. Az Enrique MD Referring Provider Active S tart: February 10, 2025 End: February 10, 2025 No Primary Care Physician Primary Care Provider Active Start: February 10, 2025 End: February 10, 2025 Team Status: Active Member Role/Relationship Status Dates No Primary Care Physician Primary Care Provider Active Start: February 10, 2025 Dr. Az Enrique MD Attending Provider Active S tart: February 10, 2025 Clinical Biochemist Relationship Specialty Start Date End Date Jewel Lane MD [address] [facility] [place], [place] [id number] Cardiothoracic Surgery 02/24/25 Clinical Biochemist Relationship Specialty Start Date End Date Jewel Lane MD [address] [place], [place] [id number] Cardiothoracic Surgery 02/24/25 Clinical Biochemist Relationship Specialty Start Date End Date Jewel Lane MD [address] [place], [place] [id number] Cardiothoracic Surgery 02/24/25 Clinical Biochemist Relationship Specialty Start Date End Date Jewel Lane MD [address] [place], [place] [id number] Cardiothoracic Surgery 02/24/25 Clinical Biochemist Relationship Specialty Start Date End Date Jewel Lane MD [address] [place], [place] [id number] Cardiothoracic Surgery 02/24/25 Clinical Biochemist Relationship Specialty Start Date End Date Jewel Lane MD [address] [place], [place] [id number] Cardiothoracic Surgery 02/24/25 Clinical Biochemist Relationship Specialty Start Date End Date Jewel Lane MD [address] [place], [place] [phone] Cardiothoracic Surgery 02/24/25 Team Status: Active Member Role/Relationship Status Dates No Primary Care Physician Primary Care Provider Active Start: February 21, 2025 ARIANA HOLLOWAY MD Attending Provider Active Sta rt: February 21, 2025 ARIANA HOLLOWAY MD Referring Provider Active Sta rt: February 21, 2025 Team Status: Inactive Member Role/Relationship Status Dates No Primary Care Physician Primary Care Provider Active Start: February 25, 2025 End: February 25, 2025 ARIANA HOLLOWAY Attending Provider Active Start: February 25, 2025 End: February 25, 2025 ARIANA HOLLOWAY Referring Provider Active Start: February 25, 2025 End: February 25, 2025 Clinical Biochemist Relationship Specialty Start Date End Date Jewel Lane MD [address] [place], [place] [phone] Cardiothoracic Surgery 02/24/25 Clinical Biochemist Relationship Specialty Start Date End Date Jewel Lane MD [address] [place], [place] [id number] Cardiothoracic Surgery 02/24/25 Clinical Biochemist Relationship Specialty Start Date End Date Jewel Lane MD 1 [facility] [place] [address] Cardiothoracic Surgery 02/24/25 Clinical Biochemist Relationship Specialty Start Date End Date [facility] [place] [address] Cardiothoracic Surgery 02/24/25 Team Status: Active Member Role/Relationship Status Dates Dr. Kirby Caldwell MD Attending Provider Active Start: February 25, 2025 Dr. Kirby Caldwell MD Referring Provider Active Start: February 25, 2025 Team Status: Active Member Role/Relationship Status Dates No Primary Care Physician Primary Care Provider Active Start: March 17, 2025 Dr. Veronique Seymour MD Emergency Provider Active S tart: March 17, 2025 Dr. Karen Galloway MD Admit Provider Active Start: March 17, 2025 Dr. Karen Galloway MD Attending Provider Activ e Start: March 17, 2025 Dr. Karen Galloway MD Referring Provider Activ e Start: March 17, 2025 Dr. Karen Galloway MD Other Provider Active Start: March 17, 2025 (unrecognized sect ion and content) No Status Records FoundNo Status Records FoundNo Status Records FoundNo Status Records FoundNo Status Records FoundNo Status Records Found INFORMATION SOURCE (unrecogn ized section and content) DATE CREATED AUTHOR 03/10/2022 [facility] DATE CREATED AUTHOR AUTHOR'S ORGANIZ ATION 06/02/2023 [facility] DATE CREATED AUTHOR AUTHOR'S ORGANIZ ATION 06/21/2023 [facility] DATE CREATED AUTHOR AUTHOR'S ORGANIZ ATION 10/16/2023 [facility] DATE CREATED AUTHOR AUTHOR'S ORGANIZ ATION 03/05/2025 [facility] DATE CREATED AUTHOR AUTHOR'S ORGANIZ ATION 03/16/2025 [facility] Goals (unrecognized section and content) Goals may be documented in a n alternate sectionGoals may be documented in an alternate sectionGoals may be documented in an alternate sectionGoals may be documented in an alternate sectionGoals may be documented in an alternate sectionGoals may be documented in an alternate section Scheduled Active and Recently Administ ered Medications (unrecognized section and content) Medication Order 02/26/2025 02/27/2025 02/28/2025 chlorhexidine (Peridex) 0.12 % solution 15 mL (COMPLETED) 15 mL, Mouth/Throat, Once, On Fri02/28/25 at 0545, For 1 dose, Preprocedure, Rinse and spit. Do not swallow. 0605 (Given - Provid er: Jasmin Gomez RN) mupirocin (Bactroban) 2 % ointment (COMPLETED) Nasal, Once, On Fri02/28/25 at 0545, For 1 dose, Preprocedure, Apply liberal amount per nostril the morning of surgery using a q-tip. Do not totally occlude either nostril. 0605 (Given - Provid er: Jasmin Gomez RN) sodium chloride 0.9% (NS) flush 5-40 mL 5-40 mL, IntraVENous, Every 12 hours, First dose on Fri02/28/25 at 0545, Preprocedure, For Line Patency: Peripheral IV = 5 mL; Midline or Central Line = 10 mL/lumen. If following IV push medication, administer flush at same rate as the IV push. Flush volume is determined by type of infusion therapy being given. For non-viscous solutions use: Peripheral IV = 5 mL Midline or Central Line = 10 mL/lumen For viscous solutions (i.e. blood components, parenteral nutrition, contrast media, or after obtaining blood sample) use: Peripheral IV = 10 mL Midline or Central Line = 20 mL/lumen 0545 (Canceled Entry - Provider: Automatic Discharge Provider - Comment: Automatically canceled at discontinue of medication order) sodium chloride 0.9% (NS) flush 5-40 mL 5-40 mL, IntraVENous, Every 12 hours scheduled (2 times per day), First dose on Fri02/28/25 at 0900, Preprocedure, For Line Patency: Peripheral IV = 5 mL; Midline or Central Line = 10 mL/lumen. If following IV push medication, administer flush at same rate as the IV push. Flush volume is determined by type of infusion therapy being given. For non-viscous solutions use: Peripheral IV = 5 mL Midline or Central Line = 10 mL/lumen For viscous solutions (i.e. blood components, parenteral nutrition, contrast media, or after obtaining blood sample) use: Peripheral IV = 10 mL Midline or Central Line = 20 mL/lumen 0900 (Canceled Entry - Provider: Automatic Discharge Provider - Comment: Automatically canceled at discontinue of medication order) Continuous Medication Order 02/26/2025 02/27/2025 02/28/2025 sodium chloride 0.9 % infusion 50 mL/hr, IntraVENous, Continuous, Starting on Fri02/28/25 at 0545, Preprocedure, Upon admission to sameday - please start iv if patient does not have iv access. 0545 (Canceled Entry - Provider: Automatic Discharge Provider - Comment: Automatically canceled at discontinue of medication order) PRN Medication Order 02/26/2025 02/27/2025 02/28/2025 ALPRAZolam (Xanax) disintegrating tablet 0.25 mg (COMPLETED) 0.25 mg, Oral, Once PRN, anxiety, Starting on Fri02/28/25 at 0532, For 1 dose, Preprocedure, Please do not administer prior to obtaining consent and/or history and physical. 0604 (Given - Provid er: Jasmin Gomez RN) sodium chloride 0.9 % infusion 5-250 mL/hr, IntraVENous, PRN, if patient receiving piggyback infusions and maintenance fluids are not ordered OR KVO fluids to protect IV site / prevent frequent line interruptions / long duration, Starting on Fri02/28/25 at 0532, Preprocedure, For piggyback infusion, administer at same rate as piggyback for a total of 25 mL. Enter 25 mL into dose field and piggyback rate into rate field of order. If piggyback is infusing at a rate less than 100 mL/hr, enter 25 mL into dose field and 100 mL/hr into rate field of order. For KVO fluids, enter rate of 20 mL/hr or less into rate field of order. sodium chloride 0.9 % infusion 5-250 mL/hr, IntraVENous, PRN, if patient receiving piggyback infusions and maintenance fluids are not ordered OR KVO fluids to protect IV site / prevent frequent line interruptions/ long duration, Starting on Fri02/28/25 at 0532, Preprocedure, For piggyback infusion, administer at same rate as piggyback for a total of 25 mL. Enter 25 mL into dose field and piggyback rate into rate field of order. If piggyback is infusing at a rate less than 100 mL/hr, enter 25 mL into dose field and 100 mL/hr into rate field of order. For KVO fluids, enter rate of 20 mL/hr or less into rate field of order. sodium chloride 0.9% (NS) flush 5-40 mL 5-40 mL, IntraVENous, PRN, line care, After every IV line use, Starting on Fri02/28/25 at 0532, Preprocedure, For Line Patency: Peripheral IV = 5 mL; Midline or Central Line = 10 mL/lumen. If following IV push medication, administer flush at same rate as the IV push. Flush volume is determined by type of infusion therapy being given. For non-viscous solutions use: Peripheral IV = 5 mL Midline or Central Line = 10 mL/lumen For viscous solutions (i.e. blood components, parenteral nutrition, contrast media, or after obtaining blood sample) use: Peripheral IV = 10 mL Midline or Central Line = 20 mL/lumen sodium chloride 0.9% (NS) flush 5-40 mL 5-40 mL, IntraVENous, PRN, line care, Starting on Fri02/28/25 at 0532, Preprocedure, For Line Patency: Peripheral IV = 5 mL; Midline or Central Line = 10 mL/lumen. If following IV push medication, administer flush at same rate as the IV push. Flush volume is determined by type of infusion therapy being given. For non-viscous solutions use: Peripheral IV = 5 mL Midline or Central Line = 10 mL/lumen For viscous solutions (i.e. blood components, parenteral nutrition, contrast media, or after obtaining blood sample) use: Peripheral IV = 10 mL Midline or Central Line = 20 mL/lumen Scheduled Medication Order 03/06/2025 03/07/2025 03/08/2025 acetaminophen (Tylenol) tablet 1,000 mg 1,000 mg, Oral, Every 8 hours, First dose on Fri03/04/25 at 1230, Recovery & On Unit 0505 (Given - Provider: Tatum Ruggiero RN)1227 (Given - Provider: Delicia Perla RN)2051 (Given - Provider: Tatum Ruggiero RN) 0615 (Given - Provider: Rachael Zavala RN)1317 (Given - Provider: Eren Ge, PEDRO)2145 (Given - Provider: Con Rey RN) 0513 (Given - Provider: Elinor Zamora, PEDRO)1311 (Given - Provider: Delicia Abdul, PEDRO) aspirin chewable tablet 81 mg 81 mg, Oral, Daily, First dose on Fri03/05/25 at 0900 0935 (Given - Provider: Delicia Perla RN) 0808 (Given - Provider: Eren Ge RN) 0817 (Given - Provider: Aditya Hernandez RN) atorvastatin (Lipitor) tablet 80 mg 80 mg, Oral, Daily, First dose on Fri03/05/25 at 0900 0935 (Given - Provider: Delicia Perla RN) 0808 (Given - Provider: Eren Ge, PEDRO) 0817 (Given - Provider: Aditya Hernandez RN) ceFAZolin (Ancef) 2,000 mg in sodium chloride 0.9 % 100 mL IVPB (COMPLETED) 2,000 mg, IntraVENous, at 200 mL/hr, Administer over 30 Minutes, Every 8 hours, First dose on Fri03/04/25 at 1900, For 5 doses, Recovery & On Unit, Mini-Bag Plus bag, Suspected Indication (Select all that apply): Surgical Prophylaxis 0257 (New Bag - Provider: Tatum Ruggiero RN)0329 (Stopped - Provider: Tatum Ruggiero RN) chlorhexidine (Hibiclens) 4 % solution Topical, Daily, First dose on Fri03/05/25 at 1400, Recovery & On Unit 2102 (Given - Provider: Tatum Ruggiero RN) 0515 (Given - Provider: Elinor Zamora RN) chlorhexidine (Peridex) 0.12 % solution 15 mL (CANCELED) 15 mL, Mouth/Throat, 2 times daily, First dose on Fri03/04/25 at 1230, For 7 days, Recovery & On Unit, Rinse and spit. Do not swallow. 0935 (Given - Provider: Dleicia Perla RN)2050 (Given - Provider: Tatum Ruggiero RN) 08 (Given - Provider: Eren Ge RN)2011 (Given - Provider: Elinor Zamora RN) enoxaparin (Lovenox) syringe 40 mg 40 mg, SubCUTAneous, Every 24 hours, First dose on Fri03/06/25 at 0900, Indication of Use: Prophylaxis-DVT/PE 0937 (Given - Provider: Delicia Perla RN) 0808 (Given - Provider: Eren Ge RN) 0817 (Given - Provider: Aditya Hernandez RN) furosemide (Lasix) injection 40 mg (CANCELED) 40 mg, IntraVENous, Daily, First dose on Fri03/06/25 at 0930 0937 (Given - Provider: Delicia Perla RN) 08 (Given - Provider: Eren Ge RN) furosemide (Lasix) tablet 40 mg 40 mg, Oral, Daily, First dose on Fri03/08/25 at 0900, Recovery & On Unit 0817 (Given - Provid er: Aditya Hernandez RN) insulin glargine (Lantus) injection 18 Units 18 Units, SubCUTAneous, Every morning, First dose on Fri03/06/25 at 0900 0937 (Given - Provider: Delicia Perla RN) 0808 (Given - Provider: Eren Ge RN) 0824 (Given - Provider: Aditya Hernandez RN) Insulin Lispro (Humalog) injection 0-12 Units (CANCELED) 0-12 Units, SubCUTAneous, 3 times daily with meals, First dose on Fri03/05/25 at 1200, Moderate dose Sliding scale: <150 = 0 unit 151-200 = 2 units 201-250 = 4 units 251-300 = 6 units 301-350 = 8 units 351-400 = 10 units > 400 = 12 units and call endocrine 0700 (Not Given - Provider: Tatum Ruggiero RN - Reason: Order parameters not met - Comment: BS 150)1311 (Given - Provider: Delicia Perla RN)1852 (Given - Provider: Delicia Perla RN) 0809 (Given - Provider: Eren Ge, PEDRO)1318 (Given - Provider: Eren Ge, PEDRO)1702 (Not Given - Provider: Eren Ge RN - Reason: Order parameters not met) 0825 (Given - Provider: Aditya Hernandez RN - Comment: BGT 188) Insulin Lispro (Humalog) injection 0-6 Units 0-6 Units, SubCUTAneous, 3 times daily with meals, First dose on Fri03/08/25 at 1200, Low dose Sliding scale: <150 = 0 unit 151-200 = 1 unit 201-250 = 2 units 251-300 = 3 units 301-350 = 4 units 351-400 = 5 units > 400 = 6 units and call endocrine 1156 (Given - Provid er: Aditya Hernandez RN - Comment: BGT 167) Insulin Lispro (Humalog) injection 6 Units (CANCELED) 6 Units, SubCUTAneous, 3 times daily with meals, First dose on Fri03/05/25 at 1200 0700 (Given - Provider: Tatum Ruggiero RN)1312 (Given - Provider: Delicia Perla RN)1852 (Given - Provider: Delicia Perla RN) 0809 (Given - Provider: Eren Ge RN)1318 (Given - Provider: Eren Ge, PEDRO)1835 (Given - Provider: Eren Ge, PEDRO) Insulin Lispro (Humalog) injection 8 Units 8 Units, SubCUTAneous, 3 times daily with meals, First dose (after last modification) on Fri03/08/25 at 0800, Hold if not eating 0824 (Given - Provid er: Aditya Hernandez RN)1156 (Given - Provider: Aditya Hernandez RN) ketorolac (Toradol) injection 15 mg (COMPLETED) 15 mg, IntraVENous, Every 6 hours, First dose on Fri03/06/25 at 0930, For 1 day 0935 (Given - Provider: Delicia Perla RN)1526 (Given - Provider: Delicia Perla RN)2051 (Given - Provider: Tatum Ruggiero RN) 035 (Given - Provider: Rachael Zavala RN) Lidocaine 4 % patch 1 patch 1 patch, Topical, Administer over 12 Hours, Daily, First dose on Fri03/04/25 at 1230, Recovery & On Unit, Cut in half and place on both sides of the incision. Patch may remain in place for up to 12 hours in any 24 hour period. 0937 (Medication Applied - Provider: Delicia Perla, PEDRO)2051 (Medication Removed - Provider: Tatum Ruggiero RN) 807 (Medication Applied - Provider: Eren Ge, PEDRO)2013 (Medication Removed - Provider: Elinor Zamora, PEDRO) 08 (Medication Applied - Provider: Aditya Hernandez, RN)1322 (Due: Medication Removed - Provider: Automatic Discharge Provider - Comment: Time automatically adjusted from order being discontinued) methocarbamol (Robaxin) tablet 1,000 mg 1,000 mg, Oral, Every 8 hours scheduled (3 times per day), First dose on Fri03/05/25 at 1400 0505 (Given - Provider: Tatum Ruggiero RN)1311 (Given - Provider: Delicia Perla RN)2104 (Given - Provider: Tatum Ruggiero RN) 0615 (Given - Provider: Rachael Zavala, PEDRO)1318 (Given - Provider: Eren Ge, PEDRO)2145 (Given - Provider: Con Rey RN) 0513 (Given - Provider: Elinor Zamora, PEDRO)1311 (Given - Provider: Delicia Abdul, PEDRO) metoprolol tartrate (Lopressor) tablet 25 mg 25 mg, Oral, 2 times daily, First dose (after last modification) on Fri03/06/25 at 0930, Hold for SBP less than 105 and/or MAPs less than 65 and/or HR less than 60 0935 (Given - Provider: Delicia Perla RN)2050 (Given - Provider: Tatum Ruggiero RN) 807 (Given - Provider: Eren Ge, PEDRO)2011 (Given - Provider: Elinor Zamora, PEDRO) 0817 (Given - Provider: Aditya Hernandez, PEDRO) mupirocin (Bactroban) 2 % ointment (COMPLETED) Nasal, 2 times daily, First dose on Fri03/04/25 at 1230, For 4 days, Recovery & On Unit 0935 (Given - Provider: Delicia Perla RN)2050 (Given - Provider: Tatum Ruggiero RN) 08 (Given - Provider: Eren Ge, PEDRO)2011 (Given - Provider: Elinor Zamora, PEDRO) pantoprazole (ProtoNix) EC tablet 40 mg 40 mg, Oral, Daily before breakfast, First dose on Fri03/06/25 at 0600, Do not crush, chew, or split. 0505 (Given - Provider: Tatum Ruggiero RN) 0615 (Given - Provider: Rachael Zavala RN) 0513 (Given - Provider: Elinor Zamora, PEDRO) polyethylene glycol (PEG) 3350 (Miralax) packet 17 g 17 g, Oral, Daily, First dose on Fri03/04/25 at 1230, Recovery & On Unit, Bowel Regimen - for prevention of constipation. 0935 (Given - Provider: Delicia Perla RN) 0808 (Given - Provider: Eren Ge, PEDRO) 0817 (Given - Provider: Aditya Hernandez RN) senna-docusate sodium (Senokot-S) 8.6-50 MG tablet 2 tablet 2 tablet, Oral, Nightly, First dose on Fri03/04/25 at 2100, Recovery & On Unit, Bowel Regimen - for prevention of constipation. 2050 (Given - Provider: Tatum Ruggiero RN) 2011 (Given - Provider: Elinor Zamora, PEDRO) simethicone (Mylicon) chewable tablet 80 mg 80 mg, Oral, 4 times daily, First dose on Fri03/05/25 at 0900 0950 (Given - Provider: Delicia Perla RN)1312 (Given - Provider: Delicia Perla, PEDRO)1817 (Given - Provider: Delicia Perla RN)2051 (Given - Provider: Tatum Ruggiero RN) 0809 (Given - Provider: Eren Ge, PEDRO)1410 (Not Given - Provider: Eren Ge, PEDRO - Reason: Patient/family refused)1711 (Not Given - Provider: Eren Ge RN - Reason: Patient/family refused)2013 (Given - Provider: Elinor Zamora RN) 0833 (Not Given - Provider: Delicia Abdul RN - Reason: Patient/family refused)1312 (Not Given - Provider: Delicia Abdul RN - Reason: Patient/family refused) sodium chloride 0.9% (NS) flush 5-40 mL 5-40 mL, IntraCATHeter, Every 8 hours, First dose on Fri03/04/25 at 1230, Recovery & On Unit, For Line Patency: Peripheral IV = 5 mL; Midline or Central Line = 10 mL/lumen. If following IV push medication, administer flush at same rate as the IV push. Flush volume is determined by type of infusion therapy being given. For non-viscous solutions use: Peripheral IV = 5 mL Midline or Central Line = 10 mL/lumen For viscous solutions (i.e. blood components, parenteral nutrition, contrast media, or after obtaining blood sample) use: Peripheral IV = 10 mL Midline or Central Line = 20 mL/lumen 0506 (Given - Provider: Tatum Ruggiero RN)1228 (Given - Provider: Delicia Perla RN)2052 (Given - Provider: Tatum Ruggiero RN) 0616 (Given - Provider: Rachael Zavala RN)1353 (Not Given - Provider: Eren Ge RN - Reason: Other)2146 (Given - Provider: Con Rey RN) 0513 (Given - Provider: Elinor Zamora RN)1400 (Canceled Entry - Provider: Automatic Discharge Provider - Comment: Automatically canceled at discontinue of medication order) PRN Medication Order 03/06/2025 03/07/2025 03/08/2025 calcium gluconate 2000 mg in 100 mL IVPB premix 2,000 mg, IntraVENous, at 50 mL/hr, Administer over 2 Hours, PRN, ionized calcium less than 4.3, Starting on Fri03/04/25 at 1218, [facility], Give 2000 mg for ionized calcium less than 4.3 premix bag dextrose 5 % infusion 100 mL/hr, IntraVENous, PRN, Blood sugar less than 70mg/dL, Starting on Fri03/04/25 at 1218, Recovery [facility] On Unit, Start infusion following administration of dextrose 50% or glucagon. dextrose 50 % solution 12.5 g 12.5 g, IntraVENous, PRN, low blood sugar, Blood glucose less than 70 mg/dL and patient NOT ALERT or NPO., Starting on Fri03/04/25 at 1218, Recovery [facility] On Unit, If patient does not respond within 5 minutes, repeat dose x1. Start D5W at 100 mL/hour until ordering provider can be reached. Repeat blood glucose in 15 minutes. If blood glucose is less than 70 mg/dL, repeat treatment and recheck blood glucose in 15 minutes x2. If using Glucostabilizer, dose as instructed per system. glucagon (human recombinant) injection 1 mg 1 mg, IntraMUSCular, PRN, low blood sugar, Blood glucose less than 70 mg/dL and patient NOT ALERT or NPO and does not have IV access., Starting on Fri03/04/25 at 1218, Recovery [facility] On Unit, After administration, attempt intravenous access and start D5W at 100 mL/hr. Repeat blood glucose in 15 minutes x2 and notify provider. glucose oral gel 15 g 15 g, Oral, As needed, low blood sugar, Starting on Fri03/04/25 at 1218, Recovery [facility] On Unit, If blood glucose less than 50 mg/dL and patient ALERT and NOT NPO, give 2 tubes glucose gel. If blood glucose less than 70 mg/dL and patient ALERT and NOT NPO, give 1 tube glucose gel. Repeat blood glucose in 15 minutes. If blood glucose is less than 70 mg/dL, repeat treatment and recheck blood glucose in 15 minutes x2 and notify provider. HYDROmorphone (Dilaudid) injection 0.5 mg (CANCELED)(Linked Group 1) 0.5 mg, IntraVENous, Every 2 hour PRN, severe pain (7-10), Starting on Fri03/05/25 at 1051, If oral and injectable narcotics ordered, use oral first and only use injectable if oral is ineffective or cannot take oral. Do Not give oral and injectable within 1 hour of each other unless specifically ordered. 0007 (Given - Provider: Tatum Ruggiero RN)0502 (Given - Provider: Tatum Ruggiero RN)1227 (Given - Provider: Delicia Perla RN) ipratropium-albuterol (Duo-Neb) 0.5-2.5 mg/3 mL nebulizer solution 3 mL 3 mL, Nebulization, 3 times daily PRN, wheezing, shortness of breath, Starting on Fri03/04/25 at 1218, Recovery [facility] On Unit magnesium hydroxide (Milk of Magnesia) 400 MG/5ML suspension 30 mL 30 mL, Oral, Daily PRN, constipation, Starting on Fri03/04/25 at 1218, [facility], 1st line for treatment of constipation - give scheduled if no bowel movement in past 24 hours magnesium sulfate IVPB 4,000 mg(Linked Group 2) 4,000 mg, IntraVENous, at 25 mL/hr, Administer over 4 Hours, As needed, Per Magnesium Replacement Protocol, Starting on Fri03/04/25 at 1218, Recovery [facility] On Unit, Mg Lab Replacement Action 1.4-1.6 2 gram IVPB x 1 doses 1.0-1.3 4 gram IVPB x 1 doses Less than 1.0 CALL PHYSICIAN and 4 gram IVPB x 1 doses Infuse at 1 gram/hr. Repeat Mag level next AM. Not for use in Patients with CrCl less than 30 mL/min. magnesium sulfate IVPB premix 2,000 mg(Linked Group 2) 2,000 mg, IntraVENous, at 25 mL/hr, Administer over 2 Hours, As needed, Per Magnesium Replacement Protocol, Starting on Fri03/04/25 at 1218, Recovery [facility] On Unit, Mg Lab Replacement Action 1.4-1.6 2 gram IVPB x 1 doses 1.0-1.3 4 gram IVPB x 1 doses Less than 1.0 CALL PHYSICIAN and 4 gram IVPB x 1 doses Infuse at 1 gram/hr. Repeat Mag level next AM. Not for use in Patients with CrCl less than 30 mL/min. naloxone (Narcan) injection 0.4 mg 0.4 mg, IntraVENous, Every 5 min PRN, opioid reversal, respiratory depression, Starting on Fri03/04/25 at 1717, +++ For RR <10, pinpoint pupils, over sedation for opioid reversal - MUST notify bone worker provider immediately after first dose, may give IM or SQ if no IV access +++ ondansetron (Zofran) injection 4 mg(Linked Group 3) 4 mg, IntraVENous, Every 6 hours PRN, nausea, vomiting, Starting on Fri03/04/25 at 1218, Recovery [facility] On Unit, 1st Line. Give IV if patient is unable to take orally. If inadequate response within 60 minutes, proceed to next-line agent or contact provider if no further options ordered. ondansetron ODT (Zofran-ODT) disintegrating tablet 4 mg(Linked Group 3) 4 mg, Oral, Every 8 hours PRN, nausea, vomiting, Starting on 03/04/25 at 1218, Recovery [facility] On Unit, 1st Line. If inadequate response within 60 minutes, proceed to next-line agent or contact provider if no further options ordered. Patient should allow tablet to dissolve on tongue. Do not remove from blister pack until just before administering. oxyCODONE (Roxicodone) immediate release tablet 10 mg(Linked Group 4) 10 mg, Oral, Every 4 hours PRN, severe pain (7-10), Starting on 03/05/25 at 0836, [facility] Unit 0257 (Given - Provider: Tatum Ruggiero RN)0657 (Given - Provider: Tatum Ruggiero RN)1124 (See Alternative - Provider: Delicia Perla RN)1528 (See Alternative - Provider: Delicia Perla RN)192 (See Alternative - Provider: Delicia Perla RN) 035 (See Alternative - Provider: Rachael Zavala RN)1948 (Given - Provider: Elinor Zamora RN - Comment: Chest incision)2358 (See Alternative - Provider: Elinor Zamora RN) 1141 (See Alternative - Provider: Aditya Hernandez RN) oxyCODONE (Roxicodone) immediate release tablet 5 mg(Linked Group 4) 5 mg, Oral, Every 4 hours PRN, moderate pain (4-6), Starting on 03/05/25 at 0836, [facility] Unit 0257 (See Alternative - Provider: Tatum Ruggiero RN)0657 (See Alternative - Provider: Tatum Ruggiero RN)1124 (Given - Provider: Delicia Perla RN)1528 (Given - Provider: Delicia Perla RN)1921 (Given - Provider: Delicia Perla RN) 0351 (Given - Provider: Rachael Zavala RN)194 (See Alternative - Provider: Elinor Zamora RN)235 (Given - Provider: Elinor Zamora RN - Comment: Incisional pain) 1141 (Given - Provider: Aditya Hernandez RN) potassium chloride 20 mEq in NS 250 mL IVPB (premix)(Linked Group 5) 20 mEq, IntraVENous, Administer over 2 Hours, Every 8 hours PRN, hypokalemia, Starting on Fri03/04/25 at 1218, Recovery [facility] On Unit, For Peripheral Line Use K Lab Replacement Action 3.1-3.5 20 mEq IVPB x 1 doses 2.7-3.0 40 mEq IVPB x 1 doses less than 2.7 CALL PROVIDER and administer 40 mEq IVPB x 1 dose Infuse at 10 mEq/hr Repeat Potassium lab 1 hour after administration. Protocol not for use in Patients with CrCl less than 30mL/min potassium chloride 40 mEq in NS 500 mL IVPB (premix)(Linked Group 5) 40 mEq, IntraVENous, at 125 mL/hr, Administer over 4 Hours, 3 times daily PRN, hypokalemia, Starting on Fri03/04/25 at 1218, Recovery [facility] On Unit, For Peripheral Line Use. K Lab Replacement Action 3.1-3.5 20 mEq IVPB x 1 doses 2.7-3.0 40 mEq IVPB x 1 doses less than 2.7 CALL PROVIDER and administer 40 mEq IVPB x 1 dose Infuse at 10 mEq/hr Repeat Potassium lab 1 hour after administration. Protocol not for use in Patients with CrCl less than 30mL/min potassium chloride CR (Klor-Con M10) ER tablet 20 mEq 20 mEq, Oral, PRN, Hypokalemia, Starting on Fri03/05/25 at 0000, Recovery [facility] On Unit, If patient is intubated or not tolerating PO use PRN IV replacement protocol Potassium level Dose LESS than 3.0 = Give 20 mEq x 3 doses 3.0-3.6 = Give 20 mEq x 2 doses Recheck potassium level 2 hour after replacement given, place order for lab under [place] If potassium level LESS than 3 after 1st replacement: Call surgeon. Do not crush or break. Do not crush or chew. 0701 (Given - Provider: Elinor Zamora RN)0702 (Given - Provider: Elinor Zamora RN) potassium chloride IVPB 20 mEq(Linked Group 5) 20 mEq, IntraVENous, at 50 mL/hr, Administer over 1 Hours, 3 times daily PRN, hypokalemia, Starting on Fri03/04/25 at 1218, Recovery [facility] On Unit, For Central Line Use Only K Lab Replacement Action 3.1-3.5 20 mEq IVPB x 2 doses 2.7-3.0 20 mEq IVPB x 2 doses (40 mEq Total) less than 2.7 CALL PROVIDER and administer 20 mEq IVPB x 2 doses (40 mEq Total) Infuse at 20 mEq/hr Repeat Potassium lab 1 hour after final administration. Protocol not for use in Patients with CrCl less than 30mL/min For central line administration only. sodium chloride 0.9% (NS) flush 5-40 mL 5-40 mL, IntraVENous, PRN, line care, before and after blood draws, infusion, or medication administration, Starting on Fri03/04/25 at 1218, Recovery [facility] On Unit, For Line Patency: Peripheral IV = 5 mL; Midline or Central Line = 10 mL/lumen. If following IV push medication, administer flush at same rate as the IV push. Flush volume is determined by type of infusion therapy being given. For non-viscous solutions use: Peripheral IV = 5 mL Midline or Central Line = 10 mL/lumen For viscous solutions (i.e. blood components, parenteral nutrition, contrast media, or after obtaining blood sample) use: Peripheral IV = 10 mL Midline or Central Line = 20 mL/lumen Linked Groups Order Group 1: HYDROmorphone (Dilaudid) injection 0.25 mg (CANCELED) 0.25 mg, IntraVENous, Every 2 hour PRN, moderate pain (4-6), Starting on 03/05/25 at 1051, If oral and injectable narcotics ordered, use oral first and only use injectable if oral is ineffective or cannot take oral. Do Not give oral and injectable within 1 hour of each other unless specifically ordered. Or HYDROmorphone (Dilaudid) injection 0.5 mg (CANCELED)Jump to med 0.5 mg, IntraVENous, Every 2 hour PRN, severe pain (7-10), Starting on 03/05/25 at 1051, If oral and injectable narcotics ordered, use oral first and only use injectable if oral is ineffective or cannot take oral. Do Not give oral and injectable within 1 hour of each other unless specifically ordered. Group 2: magnesium sulfate IVPB premix 2,000 mgJump to med 2,000 mg, IntraVENous, at 25 mL/hr, Administer over 2 Hours, As needed, Per Magnesium Replacement Protocol, Starting on Fri03/04/25 at 1218, Recovery [facility] On Unit, Mg Lab Replacement Action 1.4-1.6 2 gram IVPB x 1 doses 1.0-1.3 4 gram IVPB x 1 doses Less than 1.0 CALL PHYSICIAN and 4 gram IVPB x 1 doses Infuse at 1 gram/hr. Repeat Mag level next AM. Not for use in Patients with CrCl less than 30 mL/min. Or magnesium sulfate IVPB 4,000 mgJump to med 4,000 mg, IntraVENous, at 25 mL/hr, Administer over 4 Hours, As needed, Per Magnesium Replacement Protocol, Starting on Fri03/04/25 at 1218, Recovery & On Unit, Mg Lab Replacement Action 1.4-1.6 2 gram IVPB x 1 doses 1.0-1.3 4 gram IVPB x 1 doses Less than 1.0 CALL PHYSICIAN and 4 gram IVPB x 1 doses Infuse at 1 gram/hr. Repeat Mag level next AM. Not for use in Patients with CrCl less than 30 mL/min. Group 3: ondansetron ODT (Zofran-ODT) disintegrating tablet 4 mgJump to med 4 mg, Oral, Every 8 hours PRN, nausea, vomiting, Starting on Fri03/04/25 at 1218, Recovery & On Unit, 1st Line. If inadequate response within 60 minutes, proceed to next-line agent or contact provider if no further options ordered. Patient should allow tablet to dissolve on tongue. Do not remove from blister pack until just before administering. Or ondansetron (Zofran) injection 4 mgJump to med 4 mg, IntraVENous, Every 6 hours PRN, nausea, vomiting, Starting on Fri03/04/25 at 1218, Recovery [facility] On Unit, 1st Line. Give IV if patient is unable to take orally. If inadequate response within 60 minutes, proceed to next-line agent or contact provider if no further options ordered. Group 4: oxyCODONE (Roxicodone) immediate release tablet 5 mgJump to med 5 mg, Oral, Every 4 hours PRN, moderate pain (4-6), Starting on Fri03/05/25 at 0836, Recovery [facility] On Unit Or oxyCODONE (Roxicodone) immediate release tablet 10 mgJump to med 10 mg, Oral, Every 4 hours PRN, severe pain (7-10), Starting on Fri03/05/25 at 0836, Recovery [facility] On Unit Group 5: potassium chloride IVPB 20 mEqJump to med 20 mEq, IntraVENous, at 50 mL/hr, Administer over 1 Hours, 3 times daily PRN, hypokalemia, Starting on Fri03/04/25 at 1218, Recovery [facility] On Unit, For Central Line Use Only K Lab Replacement Action 3.1-3.5 20 mEq IVPB x 2 doses 2.7-3.0 20 mEq IVPB x 2 doses (40 mEq Total) less than 2.7 CALL PROVIDER and administer 20 mEq IVPB x 2 doses (40 mEq Total) Infuse at 20 mEq/hr Repeat Potassium lab 1 hour after final administration. Protocol not for use in Patients with CrCl less than 30mL/min For central line administration only. Or potassium chloride 20 mEq in NS 250 mL IVPB (premix)Jump to med 20 mEq, IntraVENous, Administer over 2 Hours, Every 8 hours PRN, hypokalemia, Starting on Fri03/04/25 at 1218, Recovery & On Unit, For Peripheral Line Use K Lab Replacement Action 3.1-3.5 20 mEq IVPB x 1 doses 2.7-3.0 40 mEq IVPB x 1 doses less than 2.7 CALL PROVIDER and administer 40 mEq IVPB x 1 dose Infuse at 10 mEq/hr Repeat Potassium lab 1 hour after administration. Protocol not for use in Patients with CrCl less than 30mL/min Or potassium chloride 40 mEq in NS 500 mL IVPB (premix)Jump to med 40 mEq, IntraVENous, at 125 mL/hr, Administer over 4 Hours, 3 times daily PRN, hypokalemia, Starting on Fri03/04/25 at 1218, Recovery & On Unit, For Peripheral Line Use. K Lab Replacement Action 3.1-3.5 20 mEq IVPB x 1 doses 2.7-3.0 40 mEq IVPB x 1 doses less than 2.7 CALL PROVIDER and administer 40 mEq IVPB x 1 dose Infuse at 10 mEq/hr Repeat Potassium lab 1 hour after administration. Protocol not for use in Patients with CrCl less than 30mL/min FOR RECORDS PERTAINING TO PATIENTS WHO ARE OR HAVE BEEN ENROLLED IN A CHEMICAL DEPENDENCY/SUBSTANCEABUSE PROGRAM, SOME INFORMATION MAY BE OMITTED. This clinical summary was aggregated from multiple sources. Caution should be exercised in using it in the provision of clinical care. This summary normalizes information from multiple sources, and as a consequence, information in this document may materially change the coding, format and clinical context of patient data. In addition, data may be omitted in some cases. CLINICAL DECISIONS SHOULD BE BASED ON THE PRIMARY CLINICAL RECORDS. [facility]. provides no warranty or guarantee of the accuracy or completeness of information in this document.
--- OUTSIDE RECORDS SUMMARY | 2025-03-17 21:31 | XMS RPT_ITS | CCD ---
Author Organization [facility] Care Team Providers Care Foreign Service Officer Name Role Phone Oswald Quarles MD Primary Care Provider [phone] [facility], Sage Unavailable [facility] Attending Unavailable [facility] Primary Care Unavailable [facility] Admitting Unavailable Oswald Quarles MD Primary Care Provider [facility], Keti Unavailable OSWALD QUARLES MD Referring Unavailable [...] Referring Unavailable KIRLAY, FRANCISKA Attending Unavailable [place], [place] Referring Unavailable Care Physician, No Primary Primary Care Unava ilable Iva, [place] Attending Unavailable Care Physician, No Primary Primary Care Unava ilable Iva, [place] Referring Unavailable Iva, [place] Attending Unavailable Care Physician, No Primary Primary Care Unava ilable Iva, [place] Attending Unavailable [place]va, [place] Attending Unavailable Robina, Oswald Referring Unavailable Robina, Oswald Primary Care Unavailable Iva, Az Attending Unavailable Robina, Oswald Primary Care Unavailable [place], [place] Referring Unavailable HOSSEIN ROMERO Attending Unavailable JEWEL [...] Laverne MURRY, Dr. Jones Other Provider [phone] Allergies Allergy Classification Reported Allergen(s) Allergy Type Date of Onset Reaction(s) Facility (20 sources) atorvastatin; Translations: [ATORVASTATIN CALCIUM] Drug Allergy 5 Other: See Comments, Other [facility] Work Phone: (20 sources) [place] extract; Translations: [CUCUMBER] Drug Allergy 4 Itching [facility] Work Phone: (20 sources) watermelon preparation; Translations: [WATERMELON] Drug Allergy 4 Swelling [facility] Work Phone: (6 sources) atorvastatin Drug Allergy 5 myalgias [facility] (1 source) atorvastatin Drug Allergy 5 [facility] Repository Medications Current Medications Medication Drug Class(es) [...] Continuous Glu cose Sensor (Dexcom G7 Sensor) [facility] Indications: Type 2 diabetes mellitus with hyperglycemia, [...] 29, 2015 12:31pm 20 ml albumin human, penitentiary 250 mg/ml injection (4 sources) Human Serum [...] to 180 mL/hr) in patients with hypoproteinemia [id number] 200 actuat albuterol 0.09 mg/actuat metered dose [...] direction docusate sodium 50 mg / sennosides, penitentiary 8.6 mg oral tablet (2 sources) Start: [...] on above: Take 1 capsule by mo [facility] daily at bedtime for 30 days. [...] Comment on above: Take 1 tablet by [facility] once daily. Take 2.5 mg by mouth [...] Comment on above: Take 4 tablets by [facility] daily with breakfast. metoprolol tartrate 25 mg [...] Comment on above: Take 1 tablet by [facility] once daily. mupirocin 0.02 mg/mg topical ointment [...] costa th once daily. 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 angina pectoris] Onset: 05-10-2015 [...] Auto (Unsp spec) [#/Vol] 1.02 10*3/uL 0.83-4.51 [facility] Absolute neutrophil countOrd ered By: Veronique Seymour on 03-17-2025 Neutrophils (Bld) [#/Vol] 6.7 10*3/uL 2.0-7.7 [facility] Anion gap in Serum or Plasma Ordered By: Veronique Seymour on 03-17-2025 Anion gap [Moles/Vol] 12 mmol/L 5-15 [facility] Automated lymphocyte count a s percentage of total leukocytesOrdered By: Veronique Seymour on 03-17-2025 Lymphocytes/100 WBC Auto (Unsp spec) 12.0 % Low 19-41 [facility] BUN/creatinine ratioOrdered By: Veronique Seymour on 03-17-2025 Urea nitrogen/Creatinine [Mass ratio] 18.1 mg/mg 10-20 [facility] Basophil percentageOrdered B y: Veronique Seymour on 03-17-2025 Basophils/100 WBC (Bld) 0.9 % 0-1 [facility] Carbon dioxide, total [Moles /volume] in Central venous bloodOrdered By: Veronique Seymour on 03-17-2025 CO2 [Moles/Vol] 24.8 mmol/L 21.0-32.0 [facility] Chloride assayOrdered By: Jens Seymour on 03-17-2025 Chloride [Moles/Vol] 101 mmol/L 98-108 [facility] Eosinophil percentageOrdered By: Veronique Seymour on 03-17-2025 Eosinophils/100 WBC (Bld) 3.9 % 0-5 [facility] Erythrocyte distribution wid th ratioOrdered By: Veronique Seymour on 03-17-2025 Erythrocyte distribution width (RBC) [Ratio] 13.7 % 11.6-14.6 [facility] Erythrocyte distribution wid th standard deviationOrdered By: Veronique Seymour on 03-17-2025 Erythrocyte distribution width (RBC) [Ratio] 43.7 fl 35.1-43.9 [facility] Glomerular filtration rate ( GFR) estimation/1.73 sq m using serum, plasma, or whole bOrdered By: Veronique Seymour on 03-17-2025 GFR/1.73 sq M.predicted among non-blacks MDRD (S/P/Bld) [Vol rate/Area] 103 mL/min/{1.73_m2} >60 [facility] Comment on above: mL/min/1.73m2 CKD-EP I Creatinine Equation (2020) Hematocrit Auto (Bld) [Volum e fraction]Ordered By: Veronique Seymour on 03-17-2025 Hematocrit (Bld) [Volume fraction] 36.0 % Low 40-54 [facility] Hemoglobin measurementOrdere d By: Veronique Seymour on 03-17-2025 Hemoglobin (Bld) [Mass/Vol] 12.0 g/dL Low 13.0-16.5 [facility] Immature granulocytes/100 WB C Auto (Bld)Ordered By: Veronique Seymour on 03-17-2025 Immature granulocytes/100 WBC (Bld) 0.400 % 0.0-0.9 [facility] Comment on above: IG% - Immature Granu locytes (promyelocytes, myelocytes and metamyelocytes) > 1% indicates that a LEFT SHIFT is Present. International normalized rat io (INR) calculationOrdered By: Veronique Seymour on 03-17-2025 INR Coag (Bld) [Relative time] 1.0 {INR} [facility] MCV (mean corpuscular volume ) determinationOrdered By: Veronique Seymour on 03-17-2025 MCV (RBC) [Entitic vol] 87.0 fL 80-94 [facility] Mean corpuscular hemoglobin (MCH) determinationOrdered By: Veronique Seymour on 03-17-2025 MCH (RBC) [Entitic mass] 29.0 pg 27.0-32.0 [facility] Mean corpuscular hemoglobin concentration (MCHC) determinationOrdered By: Veronique Seymour on 03-17-2025 MCHC (RBC) [Mass/Vol] 33.3 g/dL 32-36 [facility] Mean platelet volume determi nationOrdered By: Veronique Seymour on 03-17-2025 Platelet mean volume (Bld) [Entitic vol] 9.5 fL 6.2-12.0 [facility] Monocyte percentageOrdered B y: Veronique Seymour on 03-17-2025 Monocytes/100 WBC (Bld) 4.8 % 0-10 [facility] Neutrophil percentageOrdered By: Veronique Seymour on 03-17-2025 Neutrophils/100 WBC (Bld) 78.0 % High 47-70 [facility] Nucleated red blood cell per centageOrdered By: Veronique Seymour on 03-17-2025 Nucleated RBC/100 WBC (Bld) [Ratio] 0 % 0-5 [facility] Platelet countOrdered By: Jens Seymour on 03-17-2025 Platelets (Bld) [#/Vol] 375 10*3/uL 150-450 [facility] Potassium measurement (mass/ volume)Ordered By: Veronique Seymour on 03-17-2025 Potassium (Unsp spec) [Mass/Vol] 4.2 mmol/L 3.3-5.1 [facility] Comment on above: Hemolysis present, R esults could be affected. Prothrombin timeOrdered By: Veronique Seymuor on 03-17-2025 PT Coag (PPP) [Time] 13.3 s 11.7-14.9 [facility] RBC Auto (Bld) [#/Vol]Ordere d By: Veronique Seymour on 03-17-2025 RBC (Bld) [#/Vol] 4.14 10*6/uL Low 4.6-6.2 [facility] Serum creatinine measurement (mass/volume)Ordered By: Veronique Seymour on 03-17-2025 Creatinine [Mass/Vol] 0.81 mg/dL 0.70-1.20 [facility] Serum glucose measurement (m ass/volume)Ordered By: Veronique Seymour on 03-17-2025 Glucose [Mass/Vol] 169 mg/dL High 70-99 [facility] Serum or plasma calcium yash urement (mass/volume)Ordered By: Veronique Seymour on 03-17-2025 Calcium [Mass/Vol] 9.2 mg/dL 7.6-11.0 [facility] Serum or plasma urea nitroge n measurement (mass/volume)Ordered By: Veronique Seymour on 03-17-2025 Urea nitrogen [Mass/Vol] 15 mg/dL 4-19 [facility] Sodium levelOrdered By: Oskar Seymour on 03-17-2025 Sodium [Moles/Vol] 137 mmol/L 133-145 [facility] Troponin T.cardiac [Mass/vol ume] in Serum or Plasma by High sensitivity methodOrdered By: Veronique Seymour on 03-17-2025 Troponin T.cardiac High sensitivity method [Mass/Vol] 34 ng/L High <22 [facility] White blood cell (WBC) count Ordered By: Veronique Seymour on 03-17-2025 WBC (Bld) [#/Vol] 8.5 10*3/uL 4.4-11.0 [facility] 37on 03-15-2025 37 Weight restriction measures 1-4 weeks from date of surgery- 10lbs weight restriction: 04/01/25 5-8 weeks from date of surgery- 20lbs weight restriction approximate end date:04/29/25 Normal [facility] Office Visiton 03-15-2025 Follow-up visit [id number] Caio Turk 1965 M Date Provider Department Center 03/15/2025 [id number] ROMERO [facility] None Family History Problem Relation Age of Onset Diabetes Mother Coronary artery disease Mother Heart attack Mother Stroke Mother Diabetes Father Heart disease Mother Diabetes type II Mother Cancer Father Family Status - Relation Status Age at Mother Father Level of Service:72722 OR POSTOP FOLLOW UP VISIT RELATED TO ORIGINAL PX Reason for Visit and Comments: Post-op [483] Normal [facility] Progress Noteon 03-15-2025 Progress Note [facility] Medical [facility]: CT SURGE[facility] [address] [facility] [address] Dept: [phone] Dept Loc: [phone] Visit type: Established patient - in person [...] medically stable, [facility]. 03/15/25: 59 y.o. male who [...] echocardiography, and other (more content not included)... [facility] 36on 03-09-2025 36 Called [facility] and have them fax over all labs results. [facility] [id number] 03-08-2025 [id number] Discussed Home Care Services available to patient [...] any other needs arise prior to DC. [facility] 36on 03-08-2025 36 Hello- can you pleas e call patient to get a sooner appt? Thanks Keena Prasad APRN - MANAGER WINTER [facility] BASIC METABOLIC PANELon 02-12 Anion gap [Moles/Vol] 6 mmol/L Normal 3-13 [facility] Comment on above: Performed By: #### L [id number], [id number] #### Mold Laminator: EDVIN HAYS ([id number]) [facility]) [address] [place] [address] Calcium [Mass/Vol] 8.4 mg/dL Normal 8.4-10.2 [facility] Comment on above: Performed By: #### L [id number], [id number] #### Mold Laminator: EDVIN HAYS ([id number]) [facility] ([facility]) [address] [place] [address] [place] Chloride [Moles/Vol] 104 mmol/L Normal 98-107 [facility] Comment on above: Performed By: #### L [id number], [id number] #### Mold Laminator: EDVIN HAYS ([id number]) [facility] [address] [place] [address] [place] CO2 [Moles/Vol] 30 mmol/L High 22-29 [facility] Comment on above: Performed By: #### L AB314, [id number] #### Mold Laminator: EDVIN HAYS ([id number]) [facility]) [address] [place] [address] Creatinine [Mass/Vol] 0.73 mg/dL Normal 0.72-1.25 [facility] Comment on above: Performed By: #### L AB314, [id number] #### Mold Laminator: EDVIN AHYS ([id number]) [facility]) [address] [place] [address] GLOMERULAR FILTRATION RATE ML/MIN/1.73 SQ M.PREDICTED >90.0 Normal >60.0 [facility] Comment on above: Result Comment: Calc ulation based on the Chronic Kidney Disease Epidemiology Collaboration (CKD-EPI) equation refit without adjustment for race Performed By: #### L AB314, [id number] #### Mold Laminator: EDVIN HAYS ([id number]) [facility]) [address] [place] [address] [place] Glucose [Mass/Vol] 194 mg/dL High 74-100 [facility] Comment on above: Performed By: #### L AB314, [id number] #### Mold Laminator: EDVIN HAYS ([id number]) [facility]) [address] [place] [address] Potassium [Moles/Vol] 3.4 mmol/L Low 3.5-5.1 [facility] Comment on above: Result Comment: [facility] potassium values may be up to 0.5 mmol/L lower than serum values. Performed By: #### L AB314, [id number] #### Mold Laminator: EDVIN HAYS ([id number]) [facility]) [address] [place] [address] Sodium [Moles/Vol] 140 mmol/L Normal 136-145 [facility] Comment on above: Performed By: #### L AB314, [id number] #### Mold Laminator: EDVIN HAYS ([id number]) [facility] ([facility]) [address] [place] [address] Urea nitrogen [Mass/Vol] 20 mg/dL Normal 9-23 [facility] Comment on above: Performed By: #### L AB314, [id number] #### Mold Laminator: EDVIN HAYS ([id number]) [facility] [address] [place] [address] Basic metabolic 1998 panelon 03-08-2025 Anion gap [Moles/Vol] 6 mmol/L 3 - 13 mmol/L [facility] Calcium [Mass/Vol] 8.4 mg/dL 8.4 - 10. 2 mg/dL [facility] [employer] Chloride [Moles/Vol] 104 mmol/L 98 - 10 7 mmol/L [facility] CO2 [Moles/Vol] 30 mmol/L High 22 - 29 mmol/L [facility] Creatinine [Mass/Vol] 0.73 mg/dL 0.72 - 1.25 mg/dL [facility] GFR/1.73 sq M.predicted (S/P/Bld) [Vol rate/Area] - PINF [facility] Comment on above: Calculation based on the Chronic Kidney Disease Epidemiology Collaboration (CKD-EPI) equation refit without adjustment for race Glucose [Mass/Vol] 194 mg/dL High 74 - 100 mg/dL [facility] Interpretation and review of laboratory results Abnormal [facility] Potassium [Moles/Vol] 3.4 mmol/L Low 3.5 - 5.1 mmol/L [facility] Comment on above: Plasma potassium norma ues may be up to 0.5 mmol/L lower than serum values. Sodium [Moles/Vol] 140 mmol/L 136 - 145 mmol/L [facility] Urea nitrogen [Mass/Vol] 20 mg/dL 9 - 23 mg/dL [facility] CBC (HEMOGRAM)on 03-08-2025 Erythrocyte distribution width (RBC) [Ratio] 13.6 % Normal 11.5-15.0 [facility] Comment on above: Performed By: #### L AB103, [id number] #### Mold Laminator: EDVIN HAYS ([id number]) [facility]) [address] [place] [address] Hematocrit (Bld) [Volume fraction] 30.8 % Low 40.0-52.0 [facility] Comment on above: Performed By: #### L AB103, LAB15 #### Mold Laminator: EDVIN HAYS ([id number]) [facility]) [address] [place] [address] Hemoglobin (Bld) [Mass/Vol] 10.2 g/dL Low 13.0-18.0 [facility] Comment on above: Performed By: #### L AB103, LAB15 #### Mold Laminator: EDVIN HAYS ([id number]) [facility]) [address] [place] [address] MCH (RBC) [Entitic mass] 28.9 pg Normal 26.0-34.0 [facility] Comment on above: Performed By: #### L AB103, LAB15 #### Mold Laminator: EDVIN HAYS ([id number]) [facility]) [address] [place] [address] MCHC 33.1 % Normal 30.5-36.0 [facility] Comment on above: Performed By: #### L AB103, LAB15 #### Mold Laminator: EDVIN HAYS ([id number]) [facility]) [address] [place] [address] MCV (RBC) [Entitic vol] 87.3 fL Normal 77.0-99.0 [facility] Comment on above: Performed By: #### L AB103, LAB15 #### Mold Laminator: EDVIN HAYS ([id number]) [facility]) [address] [place] [address] Platelet mean volume (Bld) [Entitic vol] 11.3 fL Normal 9.0-12.7 [facility] Comment on above: Performed By: #### L AB103, LAB15 #### Mold Laminator: EDVIN HAYS ([id number]) [facility]) [address] [place] [address] Platelets (Bld) [#/Vol] 167 10*3/uL Normal 140-440 [facility] Comment on above: Performed By: #### L AB103, LAB15 #### Mold Laminator: EDVIN HAYS ([id number]) [facility]) [address] [place] [address] RBC (Bld) [#/Vol] 3.53 10*6/uL Low 4.40-5.90 [facility] Comment on above: Performed By: #### Vicente AB103, LAB15 #### Mold Laminator: EDVIN HAYS ([id number]) [facility]) [address] [place] [address] WBC (Bld) [#/Vol] 4.6 10*3/uL Normal 3.6-10.7 [facility] Comment on above: Performed By: #### L AB103, LAB15 #### Mold Laminator: EDVIN HAYS ([id number]) [facility]) [address] [place] [address] CBC panel Auto (Bld)on 03-08 Erythrocyte distribution width (RBC) [Ratio] 13.6 % 11.5 - 15.0 % [facility] Hematocrit (Bld) [Volume fraction] 30.8 % Low 40.0 - 52.0 % [facility] Hemoglobin (Bld) [Mass/Vol] 10.2 g/dL Low 13.0 - 18.0 g/dL [facility] Interpretation and review of laboratory results Abnormal [facility] MCH (RBC) [Entitic mass] 28.9 pg 26. 0 - 34.0 pg [facility] MCHC (RBC) [Mass/Vol] 33.1 % 30.5 - 36.0 % [facility] MCV (RBC) [Entitic vol] 87.3 fL 77.0 - 99.0 fL [facility] Platelet mean volume (Bld) [Entitic vol] 11.3 fL 9.0 - 12.7 fL [facility] Platelets (Bld) [#/Vol] 167 10*3/uL 140 - 440 10*3/uL [facility] RBC (Bld) [#/Vol] 3.53 10*6/uL Low 4.40 - 5.90 10*6/uL [facility] WBC (Bld) [#/Vol] 4.6 10*3/uL 3.6 - 10.7 10*3/uL [facility] - Chemistry and C hemistry - challengeon 03-08-2025 Glucose [Mass/Vol] 167 mg/dL High 70 - 100 mg/dL [facility] Glucose [Mass/Vol] 188 mg/dL High 70 - 100 mg/dL [facility] Magnesium [Mass/Vol] 1.7 mg/dL 1.6 - 2 .6 mg/dL [facility] MAGNESIUMon 03-08-2025 Magnesium [Mass/Vol] 1.7 mg/dL Normal 1.6-2.6 [facility] Comment on above: Result Comment: GEORGE Hernadez COMMENTS: Higher values can be expected in females during menses. Performed By: #### L [id number], [id number] #### Mold Laminator: EDVIN HAYS ([id number]) [facility] ([facility]) [address] [place] [address] Magnesium [Mass/Vol]on 03-08 Interpretation and review of laboratory results Normal [facility] Higher values can be expected in females during menses. [facility] No Panel Informationon 03-08 Interpretation and review of laboratory results Abnormal [facility] Performed by: [address] [address] CLIA ID: [id number] [facility] Interpretation and review of laboratory results Abnormal [facility] Performed by: [facility], [address] [place] [id number] CLIA ID: [id number] [facility] Progress Noteon 03-08-2025 Progress Note PHYSICAL THERAPY [facility] Treatment Note Name/MRN: Wallace Turk ([id number]) Date of : 1965 Age: 59 y.o. [...] Code Treatment Minutes: (GT) Laura Claudio PTA [facility] Progress Note ----- ----- Attestation signed by [...] No primary care provider on file. Outpt Conversion Developer: Yes Ellis Marquez ASSESSMENT: Type 2 diabetes [...] Humalog pens current dose Clara pen needles 84to5hh Dexcom g7 sensors Outpt Follow Up-- 05-27 [...] and nurs (more content not included)... Normal [facility] XR CHEST 1 VIEWon 03-08-2025 XR CHEST [...] Electronically Signed Date/Time: 03/08/2025 5:32 AM EDT [facility] XR Chest Single viewon 03-08 1. Postoperative sloan nges (CABG). 2. No pneumothorax after chest tube removal. Report Dictated on Electronically Signed By: Oswald Hamilton MD Electronically Signed Date/Time: 03/08/2025 5:32 AM EDT [facility] Patient Name: WALLACE TURK : [...] have been removed. There is no pneumothorax. [facility] Oswald Hamilton MD - 03/08/2025 [facility] Name[facility]K : 1965 [id number] Exam Date/Time: 03/08/2025 05:09 Procedure: XR CHEST [...] Electronically Signed Date/Time: 03/08/2025 5:32 AM EDT [facility] [employer] Radiology Study observation (narrative) [facility] XR Chest Single viewOrdered By: Oswald Hamilton on 03-08-2025 [facility] [employer] Work Phone: BASIC METABOLIC PANELon 02-12 Anion gap [Moles/Vol] 7 mmol/L Normal 3-13 [facility] Comment on above: Performed By: #### L AB103, LAB15 #### Mold Laminator: EDVIN HAYS ([id number]) [facility] [address] [place] [address] Calcium [Mass/Vol] 8.5 mg/dL Normal 8.4-10.2 [facility] Comment on above: Performed By: #### L AB103, LAB15 #### Mold Laminator: EDVIN HAYS ([id number]) [facility] [address] [place] [address] Chloride [Moles/Vol] 107 mmol/L Normal 98-107 [facility] Comment on above: Performed By: #### L AB103, LAB15 #### Mold Laminator: EDVIN HAYS ([id number]) [facility] ([facility]) [address] [place] [address] [place] CO2 [Moles/Vol] 26 mmol/L Normal 22-29 [facility] Comment on above: Performed By: #### L AB103, LAB15 #### Mold Laminator: EDVIN HAYS ([id number]) [facility]) [address] [place] [address] Creatinine [Mass/Vol] 0.71 mg/dL Low 0.72-1.25 [facility] Comment on above: Performed By: #### L AB103, LAB15 #### Mold Laminator: EDVIN HAYS ([id number]) [facility]) [address] [place] [address] GLOMERULAR FILTRATION RATE ML/MIN/1.73 SQ M.PREDICTED >90.0 Normal >60.0 [facility] Comment on above: Result Comment: Calc ulation based on the Chronic Kidney Disease Epidemiology Collaboration (CKD-EPI) equation refit without adjustment for race Performed By: #### L AB103, LAB15 #### Mold Laminator: EDVIN HAYS ([id number]) [facility]) [address] [place] [address] [place] Glucose [Mass/Vol] 154 mg/dL High 74-100 [facility] Comment on above: Performed By: #### L AB103, LAB15 #### Mold Laminator: EDVIN HAYS ([id number]) [facility]) [address] [place] [address] [place] Potassium [Moles/Vol] 3.6 mmol/L Normal 3.5-5.1 [facility] Comment on above: Result Comment: [facility] potassium values may be up to 0.5 mmol/L lower than serum values. Performed By: #### L AB103, LAB15 #### Mold Laminator: EDVIN HAYS ([id number]) [facility] ([facility]) [address] [place] [address] Sodium [Moles/Vol] 140 mmol/L Normal 136-145 [facility] Comment on above: Performed By: #### L AB103, LAB15 #### Mold Laminator: EDVIN HAYS ([id number]) [facility] ([facility] [address] [place] [address] Urea nitrogen [Mass/Vol] 20 mg/dL Normal 9-23 [facility] Comment on above: Performed By: #### L AB103, LAB15 #### Mold Laminator: EDVIN HAYS ([id number]) [facility] ([facility]) [address] [place] [address] Basic metabolic 1998 panelon 03-07-2025 Anion gap [Moles/Vol] 7 mmol/L 3 - 13 mmol/L [facility] Calcium [Mass/Vol] 8.5 mg/dL 8.4 - 10. 2 mg/dL [facility] Chloride [Moles/Vol] 107 mmol/L 98 - 10 7 mmol/L [facility] CO2 [Moles/Vol] 26 mmol/L 22 - 29 mmol/L [facility] Creatinine [Mass/Vol] 0.71 mg/dL Low 0.72 - 1.25 mg/dL [facility] GFR/1.73 sq M.predicted (S/P/Bld) [Vol rate/Area] - PINF [facility] Comment on above: Calculation based on the Chronic Kidney Disease Epidemiology Collaboration (CKD-EPI) equation refit without adjustment for race Glucose [Mass/Vol] 154 mg/dL High 74 - 100 mg/dL [facility] Interpretation and review of laboratory results Abnormal [facility] Potassium [Moles/Vol] 3.6 mmol/L 3.5 - 5.1 mmol/L [facility] Comment on above: Plasma potassium norma ues may be up to 0.5 mmol/L lower than serum values. Sodium [Moles/Vol] 140 mmol/L 136 - 145 mmol/L [facility] Urea nitrogen [Mass/Vol] 20 mg/dL 9 - 23 mg/dL [facility] CALCIUM, IONIZEDon CALCIUM IONIZED 4.30 mg/dL Normal 4.30-5.20 [facility] Comment on above: Order Comment: Obtai n PRN and check ionized Ca level if serum Ca level less than 8.0 Performed By: #### L AB54 ####Mold Laminator: EDVIN HAYS ([id number])[facility])[address] [place] [address] PH, IONIZED CALCIUM 7.43 Normal 7.31-7.46 [facility] Comment on above: Order Comment: Obtai n PRN and check ionized Ca level if serum Ca level less than 8.0 Performed By: #### L AB54 ####Mold Laminator: EDVIN HAYS ([id number])[facility] ([facility])[address] [place] [address] CBC (HEMOGRAM)on 03-07-2025 Erythrocyte distribution width (RBC) [Ratio] 13.5 % Normal 11.5-15.0 [facility] Comment on above: Performed By: #### L AB294 ####Mold Laminator: EDVIN HAYS ([id number])[facility])[address] [place] [address] Hematocrit (Bld) [Volume fraction] 31.5 % Low 40.0-52.0 [facility] Comment on above: Performed By: #### L AB294 ####Mold Laminator: EDVIN HAYS ([id number])[facility] ([facility])[address] [place] [address] Hemoglobin (Bld) [Mass/Vol] 10.3 g/dL Low 13.0-18.0 [facility] Comment on above: Performed By: #### L AB294 ####Mold Laminator: EDVIN HAYS ([id number])[facility] ([facility])[address] [place] [address] [place] IPF 4 Normal [facility] Comment on above: Performed By: #### L AB294 ####Mold Laminator: EDVIN HAYS ([id number])[facility])[address] [place] [address] MCH (RBC) [Entitic mass] 28.9 pg Normal 26.0-34.0 [facility] Comment on above: Performed By: #### L AB294 ####Mold Laminator: EDVIN HAYS ([id number])[facility] ([facility])[address] [place] [address] MCHC 32.7 % Normal 30.5-36.0 [facility] Comment on above: Performed By: #### L AB294 ####Mold Laminator: EDVIN HAYS ([id number])[facility] ([facility])[address] [place] [address] MCV (RBC) [Entitic vol] 88.2 fL Normal 77.0-99.0 [facility] Comment on above: Performed By: #### L AB294 ####Mold Laminator: EDVIN HAYS ([id number])[facility] ([facility])[address] [place] [address] Platelet mean volume (Bld) [Entitic vol] 11.4 fL Normal 9.0-12.7 [facility] Comment on above: Performed By: #### L AB294 ####Mold Laminator: EDVIN HAYS ([id number])[facility])[address] [place] [address] Platelets (Bld) [#/Vol] 130 10*3/uL Low 140-440 [facility] Comment on above: Performed By: #### L AB294 ####Mold Laminator: EDVIN HAYS ([id number])[facility])[address] [place] [address] RBC (Bld) [#/Vol] 3.57 10*6/uL Low 4.40-5.90 [facility] Comment on above: Performed By: #### L AB294 ####Mold Laminator: EDVIN HAYS ([id number])[facility] ([facility])[address] [place] [address] WBC (Bld) [#/Vol] 5.5 10*3/uL Normal 3.6-10.7 [facility] Comment on above: Performed By: #### L AB294 ####Mold Laminator: EDVIN HAYS ([id number])[facility] ([facility])[address] [place] [address] CBC panel Auto (Bld)on 03-07 Erythrocyte distribution width (RBC) [Ratio] 13.5 % 11.5 - 15.0 % [facility] Hematocrit (Bld) [Volume fraction] 31.5 % Low 40.0 - 52.0 % [facility] Hemoglobin (Bld) [Mass/Vol] 10.3 g/dL Low 13.0 - 18.0 g/dL [facility] Interpretation and review of laboratory results Abnormal [facility] IPF 4 [facility] MCH (RBC) [Entitic mass] 28.9 pg 26. 0 - 34.0 pg [facility] MCHC (RBC) [Mass/Vol] 32.7 % 30.5 - 36.0 % [facility] MCV (RBC) [Entitic vol] 88.2 fL 77.0 - 99.0 fL [facility] Platelet mean volume (Bld) [Entitic vol] 11.4 fL 9.0 - 12.7 fL [facility] Platelets (Bld) [#/Vol] 130 10*3/uL Low 140 - 440 10*3/uL [facility] RBC (Bld) [#/Vol] 3.57 10*6/uL Low 4.40 - 5.90 10*6/uL [facility] WBC (Bld) [#/Vol] 5.5 10*3/uL 3.6 - 10.7 10*3/uL [facility] Calcium.ionized [Moles/Vol]o n 03-07-2025 Calcium.ionized (Bld) [Moles/Vol] 4.3 mg/dL 4.30 - 5.20 mg/dL [facility] Interpretation and review of laboratory results Normal [facility] PH, IONIZED CALCIUM 7.43 7.31 - 7.46 [facility] - Chemistry and C hemistry - challengeon 03-07-2025 Glucose [Mass/Vol] 228 mg/dL High 70 - 100 mg/dL [facility] Glucose [Mass/Vol] 129 mg/dL High 70 - 100 mg/dL [facility] Glucose [Mass/Vol] 260 mg/dL High 70 - 100 mg/dL [facility] Glucose [Mass/Vol] 178 mg/dL High 70 - 100 mg/dL [facility] Magnesium [Mass/Vol] 1.9 mg/dL 1.6 - 2 .6 mg/dL [facility] MAGNESIUMon 03-07-2025 Magnesium [Mass/Vol] 1.9 mg/dL Normal 1.6-2.6 [facility] Comment on above: Result Comment: GEORGE Hernadez COMMENTS: Higher values can be expected in females during menses. Performed By: #### L AB103, LAB15 #### Mold Laminator: EDVIN HAYS ([id number]) [facility] ([facility]) [address] [place] [address] Magnesium [Mass/Vol]on 03-07 Interpretation and review of laboratory results Normal [facility] Higher values can be expected in females during menses. [facility] No Panel Informationon 03-07 Interpretation and review of laboratory results Abnormal [facility] Performed by: [place] [address] CLIA ID: [id number] [facility] Interpretation and review of laboratory results Abnormal [facility] Performed by: [place] [address] CLIA ID: [id number] [facility] Interpretation and review of laboratory results Abnormal [facility] Performed by: [place] [address] CLIA ID: [id number] [facility] Interpretation and review of laboratory results Abnormal [facility] Performed by: [place] [address] CLIA ID: [id number] [facility] Progress Noteon 03-07-2025 Progress Note Chest tubes assessed : no air leak, subcutaneous air noted. Chest tubes removed without difficulty and dressing applied. Patient tolerated well. Patient and nurse educated on possible complications to observe for. Will continue to monitor. Normal [facility] Progress Note PHYSICAL THERAPY [facility] Treatment Note Name/MRN: Wallace Turk ([id number]) Date of : 1965 Age: 59 y.o. [...] 1-9 x 6-8 reps each Comments: I.S. [id number] mL Plan Continue acute PT per plan [...] Treatment Minutes: (GT, TP) Laura Claudio PTA [facility] Progress Note ----- ----- Attestation signed by [...] Diabetes, & Metabolism Endocrinology Note Patient Name: aWllace Turk : 1965 AGE: 59 y.o. Room/Bed: T1-123/T1-123 A Admission Date: 03/04/2025 Visit Date: 03/07/2025 Reason for Endocrine Consult: post heart Provider/Team Requesting Consult: cts PCP: No primary care provider on file. Outpt Conversion Developer: Yes Ellis Marquez ASSESSMENT: Type 2 diabetes [...] Humalog pens current dose Clara pen needles [id number] Dexcom sensors Outpt Follow Up-- 05-27 Richard [...] He is (more content not included)... Normal [employer] [facility] Progress Note Discussed with Dr. Lane pull wires Patient placed in bed Epicardial pacing wire pulled without difficulty per protocol. Patient and nurse educated on possible complications. Patient tolerated well. Will continue to monitor. Normal [employer] [facility] US Heart Transesophagealon 0 03-07-2025 Left Ventricle: [...] TransesophagealOrde red By: Humble Espinoza on 03-07-2025 [facility] Work Phone: XR CHEST 1 VIEWon 03-07-2025 [...] Signed Date/Time: 03/07/2025 7:20 AM EDT Normal [facility] XR Chest Single viewon 03-07 Impression: As above. Report Dictated on Electronically Signed By: Bird Wall MD Electronically Signed Date/Time: 03/07/2025 7:20 AM EDT [facility] [employer] Patient Name: WALLACE TURK : 1965 Exam Date/Time: 03/07/2025 05:32 Procedure: XR CHEST 1 VIEW Ordering Provider: ROMERO ANDREW Reason For Exam: Shortness of breath Examination: Portable chest Indication: Shortness of breath Comparison: Previous day Findings: Cardiomegaly with median sternotomy changes. Mild left basilar infiltrate or atelectasis with left basilar chest tube. Right IJ sheath is in place. [facility] [employer] Bird Wall MD - 03/07/2025 Patient [...] Electronically Signed Date/Time: 03/07/2025 7:20 AM EDT [facility] Radiology Study observation (narrative) [facility] XR Chest Single viewOrdered By: Bird Wall on 03-07-2025 [facility] Work Phone: BASIC METABOLIC PANELon 02-12 Anion gap [Moles/Vol] 7 mmol/L Normal 3-13 [facility] Comment on above: Performed By: #### L AB103, LAB15 ####Mold Laminator: EDVIN HAYS ([id number])[facility])[address] [place] [address] Calcium [Mass/Vol] 8.4 mg/dL Normal 8.4-10.2 [facility] Comment on above: Performed By: #### L AB103, LAB15 ####Mold Laminator: EDVIN HAYS ([id number])[facility] ([facility])[address] [place] [address] [place] Chloride [Moles/Vol] 108 mmol/L High 98-107 [facility] Comment on above: Performed By: #### L AB103, LAB15 ####Mold Laminator: EDVIN HAYS ([id number])[facility] ([facility])[address] [place] [address] [place] CO2 [Moles/Vol] 24 mmol/L Normal 22-29 [facility] Comment on above: Performed By: #### L AB103, LAB15 ####Mold Laminator: EDVIN HAYS ([id number])[facility] ([facility])[address] [place] [address] [place] Creatinine [Mass/Vol] 0.76 mg/dL Normal 0.72-1.25 [facility] Comment on above: Performed By: #### L AB103, LAB15 ####Mold Laminator: EDVIN HAYS ([id number])[facility])[address] [place] [address] GLOMERULAR FILTRATION RATE ML/MIN/1.73 SQ M.PREDICTED >90.0 Normal >60.0 [facility] Comment on above: Result Comment: Calc ulation based on the Chronic Kidney Disease Epidemiology Collaboration (CKD-EPI) equation refit without adjustment for race Performed By: #### L AB103, LAB15 ####Mold Laminator: EDVIN HAYS ([id number])[facility])[address] [place] [address] Glucose [Mass/Vol] 173 mg/dL High 74-100 [facility] Comment on above: Performed By: #### L AB103, LAB15 ####Mold Laminator: EDVIN HAYS ([id number])[facility])[address] [place] [address] Potassium [Moles/Vol] 3.9 mmol/L Normal 3.5-5.1 [facility] Comment on above: Result Comment: [facility] potassium values may be up to 0.5 mmol/L lower than serum values. Performed By: #### L AB103, LAB15 ####Mold Laminator: EDVIN HAYS ([id number])[facility] ([facility])[address] [place] [address] [place] Sodium [Moles/Vol] 139 mmol/L Normal 136-145 [facility] Comment on above: Performed By: #### L AB103, LAB15 ####Mold Laminator: EDVIN HAYS ([id number])[facility])[address] [place] [address] [place] Urea nitrogen [Mass/Vol] 20 mg/dL Normal 9-23 [facility] Comment on above: Performed By: #### L AB103, LAB15 ####Mold Laminator: EDVIN [id number])[facility])[address] [place] [address] Basic metabolic 1998 panelon 03-06-2025 Anion gap [Moles/Vol] 7 mmol/L 3 - 13 mmol/L [facility] Calcium [Mass/Vol] 8.4 mg/dL 8.4 - 10. 2 mg/dL [facility] Chloride [Moles/Vol] 108 mmol/L High 98 - 10 7 mmol/L [facility] CO2 [Moles/Vol] 24 mmol/L 22 - 29 mmol/L [facility] Creatinine [Mass/Vol] 0.76 mg/dL 0.72 - 1.25 mg/dL [facility] GFR/1.73 sq M.predicted (S/P/Bld) [Vol rate/Area] - PINF [facility] Comment on above: Calculation based on the Chronic Kidney Disease Epidemiology Collaboration (CKD-EPI) equation refit without adjustment for race Glucose [Mass/Vol] 173 mg/dL High 74 - 100 mg/dL [facility] Interpretation and review of laboratory results Abnormal [facility] Potassium [Moles/Vol] 3.9 mmol/L 3.5 - 5.1 mmol/L [facility] Comment on above: Plasma potassium norma ues may be up to 0.5 mmol/L lower than serum values. Sodium [Moles/Vol] 139 mmol/L 136 - 145 mmol/L [facility] Urea nitrogen [Mass/Vol] 20 mg/dL 9 - 23 mg/dL [facility] CBC (HEMOGRAM)on 03-06-2025 Erythrocyte distribution width (RBC) [Ratio] 13.7 % Normal 11.5-15.0 [facility] Comment on above: Performed By: #### L AB103, LAB15 #### Mold Laminator: EDVIN HAYS ([id number]) [facility] [address] [place] [address] Hematocrit (Bld) [Volume fraction] 31.5 % Low 40.0-52.0 [facility] Comment on above: Performed By: #### L AB103, LAB15 #### Mold Laminator: EDVIN HAYS ([id number]) [facility]) [address] [place] [address] Hemoglobin (Bld) [Mass/Vol] 10.2 g/dL Low 13.0-18.0 [facility] Comment on above: Performed By: #### L AB103, LAB15 #### Mold Laminator: EDVIN HAYS ([id number]) [facility]) [address] [place] [address] IPF 4 Normal [facility] Comment on above: Performed By: #### L AB103, LAB15 #### Mold Laminator: EDVIN HAYS ([id number]) [facility] ([facility]) [address] [place] [address] MCH (RBC) [Entitic mass] 28.8 pg Normal 26.0-34.0 [facility] Comment on above: Performed By: #### L AB103, LAB15 #### Mold Laminator: EDVIN HAYS ([id number]) [facility]) [address] [place] [address] MCHC 32.4 % Normal 30.5-36.0 [facility] Comment on above: Performed By: #### L AB103, LAB15 #### Mold Laminator: EDVIN HAYS ([id number]) [facility] ([facility]) [address] [place] [address] MCV (RBC) [Entitic vol] 89.0 fL Normal 77.0-99.0 [facility] Comment on above: Performed By: #### L AB103, LAB15 #### Mold Laminator: EDVIN HAYS ([id number]) [facility] ([facility]) [address] [place] [address] Platelet mean volume (Bld) [Entitic vol] 11.3 fL Normal 9.0-12.7 [facility] Comment on above: Performed By: #### L AB103, LAB15 #### Mold Laminator: EDVIN HAYS ([id number]) [facility]) [address] [place] [address] Platelets (Bld) [#/Vol] 115 10*3/uL Low 140-440 [facility] Comment on above: Performed By: #### L AB103, LAB15 #### Mold Laminator: EDVIN [id number]) [facility] ([facility]) [address] [place] [address] RBC (Bld) [#/Vol] 3.54 10*6/uL Low 4.40-5.90 [facility] Comment on above: Performed By: #### L AB103, LAB15 #### Mold Laminator: EDVIN HAYS ([id number]) [facility]) [address] [place] [address] WBC (Bld) [#/Vol] 6.2 10*3/uL Normal 3.6-10.7 [facility] Comment on above: Performed By: #### L AB103, LAB15 #### Mold Laminator: EDVIN HAYS ([id number]) [facility]) [address] [place] [address] CBC panel Auto (Bld)on 03-06 Erythrocyte distribution width (RBC) [Ratio] 13.7 % 11.5 - 15.0 % [facility] Hematocrit (Bld) [Volume fraction] 31.5 % Low 40.0 - 52.0 % [facility] Hemoglobin (Bld) [Mass/Vol] 10.2 g/dL Low 13.0 - 18.0 g/dL [facility] Interpretation and review of laboratory results Abnormal [facility] IPF 4 [facility] MCH (RBC) [Entitic mass] 28.8 pg 26. 0 - 34.0 pg [facility] MCHC (RBC) [Mass/Vol] 32.4 % 30.5 - 36.0 % [facility] MCV (RBC) [Entitic vol] 89 fL 77.0 - 99.0 fL [facility] Platelet mean volume (Bld) [Entitic vol] 11.3 fL 9.0 - 12.7 fL [facility] Platelets (Bld) [#/Vol] 115 10*3/uL Low 140 - 440 10*3/uL [facility] RBC (Bld) [#/Vol] 3.54 10*6/uL Low 4.40 - 5.90 10*6/uL [facility] WBC (Bld) [#/Vol] 6.2 10*3/uL 3.6 - 10.7 10*3/uL [facility] ECG 12-LEADon 03-06-2025 ECG 12-LEAD IMPRESSION: Sinus rhythm Borderline T wave abnormalities Electronically Signed On 03-06-2025 08:54:40 EDT by Alfred Lara [facility] Laboratory - Chemistry and C hemistry - challengeon 03-06-2025 Glucose [Mass/Vol] 199 mg/dL High 70 - 100 mg/dL [facility] Glucose [Mass/Vol] 230 mg/dL High 70 - 100 mg/dL [facility] Glucose [Mass/Vol] 208 mg/dL High 70 - 100 mg/dL [facility] Glucose [Mass/Vol] 150 mg/dL High 70 - 100 mg/dL [facility] Magnesium [Mass/Vol] 2.1 mg/dL 1.6 - 2 .6 mg/dL [facility] MAGNESIUMon 03-06-2025 Magnesium [Mass/Vol] 2.1 mg/dL Normal 1.6-2.6 [facility] Comment on above: Result Comment: GEORGE Hernadez COMMENTS: Higher values can be expected in females during menses. Performed By: #### L AB103, LAB15 ####Mold Laminator: EDVIN HAYS ([id number])[facility] ([address] Magnesium [Mass/Vol]on 03-06 Interpretation and review of laboratory results Normal [facility] Higher values can be expected in females during menses. [facility] [employer] No Panel Informationon 03-06 Interpretation and review of laboratory results Abnormal [facility] Performed by: [address] [address] CLIA ID: [id number] [facility] Interpretation and review of laboratory results Abnormal [facility] Performed by: [address] [address] CLIA ID: [id number] [facility] Interpretation and review of laboratory results Abnormal [facility] Performed by: [address] [address] CLIA ID: [id number] [facility] P [place] 41 degrees [facility] OR Interval 158 ms [facility] [employer] QRS [place] -8 degrees [facility] QRSD Interval 110 ms [facility] QT Interval 387 ms [facility] [employer] QTC Interval 446 ms [facility] [employer] T Wave [place] 50 degrees [facility] [employer] Sinus rhythm Borderline T wave abnormalities Electronically Signed On 03-06-2025 08:54:40 EDT by Alfred Connelly MD - 03/06/2025 IMPRESSION: Sinus rhythm Borderline T wave abnormalities Electronically Signed On 03-06-2025 08:54:40 EDT by Alfred Wallace [facility] Interpretation and review of laboratory results Abnormal [facility] [employer] Performed by: [facility], [address] [place] [address], [place] [address] CLIA ID: [id number] [facility] [employer] [facility] [employer] Progress Noteon 03-06-2025 Progress Note ----- ----- Attestation signed by Kobi Guerrero MD at 03/06/2025 1:35 PM I have personally performed a face to face diagnostic evaluation on this patient today on 03/06/25. Labs, imaging studies, and electronic medical record notes on [employer] have been reviewed by me. This note documented and discussed by the []aboriginal home school liaison officer []Fellow [x] NOELLE reflects my history, [...] I) Chief Complaint: Coronary artery disease of [place] artery of [place] heart with stable angina pectoris Additional pertinent [...] DVT prophy: (more content not included)... Normal [facility] Progress Note Department of [employer]ht[employer] Operator al Medicine Division of Endocrinology, Diabetes, & Metabolism Endocrinology Note Patient Name: Wallace Turk : 1965 AGE: 59 y.o. Room/Bed: T1-123/T1-123 A Admission Date: 03/04/2025 Visit Date: 03/06/2025 Reason for Endocrine Consult: post heart Provider/Team Requesting Consult: cts PCP: No primary care provider on file. Outpt Conversion Developer: Yes Ellis Marquez ASSESSMENT: Type 2 diabetes [...] Humalog pens current dose Clara pen needles [id number] Dexcom sensors Outpt Follow Up-- 05-27 Richard [...] Does n (more content not included)... Normal [facility] Vital signson 03-06-2025 Heart rate 80 /min bpm [facility] XR CHEST 1 VIEWon 03-06-2025 XR [...] Electronically Signed Date/Time: 03/06/2025 12:27 PM EDT [facility] Patient Name: WALLACE TURK : [...] No other consolidation. Costophrenic angles are sharp. [facility] Oswald Benson MD - 03/06/2025 Patient Name: [...] Electronically Signed Date/Time: 03/06/2025 12:27 PM EDT [facility] Radiology Study observation (narrative) [facility] [employer] XR Chest Single viewOrdered By: Oswald Benson on 03-06-2025 [employer] Work Phone: BASIC METABOLIC PANELon 02-12 Anion gap [Moles/Vol] 6 mmol/L Normal 3-13 [facility] Comment on above: Performed By: #### L AB103, LAB15 ####Mold Laminator: EDVIN HAYS ([id number])[facility] ([facility])[address] [place] [address] Calcium [Mass/Vol] 8.2 mg/dL Low 8.4-10.2 [facility] Comment on above: Performed By: #### L AB103, LAB15 ####Mold Laminator: EDIVN HAYS ([id number])[facility])[address] [place] [address] Chloride [Moles/Vol] 110 mmol/L High 98-107 [facility] Comment on above: Performed By: #### L AB103, LAB15 ####Mold Laminator: EDVIN HAYS ([id number])[facility])[address] [place] [address] CO2 [Moles/Vol] 21 mmol/L Low 22-29 [facility] Comment on above: Performed By: #### L AB103, LAB15 ####Mold Laminator: EDVIN HAYS ([id number])[facility] ([facility])[address] [place] [address] Creatinine [Mass/Vol] 0.71 mg/dL Low 0.72-1.25 [facility] Comment on above: Performed By: #### L AB103, LAB15 ####Mold Laminator: EDVIN HAYS ([id number])[facility])[address] [place] [address] GLOMERULAR FILTRATION RATE ML/MIN/1.73 SQ M.PREDICTED >90.0 Normal >60.0 [facility] Comment on above: Result Comment: Calc ulation based on the Chronic Kidney Disease Epidemiology Collaboration (CKD-EPI) equation refit without adjustment for race Performed By: #### L AB103, LAB15 ####Mold Laminator: EDVIN HAYS ([id number])[facility])[address] [place] [address] [place] Glucose [Mass/Vol] 112 mg/dL High 74-100 [facility] Comment on above: Performed By: #### L AB103, LAB15 ####Mold Laminator: EDVIN HAYS ([id number])[facility])[address] [place] [address] Potassium [Moles/Vol] 3.9 mmol/L Normal 3.5-5.1 [facility] Comment on above: Result Comment: [facility] potassium values may be up to 0.5 mmol/L lower than serum values. Performed By: #### L AB103, LAB15 ####Mold Laminator: EDVIN HAYS ([id number])[facility])[address] [place] [address] Sodium [Moles/Vol] 137 mmol/L Normal 136-145 [facility] Comment on above: Performed By: #### L AB103, LAB15 ####Mold Laminator: EDVIN HAYS ([id number])[facility])[address] [place] [address] Urea nitrogen [Mass/Vol] 12 mg/dL Normal 9-23 [facility] Comment on above: Performed By: #### L AB103, LAB15 ####Mold Laminator: EDVIN HAYS ([id number])[facility])[address] [place] [address] Basic metabolic 1998 panelon 03-05-2025 Anion gap [Moles/Vol] 6 mmol/L 3 - 13 mmol/L [facility] Calcium [Mass/Vol] 8.2 mg/dL Low 8.4 - 10. 2 mg/dL [facility] Chloride [Moles/Vol] 110 mmol/L High 98 - 10 7 mmol/L [facility] CO2 [Moles/Vol] 21 mmol/L Low 22 - 29 mmol/L [facility] Creatinine [Mass/Vol] 0.71 mg/dL Low 0.72 - 1.25 mg/dL [facility] GFR/1.73 sq M.predicted (S/P/Bld) [Vol rate/Area] - PINF [facility] Comment on above: Calculation based on the Chronic Kidney Disease Epidemiology Collaboration (CKD-EPI) equation refit without adjustment for race Glucose [Mass/Vol] 112 mg/dL High 74 - 100 mg/dL [facility] Interpretation and review of laboratory results Abnormal [facility] Potassium [Moles/Vol] 3.9 mmol/L 3.5 - 5.1 mmol/L [facility] Comment on above: Plasma potassium norma ues may be up to 0.5 mmol/L lower than serum values. Sodium [Moles/Vol] 137 mmol/L 136 - 145 mmol/L [facility] Urea nitrogen [Mass/Vol] 12 mg/dL 9 - 23 mg/dL [facility] CBC (HEMOGRAM)on 03-05-2025 Erythrocyte distribution width (RBC) [Ratio] 13.4 % Normal 11.5-15.0 [facility] Comment on above: Performed By: #### L AB294 ####Mold Laminator: EDVIN HAYS ([id number])[address] Hematocrit (Bld) [Volume fraction] 31.1 % Low 40.0-52.0 [facility] Comment on above: Performed By: #### L AB294 ####Mold Laminator: EDVIN HAYS ([id number])[address] Hemoglobin (Bld) [Mass/Vol] 10.4 g/dL Low 13.0-18.0 [facility] Comment on above: Performed By: #### L AB294 ####Mold Laminator: EDVIN HAYS ([id number])[place] [address] [place] IPF 4 Normal [facility] Comment on above: Performed By: #### L AB294 ####Mold Laminator: EDVIN [id number])[address] MCH (RBC) [Entitic mass] 28.9 pg Normal 26.0-34.0 [facility] Comment on above: Performed By: #### L AB294 ####Mold Laminator: EDVIN [id number])[facility] ([facility])[address] [place] [address] MCHC 33.4 % Normal 30.5-36.0 [facility] Comment on above: Performed By: #### L AB294 ####Mold Laminator: EDVIN HAYS ([id number])[facility] ([facility])[address] [place] [address] MCV (RBC) [Entitic vol] 86.4 fL Normal 77.0-99.0 S [facility] Comment on above: Performed By: #### L AB294 ####Mold Laminator: EDVIN HAYS ([id number])[facility])[address] [place] [address] Platelet mean volume (Bld) [Entitic vol] 10.9 fL Normal 9.0-12.7 [facility] Comment on above: Performed By: #### L AB294 ####Mold Laminator: EDVIN HAYS ([id number])[facility])[address] [place] [address] Platelets (Bld) [#/Vol] 119 10*3/uL Low 140-440 [facility] Comment on above: Performed By: #### L AB294 ####Mold Laminator: EDVIN AHYS ([id number])[facility])[address] [place] [address] RBC (Bld) [#/Vol] 3.60 10*6/uL Low 4.40-5.90 [facility] Comment on above: Performed By: #### L AB294 ####Mold Laminator: EDVIN HAYS ([id number])[facility] ([facility])[address] [place] [address] WBC (Bld) [#/Vol] 5.8 10*3/uL Normal 3.6-10.7 [facility] Comment on above: Performed By: #### L AB294 ####Mold Laminator: EDVIN HAYS ([id number])[facility])[address] [place] [address] CBC panel Auto (Bld)on 03-05 Erythrocyte distribution width (RBC) [Ratio] 13.4 % 11.5 - 15.0 % [facility] Hematocrit (Bld) [Volume fraction] 31.1 % Low 40.0 - 52.0 % [facility] Hemoglobin (Bld) [Mass/Vol] 10.4 g/dL Low 13.0 - 18.0 g/dL [facility] Interpretation and review of laboratory results Abnormal [facility] IPF 4 [facility] MCH (RBC) [Entitic mass] 28.9 pg 26. 0 - 34.0 pg [facility] MCHC (RBC) [Mass/Vol] 33.4 % 30.5 - 36.0 % [facility] MCV (RBC) [Entitic vol] 86.4 fL 77.0 - 99.0 fL [facility] Platelet mean volume (Bld) [Entitic vol] 10.9 fL 9.0 - 12.7 fL [facility] Platelets (Bld) [#/Vol] 119 10*3/uL Low 140 - 440 10*3/uL [facility] RBC (Bld) [#/Vol] 3.6 10*6/uL Low 4.40 - 5.90 10*6/uL [facility] WBC (Bld) [#/Vol] 5.8 10*3/uL 3.6 - 10.7 10*3/uL [facility] ECG 12-LEADon 03-05-2025 ECG 12-LEAD IMPRESSION: Sinus rhythm Borderline prolonged QT interval Electronically Signed On 03-05-2025 08:39:15 EDT by Alfred Wallace Normal [facility] ECG 12-LEAD IMPRESSION: Sinus rhythm Nonspecific T wave changes Electronically Signed On 03-05-2025 08:28:02 EDT by Alfred Wallace Normal [facility] Laboratory - Chemistry and C hemistry - challengeon 03-05-2025 Glucose [Mass/Vol] 197 mg/dL High 70 - 100 mg/dL [facility] Glucose [Mass/Vol] 215 mg/dL High 70 - 100 mg/dL [facility] Glucose [Mass/Vol] 152 mg/dL High 70 - 100 mg/dL [facility] Glucose [Mass/Vol] 199 mg/dL High 70 - 100 mg/dL [facility] Glucose [Mass/Vol] 161 mg/dL High 70 - 100 mg/dL [facility] Glucose [Mass/Vol] 146 mg/dL High 70 - 100 mg/dL [facility] Glucose [Mass/Vol] 139 mg/dL High 70 - 100 mg/dL [facility] Glucose [Mass/Vol] 130 mg/dL High 70 - 100 mg/dL [facility] Glucose [Mass/Vol] 124 mg/dL High 70 - 100 mg/dL [facility] Glucose [Mass/Vol] 116 mg/dL High 70 - 100 mg/dL [facility] [employer] Glucose [Mass/Vol] 136 mg/dL High 70 - 100 mg/dL [facility] [employer] Glucose [Mass/Vol] 111 mg/dL High 70 - 100 mg/dL [facility] [employer] Glucose [Mass/Vol] 123 mg/dL High 70 - 100 mg/dL [facility] Magnesium [Mass/Vol] 1.8 mg/dL 1.6 - 2 .6 mg/dL [facility] Glucose [Mass/Vol] 117 mg/dL High 70 - 100 mg/dL [facility] Laboratory - Coagulationon 0 03-05-2025 aPTT Coag (PPP) [Time] 30.3 s 20.0 - 30.5 s [facility] INR Coag (PPP) [Relative time] 1.1 {INR} 0.9 - 1.1 [facility] Comment on above: Recommended Anticoag ulant [...] 11.9 s 9.0 - 1 2.0 s [facility] MAGNESIUMon 03-05-2025 Magnesium [Mass/Vol] 1.8 mg/dL Normal 1.6-2.6 [facility] Comment on above: Result Comment: GEORGE Hernadez COMMENTS: Higher values can be expected in females during menses. Performed By: #### L AB103, LAB15 ####Mold Laminator: EDVIN HAYS ([id number])[facility] ([facility])[address] [place] [address] [place] Magnesium [Mass/Vol]on 03-05 Interpretation and review of laboratory results Normal [facility] Higher values can be expected in females during menses. [facility] [employer] No Panel Informationon 03-05 Interpretation and review of laboratory results Abnormal [facility] Performed by: [facility], [address] [place] [address] CLIA ID: [id number] [facility] [employer] Interpretation and review of laboratory results Abnormal [facility] Performed by: [facility], [address] [place] [address] CLIA ID: [id number] [facility] Interpretation and review of laboratory results Abnormal [facility] Performed by: [facility], [address] [place] [address] CLIA ID: [id number] [facility] Interpretation and review of laboratory results Abnormal [facility] Performed by: [address] [address] CLIA ID: [id number] [facility] Interpretation and review of laboratory results Abnormal [facility] Performed by: [facility], [address] [place] [address] CLIA ID: [id number] [facility] Sinus rhythm Borderline prolonged QT interval Electronically Signed On 03-05-2025 08:39:15 EDT by Alfred Connelly MD - 03/05/2025 IMPRESSION: Sinus rhythm Borderline prolonged QT interval Electronically Signed On 03-05-2025 08:39:15 EDT by Alfred Wallace [facility] P [place] 41 degrees [facility] OR Interval 168 ms [facility] QRS [place] 10 degrees [facility] QRSD Interval 103 ms [facility] QT Interval 375 ms [facility] QTC Interval 451 ms [facility] T Wave [place] 48 degrees [facility] Sinus rhythm Nonspecific T wave changes Electronically Signed On 03-05-2025 08:28:02 EDT by Alfred Connelly MD - 03/05/2025 IMPRESSION: Sinus rhythm Nonspecific T wave changes Electronically Signed On 03-05-2025 08:28:02 EDT by Alfred Wallace [facility] Interpretation and review of laboratory results Abnormal [facility] Performed by: [facility], [address] [place] [address], [place] [address] CLIA ID: [id number] [facility] Interpretation and review of laboratory results Abnormal [facility] Performed by: [facility], [address] [place] [address], [place] [address] CLIA ID: [id number] [facility] Interpretation and review of laboratory results Abnormal [facility] Performed by: [facility], [address] [place] [address], [place] [address] CLIA ID: [id number] [facility] Interpretation and review of laboratory results Abnormal [facility] Performed by: [facility], [address] [place] [address], [place] [address] CLIA ID: [id number] [facility] Interpretation and review of laboratory results Abnormal [facility] Performed by: [facility], [address] [place] [address], [place] [address] CLIA ID: [id number] [facility] Interpretation and review of laboratory results Abnormal [facility] Performed by: [address], [place] [address] CLIA ID: [id number] [facility] Interpretation and review of laboratory results Abnormal [facility] Performed by: [address], [place] [address] CLIA ID: [id number] [facility] Interpretation and review of laboratory results Abnormal [facility] Performed by: [facility], [address] [place] [address], [place] [address] CLIA ID: [id number] [facility] Interpretation and review of laboratory results Normal [facility] Interpretation and review of laboratory results Abnormal [facility] Performed by: [address], [place] [address] CLIA ID: [id number] [facility] No Panel InformationOrdered By: Alfred Wallace on 03-05-2025 P [place] 76 degrees [facility] Work Phone: OR Interval 197 ms [facility] Work Phone: QRS [place] 80 degrees [facility] [employer] Work Phone: QRSD Interval 113 ms [facility] [employer] Work Phone: QT Interval 476 ms [facility] [employer] Work Phone: [phone] QTC Interval 495 ms [facility] [employer] Work Phone: T Wave [place] 38 degrees [facility] [employer] Work Phone: [facility] [employer] Work Phone: PROTIME AND APTTon aPTT Coag (Bld) [Time] 30.3 s Normal 20.0-30.5 [facility] Comment on above: Performed By: #### L CANDY, LAB15 #### Mold Laminator: EDVIN HAYS ([id number]) [facility]) [address] [place] [address] INR Coag (PPP) [Relative time] 1.1 {INR} Normal 0.9-1.1 [facility] Comment on above: Result Comment: Danny mmended [...] Performed By: #### Vicente GUPTA, LAB15 #### Mold Laminator: EDVIN HAYS ([id number]) [facility]) [address] [place] [address] PT Coag (PPP) [Time] 11.9 s Normal 9.0-12.0 [facility] Comment on above: Performed By: #### L 103, LAB15 #### Mold Laminator: EDVIN HAYS ([id number]) [facility]) [address] [place] [address] Progress Noteon 03-05-2025 Progress Note Department of Dishtank Operator al Medicine Division of Endocrinology, Diabetes, & Metabolism Endocrinology Note Patient Name: Wallace Turk : 1965 AGE: 59 y.o. Room/Bed: T1-123/T1-123 A Admission Date: 03/04/2025 Visit Date: 03/05/2025 Reason for Endocrine Consult: post heart Provider/Team Requesting Consult: cts PCP: No primary care provider on file. Outpt Conversion Developer: Yes Ellis Marquez ASSESSMENT: Type 2 diabetes [...] Humalog pens current dose Clara pen needles [id number] Dexcom sensors Outpt Follow Up-- 05-27 Richard [...] failure metop (more content not included)... Normal [facility] Progress Note ----- ----- Attestation signed by Kobi Guerrero MD at 03/05/2025 12:07 PM I have personally performed a face to face diagnostic evaluation on this patient today on 03/05/25. Labs, imaging studies, and electronic medical record notes on [employer] have been reviewed by me. 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 Normal [facility] Vital signsOrdered By: Nehemias Wallace on 03-05-2025 Heart rate 65 /min bpm [employer] Work Phone: Vital signson 03-05-2025 Heart rate 87 /min bpm [employer] XR CHEST 1 VIEWon 03-05-2025 XR CHEST 1 VIEW Patient Name: [facility]ALLACE [facility]URK : 1965 [id number] Exam Date/Time: 03/05/2025 05:16 Procedure: XR CHEST [...] Signed Date/Time: 03/05/2025 9:38 AM EDT Normal [facility] [employer] XR Chest Single viewon 03-05 1. The patient has b een extubated and the enteric tube has been removed. 2. The exam was obtained at low inspiratory volumes resulting in crowding of the pulmonary interstitial markings. Otherwise no new opacification or consolidation. Report Dictated on Electronically Signed By: Dandre Pavon MD Electronically Signed Date/Time: 03/05/2025 9:38 AM EDT [facility] Patient Name: WALLACE TURK : [...] changes of the thoracic spine are noted. [facility] Dandre Pavon MD - 03/05/2025 Patient Name: [...] Electronically Signed Date/Time: 03/05/2025 9:38 AM EDT [facility] Radiology Study observation (narrative) [facility] XR Chest Single viewOrdered By: Dandre Pavon on 03-05-2025 [facility] [employer] Work Phone: BASIC METABOLIC PANELon 02-12 Anion gap [Moles/Vol] 9 mmol/L Normal 3-13 [facility] Comment on above: Performed By: #### L AB15, [id number] ####Mold Laminator: EDVIN HAYS ([id number])[facility])[address] [place] [address] Calcium [Mass/Vol] 8.1 mg/dL Low 8.4-10.2 [facility] Comment on above: Performed By: #### L AB15, [id number] ####Mold Laminator: EDVIN HAYS ([id number])[facility])[address] [place] [address] Chloride [Moles/Vol] 110 mmol/L High 98-107 [facility] Comment on above: Performed By: #### L AB15, [id number] ####Mold Laminator: EDVIN HAYS ([id number])[facility])[address] [place] [address] CO2 [Moles/Vol] 19 mmol/L Low 22-29 [facility] Comment on above: Performed By: #### L AB15, [id number] ####Mold Laminator: EDVIN [id number])[facility])[address] [place] [address] Creatinine [Mass/Vol] 0.67 mg/dL Low 0.72-1.25 [facility] Comment on above: Performed By: #### L AB15, [id number] ####Mold Laminator: EDVIN [id number])[facility])[address] [place] [address] GLOMERULAR FILTRATION RATE ML/MIN/1.73 SQ M.PREDICTED >90.0 Normal >60.0 [facility] Comment on above: Result Comment: Calc ulation based on the Chronic Kidney Disease Epidemiology Collaboration (CKD-EPI) equation refit without adjustment for race Performed By: #### L AB15, [id number] ####Mold Laminator: EDVIN HAYS ([id number])[facility])[address] [place] [address] Glucose [Mass/Vol] 164 mg/dL High 74-100 [facility] Comment on above: Performed By: #### L AB15, [id number] ####Mold Laminator: EDVIN HAYS ([id number])[facility])[address] [place] [address] Potassium [Moles/Vol] 4.0 mmol/L Normal 3.5-5.1 [facility] Comment on above: Result Comment: [facility] potassium values may be up to 0.5 mmol/L lower than serum values. Performed By: #### L AB15, [id number] ####Mold Laminator: EDVIN HAYS ([id number])[facility])[address] [place] [address] [place] Sodium [Moles/Vol] 138 mmol/L Normal 136-145 [facility] Comment on above: Performed By: #### L AB15, [id number] ####Mold Laminator: EDVIN HAYS ([id number])[facility])[address] [place] [address] [place] Urea nitrogen [Mass/Vol] 15 mg/dL Normal 9-23 [facility] Comment on above: Performed By: #### L AB15, [id number] ####Mold Laminator: EDVIN HAYS ([id number])[facility])[address] [place] [address] [place] Anion gap [Moles/Vol] 6 mmol/L Normal 3-13 [facility] Comment on above: Performed By: #### L AB103, LAB15 #### Mold Laminator: EDVIN HAYS ([id number]) [facility]) [address] [place] [address] Calcium [Mass/Vol] 7.1 mg/dL Low 8.4-10.2 [facility] Comment on above: Performed By: #### L AB103, LAB15 #### Mold Laminator: EDVIN HAYS ([id number]) [facility]) [address] [place] [address] [place] Chloride [Moles/Vol] 112 mmol/L High 98-107 [facility] Comment on above: Performed By: #### L AB103, LAB15 #### Mold Laminator: EDVIN HAYS ([id number]) [facility] [facility] ([facility] [address] [place] [address] CO2 [Moles/Vol] 22 mmol/L Normal 22-29 [facility] Comment on above: Performed By: #### L AB103, LAB15 #### Mold Laminator: EDVIN HAYS ([id number]) [facility]) [address] [place] [address] Creatinine [Mass/Vol] 0.71 mg/dL Low 0.72-1.25 [facility] Comment on above: Performed By: #### L AB103, LAB15 #### Mold Laminator: EDVIN HAYS ([id number]) [facility] ([facility]) [address] [place] [address] GLOMERULAR FILTRATION RATE ML/MIN/1.73 SQ M.PREDICTED >90.0 Normal >60.0 [facility] Comment on above: Result Comment: Calc ulation based on the Chronic Kidney Disease Epidemiology Collaboration (CKD-EPI) equation refit without adjustment for race Performed By: #### L AB103, LAB15 #### Mold Laminator: EDVIN HAYS ([id number]) [facility] ([facility]) [address] [place] [address] [place] Glucose [Mass/Vol] 126 mg/dL High 74-100 [facility] Comment on above: Performed By: #### L AB103, LAB15 #### Mold Laminator: EDVIN HAYS ([id number]) [facility] ([facility]) [address] [place] [address] [place] Potassium [Moles/Vol] 3.3 mmol/L Low 3.5-5.1 [facility] Comment on above: Result Comment: [facility] potassium values may be up to 0.5 mmol/L lower than serum values. Performed By: #### L AB103, LAB15 #### Mold Laminator: EVDIN HAYS ([id number]) [facility] ([facility]) [address] [place] [address] Sodium [Moles/Vol] 140 mmol/L Normal 136-145 [facility] Comment on above: Performed By: #### L AB103, LAB15 #### Mold Laminator: EDVIN HAYS ([id number]) [facility] ([facility]) [address] [place] [address] Urea nitrogen [Mass/Vol] 18 mg/dL Normal 9-23 [facility] Comment on above: Performed By: #### L AB103, LAB15 #### Mold Laminator: EDVIN HAYS ([id number]) [facility] ([facility]) [address] [place] [address] BLOOD GAS ARTERIALon 025 AMOUNT OF OXYGEN 50% Normal [facility] Comment on above: Performed By: #### L AB103, LAB15 #### Mold Laminator: EDVIN HAYS ([id number]) [facility] ([facility]) [address] [place] [address] [place] Base excess Calc (Bld) [Moles/Vol] -3.3000 mmol/L Low -3.0-3.0 [facility] Comment on above: Performed By: #### L AB103, LAB15 #### Mold Laminator: EDVIN HAYS ([id number]) [facility]) [address] [place] [address] CO2 [Moles/Vol] 22.3 mmol/L Low 23.0-27.0 [facility] Comment on above: Performed By: #### L AB103, LAB15 #### Mold Laminator: EDVIN HAYS ([id number]) [facility] ([facility]) [address] [place] [address] HCO3 (Bld) [Moles/Vol] 21.2 mmol/L Normal 21.0-25.0 [facility] Comment on above: Performed By: #### L AB103, LAB15 #### Mold Laminator: EDVIN HAYS ([id number]) [facility] ([facility]) [address] [place] [address] Hemoglobin (Bld) [Mass/Vol] 11.6 g/dL Normal Screen only [facility] Comment on above: Performed By: #### L AB103, LAB15 #### Mold Laminator: EDVIN HAYS ([id number]) [facility] ([facility]) [address] [place] [address] OXYGEN SATURATION (%) IN ARTERIAL BLOOD 98.6 % Normal 95.0-100.0 [facility] Comment on above: Performed By: #### L AB103, LAB15 #### Mold Laminator: EDVIN HAYS ([id number]) [facility]) [address] [place] [address] PCO2 ARTERIAL 36.3 mm Hg Normal >35.0-<45. 0 [facility] Comment on above: Performed By: #### L AB103, LAB15 #### Mold Laminator: EDVIN HAYS ([id number]) [facility] ([facility]) [address] [place] [address] PH ARTERIAL 7.385 Normal 7.350-7.45 0 [facility] Comment on above: Performed By: #### L AB103, LAB15 #### Mold Laminator: EDVIN HAYS ([id number]) [facility] ([facility]) [address] [place] [address] PO2 ARTERIAL 187.1 mm Hg High 80.0-100.0 [facility] Comment on above: Performed By: #### L AB103, LAB15 #### Mold Laminator: EDVIN HAYS ([id number]) [facility] ([facility]) [address] [place] [address] SOURCE OF OXYGEN Ventilator Normal [facility] Comment on above: Performed By: #### L AB103, LAB15 #### Mold Laminator: EDVIN HAYS ([id number]) [facility]) [address] [place] [address] AMOUNT OF OXYGEN 100 Normal [facility] Comment on above: Performed By: #### L AB76 ####Mold Laminator: EDVIN HAYS ([id number])[facility])[address] [place] [address] Base excess Calc (Bld) [Moles/Vol] -2.7000 mmol/L Normal -3.0-3.0 [facility] Comment on above: Performed By: #### L AB76 ####Mold Laminator: EDVIN HAYS ([id number])[facility])[address] [place] [address] CO2 [Moles/Vol] 23.0 mmol/L Normal 23.0-27.0 [facility] Comment on above: Performed By: #### L AB76 ####Mold Laminator: EDVIN HAYS ([id number])[facility])[address] [place] [address] HCO3 (Bld) [Moles/Vol] 21.9 mmol/L Normal 21.0-25.0 [facility] Comment on above: Performed By: #### L AB76 ####Mold Laminator: EDVIN HAYS ([id number])[facility])[address] [place] [address] Hemoglobin (Bld) [Mass/Vol] 10.1 g/dL Normal Screen only [facility] Comment on above: Performed By: #### L AB76 ####Mold Laminator: EDVIN HAYS ([id number])[facility])[address] [place] [address] OXYGEN SATURATION (%) IN ARTERIAL BLOOD 98.3 % Normal 95.0-100.0 [facility] Comment on above: Performed By: #### L AB76 ####Mold Laminator: EDVIN [id number])[facility] ([facility])[address] [place] [address] PCO2 ARTERIAL 37.0 mm Hg Normal >35.0-<45. 0 [facility] Comment on above: Performed By: #### L AB76 ####Mold Laminator: EDVIN HAYS ([id number])[facility])[address] [place] [address] PH ARTERIAL 7.390 Normal 7.350-7.45 0 [facility] Comment on above: Performed By: #### L AB76 ####Mold Laminator: EDVIN HAYS ([id number])[facility])[address] [place] [address] PO2 ARTERIAL 193.3 mm Hg High 80.0-100.0 [facility] Comment on above: Performed By: #### L AB76 ####Mold Laminator: EDVIN HAYS ([id number])[facility])[address] [place] [address] SOURCE OF OXYGEN Ventilator Normal [facility] Comment on above: Performed By: #### L AB76 ####Mold Laminator: EDVIN HAYS ([id number])[address] BLOOD GAS, VENOUSon 03-04-20 25 AMOUNT OF OXYGEN 50% Normal [facility] Comment on above: Result Comment: GEORGE Hernadez COMMENTS: Assessment of oxygenation is best done with an arterial blood gas determination. Reference ranges for pO2, bicarbonate, and base excess are for mixed venous blood. Specimens drawn from a peripheral vein will often have higher values. Performed By: #### L AB79 ####Mold Laminator: EDVIN HAYS ([id number])[facility])[address] [place] [address] Base excess Calc (BldV) [Moles/Vol] -3.4000 mmol/L Low -3.0-3.0 [facility] Comment on above: Performed By: #### L AB79 ####Mold Laminator: EDVIN HAYS ([id number])[facility] [place] [address] [place] CO2 [Moles/Vol] 23.6 mmol/L Low 24.0-28.0 [facility] Comment on above: Performed By: #### L AB79 ####Mold Laminator: EDVIN HAYS ([id number])[facility])[address] [place] [address] HCO3 (Bld) [Moles/Vol] 22.3 mmol/L Low 23.0-27.0 [facility] Comment on above: Performed By: #### L AB79 ####Mold Laminator: EDVIN HAYS ([id number])[facility])[address] [place] [address] Hemoglobin (Bld) [Mass/Vol] 11.3 g/dL Normal Screen only [facility] Comment on above: Performed By: #### L AB79 ####Mold Laminator: EDVIN HAYS ([id number])[facility])[address] [place] [address] OXYGEN (MM HG) IN VENOUS BLOOD 53.0 mm Hg Normal [facility] Comment on above: Performed By: #### L AB79 ####Mold Laminator: EDVIN HAYS ([id number])[facility])[address] [place] [address] OXYGEN SATURATION (%) IN VENOUS BLOOD 82.7 % Normal [facility] Comment on above: Performed By: #### L AB79 ####Mold Laminator: EDVIN HAYS ([id number])[facility])[address] [place] [address] [place] PCO2, ARIE 42.6 mm Hg Normal 40.0-55.0 [facility] Comment on above: Performed By: #### L AB79 ####Mold Laminator: EDVIN HAYS ([id number])[facility])[address] [place] [address] [place] PH VENOUS 7.337 Normal 7.330-7.43 0 [facility] Comment on above: Performed By: #### L AB79 ####Mold Laminator: EDVIN HAYS ([id number])[facility] ([facility])[address] SOURCE OF OXYGEN Ventilator Normal [facility] Comment on above: Performed By: #### L AB79 ####Mold Laminator: EDVIN HAYS ([id number])[facility] ([facility])[address] Basic metabolic 1998 panelon 03-04-2025 Anion gap [Moles/Vol] 9 mmol/L 3 - 13 mmol/L [facility] Calcium [Mass/Vol] 8.1 mg/dL Low 8.4 - 10. 2 mg/dL [facility] Chloride [Moles/Vol] 110 mmol/L High 98 - 10 7 mmol/L [facility] CO2 [Moles/Vol] 19 mmol/L Low 22 - 29 mmol/L [facility] Creatinine [Mass/Vol] 0.67 mg/dL Low 0.72 - 1.25 mg/dL [facility] GFR/1.73 sq M.predicted (S/P/Bld) [Vol rate/Area] - PINF [facility] Comment on above: Calculation based on the Chronic Kidney Disease Epidemiology Collaboration (CKD-EPI) equation refit without adjustment for race Glucose [Mass/Vol] 164 mg/dL High 74 - 100 mg/dL [facility] Interpretation and review of laboratory results Abnormal [facility] Potassium [Moles/Vol] 4 mmol/L 3.5 - 5.1 mmol/L [facility] Comment on above: Plasma potassium norma ues may be up to 0.5 mmol/L lower than serum values. Sodium [Moles/Vol] 138 mmol/L 136 - 145 mmol/L [facility] Urea nitrogen [Mass/Vol] 15 mg/dL 9 - 23 mg/dL [facility] Anion gap [Moles/Vol] 6 mmol/L 3 - 13 mmol/L [facility] Calcium [Mass/Vol] 7.1 mg/dL Low 8.4 - 10. 2 mg/dL [facility] Chloride [Moles/Vol] 112 mmol/L High 98 - 10 7 mmol/L [facility] CO2 [Moles/Vol] 22 mmol/L 22 - 29 mmol/L [facility] Creatinine [Mass/Vol] 0.71 mg/dL Low 0.72 - 1.25 mg/dL [facility] GFR/1.73 sq M.predicted (S/P/Bld) [Vol rate/Area] - PINF [facility] Comment on above: Calculation based on the Chronic Kidney Disease Epidemiology Collaboration (CKD-EPI) equation refit without adjustment for race Glucose [Mass/Vol] 126 mg/dL High 74 - 100 mg/dL [facility] Interpretation and review of laboratory results Abnormal [facility] Potassium [Moles/Vol] 3.3 mmol/L Low 3.5 - 5.1 mmol/L [facility] Comment on above: Plasma potassium norma ues may be up to 0.5 mmol/L lower than serum values. Sodium [Moles/Vol] 140 mmol/L 136 - 145 mmol/L [facility] Urea nitrogen [Mass/Vol] 18 mg/dL 9 - 23 mg/dL [facility] CALCIUM, IONIZEDon 03-04- 5 CALCIUM IONIZED 4.30 mg/dL Normal 4.30-5.20 [facility] Comment on above: Performed By: #### L AB103, LAB15 #### Mold Laminator: EDVIN HAYS ([id number]) [facility]) [address] [place] [address] PH, IONIZED CALCIUM 7.35 Normal 7.31-7.46 [facility] Comment on above: Performed By: #### L AB103, LAB15 #### Mold Laminator: EDVIN HAYS ([id number]) [facility]) [address] [place] [address] CALCIUM IONIZED 4.00 mg/dL Low 4.30-5.20 [facility] Comment on above: Order Comment: Obtai n PRN and check ionized Ca level if serum Ca level less than 8.0 Performed By: #### L AB103, LAB15 #### Mold Laminator: EDVIN HAYS ([id number]) [facility]) [address] [place] [address] PH, IONIZED CALCIUM 7.38 Normal 7.31-7.46 [facility] Comment on above: Order Comment: Obtai n PRN and check ionized Ca level if serum Ca level less than 8.0 Performed By: #### L AB103, LAB15 #### Mold Laminator: EDVIN HAYS ([id number]) [facility]) [address] [place] [address] CALCIUM IONIZED 4.00 mg/dL Low 4.30-5.20 [facility] Comment on above: Performed By: #### L AB54 ####Mold Laminator: EDVIN HAYS ([id number])[facility])[address] [place] [address] PH, IONIZED CALCIUM 7.39 Normal 7.31-7.46 [facility] Comment on above: Performed By: #### L AB54 ####Mold Laminator: EDVIN HAYS ([id number])[facility])[address] [place] [address] CBC (HEMOGRAM)on 03-04-2025 Erythrocyte distribution width (RBC) [Ratio] 13.4 % Normal 11.5-15.0 [facility] Comment on above: Performed By: #### L AB294 ####Mold Laminator: EDVIN HAYS ([id number])[address] Hematocrit (Bld) [Volume fraction] 33.7 % Low 40.0-52.0 [facility] Comment on above: Performed By: #### L AB294 ####Mold Laminator: EDVIN HAYS ([id number])[facility])[address] [place] [address] Hemoglobin (Bld) [Mass/Vol] 11.4 g/dL Low 13.0-18.0 [facility] Comment on above: Performed By: #### L AB294 ####Mold Laminator: EDVIN HAYS ([id number])[address] IPF 4 Normal [facility] Comment on above: Performed By: #### L AB294 ####Mold Laminator: EDVIN HAYS ([id number])[facility])[address] [place] [address] MCH (RBC) [Entitic mass] 29.2 pg Normal 26.0-34.0 [facility] Comment on above: Performed By: #### L AB294 ####Mold Laminator: EDVIN HAYS ([id number])[facility] ([facility])[address] [place] [address] MCHC 33.8 % Normal 30.5-36.0 [facility] Comment on above: Performed By: #### L AB294 ####Mold Laminator: EDVIN HAYS ([id number])[facility] ([facility])[address] [place] [address] MCV (RBC) [Entitic vol] 86.2 fL Normal 77.0-99.0 S [facility] Comment on above: Performed By: #### L AB294 ####Mold Laminator: EDVIN HAYS ([id number])[facility] ([facility])[address] [place] [address] Platelet mean volume (Bld) [Entitic vol] 11.0 fL Normal 9.0-12.7 [facility] Comment on above: Performed By: #### L AB294 ####Mold Laminator: EDVIN HAYS ([id number])[facility] ([facility])[address] [place] [address] Platelets (Bld) [#/Vol] 114 10*3/uL Low 140-440 [facility] Comment on above: Performed By: #### L AB294 ####Mold Laminator: EDVIN HAYS ([id number])[facility] ([facility])[address] [place] [address] RBC (Bld) [#/Vol] 3.91 10*6/uL Low 4.40-5.90 [facility] Comment on above: Performed By: #### L AB294 ####Mold Laminator: EDVIN HAYS ([id number])[facility] ([facility])[address] [place] [address] WBC (Bld) [#/Vol] 8.7 10*3/uL Normal 3.6-10.7 [facility] Comment on above: Performed By: #### L AB294 ####Mold Laminator: EDVIN HAYS ([id number])[facility])[address] [place] [address] Erythrocyte distribution width (RBC) [Ratio] 13.2 % Normal 11.5-15.0 [facility] Comment on above: Performed By: #### L AB103, LAB15 #### Mold Laminator: EDVIN HAYS ([id number]) [facility] ([facility]) [address] [place] [address] Hematocrit (Bld) [Volume fraction] 29.6 % Low 40.0-52.0 [facility] Comment on above: Performed By: #### L AB103, LAB15 #### Mold Laminator: EDVIN HAYS ([id number]) [facility]) [address] [place] [address] Hemoglobin (Bld) [Mass/Vol] 9.9 g/dL Low 13.0-18.0 [facility] Comment on above: Performed By: #### L AB103, LAB15 #### Mold Laminator: EDVIN HAYS ([id number]) [facility]) [address] [place] [address] IPF 4 Normal [facility] Comment on above: Performed By: #### L AB103, LAB15 #### Mold Laminator: EDVIN HAYS ([id number]) [facility] ([facility]) [address] [place] [address] MCH (RBC) [Entitic mass] 29.2 pg Normal 26.0-34.0 [facility] Comment on above: Performed By: #### L AB103, LAB15 #### Mold Laminator: EDVIN HAYS ([id number]) [facility]) [address] [place] [address] MCHC 33.4 % Normal 30.5-36.0 [facility] Comment on above: Performed By: #### L AB103, LAB15 #### Mold Laminator: EDVIN HAYS ([id number]) [facility]) [address] [place] [address] MCV (RBC) [Entitic vol] 87.3 fL Normal 77.0-99.0 S [facility] Comment on above: Performed By: #### L AB103, LAB15 #### Mold Laminator: EDVIN HAYS ([id number]) [facility]) [address] [place] [address] Platelet mean volume (Bld) [Entitic vol] 11.3 fL Normal 9.0-12.7 [facility] Comment on above: Performed By: #### L AB103, LAB15 #### Mold Laminator: EDVIN HAYS ([id number]) [facility]) [address] [place] [address] Platelets (Bld) [#/Vol] 106 10*3/uL Low 140-440 [facility] Comment on above: Performed By: #### L AB103, LAB15 #### Mold Laminator: EDVIN HAYS ([id number]) [facility]) [address] [place] [address] RBC (Bld) [#/Vol] 3.39 10*6/uL Low 4.40-5.90 [facility] Comment on above: Performed By: #### L AB103, LAB15 #### Mold Laminator: EDVIN HAYS ([id number]) [facility]) [address] [place] [address] WBC (Bld) [#/Vol] 6.3 10*3/uL Normal 3.6-10.7 [facility] Comment on above: Performed By: #### L AB103, LAB15 #### Mold Laminator: EDVIN HAYS ([id number]) [facility]) [address] [place] [address] CBC panel Auto (Bld)on 03-04 Erythrocyte distribution width (RBC) [Ratio] 13.4 % 11.5 - 15.0 % [facility] Hematocrit (Bld) [Volume fraction] 33.7 % Low 40.0 - 52.0 % [facility] Hemoglobin (Bld) [Mass/Vol] 11.4 g/dL Low 13.0 - 18.0 g/dL [facility] Interpretation and review of laboratory results Abnormal [facility] IPF 4 [facility] MCH (RBC) [Entitic mass] 29.2 pg 26. 0 - 34.0 pg [facility] MCHC (RBC) [Mass/Vol] 33.8 % 30.5 - 36.0 % [facility] MCV (RBC) [Entitic vol] 86.2 fL 77.0 - 99.0 fL [facility] Platelet mean volume (Bld) [Entitic vol] 11 fL 9.0 - 12.7 fL [facility] Platelets (Bld) [#/Vol] 114 10*3/uL Low 140 - 440 10*3/uL [facility] RBC (Bld) [#/Vol] 3.91 10*6/uL Low 4.40 - 5.90 10*6/uL [facility] WBC (Bld) [#/Vol] 8.7 10*3/uL 3.6 - 10.7 10*3/uL [facility] Erythrocyte distribution width (RBC) [Ratio] 13.2 % 11.5 - 15.0 % [facility] Hematocrit (Bld) [Volume fraction] 29.6 % Low 40.0 - 52.0 % [facility] Hemoglobin (Bld) [Mass/Vol] 9.9 g/dL Low 13.0 - 18.0 g/dL [facility] Interpretation and review of laboratory results Abnormal [facility] IPF 4 [facility] MCH (RBC) [Entitic mass] 29.2 pg 26. 0 - 34.0 pg [facility] MCHC (RBC) [Mass/Vol] 33.4 % 30.5 - 36.0 % [facility] MCV (RBC) [Entitic vol] 87.3 fL 77.0 - 99.0 fL [facility] Platelet mean volume (Bld) [Entitic vol] 11.3 fL 9.0 - 12.7 fL [facility] Platelets (Bld) [#/Vol] 106 10*3/uL Low 140 - 440 10*3/uL [facility] RBC (Bld) [#/Vol] 3.39 10*6/uL Low 4.40 - 5.90 10*6/uL [facility] WBC (Bld) [#/Vol] 6.3 10*3/uL 3.6 - 10.7 10*3/uL [facility] COMPREHENSIVE METABOLIC PANE Luiz 03-04-2025 Albumin [Mass/Vol] 3.3 g/dL Low 3.5-5.0 [facility] Comment on above: Performed By: #### L AB103, LAB15 #### Mold Laminator: EDVIN HAYS ([id number]) [facility] [address] [place] [address] ALP [Catalytic activity/Vol] 52 U/L Normal 40-150 [facility] Comment on above: Performed By: #### L AB103, LAB15 #### Mold Laminator: EDVIN HAYS ([id number]) [facility] ([facility]) [address] [place] [address] ALT [Catalytic activity/Vol] 10 U/L Normal <40 [facility] Comment on above: Performed By: #### L AB103, LAB15 #### Mold Laminator: EDVIN HAYS ([id number]) [facility] ([facility]) [address] [place] [address] Anion gap [Moles/Vol] 6 mmol/L Normal 3-13 [facility] Comment on above: Performed By: #### L AB103, LAB15 #### Mold Laminator: EDVIN HAYS ([id number]) [facility] ([facility]) [address] [place] [address] AST [Catalytic activity/Vol] 32 U/L Normal <34 [facility] Comment on above: Performed By: #### L AB103, LAB15 #### Mold Laminator: EDVIN HAYS ([id number]) [facility] ([facility]) [address] [place] [address] [place] Bilirubin [Mass/Vol] 0.8 mg/dL Normal <1.2 [facility] Comment on above: Performed By: #### L AB103, LAB15 #### Mold Laminator: EDVIN HAYS ([id number]) [facility] ([facility]) [address] [place] [address] Calcium [Mass/Vol] 7.4 mg/dL Low 8.4-10.2 [facility] Comment on above: Performed By: #### L AB103, LAB15 #### Mold Laminator: EDVIN HAYS ([id number]) [facility] [address] [place] [address] Chloride [Moles/Vol] 113 mmol/L High 98-107 [facility] Comment on above: Performed By: #### L AB103, [id number] #### Mold Laminator: EDVIN HAYS ([id number]) [facility] ([facility]) [address] [place] [address] CO2 [Moles/Vol] 22 mmol/L Normal 22-29 [facility] Comment on above: Performed By: #### L AB103, LAB15 #### Mold Laminator: EDVIN HAYS ([id number]) [facility] ([facility]) [address] [place] [address] Creatinine [Mass/Vol] 0.72 mg/dL Normal 0.72-1.25 [facility] Comment on above: Performed By: #### L AB103, LAB15 #### Mold Laminator: EDVIN HAYS ([id number]) [facility]) [address] [place] [address] GLOMERULAR FILTRATION RATE ML/MIN/1.73 SQ M.PREDICTED >90.0 Normal >60.0 [facility] Comment on above: Result Comment: Calc ulation based on the Chronic Kidney Disease Epidemiology Collaboration (CKD-EPI) equation refit without adjustment for race Performed By: #### L AB103, LAB15 #### Mold Laminator: EDVIN HAYS ([id number]) [facility] ([facility]) [address] [place] [address] Glucose [Mass/Vol] 120 mg/dL High 74-100 [facility] Comment on above: Performed By: #### L AB103, LAB15 #### Mold Laminator: EDVIN HAYS ([id number]) [facility]) [address] [place] [address] Potassium [Moles/Vol] 3.1 mmol/L Low 3.5-5.1 [facility] Comment on above: Result Comment: [facility] potassium values may be up to 0.5 mmol/L lower than serum values. Performed By: #### L AB103, LAB15 #### Mold Laminator: EDVIN HAYS ([id number]) [facility]) [address] [place] [address] Protein [Mass/Vol] 5.1 g/dL Low 6.4-8.3 [facility] Comment on above: Performed By: #### L AB103, LAB15 #### Mold Laminator: EDVIN HAYS ([id number]) [facility]) [address] [place] [address] Sodium [Moles/Vol] 141 mmol/L Normal 136-145 [facility] Comment on above: Performed By: #### L AB103, LAB15 #### Mold Laminator: EDVIN HAYS ([id number]) [facility]) [address] [place] [address] Urea nitrogen [Mass/Vol] 17 mg/dL Normal 9-23 [facility] Comment on above: Performed By: #### L AB103, LAB15 #### Mold Laminator: EDVIN HAYS ([id number]) [facility]) [address] [place] [address] Calcium.ionized [Moles/Vol]O rdered By: Jennifer Ryan on 03-04-2025 Calcium.ionized (Bld) [Moles/Vol] 4.3 mg/dL 4.30 - 5.20 mg/dL [facility] Interpretation and review of laboratory results Normal [facility] PH, IONIZED CALCIUM 7.35 7.31 - 7.46 [facility] Calcium.ionized [Moles/Vol]o n 03-04-2025 Calcium.ionized (Bld) [Moles/Vol] 4 mg/dL Low 4.30 - 5.20 mg/dL [facility] Interpretation and review of laboratory results Abnormal [facility] PH, IONIZED CALCIUM 7.38 7.31 - 7.46 [facility] Calcium.ionized (Bld) [Moles/Vol] 4 mg/dL Low 4.30 - 5.20 mg/dL [facility] Interpretation and review of laboratory results Abnormal [facility] PH, IONIZED CALCIUM 7.39 7.31 - 7.46 [facility] Comprehensive metabolic 1998 panelon 03-04-2025 Albumin [Mass/Vol] 3.3 g/dL Low 3.5 - 5.0 g/dL [facility] ALP [Catalytic activity/Vol] 52 U/L 40 - 150 U/L [facility] ALT [Catalytic activity/Vol] 10 U/L NINF - 40 U/L [facility] Anion gap [Moles/Vol] 6 mmol/L 3 - 13 mmol/L [facility] AST [Catalytic activity/Vol] 32 U/[facility] U/L [facility] Bilirubin [Mass/Vol] 0.8 mg/dL NINF - 1.2 mg/dL [facility] Calcium [Mass/Vol] 7.4 mg/dL Low 8.4 - 10. 2 mg/dL [facility] Chloride [Moles/Vol] 113 mmol/L High 98 - 10 7 mmol/L [facility] CO2 [Moles/Vol] 22 mmol/L 22 - 29 mmol/L [facility] Creatinine [Mass/Vol] 0.72 mg/dL 0.72 - 1.25 mg/dL [facility] GFR/1.73 sq M.predicted (S/P/Bld) [Vol rate/Area] - PINF [facility] Comment on above: Calculation based on the Chronic Kidney Disease Epidemiology Collaboration (CKD-EPI) equation refit without adjustment for race Glucose [Mass/Vol] 120 mg/dL High 74 - 100 mg/dL [facility] Interpretation and review of laboratory results Abnormal [facility] Potassium [Moles/Vol] 3.1 mmol/L Low 3.5 - 5.1 mmol/L [facility] Comment on above: Plasma potassium norma ues may be up to 0.5 mmol/L lower than serum values. Protein [Mass/Vol] 5.1 g/dL Low 6.4 - 8.3 g/dL [facility] Sodium [Moles/Vol] 141 mmol/L 136 - 145 mmol/L [facility] Urea nitrogen [Mass/Vol] 17 mg/dL 9 - 23 mg/dL [facility] Consulton 03-04-2025 Consult ----- ----- Attestation signed by Martell Guthrie MD at 03/04/2025 2:33 PM I have personally performed a face to face diagnostic evaluation on this patient. In addition, I have reviewed the resident's/RECONCILIATION SPECIALIST/DRIVER MATERIAL HANDLER's care plan and agree with those findings [...] imaging are reviewed as detailed in the resident's/RECONCILIATION SPECIALIST/DRIVER MATERIAL HANDLER's note ----- Department of Internal Medicine Division of Endocrinology, Diabetes, & Metabolism Endocrinology Note Patient Name: Wallace Turk : 1965 AGE: 59 y.o. Room/Bed: T1-123/T1-123 A Admission Date: 03/04/2025 Visit Date: 03/04/2025 Reason for Endocrine Consult: post heart Provider/Team Requesting Consult: cts PCP: No primary care provider on file. 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 Normal [facility] Consult ----- ----- Attestation signed by Kobi Guerrero MD at 03/04/2025 1:03 PM I have personally performed a face to face diagnostic evaluation on this patient today on 03/04/25. Labs, imaging studies, and electronic medical record notes on [employer] have been reviewed by me. This note documented and discussed by the []aboriginal home school liaison officer []Fellow [x] NOELLE reflects my history, [...] minutes. Chief Complaint: Coronary artery disease of [place] artery of [place] heart with stable angina pectoris Additional pertinent interval history, ROS, and physical exam findings: Patient seen and examined. Sedated, intubated, pupils symmetric Heart RRR Lungs symmetric air exchange No cyanosis Assessment and Plan: mvCAD 03/04 s/p CABG x 3 Post op vent management Anemia, thrombocytopenia expected post op HTN, HLD [facility], f/u CXR and ABG SAT/SBT later today Transfuse prn Status: Critically ill Disposition: Remain in ICU until discharge ----- [facility]: Critical Care Consultation Note Date: 03/04/25 [...] the mo (more content not included)... Normal [facility] FIBRINOGENon 03-04-2025 FIBRINOGEN 174 mg/dL Low 200-400 [facility] Comment on above: Performed By: #### L [id number], [id number] #### Mold Laminator: EDVIN HAYS ([id number]) [facility] ([facility]) [address] [place] [address] FIBRINOGEN 159 mg/dL Low 200-400 [facility] Comment on above: Performed By: #### L AB103, LAB15 #### Mold Laminator: EDVIN HAYS ([id number]) [facility] ([facility]) [address] [place] [address] Fibrinogen Coag (PPP) [Mass/ Vol]on 03-04-2025 Interpretation and review of laboratory results Abnormal [facility] Fibrinogen Coag (PPP) [Mass/ Vol]Ordered By: Vannessa Dawson on 03-04-2025 Interpretation and review of laboratory results Abnormal [facility] - Chemistry and C hemistry - challengeon 03-04-2025 Glucose [Mass/Vol] 111 mg/dL High 70 - 100 mg/dL [facility] Glucose [Mass/Vol] 108 mg/dL High 70 - 100 mg/dL [facility] Glucose [Mass/Vol] 116 mg/dL High 70 - 100 mg/dL [facility] Glucose [Mass/Vol] 123 mg/dL High 70 - 100 mg/dL [facility] Glucose [Mass/Vol] 121 mg/dL High 70 - 100 mg/dL [facility] Glucose [Mass/Vol] 139 mg/dL High 70 - 100 mg/dL [facility] Glucose [Mass/Vol] 137 mg/dL High 70 - 100 mg/dL [facility] Magnesium [Mass/Vol] 1.9 mg/dL 1.6 - 2 .6 mg/dL [facility] Glucose [Mass/Vol] 138 mg/dL High 70 - 100 mg/dL [facility] Glucose [Mass/Vol] 118 mg/dL High 70 - 100 mg/dL [facility] Glucose [Mass/Vol] 102 mg/dL High 70 - 100 mg/dL [facility] Glucose [Mass/Vol] 101 mg/dL High 70 - 100 mg/dL [facility] Base excess Calc (BldV) [Moles/Vol] -3.4000 mmol/L Low -3.0 - 3.0 mmol/L [facility] CO2 (BldV) [Partial pressure] 42.6 mm[Hg] [facility] CO2 [Moles/Vol] 23.6 mmol/L Low 24.0 - 28.0 mmol/L [facility] HCO3 (Bld) [Moles/Vol] 22.3 mmol/L Low 23.0 - 27.0 mmol/L [facility] Oxygen (BldV) [Partial pressure] 53 mm[Hg] mm Hg [facility] pH (BldV) 7.337 [pH] 7.330 - 7.430 [facility] Base excess Calc (Bld) [Moles/Vol] -3.3000 mmol/L Low -3.0 - 3.0 mmol/L [facility] CO2 (Bld) [Partial pressure] 36.3 mm[Hg] - PINF [facility] CO2 [Moles/Vol] 22.3 mmol/L Low 23.0 - 27.0 mmol/L [facility] HCO3 (Bld) [Moles/Vol] 21.2 mmol/L 21.0 - 25.0 mmol/L [facility] Oxygen (Bld) [Partial pressure] 187.1 mm[Hg] High [facility] pH (Bld) 7.385 [pH] 7.350 - 7.450 [facility] Glucose [Mass/Vol] 109 mg/dL High 70 - 100 mg/dL [facility] Magnesium [Mass/Vol] 2.5 mg/dL 1.6 - 2 .6 mg/dL [facility] Glucose [Mass/Vol] 149 mg/dL High 70 - 100 mg/dL [facility] Laboratory - Chemistry and C hemistry - challengeOrdered By: Cynthia Chaudhary on 03-04-2025 Base excess Calc (Bld) [Moles/Vol] -2.7000 mmol/L -3.0 - 3.0 mmol/L [facility] CO2 (Bld) [Partial pressure] 37 mm[Hg] - PINF [facility] CO2 [Moles/Vol] 23 mmol/L 23.0 - 27.0 mmol/L [facility] HCO3 (Bld) [Moles/Vol] 21.9 mmol/L 21.0 - 25.0 mmol/L [facility] Oxygen (Bld) [Partial pressure] 193.3 mm[Hg] High [facility] pH (Bld) 7.39 [pH] 7.350 - 7.450 [facility] - Coagulationon 0 03-04-2025 Fibrinogen Coag (PPP) [Mass/Vol] 174 mg/dL Low 200 - 400 mg/dL [facility] aPTT Coag (PPP) [Time] 28.4 s 20.0 - 30.5 s [facility] INR Coag (PPP) [Relative time] 1.2 {INR} High 0.9 - 1.1 [facility] Comment on above: Recommended Anticoag ulant [...] s High 9.0 - 1 2.0 s [facility] aPTT Coag (PPP) [Time] 28.5 s 20.0 - 30.5 s [facility] INR Coag (PPP) [Relative time] 1.3 {INR} High 0.9 - 1.1 [facility] Comment on above: Recommended Anticoag ulant [...] s High 9.0 - 1 2.0 s [facility] - CoagulationOrde red By: Vannessa Dawson on 03-04-2025 Fibrinogen Coag (PPP) [Mass/Vol] 159 mg/dL Low 200 - 400 mg/dL [facility] - Hematology and Cell countson 03-04-2025 Hemoglobin (Bld) [Mass/Vol] 11.3 g/dL 7.0 g/dl [facility] Hemoglobin (Bld) [Mass/Vol] 11.6 g/dL 7.0 g/dl [facility] - Hematology and Cell countsOrdered By: Cynthia Chaudhary on 03-04-2025 Hemoglobin (Bld) [Mass/Vol] 10.1 g/dL 7.0 g/dl [facility] MAGNESIUMon 03-04-2025 Magnesium [Mass/Vol] 1.9 mg/dL Normal 1.6-2.6 [facility] Comment on above: Result Comment: GEORGE Hernadez COMMENTS: Higher values can be expected in females during menses. Performed By: #### L AB15, [id number] ####Mold Laminator: EDVIN HAYS ([id number])[address] Magnesium [Mass/Vol] 2.5 mg/dL Normal 1.6-2.6 [facility] Comment on above: Result Comment: GEORGE Hernadez COMMENTS: Higher values can be expected in females during menses. Performed By: #### L AB103, LAB15 #### Mold Laminator: EDVIN HAYS ([id number]) [facility] ([facility]) [address] [place] [address] Magnesium [Mass/Vol]on 03-04 Interpretation and review of laboratory results Normal [facility] Higher values can be expected in females during menses. [facility] Interpretation and review of laboratory results Normal [facility] Higher values can be expected in females during menses. [facility] No Panel Informationon 03-04 Interpretation and review of laboratory results Abnormal [facility] Performed by: [facility], [address] [place] [address] CLIA ID: [id number] [facility] Interpretation and review of laboratory results Abnormal [facility] Performed by: [facility], [address] [place] [address], [place] [address] CLIA ID: [id number] [facility] Interpretation and review of laboratory results Abnormal [facility] Performed by: [facility], [address] [place] [address], [place] [address] CLIA ID: [id number] [facility] Interpretation and review of laboratory results Abnormal [facility] Performed by: [facility], [address] [place] [address], [place] [address] CLIA ID: [id number] [facility] Interpretation and review of laboratory results Abnormal [facility] Performed by: [facility], [address] [place] [address], [place] [address] CLIA ID: [id number] [facility] Interpretation and review of laboratory results Abnormal [facility] Performed by: [facility], [address] [place] [address], [place] [address] CLIA ID: [id number] [facility] Interpretation and review of laboratory results Abnormal [facility] Performed by: [facility], [address] [place] [address], [place] [address] CLIA ID: [id number] [facility] Interpretation and review of laboratory results Abnormal [facility] Performed by: [facility], [address] [place] [address], [place] [address] CLIA ID: [id number] [facility] Interpretation and review of laboratory results Abnormal [facility] Performed by: [facility], [address] [place] [address], [place] [address] CLIA ID: [id number] [facility] Interpretation and review of laboratory results Abnormal [facility] Performed by: [facility], [address] [place] [address], [place] [address] CLIA ID: [id number] [facility] Interpretation and review of laboratory results Abnormal [facility] Performed by: [facility], [address] [place] [address], [place] [address] CLIA ID: [id number] [facility] Interpretation and review of laboratory results Abnormal [facility] Amount Of Oxygen 50% [facility] Interpretation and review of laboratory results Abnormal [facility] Source Of Oxygen Ventilator [facility] Assessment of oxygen ation is best done with an arterial blood gas determination. Reference ranges for pO2, bicarbonate, and base excess are for mixed venous blood. Specimens drawn from a peripheral vein will often have higher values. [facility] Amount Of Oxygen 50% [facility] Interpretation and review of laboratory results Abnormal [facility] Source Of Oxygen Ventilator [facility] Interpretation and review of laboratory results Abnormal [facility] Performed by: [facility], [address] [place] [address] CLIA ID: [id number] [facility] Interpretation and review of laboratory results Abnormal [facility] Interpretation and review of laboratory results Abnormal [facility] Performed by: [facility], [address] [place] [address] CLIA ID: [id number] [facility] No Panel InformationOrdered By: Cynthia Chaudhary on 03-04-2025 Amount Of Oxygen 100 [facility] Interpretation and review of laboratory results Abnormal [facility] Source Of Oxygen Ventilator [facility] Nursing Noteon 03-04-2025 Nursing Note Message sent regardi ng no bacitracin ointment and swish and spit ordered. 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 Normal [facility] PHOSPHORUSon 03-04-2025 Phosphate [Mass/Vol] 3.4 mg/dL Normal 2.3-4.7 [facility] Comment on above: Performed By: #### L AB103, LAB15 #### Mold Laminator: EDVIN HAYS ([id number]) [facility] ([facility]) [address] [place] [address] PROTIME AND APTTon aPTT Coag (Bld) [Time] 28.4 s Normal 20.0-30.5 [facility] Comment on above: Performed By: #### L [id number], [id number] #### Mold Laminator: EDVIN HAYS ([id number]) [facility]) [address] [place] [address] INR Coag (PPP) [Relative time] 1.2 {INR} High 0.9-1.1 [facility] Comment on above: Result Comment: Danny mmended [...] Myocardial Infarction Performed By: #### Vicente AB314, [id number] #### Mold Laminator: EDVIN HYAS ([id number]) [address] PT Coag (PPP) [Time] 12.2 s High 9.0-12.0 [facility] Comment on above: Performed By: #### Vicente AB314, [id number] #### Mold Laminator: EDVIN HAYS ([id number]) [address] aPTT Coag (Bld) [Time] 28.5 s Normal 20.0-30.5 [facility] Comment on above: Performed By: #### L AB103, LAB15 #### Mold Laminator: EDVIN HAYS ([id number]) [facility]) [address] [place] [address] INR Coag (PPP) [Relative time] 1.3 {INR} High 0.9-1.1 [facility] Comment on above: Result Comment: Danny mmended [...] Performed By: #### L AB103, LAB15 #### Mold Laminator: EDVIN HAYS ([id number]) [facility] ([facility]) [address] [place] [address] PT Coag (PPP) [Time] 13.5 s High 9.0-12.0 [facility] [employer] [facility] Comment on above: Performed By: #### L AB103, LAB15 #### Mold Laminator: EDVIN HAYS ([id number]) [facility] ([facility]) [address] [place] [address] Phosphate [Moles/Vol]on 02-12 Interpretation and review of laboratory results Normal [facility] [employer] Phosphate [Mass/Vol] 3.4 mg/dL 2.3 - 4 .7 mg/dL [facility] [employer] Vital signson 03-04-2025 Oxygen saturation in Venous blood 82.7 % [facility] [employer] XR CHEST 1 VIEWon 03-04-2025 XR CHEST 1 VIEW Patient Name: WALLACE TURK : 1965 [facility]#: [id number] Exam Date/Time: 03/04/2025 12:46 Procedure: XR CHEST 1 VIEW Ordering Provider: ROMEOR ANDREW Reason For Exam: Post op open [...] Electronically Signed Date/Time: 03/04/2025 2:52 PM EDT [facility] XR Chest Single viewon 03-04 Atelectasis in the left lung base. Lines and tubes as described. Report Dictated on Electronically Signed By: Wallace Sanchez MD Electronically Signed Date/Time: 03/04/2025 2:52 PM EDT [facility] Patient Name: WALLACE TURK : 1965 Exam [...] fracture of the left clavicle is noted. [facility] Wallace Sanchez MD - 03/04/2025 Patient Name: [...] Electronically Signed Date/Time: 03/04/2025 2:52 PM EDT [employer] Radiology Study observation (narrative) [employer] XR Chest Single viewOrdered By: Wallace Sanchez on 03-04-2025 [employer] Work Phone: 29on 03-03-2025 29 Addended by: RICHARD GALLARDO. on: 03/03/2025 01:10 PM Modules accepted: Orders [facility] 36on 03-03-2025 36 Instructed Wallace cabrera o [...] has no questions at this time. Normal [facility] 36 Hi Shadia, It looks like this is just the C-Peptide without a glucose and a MACR - both of which were Within Normal Limits. I ordered additional labs at our visit that I do not see on this document. Thank you! Richard Marquez PA-C Normal [facility] 36 Hi Crystal, Can you please discuss [...] patient. Thank you! Richard Marquez PA-C Normal [facility] [id number] 03-03-2025 [facility] COM[facility] Normal . [facility] Comment on above: Order Comment: 12121 5ZINC T4 AB SERUM FRZ Result Comment: Test Ordered: [id number] ZNT8 Antibodies ZNT8 Antibodies <15 U/mL ES Reference Range: . Reference Range: All Ages: <15 Negative > or =15 Positive Performed at: [employer] [address] [place] [id number] Radio Intelligence Operator: Magdi Monzon MD, Phone: [phone] Performed at: [facility] [employer] [id number] Radio Intelligence Operator: Nadir Mock PhD, Phone: [phone] Performed By: #### L 502.0250, L3100.7750, L501.9520, L3410.9992, L500.4100, L506.1001, L3410.9994, L506.0400, L3410.9996, L500.4050 ####[facility] [address] [place], [address] L3410.9996on 03-03-2025 [facility] 3 COMMENT Normal . [facility] Comment on above: Order Comment: [id number] 1IA2 AB SERUM FRZ Result Comment: Test Ordered: 006304 IA-2 Autoantibodies IA-2 Autoantibodies <7.5 U/mL ES Reference Range: . Reference Range: <7.5 Negative > or = 7.5 Positive Performed at: [employer] [address] [place] [id number] Radio Intelligence Operator: Magdi Monzon MD, Phone: [phone] Performed at: [facility] [employer] [id number] Radio Intelligence Operator: Nadir Mock PhD, Phone: [phone] Performed By: #### L 502.0250, L3100.7750, L501.9520, L3410.9992, L500.4100, L506.1001, L3410.9994, L506.0400, L3410.9996, L500.4050 ####[facility] [address] [place], [address] 36on 03-02-2025 36 Spoke with [place] chavez [...] he is undergoing heart bypass surgery at [facility] on Sunday 03/04. We discussed post-operative diabetes management and possibility of increased insulin dosing after his surgery for a period of time. Answered all questions to satisfaction. Dexcom download is on media tab for review though has only had sensor on since last week office visit. Normal [facility] 36on 03-01-2025 36 LVM for patient. Gav e patient msg as written by provider. Normal [facility] L3410.9994on 03-01-2025 [facility] Misc. 2 COMMENT Normal . [facility] Comment on above: Order Comment: [id number] 8GAD AB SERUM RMT Result Comment: Test Ordered: [id number] MICHELLE-65 Autoantibody MICHELLE-65 <5.0 U/mL Reference Range: 0.0-5.0 Performed at: - [facility] [id number] Radio Intelligence Operator: Sana Manuel MD, Phone: [phone] Performed at: - [facility] [id number] Radio Intelligence Operator: Nadir Mock PhD, Phone: [phone] Performed By: #### L 502.0250, L3100.7750, L501.9520, L3410.9992, L500.4100, L506.1001, L3410.9994, L506.0400, L3410.9996, L500.4050 ####[facility] [address] [place], [address] 36on 02-28-2025 36 Hi Larissa, Patient was [...] 70. Thank you! Richard Marquez PA-C Normal [facility] 36 Patient's further questions if applicable: Pt states he would like to discuss new insulin he has some questions regarding his numbers. Please advise. Normal [facility] Laboratory - Chemistry and C hemistry - challengeon 02-28-2025 Glucose [Mass/Vol] 202 mg/dL High 70 - 100 mg/dL [facility] No Panel Informationon 02-28 Interpretation and review of laboratory results Abnormal [facility] Performed by: [facility], [address] [place] [id number] CLIA ID: [id number] [facility] Nursing Noteon 02-28-[address] Lane anaya e cancelled. Patient IV removed at this time. Normal [facility] Nursing Note Blood sugar 202 no sliding scale insulin orders at this time. Per Dr. Clarke patient will be monitored in OR and will be covered as needed. No insulin orders given at this time. Normal [facility] Duplex ultrasound of carotid artery reportOrdered By: Kirby Caldwell on 02-27-2025 Study report [facility] [address] [place] [address] Carotid Duplex Ultrasound 02/25/25 1413 MR#: [id number] Acct: [id number] Name: WALLACE TURK Rep #:[id number] : 1965 59 From: Kirby Caldwell MD [...] the left vertebral artery. Procedure Carotid Duplex 14726. This is a Carotid Duplex examination using [...] Date Dictated: 02/25/25 1413 Date Transcribed: 02/27/252122 Auto Customize Painter: Signed [facility] Other Phone: Venous duplex ultrasound rep ortOrdered By: Kirby Caldwell on 02-27-2025 Vein [facility] [address] [place] [address]. [place] [address] Saphenous Vein Mapping, Bilat 02/25/25 1429 MR#: [id number] Acct: [id number] Name: WALLACE TURK Rep #:[id number] : 1965 59 From: Kirby Caldwell MD Attending Dr: JEWEL LANE Status : REG CLI Ordering Dr: JEWEL LANE Date: Location: [facility] Sex: M C Admitted: Reason For [...] Date Dictated: 02/25/25 1429 Date Transcribed: 02/27/252136 Auto Customize Painter: Signed [facility] Other Phone: C-Peptideon 02-26-2025 C PEPTIDE 2.0 ng/mL Normal 1.1-4.4 [facility] Comment on above: Result Comment: C-Pe ptide reference interval is for fasting patients. Performed at: - [facility] [address] [facility], [place], [place] [id number] Radio [employer] Operator: Nadir Mock PhD, Phone: [phone] Performed By: #### L 502.2178, L3100.0440, L501.8413, L3410.9992, L500.4100, L506.1001, L3410.9994, L506.0400, L3410.9996, L500.4050 ####[facility] [address] [place], [place], [address] 36on 02-25-2025 36 Called pharmacy, Art castañeda went through. Called pt let him know he can sisal picker script later today. Normal [facility] 36 Name of caller: Aaron patino Contact phone number: [phone] Relationship to Patient: patient Provider: Jimmy JEFF Practice: Endo Chief Complaint/Reason for Call: Pt states insurance needs a PA for medication insulin glargine (Lantus) 100 UNIT/ML pen [[id number]] Or if an alternative needs to be sent in. Pt wants to make urgently aware needs BSL levels down prior to bypass surgery on 02/28/25. Pt is at 300 BSL and needs to be at 250 or lower Best time of day caller can be reached: Any Patient advised that office/PCP has 24-48 business hours to return their call: Yes Normal [facility] 36 Noted. Notified pt's . Discussed the importance of compliance with medications and diet. She verbalizes understanding. Closing encounter. Normal [facility] Anion gap in Serum or Plasma on 02-25-2025 Anion gap [Moles/Vol] 14 mmol/L 11-25 [facility] BUN/creatinine ratioon 02-25 Urea nitrogen/Creatinine [Mass ratio] 24.4 mg/mg High 05-02 [facility] Bilirubin, totalon Bilirubin [Mass/Vol] 0.60 mg/dL 0.00-1.30 [facility] Calculated very low density lipoprotein (VLDL) cholesterol measurementon 02-25-2025 Calculated very low density lipoprotein (VLDL) cholesterol measurement 20 mg/dL [facility] Carbon dioxide, total [Moles /volume] in Central venous bloodon 02-25-2025 CO2 [Moles/Vol] 22.8 mmol/L 21.0-32.0 [facility] Carotid Duplex Ultrasoundon 02-25-2025 Carotid Duplex Ultrasound [facility] [place] [address] Carotid Duplex Ultrasound 02/25/25 1413 MR#: [id number] Acct: [id number] Name: WALLACE TURK Rep #: [id number] : 1965 59 From: Kirby Caldwell MD Attending Dr: JEWEL LANE Status: REG CLI Ordering Dr: JEWEL LANE Date: 02/25/25 Location: [facility] Sex: M C Admitted: Reason For [...] the left vertebral artery. Procedure Carotid Duplex 65840. This is a Carotid Duplex examination using [...] Date Dictated: 02/25/25 1413 Date Transcribed: 02/27/252122 Auto Customize Painter: Signed Normal [facility] Chloride assayon 02-25-2025 Chloride [Moles/Vol] 102 mmol/L 98-108 [facility] Comprehensive Metabolic Prof ilon 02-25-2025 Albumin [Mass/Vol] 4.2 g/dL Normal 3.5-5.0 [facility] Comment on above: Performed By: #### L 502.0250, L3100.7750, L501.9520, L3410.9992, L500.4100, L506.1001, L3410.9994, L506.0400, L3410.9996, L500.4050 #### [facility] Laboratory [address] [place], [address] Albumin/Globulin [Mass ratio] 1.5 {ratio} Normal 0.9-2.4 [facility] Comment on above: Performed By: #### L 502.0250, L3100.7750, L501.9520, L3410.9992, L500.4100, L506.1001, L3410.9994, L506.0400, L3410.9996, L500.4050 #### [facility] [address] [facility] [place], [address] ALK PHOS 100 U/L Normal 40-129 [facility] Comment on above: Performed By: #### L 502.0250, L3100.7750, L501.9520, L3410.9992, L500.4100, L506.1001, L3410.9994, L506.0400, L3410.9996, L500.4050 #### [facility] [address] [place], [place], [id number] ALT [Catalytic activity/Vol] 21 U/L Normal <=46 [facility] Comment on above: Performed By: #### L 502.0250, L3100.7750, L501.9520, L3410.9992, L500.4100, L506.1001, L3410.9994, L506.0400, L3410.9996, L500.4050 #### [facility] [address] [place], [address] AST [Catalytic activity/Vol] 20 U/L Normal <=37 [facility] Comment on above: Result Comment: Hemo lysis present, Results??could be affected. ?? Performed By: #### L 502.0250, L3100.7750, L501.9520, L3410.9992, L500.4100, L506.1001, L3410.9994, L506.0400, L3410.9996, L500.4050 #### [facility] [address] [place], [address] Bilirubin [Mass/Vol] 0.60 mg/dL Normal 0.00-1.30 [facility] Comment on above: Performed By: #### L 502.0250, L3100.7750, L501.9520, L3410.9992, L500.4100, L506.1001, L3410.9994, L506.0400, L3410.9996, L500.4050 #### [facility] [address] [place], [address] BUN/CRE 24.4 RATIO High 10-20 [facility] Comment on above: Performed By: #### L 502.0250, L3100.7750, L501.9520, L3410.9992, L500.4100, L506.1001, L3410.9994, L506.0400, L3410.9996, L500.4050 #### [facility] [address] [place], [address] Calcium [Mass/Vol] 9.2 mg/dL Normal 7.6-11.0 [facility] Comment on above: Performed By: #### L 502.0250, L3100.7750, L501.9520, L3410.9992, L500.4100, L506.1001, L3410.9994, L506.0400, L3410.9996, L500.4050 #### [facility] [address] [place], [address] Chloride [Moles/Vol] 102 mmol/L Normal 98-108 [facility] Comment on above: Performed By: #### L 502.0250, L3100.7750, L501.9520, L3410.9992, L500.4100, L506.1001, L3410.9994, L506.0400, L3410.9996, L500.4050 #### [facility] [address] [place], [address] CO2 [Moles/Vol] 22.8 mmol/L Normal 21.0-32.0 [facility] Comment on above: Performed By: #### L 502.0250, L3100.7750, L501.9520, L3410.9992, L500.4100, L506.1001, L3410.9994, L506.0400, L3410.9996, L500.4050 #### [facility] [address] [place], [address] Creatinine [Mass/Vol] 0.84 mg/dL Normal 0.70-1.20 [facility] Comment on above: Performed By: #### L 502.0250, L3100.7750, L501.9520, L3410.9992, L500.4100, L506.1001, L3410.9994, L506.0400, L3410.9996, L500.4050 #### [facility] [address] [place], [address] GAP 14 Normal 5-15 [facility] Comment on above: Performed By: #### L 502.0250, L3100.7750, L501.9520, L3410.9992, L500.4100, L506.1001, L3410.9994, L506.0400, L3410.9996, L500.4050 #### [facility] [address] [place], [address] GFR/1.73 sq M.predicted among non-blacks MDRD (S/P/Bld) [Vol rate/Area] 102 mL/min/{1.73_m2} Normal >60 [facility] Comment on above: Result Comment: mL/m in/1.73m2 CKD-EPI Creatinine Equation (2020) Performed By: #### L 502.0250, L3100.7750, L501.9520, L3410.9992, L500.4100, L506.1001, L3410.9994, L506.0400, L3410.9996, L500.4050 #### [facility] [address] [place], [address] Globulin (S) [Mass/Vol] 2.7 g/dL Normal 2.2-4.2 [facility] Comment on above: Performed By: #### L 502.0250, L3100.7750, L501.9520, L3410.9992, L500.4100, L506.1001, L3410.9994, L506.0400, L3410.9996, L500.4050 #### [facility] [address] [place], [address] Glucose [Mass/Vol] 288 mg/dL High 70-99 [facility] Comment on above: Performed By: #### L 502.0250, L3100.7750, L501.9520, L3410.9992, L500.4100, L506.1001, L3410.9994, L506.0400, L3410.9996, L500.4050 #### [facility] [address] [place], [address] Potassium [Moles/Vol] 4.0 mmol/L Normal 3.3-5.1 [facility] Comment on above: Result Comment: Hemo lysis present, Results??could be affected. ?? Performed By: #### L 502.0250, L3100.7750, L501.9520, L3410.9992, L500.4100, L506.1001, L3410.9994, L506.0400, L3410.9996, L500.4050 #### [facility] [address] [place], [address] Sodium [Moles/Vol] 138 mmol/L Normal 133-145 [facility] Comment on above: Performed By: #### L 502.0250, L3100.7750, L501.9520, L3410.9992, L500.4100, L506.1001, L3410.9994, L506.0400, L3410.9996, L500.4050 #### [facility] [address] [place], [place], [id number] T PROT 6.9 g/dL Normal 5.9-8.4 [facility] Comment on above: Performed By: #### L 502.0250, L3100.7750, L501.9520, L3410.9992, L500.4100, L506.1001, L3410.9994, L506.0400, L3410.9996, L500.4050 #### [facility] [address] [place], [place], [id number] Urea nitrogen [Mass/Vol] 21 mg/dL High 10-30 [facility] Comment on above: Performed By: #### L 502.0250, L3100.7750, L501.9520, L3410.9992, L500.4100, L506.1001, L3410.9994, L506.0400, L3410.9996, L500.4050 #### [facility] [address] [place], [place], [id number] Glomerular filtration rate ( GFR) estimation/1.73 sq m using serum, plasma, or whole bon 02-25-2025 GFR/1.73 sq M.predicted among non-blacks MDRD (S/P/Bld) [Vol rate/Area] 102 mL/min/{1.73_m2} >60 [facility] Comment on above: mL/min/1.73m2 CKD-EP I Creatinine Equation (2020) LDL calc ser/plason 02-26-20 25 Cholesterol in LDL [Mass/Vol] 82 mg/dL [facility] Comment on above: Vvmuurzhec=221-124 m g/dL & Higher Bmuu=563 mg/dL or greaterFriedwald Equation for LDL-C Laboratory - Chemistry and C hemistry - challengeon 02-25-2025 AST [Catalytic activity/Vol] 20 U/L <38 [facility] Comment on above: Hemolysis present, R esults could be affected. Lipid Profileon 02-25-2025 CHOL:HDL 3.27 Normal [facility] Comment on above: Performed By: #### L 502.0250, L3100.7750, L501.9520, L3410.9992, L500.4100, L506.1001, L3410.9994, L506.0400, L3410.9996, L500.4050 #### [facility] [address] [place], [address] Cholesterol [Mass/Vol] 146 mg/dL Normal <=[address] [facility] Comment on above: Result Comment: Chol esterol level, Desirable <200 mg/dL Borderline high cholesterol 200-239 mg/dL High cholesterol >=240 mg/dL Recommendations of the NCEP Adult Treatment Panel for the following risk-cutoff thresholds for the [place] population. Performed By: #### L 502.0250, L3100.7750, L501.9520, L3410.9992, L500.4100, L506.1001, L3410.9994, L506.0400, L3410.9996, L500.4050 #### [facility] [address] [place], [address] Cholesterol in HDL [Mass/Vol] 45 mg/dL Normal [facility] Comment on above: Result Comment: Padmini onal Cholesterol Education Program (NCEP) guidelines: <40 mg/dL: Low HDL-cholesterol (major risk factor for CHD) >= 60 mg/dL: High HDL-cholesterol (negative risk factor for CHD) HDL-cholesterol is affected by a number of factors, e.g. smoking, exercise, hormones, sex and age. Performed By: #### L 502.0250, L3100.7750, L501.9520, L3410.9992, L500.4100, L506.1001, L3410.9994, L506.0400, L3410.9996, L500.4050 #### [facility] [address] [place], [address] Cholesterol in LDL [Mass/Vol] 82 mg/dL Normal [facility] Comment on above: Result Comment: Bord kypsdn=996-369 mg/dL Higher Jhkr=525 mg/dL or greater Friedwald Equation for LDL-C Performed By: #### L 502.0250, L3100.7750, L501.9520, L3410.9992, L500.4100, L506.1001, L3410.9994, L506.0400, L3410.9996, L500.4050 #### [facility] [address] [place], [address] Cholesterol in VLDL [Mass/Vol] 20 mg/dL Normal 5-40 [facility] Comment on above: Performed By: #### L 502.0250, L3100.7750, L501.9520, L3410.9992, L500.4100, L506.1001, L3410.9994, L506.0400, L3410.9996, L500.4050 #### [facility] [address] [place], [address] Triglyceride [Mass/Vol] 99 mg/dL Normal [facility] Comment on above: Result Comment: The drugs N-Acetylcysteine and Metamizole may falsely depress this assay. Normal range: <150 mg/dL Borderline High: 150-199 mg/dL High: 200-499 mg/dL Very High: >500 mg/dL Performed By: #### L 502.0250, L3100.7750, L501.9520, L3410.9992, L500.4100, L506.1001, L3410.9994, L506.0400, L3410.9996, L500.4050 #### [facility] [address] [place], [address] Microalb:Creat Ratio,Random URon 02-25-2025 MALB:CREAT 14.4 mg/g CRE Normal <30 mg/g CRE [facility] Comment on above: Performed By: #### L 502.0250, L3100.7750, L501.9520, L3410.9992, L500.4100, L506.1001, L3410.9994, L506.0400, L3410.9996, L500.4050 #### [facility] [address] [place], [address] MICROALBUMIN,UR 14.5 mg/L Normal <20 mg/L [facility] Comment on above: Performed By: #### L 502.0250, L3100.7750, L501.9520, L3410.9992, L500.4100, L506.1001, L3410.9994, L506.0400, L3410.9996, L500.4050 #### [facility] [address] [place], [address] Potassium measurement (mass/ volume)on 02-25-2025 Potassium (Unsp spec) [Mass/Vol] 4.0 mmol/L 3.3-5.1 [facility] Comment on above: Hemolysis present, R esults could be affected. Random urine creatinine yash urement (mass/volume)on 02-25-2025 Creatinine Unsp time (U) [Mass/Vol] 101.00 mg/dL 39.00-259. 00 [facility] Saphenous Vein Mapping, Bila ton 02-25-2025 Saphenous Vein Mapping, Bilat [facility] [address] [place] [address] Saphenous Vein Mapping, Bilat 02/25/25 1429 MR#: [id number] Acct: [id number] Name: WALLACE TURK Rep #: [id number] : 1965 59 From: Kirby Caldwell MD [...] Physician Date Dictated: 02/25/251428 Date Transcribed: 02/27/252136 Auto Customize Painter: Signed Normal [facility] Screening total cholesterol/ high density lipoprotein (HDL) cholesterol ratioon 02-25-2025 Cholesterol.total/Choles terol in HDL [Mass ratio] 3.27 {ratio} [facility] Serum creatinine measurement (mass/volume)on 02-25-2025 Creatinine [Mass/Vol] 0.84 mg/dL 0.70-1.20 [facility] Serum globulin measurementon 02-25-2025 Globulin (S) [Mass/Vol] 2.7 g/dL 2.2-4.2 [facility] Serum glucose measurement (m ass/volume)on 02-25-2025 Glucose [Mass/Vol] 288 mg/dL High 70-99 [facility] Serum or plasma alanine yeh otransferase (ALT) measurementon 02-25-2025 ALT [Catalytic activity/Vol] 21 U/L <47 [facility] Serum or plasma albumin yash urement (mass/volume)on 02-25-2025 Albumin [Mass/Vol] 4.2 g/dL 3.5-5.0 [facility] Serum or plasma albumin/glob ulin mass ratioon 02-25-2025 Albumin/Globulin [Mass ratio] 1.5 {ratio} 0.9-2.4 [facility] Serum or plasma alkaline shreya sphatase measurementon 02-25-2025 ALP [Catalytic activity/Vol] 100 U/L 40-129 [facility] Serum or plasma calcium yash urement (mass/volume)on 02-25-2025 Calcium [Mass/Vol] 9.2 mg/dL 7.6-11.0 [facility] Serum or plasma cholesterol in HDL measurement (mass/volume)on 02-25-2025 Cholesterol in HDL [Mass/Vol] 45 mg/dL >40 [facility] Comment on above: National Cholesterol Education Program (NCEP) guidelines:<40 mg/dL: Low HDL-cholesterol (major risk factor for CHD)>= 60 mg/dL: High HDL-cholesterol (negative risk factor for CHD)HDL-cholesterol is affected by a number of factors, e.g. smoking, exercise, hormones, sex and age. Serum or plasma cholesterol measurement (mass/volume)on 02-25-2025 Cholesterol [Mass/Vol] 146 mg/dL <[address] [facility] Comment on above: Cholesterol level, D esirable <200 mg/dLBorderline high cholesterol 200-239 mg/dLHigh cholesterol >=240 mg/dLRecommendations of the NCEP Adult Treatment Panel for the following risk-cutoff thresholds for the [place] population. Serum or plasma urea nitroge n measurement (mass/volume)on 02-25-2025 Urea nitrogen [Mass/Vol] 21 mg/dL High 4-19 [facility] Sodium levelon 02-25-2025 Sodium [Moles/Vol] 138 mmol/L 133-145 [facility] T4 Free Directon 02-25-2025 T4 FREE DIRECT 1.40 ng/dL Normal 0.76-1.46 [facility] Comment on above: Performed By: #### L 502.0250, L3100.7750, L501.9520, L3410.9992, L500.4100, L506.1001, L3410.9994, L506.0400, L3410.9996, L500.4050 ####[facility] [address] [place], [address] T4 freeon 02-25-2025 Free T4 [Mass/Vol] 1.40 ng/dL 0.76-1.46 [facility] TSH DL <= 0.005 mIU/L Qnon 0 02-25-2025 TSH Qn 1.790 uIU/mL 0.300-4.20 0 [facility] Thyroid Stim Hormone (TSH)on 02-25-2025 TSH 1.790 uIU/mL Normal 0.300-4.20 0 [facility] Comment on above: Performed By: #### L 502.0250, L3100.7750, L501.9520, L3410.9992, L500.4100, L506.1001, L3410.9994, L506.0400, L3410.9996, L500.4050 #### [facility] [address] [place], [place], [id number] Total proteinon 02-25-2025 Protein [Mass/Vol] 6.9 g/dL 5.9-8.4 [facility] Triglycerides measurementon 02-25-2025 Triglyceride [Mass/Vol] 99 mg/dL <199 [facility] Comment on above: The drugs N-Acetylcy steine and Metamizole may falsely depress this assay. Normal range: <150 mg/dLBorderline High: 150-199 mg/dLHigh: 200-499 mg/dLVery High: >500 mg/dL Urine albumin measurement [facility] detection limit of 20 mg/L or less (mass/volume)on 02-25-2025 Albumin DL <= 20 mg/L (U) [Mass/Vol] 14.5 mg/L <20 mg/L [facility] Vitamin D,25 Hydroxyon 02-25 Vitamin D 25-OH 36.4 ng/mL Normal 30-100 [facility] Comment on above: Result Comment: Karin min D Status Deficiency: <20 ng/mL (50nmol/L) Insufficiency: 20-30 ng/mL (50-75 nmol/L) Sufficiency: 30-100 ng/mL (75-250 nmol/L) Toxicity: >100 ng/mL (>250 nmol/L) Performed By: #### L 502.0250, L3100.7750, L501.9520, L3410.9992, L500.4100, L506.1001, L3410.9994, L506.0400, L3410.9996, L500.4050 ####[facility] [address] [place], [place], [address] [id number] 02-24-2025 [id number] Medication List Accurate as of February 24, [...] you by Dr. Lane. Shower with the [employer] product given to you in Pre-Admission Testing. [...] Please bring photo ID and insurance information. [employer] THE MAIN DECK ARE [...] THE SAME DAY DESK AND CHECK IN. 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 He saw endocrinology today. [facility] Patient is supposed to have CABG [...] proceed with surgery Friday? Thank you. Normal [facility] 37on 02-24-2025 37 To do: - [...] print labs and bring with you. Normal [facility] AMB POC GLUCOSE TESTOrdered By: Lex Larios on 02-24-2025 Glucose [Mass/Vol] 230 mg/dL Abnormal 70 - 100 mg/dL [facility] Interpretation and review of laboratory results Abnormal [facility] AMB POC HEMOGLOBIN A1Con HbA1c (Bld) [Mass fraction] 11.7 % Abnormal - 5.7 % [facility] APTTon 02-24-2025 aPTT Coag (Bld) [Time] 25.0 s Normal 20.0-30.5 [facility] Comment on above: Result Comment: GEORGE Hernadez COMMENTS: NOTE: The therapeutic time for Heparin anticoagulation, based on Xa activity inhibition, is an APTT of 46-80 seconds. Performed By: #### L AB103, LAB15 #### Mold Laminator: EDVIN HAYS ([id number]) [facility] ([facility]) [address] [place] [address] BLOOD TYPE AND SCREEN GELon 02-24-2025 ABO GROUPING A Normal [facility] Comment on above: Performed By: #### L [id number] ####Mold Laminator: EDVIN HAYS ([id number])[facility] ([facility])[address] [place] [address] RH TYPE IN BLOOD Positive Normal [facility] Comment on above: Performed By: #### L [id number] ####Mold Laminator: EDVIN HAYS ([id number])[facility] ([facility])[address] [place] [address] CBC (HEMOGRAM)on 02-24-2025 Erythrocyte distribution width (RBC) [Ratio] 13.0 % Normal 11.5-15.0 [facility] Comment on above: Performed By: #### L AB103, LAB15 #### Mold Laminator: EDVIN HAYS ([id number]) [facility] ([facility]) [address] [place] [address] Hematocrit (Bld) [Volume fraction] 46.8 % Normal 40.0-52.0 [facility] Comment on above: Performed By: #### L AB103, LAB15 #### Mold Laminator: EDVIN [id number]) [facility]) [address] [place] [address] Hemoglobin (Bld) [Mass/Vol] 15.8 g/dL Normal 13.0-18.0 [facility] Comment on above: Performed By: #### L AB103, LAB15 #### Mold Laminator: EDVIN [id number]) [facility] [address] [place] [address] MCH (RBC) [Entitic mass] 29.0 pg Normal 26.0-34.0 [facility] Comment on above: Performed By: #### L AB103, LAB15 #### Mold Laminator: EDVIN HAYS ([id number]) [facility]) [address] [place] [address] MCHC 33.8 % Normal 30.5-36.0 [facility] Comment on above: Performed By: #### L AB103, LAB15 #### Mold Laminator: EDVIN HAYS ([id number]) [facility]) [address] [place] [address] MCV (RBC) [Entitic vol] 86.0 fL Normal 77.0-99.0 [facility] Comment on above: Performed By: #### L AB103, LAB15 #### Mold Laminator: EDVIN HAYS ([id number]) [facility]) [address] [place] [address] Platelet mean volume (Bld) [Entitic vol] 12.2 fL Normal 9.0-12.7 [facility] Comment on above: Performed By: #### L AB103, LAB15 #### Mold Laminator: EDVIN HAYS ([id number]) [facility]) [address] [place] [address] Platelets (Bld) [#/Vol] 201 10*3/uL Normal 140-440 [facility] Comment on above: Performed By: #### L AB103, LAB15 #### Mold Laminator: EDVIN HAYS ([id number]) [facility]) [address] [place] [address] RBC (Bld) [#/Vol] 5.44 10*6/uL Normal 4.40-5.90 [facility] Comment on above: Performed By: #### L AB103, LAB15 #### Mold Laminator: EDVIN HAYS ([id number]) [facility]) [address] [place] [address] WBC (Bld) [#/Vol] 4.9 10*3/uL Normal 3.6-10.7 [facility] Comment on above: Performed By: #### L AB103, LAB15 #### Mold Laminator: EDVIN HAYS ([id number]) [facility]) [address] [place] [address] COMPLETE URINALYSIS WITH REF JOSE RAMON TO CULTUREon 02-24-2025 BILIRUBIN, TOTAL PRESENCE IN URINE Negative Normal Negative [facility] Comment on above: Performed By: #### L [id number] ####Mold Laminator: EDVIN HAYS ([id number])[facility])[address] [place] [address] Clarity (U) Clear Normal Clear [facility] Comment on above: Performed By: #### L [id number] ####Mold Laminator: EDVIN HAYS ([id number])[address] Color (U) Light Yellow Normal Lt. Yellow [facility] Comment on above: Performed By: #### L [id number] ####Mold Laminator: EDVIN HAYS ([id number])[facility])[address] [place] [address] GLUCOSE (MG/DL) IN URINE >1,000 Abnormal Nor mal (<70) [facility] Comment on above: Performed By: #### L [id number] ####Mold Laminator: EDVIN HAYS ([id number])[facility])[address] [place] [address] HEMOGLOBIN PRESENCE IN URINE Negative Normal Negative [facility] Comment on above: Performed By: #### L [id number] ####Mold Laminator: EDVIN HAYS ([id number])[address] Ketones Ql (U) 10 mg/dL Abnormal Negative [facility] Comment on above: Performed By: #### L [id number] ####Mold Laminator: EDVIN HAYS ([id number])[facility])[address] [place] [address] LEUKOCYTE ESTERASE PRESENCE IN URINE BY TEST STRIP Negative Normal Negative [facility] Comment on above: Performed By: #### L [id number] ####Mold Laminator: EDVIN HAYS ([id number])[facility])[address] [place] [address] NITRITE PRESENCE IN URINE Negative Normal Negative [facility] Comment on above: Performed By: #### L [id number] ####Mold Laminator: EDVIN HAYS ([id number])[facility])[address] [place] [address] pH (U) 5.0 [pH] Normal 5.0-8.0 [facility] Comment on above: Performed By: #### L [id number] ####Mold Laminator: EDVIN HAYS ([id number])[facility])[address] [place] [address] Protein (U) [Mass/Vol] Negative Normal Negative [facility] Comment on above: Performed By: #### L [id number] ####Mold Laminator: EDVIN HAYS ([id number])[facility])[address] [place] [address] Specific gravity (U) [Rel density] 1.022 Normal 1.005-1.03 0 [facility] Comment on above: Result Comment: GEORGE Hernadez COMMENTS: A specimen with <=10 WBC is not consistent with inflammation. This specimen will not reflex to a urine culture. Performed By: #### L [id number] ####Mold Laminator: EDVIN HAYS ([id number])[facility])[address] [place] [address] UROBILINOGEN (MG/DL) IN URINE Normal Normal Normal (0-1) [facility] Comment on above: Performed By: #### L [id number] ####Mold Laminator: EDVIN HAYS ([id number])[facility])[address] [place] [address] COMPREHENSIVE METABOLIC PANE Luiz 02-24-2025 Albumin [Mass/Vol] 4.1 g/dL Normal 3.5-5.0 [facility] Comment on above: Performed By: #### L [id number] #### Mold Laminator: EDVIN HAYS ([id number]) [facility]) [address] [place] [address] ALP [Catalytic activity/Vol] 95 U/L Normal 40-150 [facility] Comment on above: Performed By: #### L [id number] #### Mold Laminator: EDVIN HAYS ([id number]) [facility]) [address] [place] [address] ALT [Catalytic activity/Vol] 23 U/L Normal <40 [facility] Comment on above: Performed By: #### L AB17 #### Mold Laminator: EDVIN HAYS ([id number]) [facility]) [address] [place] [address] Anion gap [Moles/Vol] 12 mmol/L Normal 3-13 [facility] Comment on above: Performed By: #### L AB17 #### Mold Laminator: EDVIN HAYS ([id number]) [facility]) [address] [place] [address] AST [Catalytic activity/Vol] 20 U/L Normal <34 [facility] Comment on above: Performed By: #### L AB17 #### Mold Laminator: EDVIN HAYS ([id number]) [facility]) [address] [place] [address] Bilirubin [Mass/Vol] 1.0 mg/dL Normal <1.2 [facility] Comment on above: Performed By: #### L AB17 #### Mold Laminator: EDVIN HAYS ([id number]) [facility]) [address] [place] [address] Calcium [Mass/Vol] 9.2 mg/dL Normal 8.4-10.2 [facility] Comment on above: Performed By: #### L AB17 #### Mold Laminator: EDVIN [id number]) [facility] ([facility]) [address] [place] [address] [place] Chloride [Moles/Vol] 102 mmol/L Normal 98-107 [facility] Comment on above: Performed By: #### L AB17 #### Mold Laminator: EDVIN HAYS ([id number]) [facility]) [address] [place] [address] [place] CO2 [Moles/Vol] 24 mmol/L Normal 22-29 [facility] Comment on above: Performed By: #### L [id number] #### Mold Laminator: EDVIN HAYS ([id number]) [facility]) [address] [place] [address] Creatinine [Mass/Vol] 0.84 mg/dL Normal 0.72-1.25 [facility] Comment on above: Performed By: #### L [id number] #### Mold Laminator: EDVIN HAYS ([id number]) [facility]) [address] [place] [address] GLOMERULAR FILTRATION RATE ML/MIN/1.73 SQ M.PREDICTED >90.0 Normal >60.0 [facility] Comment on above: Result Comment: Calc ulation based on the Chronic Kidney Disease Epidemiology Collaboration (CKD-EPI) equation refit without adjustment for race Performed By: #### L [id number] #### Mold Laminator: EDVIN HAYS ([id number]) [facility]) [address] [place] [address] [place] Glucose [Mass/Vol] 204 mg/dL High 74-100 [facility] Comment on above: Performed By: #### L [id number] #### Mold Laminator: EDVIN HAYS ([id number]) [facility]) [address] [place] [address] [place] Potassium [Moles/Vol] 4.1 mmol/L Normal 3.5-5.1 [facility] Comment on above: Result Comment: [facility] potassium values may be up to 0.5 mmol/L lower than serum values. Performed By: #### L AB17 #### Mold Laminator: EDVIN HAYS ([id number]) [facility]) [address] [place] [address] Protein [Mass/Vol] 7.5 g/dL Normal 6.4-8.3 [facility] Comment on above: Performed By: #### L [id number] #### Mold Laminator: EDVIN HAYS ([id number]) [facility]) [address] [place] [address] Sodium [Moles/Vol] 138 mmol/L Normal 136-145 [facility] Comment on above: Performed By: #### L AB17 #### Mold Laminator: EDVIN HAYS ([id number]) [facility]) [address] [place] [address] Urea nitrogen [Mass/Vol] 19 mg/dL Normal 9-23 [facility] Comment on above: Performed By: #### L [id number] #### Mold Laminator: EDVIN HAYS ([id number]) [facility]) [address] [place] [address] ECG 12-LEADon 02-24-2025 ECG 12-LEAD IMPRESSION: Sinus rhythm Minimal ST elevation, inferior leads No previous ECG available for comparison Electronically Signed On 02-24-2025 16:51:40 EDT by Wallace Dias [facility] HbA1c (Bld) [Mass fraction]o n 02-24-2025 Interpretation and review of laboratory results Abnormal [facility] MRSA BY PCRon 02-24-2025 MRSA BY PCR [...] modified and its performance characteristics determined by [facility]. The U. S. Food and Drug Administration has not approved or cleared this test; however, FDA clearance or approval is not currently required for clinical use. The results are not intended to be used as the sole means for clinical diagnosis or patient management decisions. Normal [facility] Comment on above: Performed By: #### L [id number] #### Mold Laminator: EDVIN HAYS ([id number]) [facility]) [address] [place] [address] Office Visiton 02-24-2025 Follow-up visit [id number] Caio Turk 1965 M Date Provider Department [place] 02/24/2025 [id number], RICHARD L [facility] None Family History Problem Relation Age of Onset Diabetes Mother Coronary artery disease Mother Heart attack Mother Stroke Mother Diabetes Father Family Status - Relation Status Age at Mother Father Level of Service:40303 OR OFFICE/OUTPATIENT NEW HIGH MDM 60 MINUTES Reason for Visit and Comments: New Patient [542] Diabetes Mellitus [183] Normal [facility] PROTHROMBIN TIMEon INR Coag (PPP) [Relative time] 1.0 {INR} Normal 0.9-1.1 [facility] Comment on above: Result Comment: Danny mmended [...] Performed By: #### L AB103, LAB15 #### Mold Laminator: EDVIN HAYS ([id number]) [facility]) [address] [place] [address] PT Coag (PPP) [Time] 10.8 s Normal 9.0-12.0 [facility] Comment on above: Performed By: #### L AB103, LAB15 #### Mold Laminator: EDVIN HAYS ([id number]) [facility]) [address] [place] [address] Progress Noteon 02-24-2025 Progress Note [facility] Wallace Burke : 1965 Primary Care Physician: No primary care provider on file. The patient and/or family/surrogate voluntarily agreed to participate in ACP services. Patient?s cognitive capacity: A&Ox3 Code Status: [x] [FULL CODE - Continue all advanced life support: CPR,intubation,invasive procedures] [_] [DNR-CCA - DO NOT do CPR, intubation] [_] [DNR-HANDLE AND VENT MACHINE OPERATOR - Comfort care only] [_] DNR form [...] patient and/or family/surrogate. Ranjana Christianson APRN - MANAGER WINTER Acute care [facility] 02/24/2025, 1:59 PM Normal [facility] Progress Note [facility] [address] [place] [address] Dept: [phone] Dept Loc: [phone] Visit type: New patient Reason for Visit: New Patient and Diabetes Mellitus Assessment and Plan 1. Type 2 diabetes mellitus with hyperglycemia, without long-term current use of insulin (HCC) - [facility] Endocrinology - AMB POC HEMOGLOBIN A1C - AMB POC GLUCOSE TEST - [facility] Ophthalmology [facility] - [employer] Transporter 8 Antibody - [...] polyneuropathy, without long-term current use of insulin ([facility]) 3. Hypertension associated with type 2 diabetes mellitus (HCC) 4. Type 2 diabetes mellitus with hyperlipidemia (HCC) ([facility]) No results found for: EGFR, TSH, CHOL, [...] --> Continue BG monitoring: via Dexcom G7 ([employer]) (or FSBS 3-4 times per day) and send in BGL in 2 weeks for review. Patient downloaded Dexcom NOELLE today and MA placed a sample Dexcom G7 and I recommended he send us logs once it is finished Does not have a meter so sent True Metrix as backup for Continuous Glucose Monitor failure --> Hypos: Gluc (more content not included)... Normal [facility] XR CHEST 2 VIEWSon 5 [...] Electronically Signed Date/Time: 02/24/2025 6:32 PM EDT [facility] XR Chest 2 Viewson No acute cardiopulmonary disease. Report Dictated on Electronically Signed By: Alfonso Lundberg MD Electronically Signed Date/Time: 02/24/2025 6:32 PM EDT [facility] Patient Name: WALLACE TURK : 1965 Exam Date/Time: 02/24/2025 14:41 Procedure: XR CHEST 2 VIEWS Ordering Provider: [employer] Reason For Exam: pre-op testing CHEST X-RAY PA/LATERAL CLINICAL INDICATION: Preoperative examination Frontal and lateral plain films of the chest were obtained. COMPARISON: None FINDINGS: The cardiac silhouette is within normal limits. No focal consolidation is seen within the lungs. No pleural effusion or pneumothorax is identified. The bony structures of the chest are unremarkable as visualized for the patient's age. [facility] Alfonso Lundberg MD - 02/24/2025 Patient Name: WALLACE TURK : 1965 Exam Date/Time: 02/24/2025 14:41 Procedure: XR CHEST 2 VIEWS Ordering Provider: [employer] Reason For Exam: pre-op testing CHEST X-RAY [...] Electronically Signed Date/Time: 02/24/2025 6:32 PM EDT [facility] [employer] Radiology Study observation (narrative) [employer] XR Chest 2 ViewsOrdered By: Alfonso Lundberg on 02-24-2025 [facility] [employer] 36on 02-22-2025 36 We have been unable to reach your patient to schedule their testing. Test Name: Vascular US carotid artery duplex bilateral and Vascular US lower extremity vein mapping for bypass bilateral 1st Attempt: 02.17.25 2nd Attempt: 02.22.25 Normal [facility] [employer] [facility] No Panel InformationOrdered By: Javi Darwin on 02-22-2025 Left arm BP 144 mmHg [facility] Work Phone: Left Prox Radial A BP 197 mmHg [facility] [employer] Work Phone: Left Prox Ulnar A BP 177 mmHg [facility] [employer] Work Phone: Left WBI 1.28 [facility] [employer] Work Phone: [phone] Right arm BP 154 mmHg [facility] [employer] Work Phone: [phone] Right Prox Radial A BP 180 mmHg [facility] [employer] Work Phone: Right Prox Ulnar A BP 184 mmHg [facility] [employer] Work Phone: [phone] Right WBI 1.19 [facility] [employer] Phone: [phone] No Panel Informationon 02-22 [...] geraldine Meds e-scribed Alem Muse, TROY - MANAGER WINTER 02/21/25 [facility] Cardiac Cath Diagnostic [facility] Imaging Services [address] [place] [address] Cardiac Cath Diagnostic MR#: [id number] Acct: [id number] Name: WALLACE TURK Rep #: [id number] : 1965 59 From: Az Enrique MD PCP: Care Physician,No Primary Status:[facility] Patient Name: WALLACE TURK Study Date: 02/07/2025 Performing: Az Enrique MD Ht: 70 inches 177.8 cm : 1965 Wt: 202.01 lbs 91.63 kg Age: 59 Gender: male BSA: 2.1 PROCEDURE(S) PERFORMED DC01-(30967)LHC/COR/LV CLINICAL PROFILE AND INDICATIONS Indications: Suspected CAD [...] multiple views using a 5 Fr. 4.0 Boyd catheter. Left Coronary Artery selective angiography was performed in multiple views using a 5 Fr. 4.0 Boyd catheter. Left Ventriculography was performed in JUÁREZ [...] an acute marginal vessel and then distal fdvo-ls-admlx collaterals noted. COLLATERAL FLOW: Collateral flow from [...] Dictated: 02/07/25 1149 Date Transcribed: 02/07/25 1252 Auto Customize Painter: CO Signed Normal [facility] Chest without Contraston Chest without Contrast [facility] Imaging Services [address], [place] [address] Chest without Contrast MR#: [id number] Acct: [id number] Name: WALLACE TURK Rep #: [id number] : 1965 M 59 From: Juan Jose gonzalez MD PCP: Care Physician,No Primary Status: REG CLI Study: Chest without Contrast Date of Exam: 02/21/25 Exam# [id number] Ordering Dr: JEWEL LANE MD PROCEDURE: CHEST [...] No acute abnormality is seen. Reading Location: [place] [address] CC: JEWEL LANE MD; No Primary Care Physician Auto Customize Painter: Signed Normal [facility] Echocardiogram study reportO rdered By: Az Enrique on 02-11-2025 Study report [facility] Services [address] [place] [address] Echo Complete 02/10/25 1604 MR#: [id number] Acct: [id number] Name: WALLACE TURK Rep #:[id number] : 1965 59 From: Az Wilkins Attending Dr: Dr. Az Enrique MD S tatus: REG CLI Ordering Dr: Az Enrique MD Date: Location: [facility] Sex: M C Admitted: Reason For [...] ~ Date Dictated: 02/10/251603 Date Transcribed: 02/11/25743 Auto Customize Painter: Signed [facility] Work Phone: Echo Completeon 02-10-2025 Echo Complete [facility] Cardiovascular Services [address] [place] [address] Echo Complete 02/10/251603 MR#: [id number] Acct: [id number] Name: WALLACE TURK Rep #: [id number] : 1965 59 From: Az Enrique MD Attending Dr: Dr. Az Enrique MD Status: TOMEKA SOARES Ordering Dr: Az Enrique MD Date: 02/10/25 Location: [facility] Sex: M C Admitted: Reason For [...] Date Dictated: 02/10/25 1604 Date Transcribed: 02/11/25743 Auto Customize Painter: Signed [facility] Office Visiton 02-09-2025 Follow-up visit [id number] Caio Turk afia 1965 M Date Provider Department Center 02/09/2025 JEWEL [facility] ACH CT None Family History Problem Relation Age of Onset Diabetes Mother Coronary artery disease Mother Heart attack Mother Stroke Mother Diabetes Father Family Status - Relation Status Age at Mother Father Level of Service:67881 OR OFFICE/OP CONSLTJ NEW/EST PT HIGH MDM 55 MINUTES Reason for Visit and Comments: New Patient [542] Normal [facility] Progress Noteon 02-09-2025 Progress Note Pre op teaching done with patient. Instructed to hold NSAIDS 7 days prior to surgery. All other medications per PAT protocol. Pharmacy confirmed. All questions answered. Normal [facility] Progress Note [facility] [address] [place] [address] [address] [facility] [address] Dept: [phone] Dept Loc: [phone] Visit type: New Reason for Visit: Evaluation of multivessel coronary artery disease Assessment: 1. Coronary artery disease of [place] artery of [place] heart with stable angina pectoris (HCC) Recommendations: [...] 12%. Echocardiogram is scheduled on 02/10/25 at [place]. Pt is here now for an evaluation. [...] time. Labs (more content not included)... Normal [facility] Absolute lymphocyte countOrd ered By: Az Enrique on 01-19-2025 Lymphocytes Auto (Unsp spec) [#/Vol] 1.95 10*3/uL 0.83-4.51 [facility] Absolute neutrophil countOrd ered By: Azvicente Enrique on 01-19-2025 Neutrophils (Bld) [#/Vol] 3.6 10*3/uL 2.0-7.7 [facility] [facility] Anion gap in Serum or Plasma Ordered By: Az Iva on 01-19-2025 Anion gap [Moles/Vol] 14 mmol/L 5-15 [facility] Automated lymphocyte count a s percentage of total leukocytesOrdered By: [place] Iva on 01-19-2025 Lymphocytes/100 WBC Auto (Unsp spec) 31.4 % 19-41 [facility] BUN/creatinine ratioOrdered By: [place] [facility] on 01-19-2025 Urea nitrogen/Creatinine [Mass ratio] 26.4 mg/mg High 10- [facility] Basic Metabolic Profile (BMP )on 01-19-2025 BUN/CRE 26.4 RATIO High 10- [facility] Comment on above: Performed By: #### L 500.2500, L100.0100 ####[facility] [address] [place], [address] Calcium [Mass/Vol] 9.2 mg/dL Normal 7.6-11.0 [facility] Comment on above: Performed By: #### L 500.2500, L100.0100 ####[facility] [address] [place], [address] Chloride [Moles/Vol] 102 mmol/L Normal 98-108 [facility] Comment on above: Performed By: #### L 500.2500, L100.0100 ####[facility] [address] [place], [address] CO2 [Moles/Vol] 23.0 mmol/L Normal 21.0-32.0 [facility] Comment on above: Performed By: #### L 500.2500, L100.0100 ####[facility] [address] [place], [address] Creatinine [Mass/Vol] 0.91 mg/dL Normal 0.70-1.20 [facility] Comment on above: Performed By: #### L 500.2500, L100.0100 ####[facility] [address] [place], [address] GAP 14 Normal 5-15 [facility] Comment on above: Performed By: #### L 500.2500, L100.0100 ####[facility] [address] [place], [address] GFR/1.73 sq M.predicted among non-blacks MDRD (S/P/Bld) [Vol rate/Area] 98 mL/min/{1.73_m2} Normal >60 [facility] Comment on above: Result Comment: mL/m in/1.73m2 CKD-EPI Creatinine Equation (2020) Performed By: #### L 500.2500, L100.0100 ####[facility] [address] [place], [address] Glucose [Mass/Vol] 259 mg/dL High 70-99 [facility] Comment on above: Performed By: #### L 500.2500, L100.0100 ####[facility] [address] [place], [address] Potassium [Moles/Vol] 4.6 mmol/L Normal 3.3-5.1 [facility] Comment on above: Performed By: #### L 500.2500, L100.0100 ####[facility] [address] [place], [address] Sodium [Moles/Vol] 139 mmol/L Normal 133-145 [facility] Comment on above: Performed By: #### L 500.2500, L100.0100 ####[facility] [address] [place], [address] Urea nitrogen [Mass/Vol] 24 mg/dL High 4-19 [facility] Comment on above: Performed By: #### L 500.2500, L100.0100 ####[facility] [address] [place], [address] Basophil percentageOrdered B y: [place] Iva on 01-19-2025 Basophils/100 WBC (Bld) 0.8 % 0-1 [facility] CBC W/Diff, Automatedon Absolute Lymph 1.95 X10 3/uL Normal 0.83-4.51 [facility] Comment on above: Performed By: #### L 500.2500, L100.0100 ####[facility] [address] [place], [address] Absolute Neut 3.6 X10 3/uL Normal 2.0-7.7 [facility] Comment on above: Performed By: #### L 500.2500, L100.0100 ####[facility] [address] [place], [address] Basophils/100 WBC (Bld) 0.8 % Normal 0-1 [facility] Comment on above: Performed By: #### L 500.2500, L100.0100 ####[facility] [address] [place], [address] Eosinophils/100 WBC (Bld) 1.9 % Normal 0-5 [facility] Comment on above: Performed By: #### L 500.2500, L100.0100 ####[facility] [address] [place], [address] Erythrocyte distribution width (RBC) [Ratio] 13.2 % Normal 11.6-14.6 [facility] Comment on above: Performed By: #### L 500.2500, L100.0100 ####[facility] [address] [place], [address] Hematocrit (Bld) [Volume fraction] 45.0 % Normal 40-54 [facility] Comment on above: Performed By: #### L 500.2500, L100.0100 ####[facility] [address] [place], [address] Hemoglobin (Bld) [Mass/Vol] 14.9 g/dL Normal 13.0-16.5 [facility] Comment on above: Performed By: #### L 500.2500, L100.0100 ####[facility] [address] [place], [address] IG% 0.500 Normal 0.0-0.9 [facility] Comment on above: Result Comment: IG% - Immature Granulocytes (promyelocytes, myelocytes and metamyelocytes) > 1% indicates that a LEFT SHIFT is Present. Performed By: #### L 500.2500, L100.0100 ####[facility] [address] [place], [address] Lymphocytes/100 WBC (Bld) 31.4 % Normal 19-41 [facility] Comment on above: Performed By: #### L 500.2500, L100.0100 ####[facility] [address] [place], [address] MCH (RBC) [Entitic mass] 28.5 pg Normal 27.0-32.0 [facility] Comment on above: Performed By: #### L 500.2500, L100.0100 ####[facility] [address] [place], [address] MCHC (RBC) [Mass/Vol] 33.1 g/dL Normal 32-36 [facility] Comment on above: Performed By: #### L 500.2500, L100.0100 ####[facility] [address] [place], [address] MCV (RBC) [Entitic vol] 86.2 fL Normal 80-94 [facility] Comment on above: Performed By: #### L 500.2500, L100.0100 ####[facility] [address] [place], [address] Monocytes/100 WBC (Bld) 7.7 % Normal 0-10 [facility] Comment on above: Performed By: #### L 500.2500, L100.0100 ####[facility] [address] [place], [address] Neutrophils/100 WBC (Bld) 57.7 % Normal 47-70 [facility] Comment on above: Performed By: #### L 500.2500, L100.0100 ####[facility] [address] [place], [address] Nucleated RBC (Bld) [#/Vol] 0 10*3/uL Normal 0-5 [facility] Comment on above: Performed By: #### L 500.2500, L100.0100 ####[facility] [address] [place], [address] Platelet mean volume (Bld) [Entitic vol] 11.8 fL Normal 6.2-12.0 [facility] Comment on above: Performed By: #### L 500.2500, L100.0100 ####[facility] [address] [place], [address] Platelets (Bld) [#/Vol] 189 10*3/uL Normal 150-450 [facility] Comment on above: Performed By: #### L 500.2500, L100.0100 ####[facility] [address] [place], [address] RBC (Bld) [#/Vol] 5.22 10*6/uL Normal 4.6-6.2 [facility] Comment on above: Performed By: #### L 500.2500, L100.0100 ####[facility] [address] [place], [address] RDW SD 41.2 fl Normal 35.1-43.9 [facility] Comment on above: Performed By: #### L 500.2500, L100.0100 ####[facility] [address] [place], [address] WBC (Bld) [#/Vol] 6.2 10*3/uL Normal 4.4-11.0 [facility] Comment on above: Performed By: #### L 500.2500, L100.0100 ####[facility] [address] [place], [address] Carbon dioxide, total [Moles /volume] in Central venous bloodOrdered By: Az Enrique on 01-19-2025 CO2 [Moles/Vol] 23.0 mmol/L 21.0-32.0 [facility] Cardiology Visit Reporton Cardiology Visit Report [facility] [address] [place], [place] [address] OFFICE VISIT Date of Service: 01/19/25 MR#: [id number] Acct: [id number] Name: WALLACE TURK Rep #: [id number] : 1965 Provider: Dr. 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 Normal [facility] Chest PA and Lateralon 01-19 Chest PA and Lateral [facility] [address] [place], [place] [address] Chest PA and Lateral MR#: [id number] Acct: [id number] Name: WALLACE TURK Rep #: [id number] : 1965 M 59 From: Suly Wilkins PCP: Dr. Oswald Quarles MD Status: REG CLI Study: Chest PA and Lateral Date of Exam: 01/19/25 Exam# [id number] Ordering Dr: Az Enrique MD PROCEDURE: CHEST PA AND LATERAL 01/19/2025 REASON FOR EXAM: CAD TECHNIQUE: CHEST PA AND LATERAL COMPARISON: 07/08/2020 FINDINGS: No focal consolidation. Bibasilar subsegmental atelectasis. No pleural effusion or pneumothorax. Cardiac silhouette is within normal limits. No acute fracture. RAD/Chest PA and Lateral IMPRESSION: No focal consolidations. Bibasilar subsegmental atelectasis. Reading Location: [facility] CC: Dr. Az Enrique MD; Dr. Oswald Quarles MD Auto Customize Painter: Signed Normal [facility] Chloride assayOrdered By: Nitin Enrique on 01-19-2025 Chloride [Moles/Vol] 102 mmol/L 98-108 [facility] Eosinophil percentageOrdered By: Az Enrique on 01-19-2025 Eosinophils/100 WBC (Bld) 1.9 % 0-5 [facility] Erythrocyte distribution wid th ratioOrdered By: Az Enrique on 01-19-2025 Erythrocyte distribution width (RBC) [Ratio] 13.2 % 11.6-14.6 [facility] Erythrocyte distribution wid th standard deviationOrdered By: Az Enrique on 01-19-2025 Erythrocyte distribution width (RBC) [Ratio] 41.2 fl 35.1-43.9 [facility] Glomerular filtration rate ( GFR) estimation/1.73 sq m using serum, plasma, or whole bOrdered By: Az Enrique on 01-19-2025 GFR/1.73 sq M.predicted among non-blacks MDRD (S/P/Bld) [Vol rate/Area] 98 mL/min/{1.73_m2} >60 [facility] Comment on above: mL/min/1.73m2 CKD-EP I Creatinine Equation (2020) Hematocrit Auto (Bld) [Volum e fraction]Ordered By: Az Enrique on 01-19-2025 Hematocrit (Bld) [Volume fraction] 45.0 % 40-54 [facility] Hemoglobin measurementOrdere d By: Az Enrique on 01-19-2025 Hemoglobin (Bld) [Mass/Vol] 14.9 g/dL 13.0-16.5 [facility] Immature granulocytes/100 WB C Auto (Bld)Ordered By: Az Enrique on 01-19-2025 Immature granulocytes/100 WBC (Bld) 0.500 % 0.0-0.9 [facility] Comment on above: IG% - Immature Granu locytes (promyelocytes, myelocytes and metamyelocytes) > 1% indicates that a LEFT SHIFT is Present. MCV (mean corpuscular volume ) determinationOrdered By: Azvicente Enrique on 01-19-2025 MCV (RBC) [Entitic vol] 86.2 fL 80-94 [facility] Mean corpuscular hemoglobin (MCH) determinationOrdered By: Az Iva on 01-19-2025 MCH (RBC) [Entitic mass] 28.5 pg 27.0-32.0 [facility] Mean corpuscular hemoglobin concentration (MCHC) determinationOrdered By: [place] Iva on 01-19-2025 MCHC (RBC) [Mass/Vol] 33.1 g/dL 32-36 [facility] Mean platelet volume determi nationOrdered By: Azpedro Enrique on 01-19-2025 Platelet mean volume (Bld) [Entitic vol] 11.8 fL 6.2-12.0 [facility] Monocyte percentageOrdered B y: [place] Iva on 01-19-2025 Monocytes/100 WBC (Bld) 7.7 % 0-10 [facility] Neutrophil percentageOrdered By: Az Iva on 01-19-2025 Neutrophils/100 WBC (Bld) 57.7 % 47-70 [facility] Nucleated red blood cell per centageOrdered By: [place] Iva on 01-19-2025 Nucleated RBC/100 WBC (Bld) [Ratio] 0 % 0-5 [facility] Platelet countOrdered By: Cy ril Iva on 01-19-2025 Platelets (Bld) [#/Vol] 189 10*3/uL 150-450 [facility] Potassium measurement (mass/ volume)Ordered By: [place] Enrique on 01-19-2025 Potassium (Unsp spec) [Mass/Vol] 4.6 mmol/L 3.3-5.1 [facility] RBC Auto (Bld) [#/Vol]Ordere d By: Azpedro Enrique on 01-19-2025 RBC (Bld) [#/Vol] 5.22 10*6/uL 4.6-6.2 [facility] Serum creatinine measurement (mass/volume)Ordered By: Az Enrique on 01-19-2025 Creatinine [Mass/Vol] 0.91 mg/dL 0.70-1.20 [facility] Serum glucose measurement (m ass/volume)Ordered By: Az Enrique on 01-19-2025 Glucose [Mass/Vol] 259 mg/dL High 70-99 [facility] Serum or plasma calcium yash urement (mass/volume)Ordered By: Az Enrique on 01-19-2025 Calcium [Mass/Vol] 9.2 mg/dL 7.6-11.0 [facility] Serum or plasma urea nitroge n measurement (mass/volume)Ordered By: Az Enrique on 01-19-2025 Urea nitrogen [Mass/Vol] 24 mg/dL High 4-19 [facility] Sodium levelOrdered By: Ramez Enrique on 01-19-2025 Sodium [Moles/Vol] 139 mmol/L 133-145 [facility] White blood cell (WBC) count Ordered By: Az Enrique on 01-19-2025 WBC (Bld) [#/Vol] 6.2 10*3/uL 4.4-11.0 [facility] CNOVon 10-15-2023 CNOV Office Visit (ENWSTR ) ----- WALLACE TURK ([id number]) 1965 M Date Time Provider Department 10/15/23 8:00 AM ADWOA STARK ENWSTR During your visit today, we recorded the following information about you: Temperature Pulse Blood pressure Weight 97.9 degrees 100/minute 156/88 93.2 kg Height 1.765 m Adwoa Stark, TROY.MANAGER WINTER 10/15/2023 8:38 AM Signed NEW CONSULT OFFICE [...] employed Dinner chicken wings OR salad OR comoran OR fast food - go out to dinner quite a bit (kuwaiti or comoran, chicken wings, steak or shrimp) Snacks none [...] lipid rich plaque 05/10/2015 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 Has 3 stents Diabetic eye exam [...] 05/10/2015 Type 2 diabetes mellitus without retinopathy ([facility]) 06/12/2015 Vitreous floaters of both eyes 06/12/2015 Vitreous floaters of both eyes 06/12/2015 PAST SURGICAL HISTORY Procedure Laterality Date PAST SURGICAL HISTORY OF 05/2012 3 stents PAST SURGICAL HISTORY OF Rt achillis repair FAMILY HISTORY Problem Relation Age of Onset Diabetes Mother Coronary Artery Disease Mother of [place] at 70 Lipids Mother Stroke Mother Diabetes [...] No E11.9 (more content not included)... Normal [facility] ALBUMIN/CREAT RATIO RND URon 09-11-2023 Albumin DL <= 20 mg/L (U) [Mass/Vol] 30.4 mg/L [facility] Albumin/Creatinine (U) [Mass ratio] 23 mg/g <30 mg/g [facility] Creatinine (U) [Mass/Vol] 134.3 mg/dL 20.0 - 300.0 mg/dL [facility] CNPNon 09-11-2023 CNPN Telephone (FAMPWS) ----- WALLACE TURK ([id number]) 1965 M Date Time Provider Department 09/11/23 [facility] During your visit today, we recorded [...] verbalizes understanding. Patient willing to try Zetia. [facility]. Oswald Morales RN, MD 09/11/2023 8:22 [...] Encounter Prescriptions (more content not included)... Normal [facility] metabolic 2000 panelon 09-11-2023 Albumin [Mass/Vol] 4.7 g/dL 3.9 - 4.9 g/dL [facility] ALP [Catalytic activity/Vol] 118 U/L High 38 - 113 U/L [facility] ALT [Catalytic activity/Vol] 29 U/L 10 - 54 U/L [facility] Anion gap [Moles/Vol] 13 mmol/L 9 - 18 mmol/L [facility] AST [Catalytic activity/Vol] 25 U/L 14 - 40 U/L [facility] Bilirubin [Mass/Vol] 0.7 mg/dL 0.2 - 1 .3 mg/dL [facility] Calcium [Mass/Vol] 9.9 mg/dL 8.5 - 10. 2 mg/dL [facility] Chloride [Moles/Vol] 100 mmol/L 97 - 10 5 mmol/L [facility] CO2 [Moles/Vol] 24 mmol/L 22 - 30 mmol/L [facility] Creatinine [Mass/Vol] 0.69 mg/dL Low 0.73 - 1.22 mg/dL [facility] Estimated Glomerular Filtration Rate 109 mL/min/1.73m >=60 mL/min/1.7 3m [facility] Glucose [Mass/Vol] 263 mg/dL High 74 - 99 mg/dL [facility] Potassium [Moles/Vol] 4.6 mmol/L 3.7 - 5.1 mmol/L [facility] Protein [Mass/Vol] 7.3 g/dL 6.3 - 8.0 g/dL [facility] Sodium [Moles/Vol] 137 mmol/L 136 - 144 mmol/L [facility] Urea nitrogen [Mass/Vol] 17 mg/dL 9 - 24 mg/dL [facility] HbA1c (Bld)on 09-11-2023 Average glucose Estimated from glycated hemoglobin (Bld) [Mass/Vol] 298 mg/dL [facility] HbA1c (Bld) [Mass fraction] 12.0 % High 4.3 - 5.6 % [facility] LIPID PANEL, NONFASTINGon Cholesterol [Mass/Vol] 160 mg/dL <200 mg/dL [facility] HDL Cholesterol, Nonfasting 44 mg/dL >39 mg/dL [facility] LDL Cholesterol, Nonfasting 82 mg/dL <100 mg/dL [facility] LDL/HDL Ratio, Nonfasting 1.86 mg/dL <2.54 mg/dL [facility] Non HDL Cholesterol, Nonfasting 116 mg/dL <130 mg/dL [facility] Total Chol/HDL Ratio, Nonfasting 3.64 mg/dL <5.10 mg/dL [facility] Triglycerides, Nonfasting 172 mg/dL High <150 mg/dL [facility] VLDL Cholesterol, Nonfasting 34 mg/dL High <30 mg/dL [facility] PSA/PROSTSPECAG DIAGon Prostate specific Ag [Mass/Vol] 0.96 ng/mL <2.60 ng/mL [facility] Urinalysis complete panel (U )on 09-11-2023 Bacteria LM.HPF (Urine sed) [#/Area] Negative Negative /HPF [facility] Bilirubin Ql (U) 1+ Abnormal Negative [facility] Clarity (Unsp spec) Clear Clear [facility] Color (U) Dark Yellow Abnormal Yellow [facility] Epithelial cells LM.HPF (Urine sed) [#/Area] None Seen [facility] Glucose Test strip (U) [Mass/Vol] 3+ Abnormal Negative [facility] Hemoglobin Ql (U) Negative Negative [facility] Hyaline casts (Urine sed) [#/Area] 0 /[LPF] 0 /LPF [facility] Ketones Ql (U) 1+ Abnormal Negative [facility] Leukocyte esterase Test strip Ql (U) Negative Negative [facility] Nitrite Ql (U) Negative Negative [facility] pH (U) 5.5 [pH] <8.5 [facility] Protein (U) [Mass/Vol] Trace Abnormal Negative Cl [facility] RBC LM.HPF (Urine sed) [#/Area] 0-2 /HPF 0-2 /HPF [facility] Specific gravity (U) [Rel density] 1.041 High 1.005 - 1.030 [facility] Urobilinogen Ql (U) 0.2 EU/dL 0.2-1.0 EU/dL [facility] WBC LM.HPF (Urine sed) [#/Area] 0-5 /HPF 0-5 /HPF [facility] ALBUMIN/CREAT RATIO RND URon 09-10-2023 Albumin DL <= 20 mg/L (U) [Mass/Vol] 30.4 mg/L Normal [facility] Comment on above: Order Comment: Speci men Type: URINE SPECIMENOrdering Facility: [facility] Address: [address] [place] [address] Performed By: #### U ACR ####[facility] LABCLIA [id number] [place] [address] [place] Albumin/Creatinine (U) [Mass ratio] 23 mg/g Normal <30 [facility] Comment on above: Order Comment: Speci men Type: URINE SPECIMENOrdering Facility: [facility] Address: [address] [place] [address] Result Comment: Adul t Male and Female Nephrotic Criteria: <30 mg/g is considered normal to mildly increased 30-300 mg/g is considered moderately increased >300 mg/g is considered severely increased KDIGO. (2013). KDIGO 2012 Clinical Practice Guideline for the Evaluation and Management of Chronic Kidney Disease. Official Journal of the International Society of Nephrology, 3(1), 1-150. Performed By: #### U ACR ####[facility] LABCLIA [id number] [place] [address] [place] Creatinine (U) [Mass/Vol] 134.3 mg/dL Normal 20.0-300.0 [facility] Comment on above: Order Comment: Speci men Type: URINE SPECIMENOrdering Facility: [facility] Address: [address] [place] [address] Performed By: #### U ACR ####[facility] LABCLIA [id number] [place] [address] [place] CBC W Auto Differential pane l (Bld)on 09-10-2023 Basophils (Bld) [#/Vol] 0.08 10*3/uL <0.11 k/uL [facility] Basophils/100 WBC (Bld) 1.1 % C [facility] Differential cell count method Nom (Bld) Auto [facility] Eosinophils (Bld) [#/Vol] 0.13 10*3/uL <0.46 k/uL [facility] Eosinophils/100 WBC (Bld) 1.8 % [facility] Erythrocyte distribution width (RBC) [Ratio] 12.6 % 11.5 - 15.0 % [facility] Hematocrit (Bld) [Volume fraction] 47.8 % 39.0 - 51.0 % [facility] Hemoglobin (Bld) [Mass/Vol] 16.2 g/dL 13.0 - 17.0 g/dL [facility] Immature granulocytes (Bld) [#/Vol] 0.03 10*3/uL <0.10 k/uL [facility] Immature granulocytes/100 WBC (Bld) 0.4 % [facility] Lymphocytes (Bld) [#/Vol] 1.97 10*3/uL 1.00 - 4.00 k/uL [facility] Lymphocytes/100 WBC (Bld) 27.7 % [facility] MCH (RBC) [Entitic mass] 28.6 pg 26. 0 - 34.0 pg [facility] MCHC (RBC) [Mass/Vol] 33.9 g/dL 30.5 - 36.0 g/dL [facility] MCV (RBC) [Entitic vol] 84.5 fL 80.0 - 100.0 fL [facility] Monocytes (Bld) [#/Vol] 0.53 10*3/uL <0.87 k/uL [facility] Monocytes/100 WBC (Bld) 7.5 % C [facility] Neutrophils (Bld) [#/Vol] 4.37 10*3/uL 1.45 - 7.50 k/uL [facility] Neutrophils/100 WBC (Bld) 61.5 % [facility] Nucleated RBC (Bld) [#/Vol] <0.01 k/uL [facility] Nucleated RBC/100 WBC (Bld) [Ratio] 0.0 /100 WBC [facility] Platelet mean volume (Bld) [Entitic vol] 11.9 fL 9.0 - 12.7 fL [facility] Platelets (Bld) [#/Vol] 199 10*3/uL 150 - 400 k/uL [facility] RBC (Bld) [#/Vol] 5.66 10*6/uL 4.20 - 6.00 m/uL [facility] WBC (Bld) [#/Vol] 7.11 10*3/uL 3.70 - 11.00 k/uL [facility] Basophils (Bld) [#/Vol] 0.08 10*3/uL Normal <0.11 [facility] Comment on above: Order Comment: Speci men Type: BLOOD SPECIMENOrdering Facility: [facility] Address: [address] [place] [address] Performed By: #### 5 7021-8 ####[facility] LABCLIA [id number] [place] [address] [place] Basophils/100 WBC (Bld) 1.1 % Normal [facility] Comment on above: Order Comment: Speci men Type: BLOOD SPECIMENOrdering Facility: [facility] Address: [address] [place] [address] Performed By: #### 5 7021-8 ####[facility] LABCLIA [id number] [place] [address] [place] Differential cell count method Nom (Bld) Auto Normal [facility] Comment on above: Order Comment: Speci men Type: BLOOD SPECIMENOrdering Facility: [facility] Address: [address] [place] [address] Performed By: #### 5 7021-8 ####[facility] LABCLIA [id number] [place] [address] [place] Eosinophils (Bld) [#/Vol] 0.13 10*3/uL Normal <0.46 [facility] Comment on above: Order Comment: Speci men Type: BLOOD SPECIMENOrdering Facility: [facility] Address: [address] [place] [address] Performed By: #### 5 7021-8 ####[facility] LABCLIA [id number] [place] [address] [place] Eosinophils/100 WBC (Bld) 1.8 % Normal [facility] [facility] Comment on above: Order Comment: Speci men Type: BLOOD SPECIMENOrdering Facility: [facility] Address: [address] [place] [address] Performed By: #### 5 7021-8 ####[facility] LABCLIA [id number] [place] [address] [place] Erythrocyte distribution width (RBC) [Ratio] 12.6 % Normal 11.5-15.0 [facility] Comment on above: Order Comment: Speci men Type: BLOOD SPECIMENOrdering Facility: [facility] Address: [address] [place] [address] Performed By: #### 5 7021-8 ####[facility] LABIA [id number] [place] [address] [place] Hematocrit (Bld) [Volume fraction] 47.8 % Normal 39.0-51.0 [facility] Comment on above: Order Comment: Speci men Type: BLOOD SPECIMENOrdering Facility: [facility] Address: [address] [place] [address] Performed By: #### 5 7021-8 ####[facility] LABIA [id number] [place] [address] [place] Hemoglobin (Bld) [Mass/Vol] 16.2 g/dL Normal 13.0-17.0 [facility] Comment on above: Order Comment: Speci men Type: BLOOD SPECIMENOrdering Facility: [facility] Address: [address] [place] [address] Performed By: #### 5 7021-8 ####[facility] LABIA [id number] [place] [address] [place] Immature granulocytes (Bld) [#/Vol] 0.03 10*3/uL Normal <0.10 [facility] Comment on above: Order Comment: Speci men Type: BLOOD SPECIMENOrdering Facility: [facility] Address: [address] [place] [address] Performed By: #### 5 7021-8 ####[facility] LABIA [id number] [place] [address] [place] Immature granulocytes/100 WBC (Bld) 0.4 % Normal [facility] Comment on above: Order Comment: Speci men Type: BLOOD SPECIMENOrdering Facility: [facility] Address: [address] [place] [address] Performed By: #### 5 7021-8 ####[facility] LABCLIA [id number] [place] [address] [place] Lymphocytes (Bld) [#/Vol] 1.97 10*3/uL Normal 1.00-4.00 [facility] Comment on above: Order Comment: Speci men Type: BLOOD SPECIMENOrdering Facility: [facility] Address: [address] [place] [address] Performed By: #### 5 7021-8 ####[facility] LABCLIA [id number] [place] [address] [place] Lymphocytes/100 WBC (Bld) 27.7 % Normal [facility] Comment on above: Order Comment: Speci men Type: BLOOD SPECIMENOrdering Facility: [facility] Address: [address] [place] [address] Performed By: #### 5 7021-8 ####[facility] LABIA [id number] [place] [address] [place] MCH (RBC) [Entitic mass] 28.6 pg Normal 26.0-34.0 [facility] Comment on above: Order Comment: Speci men Type: BLOOD SPECIMENOrdering Facility: [facility] Address: [address] [place] [address] Performed By: #### 5 7021-8 ####[facility] LABCLIA [id number] [place] [address] [place] MCHC (RBC) [Mass/Vol] 33.9 g/dL Normal 30.5-36.0 [facility] Comment on above: Order Comment: Speci men Type: BLOOD SPECIMENOrdering Facility: [facility] Address: [address] [place] [address] Performed By: #### 5 7021-8 ####[facility] LABIA [id number] [place] [address] [place] MCV (RBC) [Entitic vol] 84.5 fL Normal 80.0-100.0 [facility] Comment on above: Order Comment: Speci men Type: BLOOD SPECIMENOrdering Facility: [facility] Address: [address] [place] [address] Performed By: #### 5 7021-8 ####[facility] LABIA [id number] [place] [address] [place] Monocytes (Bld) [#/Vol] 0.53 10*3/uL Normal <0.87 [facility] Comment on above: Order Comment: Speci men Type: BLOOD SPECIMENOrdering Facility: [facility] Address: [address] [place] [address] Performed By: #### 5 7021-8 ####[facility] LABIA [id number] [place] [address] [place] Monocytes/100 WBC (Bld) 7.5 % Normal [facility] Comment on above: Order Comment: Speci men Type: BLOOD SPECIMENOrdering Facility: [facility] Address: [address] [place] [address] Performed By: #### 5 7021-8 ####[facility] LABIA [id number] [place] [address] [place] Neutrophils (Bld) [#/Vol] 4.37 10*3/uL Normal 1.45-7.50 [facility] Comment on above: Order Comment: Speci men Type: BLOOD SPECIMENOrdering Facility: [facility] Address: [address] [place] [address] Performed By: #### 5 7021-8 ####[facility] LABIA [id number] [place] [address] [place] Neutrophils/100 WBC (Bld) 61.5 % Normal [facility] Comment on above: Order Comment: Speci men Type: BLOOD SPECIMENOrdering Facility: [facility] Address: [address] [place] [address] Performed By: #### 5 7021-8 ####[facility] LABCLIA [id number] [place] [address] [place] Nucleated RBC (Bld) [#/Vol] 10*3/uL Normal <0.01 [facility] Comment on above: Order Comment: Speci men Type: BLOOD SPECIMENOrdering Facility: [facility] Address: [address] [place] [address] Performed By: #### 5 7021-8 ####[facility] LABIA [id number] [place] [address] [place] Nucleated RBC/100 WBC (Bld) [Ratio] 0.0 /100 WBC Normal [facility] Comment on above: Order Comment: Speci men Type: BLOOD SPECIMENOrdering Facility: [facility] Address: [address] [place] [address] Performed By: #### 5 7021-8 ####[facility] LABIA [id number] [place] [address] [place] Platelet mean volume (Bld) [Entitic vol] 11.9 fL Normal 9.0-12.7 [facility] Comment on above: Order Comment: Speci men Type: BLOOD SPECIMENOrdering Facility: [facility] Address: [address] [place] [address] Performed By: #### 5 7021-8 ####[facility] LABIA [id number] [place] [address] [place] Platelets (Bld) [#/Vol] 199 10*3/uL Normal 150-400 [facility] Comment on above: Order Comment: Speci men Type: BLOOD SPECIMENOrdering Facility: [facility] Address: [address] [place] [address] Performed By: #### 5 7021-8 ####[facility] LABCLIA [id number] [place] [address] [place] RBC (Bld) [#/Vol] 5.66 10*6/uL Normal 4.20-6.00 [facility] Comment on above: Order Comment: Speci men Type: BLOOD SPECIMENOrdering Facility: [facility] Address: [address] [place] [address] Performed By: #### 5 7021-8 ####[facility] LABCLIA [id number] [place] [address] [place] WBC (Bld) [#/Vol] 7.11 10*3/uL Normal 3.70-11.00 [facility] Comment on above: Order Comment: Speci men Type: BLOOD SPECIMENOrdering Facility: [facility] Address: [address] [place] [address] Performed By: #### 5 7021-8 ####[facility] LABCLIA [id number] [address] OF [facility] CNOVon 09-10-2023 CNOV Office Visit (FAMPWS ) ----- WALLACE TURK ([id number]) 1965 M Date Time Provider Department 09/10/23 [...] lipid rich plaque 05/10/2015 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 ([facility]) 05/10/2015 Type 2 diabetes mellitus without retinopathy ([facility]) 06/12/2015 Vitreous floaters of both eyes 06/12/2015 Vitreous floaters of both eyes 06/12/2015 Previous Surgical History PAST SURGICAL HISTORY Procedure Laterality Date PAST SURGICAL HISTORY OF 05/2012 3 stents PAST SURGICAL HISTORY OF Rt achillis repair Family History FAMILY HISTORY Problem Relation Age of Onset Diabetes Mother Coronary Artery Disease Mother of [place] at 70 Lipids Mother Stroke Mother Diabetes Father Alzheimer's Disease Paternal Grandfather Patient Allergies ALLERGIES Allergen Reactions [place] Itching Watermelon Swelling Lipitor [Atorvastat* Other: See [...] or lesions. (more content not included)... Normal [facility] metabolic 2000 panelon 09-10-2023 Albumin [Mass/Vol] 4.7 g/dL Normal 3.9-4.9 [facility] Comment on above: Order Comment: Speci men Type: BLOOD SPECIMENOrdering Facility: [facility] Address: [address] [place] [address] Performed By: #### 2 4323-8, LIPNF ####[facility] LABCLIA [id number] [place] [address] [place] ALP [Catalytic activity/Vol] 118 U/L High 38-113 [facility] Comment on above: Order Comment: Speci men Type: BLOOD SPECIMENOrdering Facility: [facility] Address: [address] [place] [address] Performed By: #### 2 4323-8, LIPNF ####[facility] LABCLIA [id number] [place] [address] [place] ALT [Catalytic activity/Vol] 29 U/L Normal 10-54 [facility] Comment on above: Order Comment: Speci men Type: BLOOD SPECIMENOrdering Facility: [facility] Address: [address] [place] [address] Performed By: #### 2 4323-8, LIPNF ####[facility] LABCLIA [id number] [place] [address] [place] Anion gap [Moles/Vol] 13 mmol/L Normal 9-18 [facility] Comment on above: Order Comment: Speci men Type: BLOOD SPECIMENOrdering Facility: [facility] Address: [address] [place] [address] Performed By: #### 2 4323-8, LIPNF ####[facility] LABCLIA [id number] [place] [address] [place] AST [Catalytic activity/Vol] 25 U/L Normal 14-40 [facility] Comment on above: Order Comment: Speci men Type: BLOOD SPECIMENOrdering Facility: [facility] Address: [address] [place] [address] Performed By: #### 2 4323-8, LIPNF ####[facility] LABCLIA [id number] [place] [address] [place] Bilirubin [Mass/Vol] 0.7 mg/dL Normal 0.2-1.3 [facility] Comment on above: Order Comment: Speci men Type: BLOOD SPECIMENOrdering Facility: [facility] Address: [address] [place] [address] Performed By: #### 2 4323-8, LIPNF ####[facility] LABCLIA [id number] [place] [address] [place] Calcium [Mass/Vol] 9.9 mg/dL Normal 8.5-10.2 [facility] Comment on above: Order Comment: Speci men Type: BLOOD SPECIMENOrdering Facility: [facility] Address: [address] [place] [address] Performed By: #### 2 4323-8, LIPNF ####[facility] LABCLIA [id number] [place] [address] [place] Chloride [Moles/Vol] 100 mmol/L Normal 97-105 [facility] Comment on above: Order Comment: Speci men Type: BLOOD SPECIMENOrdering Facility: [facility] Address: [address] [place] [address] Performed By: #### 2 4323-8, LIPNF ####[facility] LABCLIA [id number] [place] [address] [place] CO2 [Moles/Vol] 24 mmol/L Normal 22-30 [facility] Comment on above: Order Comment: Speci men Type: BLOOD SPECIMENOrdering Facility: [facility] Address: [address] [place] [address] Performed By: #### 2 4323-8, LIPNF ####[facility] LABCLIA [id number] [place] [address] [place] Creatinine [Mass/Vol] 0.69 mg/dL Low 0.73-1.22 [facility] Comment on above: Order Comment: Curtis mckee Type: BLOOD SPECIMENOrdering Facility: [facility] Address: [address] [place] [address] Performed By: #### 2 4323-8, LIPDRAKE ####[facility] LABCLIA [id number] [place] [address] [place] [facility] [place] Creatinine and Glomerular filtration rate.predicted panel (S/P/Bld) 109 mL/min/1.73m??? Normal >=60 [facility] Comment on above: Order Comment: Curtis mckee Type: BLOOD SPECIMENOrdering Facility: [facility] Address: [address] [place] [address] Result Comment: Gerri mated Glomerular Filtration Rate [...] GFR. Performed By: #### 2 4323-8, LIPNF ####[facility] LABCLIA [id number] [place] [address] [place] Glucose [Mass/Vol] 263 mg/dL High 74-99 [facility] Comment on above: Order Comment: Curtis mckee Type: BLOOD SPECIMENOrdering Facility: [facility] Address: [address] [place] [address] Result Comment: The [place] Diabetes Association (ADA) provides guidance for cutoff [...] Standards of Medical Care in Diabetes 2016, [place] Diabetes Association. Diabetes Care. 2016.39(Suppl 1). Performed By: #### 2 4323-8, LIPNF ####[facility] LABCLIA [id number] [place] [address] [place] Potassium [Moles/Vol] 4.6 mmol/L Normal 3.7-5.1 [facility] Comment on above: Order Comment: Speci men Type: BLOOD SPECIMENOrdering Facility: [facility] Address: [address] [place] [address] Performed By: #### 2 4323-8, LIPNF ####[facility] LABCLIA [id number] [place] [address] [place] Protein [Mass/Vol] 7.3 g/dL Normal 6.3-8.0 [facility] Comment on above: Order Comment: Speci men Type: BLOOD SPECIMENOrdering Facility: [facility] Address: [address] [place] [address] Performed By: #### 2 4323-8, LIPNF ####[facility] LABCLIA [id number] [place] [address] [place] Sodium [Moles/Vol] 137 mmol/L Normal 136-144 [facility] Comment on above: Order Comment: Speci men Type: BLOOD SPECIMENOrdering Facility: [facility] Address: [address] [place] [place] [id number] Performed By: #### 2 4323-8, LIPNF ####[facility] LABCLIA [id number] [place] [id number] [place] Urea nitrogen [Mass/Vol] 17 mg/dL Normal 9-24 [facility] Comment on above: Order Comment: Speci men Type: BLOOD SPECIMENOrdering Facility: [facility] Address: [address] [place] [address] Performed By: #### 2 4323-8, LIPNF ####[facility] LABIA [id number] [address] OF [facility] HbA1c (Bld)on 09-10-2023 Average glucose Estimated from glycated hemoglobin (Bld) [Mass/Vol] 298 mg/dL Normal [facility] Comment on above: Order Comment: Speci men Type: BLOOD SPECIMENOrdering Facility: [facility] Address: [address] [place] [address] Result Comment: eAG: (Estimated average glucose) is a calculated value from HgbA1c and is sales representative leather goods of the average blood glucose level in the last 2-3 month period. Performed By: #### 5 5454-3 ####[facility] [id number] [address] STATES OF [facility] HbA1c (Bld) [Mass fraction] 12.0 % High 4.3-5.6 [facility] Comment on above: Order Comment: Curtis mckee Type: BLOOD SPECIMENOrdering Facility: [facility] Address: [address] [place] [address] Result Comment: Amer [place] Diabetes Association guidelines indicate that patients with HgbA1c in the range 5.7-6.4% are at increased risk for development of diabetes, and intervention by lifestyle modification may be beneficial. HgbA1c greater or equal to 6.5% is considered diagnostic of diabetes. Performed By: #### 5 5454-3 ####[facility] LABIA [id number] [address] OF [place] LIPID PANEL, NONFASTINGon Cholesterol [Mass/Vol] 160 mg/dL Normal <200 [facility] Comment on above: Order Comment: Curtis mckee Type: BLOOD SPECIMENOrdering Facility: [facility] Address: [address] [place] [address] Result Comment: <200 mg/dL, Desirable 200-239 mg/dL, Borderline high >239 mg/dL, High Performed By: #### 2 4323-8, LIPNF ####[facility] LABCLIA [id number] [place] [address] [place] HDL CHOLESTEROL, NF 44 mg/dL Normal >39 [facility] Comment on above: Order Comment: Curtis mckee Type: BLOOD SPECIMENOrdering Facility: [facility] Address: [address] [place] [address] Result Comment: 40-5 9 mg/dL, Acceptable >59 mg/dL, High: Negative risk factor for coronary heart disease <40 mg/dL, Low: Positive risk factor for coronary heart disease Performed By: #### 2 4323-8, LIPNF ####[facility] LABCLIA [id number] [address] LDL CHOLESTEROL, NF 82 mg/dL Normal <100 [facility] Comment on above: Order Comment: [facility] Type: BLOOD SPECIMENOrdering Facility: [facility] Address: [address] [place] [address] Result Comment: <100 mg/dL, Optimal 100-129 mg/dL, Near optimal/above optimal 130-159 mg/dL, Borderline high 160-189 mg/dL, High >189 mg/dL, Very high Secondary prevention optimal LDL Cholesterol levels are recommended to be < 70 mg/dL Performed By: #### 2 4323-8, LIPNF ####[facility] LABCLIA [id number] [address] STATES [place] LDL/HDL RATIO, NF 1.86 mg/dL Normal <2.54 [facility] Comment on above: Order Comment: [facility] Type: BLOOD SPECIMENOrdering Facility: [facility] Address: [address] [place] [address] Result Comment: Marta virgen: 1. National Cholesterol Education Program ATP III Guideline At-A-Glance Quick Desk Reference: National Heart, Lung, and Blood [place]. National Institutes of Health. 2001: NIH Publication No. 01-3305. 2. An International Atherosclerosis Society position paper: global recommendations for the management of dyslipidemia: executive summary, Atherosclerosis. 2014: 232(2):410-413. Performed By: #### 2 4323-8, LIPNF ####[facility] LABCLIA [id number] [address] [place] NON HDL CHOL, NF 116 mg/dL Normal <130 [facility] Comment on above: Order Comment: Speci men Type: BLOOD SPECIMENOrdering Facility: [facility] Address: [address] [place] [address] Result Comment: <130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 mg/dL Normal 7 - [address] [facility] Comment on above: Performed By: #### 2 58748 #### [facility],[address] [place] [address] BRAIN W/O CONTRAST 05-14 CT BRAIN W/O CONTRAST [address] [address] Patient: WALLACE TURK Phone#: : 1965 Age: 57 Gender: M Pt. Type: ER Account: [id number] Location: [facility] Ordering: ANABELA KNOX Exam Date: 05/31/2023/18:15 Family Phys: Charge Code: 355397 Physician: Meriwether Order #: [id number] Dose#: 52.3 mGy PROCEDURE: CT BRAIN WITHOUT [...] frontal scalp soft tissue hematoma Dictated by: Madidson Helton MD on 06/01/2023 at 7:31 Continued Report - Page 2 of 2 Patient: WALLACE TURK Phone#: : 1965 Age: 57 Gender: M Pt. Type: ER Account: [id number] Location: 052 Ordering: ANABELA MONZONER Exam Date: 05/31/2023/18:15 Family Phys: Charge Code: 316798 Physician: Meriwether Order #: [id number] Dose#: 52.3 mGy Approved by: Maddison Helton MD on 06/01/2023 at 7:[address] [facility] CT CERVICAL W/O CONTRASTon 1 07-31-2022 CT CERVICAL W/O CONTRAST [place] [address] Patient: WALLACE TURK Phone#: : 1965 Age: 57 Gender: M Pt. Type: ER Account: [id number] Location: 052 Ordering: ANABELA KNOX Exam Date: 05/31/2023/18:15 Family Phys: Charge Code: 043868 Physician: Meriwether Order #: [id number] Dose#: 14.4 mGy PROCEDURE: CT CERVICAL WITHOUT [...] in the left lobe of the thyroid, sales representative leather goods nodule measures 0.9 x 0.8 cm. Calcification [...] 57 Gender: M Pt. Type: ER Account: [id number] Location: 052 Ordering: ANABELA KNOX Exam Date: 05/31/2023/18:15 Family Phys: Charge Code: 492378 Physician: Meriwether Order #: [id number] Dose#: 14.4 mGy 3. Left thyroid nodules. Recommend follow-up thyroid ultrasound for further characterization. Dictated by: Maddison Helton MD on 06/01/2023 at 7:37 Approved by: Maddison Helton MD on 06/01/2023 at 7:[address] [facility] CT CHEST/ABD/PELVIS C+on CT CHEST/ABD/PELVIS + [place] [id number] [place], [place] [address] Patient: WALLACE TURK Phone#: : 1965 Age: 57 Gender: M Pt. Type: ER Account: [id number] Location: 052 Ordering: ANABELA KNOX Exam Date: 05/31/2023/18:19 Family Phys: Charge Code: 448515 Physician: Meriwether Order #: [id number] Dose#: 42.9 mGy PROCEDURE: CT CHEST/ABD/PELVIS W [...] Nonobstructing left lower pole renal calculi, a sales representative leather goods stone measures 0.4 cm. There are at least 4 stones present. ADRENALS: Normal. No mass or enlargement. AORTA/VASCULAR: No aortic aneurysm. Atherosclerotic calcifications of the aorta and branch vessels. Continued Report - Page 2 of 2 Patient: WALLACE TURK Phone#: : 1965 Age: 57 Gender: M Pt. Type: ER Account: [id number] Location: 052 Ordering: ANABELA KNOX Exam Date: 05/31/2023/18:19 Family Phys: Charge Code: 912737 Physician: Meriwether Order #: [id number] Dose#: 42.9 mGy RETROPERITONEUM: Normal. No mass [...] on 06/01/2023 at 7:44 Approved by: Maddison Helton MD on 06/01/2023 at 7:[address] [facility] KNEE COMPLETE LT MIN 4 VIEWS on 05-31-2023 KNEE COMPLETE LT MIN 4 VIEWS [place] [address] Patient: WALLACE TURK Phone#: : 1965 Age: 57 Gender: M Pt. Type: ER Account: [id number] Location: [facility] Ordering: DR. QIAN MAGAÑA Exam Date: 05/31/2023/20:15 Family Phys: OSWALD QUARLES Charge Code: 341873 Physician: Meriwether Order #: [id number] Dose#: PROCEDURE: X-RAY KNEE LT COMPLETE 4 [...] Carcamo MD on 06/01/2023 at 17:[address] [facility] TROPONIN I, HIGH SENSITIVITY on 05-31-2023 HS TROPONIN 4.4 pg/mL Normal 0.0 - 76.[address] [facility] Comment on above: Performed By: #### 2 67046 #### [facility],[address] [place] [address] CNPNon 12-30-2022 CNPN Telephone (CAWSTR) ----- WALLACE TURK ([id number]) 1965 M Date Time Provider Department 12/30/22 VERONICA CHENG During your visit today, we recorded the following information about you: Mayra Ivey RN 12/30/2022 11:22 AM Signed ----- Message from Veronica Cheng APRN.MANAGER WINTER sent at 12/30/2022 10:07 AM EDT ----- [...] Status:Closed by MAYRA IVEY on 12/30/22 Normal [facility] CNOVon 12-26-2022 CNOV Office Visit (CARDWS ) ----- WALLACE TURK ([id number]) 1965 M Date Time Provider Department 12/26/22 3:30 PM ECHOCARDIOGRAM WSTR CARDWS During your visit today, we recorded the following information about you: Veronica Cheng APRN.MANAGER WINTER 12/30/2022 10:07 AM Signed Please call patient and notify him of normal results. Echocardiogram was completed in follow-up from stress test. Echocardiogram reveals normal EF 56% and normal wall motion. Pumping strength of the heart is good no further cardiac work-up. Thank you! Referring Provider: VERONICA CHENG [[id number]] Allergies As of Date: 12/26/2022 Noted Allergy Reaction CUCUMBER 02/25/2014 9 - Itching WATERMELON 02/15/2014 7 - Swelling LIPITOR (ATORVASTATIN CALCIUM) 01/17/2015 14 - Other: See Comments Comments: Muscle aches Date Reviewed: 12/19/2022 Reviewed by: Oswald Quarles MD - Fully Assessed Visit Diagnosis:Coronary artery disease due to lipid rich plaque [I25.10, I25.83] Order(s):ECHO [449866] Reflex Order#: [id number] (Ord#:[id number])Spec. 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 Jordyn 12-19-2022 [facility] Telephone (FAMPWS) ----- WALLACE TURK ([id number]) 1965 M Date Time Provider Department 12/19/22 [...] Status:Closed by OSWALD QUARLES on 12/19/22 Normal [facility] Basic metabolic 2000 panelon 12-18-2022 Anion gap [Moles/Vol] 9 mmol/L Normal 9-18 [facility] Comment on above: Order Comment: Speci men Type: BLOOD SPECIMENOrdering Facility: [facility] Address: [address] [place] [id number] Performed By: #### 2 4321-2, LIPNF ####[facility] LABCLIA [id number] [facility] [place] [place] [address] [place] Calcium [Mass/Vol] 9.2 mg/dL Normal 8.5-10.2 [facility] Comment on above: Order Comment: Speci men Type: BLOOD SPECIMENOrdering Facility: [facility] Address: [address] [place], [place] [address] Performed By: #### 2 4321-2, LIPNF ####[facility] LABCLIA [id number] [place] [address] [place] Chloride [Moles/Vol] 104 mmol/L Normal 97-105 [facility] Comment on above: Order Comment: Speci men Type: BLOOD SPECIMENOrdering Facility: [facility] Address: [address] [place], [place] [address] Performed By: #### 2 4321-2, LIPNF ####[facility] LABCLIA [id number] [place] [address] [place] CO2 [Moles/Vol] 26 mmol/L Normal 22-30 [facility] Comment on above: Order Comment: Speci men Type: BLOOD SPECIMENOrdering Facility: [facility] Address: [address] [place] [address] Performed By: #### 2 4321-2, LIPNF ####[facility] LABCLIA [id number] [place] [address] [place] Creatinine [Mass/Vol] 0.86 mg/dL Normal 0.73-1.22 [facility] Comment on above: Order Comment: Speci men Type: BLOOD SPECIMENOrdering Facility: [facility] Address: [address] [place], [place] [address] Performed By: #### 2 4321-2, LIPNF ####[facility] LABCLIA [id number] [place] [address] [place] ESTIMATED GLOMERULAR FILTRATION RATE 102 mL/min/1.73m??? Normal >=60 [facility] Comment on above: Order Comment: Speci men Type: BLOOD SPECIMENOrdering Facility: [facility] Address: [address] [place], [place] [address] Result Comment: Gerri mated Glomerular Filtration Rate [...] GFR. Performed By: #### 2 4321-2, LIPNF ####[facility] LABCLIA [id number] [place] [address] [place] Glucose [Mass/Vol] 169 mg/dL High 74-99 [facility] Comment on above: Order Comment: Speciram mckee Type: BLOOD SPECIMENOrdering Facility: [facility] Address: [address] [place] [address] Result Comment: The [place] Diabetes Association (ADA) provides guidance for cutoff [...] Standards of Medical Care in Diabetes 2016, [place] Diabetes Association. Diabetes Care. 2016.39(Suppl 1). Performed By: #### 2 4321-2, LIPNF ####[facility] LABIA [id number] [place] [address] [place] Potassium [Moles/Vol] 5.1 mmol/L Normal 3.7-5.1 [facility] Comment on above: Order Comment: Curtis mckee Type: BLOOD SPECIMENOrdering Facility: [facility] Address: [address] [place] [address] Performed By: #### 2 4321-2, LIPNF ####[facility] LABIA [id number] [place] [address] [place] Sodium [Moles/Vol] 139 mmol/L Normal 136-144 [facility] Comment on above: Order Comment: Speci men Type: BLOOD SPECIMENOrdering Facility: [facility] Address: [address] [place] [address] Performed By: #### 2 4321-2, LIPNF ####[facility] LABIA [id number] [address] [place] Urea nitrogen [Mass/Vol] 18 mg/dL Normal 9-24 [facility] Comment on above: Order Comment: Speci men Type: BLOOD SPECIMENOrdering Facility: [facility] Address: [address] [place] [address] Performed By: #### 2 4321-2, LIPNF ####[facility] LABIA [id number] [address] [place] CNOVon 12-18-2022 CNOV Office Visit (FAMPWS ) ----- BURKEWALLACE Hodge ([id number]) 1965 M Date Time Provider Department 12/18/22 [...] lipid rich plaque 05/10/2015 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 Has 3 stents Diabetic eye exam [...] Diabetes Mother Coronary Artery Disease Mother of [place] at 70 Lipids Mother Stroke Mother Diabetes Father Alzheimer's Disease Paternal Grandfather Patient Allergies ALLERGIES Allergen Reactions [place] Itching Watermelon Swelling Lipitor [Atorvastat* Other: See [...] daily. Take with food. flash glucose sensor (Collective EDUARDO 14 DAY SENSOR) kit Use to [...] reflux symptoms (more content not included)... Normal [facility] HbA1c (Bld)on 12-18-2022 Average glucose Estimated from glycated hemoglobin (Bld) [Mass/Vol] 197 mg/dL Normal [facility] Comment on above: Order Comment: Curtis mckee Type: BLOOD SPECIMENOrdering Facility: [facility] Address: [address] [place] [address] Result Comment: eAG: (Estimated average glucose) is a calculated value from HgbA1c and is sales representative leather goods of the average blood glucose level in the last 2-3 month period. Performed By: #### 5 5454-3 ####[facility] LABCLIA [id number] [address] [place] HbA1c (Bld) [Mass fraction] 8.5 % High 4.3-5.6 [facility] Comment on above: Order Comment: Curtis mckee Type: BLOOD SPECIMENOrdering Facility: [facility] Address: [address] [place] [address] Result Comment: Amer [place] Diabetes Association guidelines indicate that patients with HgbA1c in the range 5.7-6.4% are at increased risk for development of diabetes, and intervention by lifestyle modification may be beneficial. HgbA1c greater or equal to 6.5% is considered diagnostic of diabetes. Performed By: #### 5 5454-3 ####[facility] LABIA [id number] [place] [address] [place] LIPID PANEL, NONFASTINGon Cholesterol [Mass/Vol] 115 mg/dL Normal <200 [facility] Comment on above: Order Comment: Curtis rafi Type: BLOOD SPECIMENOrdering Facility: [facility] Address: [address] [place] [address] Result Comment: <200 mg/dL, Desirable 200-239 mg/dL, Borderline high >239 mg/dL, High Performed By: #### 2 4321-2, LIPNF ####[facility] LABIA [id number] [address] [place] HDL CHOLESTEROL, NF 43 mg/dL Normal >39 [facility] Comment on above: Order Comment: Curtis men Type: BLOOD SPECIMENOrdering Facility: [facility] Address: [address] [address] Result Comment: 40-5 9 mg/dL, Acceptable >59 mg/dL, High: Negative risk factor for coronary heart disease <40 mg/dL, Low: Positive risk factor for coronary heart disease Performed By: #### 2 4321-2, LIPNF ####[facility] LABCLIA [id number] [address] OF [facility] LDL CHOLESTEROL, NF 56 mg/dL Normal <100 [facility] Comment on above: Order Comment: Speci rafi Type: BLOOD SPECIMENOrdering Facility: [facility] Address: [address] [address] Result Comment: <100 mg/dL, Optimal 100-129 mg/dL, Near optimal/above optimal 130-159 mg/dL, Borderline high 160-189 mg/dL, High >189 mg/dL, Very high Secondary prevention optimal LDL Cholesterol levels are recommended to be < 70 mg/dL Performed By: #### 2 4321-2, LIPNF ####[facility] LABCLIA [id number] [address] LDL/HDL RATIO, NF 1.30 mg/dL Normal <2.54 [facility] Comment on above: Order Comment: Curtis mckee Type: BLOOD SPECIMENOrdering Facility: [facility] Address: [address] [place] [address] Result Comment: Refe rence: 1. National Cholesterol Education Program ATP III Guideline At-A-Glance Quick Desk Reference: National Heart, Lung, and Blood [place]. National Institutes of Health. 2001: NIH Publication No. 01-3305. 2. An International Atherosclerosis Society position paper: global recommendations for the management of dyslipidemia: executive summary, Atherosclerosis. 2014: 232(2):410-413. Performed By: #### 2 4321-2, LIPNF ####[facility] LABCLIA [id number] [address] [place] NON HDL CHOL, NF 72 mg/dL Normal <130 [facility] Comment on above: Order Comment: Speci men Type: BLOOD SPECIMENOrdering Facility: [facility] Address: [address] [place] [address] Result Comment: <130 mg/dL, Optimal 130-159 mg/dL, Near optimal/above optimal 160-189 mg/dL, Borderline high 190-219 mg/dL, High >219 mg/dL, Very high Secondary prevention optimal non HDL Cholesterol levels are recommended to be <100 mg/dL Performed By: #### 2 4321-2, LIPNF ####[facility] LABCLIA [id number] [address] OF [facility] T CHOL/HDL RATIO NF 2.67 mg/dL Normal <5.10 [facility] Comment on above: Order Comment: Speci men Type: BLOOD SPECIMENOrdering Facility: [facility] Address: [address] [place] [address] Performed By: #### 2 4321-2, LIPNF ####[facility] LABCLIA [id number] [address] TRIGLYCERIDES, NF 82 mg/dL Normal <150 [facility] Comment on above: Order Comment: Speci men Type: BLOOD SPECIMENOrdering Facility: [facility] Address: [address] [place] [address] Result Comment: <150 mg/dL, Normal 150-199 mg/dL, Borderline high 200-499 mg/dL, High >499 mg/dL, Very high Performed By: #### 2 4321-2, LIPNF ####[facility] LABCLIA [id number] [address] VLDL CHOLESTEROL, NF 16 mg/dL Normal <30 [facility] Comment on above: Order Comment: Speci men Type: BLOOD SPECIMENOrdering Facility: [facility] Address: [address] [place] [address] Performed By: #### 2 4321-2, LIPNF ####[facility] LABCLIA [id number] [address] [place] Urinalysis complete panel (U )on 12-18-2022 Bilirubin Ql (U) Negative Normal Negative [facility] Comment on above: Order Comment: Speci men Type: URINE SPECIMENOrdering Facility: [facility] Address: [address] [place] [address] Performed By: #### 2 4356-8 ####[facility] LABCLIA [id number] [address] [place] Clarity (Unsp spec) Clear Normal Clear [facility] Comment on above: Order Comment: Speci men Type: URINE SPECIMENOrdering Facility: [facility] Address: [address] [place] [address] Performed By: #### 2 4356-8 ####[facility] LABCLIA [id number] [address] STATES OF [facility] Color (U) Light Yellow Normal Yellow [facility] Comment on above: Order Comment: Speci men Type: URINE SPECIMENOrdering Facility: [facility] Address: [address] [place] [address] Performed By: #### 2 4356-8 ####[facility] LABCLIA [id number] [place] [address] [place] Glucose Test strip (U) [Mass/Vol] 1+ Abnormal Trace, Negative [facility] Comment on above: Order Comment: Speci men Type: URINE SPECIMENOrdering Facility: [facility] Address: [address] [place] [address] Performed By: #### 2 4356-8 ####[facility] LABCLIA [id number] [place] [address] [place] Hemoglobin Ql (U) Negative Normal Negative, Trace [facility] Comment on above: Order Comment: Speci men Type: URINE SPECIMENOrdering Facility: [facility] Address: [address] [address] Performed By: #### 2 4356-8 ####[facility] LABCLIA [id number] [place] [address] [place] Ketones Ql (U) Negative Normal Trace, Negative [facility] Comment on above: Order Comment: Speci men Type: URINE SPECIMENOrdering Facility: [facility] Address: [address] [place] [address] Performed By: #### 2 4356-8 ####[facility] LABCLIA [id number] [place] [address] [place] Leukocyte esterase Test strip Ql (U) Negative Normal Negative, 25 Elizabet/uL [facility] Comment on above: Order Comment: Speci men Type: URINE SPECIMENOrdering Facility: [facility] Address: [address] [place] [address] Performed By: #### 2 4356-8 ####[facility] LABCLIA [id number] [place] [address] [place] Nitrite Ql (U) Negative Normal Negative [facility] Comment on above: Order Comment: Speci men Type: URINE SPECIMENOrdering Facility: [facility] Address: [address] [place] [address] Performed By: #### 2 4356-8 ####[facility] LABCLIA [id number] [place] [address] [place] pH (U) 6.0 [pH] Normal 5.0-8.0 [facility] Comment on above: Order Comment: Speci men Type: URINE SPECIMENOrdering Facility: [facility] Address: [address] [place] [address] Performed By: #### 2 4356-8 ####[facility] LABCLIA [id number] [place] [address] [place] Protein (U) [Mass/Vol] Negative Normal Trace , Negative [facility] Comment on above: Order Comment: Speci men Type: URINE SPECIMENOrdering Facility: [facility] Address: [address] [place] [address] Performed By: #### 2 4356-8 ####[facility] LABCLIA [id number] [place] [address] [place] RBC LM.HPF (Urine sed) [#/Area] 0-3 /HPF Normal 0-3 /HPF [facility] Comment on above: Order Comment: Speci men Type: URINE SPECIMENOrdering Facility: [facility] Address: [address] [place] [address] Performed By: #### 2 4356-8 ####[facility] LABIA [id number] [place] [address] [place] Specific gravity (U) [Rel density] 1.025 Normal 1.005-1.03 0 [facility] Comment on above: Order Comment: Speci men Type: URINE SPECIMENOrdering Facility: [facility] Address: [address] [place] [address] Performed By: #### 2 4356-8 ####[facility] LABIA [id number] [place] [address] [place] SPERM Present Abnormal None Seen [facility] Comment on above: Order Comment: Speci men Type: URINE SPECIMENOrdering Facility: [facility] Address: [address] [place], [place] [address] Performed By: #### 2 4356-8 ####[facility] LABCLIA [id number] [place] [address] [place] Urobilinogen Ql (U) Negative Normal Negative [facility] Comment on above: Order Comment: Speci men Type: URINE SPECIMENOrdering Facility: [facility] Address: [address] [place] [address] Performed By: #### 2 4356-8 ####[facility] LABCLIA [id number] [address] [place] WBC LM.HPF (Urine sed) [#/Area] 0-5 /HPF Normal 0-5 /HPF [facility] Comment on above: Order Comment: Speci men Type: URINE SPECIMENOrdering Facility: [facility] Address: [address] [id number] Performed By: #### 2 4356-8 ####[facility] LABCLIA [id number] [address] [place] CNPNon 12-17-2022 CNPN Telephone (CAWSTR) ----- WALLACE TURK ([id number]) 1965 M Date Time Provider Department 12/17/22 VERONICA CHENG During your visit today, we recorded the following information about you: Mayra Ivey RN 12/17/2022 2:36 PM Signed ----- Message from Veronica Cheng APRN.MANAGER WINTER sent at 12/17/2022 1:57 PM EDT ----- [...] Signed Pt. notified. Voices understanding. Transferred to [facility] for scheduling. Mayra Ivey RN Allergies As [...] Status:Closed by MAYRA IVEY on 12/17/22 Normal [facility] CARDIAC PERF STRESS/EXERC ISEon 12-16-2022 NM CARDIAC PERF STRESS/EXERCISE * * *Final Report* * * DATE OF EXAM: Dec 16 2022 9:50AM WON 0004 - NM CARDIAC PERF STRESS/EXERCISE / PROCEDURE REASON: multiple diagnoses * * * * Physician Interpretation * * * * Stress ECG Report: [facility] Date of service: 12/16/2022 6:35:43 AM Ordering physician: VERONICA CHENG health information specialist: La Rebolledo RN Interpreting physician: David [...] mmHg. The patient exercised according to the [place] 10% protocol. The estimated end-exercise MET level [...] 190/88 mmHg. The double product achieved was 01557. Previous cardiovascular interventions: PCI (05/24) Medications: Last [...] (HRR): 19 bpm Rate Pressure Product (RPP): 71520 Stress Exercise Observations: Reason for test termination: [...] equation for determining estimated MET values for [facility] stress tests changed. Comparison of test results before and after that date may show a change in estimated MET values for peak/max exercise despite a test duration that is similar in length. The validity of the new FRIEND equation for exercise METS is endorsed by the [place] [employer]. Oksana P, Parth [place], Cande R, Ernesto J, Scout J. New Generalized Equation for Predicting Maximal Oxygen Uptake (from the Fitness Registry and the Importance of Exercise National Database). The [place] Journal of Cardiology. 2017;120(4):688-692). * * * Final * * * PATIENT: Name: MR. WALLACE TURK Age: 57 years Gender: (more content not included)... Normal [facility] Panel Informationon 12-16 [facility] CNOVon 10-28-2022 CNOV Office Visit (CAWSTR ) ----- WALLACE TURK ([id number]) 1965 M Date Time Provider Department 10/28/22 9:30 AM VERONICA CHENG During your visit today, we recorded the following information about you: Temperature Pulse Blood pressure Weight 88 degrees 84/minute 130/80 98 kg Veronica Cheng APRN.MANAGER WINTER 10/28/2022 10:34 AM [facility]igned [facility] ([facility]) [address] [facility] [id number] OUTPATIENT VISIT October 28, 2022 9:30 AM Chief Complaint Patient presents with: Consult History of Present Illness: Wallace Turk is a very pleasant 57 year old male who presents to establish cardiology care. He has a past medical history of CAD (status post 3 drug-eluting stents to his LAD May 2012 for abnormal stress testing at [facility]), hypertension, hyperlipidemia, DM2 and obesity. He previously followed with cardiology office in [facility] for the past few years. 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 He also completes intentional aerobic exercise. He [...] lipid rich plaque 05/10/2015 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 Has 3 stents Diabetic eye exam [...] Diabetes Mother Coronary Artery Disease Mother of [place] at 70 Lipids Mother Stroke Mother Diabetes [...] family history of CAD ALLERGIES Allergen Reactions [place] Itching Watermelon Swelling Lipitor [Atorvastat* Other: See [...] for chest (more content not included)... Normal [facility] ECG COMPLETEon 10-28-2022 ECG COMPLETE Ventricular Rate : 7 7 BPM Atrial Rate : 77 BPM P-R Interval : 172 ms QRS Duration : 104 ms Q-T Interval : 378 ms QTC Calculation(Bazett) : 427 ms Calculated P [place] : 50 degrees Calculated R [place] : 40 degrees Calculated T [place] : 53 degrees NORMAL SINUS RHYTHM NORMAL ECG Confirmed by ROMEO ROMERO DO ([id number]) on 10/29/2022 7:56:46 PM NAME : WALLACE TURK PID : [id number] : 1965 Gender : Male Race : ORD : [id number] Procedure Date : Oct 28 2022 09:41:12 Edit Date : Oct 29 2022 19:56:49 Diagnosis: NORMAL SINUS RHYTHM NORMAL ECG Confirmed by ROMEO ROMERO DO ([id number]) on 10/29/2022 7:56:46 PM Test Reason : Location : 136 : [facility] Overread By : ROMEO ROMERO DO Edited By : ROMEO ROMERO DO Referred By : VERONICA CHENG Acquired by : Jane sarah [facility] ANKLE COMPLETE RTon 10-11-19 23 ANKLE COMPLETE RT [place] [address] Patient: WALLACE TURK Phone#: : [phone] Age: 57 Gender: M Pt. Type: Out Account: [id number] Location: Ordering: [place] Exam Date: 10/10/2022/16:13 Family Phys: OSWALD QUARLES Charge Code: [id number] Physician: Meriwether Order #: [id number] Dose#: PROCEDURE: X-RAY ANKLE COMPLETE RT MIN [...] Helton MD on 10/10/2022 at 16:[address] [facility] Estradiol SerPl-mCncon 03-08 E2 [Mass/Vol] pg/mL Normal <38 [facility] Comment on above: Order Comment: Curtis mckee Type: BLOOD SPECIMEN Ordering Facility: [facility] Address: [address] [place] [address] Result Comment: This test is not suitable for patients receiving treatment with the drug Fulvestrant (Faslodex). The drug causes an interference leading to falsely elevated estradiol results. Performed By: #### 1 0501-5, 2243-4, 2842-3 #### [facility] CLIA [id number] [address] [place] [address] [place] LH SerPl-aCncon 03-08-2022 Lutropin Qn 3.8 m[IU]/mL Normal 1.8-10.8 [facility] Comment on above: Order Comment: Curtis mckee Type: BLOOD SPECIMEN Ordering Facility: [facility] Address: [address] [place] [address] Performed By: #### 1 0501-5, 2243-4, 2842-3 ####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 Oswald Quarles MD Work Phone: Start: 03-15-2025 History of coronary artery bypass grafting S/P CABG (coronary artery bypass graft) Hossein Ferreirajens SIMMONS - MANAGER WINTER Work Phone: Start: 03-08-2025 Glucose quantitative blood xcpt reagent strip Jewel Lane MD Work Phone: Start: 03-08-2025 Glucose quantitative blood xcpt reagent strip Jewel Lane MD Work Phone: Start: 03-08-2025 Basic metabolic pane l calcium total Hossein Ferreirajens SIMMONS - MANAGER WINTER Work Phone: Start: 03-08-2025 Radiologic exam ches t single view Hossein Ferreirajens SIMMONS - MANAGER WINTER Work Phone: Start: 03-07-2025 Glucose quantitative blood [...] t single view Hossein Romero APRN - MANAGER WINTER Work Phone: Start: 03-07-2025 Basic metabolic pane l calcium total Hossein Romero APRN - MANAGER WINTER Work Phone: Start: 03-06-2025 Glucose quantitative blood [...] only w/o i&r Hossein Romero APRN - MANAGER WINTER Work Phone: Start: 03-06-2025 Radiologic exam ches t single view Hossein Romero APRN - MANAGER WINTER Work Phone: Start: 03-06-2025 Basic metabolic pane l calcium total Hossein Romero APRN - MANAGER WINTER Work Phone: Start: 03-05-2025 Glucose quantitative blood [...] only w/o i&r Hossein Nick SIMMONS - MANAGER WINTER Work Phone: Start: 03-05-2025 Radiologic exam ches t single view Hossein Nick SIMMONS - MANAGER WINTER Work Phone: Start: 03-05-2025 End: 03-05-2025 Glucose quantitative blood xcpt reagent strip Jewel Lane MD Work Phone: Start: 03-05-2025 End: 03-05-2025 Glucose quantitative blood xcpt reagent strip Jewel Lane MD Work Phone: Start: 03-05-2025 End: 03-05-2025 Basic metabolic panel calcium total Hossein Nick SIMMONS - MANAGER WINTER Work Phone: Start: 03-04-2025 End: 03-04-2025 Glucose [...] metabolic panel calcium total Nav ChavezLori Banda LAUNDRY HOUSEKEEPING AIDE - MANAGER WINTER Work Phone: Start: 03-04-2025 Echo transesophag r- t 2d w/prb img acquisj i&r Hossein Romero APRN - MANAGER WINTER Work Phone: Start: 03-04-2025 Radiologic exam ches t single view Hossein Romero APRN - MANAGER WINTER Work Phone: Start: 03-04-2025 End: 03-04-2025 Basic metabolic panel calcium total Hossein Romero APRN - MANAGER WINTER Work Phone: Start: 03-04-2025 Blood gases any comb ination ph pco2 po2 co2 hco3 Hosseni Romero APRN - MANAGER WINTER Work Phone: Start: 03-04-2025 Ecg routine ecg w/le ast 12 lds trcg only w/o i&r Hossein Romero APRN - MANAGER WINTER Work Phone: Start: 03-04-2025 Blood gases any [...] reference interval is for fasting patients.Performed at: [address] [id number] Director: Nadir Mock PhD, Phone: [phone] Start: 02-25-[address] Christiano Qualres MD Work Phone: Comment on above: Test Ordered: [id number] MICHELLE-65 AutoantibodyGAD-65 <5.0 U/mL BN Reference Range: 0.0-5.0Performed at: [address] [id number] Director: Sana Manuel MD, Phone: [phone] at: [place] [id number] [place], [place] [id number] Director: Nadir Mock PhD, Phone: [phone] Test Ordered: [id number] IA-2 AutoantibodiesIA-2 Autoantibodies <7.5 U/mL ES Reference Range: .Reference Range:<7.5 Negative> or = 7.5 PositivePerformed at: - [facility] [address] [id number] Director: Magdi Monzon MD, Phone: [phone] at: [place] [id number] [place], [place] [id number] Director: Nadir Mock PhD, Phone: [phone] Test Ordered: [id number] ZNT8 AntibodiesZNT8 Antibodies <15 U/mL ES Reference Range: .Reference Range:All Ages:<15 Negative> or =15 PositivePerformed at: - [facility] [address] [id number] Director: Magdi Monzon MD, Phone: [phone] at: [place] [id number] [place], [place] [id number] Director: Nadir Mock PhD, Phone: [phone] Start: 02-25-2025 Urine microalbumin/creatinine ratio measurement Dr. [...] ches t 2 views Crystal Janee Mario LAUNDRY HOUSEKEEPING AIDE - MANAGER WINTER Work Phone: Start: 02-24-2025 Antibody screen [facility] Comment on above: Performed By: #### L [id number] ####Mold Laminator: EDVIN HAYS ([id number])[facility] BLOOD [facility] ([facility])[address] [place] [address] Start: 02-24-2025 End: 02-24-2025 Glucose post glucose [...] w/ wom-mode compl spec&colr d Veronica Cheng APRN.MANAGER WINTER Work Phone: Start: 12-16-2022 Myocardial spect mul tiple studies Veronica Cheng APRN.MANAGER WINTER Work Phone: Start: 08-14-2022 INFLUENZA VACCINE QUADRIVALENT 6 MO - 64 YRS IM Oswald Quarles MD Work Phone: Start: 03-08-2022 Urnls dip stick/tabl et rgnt auto w/o microscopy Akira Li MD Work Phone: Start: 01-30-2022 Hemoglobin A1c/Hemoglobin.total in Blood Oswald Quarles MD Work Phone: Start: 01-30-2022 Adult depression scr eening assessment Oswald Quarles MD Work Phone: Start: 09-21-2018 Adult depression scr eening assessment Debra Yun LAUNDRY HOUSEKEEPING AIDE.MANAGER WINTER Work Phone: Start: 01-13-2018 Colonoscopy Debra Jensen APRN.MANAGER WINTER Work Phone: Plan of Treatment Date Care Activity Detail Author Start: 2042 RSV Immunization for Adults (1 - 1-dose 75+ series) RSV Immunization for Adults (1 - 1-dose 75+ series) [facility] Start: 2032 PNEUMOCOCCAL (3 - PPSV23 if available, else PCV20) PNEUMOCOCCAL (3 - PPSV23 if available, else PCV20) [facility] Start: 2032 PNEUMOCOCCAL (3 - PPSV23 or PCV20) PNEUMOCOCCAL (3 - PPSV23 or PCV20) [facility] Start: 2032 Pneumococcal vaccination Pneumococcal Vaccine (3 - PPSV23 or PCV20) [facility] Start: 09-10-2028 Prostate specific antigen measurement Prostate Cancer Screening Discussion [facility] Start: 01-14-2028 Colonoscopy COLONOSCOPY [facility] Start: 01-14-2028 COLORECTAL CANCER SCREENING COLORECTAL CANCER SCREENING [facility] Start: 01-14-2028 Screening for malignant neoplasm of colon [facility] Start: 09-12-2027 PROSTATE CANCER SCREENING DISCUSSION PROSTATE CANCER SCREENING DISCUSSION [facility] Start: 07-30-2026 PROSTATE CANCER SCREENING DISCUSSION PROSTATE CANCER SCREENING DISCUSSION [facility] Start: 03-14-2026 End: 03-14-2026 Patient encounter procedure 03/14/2026 7:40 AM EDT Office Visit [facility] [address] [place] [address] Martell Guthrie MD [address] [place] [id number] [facility] Start: 03-08-2026 Diabetes: Estimated Glomerular Filtration Rate for Kidney Health Diabetes: Estimated Glomerular Filtration Rate for Kidney Health [facility] Start: 03-04-2026 Diabetes: Estimated Glomerular Filtration Rate for Kidney Health Diabetes: Estimated Glomerular Filtration Rate for Kidney Health [facility] Start: 02-25-2026 Diabetes: Urine Albumin-Creatinine Ratio for Kidney Health Diabetes: Urine Albumin-Creatinine Ratio for Kidney Health [facility] Start: 02-25-2026 Lipid panel Lipid Panel [facility] Start: 02-24-2026 Diabetes: Estimated Glomerular Filtration Rate for Kidney Health Diabetes: Estimated Glomerular Filtration Rate for Kidney Health [facility] Start: 02-24-2026 Hemoglobin A1c measurement Diabetes: Hemoglobin A1C [facility] Start: 11-24-2025 End: 11-24-2025 Patient encounter procedure 11/24/2025 7:30 AM EDT Office Visit [facility] [address] [place] [address] Richard Marquez, PA-C [address] [place] [address] [facility] Start: 08-29-2025 End: 08-29-2025 Patient encounter procedure 08/29/2025 7:30 AM EST Office Visit [facility] [address] [place] [address] Richard Marquez, RANDEE-C [address] [place] [address] [facility] Start: 05-27-2025 End: 05-27-2025 Patient encounter procedure 05/27/2025 7:30 AM EST Office Visit [facility] [address] [place] [address] Richard Marquez PA-C [address] [place] [address] [facility] Start: 04-04-2025 End: 04-04-2025 Telemedicine consultation with patient 04/04/2025 12:00 PM EDT Telemedicine [facility] Cardiovascular Thoracic Surgery - [place] [address] [facility] [address] [place] [id number] Hossein Romero, TROY - MANAGER WINTER [address] [place] [address] [facility] Cardiovascular Thoracic Surgery [facility] Start: 03-18-2025 [facility] Start: 03-17-2025 Referral to production team member [facility] Start: 03-17-2025 Care regimes management [facility] Start: 03-17-2025 Notification of physician [facility] Start: 03-17-2025 Oxygen therapy [facility] Start: 03-17-2025 Tobacco use cessation education [facility] Start: 03-17-2025 End: 03-17-2025 [facility] Start: 03-17-2025 Admission procedure [facility] Start: 03-17-2025 Assessment of risk of venous thromboembolism [facility] Start: 03-17-2025 Continuous pulse oximetry [facility] Start: 03-17-2025 Insertion of catheter into peripheral vein [facility] Start: 03-17-2025 Measuring intake and output [facility] Start: 03-17-2025 Providing care according to standard [facility] Start: 03-17-2025 Vital signs measurements [facility] Start: 03-17-2025 Verification routine [facility] Start: 03-17-2025 Following clinical pathway protocol [facility] Start: 03-17-2025 End: 03-17-2025 [facility] Start: 03-17-2025 Hospital admission, emergency, from emergency room, medical nature [facility] Start: 03-17-2025 Partial thromboplastin time, activated [facility] Start: 03-17-2025 Prothrombin time [facility] Start: 03-17-2025 Plain chest X-ray Chest 1 View (Portable) [facility] Start: 03-17-2025 [facility] Start: 03-17-2025 Patient referral to dietitian [facility] Start: 03-15-2025 End: 03-15-2025 Patient encounter procedure 03/15/2025 11:30 AM EDT Office Visit [facility] Cardiovascular Thoracic Surgery [facility] [address] [place] [id number] Hossein Romero, LAUNDRY HOUSEKEEPING AIDE - MANAGER WINTER [address] [address] [facility] Cardiovascular Thoracic Surgery [facility] Start: 03-14-2025 COVID-19 Vaccine ( season) COVID-19 Vaccine ( season) [facility] Start: 03-14-2025 Influenza vaccination Influenza Vaccine (#1) [facility] Start: 03-04-2025 End: 03-04-2025 Admission to same day surgery center [facility] Comment on above: CORONARY ARTERY BYPASS GRAFT [34778 (CPT )] Start: 03-04-2025 End: 03-04-2025 Anesthesia consultation 03/04/2025 7:00 AM EDT Anesthesia Event [facility] [address] [place] [id number] Antwon Copeland, LAUNDRY HOUSEKEEPING AIDE - LOAN WORKOUT OFFICER [address] [place] [address] [facility] Start: 03-04-2025 End: 03-04-2025 Cabg w/arterial graft three arterial grafts [facility] Operating Room Start: 03-04-2025 End: 03-04-2025 Echo transesophag r-t 2d w/prb img acquisj i&r [facility] Operating Room Start: 03-04-2025 Subsequent hospital visit by physician [facility] Start: 02-28-2025 End: 02-28-2025 Admission to same day surgery center 02/28/2025 7:30 AM EDT - 02/28/2025 12:30 PM EDT Surgery [facility] [address] [place] [id number] [facility] [address] [place] [id number] CORONARY ARTERY BYPASS GRAFT [06929 (CPT )] [facility] Comment on above: CORONARY ARTERY BYPASS GRAFT [92041 (CPT )] Start: 02-28-2025 End: 02-28-2025 Anesthesia consultation [facility] Start: 02-28-2025 End: 02-28-2025 Cabg w/arterial graft three arterial grafts CORONARY ARTERY BYPASS GRAFT Atherosclerotic heart disease of [place] coronary artery with other forms of angina pectoris (HCC) 02/28/2025 7:30 AM EDT [facility] Operating Room Start: 02-28-2025 End: 02-28-2025 Echo transesophag r-t 2d w/prb img acquisj i&r ECHOCARDIOGRAM, TRANSESOPHAGEAL Atherosclerotic heart disease of [place] coronary artery with other forms of angina pectoris (HCC) 02/28/2025 7:30 AM EDT [facility] Operating Room Start: 02-28-2025 Subsequent hospital visit by physician 02/28/2025 7:30 AM EDT Hospital Encounter [facility] MAIN OR [address] [place] [address] MD [address] [place] [address] [facility] MAIN OR Start: 02-25-2025 Procedure [facility] Start: 02-24-2025 End: 02-24-2026 25-hydroxyvitamin D3 [Mass/volume] in Serum or Plasma Vitamin D Deficiency Screening (Vit D 25) Lab Routine Type 2 diabetes mellitus with hyperglycemia, without long-term current use of insulin (HCC) Expected: 02/24/2025 (Approximate), Expires: 02/24/2026 [employer] Comment on above: Expected: 02/24/2025 (Approximate), Expi res: 02/24/2026 Start: 02-24-2025 End: 02-24-2026 C-Peptide C-Peptide Lab Routine Type 2 diabetes mellitus with hyperglycemia, without long-term current use of insulin (HCC) Expected: 02/24/2025 (Approximate), Expires: 02/24/2026 [employer] Comment on above: Expected: 02/24/2025 (Approximate), Expi res: 02/24/2026 Start: 02-24-2025 End: 02-24-2026 Comprehensive metabolic 1998 panel - Serum or Plasma Comprehensive metabolic panel Lab Routine Type 2 diabetes mellitus with hyperglycemia, without long-term current use of insulin (HCC) Expected: 02/24/2025 (Approximate), Expires: 02/24/2026 [employer] Comment on above: Expected: 02/24/2025 (Approximate), Expi res: 02/24/2026 Start: 02-24-2025 End: 02-24-2026 Glucose [Mass/volume] in Serum or Plasma Glucose, random Lab Routine Type 2 diabetes mellitus with hyperglycemia, without long-term current use of insulin (HCC) Expected: 02/24/2025 (Approximate), Expires: 02/24/2026 [facility] [employer] Comment on above: Expected: 02/24/2025 (Approximate), Expi res: 02/24/2026 Start: 02-24-2025 End: 02-24-2026 Glutamic acid decarboxylase (Sendout) Glutamic acid decarboxylase (Sendout) Lab Routine Type 2 diabetes mellitus with hyperglycemia, without long-term current use of insulin (HCC) Expected: 02/24/2025 (Approximate), Expires: 02/24/2026 [facility] [employer] Comment on above: Expected: 02/24/2025 (Approximate), Expi res: 02/24/2026 Start: 02-24-2025 End: 02-24-2026 IA-2 Antibody IA-2 Antibody Lab Routine Type 2 diabetes mellitus with hyperglycemia, without long-term current use of insulin (HCC) Expected: 02/24/2025 (Approximate), Expires: 02/24/2026 [facility] [employer] Comment on above: Expected: 02/24/2025 (Approximate), Expi res: 02/24/2026 Start: 02-24-2025 End: 02-24-2026 Lipid 1996 panel - Serum or Plasma Lipid panel Lab Routine Type 2 diabetes mellitus with hyperglycemia, without long-term current use of insulin (HCC) Expected: 02/24/2025 (Approximate), Expires: 02/24/2026 [facility] [employer] Comment on above: Expected: 02/24/2025 (Approximate), Expi res: 02/24/2026 Start: 02-24-2025 End: 02-24-2026 Microalbumin/Creatinine panel in random Urine Microalbumin / creatinine urine ratio Lab Routine Type 2 diabetes mellitus with hyperglycemia, without long-term current use of insulin (HCC) Expected: 02/24/2025 (Approximate), Expires: 02/24/2026 [facility] [employer] Comment on above: Expected: 02/24/2025 (Approximate), Expi res: 02/24/2026 Start: 02-24-2025 End: 02-24-2026 Thyrotropin [Units/volume] in Serum or Plasma TSH Lab Routine Type 2 diabetes mellitus with hyperglycemia, without long-term current use of insulin (HCC) Expected: 02/24/2025 (Approximate), Expires: 02/24/2026 [facility] Comment on above: Expected: 02/24/2025 (Approximate), Expi res: 02/24/2026 Start: 02-24-2025 End: 02-24-2026 Thyroxine (T4) free [Mass/volume] in Serum or Plasma T4, free Lab Routine Type 2 diabetes mellitus with hyperglycemia, without long-term current use of insulin (HCC) Expected: 02/24/2025 (Approximate), Expires: 02/24/2026 [facility] Comment on above: Expected: 02/24/2025 (Approximate), Expi res: 02/24/2026 Start: 02-24-2025 End: 02-24-2026 Zinc Transporter 8 Antibody Zinc Transporter 8 Antibody Lab Routine Type 2 diabetes mellitus with hyperglycemia, without long-term current use of insulin (HCC) Expected: 02/24/2025 (Approximate), Expires: 02/24/2026 [facility] Work Phone: Comment on above: Expected: 02/24/2025 (Approximate), Expi res: 02/24/2026 Start: 02-24-2025 End: 02-24-2025 Admission to establishment 02/24/2025 1:30 PM EDT Pre-Admission Testing [facility] [address] [place] [id number] [facility] Start: 02-24-2025 End: 02-24-2025 Patient encounter procedure 02/24/2025 11:00 AM EDT Office Visit [facility] [address] [place] [phone] Richard Marquez PA-C [address] [place] [phone] [facility] Start: 02-22-2025 End: 02-22-2025 Patient encounter procedure 02/22/2025 2:20 PM EDT Appointment [facility] [address] [place] [phone] Nadir Leong MD [address] [place] [id number] MD [address] [place] [address] [facility] [address] [facility] Start: 02-07-2025 Patient discharge [facility] Start: 01-19-2025 Evaluation of diagnostic study results [facility] Start: 09-10-2024 Annual PCP Team Chronic Disease Visit Annual PCP Team Chronic Disease Visit [facility] Start: 09-10-2024 BP Controlled (<130/80) BP Controlled (<130/80) [facility] Start: 09-10-2024 Covid-19 Vaccine (#1) Covid-19 Vaccine (#1) [facility] Comment on above: Postponed from 1967 (Declined at t his time) Start: 09-10-2024 Covid-19 Vaccine () Covid-19 Vaccine () [facility] Comment on above: Postponed from 03/14/2023 (Declined at t his time) Start: 09-10-2024 Diabetes: Estimated Glomerular Filtration Rate for Kidney Health Diabetes: Estimated Glomerular Filtration Rate for Kidney Health [facility] Start: 09-10-2024 Diabetes: Urine Albumin-Creatinine Ratio for Kidney Health Diabetes: Urine Albumin-Creatinine Ratio for Kidney Health [facility] Start: 09-10-2024 Diabetic foot examination Diabetic Foot Exam [facility] Start: 09-10-2024 Hemoglobin A1c measurement Diabetes: Hemoglobin A1C [facility] Start: 09-10-2024 Hepatitis B surface antibody level LDL Cholesterol [facility] Start: 09-10-2024 Lipid panel Lipid Panel [facility] Start: 09-10-2024 Shingrix Vaccine (1 of 2) Shingrix Vaccine (1 of 2) [facility] Comment on above: Postponed from 2017 (Insurance Cov erage) Start: 07-13-2024 Behavioral Health Screening Behavioral Health Screening [facility] Comment on above: Postponed from 07/14/2023 (Declined at t his time) Start: 07-13-2024 Depression Assessment Depression Assessment [facility] Comment on above: Postponed from 07/14/2023 (Declined at t his time) Start: 2024 Annual PCP Team Chronic Disease Visit Annual PCP Team Chronic Disease Visit [facility] Start: 2024 BP Controlled (<130/80) BP Controlled (<130/80) [facility] Start: 06-10-2024 Annual PCP Team Chronic Disease Visit Annual PCP Team Chronic Disease Visit [facility] Start: 05-19-2024 DTaP/Tdap/Td Vaccines (2 - Td or Tdap) DTaP/Tdap/Td Vaccines (2 - Td or Tdap) [facility] Start: 05-19-2024 Urine microalbumin profile [facility] Start: 04-13-2024 End: 07-13-2024 ALBUMIN/CREAT RATIO RND UR ALBUMIN/CREAT RATIO RND UR Lab Routine Poorly controlled type 2 diabetes mellitus (HCC) Expected: 04/13/2024, Expires: 07/13/2024 [facility] Work Phone: Comment on above: Expected: 04/13/2024, Expires: 4 Start: 04-13-2024 End: 07-13-2024 Comprehensive metabolic 2000 panel - Serum or Plasma COMP METABOLIC PANEL Lab Routine Poorly controlled type 2 diabetes mellitus (HCC) Expected: 04/13/2024, Expires: 07/13/2024 [facility] Work Phone: Comment on above: Expected: 04/13/2024, Expires: 4 Start: 04-13-2024 End: 07-13-2024 Hemoglobin A1c in Blood HGB A1C Lab Routine Poorly controlled type 2 diabetes mellitus (HCC) Expected: 04/13/2024, Expires: 07/13/2024 [facility] Work Phone: Comment on above: Expected: 04/13/2024, Expires: 4 Start: 04-13-2024 End: 07-13-2024 LIPID PANEL, NONFASTING LIPID PANEL, NONFASTING Lab Routine Poorly controlled type 2 diabetes mellitus (HCC) Expected: 04/13/2024, Expires: 07/13/2024 [facility] Work Phone: Comment on above: Expected: 04/13/2024, Expires: 4 Start: 03-14-2024 COVID-19 Vaccine ( season) COVID-19 Vaccine ( season) [facility] Start: 03-14-2024 Influenza vaccination Influenza Vaccine (Season Ended) [facility] Start: 01-11-2024 Influenza vaccination Influenza Vaccine (#1) [facility] Comment on above: Postponed from 03/14/2023 (Not Currently Available) Start: 12-19-2023 ANNUAL PCP TEAM CHRONIC DISEASE VISIT ANNUAL PCP TEAM CHRONIC DISEASE VISIT [facility] Start: 12-19-2023 Hepatitis B surface antibody level LDL CHOLESTEROL [facility] Start: 12-09-2023 Hemoglobin A1c measurement HbA1C [facility] Start: 10-15-2023 End: 01-14-2024 Glutamate decarboxylase 65 Ab [Units/volume] in Serum [facility] Work Phone: Comment on above: Expected: 10/15/2023, Expires: 4 Start: 10-15-2023 End: 01-14-2024 Pancreatic islet cell Ab [Titer] in Serum [facility] Work Phone: Comment on above: Expected: 10/15/2023, Expires: 4 Start: 09-13-2023 ANNUAL PCP TEAM CHRONIC DISEASE VISIT ANNUAL PCP TEAM CHRONIC DISEASE VISIT [facility] Start: 09-12-2023 Hepatitis B surface antibody level LDL CHOLESTEROL [facility] Start: 08-14-2023 3 comp foot exam completed DIABETIC FOOT EXAM [facility] Start: 08-14-2023 ANNUAL PCP TEAM CHRONIC DISEASE VISIT ANNUAL PCP TEAM CHRONIC DISEASE VISIT [facility] Start: 08-14-2023 SHINGRIX VACCINE (1 of 2) SHINGRIX VACCINE (1 of 2) [facility] Comment on above: Postponed from 2017 (Insurance Cov erage) Start: 03-20-2023 Hemoglobin A1c/Hemoglobin.total in Blood HBA1C [facility] Start: 03-14-2023 Influenza vaccination Influenza Vaccine (#1) [facility] Start: 02-04-2023 Hepatitis B surface antibody level LDL CHOLESTEROL [facility] Start: 01-30-2023 Adult depression screening assessment DEPRESSION SCREENING [facility] Start: 01-30-2023 ANNUAL PCP TEAM CHRONIC DISEASE VISIT ANNUAL PCP TEAM CHRONIC DISEASE VISIT [facility] Start: 01-30-2023 BP CONTROLLED (<130/80) BP CONTROLLED (<130/80) [facility] Start: 01-30-2023 COVID-19 VACCINE (#1) COVID-19 VACCINE (#1) [facility] Comment on above: Postponed from 1967 (Declined at t his time) Start: 12-23-2022 End: 02-22-2023 Basic metabolic 2000 panel - Serum or Plasma BASIC METABOLIC PNL Lab Routine Essential hypertension Expected: 12/23/2022, Expires: 02/22/2023 [facility] Work Phone: Comment on above: Expected: 12/23/2022, Expires: 3 Start: 12-23-2022 End: 02-22-2023 Hemoglobin A1c in Blood HGB A1C Lab Routine Type 2 diabetes mellitus without retinopathy (HCC) Expected: 12/23/2022, Expires: 02/22/2023 [facility] Work Phone: Comment on above: Expected: 12/23/2022, Expires: 3 Start: 12-23-2022 End: 02-22-2023 LIPID PANEL, NONFASTING LIPID PANEL, NONFASTING Lab Routine Mixed hyperlipidemia Expected: 12/23/2022, Expires: 02/22/2023 [facility] Work Phone: Comment on above: Expected: 12/23/2022, Expires: 3 Start: 12-23-2022 End: 02-22-2023 Urinalysis complete panel - Urine URINALYSIS, WITH MICROSCOPIC Lab Routine Essential hypertension Expected: 12/23/2022, Expires: 02/22/2023 [facility] Work Phone: Comment on above: Expected: 12/23/2022, Expires: 3 Start: 12-12-2022 Hemoglobin A1c/Hemoglobin.total in Blood HBA1C [facility] Start: 08-14-2022 End: 10-14-2022 ALBUMIN/CREAT RATIO RND UR ALBUMIN/CREAT RATIO RND UR Lab Routine Type 2 diabetes mellitus without retinopathy (HCC) 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) Type 2 diabetes mellitus with peripheral neuropathy (HCC) Expected: 08/14/2022, Expires: 10/14/2022 [facility] Work Phone: Comment on above: Expected: 08/14/2022, Expires: 3 Start: 08-14-2022 End: 10-14-2022 CBC W Auto Differential panel - Blood CBC + DIFF Lab Routine Type 2 diabetes mellitus without retinopathy (HCC) 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) Type 2 diabetes mellitus with peripheral neuropathy (HCC) Expected: 08/14/2022, Expires: 10/14/2022 [facility] Work Phone: Comment on above: Expected: 08/14/2022, Expires: 3 Start: 08-14-2022 End: 10-14-2022 Comprehensive metabolic 2000 panel - Serum or Plasma COMP METABOLIC PANEL Lab Routine Type 2 diabetes mellitus without retinopathy (HCC) 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) Type 2 diabetes mellitus with peripheral neuropathy (HCC) Mixed hyperlipidemia Essential hypertension Expected: 08/14/2022, Expires: 10/14/2022 [facility] Work Phone: Comment on above: Expected: 08/14/2022, Expires: 3 Start: 08-14-2022 End: 10-14-2022 Hemoglobin A1c in Blood HGB A1C Lab Routine Type 2 diabetes mellitus without retinopathy (HCC) 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) Type 2 diabetes mellitus with peripheral neuropathy (HCC) Expected: 08/14/2022, Expires: 10/14/2022 [facility] Work Phone: Comment on above: Expected: 08/14/2022, Expires: 3 Start: 08-14-2022 End: 10-14-2022 LIPID PANEL, NONFASTING LIPID PANEL, NONFASTING Lab Routine Type 2 diabetes mellitus without retinopathy (HCC) 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) Type 2 diabetes mellitus with peripheral neuropathy (HCC) Mixed hyperlipidemia Essential hypertension Coronary artery disease due to lipid rich plaque Expected: 08/14/2022, Expires: 10/14/2022 [facility] Work Phone: Comment on above: Expected: 08/14/2022, Expires: 3 Start: 08-14-2022 End: 10-14-2022 Prostate specific Ag [Mass/volume] in Serum or Plasma PSA/PROSTSPECAG DIAG Lab Routine Well adult exam Screening for prostate cancer Expected: 08/14/2022, Expires: 10/14/2022 [facility] Work Phone: Comment on above: Expected: 08/14/2022, Expires: Start: 08-14-2022 End: 10-14-2022 Urinalysis complete panel - Urine URINALYSIS, WITH MICROSCOPIC Lab Routine Type 2 diabetes mellitus without retinopathy (HCC) 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) Type 2 diabetes mellitus with peripheral neuropathy (HCC) Mixed hyperlipidemia Essential hypertension Expected: 08/14/2022, Expires: 10/14/2022 [facility] Work Phone: Comment on above: Expected: 08/14/2022, Expires: 3 Start: 08-08-2022 Glaucoma screening Dilated Retinal Exam [facility] Start: 08-08-2022 Hepatitis C antibody, confirmatory test DILATED RETINAL EXAM [facility] Start: 08-02-2022 Hemoglobin A1c/Hemoglobin.total in Blood HBA1C [facility] Start: 07-30-2022 3 comp foot exam completed DIABETIC FOOT EXAM [facility] Start: 07-30-2022 ANNUAL PCP TEAM CHRONIC DISEASE VISIT ANNUAL PCP TEAM CHRONIC DISEASE VISIT [facility] Start: 07-30-2022 Hepatitis B surface antibody level LDL CHOLESTEROL [facility] Start: 07-30-2022 HEPATITIS C SCREENING HEPATITIS C SCREENING [facility] Comment on above: Postponed from 1985 (Declined at t his time) Start: 03-14-2022 Influenza vaccination INFLUENZA (#1) [facility] Start: 03-08-2022 End: 03-08-2023 Estradiol (E2) [Mass/volume] in Serum or Plasma [facility] Work Phone: Comment on above: Expected: 03/08/2022, Expires: 3 Start: 03-08-2022 End: 03-08-2023 Lutropin [Units/volume] in Serum or Plasma [facility] Work Phone: Comment on above: Expected: 03/08/2022, Expires: 3 Start: 03-08-2022 End: 03-08-2023 Prolactin [Mass/volume] in Serum or Plasma [facility] Work Phone: Comment on above: Expected: 03/08/2022, Expires: 3 Start: 03-08-2022 End: 03-08-2023 Testosterone [Mass/volume] in Serum or Plasma [facility] Work Phone: Comment on above: Expected: 03/08/2022, Expires: 3 Start: 10-28-2021 Hemoglobin A1c/Hemoglobin.total in Blood HBA1C [facility] Start: 07-27-2020 BP CONTROLLED (<130/80) BP CONTROLLED (<130/80) [facility] Start: 09-22-2019 Adult depression screening assessment DEPRESSION SCREENING [facility] Start: 2017 SHINGRIX VACCINE (1 of 2) SHINGRIX VACCINE (1 of 2) [facility] Start: 2017 Zoster Vaccines (1 of 2) Zoster Vaccines (1 of 2) [facility] Start: 2012 COLOGUARD (FIT-DNA) COLOGUARD (FIT-DNA) [facility] Start: [address] COLONOGRAPHY [facility] Start: 2012 FECAL OCCULT BLOOD FECAL OCCULT BLOOD [facility] Start: 2012 Screening for malignant neoplasm of colon [facility] Start: 2012 SIGMOIDOSCOPY SIGMOIDOSCOPY [facility] Start: 1986 Hepatitis B Vaccines (1 of 3 - 19+ 3-dose series) Hepatitis B Vaccines (1 of 3 - 19+ 3-dose series) [facility] Start: 1985 Hepatitis C screening Hepatitis C Screening [facility] Start: 1979 Depression Screening Depression Screening [facility] Start: 1977 Diabetic foot examination Diabetes: Foot Exam [facility] Start: 1977 Glaucoma screening Diabetes: Retinopathy Screening [facility] Start: 1977 Preventive dental service Diabetes: Dental Exam [facility] Start: 1972 COVID-19 VACCINE (1) COVID-19 VACCINE (1) [facility] Start: 1968 MMR Vaccines (1 of 1 - Standard series) MMR Vaccines (1 of 1 - Standard series) [facility] Start: 1967 Covid-19 Vaccine (#1) Covid-19 Vaccine (#1) [facility] Start: 1967 HIV screening HIV Screening [facility] Start: 1967 Screening for malignant neoplasm of colon [facility] Anion gap in Serum o r Plasma [facility] Anion gap in Serum o r Plasma [facility] Basic metabolic 2008 panel with ionized calcium - Serum or Plasma [facility] BUN/Creatinine ratio [facility] BUN/Creatinine ratio [facility] Calcium [Mass/volume ] in Serum or Plasma [facility] Calcium [Mass/volume ] in Serum or Plasma [facility] Carbon dioxide, tota l [Moles/volume] in Central venous blood [facility] Carbon dioxide, tota l [Moles/volume] in Central venous blood [facility] Catheterization of l eft heart [facility] CBC W Auto Different ial panel - Blood [facility] Cholesterol [Mass/volume] in Serum or Plasma [facility] Cholesterol in HDL [Mass/volume] in Serum or Plasma [facility] Creatinine [Mass/vol ume] in Serum or Plasma [facility] Creatinine [Mass/vol ume] in Serum or Plasma [facility] End: 12-18-2023 Echocardiography ECHO Cardiology Routine Coronary artery disease due to lipid rich plaque 1 Occurrences starting 12/17/2022 until 12/18/2023 [facility] Work Phone: Comment on above: 1 Occurrences starting 12/17/2022 until 12/18/2023 Erythrocyte mean corpuscular volume determination [facility] Erythrocyte mean corpuscular volume determination [facility] Glucose [Mass/volume ] in Serum or Plasma [facility] Glucose [Mass/volume ] in Serum or Plasma [facility] HB A1C B/O HB A1C B/O Lab R outine Controlled type 2 diabetes mellitus without complication, with long-term current use of insulin (HCC) Ordered: 01/30/2022 [facility] Work Phone: Comment on above: Ordered: 01/30/2022 Hematocrit [Volume Fraction] of Blood [facility] Hematocrit [Volume Fraction] of Blood [facility] Hemoglobin [Mass/vol ume] in Blood [facility] Hemoglobin [Mass/vol ume] in Blood [facility] Hemoglobin A1c/Hemoglobin.total in Blood [facility] INR in Blood by Coagulation assay [facility] Leukocytes [#/volume ] in Blood [facility] Leukocytes [#/volume ] in Blood [facility] Low density lipoprot ein cholesterol measurement [facility] Magnesium measurement [facility] Mean corpuscular hemoglobin concentration determination [facility] Mean corpuscular hemoglobin concentration determination [facility] Mean corpuscular hemoglobin determination [facility] Mean corpuscular hemoglobin determination [facility] Measurement of renal function [facility] Measurement of renal function [facility] Neutrophil count [facility] Neutrophil count [facility] Neutrophil percent differential count [facility] Neutrophil percent differential count [facility] Platelets [#/volume] in Blood [facility] Platelets [#/volume] in Blood [facility] Potassium measurement [facility] Potassium measurement [facility] End: 03-04-2025 Prothrombin time (PT) in Blood by Coagulation assay Protime-INR Lab Routine Once (Lab) for 1 Occurrences starting 03/04/2025 until 03/04/2025 [facility] Work Phone: Comment on above: Once (Lab) for 1 Occurrences starting until 03/04/2025 Red blood cell count [facility] Red blood cell count [facility] Red cell distributio n width determination [facility] Red cell distributio n width determination [facility] Serum chloride measurement [facility] Serum chloride measurement [facility] Sodium measurement [facility] Sodium measurement [facility] Tissue exam [facility] [employer] Work Phone: Comment on above: Release Upon Ordering for 1 Occurrences starting 03/04/2025, 1 completed Total cholesterol:HD L ratio measurement [facility] Triglycerides measurement [facility] Troponin T.cardiac [Mass/volume] in Serum or Plasma by High sensitivity method [facility] Troponin T.cardiac [Mass/volume] in Serum or Plasma by High sensitivity method [facility] Urea nitrogen [Mass/volume] in Serum or Plasma [facility] Urea nitrogen [Mass/volume] in Serum or Plasma [facility] US Heart [facility] End: 07-12-2024 Us soft tissue head & neck real time imge docm US THYROID/PARATHYROID Radiology Routine Thyroid nodule 1 Occurrences starting 2023 until 07/12/2024 [facility] Work Phone: Comment on above: 1 Occurrences starting 2023 until 07/12/2024 VLDL cholesterol measurement [facility] XR Chest PA and Lateral [facility] Immunizations Immunization Date Immunization Notes Care Provider [facility] 09-10-2023 pneumococcal Conjuga te, unspecified formulation Oswald Quarles MD Work Phone: [facility] Work Phone: 09-10-2023 pneumococcal conjuga te (PCV20) vaccine, 20 valent (PREVNAR 20) Oswald Quarles MD Work Phone: [facility] 08-14-2022 influenza, injectabl e, quadrivalent, contains preservative Oswald Quarles MD Work Phone: [facility] 08-14-2022 influenza virus vacc ine, unspecified formulation Injection Wstr Work Phone: [facility] 07-30-2021 influenza, injectabl e, quadrivalent, contains preservative Debra Praisler-Wood [employer] Work Phone: [facility] 06-07-2020 influenza, injectabl e, quadrivalent, contains preservative Debra Praisler-Wood [employer]KEEP[employer].[facility] Work Phone: [facility] 07-27-2019 influenza, injectabl e, quadrivalent, contains preservative Debra Praisler-Wood [employer]KEEPING [employer].[facility] Work Phone: [facility] 09-21-2018 influenza, injectabl e, quadrivalent, contains preservative Debra Praisler-Wood [employer]KEEPING [employer].[facility] Work Phone: [facility] 06-19-2016 influenza, injectabl e, quadrivalent, contains preservative Debra Praisler-Wood [employer] HOU[employer]KEEPING AIDE.[facility] Work Phone: [facility] Work Phone: 01-18-2016 pneumococcal polysaccharide vaccine, 23 valent Debra Praisler-Wood [employer]KEEP[employer].[facility] Work Phone: [facility] Work Phone: 05-18-2015 influenza, injectabl e, quadrivalent, contains preservative Debra Praisler-Wood [employer]KEEP[employer].[facility] Work Phone: [facility] Work Phone: 01-17-2015 pneumococcal conjuga te vaccine, 13 valent Debra Praisler-Wood [employer].[place] [facility] Work Phone: [facility] Work Phone: 05-19-2014 influenza, seasonal, injectable Debra Praisler-Wood LAUNDRY HOUSEKEEPING AIDE.[place] [facility] Work Phone: [facility] Work Phone: 05-19-2014 tetanus toxoid, redu geraldine diphtheria toxoid, and acellular pertussis vaccine, adsorbed Debra Praisler-Wood LAUNDRY HOUSEKEEPING AIDE.[place] [facility] Work Phone: [facility] Work Phone: Payers Date Payer Category Payer Self-pay 2024 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 2023 Unknown [id number] 2022 Unknown [id number] 2022 Unknown [id number] 2019 Unknown [employer] PPO [id number] 2019-Present [phone] [address] [place] [address] PPO [id number] 1965 Unknown [id number] 1965 Unknown [id number] Unknown [id number] Unknown [id number] 462 Unknown [id number]. 462 Unknown [id number]. 462 Unknown [id number]. 462 Unknown [id number]. 462 Unknown [id number]. 462 Unknown [id number] [id number]. 462 Unknown [id number] 462 Social History Date Type Detail Facility Start: 02-15-2014 End: 03-17-2025 Tobacco smoking status NHIS Never smoked tobacco [facility] Work Phone: Start: 02-15-2014 End: 03-12-2025 Tobacco use and exposure User of smokeless tobacco [facility] Work Phone: History of tobacco use Chews Tobacco [facility] Work Phone: Start: 10-01-2021 End: 03-15-2025 Alcohol intake Current drinker of alcohol (finding) [facility] Start: 07-30-2021 History SDOH Alcohol Comment on occasion [facility] Start: 07-30-2021 End: 03-08-2022 Tobacco Comment can of chew per day [facility] Start: 1965 Sex Assigned At Not on file C [facility] Start: 09-21-2021 End: 03-08-2022 Exposure to SARS-CoV-2 (event) Not sure [facility] Start: 10-28-2022 End: 03-04-2025 History of Social function [facility] Work Phone: Start: 10-28-2022 End: 03-04-2025 Tobacco use panel [facility] Work Phone: Adult Depression Screening Assessment 0 [facility] Work Phone: Start: 07-08-2020 Alcohol Alcohol [facility] Start: 07-08-2020 Lives Lives [facility] Start: 07-08-2020 Tobacco Use Tobacco Use [facility] Start: 1965 Sex Assigned At Male [facility] Start: 02-09-2025 Tobacco use and exposure Smokeless tobacco non-user [facility] Start: 02-07-2025 Sex Male (finding) Maame Lewis alth Within the last year , have you been afraid of your partner or ex-partner? No [facility] History of tobacco use Snuff User [facility] Medical Equipment Procedure Code Equipment Code Equipment Origin al Text Equipment Identifier Dates [id number], [id number], [id number] Start: 08-30-2019 End: 02-24-2026 Comment on above: Test 2 times daily, Insulin Dep? No E11.9 DM 2 Test Two times a day . Insulin Dep? Yes E11.9 DM 2 Functional Status Date Assessment Result Facility 03-17-2025 Functional status Patient Activity [facility] Work Phone: Mental Status Date Assessment Result Facility 03-17-2025 Cognitive function Voice/Name [facility] Work Phone: Clinical Notes 10-01-2021 to 03-15-2025 Hossein Romero APRN - DINAH - 03/15/2025 11:30 AM EDTPatient InstructionsHome Meggan Dalal RN - 03/08/2025 1:05 PM EDTHome Meggan Dalal RN - 03/08/2025 1:05 PM EDT Note Date & Type Note Facility 03-15-2025 History of Present illness Narrative Images from the original note were not included. [facility] Medical Group: [facility] [address] [facility] [address] Dept: [phone] Dept Loc: [phone] Visit type: Established patient - in person [...] stable, [facility]. 03/15/25: 59 y.o. male [...] This note may have been dictated using Digital Lumens Medical Practice Edition 2.6 and/or Fighters Voice Recognition Feature. The document was proofread, however unrecognized voice recognition braided rug maker errors may be present. documented in this encounter [facility] 03-15-2025 Instructions TROY Rosales CNP - 03/15/2025 11:30 AM EDT Weight restriction measures 1-4 weeks from date of surgery- 10lbs weight restriction: 9/19/25 5-8 weeks from date of surgery- 20lbs weight restriction approximate end date:04/29/25 documented in this encounter [facility] 03-08-2025 Patient's home Note Discussed Home [...] any other needs arise prior to DC. 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 Procedures CORONARY ARTERY BYPASS GRAFT 19647 - OR CABG W/ARTERIAL GRAFT THREE ARTERIAL GRAFTS ECHOCARDIOGRAM, TRANSESOPHAGEAL 87362 - OR ECHO TRANSESOPHAG R-T 2D W/PRB IMG ACQUISLoretta [...] (mL) 30 mL 03/04/25 1218 NG/OG Tube [facility] mouth (Active) Placement Verification Auscultation 03/04/25 1218 [...] Lane MD 03/04/25 1133 Description: XIPHOID Staff: Spa Assistant Manager: Randall Lamb RN Relief Spa Assistant Manager: Jennifer Fairchild RN Scrub Person: Romeo Luevano Engine Repairer: Sasha Moreno RN Indications: Wallace Turk [...] due to lack of availability of the Arrayent Healthstim flow probe device. Doppler evaluation of the [...] and spit ordered. documented in this encounter [facility] 03-08-2025 History of Present illness Narrative Images from the original note were not included. PHYSICAL THERAPY [facility] Treatment Note Name/MRN: Wallace Turk ([id number]) Date of : 1965 Age: 59 y.o. [...] No primary care provider on file. Outpt Conversion Developer: Yes Ellis Marquez ASSESSMENT: Type 2 diabetes [...] Humalog pens current dose Clara pen needles [id number] Dexcom g7 sensors Outpt Follow Up-- 05-27 [...] found for: CHOLHDLRATIO No results found for: [id number] Lab Results Component Value Date TSH 1.79 02/25/2025 Radiology reportsas per the Radiologist Radiology: POCT glucose meter Result Date: 03/04/2025 Performed by: [facility], [address] [place] [address] CLIA ID: [id number] History/Other: Past Medical History: Medical History[4] Past [...] original note were not included. PHYSICAL THERAPY [facility] Treatment Note Name/MRN: Wallace Turk ([id number]) Date of : 1965 Age: 59 y.o. [...] 1-9 x 6-8 reps each Comments: I.S. 7302-5106 mL Plan Continue acute PT per plan [...] No primary care provider on file. Outpt Conversion Developer: Yes Ellis Marquez ASSESSMENT: Type 2 diabetes [...] Humalog pens current dose Clara pen needles [id number] Dexcom sensors Outpt Follow Up-- 05-27 Richard [...] found for: CHOLHDLRATIO No results found for: [id number] Lab Results Component Value Date TSH 1.79 02/25/2025 Radiology reportsas per the Radiologist Radiology: POCT glucose meter Result Date: 03/04/2025 Performed by: [facility], [address] [place] [address] CLIA ID: [id number] History/Other: Past Medical History: Medical History[4] Past [...] ringers, 250 mL, Last Rate: Stopped (03/04/25 4072) [3] PRN medications: albumin human, calcium gluconate, [...] the original note were not included. Cardiothoracic Surgery/[facility] Progress Note PATIENT NAME: Wallace Turk DATE: [...] of 15 minutes were spent between the uqnm-si-oowe encounter, physical exam, reviewing the medical history, [...] Blood Conservation: None noted in post-operative period Breakdown Man: Dr. Enrique Cosigned by Hector Caban DO at 03/07/2025 7:40 PM EDT Images from the original note were not included. Cardiothoracic Surgery/[facility] Progress Note PATIENT NAME: Wallace Turk DATE: [...] Blood Conservation: None noted in post-operative period Breakdown Man: Dr. Iva Cosigned by Kobi Guerrero MD at 03/06/2025 1:35 PM EDT Associated attestation - Kobi Guerrero MD - 03/06/2025 1:35 PM EDT I have personally performed a face to face diagnostic evaluation on this patient today on 03/06/25. Labs, imaging studies, and electronic medical record notes on [employer] have been reviewed by me. This note documented and discussed by the []aboriginal home school liaison officer []Fellow [x] NOELLE reflects my history, [...] I) Chief Complaint: Coronary artery disease of [place] artery of [place] heart with stable angina pectoris Additional pertinent [...] Turk : 1965 AGE: 59 y.o. [facility]: [facility] Admission Date: 03/04/2025 Visit Date: 03/06/2025 Reason for Endocrine Consult: post heart Provider/Team Requesting Consult: cts PCP: No primary care provider on file. Outpt Conversion Developer: Campos Marquez ASSESSMENT: Type 2 diabetes with [...] Humalog pens current dose Clara pen needles [id number] Dexcom sensors Outpt Follow Up-- 05-27 Richard [...] found for: CHOLHDLRATIO No results found for: [id number] Lab Results Component Value Date TSH 1.79 02/25/2025 Radiology reportsas per the Radiologist Radiology: POCT glucose meter Result Date: 03/04/2025 Performed by: [facility], [address] [place], [place] [id number] CLIA ID: [id number] History/Other: Past Medical History: Medical History[4] Past [...] ringers, 250 mL, Last Rate: Stopped (03/04/25 4036) [3] PRN medications: albumin human, calcium gluconate, [...] original note were not included. OCCUPATIONAL THERAPY [facility] Initial Evaluation Name/MRN: Wallace Turk ([id number]) Evaluation Date: 03/06/2025 Date of : 1965 [...] PRN upon discharge. Admitting Diagnosis: CAD in [place] artery Performance Deficits /Impairments: Increased Pain Prognosis: Good Decision Making: Low Complexity Subjective Patient is sitting in recliner; patient agreeable to therapy evaluation. RN ok'd for participation. Pain: 0-10 pain scale: 3/10 Location: chest tube Past Medical History: Medical History[1] Past Surgical History: Surgical History[2] Admission Diagnosis: Patient Active Problem List Diagnosis Date Noted CAD in [place] artery 02/28/2025 Medical Precautions: No active isolations [...] Responsibilities: Independent Receives Help From: None Active Regional Business Development Manager: Yes Prior Level of Function Prior Level [...] of Care supervision is transferred to a [facility] Therapy Services Occupational Therapist. Goals and/or treatment [...] original note were not included. PHYSICAL THERAPY [facility] Initial Evaluation Name/MRN: Wallace Turk ([id number]) Evaluation Date: 03/05/2025 Date of : 1965 Admission Date: 03/04/2025 5:22 AM Age: 59 y.o. Room[facility]Bed: [facility] A Discharge Recommendation: Home with assist PRN [...] Problem List Diagnosis Date Noted CAD in [place] artery 02/28/2025 Medical Precautions: No active isolations [...] Responsibilities: Independent Receives Help From: None Active Regional Business Development Manager: Yes Prior Level of Function Prior Level [...] of Care supervision is transferred to a [facility] Therapy Services Physical Therapist. Goals and/or treatment [...] No primary care provider on file. Outpt Conversion Developer: Campos Marquez ASSESSMENT: Type 2 diabetes with [...] Humalog pens current dose Clara pen needles [id number] Dexcom sensors Outpt Follow Up-- 05-27 Richard [...] found for: CHOLHDLRATIO No results found for: [id number] Lab Results Component Value Date TSH 1.79 02/25/2025 Radiology reportsas per the Radiologist Radiology: POCT glucose meter Result Date: 03/04/2025 Performed by: [facility], [address] [place] [address] CLIA ID: [id number] History/Other: Past Medical History: Medical History[4] Past [...] the original note were not included. Cardiothoracic Surgery/[facility] Progress Note PATIENT NAME: Wallace Turk DATE: [...] Blood Conservation: None noted in post-operative period Breakdown Man: Dr. Enrique Cosigned by Kobi Guerrero MD at 03/05/2025 12:07 PM EDT Associated attestation - Kobi Guerrero MD - 03/05/2025 12:07 PM EDT I have personally performed a face to face diagnostic evaluation on this patient today on 03/05/25. Labs, imaging studies, and electronic medical record notes on [employer] have been reviewed by me. This note documented and discussed by the []aboriginal home school liaison officer []Fellow [x] NOELLE reflects my history, [...] I) Chief Complaint: Coronary artery disease of [place] artery of [place] heart with stable angina pectoris Additional pertinent interval history, ROS, and physical exam findings: In chair, on room air Heart RRR Resp clear anteriorly, unlabored Assessment and Plan: mvCAD 03/04 s/p CABG x 3 Anemia, thrombocytopenia expected post op HTN, HLD DM2 ASA, statin, b-liliana Lasix diuresis as tolerated D/c arterial line Status: Guarded Disposition: Remain in ICU until discharge [facility] Respiratory Care Department Progress Note Spontaneous Awakening [...] 03/04/25 1131 03/04/25 1233 PHART 7.390 7.385 VUK8RKP 37.0 36.3 PO2ART 193.3* 187.1* LDL6CKC 21.9 21.2 [id number] Ventilator Ventilator Ventilator Does this patient meet criteria for termination of mechanical ventilation Yes- Notified physician below Name of physician notified via secure chat or in person : DR. Diaz (NA if patient did not meet criteria) Comments: Thank you for involving Respiratory in the care of this patient, documented in this encounter [facility] [employer] 03-08-2025 Note Attestation signed by Jewel Lane [...] DISCHARGING SURGEON: Jewel Lane MD, Office Number: [phone] DISCHARGE DIAGNOSES: MVCAD s/p CABGx3 HTN T2DM HLD Post operative Pulm Management: Normal Post-operative Course Post-operative Atrial Fibrillation: []Yes [x] No Acute blood loss anemia/consumptive thrombocytopenia BMI CLASSIFICATION:Overweight (BMI 25.0-29.9) TREATMENT TEAM: Primary Care Physician: No primary care provider on file. Breakdown Man: Dr. Enrique SURGERY: s/p CABGx3 (MEADE-LAD, SVG-OM2, [...] stable, [facility], P[facility]4. DIAGNOSTICS: BP 152/81 (BP [...] 4 times daily (more content not included)... [facility] 03-08-2025 Hospital course Narrative Images from the original note were not included. Discharge Summary: Cardiothoracic Surgery Wallace Turk, 59 y.o., 1965 ADMIT DATE: 03/04/2025 DISCHARGE DATE: 03/08/2025 VISIT STATUS: Admission CODE STATUS: Full Code DISCHARGING SURGEON: Jewel Lane MD, Office Number: [phone] DISCHARGE DIAGNOSES: MVCAD s/p CABGx3 HTN T2DM HLD Post operative Pulm Management: Normal Post-operative Course Post-operative Atrial Fibrillation: []Yes [x] No Acute blood loss anemia/consumptive thrombocytopenia BMI CLASSIFICATION:Overweight (BMI 25.0-29.9) TREATMENT TEAM: Primary Care Physician: No primary care provider on file. Breakdown Man: Dr. Enrique SURGERY: s/p CABGx3 (MEADE-LAD, SVG-OM2, [...] Your Medications These medications were sent to [facility] [address] [place] [address] Hours: Friday to Friday 10 am to [...] JURADO Mar 15 2025 at 11:30 [address] [facility] [place] [address] Dept: [phone] Dept CORE CARDIAC MEDICATIONS PRESCRIBED AT DISCHARGE: [...] SERVICE: 12:14 PM documented in this encounter [facility] 03-08-2025 Consult note Formatting of th is note might be different from the original. Received referral and reviewed chart. Phase II Cardiopulmonary Rehab Referral discussed with Wallace Turk. Patient prefers cardiopulmonary rehab at [facility]. Given information on program at preferred location. [facility] 03-08-2025 Note Received referral an d reviewed chart. Phase II Cardiopulmonary Rehab Referral discussed with Wallace Turk. Patient prefers cardiopulmonary rehab at [facility]. Given information on program at preferred location. [facility] 03-08-2025 Consult note Formatting of th is note might be different from the original. Received referral and reviewed chart. Phase II Cardiopulmonary Rehab Referral discussed with Wallace Turk. Patient prefers cardiopulmonary rehab at [facility]. Given information on program at [...] loss Fluid Accumulation: No significant fluid accumulation Ccie Strength: Not Performed Nutrition Assessment: 59yo M [...] On: Kcal/kg Weight Used for Energy Requirements: [place] Weight for Energy Calculation (kg): 73 kg Total Energy Requirements (kcals/day): 25-30 kcal/day = 2458-9077 kcal/day Weight Used for Protein Requirements: [place] Weight in Kg Used for Protein Requirements: [...] chart: 02/09/25 194#, 01/19/25 202#, 10/15/23 205#) [place] Body Weight (lbs) (Calculated): 160 lbs [place] Body Weight (Kg) (Calculated): 73 kg % [place] Body Weight (Calculated): 126.1 % BMI (kg/m2) [...] outpatient nutrition counseling Tatum Rae RD Contact: *[phone] Associated Order(s): IP CONSULT TO CARDIAC REHAB [...] Turk : 1965 AGE: 59 y.o. [facility]: [facility] Admission Date: 03/04/2025 Visit Date: 03/04/2025 Reason for Endocrine Consult: post heart Provider/Team Requesting Consult: cts PCP: No primary care provider on file. 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 Do not swallow. Continuous Glucose Sensor (sofatutor G7 Sensor) misc Replace with a new [...] found for: CHOLHDLRATIO No results found for: [id number] Lab Results Component Value Date TSH 1.79 02/25/2025 Radiology reportsas per the Radiologist Radiology: POCT glucose meter Result Date: 03/04/2025 Performed by: [facility], [address] [place], [place] [id number] CLIA ID: [id number] History/Other: Past Medical History: Medical History[4] Past [...] Drug use: Not Currently Cosigned by Martell Guthire MD at 03/04/2025 2:33 PM EDT Associated attestation - Martell Guthrie MD - 03/04/2025 2:33 PM EDT I have personally performed a face to face diagnostic evaluation on this patient. In addition, I have reviewed the resident's/RECONCILIATION SPECIALIST/DRIVER MATERIAL HANDLER's care plan and agree with those findings [...] imaging are reviewed as detailed in the resident's/RECONCILIATION SPECIALIST/DRIVER MATERIAL HANDLER's note Images from the original note were not included. [facility] Group: Critical Care Consultation Note Date: 03/04/25 [...] Yes TROY Fregoso CNP Continuous Glucose Sensor ([employer] G7 Sensor) misc Replace with a new [...] when appropriate->extubate - Recheck labs - No [place], okay for VBG if concerns for low [...] studies, and electronic medical record notes on [employer] have been reviewed by me. This note documented and discussed by the []aboriginal home school liaison officer []Fellow [x] NOELLE reflects my history, [...] minutes. Chief Complaint: Coronary artery disease of [place] artery of [place] heart with stable angina pectoris Additional pertinent [...] ICU until discharge documented in this encounter [facility] 03-08-2025 Hospital Discharge instructions Hossein Romero APRN - MANAGER WINTER - 03/08/2025 8:28 AM EDT Images from the original note were not included. [facility] Medical Group: Cardiothoracic Surgery [address] [facility] #[phone] Notify us if the following occur - [...] Cardiothoracic Surgery: Symptom Management Office phone number: [phone] Office is open 8:30 am -4 pm. [...] Call cardiothoracic surgery line for further instructions: [phone] Office is open 8:30 am -4 pm. [...] in Emergency Department documented in this encounter [facility] 03-08-2025 Note Cardiothoracic Surge ry/CCM Progress [...] of 16 minutes were spent between the ixlv-uw-yzlr encounter, physical exam, reviewing the medical history, [...] Blood Conservation: None noted in post-operative period Breakdown Man: Dr. Enrique [facility] 03-07-2025 Note Care Management Prog ress Note Short Medical why still here: Tcc chart review complete, iv lasix, right internal jugular introducer, temp pacer, chest tube, tcc to follow Planned Discharge Disposition: Home or Self Care (tbd) - KEV following Barriers/Today we still Wait: Administering IV medications, Clinical stability, Stonecutter Assistant recommendations (comment), Symptomatic control Length of Stay (Days): 3 GMLOS: 5.8 [facility] 03-07-2025 Progress note Formatting of t his note might be different from the original. Care Management Progress Note Short Medical why still here: Tcc chart review complete, iv lasix, right internal jugular introducer, temp pacer, chest tube, tcc to follow Planned Discharge Disposition: Home or Self Care (tbd) - ANGULO following Barriers/Today we still Wait: Administering IV medications, Clinical stability, Stonecutter Assistant recommendations (comment), Symptomatic control Length of Stay (Days): 3 GMLOS: 5.8 [facility] 03-07-2025 Note Cardiothoracic Surge ry/CCM Progress [...] of 15 minutes were spent between the gzjk-zv-fqze encounter, physical exam, reviewing the medical history, [...] Blood Conservation: None noted in post-operative period Breakdown Man: Dr. Enrique [facility] 03-06-2025 Note OCCUPATIONAL THERAPY [facility] Initial Evaluation Name/MRN: Wallace Turk ([id number]) Evaluation Date: 03/06/2025 Date of : 1965 [...] PRN upon discharge. Admitting Diagnosis: CAD in [place] artery Performance Deficits /Impairments: Increased Pain Prognosis: Good Decision Making: Low Complexity Subjective Patient is sitting in recliner; patient agreeable to therapy evaluation. RN ok'd for participation. Pain: 0-10 pain scale: 3/10 Location: chest tube Past Medical History: Medical History[1] Past Surgical History: Surgical History[2] Admission Diagnosis: Patient Active Problem List Diagnosis Date Noted CAD in [place] artery 02/28/2025 Medical Precautions: No active isolations [...] Responsibilities: Independent Receives Help From: None Active Regional Business Development Manager: Yes Prior Level of Function Prior Level [...] CORONARY ANGIOPLASTY 05/2012 CORONARY STENT PLACEMENT x3 [facility] 03-06-2025 Consult note Associated Order (s): IP [...] loss Fluid Accumulation: No significant fluid accumulation Ccie Strength: Not Performed Nutrition Assessment: 59yo M [...] On: Kcal/kg Weight Used for Energy Requirements: [place] Weight for Energy Calculation (kg): 73 kg Total Energy Requirements (kcals/day): 25-30 kcal/day = 4740-6257 kcal/day Weight Used for Protein Requirements: [place] Weight in Kg Used for Protein Requirements: [...] chart: 02/09/25 194#, 01/19/25 202#, 10/15/23 205#) [place] Body Weight (lbs) (Calculated): 160 lbs [place] Body Weight (Kg) (Calculated): 73 kg % [place] Body Weight (Calculated): 126.1 % BMI (kg/m2) [...] outpatient nutrition counseling Tatum Rae RD Contact: *[phone] [facility] 03-06-2025 Note Nutrition Assessment Type and [...] loss Fluid Accumulation: No significant fluid accumulation Ccie Strength: Not Performed Nutrition Assessment: 59yo M [...] On: Kcal/kg Weight Used for Energy Requirements: [place] Weight for Energy Calculation (kg): 73 kg Total Energy Requirements (kcals/day): 25-30 kcal/day = 9992-0231 kcal/day Weight Used for Protein Requirements: [place] Weight in Kg Used for Protein Requirements: [...] chart: 02/09/25 194#, 01/19/25 202#, 10/15/23 205#) [place] Body Weight (lbs) (Calculated): 160 lbs [place] Body Weight (Kg) (Calculated): 73 kg % [place] Body Weight (Calculated): 126.1 % BMI (kg/m2) (Calculated): 29.8 Weight Adjustment For: No Adjustment BMI Categories: Overweight (BMI 25.0-29.9) Nutrition Diagnosis: Food & Nutrition-related knowledge deficit related to endocrine dysfuntion, cardiac dysfunction as evidenced by lab values (A1c 11.7, s/p open heart surgery for CAD) Nutrition (more content not included)... [facility] 03-05-2025 Note PHYSICAL THERAPY [facility] Initial Evaluation Name/MRN: Wallace Turk ([id number]) Evaluation Date: 03/05/2025 Date of : 1965 [...] Problem List Diagnosis Date Noted CAD in [place] artery 02/28/2025 Medical Precautions: No active isolations [...] Responsibilities: Independent Receives Help From: None Active Regional Business Development Manager: Yes Prior Level of Function Prior Level [...] Raw Score (No Stairs) : 13 [facility] Score: Walked 25 ft or more [...] perform bed mobil (more content not included)... [facility] 03-04-2025 Note [facility] Respiratory Care Department Progress Note Spontaneous Awakening [...] 03/04/25 1131 03/04/25 1233 PHART 7.390 7.385 EIR9NGC 37.0 36.3 PO2ART 193.3* 187.1* OFF7OEQ 21.9 21.2 [id number] Ventilator Ventilator Ventilator Does this patient meet criteria for termination of mechanical ventilation Yes- Notified physician below Name of physician notified via secure chat or in person : DR. Diaz (NA if patient did not meet criteria) Comments: Thank you for involving Respiratory in the care of this patient, [facility] 03-04-2025 Consult note Associated Order (s): IP CONSULT TO CARDIAC REHAB Received referral and reviewed chart. Unable to discuss Phase II Cardiopulmonary Rehab Referral with Wallace Turk at this time. Will follow to discuss program when appropriate. Patient will be contacted at home if discharged prior to discussion. [facility] 03-04-2025 Note Received referral an d reviewed chart. Unable to discuss Phase II Cardiopulmonary Rehab Referral with Wallace Turk at this time. Will follow to discuss program when appropriate. Patient will be contacted at home if discharged prior to discussion. [facility] 03-04-2025 Note Patient: Wallace Poe rd Procedure Summary Date: 03/04/25 Room / Location: [facility] Operating Room Anesthesia Start: 0707 Anesthesia Stop: 1228 Procedures: CORONARY ARTERY BYPASS GRAFT (Chest) ECHOCARDIOGRAM, TRANSESOPHAGEAL Diagnosis: Atherosclerotic heart disease of [place] coronary artery with other forms of angina [...] once all PACU criteria has been met. [facility] 03-04-2025 Note Patient: Wallace Poe rd Procedure Summary Date: 03/04/25 Room / Location: [address] Operating Room Anesthesia Start: 706 Anesthesia Stop: 8 Procedures: CORONARY ARTERY BYPASS GRAFT (Chest) ECHOCARDIOGRAM, TRANSESOPHAGEAL Diagnosis: Atherosclerotic heart disease of [place] coronary artery with other forms of angina pectoris (HCC) Surgeons: Jweel Lane MD Responsible Provider: Humble Espinoza DO [...] opportunity for questions and acknowledgement of understanding. [facility] 03-04-2025 Consult note Associated Order (s): IP CONSULT TO ENDOCRINOLOGY Department of Internal Medicine Division of Endocrinology, Diabetes, & Metabolism Endocrinology Note Patient Name: Wallace Turk : 1965 AGE: 59 y.o. [facility] Admission Date: 03/04/2025 Visit Date: 03/04/2025 Reason for Endocrine Consult: post heart Provider/Team Requesting Consult: cts PCP: No primary care provider on file. Outpt Conversion Developer: Yes Ellis Marquez ASSESSMENT: Stress hyperglycemia DM2 [...] Humalog pens current dose Clara pen needles [id number] Dexcom sensors Outpt Follow Up-- 05-27 Richard [...] surgery. Do not swallow. Continuous Glucose Sensor (sofatutor G7 Sensor) misc Replace with a new [...] found for: CHOLHDLRATIO No results found for: [id number] Lab Results Component Value Date TSH 1.79 02/25/2025 Radiology reportsas per the Radiologist Radiology: POCT glucose meter Result Date: 03/04/2025 Performed by: [facility], [address] [place] [address] CLIA ID: [id number] History/Other: Past Medical History: Medical History[4] Past [...] patient. In addition, I have reviewed the resident's/RECONCILIATION SPECIALIST/DRIVER MATERIAL HANDLER's care plan and agree with those findings [...] imaging are reviewed as detailed in the resident's/RECONCILIATION SPECIALIST/DRIVER MATERIAL HANDLER's note [facility] 03-04-2025 Consult note Formatting of th is note is different from the original. Images from the original note were not included. [facility] Medical Group: Critical Care Consultation Note [...] when appropriate->extubate - Recheck labs - No [place], okay for VBG if concerns for low [...] studies, and electronic medical record notes on [employer] have been reviewed by me. This note documented and discussed by the []aboriginal home school liaison officer []Fellow [x] NOELLE reflects my history, [...] minutes. Chief Complaint: Coronary artery disease of [place] artery of [place] heart with stable angina pectoris Additional pertinent interval history, ROS, and physical exam findings: Patient seen and examined. Sedated, intubated, pupils symmetric Heart RRR Lungs symmetric air exchange No cyanosis Assessment and Plan: mvCAD 03/04 s/p CABG x 3 Post op vent management Anemia, thrombocytopenia expected post op HTN, HLD [facility], f/u CXR and ABG SAT/SBT later today Transfuse prn Status: Critically ill Disposition: Remain in ICU until discharge [facility] 03-04-2025 Note Central Venous Line: Date/Time: [...] with no complications. Staffing Performed: anesthesiologist and LOAN WORKOUT OFFICER Anesthesiologist: Humble Espinoza DO Resident/LOAN WORKOUT OFFICER: TROY Gould CRNA [facility] 03-04-2025 Note Arterial Line: Date/Time: 03/04/2025 7:08 [...] with no complications. Staffing Performed: anesthesiologist and LOAN WORKOUT OFFICER Anesthesiologist: Humble Espinoza DO Resident/LOAN WORKOUT OFFICER: TROY Gould CRNA [facility] 03-04-2025 Note Airway Date/Time: 03/04/2025 7:12 AM Reason: scheduled Airway not difficult General Information and Staff Patient location during procedure: Procedural Resident/LOAN WORKOUT OFFICER: TROY Gould CRNA Performed: LOAN WORKOUT OFFICER Patient Condition Indications for airway management: anesthesia [...] 1 Number of other approaches attempted: 0 [facility] 03-04-2025 Attending History and physical note H&P reviewed. The patient was examined and there are no changes to the H&P. Source Note - Jewel Lane MD - 02/09/2025 3:15 PM EDT Images from the original note were not included. [facility] CARDIOVASCULAR & THORACIC SURGERY [address] [facility] [address] Dept: [phone] Dept Loc: [phone] Visit type: New Reason for Visit: Evaluation of multivessel coronary artery disease Assessment: 1. Coronary artery disease of [place] artery of [place] heart with stable angina pectoris (HCC) Recommendations: [...] 12%. Echocardiogram is scheduled on 02/10/25 at [place]. Pt is here now for an evaluation. [...] This note may have been dictated using [employer] Practice Edition 2.6 and/or F[employer] Voice Recognition Feature. The document was proofread, however unrecognized voice recognition braided rug maker errors may be present. [1] Past Medical [...] crush or chew., Disp: , Rfl: [facility] [employer] Work Phone: 03-04-2025 History and physical note H&P reviewed. The patient was examined and there are no changes to the H&P. Source Note - Jewel Lane MD - 02/09/2025 3:15 PM EDT Images from the original note were not included. [facility] CARDIOVASCULAR [facility] THORACIC SURGERY [address] [facility] [address] Dept: [phone] Dept Loc: [phone] Visit type: New Reason for Visit: Evaluation of multivessel coronary artery disease Assessment: 1. Coronary artery disease of [place] artery of [place] heart with stable angina pectoris (HCC) Recommendations: [...] 12%. Echocardiogram is scheduled on 02/10/25 at [place]. Pt is here now for an evaluation. [...] This note may have been dictated using [employer] Practice Edition 2.6 and/or [employer] Voice Recognition Feature. The document was proofread, however unrecognized voice recognition braided rug maker errors may be present. [1] Past Medical [...] Disp: , Rfl: documented in this encounter [facility] 03-04-2025 Note H&P reviewed. The pa vincent was examined and there are no changes to the H&P. 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 Procedures CORONARY ARTERY BYPASS GRAFT 43064 - OR CABG W/ARTERIAL GRAFT THREE ARTERIAL GRAFTS ECHOCARDIOGRAM, TRANSESOPHAGEAL 01808 - OR ECHO TRANSESOPHAG R-T 2D W/PRB IMG ACQUISJ [...] (mL) 30 mL 03/04/25 1218 NG/OG Tube [facility] mouth (Active) Placement Verification Auscultation 03/04/25 1218 [...] Lane MD 03/04/25 1133 Description: XIPHOID Staff: Spa Assistant Manager: Randall Lmab RN Relief Spa Assistant Manager: Jennifer Fairchild RN Scrub Person: Romeo Sims [...] Lane MD Cardiothoracic Surgeon 03/04/25 12:52 PM [facility] [employer] 03-04-2025 Note Patient: Wallace Poe rd Procedure Information Date/Time: 03/04/25 0700 Procedures: CORONARY ARTERY BYPASS GRAFT (Chest) ECHOCARDIOGRAM, TRANSESOPHAGEAL Location: [facility] Operating Room Surgeons: Jewel Lane MD Relevant Problems Cardio (+) CAD in [place] artery Past Medical History: Past Medical History: [...] Heart attack Mother Stroke Mother Diabetes Father [facility] 03-04-2025 Nurse Note Message sent regarding no bacitracin ointment and swish and spit ordered. [facility] 03-03-2025 Telephone encounter Note Instructed Wallace [...] He has no questions at this time. [facility] 03-03-2025 Miscellaneous Notes Instructed Wallace to [...] questions at this time. Addended by: RICHARD MARQUEZ. on: 03/03/2025 01:10 PM Modules accepted: Orders [...] he is undergoing heart bypass surgery at [facility] on Sunday 03/04. We discussed post-operative diabetes [...] Called pt let him know he can sisal picker script later today. Name of caller: Wallace Contact phone number: [phone] Relationship to Patient: patient Provider: Jimmy JEFF Practice: Endo Chief Complaint/Reason for Call: Pt states insurance needs a PA for medication insulin glargine (Lantus) 100 UNIT/ML pen [[id number]] Or if an alternative needs to be [...] their call: Yes documented in this encounter [facility] 03-03-2025 Note Addended by: RICHARD GALLARDO on: 03/03/2025 01:10 PM Modules accepted: Orders [facility] 03-03-2025 Note Addended by: RICHARD GALLARDO on: 03/03/2025 01:10 PM Modules accepted: Orders [facility] 03-03-2025 Note Addended by: RICHARD GALLARDO on: 03/03/2025 01:10 PM Modules accepted: Orders [facility] 03-03-2025 Telephone encounter Note Hi Crystal, Can [...] the patient. Thank you! Richard Marquez PA-C [facility] 03-02-2025 Telephone encounter Note Spoke with [...] he is undergoing heart bypass surgery at [facility] on Sunday 03/04. We discussed post-operative diabetes management and possibility of increased insulin dosing after his surgery for a period of time. Answered all questions to satisfaction. Dexcom download is on media tab for review though has only had sensor on since last week office visit. [facility] 03-02-2025 Miscellaneous Notes Spoke with Wallace [...] he is undergoing heart bypass surgery at [facility] on Sunday 03/04. We discussed post-operative diabetes [...] Called pt let him know he can sisal picker script later today. Name of caller: Wallace Contact phone number: [phone] Relationship to Patient: patient Provider: Jimmy JEFF Practice: Endo Chief Complaint/Reason for Call: Pt states insurance needs a PA for medication insulin glargine (Lantus) 100 UNIT/ML pen [[id number]] Or if an alternative needs to be [...] their call: Yes documented in this encounter [facility] 03-01-2025 Telephone encounter Note LVM for patient. Gave patient msg as written by provider. [facility] [employer] 03-01-2025 Miscellaneous Notes LVM for patient. Gave [...] Called pt let him know he can sisal picker script later today. Name of caller: Wallace Contact phone number: [phone] Relationship to Patient: patient Provider: Jimmy JEFF Practice: Endo Chief Complaint/Reason for Call: Pt states insurance needs a PA for medication insulin glargine (Lantus) 100 UNIT/ML pen [[id number]] Or if an alternative needs to be [...] their call: Yes documented in this encounter [facility] 02-28-2025 Telephone encounter Note Hi Larissa, [...] under 70. Thank you! Richard Marquez PA-C [facility] 02-28-2025 Miscellaneous Notes Michael Dias, Patient [...] Called pt let him know he can sisal picker script later today. Name of caller: Wallace Contact phone number: [phone] Relationship to Patient: patient Provider: Jimmy JEFF Practice: Endo Chief Complaint/Reason for Call: Pt states insurance needs a PA for medication insulin glargine (Lantus) 100 UNIT/ML pen [[id number]] Or if an alternative needs to be [...] their call: Yes documented in this encounter [facility] 02-28-2025 Telephone encounter Note Patient's further questions if applicable: Pt states he would like to discuss new insulin he has some questions regarding his numbers. Please advise. [facility] 02-28-[address] Lane case cancelled. Patient IV removed at this time. [facility] 02-28-[address] Lane case cancelled. Patient IV removed at this time. Blood sugar 202 no sliding scale insulin orders at this time. Per Dr. Clarke patient will be monitored in OR and will be covered as needed. No insulin orders given at this time. documented in this encounter [facility] 02-28-2025 Nurse Note Blood sugar 202 no sliding scale insulin orders at this time. Per Dr. Clarke patient will be monitored in OR and will be covered as needed. No insulin orders given at this time. [facility] 02-25-2025 Telephone encounter Note Called pharmacy, Lantus went through. Called pt let him know he can sisal picker script later today. [employer] [employer] 02-25-2025 Telephone encounter Note Name of caller: Wallace Contact phone number: [phone] Relationship to Patient: patient Provider: Jimmy JEFF Practice: [facility] Chief Complaint/Reason for Call: Pt states insurance needs a PA for medication insulin glargine (Lantus) 100 UNIT/ML pen [[id number]] Or if an alternative needs to be sent in. Pt wants to make urgently aware needs BSL levels down prior to bypass surgery on 02/28/25. Pt is at 300 BSL and needs to be at 250 or lower Best time of day caller can be reached: Any Patient advised that office/PCP has 24-48 business hours to return their call: Yes [facility] [employer] 02-25-2025 Telephone encounter Note Noted. Notified pt's . Discussed the importance of compliance with medications and diet. She verbalizes understanding. Closing encounter. [employer] Work Phone: 02-25-2025 Miscellaneous Notes Noted. Notified pt's . Discussed the importance of compliance with medications and diet. She verbalizes understanding. Closing encounter. Patient present to [facility] prior to: Case: [id number] Date/Time: 02/28/25 0730 Procedures: CORONARY ARTERY BYPASS GRAFT (Chest) [96230 CPT(R)] TRANSESOPHAGEAL ECHOCARDIOGRAM [34205 CPT(R)] Diagnosis: Atherosclerotic heart disease of [place] coronary artery with other forms of angina pectoris (HCC) [I25.118] Location: [facility] OR Operating Room Surgeons: Jewel Lane MD Current A1c 11.1. He saw endocrinology today. See notes below from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 of the information to criminally investigate or prosecute any alcohol or drug abuse patient.[facility] Hospital[facility] the event this information is protected by the Federal Confidentiality of Alcohol and Drug Abuse Patient Records regulations: The Federal rules restrict any use of the information to criminally investigate or prosecute any alcohol or drug abuse patient.[facility] Hospital[facility] the event this information is protected by the Federal Confidentiality of Alcohol and Drug Abuse Patient Records regulations: The Federal rules restrict any use of the information to criminally investigate or prosecute any alcohol or drug abuse patient.[facility] HospitalIn the event this information is protected by the Federal Confidentiality of Alcohol and Drug Abuse Patient Records regulations: The Federal rules restrict any use of the information to criminally investigate or prosecute any alcohol or drug abuse patient.[facility] Hospital[facility] the event this information is protected by the Federal Confidentiality of Alcohol and Drug Abuse Patient Records regulations: The Federal rules restrict any use of the information to criminally investigate or prosecute any alcohol or drug abuse patient.[facility] Hospital[facility] the event this information is protected by the Federal Confidentiality of Alcohol and Drug Abuse Patient Records regulations: The Federal rules restrict any use of the information to criminally investigate or prosecute any alcohol or drug abuse patient.[facility] HospitalIn the event this information is protected by the Federal Confidentiality of Alcohol and Drug Abuse Patient Records regulations: The Federal rules restrict any use of the information to criminally investigate or prosecute any alcohol or drug abuse patient.[facility] HospitalIn the event this information is protected by the Federal Confidentiality of Alcohol and Drug Abuse Patient Records regulations: The Federal rules restrict any use of the information to criminally investigate or prosecute any alcohol or drug abuse patient.[facility] HospitalIn the event this information is protected by the Federal Confidentiality of Alcohol and Drug Abuse Patient Records regulations: The Federal rules restrict any use of the information to criminally investigate or prosecute any alcohol or drug abuse patient.[facility] HospitalIn the event this information is protected by the Federal Confidentiality of Alcohol and Drug Abuse Patient Records regulations: The Federal rules restrict any use of the information to criminally investigate or prosecute any alcohol or drug abuse patient.[facility] HospitalIn the event this information is protected by the Federal Confidentiality of Alcohol and Drug Abuse Patient Records regulations: The Federal rules restrict any use of the information to criminally investigate or prosecute any alcohol or drug abuse patient.[facility] HospitalIn the event this information is protected by the Federal Confidentiality of Alcohol and Drug Abuse Patient Records regulations: The Federal rules restrict any use of the information to criminally investigate or prosecute any alcohol or drug abuse patient.[facility] HospitalIn the event this information is protected by the Federal Confidentiality of Alcohol and Drug Abuse Patient Records regulations: The Federal rules restrict any use of the information to criminally investigate or prosecute any alcohol or drug abuse patient.[facility] HospitalIn the event this information is protected by the Federal Confidentiality of Alcohol and Drug Abuse Patient Records regulations: The Federal rules restrict any use of the information to criminally investigate or prosecute any alcohol or drug abuse patient.[facility] Reason for Visit (unrecogniz ed section and content) Reason Comments Rash possible posion eri all over x 5 days Reason Comments F/U 6 months Specialty Diagnoses / Procedures Referred By Contac t Referred To Contact Family Practice / FAMILY MEDICINE Diagnoses 6 month f/u Procedures OFFICE/OUTPATIENT ESTABLISHED MOD MDM 30-39 MIN 4C EST Liliana Rios PA-C [address] [place] [address] Oswald Quarles MD [address] [place] [address] Referral ID Status Reason Start Date Expiration Date Visits Re quested Visits Authorized [id number] Closed 07/14/2021 07/13/2022 1 1 Reason Comments Results Reason Comments Consult Erectile Dysfunction Specialty Diagnoses / Procedures Referred By Contac t Referred To Contact Urology / FAMILY MEDICINE Diagnoses Erectile dysfunction, unspecified erectile dysfunction type Low testosterone in male Procedures CONSULT TO UROLOGY OFFICE/OUTPATIENT NEW HIGH MDM 60-74 MINUTES Oswald Quarles MD [address] [place] [address] [facility] [address] [place] [address] Referral ID Status Reason Start Date Expiration Date V isits Requested Visits Authorized [id number] Closed PCP Requested Referral 03/08/2022 07/13/2022 2 2 Reason Comments [facility] Fax Reason Comments Physical Reason Comments Follow Up 1 month FU BP Specialty Diagnoses / Procedures Referred By Contac t Referred To Contact Family Medicine / FAMILY MEDICINE Diagnoses Follow-up exam 1 month follow up Procedures OFFICE/OUTPATIENT ESTABLISHED MOD MDM 30-39 MIN 4C EST Oswald Quarles MD [address] [place] [address] Liliana Rios PA-C [address] [place] [address] Referral ID Status Reason Start Date Expiration Date Visits Re quested Visits Authorized [id number] Closed 09/12/2022 07/13/2023 1 1 Reason Comments Results Reason Comments Radiology NM Specialty Diagnoses / Procedures Referred By Contac t Referred To Contact MOLECULAR & FUNCTIONAL IMAGING Diagnoses Coronary artery disease involving [place] coronary artery of [place] heart without angina pectoris Encounter for screening for cardiovascular disorders Procedures NM CARDIAC PERF STRESS/EXERCISE MYOCARDIAL SPECT MULTIPLE STUDIES Veronica Cheng, LAUNDRY HOUSEKEEPING AIDE.MANAGER WINTER [address] [place] [address] [place], [place] [id number] Molecular & Functional Imaging [address] [place] [address] Referral ID Status Reason Start Date Expiration Date V isits Requested Visits Authorized [id number] Closed Auto-Generate d Referral 12/16/2022 07/13/2023 1 1 Specialty Diagnoses / Procedures Referred By Contac t Referred To Contact MOLECULAR & FUNCTIONAL IMAGING Diagnoses Coronary artery disease involving [place] coronary artery of [place] heart without angina pectoris Encounter for screening for cardiovascular disorders Procedures NM CARDIAC PERF STRESS/EXERCISE MYOCARDIAL SPECT MULTIPLE STUDIES Veronica Cheng, LAUNDRY HOUSEKEEPING AIDE.MANAGER WINTER [address] [place] [address] [place] [address] Molecular & Functional Imaging [address] [place] [address] Reason Comments ED Follow-up 05/31/23 from [facility] [place] Reason Comments ER F/U Reason Comments type 2 diabetes Specialty Diagnoses / Procedures Referred By Contac t Referred To Contact Endocrinology Diagnoses Type 2 diabetes mellitus with peripheral neuropathy (HCC) 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) Type 2 diabetes mellitus without retinopathy (HCC) Procedures CONSULT TO ENDOCRINOLOGY OFFICE/OUTPATIENT [facility] 60-74 MINUTES Oswald Quarles MD [address] [place] [address] Referral ID Status Reason Start Date Expiration Date V isits Requested Visits Authorized [id number] Closed PCP Requested Referral 06/14/2023 2024 1 1 Reason Comments New Patient Reason Onset Date Comments Surgery Scheduling 02/16/2025 Reason Comments New Patient Diabetes Mellitus Specialty Diagnoses / Procedures Referred By Contac t Referred To Contact Endocrinology Diagnoses Hemoglobin A1c 8.0% or greater Procedures OR OFFICE/OUTPATIENT [facility] [address] MD [address] [place] [address] [address] [place] [address] Phone: tel: fax: [facility] Endocrinology - [address] [place] [address] Phone: tel: fax: Referral ID Status Reason Start Date Expiration Date V isits Requested Visits Authorized [id number] Closed Specialty Services Required 02/09/2025 02/09/2026 1 1 Reason Onset Date Comments Medication Problem 02/25/2025 Prior Authorization 02/25/2025 Reason Onset Date Comments Medication Problem 02/25/2025 Prior Authorization 02/25/2025 Diabetes 02/25/2025 Reason Onset Date Comments Other 02/22/2025 Reason Comments Post-op Care Teams (unrecognized sec tion and content) Foreign Service Officer Relationship Specialty Start Date End Date Oswald Quarles MD [address] [place], [place] [address] PCP - General Family Practice 02/25/14 Sage Leonard [facility] [address] [place], [place] [address] Pharmacist Pharmacy 04/15/19 Foreign Service Officer Relationship Specialty Start Date End Date Oswald Quarles MD [address] [place] [address] PCP - General Family Practice 02/25/14 Sage Leonard, [facility] [address] [place] [address] Pharmacist Pharmacy 04/15/19 Foreign Service Officer Relationship Specialty Start Date End Date Oswald Quarles MD [address] [place] [address] PCP - General Family Practice 02/25/14 Sage Leonard, [facility] [address] [facility] [place] [address] Pharmacist Pharmacy 04/15/19 Foreign Service Officer Relationship Specialty Start Date End Date Oswald Quarles MD [address] [facility] [place] [address] PCP - General Family Practice 02/25/14 Sage Leonard, [facility] [address] [place] [address] Pharmacist Pharmacy 04/15/19 Foreign Service Officer Relationship Specialty Start Date End Date Oswald Quarles MD [address] [facility] [place] [address] PCP - General Family Practice 02/25/14 Sage Leonard, [facility] [address] [place] [address] Pharmacist Pharmacy 04/15/19 Foreign Service Officer Relationship Specialty Start Date End Date Oswald Quarles MD [address] [facility] [place] [address] PCP - General Family Medicine 02/25/14 Sage Leonard, [facility] [address] [place] [address] Pharmacist Pharmacy 04/15/19 Foreign Service Officer Relationship Specialty Start Date End Date Oswald Quarles MD [address] [place] [address] PCP - General Family Medicine 02/25/14 Sage Leonard, [facility] [address] [facility] [place] [address] Pharmacist Pharmacy 04/15/19 Foreign Service Officer Relationship Specialty Start Date End Date Oswald Quarles MD [address] [place] [address] PCP - General Family Medicine 02/25/14 Sage Leonard, [facility] [address] [facility] [place] [address] Pharmacist Pharmacy 04/15/19 Foreign Service Officer Relationship Specialty Start Date End Date Oswald Quarles MD [address] [place] [address] PCP - General Family Medicine 02/25/14 Sage Leonard, [facility] [address] [place] [address] Pharmacist Pharmacy 04/15/19 Foreign Service Officer Relationship Specialty Start Date End Date Oswald Quarles MD [address] [place] [address] PCP - General Family Medicine 02/25/14 Sage Leonard, [facility] [address] [facility] [place] [address] Pharmacist Pharmacy 04/15/19 Foreign Service Officer Relationship Specialty Start Date End Date Oswald Quarles MD [address] [place] [address] PCP - General Family Medicine 02/25/14 Sage Leonard, [facility] [address] [place] [address] Pharmacist Pharmacy 04/15/19 Foreign Service Officer Relationship Specialty Start Date End Date Oswald Quarles MD [address] [facility] [place] [address] PCP - General Family Medicine 02/25/14 Sage Leonard, [facility] [address] [place] [address] Pharmacist Pharmacy 04/15/19 Foreign Service Officer Relationship Specialty Start Date End Date Oswald Quarles MD [address] [place] [address] PCP - General Family Medicine 02/25/14 Sage Leonard, [facility] [address] [facility] [place] [address] Pharmacist Pharmacy 04/15/19 Foreign Service Officer Relationship Specialty Start Date End Date Oswald Quarles MD [address] [facility] [place] [address] PCP - General Family Medicine 02/25/14 Sage Leonard, [facility] [address] [place] [address] Pharmacist Pharmacy 04/15/19 Foreign Service Officer Relationship Specialty Start Date End Date Oswald Quarles MD [address] [facility] [place] [address] PCP - General Family Medicine 02/25/14 Sage Leonard, [facility] [address] [place] [address] Pharmacist Pharmacy 04/15/19 Foreign Service Officer Relationship Specialty Start Date End Date Oswald Quarles MD [address] [place] [address] PCP - General Family Medicine 02/25/14 AndrewnavyaSage, [facility] [address] [place] [address] Pharmacist Pharmacy 04/15/19 Foreign Service Officer Relationship Specialty Start Date End Date Oswald Quarles MD [address] [place] [address] PCP - General Family Medicine 02/25/14 Foreign Service Officer Relationship Specialty Start Date End Date Oswald Quarles MD [address] [place] [address] PCP - General Family Medicine 02/25/14 Foreign Service Officer Relationship Specialty Start Date End Date Oswald Quarles MD [address] [place] [address] PCP - General Family Medicine 02/25/14 Foreign Service Officer Relationship Specialty Start Date End Date Oswald Quarles MD [address] [place], [place] [address] PCP - General Family Medicine 02/25/14 Team [...] Provider Active S tart: February 10, 2025 Foreign Service Officer Relationship Specialty Start Date End Date Jewel Lane MD [address] [place], [place] [id number] Cardiothoracic Surgery 02/24/25 Foreign Service Officer Relationship Specialty Start Date End Date Jewel Lane MD [address] [place], [place] [id number] Cardiothoracic Surgery 02/24/25 Foreign Service Officer Relationship Specialty Start Date End Date Jewel Lane MD [address] [place], [place] [id number] Cardiothoracic Surgery 02/24/25 Foreign Service Officer Relationship Specialty Start Date End Date Jewel Lane MD [address] [place], [place] [id number] Cardiothoracic Surgery 02/24/25 Foreign Service Officer Relationship Specialty Start Date End Date Jewel Lane MD [address] [place], [place] [id number] Cardiothoracic Surgery 02/24/25 Foreign Service Officer Relationship Specialty Start Date End Date Jewel Lane MD [address] [place], [place] [id number] Cardiothoracic Surgery 02/24/25 Foreign Service Officer Relationship Specialty Start Date End Date Jewel Lane MD [address] [place], [place] [id number] Cardiothoracic Surgery 02/24/25 Team Status: Active Member [...] February 25, 2025 End: February 25, 2025 Foreign Service Officer Relationship Specialty Start Date End Date Jewel Lane MD [address] [place], [place] [phone] Cardiothoracic Surgery 02/24/25 Foreign Service Officer Relationship Specialty Start Date End Date Jewel Lane MD [address] [place], [place] [phone] Cardiothoracic Surgery 02/24/25 Foreign Service Officer Relationship Specialty Start Date End Date Jewel Lane MD 1 [facility] [place] [address] Cardiothoracic Surgery 02/24/25 Foreign Service Officer Relationship Specialty Start Date End Date Jewel Lane [facility] [place] [place] [address] Cardiothoracic Surgery 02/24/25 Team Status: Active Member [...] section and content) DATE CREATED AUTHOR 03/10/2022 [facility] DATE CREATED AUTHOR AUTHOR'S ORGANIZ ATION 06/02/2023 [facility] DATE CREATED AUTHOR AUTHOR'S ORGANIZ ATION 06/21/2023 [facility] DATE CREATED AUTHOR AUTHOR'S ORGANIZ ATION 10/16/2023 [facility] DATE CREATED AUTHOR AUTHOR'S ORGANIZ ATION 03/05/2025 [facility] DATE CREATED AUTHOR AUTHOR'S ORGANIZ ATION 03/16/2025 [facility] Goals (unrecognized section [...] Delicia Perla RN)2051 (Given - Provider: Tatum Ruggieor RN) 0615 (Given - Provider: Rachael Zavala [...] Do not swallow. 0935 (Given - Provider: Delicia Perla RN)2050 [...] Zamora RN) 0833 (Not Given - Provider: Deilcia Abdul RN - Reason: Patient/family refused)1312 (Not [...] sedation for opioid reversal - MUST notify contract project manager provider immediately after first dose, may give [...] BE BASED ON THE PRIMARY CLINICAL RECORDS. [facility]. provides no warranty or guarantee of the accuracy or completeness of information in this document.
[2025-03-17] MEDS: MELATONIN 10 MG TABLET PO (23:53)
[2025-03-18] VITALS (22 sets, daily range): BP systolic 97–161; BP diastolic 68–101; PULSE 78–92; RESP 8–91; TEMP 36.4–37.2; O2SAT 94–99; BMI 28.5
[2025-03-18 03:15] LABS: Partial Thromboplast Time 38.8 Seconds (24.1-36.2)
[2025-03-18] MEDS: Heparin Nomogram Adjustment 5,000 UNIT/ML VIAL IV (03:50)
[2025-03-18 05:24] LABS: Hematocrit 33.6 % (40-54); Hemoglobin 11.3 g/dL (13.0-16.5); Immature Granulocytes Count 0.040 X10^3/uL (0.0-0.0); Mean Corp Hgb Conc 33.6 g/dL (32-36); Mean Corpuscular Volume 85.3 fL (80-94); Mean Platelet Vol. 9.4 fl (6.2-12.0); NRBC Flagged by Analyzer 0 % (0-5); Platelet Count 374 K/mm3 (150-450); RBC Distribution Width CV 13.7 % (11.6-14.6); RBC Distribution Width SD 42.7 fl (35.1-43.9); Red Blood Count 3.94 M/mm3 (4.6-6.2); White Blood Count 7.8 K/mm3 (4.4-11.0)
[2025-03-18 05:41] LABS: Anion Gap 11 (5-15); BUN 12 mg/dL (4-19); BUN/Creat Ratio 17.5 RATIO (10-20); Calcium,Total 8.9 mg/dL (7.6-11.0); Carbon Dioxide 23.1 mmol/L (21.0-32.0); Chloride 103 mmol/L (98-108); Estimated Creatinine Clearance 139.52 ml/min (50-250); Glucose 208 mg/dL (70-99); Magnesium 1.9 mg/dL (1.5-2.2); Potassium 4.1 mmol/L (3.3-5.1)
[2025-03-18 05:53] LABS: Cholesterol 107 mg/dL (<=200); Low Density Lipoprotein Calc. 44 mg/dL; Triglycerides 82 mg/dL; Very Low Density Lipoprotein 16 mg/dL (5-40); cholesterol:hdl ratio screen 2.27
[2025-03-18 09:13] LABS: ACT Activated Clotting Time 135 sec (74-137)
--- NOTE | 2025-03-18 09:21 | CASEMGMT ---
This bond underwriter collaborated with the hospitalist who reports that the pt may need transfer back to [facility] and that the MD is awaiting a return call from the facility. CM to follow for needs.
[2025-03-18] MEDS: Aspirin E.C. 81 MG Tablet PO (09:32)
[2025-03-18] MEDS: Metoprolol(XL)Succ 50 MG Tablet PO (09:33)
[2025-03-18] MEDS: TICAGRELOR 90 MG TABLET PO ×2 (09:34→21:42)
--- NOTE | 2025-03-18 10:31 | CRPHASE1 ---
Patient Communication Patient Information Former Patient:: Phase I PHII Cardiac Rehab Discussed with Patient:: Yes Guide to Cardiac Rehab Given to Patient:: Yes Cardiac Rehab Facility Choice List Given to Patient:: Yes Communication to Cardiac Rehab Choice Program [facility] CR PHII:: Communication Given to CR Choice Program Other:: Communication Given to CR Pressure Tester Operator:: Karen Galloway Phase II Cardiac Rehab:: Yes Sessions:: 36 sessions - 3 days/wk, 12 weeks Cardiac Rehabilitation Info Program Information Cardiac Rehabilitation Program Information: Cardiac Rehab The cardiac rehab team at [facility] consists of highly skilled exercise physiologists, nurses, respiratory therapists and physicians working together with you. Our purpose is to help you have a full recovery and achieve the goals you set for yourself. Over the years many of our patients have returned to activities they assumed they would never do again! We can help restore your confidence and motivation to make lifestyle changes that can have a significant impact on your health and quality of life! We can help answer questions and concerns you may have about exercise, lifestyle, medications, diet, stress and anxiety which are common following a hospitalization. WE monitor ECG and vital signs during exercise and discuss your progress with you and report to your physician(s). Cardiac Rehab is proven to help reduce readmissions, improve functional capacity and lower recurrence of problems with your heart. Our Cardiac Rehab program is Certified by the [place] [employer] of Cardio-Vascular and Pulmonary Rehabilitation (AACVPR) and Accredited by the [place] [employer] through our [facility]. You can contact us at . We invite you to call us with your questions or to get started in our program. If you have other questions or concerns be sure to ask your physician/provider during your follow-up visit. WE look forward to seeing you!
--- NOTE | 2025-03-18 10:31 | CRPH1.INSTRU ---
General Education Discussed with Patient CAD and cardiac anatomy and function:: Patient communicates acknowledgment Explanation of diagnoses and procedures:: Patient communicates acknowledgment Sign/Symptoms of DC:: Patient communicates acknowledgment Antiplatelet therapy: Patient communicates acknowledgment Proper use of NTG-SL: Patient communicates acknowledgment Emergency procedures and activation of EMS: Patient communicates acknowledgment Compliance of all prescribed medications: Patient communicates acknowledgment Smoking Risk Factors Patient Nicotine/Smoking Risk Factors Are:: Second-hand smoke Recommendations Recommendations Include:: Second-hand smoke recommendation Response Code Nicotine/Smoking Response Code:: Patient communicates acknowledgment Dyslipidemia Recommendations Recommendations Include:: Lipid profile not available Response Code Dyslipidemia Response Code:: Patient communicates acknowledgment Overweight/Obesity Risk Factors Patient Overweight/Obesity Risk Factors Are:: BMI Normal [24-29 & > 65 years old] Response Code Overweight/Obesity:: Patient communicates acknowledgment Hypertension Recommendations Recommendations Include:: Maintain BP <130/85 Response Code Hypertension:: Patient communicates acknowledgment Heart Disease Risk Factors Patient Heart Disease Risk Factors Are:: Previous cardiac event Recommendations Recommendations Include:: Educated family members of their risk Response Code Heart Disease Response Code:: Patient communicates acknowledgment Diabetes Recommendations Recommendations Include:: Maintain fasting blood sugars 70-110 md/dL and Maintain HgbA1c of 6% or less Response Code Diabetes:: Patient communicates acknowledgment Metabolic Syndrome Recommendations Recommendations Include:: Does not meet criteria Response Code Metabolic Syndrome Response Code:: Patient communicates acknowledgment Sedentary Recommendations Recommendations Include:: Monitored Outpatient Cardiac Rehab Response Code Sedentary Response Code:: Patient communicates acknowledgment Stress Recommendations Recommendations Include:: Identification of stressors, and assessment of coping skills and Stress management techniques Response Code Stress Response Code:: Patient communicates acknowledgment
--- NOTE | 2025-03-18 10:59 | EKG12_ITS ---
Test Reason : CATH Blood Pressure : */* mmHG Vent. Rate : 98 BPM Atrial Rate : 98 BPM P-R Int : 176 ms QRS Dur : 110 ms QT Int : 392 ms P-R-T Axes : 61 51 66 degrees QTcB Int : 500 ms Normal sinus rhythm Nonspecific T wave abnormality Abnormal ECG When compared with ECG of 17-Mar-2025 15:03, MANUAL COMPARISON REQUIRED DATA IS UNCONFIRMED Confirmed by Miguel Martinez ([id number]), field map editor JENIFFER PETTY ([id number]) on 03/21/2025 10:13:07 AM Referred By: Karen Galloway Confirmed By: Miguel Martinez
--- NOTE | 2025-03-18 11:16 | ECQM.STEMI ---
STEMI STEMI ED Door Time / Other REG STEMI EKG Time (1) STEMI (ST elevation myocardial infarction): Acute 03/17/25 15:03 Balloon/Aspiration Date-Time Date of Balloon/Aspiration:: 03/17/25 Time of Balloon/Aspiration:: 15:59
[2025-03-18 12:32] LABS: Troponin T High Sensitivity 1806 ng/L (<=22)
--- NOTE | 2025-03-18 14:07 | CASEMGMT ---
Tertiary Insurance review for hospitals In-network with [employer] EX[employer]ANGE insurance if transfer is recommended is as follows: [facility], [place], [facility], [facility], [facility], and [place]. Junie Perez, Discharge Planning Asst.
--- NOTE | 2025-03-18 15:52 | PCM.PN.CARD ---
Subjective Subjective Patient has had on and off chest pain but currently is feeling better with no significant anginal chest pain. He does have on and off musculoskeletal chest pain from his CABG as well. Objective Data Vital Signs: Vital Signs Temp Pulse Resp BP Pulse Ox O2 Del Method 98.1 F 83 12 127/76 H 97 Room Air 03/18/25 08:00 03/18/25 14:00 03/18/25 14:00 03/18/25 14:00 03/18/25 14:00 03/18/25 14:00 Oxygen Delivery Method Room Air Weight: 198 lb 13.711 oz Body Mass Index (BMI) 28.5 Intake & Output: Intake and Output for Last 24 Hours 03/16/25 03/17/25 03/18/25 23:59 23:59 23:59 Intake Total 454.66 / 454.66 Output Total 2575 / 3075 1825 / 1825 Balance -2575 / -3075 -1370.34 / -1370.34 Lab / Micro Data 03/18/25 05:15 03/18/25 05:15 Labs: Laboratory Results - last 24 hr 03/17/25 18:30: Troponin T Hi Sens 2 Hr 430 H* 03/17/25 20:35: WBC 7.7, RBC 3.93 L, Hgb 11.4 L, Hct 33.9 L, MCV 86.3, MCH 29.0, MCHC 33.6, RDW Std Deviation 42.8, RDW Coeff of Salma 13.7, Plt Count 382, MPV 9.5, Immature Gran % (Auto) 0.500, Neut % (Auto) 76.1 H, Lymph % (Auto) 14.1 L, [place] % (Auto) 5.4, Eos % (Auto) 3.0, Baso % (Auto) 0.9, Absolute Neuts (auto) 5.8, Absolute Lymphs (auto) 1.08, Nucleated RBC % 0, PT 13.5, INR 1.0, APTT 25.2, Troponin T Hi Sens 4Hr 1279 H* 03/17/25 20:37: POC Glucose 188 H 03/17/25 23:46: POC Glucose 174 H 03/18/25 02:50: APTT 38.8 H 03/18/25 05:15: WBC 7.8, RBC 3.94 L, Hgb 11.3 L, Hct 33.6 L, MCV 85.3, MCH 28.7, MCHC 33.6, RDW Std Deviation 42.7, RDW Coeff of Salma 13.7, Plt Count 374, MPV 9.4, Immature Gran % (Auto) 0.500, Neut % (Auto) 74.0 H, Lymph % (Auto) 14.6 L, [place] % (Auto) 5.9, Eos % (Auto) 4.1, Baso % (Auto) 0.9, Absolute Neuts (auto) 5.8, Absolute Lymphs (auto) 1.14, Nucleated RBC % 0, Sodium 137, Potassium 4.1, Chloride 103, Carbon Dioxide 23.1, Anion Gap 11, BUN 12, Creatinine 0.66 L, Estim Creat Clear Calc 139.52, Est GFR (MDRD) Non-Af 109, BUN/Creatinine Ratio 17.5, Glucose 208 H, Hemoglobin A1c 9.7 H, Calcium 8.9, Magnesium 1.9, Triglycerides 82, Cholesterol 107, LDL Cholesterol, Calc 44, VLDL Cholesterol 16, HDL Cholesterol 47, Cholesterol/HDL Ratio 2.27 03/18/25 05:20: POC Glucose 189 H 03/18/25 08:59: Activated Clotting Time 135 03/18/25 11:45: Troponin T High Sens 1806 H* D 03/18/25 12:14: POC Glucose 178 H Cardiology Labs/Tests 03/17/25 20:35: WBC 7.7, RBC 3.93 L, Hgb 11.4 L, Hct 33.9 L, MCV 86.3, MCH 29.0, MCHC 33.6, Plt Count 382, MPV 9.5, Immature Gran % (Auto) 0.500, Neut % (Auto) 76.1 H, Lymph % (Auto) 14.1 L, [place] % (Auto) 5.4, Eos % (Auto) 3.0, Baso % (Auto) 0.9, Absolute Neuts (auto) 5.8, Nucleated RBC % 0, PT 13.5, INR 1.0, APTT 25.2 03/18/25 02:50: APTT 38.8 H 03/18/25 05:15: WBC 7.8, RBC 3.94 L, Hgb 11.3 L, Hct 33.6 L, MCV 85.3, MCH 28.7, MCHC 33.6, Plt Count 374, MPV 9.4, Immature Gran % (Auto) 0.500, Neut % (Auto) 74.0 H, Lymph % (Auto) 14.6 L, [place] % (Auto) 5.9, Eos % (Auto) 4.1, Baso % (Auto) 0.9, Absolute Neuts (auto) 5.8, Nucleated RBC % 0, Sodium 137, Potassium 4.1, Chloride 103, Carbon Dioxide 23.1, Anion Gap 11, BUN 12, Creatinine 0.66 L, Est GFR (MDRD) Non-Af 109, BUN/Creatinine Ratio 17.5, Glucose 208 H, Hemoglobin A1c 9.7 H, Calcium 8.9, Magnesium 1.9, Triglycerides 82, Cholesterol 107, VLDL Cholesterol 16, HDL Cholesterol 47, Cholesterol/HDL Ratio 2.27 Rhythm: EKG: ECHO: Stress Test: Cardiac Cath: PCI: CT Surgery: Holter monitor: EPS: PPM: CXR: Chest CT Scan: Radiography Diagnostic Testing: Radiology Impression Echocardiogram 03/17/25 17:59 Interpretation Summary The estimated ejection fraction is 35 %. Trivial mitral valve insufficiency. Ordering Physician: Lita Saleem Referring Physician: Karen Galloway Performed By: Sarah Jaime RDCS Physical Exam Const alert, oriented x3 and no apparent distress HEENT normocephalic Eyes no scleral icterus Resp normal respiratory effort and clear to auscultation bilaterally Cardio regular rate Skin no rashes or lesions noted Psych mental status grossly normal Assessment & Plan Assessment/Plan (1) STEMI (ST elevation myocardial infarction): QUALIFIERS: Involved coronary artery: unspecified coronary artery Qualified Code(s): I21.3 - ST elevation (STEMI) myocardial infarction of unspecified site PLAN: Due to occlusion of SVG to severely diseased small diagonal 2 branch. Thrombectomy and PTCA was performed but there was no flow in the vessel at the end of the procedure due to poor outflow resulting in vein graft thrombosis. Recommend aspirin, Brilinta, statin, beta-liliana. Discussed with CT surgery service at [facility]. Patient's angiogram was also reviewed by them. No further intervention was recommended. Charges/Coding Visit Charges Inpatient E&M: 24372 Subs Hosp L2
--- NOTE | 2025-03-18 16:01 | PCM.PN.HOSP ---
Reason for Visit Chief Complaint: Chest pain Subjective Subjective Patient was seen and examined today, I talked extensively with cardiology about his care, [facility] having the patient go up to [facility] for evaluation by CT surgeon, they called back today and told Dr. Galloway that they did not feel the patient needed to go back up there for reevaluation. I talked briefly with the patient's by phone today and got a list of his medications. Objective Data Objective Data Vital Signs: Vital Signs Temp Pulse Resp BP Pulse Ox O2 Del Method 98.1 F 83 12 127/76 H 97 Room Air 03/18/25 08:00 03/18/25 14:00 03/18/25 14:00 03/18/25 14:00 03/18/25 14:00 03/18/25 14:00 Oxygen Delivery Method Room Air Weight: 90.2 kg Body Mass Index (BMI) 28.5 Intake & Output: Intake and Output for Last 24 Hours 03/16/25 03/17/25 03/18/25 23:59 23:59 23:59 Intake Total 454.66 / 454.66 Output Total 2575 / 3075 1825 / 1825 Balance -2575 / -3075 -1370.34 / -1370.34 Lab / Micro Data 03/18/25 05:15 03/18/25 05:15 Labs: Laboratory Results - last 24 hr 03/17/25 18:30: Troponin T Hi Sens 2 Hr 430 H* 03/17/25 20:35: WBC 7.7, RBC 3.93 L, Hgb 11.4 L, Hct 33.9 L, MCV 86.3, MCH 29.0, MCHC 33.6, RDW Std Deviation 42.8, RDW Coeff of Salma 13.7, Plt Count 382, MPV 9.5, Immature Gran % (Auto) 0.500, Neut % (Auto) 76.1 H, Lymph % (Auto) 14.1 L, [place] % (Auto) 5.4, Eos % (Auto) 3.0, Baso % (Auto) 0.9, Absolute Neuts (auto) 5.8, Absolute Lymphs (auto) 1.08, Nucleated RBC % 0, PT 13.5, INR 1.0, APTT 25.2, Troponin T Hi Sens 4Hr 1279 H* 03/17/25 20:37: POC Glucose 188 H 03/17/25 23:46: POC Glucose 174 H 03/18/25 02:50: APTT 38.8 H 03/18/25 05:15: WBC 7.8, RBC 3.94 L, Hgb 11.3 L, Hct 33.6 L, MCV 85.3, MCH 28.7, MCHC 33.6, RDW Std Deviation 42.7, RDW Coeff of Salma 13.7, Plt Count 374, MPV 9.4, Immature Gran % (Auto) 0.500, Neut % (Auto) 74.0 H, Lymph % (Auto) 14.6 L, [place] % (Auto) 5.9, Eos % (Auto) 4.1, Baso % (Auto) 0.9, Absolute Neuts (auto) 5.8, Absolute Lymphs (auto) 1.14, Nucleated RBC % 0, Sodium 137, Potassium 4.1, Chloride 103, Carbon Dioxide 23.1, Anion Gap 11, BUN 12, Creatinine 0.66 L, Estim Creat Clear Calc 139.52, Est GFR (MDRD) Non-Af 109, BUN/Creatinine Ratio 17.5, Glucose 208 H, Hemoglobin A1c 9.7 H, Calcium 8.9, Magnesium 1.9, Triglycerides 82, Cholesterol 107, LDL Cholesterol, Calc 44, VLDL Cholesterol 16, HDL Cholesterol 47, Cholesterol/HDL Ratio 2.27 03/18/25 05:20: POC Glucose 189 H 03/18/25 08:59: Activated Clotting Time 135 03/18/25 11:45: Troponin T High Sens 1806 H* D 03/18/25 12:14: POC Glucose 178 H Radiography Diagnostic Testing: Radiology Impression Echocardiogram 03/17/25 17:59 Interpretation Summary The estimated ejection fraction is 35 %. Trivial mitral valve insufficiency. Ordering Physician: Lita Saleem Referring Physician: Karen Galloway Performed By: Sarah Jaime, RDCJ Physical Exam Const alert, oriented x3, no apparent distress and healthy appearing General Appearance: cooperative, well kempt and well developed Orientation / Consciousness: awake, oriented to person, oriented to place and oriented to time HEENT normocephalic, head/scalp atraumatic and moist oral mucous membranes Eyes PERRL, EOMs intact bilaterally and conjunctivae normal Neck supple, no JVD, thyroid normal and no carotid bruits General: trachea midline Resp normal respiratory effort, no retractions, no use of accessory muscles and clear to auscultation bilaterally Auscultation: Negative for rales, rhonchi or wheezes Cardio regular rate, regular rhythm, S1 normal heart sound, S2 normal heart sound, no murmurs, no rub and no gallops GI normal to inspection, nondistended, normoactive bowel sounds, soft to palpation, non-tender and non-distended Extremity no clubbing, cyanosis or edema Skin no rashes or lesions noted General Skin Exam: no breakdown Neuro oriented x3, CN's II-XII intact bilaterally, no focal motor deficits and no sensory deficits noted Sensorium / Orientation: awake and alert Speech: speech normal Psych affect normal Assessment & Plan Assessment/Plan (1) STEMI (ST elevation myocardial infarction): QUALIFIERS: Involved coronary artery: unspecified coronary artery Qualified Code(s): I21.3 - ST elevation (STEMI) myocardial infarction of unspecified site PLAN: Plan 1. STEMI-status post thrombectomy and PTCA of the SVG small diagonal 2 branch, patient is now on dual antiplatelet therapy #2 type 2 diabetes-blood sugars will be monitored, sliding scale insulin will be administered if needed, I have started him on his home insulin regimen #3 hyperlipidemia-patient is on Lipitor 80 mg daily #4 ischemic cardiomyopathy-patient's EF is 35%-patient is on a beta-liliana and lisinopril Total clinical time spent by myself addressing the patient's medical issues, reviewing all of his data, and collaborating with patient's care team: 35-minute Charges/Coding Visit Charges Inpatient E&M: 15546 Subs Hosp L2
--- NOTE | 2025-03-18 16:02 | CASEMGMT ---
PEDRO WESTON Assessment: Face to Face with pt for initial transition planning/care coordination assessment. PEDRO WESTON introduced self and role at [facility], pt voices understanding and consents to assessment. Pt is A&O x4 and answers all questions appropriately at this time. Pt sitting up in bed in no distress with at bedside. Pt agreeable to assessment with present. Care providers, pharmacy, and demographics verified/updated. Admitting Dx: STEMI PCP:Pt does not currently have but plans to make an appt with [facility]. Specialists:Iva, cardio; Erica, cardiac surgeon; willie Marquez Preferred Pharmacy: [facility] Insurance: [employer] Prescription Benefit: yes LNOK: Sharda Arrington, Living Arrangements: Pt lives with in a two story home with 3 steps to enter with a rail. Pt reports he is indep in ADL/IADLs and denies concerns at home. Pt assists as needed since surgery. Transportation: Pt typically drives but has not since heart surgery. Pt transports pt until he is able to drive again. DME:BGM with sufficient strips and lancets, insulin with sufficient supply and needles HHC/SNF: Denies hx of Pt states no concerns with going home at time of dc. Pt has already checked in with cardiac rehab at [facility]. Pt has an appt 1 month post op and plans to start cardiac rehab once cleared. Pt states no further concerns/needs. CM to follow. Advised pt to ask CM if any further questions/concerns/needs arise, voices understanding. Pt Goal: Home Plan: Home Drake VASQUEZ CM
[2025-03-18] MEDS: Insulin Glargine-YFGN 100 UNIT/ML Pen 18 UNIT SC (21:47)
[2025-03-19] VITALS (13 sets, daily range): BP systolic 98–143; BP diastolic 60–82; PULSE 70–92; RESP 10–22; TEMP 36.3–36.7; O2SAT 94–98; BMI 28.5
[2025-03-19 06:10] LABS: Hematocrit 34.1 % (40-54); Hemoglobin 11.3 g/dL (13.0-16.5); Immature Granulocytes Count 0.030 X10^3/uL (0.0-0.0); Mean Corp Hgb Conc 33.1 g/dL (32-36); Mean Corpuscular Volume 86.3 fL (80-94); Mean Platelet Vol. 9.4 fl (6.2-12.0); NRBC Flagged by Analyzer 0 % (0-5); Platelet Count 367 K/mm3 (150-450); RBC Distribution Width CV 13.8 % (11.6-14.6); RBC Distribution Width SD 42.8 fl (35.1-43.9); Red Blood Count 3.95 M/mm3 (4.6-6.2); White Blood Count 6.5 K/mm3 (4.4-11.0)
[2025-03-19 06:59] LABS: Anion Gap 11 (5-15); BUN 16 mg/dL (4-19); BUN/Creat Ratio 21.0 RATIO (10-20); Calcium,Total 9.2 mg/dL (7.6-11.0); Carbon Dioxide 22.8 mmol/L (21.0-32.0); Chloride 104 mmol/L (98-108); Estimated Creatinine Clearance 121.16 ml/min (50-250); Glucose 208 mg/dL (70-99); Potassium 4.1 mmol/L (3.3-5.1)
[2025-03-19] MEDS: Aspirin E.C. 81 MG Tablet PO (07:59)
--- NOTE | 2025-03-19 08:18 | PCM.DC ---
Discharge Instructions DC O2, CPAP, BIPAP needs Home O2 Discharge instructions: No Dressing / Incision Discharge Activity: Return to Normal Activity Weight Bearing Status: Weight bearing as tolerated Dressing / Incision Call your doctor if you observe: Fever of 101 or Higher, Coldness, Increased Pain, Numbness or Tingling, Change in Color, Inability to urinate, Inability to have a bowel movement, Shortness of breath, Dizziness, Fainting spells, Swelling in the ankles, Chest pain, Prolonged hiccupping, Increased palpitations (irregular heartbeat) and Calf discomfort Follow Up Care When: IN 2 WEEKS Test Results: Test results from this visit will be discussed in further detail at your follow-up appointment, if applicable. Discharge Plan Admission Admit Date/Time: 03/17/25 17:55 Attending Provider: Abner Polk Primary Care Provider: Meggan Suarez,Jalyn Primary Consulting Providers: Karen Galloway; Lita Saleem; Julito Campos Discharge Orders/Prescriptions Prescriptions: New atorvastatin 80 mg Tablet 80 mg PO QHS 90 Days Qty: 90 0RF lisinopril 5 mg Tablet 5 mg PO DAILY 30 Days Qty: 30 3RF ticagrelor [Brilinta] 90 mg Tablet 90 mg PO BID 30 Days Qty: 60 4RF Continued oxycodone 5 mg tablet 5 mg PO Q8H insulin lispro [Humalog KwikPen Insulin] 100 unit/mL insulin pen 8 unit subcut TID insulin glargine 100 unit/mL cartridge 18 unit subcut QHS methocarbamol 500 mg tablet 1,000 mg PO Q8H aspirin [Adult Aspirin Regimen] 81 mg tablet,delayed release (DR/EC) 81 mg PO QDAY 90 Days Qty: 90 1RF metoprolol succinate [Toprol XL] 50 mg tablet extended release 24 hr 50 mg PO QDAY Qty: 90 3RF Discontinued atorvastatin [Lipitor] 40 mg tablet 80 mg PO QHS Referrals / Follow Up: Care Physician,No Primary [Primary Care Provider] - Disposition Disposition (needs filled in before D/C Order can be placed): Home, Self Care
--- NOTE | 2025-03-19 08:58 | PCM.DC.SUM ---
Providers Date of Admission: 03/17/25 Date of Discharge: 03/19/25 Primary Care Physician: Jalyn Primary Care Phys Consultations 03/17/25 18:03 Consult: Cardiology Routine Consulting Provider: Karen Galloway Reason for Consult: Chest Pain EMERGENT Consult: No MD Notified: Yes Date Notified: 03/17/25 Time Notified: 18:03 Method of Notification: ED Physician Initiated Reason For Visit: STEMI Diagnosis Discharge Diagnosis (1) STEMI (ST elevation myocardial infarction): Status: Acute Code(s): I21.3 - ST elevation (STEMI) myocardial infarction of unspecified site Qualifiers: Involved coronary artery: unspecified coronary artery Qualified Code(s): I21.3 - ST elevation (STEMI) myocardial infarction of unspecified site Plan 59-year-old gentleman admitted with chest pain radiating to the left shoulder started at 1300 hrs. on the day of admission while walking to the garage. Patient had CABG surgery about 2 weeks ago in [facility]. Prior to that he had a stent in LAD 2011. Had MEADE to LAD SVG to OM 2 and SVG to diagonal 1 done. SVG to PDA was attempted but the vessel was found to be too small therefore grafting not done. Patient was not taking antiplatelet medication or aspirin. Admitted with chest pain. EKG confirmed lateral wall STEMI. 1. Lateral wall STEMI-status post thrombectomy and PTCA of the SVG small diagonal 2 branch, patient is now on dual antiplatelet therapy Cardiac catheter revealed occluded SVG to diagonal 2. Diagonal 2 was very small and severely diseased and despite multiple attempts at thrombectomy and balloon angioplasty could not maintain patency. Currently on dual antiplatelet treatment. electronic device monitor shows NSR. Discussed with the sheep farmer Dr. Galloway. Prescription given for baby aspirin, Brilinta, lisinopril and atorvastatin. Atorvastatin dose increased to 80 mg daily. Patient was not taking antiplatelet agent after surgery and was advised to take dual antiplatelet agent, Brilinta for 1 year and aspirin indefinitely. #2 type 2 diabetes-blood sugars will be monitored, sliding scale insulin will be administered if needed, I have started him on his home insulin regimen 03/19: Glucose 208. A1c 9.7%. Advised follow with PCP to optimally control glucose #3 hyperlipidemia-patient is on Lipitor 80 mg daily 03/19: Lipid profile shows LDL 44, total cholesterol 107, TG 82. Rest as mentioned above #4 ischemic cardiomyopathy, chronic systolic heart failure-patient's EF is 35%-patient is on a beta-deandre and lisinopril 2D echo 03/17/2020 Interpretation Summary The estimated ejection fraction is 35 %. Trivial mitral valve insufficiency. Discharge medication reconciliation done. Discharge follow-up instructions completed. Discharge process discussed with the patient and all questions were answered to patient's satisfaction. Follow with PCP in 1 to 2 weeks Total time spent, exact 35 minutes on discharge meds reconciliation, examination, coordination of care with nurses and ancillary staff, review of imaging and blood test and discussion with the patient on follow-up instructions. Medications at Discharge Home Medications metoprolol succinate 50 mg tablet,extended release 24 hr (Toprol XL) 50 mg PO QDAY #90 tabs 02/07/25 insulin glargine 100 unit/mL subcutaneous cartridge 18 unit subcut QHS BS 03/18/25 insulin lispro 100 unit/mL subcutaneous pen (Humalog KwikPen (U-100) Insulin) 8 unit subcut TID blood sug 03/18/25 methocarbamol 500 mg tablet 1,000 mg PO Q8H Muscle spasm 03/18/25 oxycodone 5 mg tablet 5 mg PO Q8H pain 03/18/25 aspirin 81 mg tablet,delayed release (Adult Aspirin Regimen) 81 mg PO QDAY Cardiac 90 days #90 tabs 03/19/25 atorvastatin 80 mg tablet 80 mg PO QHS 3 months #90 tabs 03/19/25 lisinopril 5 mg tablet 5 mg PO DAILY 30 days #30 tabs 03/19/25 ticagrelor 90 mg tablet (Brilinta) 90 mg PO BID 30 days #60 tabs 03/19/25 Physical Exam Narrative Seen and examined. Patient had CABG surgery about 2 weeks ago in [facility]. Prior to that he had a stent in LAD 2011. Had MEADE to LAD SVG to OM 2 and SVG to diagonal 1 done. SVG to PDA was attempted but the vessel was found to be too small therefore grafting not done. Patient was not taking antiplatelet medication or aspirin. Admitted with chest pain. EKG confirmed lateral wall STEMI. Cardiac catheter revealed occluded SVG to diagonal 2. Diagonal 2 was very small and severely diseased and despite multiple attempts at thrombectomy and balloon angioplasty could not maintain patency. Currently on dual antiplatelet treatment. electronic device monitor shows NSR Physical exam General: Alert, Oriented x3, Cooperative. BMI 28.5 kg/m? HEENT: Atraumatic, PERRLA, EOMI, Normocephalic. Oral: No Gingival or Mucosal Lesions/ Ulcerations Neck: Supple, No JVD, Negative Carotid Bruits Chest wall/Lungs: Air entry equal in bilateral lung bases. No crepitation/rhonchi Cardiovascular: Regular rate and rhythm, Normal S1,S2, No M/G/R. CABG scar fresh Abdomen: Bowel Sounds Present, Soft, Non Tender, Non-Distended : No dysuria. No renal angle tenderness. No suprapubic tenderness. Extremities: No edema, Capillary Refill Less than 3 Seconds Skin: No rashes, No breakdown Musculoskeletal: No Tenderness to Palpation of Joints or Extremities Neurological: Cranial nerves II-XII grossly intact, DTR 2+/4. No acute focal neurological deficit. Psych/Mental Status: Normal Affect, Appropriate. Weight / BMI Weight Weight: 198 lb 13.711 oz Body Mass Index (BMI) 28.5 ABG / Lab / Microbiology Data 03/19/25 05:55 03/19/25 05:55 Laboratory: Laboratory Results - last 24 hr 03/18/25 08:59: Activated Clotting Time 135 03/18/25 11:45: Troponin T High Sens 1806 H* D 03/18/25 12:14: POC Glucose 178 H 03/18/25 17:17: POC Glucose 301 H 03/18/25 21:46: POC Glucose 190 H 03/19/25 05:55: WBC 6.5, RBC 3.95 L, Hgb 11.3 L, Hct 34.1 L, MCV 86.3, MCH 28.6, MCHC 33.1, RDW Std Deviation 42.8, RDW Coeff of Salma 13.8, Plt Count 367, MPV 9.4, Immature Gran % (Auto) 0.500, Neut % (Auto) 64.9, Lymph % (Auto) 19.3, [place] % (Auto) 7.9, Eos % (Auto) 6.2 H, Baso % (Auto) 1.2 H, Absolute Neuts (auto) 4.2, Absolute Lymphs (auto) 1.25, Nucleated RBC % 0, Sodium 138, Potassium 4.1, Chloride 104, Carbon Dioxide 22.8, Anion Gap 11, BUN 16, Creatinine 0.76, Estim Creat Clear Calc 121.16, Est GFR (MDRD) Non-Af 105, BUN/Creatinine Ratio 21.0 H, Glucose 208 H, Calcium 9.2 03/19/25 07:55: POC Glucose 200 H Radiography Diagnostic Testing: Radiology Impression Echocardiogram 03/17/25 17:59 Interpretation Summary The estimated ejection fraction is 35 %. Trivial mitral valve insufficiency. Ordering Physician: Lita Saleem Referring Physician: Karen Galloway Performed By: Sarah Jaime RDCS D/C Instructions DC O2, CPAP, BIPAP Needs Home O2 Discharge instructions: No Meaningful Use Info Meaningful Use Meaningful Use Diagnoses (Choose all that apply): AMI AMI/Post PCI/Angioplasty Aspirin given w/in 24hrs of arrival?: Yes ASA at discharge?: Yes Statins at discharge?: Yes Alvarado/ARB at discharge?: Yes Beta Deandre at discharge?: Yes Done w/ Acute DE measure.: Yes Discharge Plan Admission Admit Date/Time: 03/17/25 17:55 Primary Reason for Your Visit: Lateral wall STEMI Attending Provider: Abner Polk Primary Care Provider: Care Physician,No Primary Consulting Providers: Kraen Galloway; Lita Saleem; Julito Campos Discharge Orders/Prescriptions Prescriptions: New atorvastatin 80 mg Tablet 80 mg PO QHS 90 Days Qty: 90 0RF lisinopril 5 mg Tablet 5 mg PO DAILY 30 Days Qty: 30 3RF ticagrelor [Brilinta] 90 mg Tablet 90 mg PO BID 30 Days Qty: 60 4RF Continued oxycodone 5 mg tablet 5 mg PO Q8H insulin lispro [Humalog KwikPen Insulin] 100 unit/mL insulin pen 8 unit subcut TID insulin glargine 100 unit/mL cartridge 18 unit subcut QHS methocarbamol 500 mg tablet 1,000 mg PO Q8H aspirin [Adult Aspirin Regimen] 81 mg tablet,delayed release (DR/EC) 81 mg PO QDAY 90 Days Qty: 90 1RF metoprolol succinate [Toprol XL] 50 mg tablet extended release 24 hr 50 mg PO QDAY Qty: 90 3RF Discontinued atorvastatin [Lipitor] 40 mg tablet 80 mg PO QHS Referrals / Follow Up: Care Physician,No Primary [Primary Care Provider] - Az Enrique MD [Med Staff - Active Staff] - Within 1 Month Disposition Disposition (needs filled in before D/C Order can be placed): Home, Self Care Charges/Coding Visit Charges Inpatient E&M: 55351 Disch Hosp >30min
[2025-03-19] MEDS: Metoprolol(XL)Succ 50 MG Tablet PO (09:20)
[2025-03-19] MEDS: TICAGRELOR 90 MG TABLET PO (09:20)
--- NOTE | 2025-03-19 12:01 | CASEMGMT ---
Addendum entered by Kervin Danielle 03/19/25 12:14: TC to [facility] who states that the Brilinta is 9$ for the weekend coverage. Pt's RN notified. Original Note: Pt has an order for DC placed with a new Rx for Brilinta. Pt's RN calls this RN CM requesting savings card. RN updated that the savings card is no longer valid due to the generic form. TC to the pt's pharmacy who states that the pt's Rx is 40$ total after insurance but that they cannot get the Rx in until Friday. Pt's RN states to this health technical writer that she has already facilitated this with [facility] stating that [facility] is providing a supply until the pt can get the rx Friday. No further needs identified.
--- NOTE | 2025-03-20 18:07 | CL.I_ITS ---
Patient Name: WALLACE TURK Study Date: 03/17/2025 Performing: Juan Galloway MD Ht: 70 inches 177.8 cm : 1965 Wt: 208.7 lbs 94.53 kg Age: 59 Gender: male BSA: 2.12 PROCEDURE(S) PERFORMED IC16-([id number])AMI, INDIGO OR PTCA, ARTERY/GRAFT, SINGLE VESSEL IC17-([id number])CORONARY MECHANICAL THROMBECTOMY (ANGIOJET,PENUMBRA) IC14-([id number])GRAFT-INDIGO AND/OR PTCA, SINGLE GRAFT DC04-([id number])LHC/COR/CABG CLINICAL PROFILE AND CO-MORBIDITIES Indications: ACS <= 24 hrs, STEMI Heart Failure: None CONCLUSIONS RECOMMENDATIONS DESCRIPTION OF PROCEDURE The patient arrived to the procedure lab. The risks and benefits of the procedure as well as a full description of our services here and lack of surgical backup were fully explained to the patient and/or their significant other prior to the catheterization. The Timeout was completed, verifying the correct patient and procedure. The patient's procedural site was prepped and draped in the usual fashion. Local anesthetic was given subcutaneously to right groin region with Lidocaine 2%. Using a modified Seldinger technique, arterial access was obtained via the right femoral artery, with Micropuncture set. Left Coronary Artery selective angiography was performed in multiple views using a 5 Fr. JL4 catheter. Right Coronary Artery selective angiography was then performed in multiple views using a 5 Fr. JR 4 catheter. Saphenous Vein graft to the DIAG 2 selective angiography was performed in multiple views using a 5 Fr. JR 4 catheter. Saphenous Vein graft to the OM 2 selective angiography was performed in multiple views using a 5 Fr. JR 4 catheter. Left internal mammary artery graft to the LAD selective angiography was performed in multiple views using a 5 Fr. IM catheter. Saphenous Vein graft to the OM 1 selective angiography was performed in multiple views using a 5 Fr. LCB catheter JR 4 Guide catheter was inserted and engaged into the SVG to the 2ND Diagonal. BMW Guide wire was advanced to the 2nd Diagonal. Priority One inserted Pass # 1 Priority One Removed EMERGE 3.5 X 12 Balloon catheter was inserted. Balloon catheter was advanced across lesion in the graft to the 2nd Diagonal. PTCA balloon inflated at 12 atms for 12 secs. PTCA balloon inflated at 6 atms for 8 secs. PTCA balloon inflated at 6 atms for 8 secs. PTCA balloon inflated at 6 atms for 10 secs. PTCA balloon inflated at 6 atms for 8 secs. PTCA balloon inflated at 6 atms for 6 secs. Angiogram performed post balloon dilatation. PTCA balloon inflated at 6 atms for 6 secs. PTCA balloon inflated at 8 atms for 10 secs. euphora 1.5 x 20 Balloon catheter was inserted. Balloon catheter was advanced across lesion in the graft to the 2nd Diagonal. PTCA balloon inflated at 8 atms for 10 secs. PTCA balloon inflated at 8 atms for 10 secs. PTCA balloon inflated at 8 atms for 10 secs. PTCA balloon inflated at 12 atms for 10 secs. Angiogram performed post balloon dilatation. Contrast was injected through the sheath and the Right Iliac and Femoral artery were assessed for possible closure device. The arterial sheath was sutured in place with heparinized normal saline under pressure CORONARY ANGIOGRAPHY DOMINANCE: Right Dominant LEFT MAIN: Mild luminal irregularities LEFT ANTERIOR DESCENDING ARTERY: Occluded in the midportion.He has stents in the proximal LAD that has 80% stenosis in the distal portion and a stent in the mid LAD that appears to be occluded. diagonal 1 is a small branch that is patent. Diagonal 2 is also small diffusely diseased branch that is compromised by a 90% stenosis in the LAD at the origin of the diagonal branch. DIAGONAL 2: Is occluded. CIRCUMFLEX ARTERY: 70% stenosis in the mid LAD. OM1 arises after the stenosis and is patent. OM 2 appears to be subtotally occluded. RIGHT CORONARY ARTERY: RCA has severe diffuse disease in the proximal portion and is occluded in the midportion. Collaterals noted from the left system to the RCA. GRAFTS: MEADE graft to the LAD is patent Saphenous Vein graft to the 2nd OM Is patent. There are 3 areas in the graft that appear to be related to the valves and the vein graft. This finding was discussed with CT surgery team at [facility] and the plan was to continue medical management without any intervention at this time Saphenous Vein graft to the 2nd Diagonal: Is occluded. INTERVENTION INFORMATION LESION SITE: Vein > to 2nd Diagonal Segment Number: 16-Second diagonal branch segment - 2nd Diag , Lesion Location: Body Lesion Complexity: High/C, chronic total occlusion: No, lesion at bifurcation: No, thrombus present: Yes, lesion length: 50 mm, culprit lesion: Yes, Previously treated lesion: No Pre Stenosis: 100 % Pre intervention ELISEO flow: 0 PROCEDURE: Thrombectomy, Balloon Angioplasty It appears that the vein graft was occluded due to severe diffuse disease in the diagonal 2 that was not providing adequate runoff to the bypass graft. We did multiple rounds with thrombectomy catheters and also balloon angioplasty. We were able to restore flow briefly but the vessel would again get occluded with thrombus. The diagonal 2 branch is very small. We felt that that further interventional attempts would be futile. Post Stenosis: 100 % Post intervention ELISEO flow: 0 Lesion Devices: Parmar .014 190cm BMW [place] Straight Medtronic 6 Fr JR4.0 100cm Guide Catheter Terumo Priority One Aspiration Catheter Penumbra Penumbra engine canister Penumbra Indigo Penumbra CAT Rx 140cm large lumen Acosta Sci EMERGE MR 3.50x12 BALLOON Medtronic SC EUPHORA RX 1.5x20 BALLOON COMPLICATIONS No Complications PROCEDURE MEDICATIONS Oxygen: 2 L/min via nasal cannula Heparin 5000 unit(s) IV 03/17/2025 15:49:16 Nipride 200 mcg IC 03/17/2025 16:38:04 SUMMARY OF HEMODYNAMIC DATA Time AIR REST ECG 15:29:00 AO 128/69 (96) SA 15:39:04 AO 142/76 (107) 15:45:55 Signed By Juan Galloway MD On 03/20/2025 18:05:57 Juan Galloway MD
== END 2025-03-19 12:25 | disposition home or self-care (01) | DRG 322 ==
LOC: ED 15:21 → ICU 17:54
PROVIDERS: Family Medicine; Internal Medicine; Admitting Provider Internal Medicine; Emergency Provider Student in an Organized Health Care Education/Training Program; Referring Provider Specialist; Visit Provider Internal Medicine
DX: I21.3 ST elevation (STEMI) myocardial infarction of unspecified site (principal); I97.190 Other postprocedural cardiac functional disturbances following cardiac surgery; I50.22 Chronic systolic (congestive) heart failure; I11.0 Hypertensive heart disease with heart failure; E11.40 Type 2 diabetes mellitus with diabetic neuropathy, unspecified; E78.5 Hyperlipidemia, unspecified; I25.10 Atherosclerotic heart disease of native coronary artery without angina pectoris; I25.5 Ischemic cardiomyopathy; Z82.49 Family history of ischemic heart disease and other diseases of the circulatory system; Z79.899 Other long term (current) drug therapy; Z95.1 Presence of aortocoronary bypass graft; Z95.5 Presence of coronary angioplasty implant and graft
CPT/HCPCS: 80048; 80061; 82962; 83036; 83735; 84484; 85025; 85347; 85610; 85730; 92928; 92941; 92973; 93005; 93306; 93455; 97802; 99285; C1757; C1894; Q9957; Q9967; A4216; C1725; C1769; C1887; C8929; C9600; C9606; J1327

== ENCOUNTER → 2025-04-21 | Outpatient (CLI) | payer BC, SELFPAY ==
--- NOTE | 2025-04-21 07:07 | PCM.CR.HP2 ---
CR - History & Physical General Arrival date:: 04/21/25 Arrival time:: 07:08 Date of Referral:: 03/21/25 Date of CR Evaluation:: 04/21/25 Referring Physician: Dr. Enrique Primary Diagnosis: AR-STEMI<12 months History of Present Cardiac Event Onset Date Acute Myocardial Infarction within 12 months:: Yes Coronary Artery Bypass Graft:: Yes (03/04/25) Vessel: MEADE to LAD, SVG to OM2, SVG to Diagonal 2 02/2025 Medications Ambulatory Orders Medication Instructions Recorded metoprolol succinate 50 mg 50 mg PO QDAY #90 tabs 02/07/25 tablet,extended release 24 hr (Toprol XL) insulin glargine 100 unit/mL 18 unit subcut QHS BS 03/18/25 subcutaneous cartridge insulin lispro 100 unit/mL 8 unit subcut TID blood sug 03/18/25 subcutaneous pen (Humalog KwikPen (U-100) Insulin) aspirin 81 mg tablet,delayed 81 mg PO QDAY Cardiac 90 days #90 03/19/25 release (Adult Aspirin Regimen) tabs ticagrelor 90 mg tablet (Brilinta) 90 mg PO BID 30 days #60 tabs 03/19/25 atorvastatin 80 mg tablet 80 mg PO QHS #90 tabs 04/14/25 lisinopril 5 mg tablet 5 mg PO DAILY #90 tabs 04/14/25 Allergies Allergies No Known Allergies Allergy (Verified 04/14/25 14:41) Sleep Disorder Evaluation Hx of Sleep Apnea: Yes Do you snore loudly (louder than talking or can be heard through closed doors)?: No Do you often feel tired/ fatigued/ sleepy during daytime?: No Has anyone observed you stop breathing during sleep?: No History of Hypertension (for STOP score): Yes STOP Results: Negative Advanced Directives Advanced Directives Do you have a Healthcare Power of Welder Tech?: Yes Living Will: Yes Advance Directives Information Provided: No Advance Directives on File: No Past Medical History Covid-19 Screening Physicial Symptoms Other Clinical Concerns Exposure Risk Pertinent Comorbidities Has a serious heart condition:: Yes Past Medical Illness Past Medical History (Updated 04/14/25 @ 16:26 by Carmina Hidalgo PA, PA) Erectile dysfunction N52.9 CAD (coronary artery disease) I25.10 LILA (obstructive sleep apnea) G47.33 Neuropathy G62.9 Obesity (BMI 30.0-34.9) E66.9 Hyperlipidemia E78.5 Hypertension I10 Diabetes mellitus, type II E11.9 Past Surgical History Past Surgical History (Updated 04/14/25 @ 16:29 by Carmina Hidalgo PA, PA) Hx of CABG (~03/04/25) Z95.1 MEADE to LAD, SVG to OM2, SVG to Diagonal 2 02/2025 CAD S/P percutaneous coronary angioplasty (03/20/25) I25.10, Z98.61 05/2012 x3 03/20/2025:Due to occlusion of SVG to severely diseased small diagonal 2 branch. Thrombectomy and PTCA was performed but there was no flow in the vessel at the end of the procedure due to poor outflow resulting in vein graft thrombosis. Recommend aspirin, Brilinta, statin, beta-liliana. Will discuss with CT surgery service at [facility] to see if further intervention of the SVG to OM 2 needs to be considered. Surgical History: - (Left knee arthroscopic surgery.) Family History Summary Family History Mother Diabetes CAD (coronary artery disease) Myocardial infarction CVA (cerebral vascular accident) Father Diabetes Social History Smoking History Smoking Status: Never smoker Alcohol Use Alcohol Usage: Yes (rare) Occupation Occupation (List type of work in comments):: Employed Social Environment Status Marital Status: Current Living Arrangements Living Environment:: Family Children How many children do you have?: 3 Do any of your children live nearby?: Yes Safety Do you feel safe in your surroundings?: Yes Assistance Do you need any assistance at home?: yes Review of Systems Review of Systems Hints Review of Present Symptoms: Reports Operative Discomfort (mild), Appetite - Normal, Appetite - Special Diet (trying) and Sleep - Normal; Denies Shortness of Breath at Rest, Shortness of Breath with Exertion, PVD, Angina, Wound Healing, Dizziness/Lightheadedness, Fatigue, Heart Arrhythmia/Irregularities or Sexual Changes Pain Is Patient Pain Free?: Yes Risk Factor Assessment Chief Complaint Chief Complaint: AR-STEMI<12 months Vital Signs Pulse Ox: 96 Blood Pressure: 118/77 Pulse Pulse Rate: 90 Hypertension Blood Pressure Sitting - Right Arm: 118/77 Diabetes Diabetic History: Type II Obesity Height: 5 ft 10 in Weight:: 202 lb Weight in Pounds: 202.0 lbs Body Mass Index (BMI): 29.0 Physical Inactivity Physical Inactivity: Reg Exercise 30 min/day Risk Stratification Risk Guidelines: Moderate Risk: Risk Factor for Smoking, Risk Factor for Obesity, Risk Factor for Sedentary Lifestyle and Risk Factor for Depression and Highest Risk: Risk Factor for Dyslipidemia, Risk Factor for Diabetes and Risk Factor for Hypertension For Smoking Smoking Risk Guidelines For Dyslipidemia Dyslipidemia Risk Guidelines For Diabetes Mellitus Diabetes Risk Guidelines For Obesity/Overweight Obesity/Overweight Risk Guidelines For Hypertension Hypertension Risk Guidelines For Sedentary Lifestyle Sedentary Lifestyle Risk Guidelines For Depression Depression Risk Guidelines Family History Family History Mother Diabetes CAD (coronary artery disease) Myocardial infarction CVA (cerebral vascular accident) Father Diabetes Motivation Motivation to Participate On a scale of 1 to 10, how prepared are you to commit to attending program?: 10 What do you see as barriers to successfully being able to complete the program?: nothing What do you see as the benefits of succesfully completing the program? In other words, what do you hope to get out of participating in the program?: stronger Are there issues you are dealing with that will interfere with completing the program?: no Do you have a spouse or signficant other, family or friends who will help support you to complete the program?: yes
[2025-04-21 07:15] VITALS: BP 118/77; PULSE 90; O2SAT 96
--- NOTE | 2025-04-21 07:15 | PCM.CR.ITP ---
Diagnosis General Information Admitting Diagnosis: [place]-STEMI<12 months Personal Learning Style:: Audio/Visual Barriers to Learning: No Barriers Stage of change r/t lifestyle modifications:: Contemplation Gave educational material for:: Treating Heart Disease, How The Heart Works, What it means to have Heart Disease, How Coronary Artery Disease is Diagnosed, Heart Procedures, What Heart Medications Do, Risk Factors & Modifications, Living an Active Life, Nutrition, Emotions & Heart Disease, Stress Management & Relaxation and Sleep Disorders & Heart Disease Education/Goals Cardiac Rehabilitation Goals Personal Goals: Initial Assessment: Improve energy level, Participate in home exercise program, Get back to work, or to resume activities faster, Improve knowledge of cardiac disease, Improve muscle strength and endurance, Improve diet and eating habits (eat healthier) and Control risk factors (learn risk factor modification) Scale for measuring improvement of personal goals Diagnosis & Disease Process Outcomes/Goals: Pt IDs own risk factors & lifestyle modifications by Session 10, Verbalizes symptoms of angina & response by session 3., Pt independently manages and Other Additional Outcomes/Goals: Plan/Interventions: Assist Pt to ID & engage in lifestyle modification to reduce CVD risk, Instruct on individual risk factors, Review symptoms of angina & emergency actions, Review secondary diagnosis & identify educational needs. and Other see comment 30 day Reassessments:: Not Met 30 day Reassessments:: Not Met 30 day Reassessments:: Not Met 30 day Reassessments:: Not Met Final Reassessments:: Not Met Safety Referral to Physical Therapy: No Referral to [facility] Case Management: No Fall Risk Assessed:: Yes Assistive Devices:: None Exercise - Initial Assessment Visit Date of Eval: 04/21/25 (initial eval ) Mets: Pre-: >3 METS for 30 minutes by discharge, >5 METS for 30 minutes by discharge, >7 METS for 30 minutes by discharge and Unable to meet goal due to: (see comment below) Physician Prescribed Exercise Modalities: Treadmill, Schwinn Airdyne AD-7, SciFit Stepper, SciFit Pro-II Ergometer and SciFit Lateral [place] Frequency: 3x/week for 12 weeks [36 sessions] Intensity: 60-80% of age predicted maximum heart rate reserve Duration: 30 - 45 minutes Current METSs:: 3 Target Heart Rate:: 98-122 Resting Blood Pressure: 118/77 EKG Type: NSR Outcomes & Goals Goals:: Verbalizes understanding of THR, RPE & goal METS by session 6, Documents in home exercise log/reports 30 min aerobic 5 day/wk by DC, Demonstrates accurate pulse taking by DC and Other additional outcome/goals: see below Intervention & Plan Exercise Program Goals: Instruct on personal THR & RPE, Instruct on MET level & personal MET goal, Show patient to take own pulse /validate performance until accurate, Instruct on home exercise and Other additional plan/int Physical Activity Home Exercise Physical Activity - Home Exercise: Safe Exercise, Warm-up, Self-monitoring, Cool-Down, Home Exercise > 30 min Daily and Sitting Time <3 hours/daily Outcomes & Goals Outcomes/Goals: Demonstrates correct Warm-up/exercise Cool-Down (S3) if = 2.5 METs, Verbalizes symptoms of exercise intolerance by Session 3 (S3), Demonstrate safe equipment use (S3) & follows exercise prescrition (6) and Other: See below Intervention & Plan Plan/Intervention: Instruct warm-up & cool-down if exercising at > 2 METs, Instruct on symptoms of exercise intolerance & actions to take, Instruct & monitor on saf, Assess intial functional capacity & safety risk and Other See below Nutrition - Initial Assessment Program Goals Nutrition Program Goals Patient has diagnosis of Hyperlipidemia (ICD E78)?: Yes Visit Date of Eval: 04/21/25 (initial eval ) Cholesterol/Lipids (Other Core Measures) Determine presence & major risk factors that modify LDL goal: Cigarette smoking, Hypertension or hypertensive medication, Low HDL cholesterol <40 mg/dL*, Family history of premature CHD in Male < 55 years: female <65 yearsFa and Age men > 45 years; women >/= 55 years Outcomes/Goals: Pt IDs own risk factors & lifestyle modifications by Session 10, Verbalizes symptoms of angina & response by session 3., Pt independently manages and Other Additional Outcomes/Goals: Intervention/Plan: Advocate for lipid panel cholesterol medication if applicable, Instruct on personal lipid levels & lipid goals/NCEP guidelines, Instruct on cholesterol and Other additional plan/int Referral to dietitian:: No Diabetes (Other Core Measures) Diabetes Type: Diagnosis Type II ICD-10 E11 Insulin dependent injection/pump?: Yes Non-Insulin Dependent?: No Referral to Diabetic Clinic:: No Outcomes/Goals:: Able to state symptoms of, Able to state, Able to state and Other additional Intervention/Plan:: Instruct on, Refer to, Instruct on and Other Weight Mgt (Other Care) Height: 5 ft 10 in Weight:: 202 lb BMI: 29.0 Diagnosis Overweight/Obesity BMI> 30% ICD-10 E66: No Diagnosis High BMI/Morbid Obesity BMI> 35% ICD-10 Z68: No Outcomes/Goals: Pt sets, maintains & shows weight loss goal & trend during rehab and Other additional outcomes/goals Intervention/Plan: Instruct on ideal BMI & set weight loss goal w/patient, Assist pt to ID & incorporate diet changes for weight loss by S9, Refer to Structured Weight Loss program as appropriate, Encourage goal of using 250-300dcal per session for weight loss and Other additional plan/interventions Healthy Eating Habits Will attend diet classes:: Yes Outcomes/Goals:: Consume diet rich in vegs,fruits,whole grain/high fiber,fish,lean meat, Limit sat/trans fats,cholesterol & added salts & sugars and Other additional outcome/goals: Intervention/Plan:: Assess current eating habits and Other Additional plan/interventions Education Gave educational materials for:: Signs & symptoms of hypoglycemia, Signs & symptoms of hyperglycemia, Relate diabetes to coronary artery disease and Healthy eating Core - Initial Assessment Visit Date of Eval: 04/21/25 (initial eval) Medication Compliance Preventative Medication(s):: Aspirin, CATY inhibitor, Ticagrelor/P2Y12 inhibitor, Statin/lipid and Beta liliana H/O mental health issues: depression, anxiety, or addiction?: No Doesn’t believe in the benefits of treatment?: No Believes medications are unnecessary or harmful?: No Has a concern about medication side effects?: No Expresses concern over the cost of medications?: No Outcomes/Goals: Verbalizes medications,desired effect & common side effects @ DC, Pt self-reports following medication regimen, Keeps card in wallet w/medications listed by DC and Other additional outcome/goals: Interventions/plans: Instruct on medication effects & side effects, Review medication list w/patient every two weeks, Instruct importance of taking meds as ordered & assist problem solving and Other additional Tobacco Use Tobacco Use: Non-smoker Hypertension Hypertension Diagnosis:: Hypertension ICD-10 I10 Resting Blood Pressure:: 118/77 [place] [employer] Hypertension Guidelines Outcomes/Goals: Able to verbalize/achieve optimal blood pressure <130/80, Incorporates diet changes & exercise for blood pressure control by DC and Other additional outcomes/goals Interventions/plan: Instruct on optimal blood pressure, hypertension & medications, Instruct on effects of sodium, alcohol, stress, exercise &hypertension and Other additional plan/interventions Tobacco Cessation Referral Smoking Cessation Referral:: No Individual Education/Counseling:: No Education Schedule Given:: Yes Psychosocial - Initial Assess VIsit Date of Eval: 04/21/25 (initial eval) History of previous Mental disease:: No Psychosocial Test Tool Used:: PHQ-9 Questionnaire phq-9 Severity See PHQ-9 Score: 0 Referral to Behavioral Health PS - Interventions: Yes: Attend Stress Management Classes Outcomes/Goals: See list Psychosocial Outcomes/Goals:: ID's personal stressors & 2 strategies to manage stress by discharge and Other Additional outcome/goals: Intervention/Plan: See List Interventions/Plan:: Assess stressors,coping strategies & signs of derpression on admission, Instruct/assist pt to develop coping & personal stress Mgt strategies, Refer to Behavioral Health if appropriate, Refer to Physician if appropriate, Instruct patient to recognize signs & symptoms of depression, Instruct patient to recog and Other additional plan/intervention Patient Health Questionnaire PHQ-9 Screening Initial Assessment: 1. Little interest or pleasure in doing things: Not at all 2. Feeling down, depressed, or hopeless: Not at all 3. Trouble falling or staying asleep, or sleeping too much: Not at all 4. Feeling tired or having little energy: Not at all 5. Poor appetite or overeating: Not at all 6. Feeling bad about yourself -- or that you are a failure or have let yourself or your family down: Not at all 7. Trouble concentrating on things, such as reading the newspaper or watching television: Not at all 8. Moving or speaking so slowly that other people could have noticed. Or the opposite - being so fidgety or restless that you have been moving around a lot more than usual: Not at all 9. Thoughts that you would be better off , or of hurting yourself in some way: Not at all How difficult have these problems made it for you to do your work, take care of things at home, or get along with other people?: Not difficult at all Total Score: 0 Nutrition Survey Nutrition Survey Initial: Have you lost >10 lbs over the past 2 months without trying?: No Are you following a special diet at home for diabetes, low fat, or low salt?: Yes Are you interested in meeting with a dietitian for help understanding your diet?: No Do you eat less than 3 meals a day?: No Do you eat fatty meats (alvarenga, sausage, ribs, etc), fried foods, desserts, large amounts of salad dressings, margarine, butter, or cheese most days?: No Do you have food allergies? [Enter types in comment field]: No Do you eat in restaurants more than 3 times a week?: No Do you season food with salt, seasoning salt, or garlic salt?: No Do you used canned, boxed, frozen meals, or soups, seasoning packets?: No Total Score:: 1 Exercise - 30-day Assessment Physician Prescribed Exercise Modalities: Treadmill, Schwinn Airdyne AD-7, SciFit Stepper, SciFit Pro-II Ergometer and SciFit Lateral [place] Exercise - 60-day Assessment Physician Prescribed Exercise Modalities: Treadmill, Schwinn Airdyne AD-7, SciFit Stepper, SciFit Pro-II Ergometer and SciFit Lateral [place] Exercise - 90-day Assessment Physician Prescribed Exercise Modalities: Treadmill, Schwinn Airdyne AD-7, SciFit Stepper, SciFit Pro-II Ergometer and SciFit Lateral [place] Exercise - Final/Discharge Physician Prescribed Exercise Modalities: Treadmill, Schwinn Airdyne AD-7, SciFit Stepper, SciFit Pro-II Ergometer and SciFit Lateral [place] Co[place] Frequency: 3x/week for 12 weeks [36 sessions] Intensity: 60-80% of age predicted maximum heart rate reserve Current METSs:: 3 Target Heart Rate:: 98-122 Nutrition - 30-Day Assessment Weight Mgt (Other Care) Height: 5 ft 10 in Weight:: 202 lb BMI: 29.0 Nutrition - 60-Day Assessment Weight Mgt (Other Care) Height: 5 ft 10 in Weight:: 202 lb BMI: 29.0 Core - Final Assessment Hypertension Resting Blood Pressure:: 118/77 [place] [employer] Hypertension Guidelines Core - 60-Day Assessment Hypertension Resting Blood Pressure:: 118/77 [place] [employer] Hypertension Guidelines Psychosocial - 30-Day Assess Referral to Behavioral Health PS - Interventions: Yes: Attend Stress Management Classes Psychosocial - 60-Day Assess Referral to Behavioral Health PS - Interventions: Yes: Attend Stress Management Classes Psychosocial - 90-Day Assess Referral to Behavioral Health PS - Interventions: Yes: Attend Stress Management Classes Psychosocial - Final Assessmen Psychosocial Test phq-9 Severity See PHQ-9 Score: 0 Referral to Behavioral Health PS - Interventions: Yes: Attend Stress Management Classes Nutrition - 90-Day Assessment Weight Mgt (Other Care) Height: 5 ft 10 in Weight:: 202 lb BMI: 29.0 Nutrition - Final Assessment Program Goals Patient has diagnosis of Hyperlipidemia (ICD E78)?: Yes Weight Mgt (Other Care) Height: 5 ft 10 in Weight:: 202 lb BMI: 29.0
[2025-04-21 07:18] VITALS: BP 118/77
[2025-04-21 07:51] VITALS: BP 118/77; BMI 29.0
[2025-04-21 07:54] VITALS: BMI 29.0
== END | disposition home or self-care (01) ==
LOC: CR 07:04
PROVIDERS: Referring Provider Internal Medicine Cardiovascular Disease; Visit Provider Internal Medicine Cardiovascular Disease
DX: I25.10 Atherosclerotic heart disease of native coronary artery without angina pectoris (principal); E11.69 Type 2 diabetes mellitus with other specified complication; Z95.1 Presence of aortocoronary bypass graft; Z98.61 Coronary angioplasty status; E78.5 Hyperlipidemia, unspecified; I10 Essential (primary) hypertension; G47.33 Obstructive sleep apnea (adult) (pediatric); I25.2 Old myocardial infarction

== ENCOUNTER 2025-05-11 15:15 | Outpatient (RCR) | payer BC, SELFPAY ==
[2025-04-21 07:51] VITALS: BMI 29.0
== END 2025-05-13 23:59 ==
LOC: CR 15:15
PROVIDERS: Referring Provider Internal Medicine Cardiovascular Disease; Visit Provider Internal Medicine Cardiovascular Disease
DX: I21.3 ST elevation (STEMI) myocardial infarction of unspecified site (principal); I25.10 Atherosclerotic heart disease of native coronary artery without angina pectoris; Z95.1 Presence of aortocoronary bypass graft; Z98.61 Coronary angioplasty status; E78.5 Hyperlipidemia, unspecified; I10 Essential (primary) hypertension; E11.69 Type 2 diabetes mellitus with other specified complication; G47.33 Obstructive sleep apnea (adult) (pediatric)
CPT/HCPCS: 93798

== ENCOUNTER 2025-06-06 15:15 | Outpatient (RCR) | payer BC, SELFPAY ==
[2025-04-21 07:51] VITALS: BMI 29.0
--- NOTE | 2025-05-19 08:53 | PCM.CR.ITP ---
Exercise - Initial Assessment Visit Session #:: 9 Physician Prescribed Exercise Modalities: Treadmill, Schwinn Airdyne AD-7, SciFit Stepper and SciFit Lateral [place] Nutrition - Initial Assessment Weight Mgt (Other Care) Height: 5 ft 10 in Weight:: 208 lb BMI: 29.8 Exercise - 30-day Assessment Visit Date of Eval: 05/19/25 Session #:: 9 Physician Prescribed Exercise Modalities: Treadmill, Schwinn Airdyne AD-7, SciFit Stepper and SciFit Lateral [place] Frequency: 3x/week for 12 weeks [36 sessions] Intensity: 60-80% of age predicted maximum heart rate reserve Duration: 30 - 45 minutes Current METSs:: 5.3 Target Heart Rate:: 98-122 Current RPE:: 12-13 Maximum Excercise HR:: 122 Resting Blood Pressure: 158/84 Maximum Exercise Blood Pressure: 182/84 EKG Type: NSR-ST with rare PVC Outcomes & Goals Goals:: Verbalizes understanding of THR, RPE & goal METS by session 6, Documents in home exercise log/reports 30 min aerobic 5 day/wk by DC, Demonstrates accurate pulse taking by DC and Other additional outcome/goals: see below Intervention & Plan Exercise Program Goals: Instruct on personal THR & RPE, Instruct on MET level & personal MET goal, Show patient to take own pulse /validate performance until accurate, Instruct on home exercise and Other additional plan/int 30-day Reassessments 30 day Reassessments:: Progressing Reassessment Notes & Comments:: Proper warm up and cool down demonstrated and explained to pt. Pt returns demonstration in his daily sessions. Physical Activity Home Exercise Physical Activity - Home Exercise: Safe Exercise, Warm-up, Self-monitoring, Cool-Down, Home Exercise > 30 min Daily and Sitting Time <3 hours/daily Outcomes & Goals Outcomes/Goals: Demonstrates correct Warm-up/exercise Cool-Down (S3) if = 2.5 METs, Verbalizes symptoms of exercise intolerance by Session 3 (S3), Demonstrate safe equipment use (S3) & follows exercise prescrition (6) and Other: See below Intervention & Plan Plan/Intervention: Instruct warm-up & cool-down if exercising at > 2 METs, Instruct on symptoms of exercise intolerance & actions to take, Instruct & monitor on saf, Assess intial functional capacity & safety risk and Other See below 30-day Reassessments 30 day Reassessments:: Progressing Reassessment Notes & Comments:: Proper warm up and cool down demonstrated and explained to pt. Pt returns demonstration in his daily sessions. Exercise - 60-day Assessment Physician Prescribed Exercise Modalities: Treadmill, Schwinn Airdyne AD-7, SciFit Stepper and SciFit Lateral [place] Exercise - 90-day Assessment Physician Prescribed Exercise Modalities: Treadmill, Schwinn Airdyne AD-7, SciFit Stepper and SciFit Lateral [place] Exercise - Final/Discharge Physician Prescribed Exercise Modalities: Treadmill, Schwinn Airdyne AD-7, SciFit Stepper and SciFit Lateral [place] Nutrition - 30-Day Assessment Program Goals Nutrition Program Goals Patient has diagnosis of Hyperlipidemia (ICD E78)?: Yes Visit Date of Eval: 05/19/25 Session #:: 9 Cholesterol/Lipids (Other Core Measures) Lipid Medication: atorvastatin Determine presence & major risk factors that modify LDL goal: Cigarette smoking, Hypertension or hypertensive medication, Low HDL cholesterol <40 mg/dL*, Family history of premature CHD in Male < 55 years: female <65 yearsFa and Age men > 45 years; women >/= 55 years Outcomes/Goals: Pt IDs own risk factors & lifestyle modifications by Session 10, Verbalizes symptoms of angina & response by session 3., Pt independently manages and Other Additional Outcomes/Goals: Intervention/Plan: Advocate for lipid panel cholesterol medication if applicable, Instruct on personal lipid levels & lipid goals/NCEP guidelines, Instruct on cholesterol and Other additional plan/int Referral to dietitian:: No 30-day Reassessments:: Progressing Reassessment Notes & Comments:: Pt is a healthy weight. Pt is scheduled to attend nutrition class given by hospital pharmacy informatics specialist. Heart healthy diet encouraged. Diabetes (Other Core Measures) Diabetes Type: Diagnosis Type II ICD-10 E11 Insulin dependent injection/pump?: Yes 30-day Reassessments:: Progressing Reassessment Notes & Comments:: Pt encouraged to monitor BS at home as instructed by Physician. Weight Mgt (Other Care) Height: 5 ft 10 in Weight:: 208 lb BMI: 29.8 Diagnosis Overweight/Obesity BMI> 30% ICD-10 E66: No Outcomes/Goals: Pt sets, maintains & shows weight loss goal & trend during rehab and Other additional outcomes/goals Intervention/Plan: Instruct on ideal BMI & set weight loss goal w/patient, Assist pt to ID & incorporate diet changes for weight loss by S9, Refer to Structured Weight Loss program as appropriate, Encourage goal of using 250-300dcal per session for weight loss and Other additional plan/interventions 30 day Reassessments:: Progressing Reassessment Notes & Comments:: Pt is at a healthy weight and is scheduled to attend nutrition class. Healthy Eating Habits Will attend diet classes:: Yes Outcomes/Goals:: Consume diet rich in vegs,fruits,whole grain/high fiber,fish,lean meat, Limit sat/trans fats,cholesterol & added salts & sugars and Other additional outcome/goals: Intervention/Plan:: Assess current eating habits and Other Additional plan/interventions 30-day Reassessments:: Progressing Reassessment Notes & Comments:: Pt instructed to follow a low sodium diet and heart healthy diet. Nutrition score of 1. Education Gave educational materials for:: Signs & symptoms of hypoglycemia, Signs & symptoms of hyperglycemia, Relate diabetes to coronary artery disease and Healthy eating Nutrition - 60-Day Assessment Weight Mgt (Other Care) Height: 5 ft 10 in Weight:: 208 lb BMI: 29.8 Core - 30-Day Assessment Visit Date of Eval: 05/19/25 Session #:: 9 Medication Compliance Preventative Medication(s):: Aspirin, Ticagrelor/P2Y12 inhibitor, Statin/lipid and Beta liliana H/O mental health issues: depression, anxiety, or addiction?: No Doesn’t believe in the benefits of treatment?: No Believes medications are unnecessary or harmful?: No Has a concern about medication side effects?: No Expresses concern over the cost of medications?: No Outcomes/Goals: Verbalizes medications,desired effect & common side effects @ DC, Pt self-reports following medication regimen, Keeps card in wallet w/medications listed by DC and Other additional outcome/goals: Interventions/plans: Instruct on medication effects & side effects, Review medication list w/patient every two weeks, Instruct importance of taking meds as ordered & assist problem solving and Other additional 30-day Reassessments:: Progressing Reassessment Notes & Comments:: Pt taking antihypertensive meds as prescribed, pt instructed on optimal BP and effects of sodium on BP Tobacco Use Tobacco Use: Non-smoker Hypertension Resting Blood Pressure:: 158/84 [place] [employer] Hypertension Guidelines Peak Exercise Blood Pressure:: 182/84 Outcomes/Goals: Able to verbalize/achieve optimal blood pressure <130/80, Incorporates diet changes & exercise for blood pressure control by DC and Other additional outcomes/goals Interventions/plan: Instruct on optimal blood pressure, hypertension & medications, Instruct on effects of sodium, alcohol, stress, exercise &hypertension and Other additional plan/interventions 30 day Reassessments:: Progressing Reassessment Notes & Comments:: Pt taking antihypertensive meds as prescribed, pt instructed on optimal BP and effects of sodium on BP Tobacco Cessation Referral Education Schedule Given:: Yes Psychosocial - 30-Day Assess VIsit Date of Eval: 05/19/25 Session #:: 9 History of previous Mental disease:: No Psychosocial Test Tool Used:: PHQ-9 Questionnaire (0) phq-9 Severity See PHQ-9 Score: 0 Outcomes/Goals: See list Psychosocial Outcomes/Goals:: ID's personal stressors & 2 strategies to manage stress by discharge and Other Additional outcome/goals: Intervention/Plan: See List Interventions/Plan:: Assess stressors,coping strategies & signs of derpression on admission, Instruct/assist pt to develop coping & personal stress Mgt strategies, Refer to Behavioral Health if appropriate, Refer to Physician if appropriate, Instruct patient to recognize signs & symptoms of depression, Instruct patient to recog and Other additional plan/intervention 30-day Reassessments: 30 day Reassessments:: Progressing Reassessment Notes & Comments:: Pt denies any psychosocial issues at this time. Pt verbalizes ways to manage stress in a healthy way. Pt to attend stress management class. Will assess every 30 days Psychosocial - 60-Day Assess Outcomes/Goals: See list Psychosocial Outcomes/Goals:: ID's personal stressors & 2 strategies to manage stress by discharge and Other Additional outcome/goals: Nutrition - 90-Day Assessment Weight Mgt (Other Care) Height: 5 ft 10 in Weight:: 208 lb BMI: 29.8 Nutrition - Final Assessment Weight Mgt (Other Care) Height: 5 ft 10 in Weight:: 208 lb BMI: 29.8
[2025-05-19 09:00] VITALS: BP 158/84
[2025-05-19 09:35] VITALS: BP 158/84; BMI 29.8
== END 2025-06-12 23:59 ==
LOC: CR 15:15
PROVIDERS: Referring Provider Internal Medicine Cardiovascular Disease; Visit Provider Internal Medicine Cardiovascular Disease
DX: I21.3 ST elevation (STEMI) myocardial infarction of unspecified site (principal); E11.69 Type 2 diabetes mellitus with other specified complication; I25.10 Atherosclerotic heart disease of native coronary artery without angina pectoris; Z95.1 Presence of aortocoronary bypass graft; Z98.61 Coronary angioplasty status; E78.5 Hyperlipidemia, unspecified; I10 Essential (primary) hypertension; G47.33 Obstructive sleep apnea (adult) (pediatric)
CPT/HCPCS: 93798

== ENCOUNTER → 2025-06-15 | Outpatient (CLI) | payer BC, SELFPAY ==
[2025-05-19 09:35] VITALS: BMI 29.8
[2025-06-14 11:15] VITALS: BMI 30.2
--- NOTE | 2025-06-15 16:04 | MRI_ITS ---
PROCEDURE: SPINE CERVICAL (ROUTINE) 06/15/2025 REASON FOR EXAM: ARM NUMBESS AFTER SURGERY TECHNIQUE: Procedure Code: MRISPC Modality: MR Procedure: SPINE CERVICAL (ROUTINE) Multiplanar and multisequence images were obtained without IV contrast administration. COMPARISON: None available. FINDINGS: The visualized posterior fossa contents appear within normal limits. The normal cervical lordosis is maintained. The atlantooccipital and atlantoaxial joints appear normally aligned. The cervical vertebral bodies are normal in height. The cervical vertebral bodies are normal in alignment. The cervical bone marrow signal is within normal limits. Multilevel disc desiccation. There is no evidence of cervical spinal cord signal abnormality. C2-C3: No significant spinal canal stenosis or neural foraminal narrowing. C3-C4: No significant spinal canal stenosis. Bilateral facet arthrosis and uncovertebral spurring contribute to moderate bilateral neural foraminal narrowing, [id number]. C4-C5: No significant spinal canal stenosis. Bilateral facet arthrosis and uncovertebral spurring contribute to mild bilateral neural foraminal narrowing. C5-C6: Posterior disc osteophyte complex, bilateral facet arthrosis, and uncovertebral spurring. Mild spinal canal stenosis. Mild right and moderate left neural foraminal narrowing. C6-C7: Disc bulge, bilateral facet arthrosis, and uncovertebral spurring. Mild spinal canal stenosis. [id number] right and moderate left neural foraminal narrowing. C7-T1: No significant spinal canal stenosis or neural foraminal narrowing. MRI/Spine Cervical (Routine) IMPRESSION: Cervical spondylosis without high-grade spinal canal stenosis. Multiple levels of moderate neural foraminal stenosis. Additional details as discussed above. Reading Location: [id number]
== END | disposition home or self-care (01) ==
LOC: MRI 16:03
PROVIDERS: Referring Provider Physician Assistant Medical; Visit Provider Physician Assistant Medical
DX: R20.0 Anesthesia of skin (principal); R20.2 Paresthesia of skin
CPT/HCPCS: 72141

== ENCOUNTER 2025-06-27 15:15 | Outpatient (RCR) | payer BC, SELFPAY ==
[2025-05-19 09:35] VITALS: BMI 29.8
--- NOTE | 2025-06-14 11:03 | PCM.CR.ITP ---
Exercise - Initial Assessment Physician Prescribed Exercise Modalities: Schwinn Airdyne AD-7, SciFit Stepper and SciFit Lateral [employer] Support Coordinator Nutrition - Initial Assessment Weight Mgt (Other Care) Height: 5 ft 10 in Weight:: 211 lb BMI: 30.2 Psychosocial - Initial Assess Referral to Behavioral Health PS - Interventions: Yes: Attend Stress Management Classes Exercise - 30-day Assessment Physician Prescribed Exercise Modalities: Schwinn Airdyne AD-7, SciFit Stepper and SciFit Lateral [place] Exercise - 60-day Assessment Visit Date of Eval: 06/14/25 Session #:: 15 Physician Prescribed Exercise Modalities: Schwinn Airdyne AD-7, SciFit Stepper and SciFit Lateral [employer] Support Coordinator Frequency: 3x/week for 12 weeks [36 sessions] Intensity: 60-80% of age predicted maximum heart rate reserve Duration: 30 - 45 minutes Current METSs:: 5.5 Target Heart Rate:: 98-130 Current RPE:: 12-13 Maximum Excercise HR:: 118 Resting Blood Pressure: 142/78 Maximum Exercise Blood Pressure: 162/98 EKG Type: NSR-ST with rare PVC Outcomes & Goals Goals:: Verbalizes understanding of THR, RPE & goal METS by session 6, Documents in home exercise log/reports 30 min aerobic 5 day/wk by DC, Demonstrates accurate pulse taking by DC and Other additional outcome/goals: see below Intervention & Plan Exercise Program Goals: Instruct on personal THR & RPE, Instruct on MET level & personal MET goal, Show patient to take own pulse /validate performance until accurate, Instruct on home exercise and Other additional plan/int 30-day Reassessments 30 day Reassessments:: Progressing Reassessment Notes & Comments:: Pt continuing to increase his exercise intensity. Physical Activity Home Exercise Physical Activity - Home Exercise: Safe Exercise, Warm-up, Self-monitoring, Cool-Down, Home Exercise > 30 min Daily and Sitting Time <3 hours/daily Outcomes & Goals Outcomes/Goals: Demonstrates correct Warm-up/exercise Cool-Down (S3) if = 2.5 METs, Verbalizes symptoms of exercise intolerance by Session 3 (S3), Demonstrate safe equipment use (S3) & follows exercise prescrition (6) and Other: See below Intervention & Plan Plan/Intervention: Instruct warm-up & cool-down if exercising at > 2 METs, Instruct on symptoms of exercise intolerance & actions to take, Instruct & monitor on saf, Assess intial functional capacity & safety risk and Other See below 30-day Reassessments 30 day Reassessments:: Progressing Reassessment Notes & Comments:: Pt continuing to increase exercise intensity as directed. Pt demonstrates proper warm up and cool down as part of his routine. Will continue to monitor. Exercise - 90-day Assessment Physician Prescribed Exercise Modalities: Ruchi Hobbsne AD-7, SciFit Stepper and SciFit Lateral Faculty Support Coordinator Exercise - Final/Discharge Physician Prescribed Exercise Modalities: Roeln Fabyne AD-7, SciFit Stepper and SciFit Lateral [place] Nutrition - 30-Day Assessment Weight Mgt (Other Care) Height: 5 ft 10 in Weight:: 211 lb BMI: 30.2 Nutrition - 60-Day Assessment Program Goals Nutrition Program Goals Patient has diagnosis of Hyperlipidemia (ICD E78)?: Yes Visit Date of Eval: 06/14/25 Session #:: 15 (nutrition score 1) Cholesterol/Lipids (Other Core Measures) Determine presence & major risk factors that modify LDL goal: Cigarette smoking, Hypertension or hypertensive medication, Low HDL cholesterol <40 mg/dL*, Family history of premature CHD in Male < 55 years: female <65 yearsFa and Age men > 45 years; women >/= 55 years Outcomes/Goals: Pt IDs own risk factors & lifestyle modifications by Session 10, Verbalizes symptoms of angina & response by session 3., Pt independently manages and Other Additional Outcomes/Goals: Intervention/Plan: Advocate for lipid panel cholesterol medication if applicable, Instruct on personal lipid levels & lipid goals/NCEP guidelines, Instruct on cholesterol and Other additional plan/int 30-day Reassessments:: Progressing Reassessment Notes & Comments:: Pt to attend nutrition class with hospital flow coordinator. Solitario continue to encourage low sodium heart healthy diet. Diabetes (Other Core Measures) Diabetes Type: Diagnosis Type II ICD-10 E11 Insulin dependent injection/pump?: Yes Do you monitor your blood sugar at home?: Yes Outcomes/Goals:: Able to state symptoms of, Able to state, Able to state and Other additional Intervention/Plan:: Instruct on, Refer to, Instruct on and Other 30-day Reassessments:: Progressing Reassessment Notes & Comments:: Pt encouraged to monitor blood sugar, follow ADA diet, and to take diabetes medications as prescribed. Weight Mgt (Other Care) Height: 5 ft 10 in Weight:: 211 lb BMI: 30.2 Diagnosis Overweight/Obesity BMI> 30% ICD-10 E66: Yes Diagnosis High BMI/Morbid Obesity BMI> 35% ICD-10 Z68: No Outcomes/Goals: Pt sets, maintains & shows weight loss goal & trend during rehab and Other additional outcomes/goals Intervention/Plan: Instruct on ideal BMI & set weight loss goal w/patient, Assist pt to ID & incorporate diet changes for weight loss by S9, Refer to Structured Weight Loss program as appropriate, Encourage goal of using 250-300dcal per session for weight loss and Other additional plan/interventions 30 day Reassessments:: Progressing Reassessment Notes & Comments:: Pt to attend nutrition class with hospital flow coordinator. Will continue to encourage healthy weight and heart healthy diet. Healthy Eating Habits Will attend diet classes:: Yes Outcomes/Goals:: Consume diet rich in vegs,fruits,whole grain/high fiber,fish,lean meat, Limit sat/trans fats,cholesterol & added salts & sugars and Other additional outcome/goals: Intervention/Plan:: Assess current eating habits and Other Additional plan/interventions 30-day Reassessments:: Progressing Reassessment Notes & Comments:: Pt to attend nutrition class with hospital flow coordinator. Will continue to encourage healthy weight and heart healthy diet. Education Gave educational materials for:: Signs & symptoms of hypoglycemia, Signs & symptoms of hyperglycemia, Relate diabetes to coronary artery disease and Healthy eating Core - 60-Day Assessment Visit Date of Eval: 06/14/25 Session #:: 15 Medication Compliance Preventative Medication(s):: Aspirin, CATY inhibitor, Ticagrelor/P2Y12 inhibitor and Beta liliana H/O mental health issues: depression, anxiety, or addiction?: No Doesn?t believe in the benefits of treatment?: No Believes medications are unnecessary or harmful?: No Has a concern about medication side effects?: No Expresses concern over the cost of medications?: No Outcomes/Goals: Verbalizes medications,desired effect & common side effects @ DC, Pt self-reports following medication regimen, Keeps card in wallet w/medications listed by DC and Other additional outcome/goals: Interventions/plans: Instruct on medication effects & side effects, Review medication list w/patient every two weeks, Instruct importance of taking meds as ordered & assist problem solving and Other additional 30-day Reassessments:: Progressing Reassessment Notes & Comments:: Pt off statins after discussing with provider. Pt reports taking other medications as prescribed. Will continue to monitor BP's and report to pt's physician as necessary. Tobacco Use Tobacco Use: Non-smoker Hypertension Hypertension Diagnosis:: Hypertension ICD-10 I10 Resting Blood Pressure:: 142/78 [place] [employer] Hypertension Guidelines Peak Exercise Blood Pressure:: 162/98 Outcomes/Goals: Able to verbalize/achieve optimal blood pressure <130/80, Incorporates diet changes & exercise for blood pressure control by DC and Other additional outcomes/goals Interventions/plan: Instruct on optimal blood pressure, hypertension & medications, Instruct on effects of sodium, alcohol, stress, exercise &hypertension and Other additional plan/interventions 30 day Reassessments:: Progressing Reassessment Notes & Comments:: Pt taking meds as prescribed, BP's vary. Low sodium heart healthy diet encouraged. Will continue to monitor BP's and report to pt's physician as necessary Tobacco Cessation Referral Education Schedule Given:: Yes Psychosocial - 30-Day Assess Referral to Behavioral Health PS - Interventions: Yes: Attend Stress Management Classes Outcomes/Goals: See list Psychosocial Outcomes/Goals:: ID's personal stressors & 2 strategies to manage stress by discharge and Other Additional outcome/goals: Psychosocial - 60-Day Assess VIsit Date of Eval: 06/14/25 Session #:: 15 History of previous Mental disease:: No Psychosocial Test Tool Used:: [employer] QOL Cardiac and PHQ-9 Questionnaire phq-9 Severity See PHQ-9 Score: 0 Referral to Behavioral Health PS - Interventions: Yes: Attend Stress Management Classes Outcomes/Goals: See list Psychosocial Outcomes/Goals:: ID's personal stressors & 2 strategies to manage stress by discharge and Other Additional outcome/goals: Intervention/Plan: See List Interventions/Plan:: Assess stressors,coping strategies & signs of derpression on admission, Instruct/assist pt to develop coping & personal stress Mgt strategies, Refer to Behavioral Health if appropriate, Refer to Physician if appropriate, Instruct patient to recognize signs & symptoms of depression, Instruct patient to recog and Other additional plan/intervention 30-day Reassessments: 30 day Reassessments:: Progressing Reassessment Notes & Comments:: Pt denies any psychosocial issues at his time. Pt to attend stress management class. Will reassess every 30days. Psychosocial - 90-Day Assess Referral to Behavioral Health PS - Interventions: Yes: Attend Stress Management Classes Psychosocial - Final Assessmen Referral to Behavioral Health PS - Interventions: Yes: Attend Stress Management Classes Nutrition - 90-Day Assessment Weight Mgt (Other Care) Height: 5 ft 10 in Weight:: 211 lb BMI: 30.2 Nutrition - Final Assessment Weight Mgt (Other Care) Height: 5 ft 10 in Weight:: 211 lb BMI: 30.2
[2025-06-14 11:15] VITALS: BP 142/78; BMI 30.2
[2025-06-14 11:33] VITALS: BP 142/78
--- NOTE | 2025-07-13 08:03 | PCM.CR.ITP ---
Exercise - Initial Assessment Physician Prescribed Exercise Modalities: Treadmill, Schwinn Airdyne AD-7, SciFit Stepper and SciFit Lateral [place] Nutrition - Initial Assessment Weight Mgt (Other Care) Height: 5 ft 10 in Weight:: 212 lb BMI: 30.4 Psychosocial - Initial Assess Referral to Behavioral Health PS - Interventions: Yes: Attend Stress Management Classes Exercise - 30-day Assessment Physician Prescribed Exercise Modalities: Treadmill, Schwinn Airdyne AD-7, SciFit Stepper and SciFit Lateral [place] Exercise - 60-day Assessment Physician Prescribed Exercise Modalities: Treadmill, Schwinn Airdyne AD-7, SciFit Stepper and SciFit Lateral [place] Exercise - 90-day Assessment Visit Date of Eval: 07/13/25 Session #:: 21 Physician Prescribed Exercise Modalities: Treadmill, Schwinn Airdyne AD-7, SciFit Stepper and SciFit Lateral [place] Frequency: 3x/week for 12 weeks [36 sessions] Intensity: 60-80% of age predicted maximum heart rate reserve Duration: 30 - 45 minutes Current METSs:: 5.6 Target Heart Rate:: 98-130 Current RPE:: 12-14 Maximum Excercise HR:: 127 Resting Blood Pressure: 114/56 Maximum Exercise Blood Pressure: 150/80 EKG Type: NSR to ST w/rare PVC Outcomes & Goals Goals:: Verbalizes understanding of THR, RPE & goal METS by session 6, Documents in home exercise log/reports 30 min aerobic 5 day/wk by DC, Demonstrates accurate pulse taking by DC and Other additional outcome/goals: see below Intervention & Plan Exercise Program Goals: Instruct on personal THR & RPE, Instruct on MET level & personal MET goal, Show patient to take own pulse /validate performance until accurate, Instruct on home exercise and Other additional plan/int Physical Activity Home Exercise Physical Activity - Home Exercise: Safe Exercise, Warm-up, Self-monitoring, Cool-Down, Home Exercise > 30 min Daily and Sitting Time <3 hours/daily Outcomes & Goals Outcomes/Goals: Demonstrates correct Warm-up/exercise Cool-Down (S3) if = 2.5 METs, Verbalizes symptoms of exercise intolerance by Session 3 (S3), Demonstrate safe equipment use (S3) & follows exercise prescrition (6) and Other: See below Intervention & Plan Plan/Intervention: Instruct warm-up & cool-down if exercising at > 2 METs, Instruct on symptoms of exercise intolerance & actions to take, Instruct & monitor on saf, Assess intial functional capacity & safety risk and Other See below 30-day Reassessments 30 day Reassessments:: Progressing Reassessment Notes & Comments:: Pt has been able to increase his workloads to 5.6 METS. Will continue to encourage and increase exercise workloads as tolerated. 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 Lisinopril was added 05/20/25. Will continue to monitor and report to pt's physician if necessary. Core - Final Assessment Hypertension [place] [employer] Hypertension Guidelines Reassessment Notes & Comments:: Pt's BP's are within AHA normal limits on some days. Lisinopril was added 05/20/25. Will continue to monitor and report to pt's physician if necessary. Core - 90 Day Assessment Medication Compliance Preventative Medication(s):: Aspirin, CATY inhibitor, Ticagrelor/P2Y12 inhibitor and Beta liliana H/O mental health issues: depression, anxiety, or addiction?: No Doesn?t believe in the benefits of treatment?: No Believes medications are unnecessary or harmful?: No Has a concern about medication side effects?: No Expresses concern over the cost of medications?: No Outcomes/Goals: Verbalizes medications,desired effect & common side effects @ DC, Pt self-reports following medication regimen, Keeps card in wallet w/medications listed by DC and Other additional outcome/goals: Interventions/plans: Instruct on medication effects & side effects, Review medication list w/patient every two weeks, Instruct importance of taking meds as ordered & assist problem solving and Other additional Tobacco Use Tobacco Use: Non-smoker Hypertension Hypertension Diagnosis:: Hypertension ICD-10 I10 Resting Blood Pressure:: 114/56 [place] [employer] Hypertension Guidelines Peak Exercise Blood Pressure:: 150/80 Outcomes/Goals: Able to verbalize/achieve optimal blood pressure <130/80, Incorporates diet changes & exercise for blood pressure control by DC and Other additional outcomes/goals Interventions/plan: Instruct on optimal blood pressure, hypertension & medications, Instruct on effects of sodium, alcohol, stress, exercise &hypertension and Other additional plan/interventions 30 day Reassessments:: Progressing Reassessment Notes & Comments:: Pt's BP's are within AHA normal limits on some days. Lisinopril was added 05/20/25. Will continue to monitor and report to pt's physician if necessary. Tobacco Cessation Referral Smoking Cessation Referral:: No Individual Education/Counseling:: No Education Schedule Given:: Yes Psychosocial - 30-Day Assess Referral to Behavioral Health PS - Interventions: Yes: Attend Stress Management Classes Psychosocial - 60-Day Assess Referral to Behavioral Health PS - Interventions: Yes: Attend Stress Management Classes Psychosocial - 90-Day Assess VIsit Date of Eval: 07/13/25 Session #:: 21 History of previous Mental disease:: No Psychosocial Test Tool Used:: Silent Communication QOL Cardiac and PHQ-9 Questionnaire phq-9 Severity See PHQ-9 Score: 0 Referral to Behavioral Health PS - Interventions: Yes: Attend Stress Management Classes Outcomes/Goals: See list Psychosocial Outcomes/Goals:: ID's personal stressors & 2 strategies to manage stress by discharge and Other Additional outcome/goals: Intervention/Plan: See List Interventions/Plan:: Assess stressors,coping strategies & signs of derpression on admission, Instruct/assist pt to develop coping & personal stress Mgt strategies, Refer to Behavioral Health if appropriate, Refer to Physician if appropriate, Instruct patient to recognize signs & symptoms of depression, Instruct patient to recog and Other additional plan/intervention 30-day Reassessments: 30 day Reassessments:: Met Reassessment Notes & Comments:: Pt has attended stress management classes. Pt denies any psychosocial issues at this time. Psychosocial - Final Assessmen Referral to Behavioral Health PS - Interventions: Yes: Attend Stress Management Classes Nutrition - 90-Day Assessment Program Goals Nutrition Program Goals Patient has diagnosis of Hyperlipidemia (ICD E78)?: Yes Visit Date of Eval: 07/13/25 Session #:: 21 (Survey score of 1.) Cholesterol/Lipids (Other Core Measures) Determine presence & major risk factors that modify LDL goal: Cigarette smoking, Hypertension or hypertensive medication, Low HDL cholesterol <40 mg/dL*, Family history of premature CHD in Male < 55 years: female <65 yearsFa and Age men > 45 years; women >/= 55 years Outcomes/Goals: Pt IDs own risk factors & lifestyle modifications by Session 10, Verbalizes symptoms of angina & response by session 3., Pt independently manages and Other Additional Outcomes/Goals: Intervention/Plan: Advocate for lipid panel cholesterol medication if applicable, Instruct on personal lipid levels & lipid goals/NCEP guidelines, Instruct on cholesterol and Other additional plan/int Diabetes (Other Core Measures) Diabetes Type: Diagnosis Type II ICD-10 E11 Insulin dependent injection/pump?: Yes Do you monitor your blood sugar at home?: Yes 30-day Reassessments:: Progressing Reassessment Notes & Comments:: Pt monitors his BS as directed by his physician. Weight Mgt (Other Care) Height: 5 ft 10 in Weight:: 212 lb BMI: 30.4 Diagnosis Overweight/Obesity BMI> 30% ICD-10 E66: Yes Diagnosis High BMI/Morbid Obesity BMI> 35% ICD-10 Z68: No Outcomes/Goals: Pt sets, maintains & shows weight loss goal & trend during rehab and Other additional outcomes/goals Intervention/Plan: Instruct on ideal BMI & set weight loss goal w/patient, Assist pt to ID & incorporate diet changes for weight loss by S9, Refer to Structured Weight Loss program as appropriate, Encourage goal of using 250-300dcal per session for weight loss and Other additional plan/interventions 30 day Reassessments:: Progressing Reassessment Notes & Comments:: Pt has attended nutrition classes with our sugar cane grower. Low sodium heart healthy diet encouraged. Healthy Eating Habits Will attend diet classes:: Yes Outcomes/Goals:: Consume diet rich in vegs,fruits,whole grain/high fiber,fish,lean meat, Limit sat/trans fats,cholesterol & added salts & sugars and Other additional outcome/goals: Intervention/Plan:: Assess current eating habits and Other Additional plan/interventions 30-day Reassessments:: Met Reassessment Notes & Comments:: Pt has attended nutrition classes with our sugar cane grower. Low sodium heart healthy diet encouraged. Education Gave educational materials for:: Signs & symptoms of hypoglycemia, Signs & symptoms of hyperglycemia, Relate diabetes to coronary artery disease and Healthy eating Nutrition - Final Assessment Weight Mgt (Other Care) Height: 5 ft 10 in Weight:: 212 lb BMI: 30.4
[2025-07-13 08:10] VITALS: BP 114/56
[2025-07-13 08:17] VITALS: BP 114/56; BMI 30.4
== END 2025-07-13 23:59 ==
LOC: CR 15:15
PROVIDERS: Referring Provider Internal Medicine Cardiovascular Disease; Visit Provider Internal Medicine Cardiovascular Disease
DX: I21.3 ST elevation (STEMI) myocardial infarction of unspecified site (principal); E11.69 Type 2 diabetes mellitus with other specified complication; I25.10 Atherosclerotic heart disease of native coronary artery without angina pectoris; Z95.1 Presence of aortocoronary bypass graft; Z98.61 Coronary angioplasty status; E78.5 Hyperlipidemia, unspecified; I10 Essential (primary) hypertension; G47.33 Obstructive sleep apnea (adult) (pediatric)
CPT/HCPCS: 93798